=== PATIENT | male | born 1985 | race Caucasian/White ===

== ENCOUNTER → 2018-02-24 14:12 | Outpatient (CLI) | payer MEDICAID, SELFPAY ==
[2018-02-24 15:21] LABS: Absolute Neutrophil Count 3.1 X10^3/uL (2.0-7.7); Basophil# 0.02 X10^3/uL; Basophil% 0.4 % (0-1); Eosinophil# 0.24 X10^3/uL; Eosinophils% 4.7 % (0-5); Hematocrit 42.1 % (40-54); Hemoglobin 15.1 g/dl (13.0-16.5); Lymphocyte % 29.2 % (19-41); Mean Corp Hgb Conc 35.9 g/gl (32-36); Mean Corpuscular Hgb 29.7 pg (27.0-32.0); Mean Corpuscular Volume 82.9 fL (80-94); Monocyte# 0.33 X10^3/uL; Monocyte% 6.4 % (0-10); Neutrophil # 3.05 X10^3/uL (2.7-7.7); Neutrophil % 59.3 % (47-70); Platelet Count 305 K/mm3 (150-450); RBC Distribution Width CV 12.9 % (11.6-14.6); RBC Distribution Width SD 38.4 fl (35.1-43.9); Red Blood Count 5.08 M/mm3 (4.6-6.2); White Blood Count 5.1 K/mm3 (4.4-11.0)
[2018-02-24 15:23] LABS: POSITIVE COUNT NO; POSITIVE DIFFERENTIAL NO; POSITIVE MORPHOLOGY NO
[2018-02-24 15:43] LABS: ALB/GLOB Ratio 1.1 RATIO (0.9-2.4); AST(SGOT) 56 U/L (15-37); Alanine Aminotransfer ALT/SGPT 75 U/L (16-61); Albumin, Serum 3.9 g/dL (3.2-5.0); Alkaline Phosphatase 98 U/L (45-117); Anion Gap 12 (5-15); BUN 5 mg/dL (7-18); BUN/Creat Ratio 4.8 RATIO (10-20); Calcium,Total 8.6 mg/dL (8.5-10.1); Chloride 99 mmol/L (98-107); Creatinine, Serum 1.04 mg/dL (0.70-1.30); EST Glomerular Filtration Rate 87 mL/min (>60); Est Glom Filt Rate - Afr Amer 106 mL/min (>60); Globulin 3.6 g/dL (2.2-4.2); Glucose 269 mg/dL (74-106); Potassium 3.3 mmol/L (3.5-5.1); Protein, Total 7.5 g/dL (6.4-8.2); Sodium Level 134 mmol/L (136-145); Thyroid Stim Hormone (TSH) 1.41 uIU/mL (0.358-3.74)
[2018-02-25 10:30] LABS: Hemoglobin A1c 6.7 % (4.2-6.3)
== END ==
PROVIDERS: Family Provider Family Medicine Geriatric Medicine; PCP Family Medicine Geriatric Medicine; Visit Provider Family Medicine Geriatric Medicine
DX: R53.83 Other fatigue (principal); R79.9 Abnormal finding of blood chemistry, unspecified
CPT/HCPCS: 36415; 80053; 83036; 84443; 85025

== ENCOUNTER 2018-04-23 19:09 | Emergency (ER) | payer MEDICAID, SELFPAY ==
[2018-04-23 19:11] VITALS: BP 164/82; PULSE 87; RESP 16; TEMP 36.6; O2SAT 98; BMI 36.2
--- NOTE | 2018-04-23 19:49 | CT_ITS ---
STUDY: CT ABDOMEN AND PELVIS WITHOUT CONTRAST REASON FOR EXAM: Male, 32 years old. Right groin pain RADIATION DOSAGE (If Supplied By Facility): CTDIvol = ( 20.17 ) mGy, DLP = ( 1194.29 ) mGycm TECHNIQUE: Transaxial images were obtained from the dome of the diaphragm to the symphysis pubis without oral contrast, and without intravenous contrast. Sagittal and coronal images were reconstructed. Individualized dose optimization techniques were used for this CT. COMPARISON: None. FINDINGS: Evaluation of the abdominal viscera is limited in the absence of intravenous contrast. The visualized lung bases are clear. The visualized portions of the heart and pericardium are within normal limits. There are no calcified gallstones present. The liver is low in density, consistent with fatty infiltration. The spleen is enlarged, measuring 13.9 cm in maximal dimension. The pancreas demonstrates an unremarkable unenhanced appearance. The adrenal glands are within normal limits. There are no renal or ureteral stones. There is no hydronephrosis. Normal visualized stomach. There is no bowel obstruction or inflammation. The appendix is visualized and appears normal. The aorta is normal in caliber. There is no abdominal or pelvic free air, free fluid, fluid collection or lymphadenopathy. There are no destructive osseous lesions. CT/Abdomen/Pelvis without Cont IMPRESSION: Fatty liver. Splenomegaly. No bowel obstruction or inflammation. Normal appendix. No urinary calculi. No hydronephrosis. Electronically Signed: Conrado Parish, at 20:38 EDT Tel , Service support ,
--- NOTE | 2018-04-23 21:24 | ED.VISSUMM ---
- ER Visit Summary Date of Service: 04/23/18 Chief Complaint: Right groin pain History of Present Illness: The patient is a 32 M who presents with right groin pain. It began after moving a refrigerator 3 weeks ago. He states that it has been worsening. He is concerned for possible hernia. He denies abdominal pain nausea vomiting chest pain shortness breath fevers rash review of systems otherwise negative. Pain is sharp. It is worse with certain movements or palpation. Physical Examination: Afebrile vitals are unremarkable Moist mucous membranes Heart regular rate and rhythm Lungs clear Abdomen soft nontender nondistended he does have some right groin tenderness no palpable hernia normal genitourinary exam Test Results: CT of the abdomen and pelvis shows splenic megaly but no acute findings no note is made of hernia. Emergency Department Course and Treatment: Patient is resting comfortably on reevaluation. He was advised this is most likely a muscular strain. He was advised on supportive care. He was instructed on specific signs and symptoms to monitor for and conditions under which to return to the emergency department. He was advised to follow-up with her primary care physician was discharged home. Treatment Plan: [] Disposition: Discharge Impression: Right groin strain This note was generated with [employer] dictation software. It may contain incorrect words, spelling, and punctuation that were not noted in review of the chart prior to signing ED Disposition - Plan for ED Patient: Chief Complaint: Other, Pain/Inj Referrals: Andrea Lazaro Chi, MD [Primary Care Provider] -
--- NOTE | 2018-04-23 21:26 | ED.DEP ---
ED Disposition - Plan for ED Patient: Chief Complaint: Other, Pain/Inj Instructions: ED Strain Groin Referrals: Andrea Lazaro Chi, MD [Primary Care Provider] -
[2018-04-23 21:35] VITALS: BP 140/80; PULSE 70; RESP 18; O2SAT 100
== END 2018-04-23 21:36 | disposition home or self-care (01) ==
LOC: ED 19:56
PROVIDERS: Emergency Provider Emergency Medicine; Family Provider Family Medicine Geriatric Medicine; PCP Family Medicine Geriatric Medicine
DX: S39.011A Strain of muscle, fascia and tendon of abdomen, initial encounter (principal); F31.9 Bipolar disorder, unspecified; Z79.899 Other long term (current) drug therapy; X50.0XXA Overexertion from strenuous movement or load, initial encounter; Y93.89 Activity, other specified; Y92.000 Kitchen of unspecified non-institutional (private) residence as the place of occurrence of the external cause; Y99.8 Other external cause status
CPT/HCPCS: 74176; 99282

== ENCOUNTER → 2019-04-25 12:13 | Outpatient (CLI) | payer MEDICAID, SELFPAY ==
[2019-04-25 12:43] LABS: Absolute Lymphocyte Count 1.32 X10^3/ul (0.83-4.51); Absolute Neutrophil Count 2.8 X10^3/uL (2.0-7.7); Basophil# 0.03 X10^3/uL; Basophil% 0.6 % (0-1); Eosinophil# 0.38 X10^3/uL; Eosinophils% 7.8 % (0-5); Hematocrit 42.5 % (40-54); Hemoglobin 15.2 g/dl (13.0-16.5); Lymphocyte # 1.32 X10^3/ul (4.0); Lymphocyte % 27.2 % (19-41); Mean Corp Hgb Conc 35.8 g/gl (32-36); Mean Corpuscular Hgb 28.6 pg (27.0-32.0); Mean Platelet Vol. 9.7 fl (6.2-12.0); Monocyte# 0.34 X10^3/uL; Neutrophil # 2.78 X10^3/uL (2.7-7.7); Neutrophil % 57.2 % (47-70); Platelet Count 238 K/mm3 (150-450); RBC Distribution Width CV 13.6 % (11.6-14.6); RBC Distribution Width SD 37.9 fl (35.1-43.9); Red Blood Count 5.31 M/mm3 (4.6-6.2); White Blood Count 4.9 K/mm3 (4.4-11.0)
[2019-04-25 12:45] LABS: POSITIVE COUNT NO; POSITIVE DIFFERENTIAL NO; POSITIVE MORPHOLOGY NO
[2019-04-25 13:14] LABS: AST(SGOT) 33 U/L (15-37); Alanine Aminotransfer ALT/SGPT 68 U/L (16-61); Albumin, Serum 3.6 g/dL (3.2-5.0); Alkaline Phosphatase 84 U/L (45-117); Anion Gap 11 (5-15); BUN 10 mg/dL (7-18); BUN/Creat Ratio 11.1 RATIO (10-20); Calcium,Total 8.6 mg/dL (8.5-10.1); Chloride 100 mmol/L (98-107); EST Glomerular Filtration Rate 103 mL/min (>60); Est Glom Filt Rate - Afr Amer 124 mL/min (>60); Globulin 3.5 g/dL (2.2-4.2); Glucose 338 mg/dL (74-106); Potassium 3.8 mmol/L (3.5-5.1); Protein, Total 7.1 g/dL (6.4-8.2); Sodium Level 135 mmol/L (136-145); Thyroid Stim Hormone (TSH) 2.07 uIU/mL (0.358-3.74)
[2019-04-25 17:43] LABS: Hemoglobin A1c 8.2 % (4.2-6.3)
== END ==
PROVIDERS: Family Provider Family Medicine Geriatric Medicine; PCP Family Medicine Geriatric Medicine; Visit Provider Family Medicine Geriatric Medicine
DX: R53.83 Other fatigue (principal)
CPT/HCPCS: 36415; 80053; 83036; 84443; 85025

== ENCOUNTER → 2019-06-26 08:56 | Outpatient (CLI) | payer MEDICAID, SELFPAY ==
[2019-06-26 09:40] LABS: Absolute Lymphocyte Count 1.33 X10^3/uL (0.83-4.51); Basophil# 0.03 X10^3/uL; Basophil% 0.6 % (0-1); Eosinophil# 0.38 X10^3/uL; Eosinophils% 7.4 % (0-5); Hematocrit 40.2 % (40-54); Hemoglobin 14.3 g/dL (13.0-16.5); Lymphocyte # 1.33 X10^3/ul (4.0); Lymphocyte % 25.9 % (19-41); Mean Corp Hgb Conc 35.6 g/dL (32-36); Mean Corpuscular Hgb 29.2 pg (27.0-32.0); Mean Corpuscular Volume 82.2 fL (80-94); Mean Platelet Vol. 9.4 fl (6.2-12.0); Monocyte# 0.41 X10^3/uL; NRBC Flagged by Analyzer 0 % (0-5); Neutrophil # 2.97 X10^3/uL (2.7-7.7); Neutrophil % 57.9 % (47-70); Platelet Count 238 K/mm3 (150-450); RBC Distribution Width CV 12.5 % (11.6-14.6); RBC Distribution Width SD 37.1 fl (35.1-43.9); Red Blood Count 4.89 M/mm3 (4.6-6.2); White Blood Count 5.1 K/mm3 (4.4-11.0)
[2019-06-26 10:09] LABS: ALB/GLOB Ratio 0.9 RATIO (0.9-2.4); AST(SGOT) 21 U/L (15-37); Alanine Aminotransfer ALT/SGPT 51 U/L (16-61); Albumin, Serum 3.6 g/dL (3.2-5.0); Alkaline Phosphatase 85 U/L (45-117); Anion Gap 9 (5-15); BUN 7 mg/dL (7-18); BUN/Creat Ratio 7.3 RATIO (10-20); Calcium,Total 9.1 mg/dL (8.5-10.1); Chloride 102 mmol/L (98-107); Creatinine, Serum 0.96 mg/dL (0.70-1.30); EST Glomerular Filtration Rate 95 mL/min (>60); Est Glom Filt Rate - Afr Amer 114 mL/min (>60); Globulin 3.8 g/dL (2.2-4.2); Glucose 334 mg/dL (74-106); Potassium 3.8 mmol/L (3.5-5.1); Protein, Total 7.4 g/dL (6.4-8.2); Sodium Level 137 mmol/L (136-145)
[2019-06-28 20:18] LABS: HEPATITIS B SURFACE AG Negative (Negative); Hepatitis A AB, Total Negative (Negative); Hepatitis A IgM Antibody Negative (Negative); Hepatitis B Core AB IgM Negative (Negative); Hepatitis B Core Ab Total Negative (Negative); Hepatitis C Ab <0.1 s/co ratio (0.0-0.9); QNTFERON TB Mitogen Value > 10.00 IU/mL (.); QNTFERON TB Nil Value 0.02 IU/mL (.); QNTFERON TB1+ Ag Value 0.03 IU/mL (.); QNTFERON TB2+ Ag Value 0.03 IU/mL (.)
[2019-06-29 09:38] LABS: Hep B Surface Antibodies Non Reactive (.); QNTIFERON TB Positive Criteria Negative (Negative)
== END ==
PROVIDERS: Family Provider Family Medicine Geriatric Medicine; PCP Family Medicine Geriatric Medicine; Referring Provider Dermatology Pediatric Dermatology; Visit Provider Dermatology Pediatric Dermatology
DX: L40.0 Psoriasis vulgaris (principal); Z79.899 Other long term (current) drug therapy
CPT/HCPCS: 36415; 80053; 85025; 86480; 86704; 86705; 86706; 86708; 86709; 86803; 87340

== ENCOUNTER 2022-02-26 14:46 | Outpatient (CLI) | payer OTHER, SELFPAY ==
[2022-02-26 15:16] LABS: Absolute Lymphocyte Count 1.02 X10^3/uL (0.83-4.51); Absolute Neutrophil Count 3.3 X10^3/uL (2.0-7.7); Basophil# 0.03 X10^3/uL; Basophil% 0.6 % (0-1); Eosinophil# 0.23 X10^3/uL; Eosinophils% 4.5 % (0-5); Hematocrit 44.2 % (40-54); Hemoglobin 15.8 g/dL (13.0-16.5); Lymphocyte # 1.02 X10^3/ul (0.83-4.51); Lymphocyte % 20.1 % (19-41); Mean Corp Hgb Conc 35.7 g/dL (32-36); Mean Corpuscular Hgb 29.6 pg (27.0-32.0); Mean Corpuscular Volume 82.8 fL (80-94); Mean Platelet Vol. 8.9 fl (6.2-12.0); Monocyte# 0.52 X10^3/uL; Monocyte% 10.2 % (0-10); NRBC Flagged by Analyzer 0 % (0-5); Neutrophil # 3.27 X10^3/uL (2.7-7.7); Neutrophil % 64.4 % (47-70); Platelet Count 222 K/mm3 (150-450); RBC Distribution Width SD 38.6 fl (35.1-43.9); Red Blood Count 5.34 M/mm3 (4.6-6.2); White Blood Count 5.1 K/mm3 (4.4-11.0)
[2022-02-26 15:34] LABS: Erythrocyte Sedimentation Rate 14 mm/hr (0-20)
[2022-02-26 15:49] LABS: ALB/GLOB Ratio 1.1 RATIO (0.9-2.4); AST(SGOT) 30 U/L (15-37); Alanine Aminotransfer ALT/SGPT 66 U/L (16-61); Albumin, Serum 3.9 g/dL (3.2-5.0); Alkaline Phosphatase 90 U/L (45-117); Anion Gap 6 (5-15); BUN 5 mg/dL (7-18); BUN/Creat Ratio 5.7 RATIO (10-20); Calcium,Total 8.9 mg/dL (8.5-10.1); Chloride 102 mmol/L (98-107); Creatinine, Serum 0.88 mg/dL (0.70-1.30); EST Glomerular Filtration Rate 104 mL/min (>60); Est Glom Filt Rate - Afr Amer 126 mL/min (>60); Globulin 3.7 g/dL (2.2-4.2); Glucose 274 mg/dL (74-106); LDH 199 U/L (87-241); Potassium 3.8 mmol/L (3.5-5.1); Protein, Total 7.6 g/dL (6.4-8.2); Sodium Level 134 mmol/L (136-145)
[2022-03-03 12:00] LABS: Anti-Centromere B Ab <0.2 AI (0.0-0.9); Anti-Chromatin <0.2 AI (0.0-0.9); Anti-Jo <0.2 AI (0.0-0.9); Anti-Scleroderma-70 AB <0.2 AI (0.0-0.9); RNP Ab <0.2 AI (0.0-0.9); SJOGREN'S Anti-SS-A test < 0.2 AI (0.0-0.9); SJOGREN'S Anti-SS-B test < 0.2 AI (0.0-0.9); Smith Ab <0.2 AI (0.0-0.9)
[2022-03-03 12:01] LABS: Endomysial Antibody IgA Negative (Negative); Immunoglobulin A 133 mg/dL (90-386); Immunoglobulin E 203 IU/mL (6-495); Immunoglobulin G 965 mg/dL (603-1613)
[2022-03-03 12:14] LABS: Immunoglobulin M 50 mg/dL (20-172); t-Transglutaminase IgA <2 U/mL (0-3)
[2022-03-03 16:58] LABS: Anti-dsDNA Ab <1 IU/mL (0-9)
== END 2022-02-26 23:59 | disposition home or self-care (01) ==
LOC: LAB 14:47
PROVIDERS: PCP Family Medicine Geriatric Medicine; Visit Provider Internal Medicine Gastroenterology
DX: K50.90 Crohn's disease, unspecified, without complications (principal)
CPT/HCPCS: 36415; 80053; 82784; 82785; 83516; 83615; 85025; 85652; 86140; 86225; 86235; 86255

== ENCOUNTER 2023-01-11 08:23 | Day surgery (SDC) | payer MEDICAID, SELFPAY ==
[2023-01-11 09:01] VITALS: BP 137/86; PULSE 80; RESP 16; TEMP 36.2; O2SAT 98; BMI 36.2
--- NOTE | 2023-01-11 09:30 | RAD_ITS ---
STUDY: X-RAY - CERVICAL SPINE REASON FOR EXAM: Male, 37 years old. EPIDURAL INJECTION C7-T1 TECHNIQUE: 4 intraoperative C-arm films view(s) of the cervical spine were obtained. COMPARISON: None FINDINGS: 4 limited intraoperative C-arm films of the cervical spine were performed as the patient has undergone epidural injections. No intraoperative complications noted. RAD/Spine 1 View Any Level IMPRESSION: No intraoperative complications during epidural injection of the cervical spine. Electronically Signed: Chalino Dominguez MD at 15:06 EST ,
[2023-01-11 09:36] LABS: Bedside Glucose 151 mg/dL (74-106)
[2023-01-11] MEDS: MethylPREDNISolone Acetate 80 MG/ML Vial (10:51)
--- NOTE | 2023-01-11 10:56 | OP.PCM_ITS ---
Report of Operation Date of Procedure: 01/11/23 Description of Surgical Findings:: PREOPERATIVE DIAGNOSES: Cervical radiculopathy, cervical spinal stenosis, cervical degenerative disc disease POSTOPERATIVE DIAGNOSES: Cervical radiculopathy, cervical spinal stenosis, cervical degenerative disc disease PROCEDURE PERFORMED: Cervical epidural steroid injection, interlaminar at C7-T1 under fluoroscopic guidance. ANESTHESIA: Local. BLOOD LOSS: Minimal. COMPLICATIONS: None. DESCRIPTION OF PROCEDURE: History and physical of today was reviewed. Risks and benefits of the procedure were explained. The patient understood and agreed to proceed. Informed consent was obtained. IV inserted per routine protocol. The patient was taken to the operating room and placed in the prone position with a pillow positioned underneath the chest. The neck area was prepped and draped in a sterile fashion using iodine x3. Under fluoroscopy guidance on an AP view, the C7-T1 interlaminar space was identified. The skin and subcutaneous tissue was anesthetized with approximately 3 mL of 1% lidocaine using a 25-gauge regular needle. Under direct visualization on fluoroscopy, on AP view, using a 20-gauge 2-1/2-inch Tuohy needle, the needle was advanced via the skin. The tip of the needle was maneuvered and directed towards the interlaminar space at C7- T1. Loss of resistance technique was carried to air. Loss of resistance technique was encountered. Once encountered, after negative aspiration for blood and CSF, a total of 1 mL of contrast was injected to confirm correct placement of the needle as well as cephalocaudal spread of the contrast. Confirmation was obtained on AP as well as lateral view. After repeated negative aspiration and confirmation, a total of 3 mL of preservative-free normal saline and 80 mg of Depo-Medrol was injected easily. The needle was then removed intact. The patient experienced no sign or symptoms of intrathecal or intravascular injection. The patient experienced no paresthesia. The procedure was completed without any apparent difficulty or any complications. The patient appeared to tolerate it well. ASSESSMENT AND PLAN: This is a 37-year-old male with cervical radiculopathy, cervical spinal stenosis, cervical degenerative disc disease status post cervical epidural steroid injection interlaminar at C7-T1 under fluoroscopic guidance, patient will continue his current medications, patient will follow approximately 2 weeks for reevaluation.
== END 2023-01-11 13:20 | disposition home or self-care (01) ==
LOC: SDC 08:31 → AC 08:51
PROVIDERS: PCP Registered Nurse; Referring Provider Anesthesiology Pain Medicine; Visit Provider Anesthesiology Pain Medicine
PROC: 3E0S3BZ Introduction of Anesthetic Agent into Epidural Space, Percutaneous Approach (ICD-10-PCS; CPT 62320; principal; 2023-01-11 10:25)
DX: M48.02 Spinal stenosis, cervical region (principal); M46.1 Sacroiliitis, not elsewhere classified; E11.9 Type 2 diabetes mellitus without complications; M50.10 Cervical disc disorder with radiculopathy, unspecified cervical region; M50.30 Other cervical disc degeneration, unspecified cervical region; M47.812 Spondylosis without myelopathy or radiculopathy, cervical region; Z79.899 Other long term (current) drug therapy
CPT/HCPCS: 62321; 64490; 72020; 82962; A4216

== ENCOUNTER 2023-05-10 06:59 | Day surgery (SDC) | payer MEDICAID, SELFPAY ==
[2023-05-10] VITALS (7 sets, daily range): BP systolic 109–121; BP diastolic 69–84; PULSE 67–74; RESP 16–18; TEMP 35.9–36.5; O2SAT 95–100; BMI 35.9
[2023-05-10] MEDS: Lactated Ringers 1,000 ML 15 ML IV (07:32)
[2023-05-10 07:59] LABS: Bedside Glucose 165 mg/dL (74-106)
--- NOTE | 2023-05-10 09:10 | RAD_ITS ---
STUDY: INTRAOPERATIVE FLUOROSCOPY TECHNIQUE: The examination was performed with referring physician in attendance. Under fluoroscopic observation, fluoroscopic images were obtained. Radiologist was not present for the study. Radiologist did not perform the procedure. This dictation is for documentation of the radiation dosage only. There is no interpretation of the images. TOTAL NUMBER OF IMAGES: 6 COMPARISON: None RADIATION DOSE: 2.41 mGy FLUOROSCOPY TIME: 16.6 seconds REASON FOR EXAM: LEFT CERVICAL RADIO FREQ ABLATION Male, 37 years old. FINDINGS: Images of the cervical spine. [place] pointing at the cervical levels. RAD/Cerv Spine 4 or 5 Views IMPRESSION: Fluoroscopic assistance images were obtained. Dictation for documentation purposes only. Electronically Signed: Eyad Erwin MD at 15:40 EDT ,
[2023-05-10] MEDS: Lidocaine 1% (30 ml sdv) 30 ML Vial (09:20)
[2023-05-10] MEDS: MethylPREDNISolone Acetate 40 MG/ML Vial IM (09:20)
--- NOTE | 2023-05-10 11:14 | PCM.OPRPT ---
Report of Operation Date of Procedure: 05/10/23 Description of Surgical Findings:: PREOPERATIVE DIAGNOSIS: Cervical spondylosis, cervical degenerative disc disease, cervical facet arthropathy POSTOPERATIVE DIAGNOSIS: Cervical spondylosis, cervical degenerative disc disease, cervical facet arthropathy PROCEDURE PERFORMED: Left-sided radiofrequency ablation of the medial branch at C4, C5, C6, and C7. ANESTHESIA: MAC. BLOOD LOSS: Minimal. COMPLICATIONS: None. DESCRIPTION OF PROCEDURE: History and physical of today was reviewed. Risks and benefits of the procedure were explained. The patient understood and agreed to proceed. Informed consent was obtained. IV inserted per routine protocol. The patient was taken to the operating room and placed in the prone position with a pillow positioned underneath the chest. The neck area was prepped and draped in a sterile fashion using iodine x3. Under fluoroscopy guidance on an AP view, the C4 through C7 vertebral bodies were visualized. The skin and subcutaneous tissue was anesthetized with approximately 10 mL of 1% lidocaine using a 25-gauge regular needle. Under direct visualization on fluoroscopy on a lateral view, using a 21-gauge 10-cm with a 10-mm curved active-tip radiofrequency ablation needle, the needle was passed through the skin. The tip of the needle was maneuvered and directed towards the epiphyseal junction of each corresponding vertebra, starting on the left C4, ending on the left C7, passing through the C5 and C6. Once the tip of the needle was at the vicinity of the medial branch and at the middle of the trapezoid on the lateral view, the stylette of each needle was then removed. After negative aspiration of blood or CSF and confirmation on AP, oblique as well as lateral view, radiofrequency ablation probe was then inserted at each level. Impedance was then recorded at C4 to be 254 ohm, at C5 to be 260 ohm, at C6 to be 241 ohm, and at C7 to be 272 ohm. Motor-evoked potential was then initiated to 1.5 volt without any motor response to each corresponding level or the left arm. The probe was then removed intact and a total of 4 mL of preservative-free 1% lidocaine was injected in divided doses between those four levels after negative aspiration of blood or CSF. After repeated confirmation, the radiofrequency ablation probe was then inserted and after repeated confirmation on AP, oblique as well as lateral view, radiofrequency ablation was then initiated to approximately 80 degree Celsius for 60 second at each level. Once concluded, the probe was then removed intact. A total of 4 mL of preservative-free 0.25% Marcaine with 40 mg of Depo-Medrol was injected in divided doses between those four levels. The needles were then removed intact. The patient experienced no sign or symptoms of intrathecal or intravascular injection. The patient experienced no paresthesia. The procedure was completed without any apparent difficulty or any complications. The patient appeared to tolerate it well. Sensory as well as motor exam was unchanged from prior to the procedure. ASSESSMENT AND PLAN: This is a 37-year-old male with cervical spondylosis, cervical degenerative disc disease, cervical facet arthropathy status post left-sided cervical radiofrequency ablation of the medial branch C4-C7, patient will continue his current medications, patient will follow approximately 2 weeks for reevaluation.
== END 2023-05-10 10:27 | disposition home or self-care (01) ==
LOC: SDC 07:01 → AC 07:01
PROVIDERS: PCP Registered Nurse; Referring Provider Anesthesiology Pain Medicine; Visit Provider Anesthesiology Pain Medicine
PROC: (CPT 64633; principal; 2023-05-10 08:40)
DX: M47.812 Spondylosis without myelopathy or radiculopathy, cervical region (principal); K50.90 Crohn's disease, unspecified, without complications; E11.9 Type 2 diabetes mellitus without complications; M50.30 Other cervical disc degeneration, unspecified cervical region; E78.2 Mixed hyperlipidemia
CPT/HCPCS: 64633; 64634 ×3; 72050; 76000; 82962; J7120

== ENCOUNTER 2024-02-07 06:04 | Day surgery (SDC) | payer MEDICAID, SELFPAY ==
[2024-02-07 06:38] VITALS: BP 123/81; PULSE 79; RESP 18; TEMP 36; O2SAT 98; BMI 34.2
[2024-02-07] MEDS: Lactated Ringers 1,000 ML 15 ML IV (06:47)
[2024-02-07 07:06] LABS: Bedside Glucose 112 mg/dL (74-106)
--- NOTE | 2024-02-07 08:07 | RAD_ITS ---
PROCEDURE: Lumbar transforaminal right L4-L5 and L5-S1 injections. DATE OF EXAMINATION: February 07, 2024. INDICATION: Male, 38 years old. Low back pain. FLUOROSCOPY TIME (if supplied): (5 seconds) minutes/seconds. 3.24 mGy. 4 spot images were submitted. RAD/Lumbar Spine 2 or 3 Views IMPRESSION: Intraoperative imaging provided for right L4-S1 lumbar transforaminal epidural steroid injection. Electronically Signed: Edgar Barnes MD at 9:55 EDT ,
[2024-02-07] MEDS: Lidocaine 1% (5 ml sdv) 5 ML Vial (08:14)
[2024-02-07] MEDS: MethylPREDNISolone Acetate 80 MG/ML Vial (08:14)
--- NOTE | 2024-02-07 08:20 | OP.PCM_ITS ---
Report of Operation Date of Procedure: 02/07/24 Description of Surgical Findings:: PREOPERATIVE DIAGNOSIS: Lumbosacral radiculopathy, lumbosacral spinal stenosis, lumbosacral degenerative disc disease POSTOPERATIVE DIAGNOSIS: Lumbosacral radiculopathy, lumbosacral spinal stenosis, lumbosacral degenerative disc disease PROCEDURE PERFORMED: Right sided lumbar transforaminal epidural steroid injectio n, L4-5 and L5-S1. ANESTHESIA: MAC BLOOD LOSS: Less than 5 cc COMPLICATIONS: None DESCRIPTION OF PROCEDURE: History and physical of today was reviewed. Risks and benefits of the procedure were explained. The patient understood and agreed to proceed. Informed consent was obtained. IV inserted per routine protocol. The patient was taken to the operating room and placed in the prone position with a pillow positioned underneath the abdomen. The right side of the lower back was prepped and draped in a sterile fashion using iodine x3. Under fluoroscopy guidance on oblique view, the L4 through S1 vertebral bodies were visualized. The skin and subcutaneous tissue was anesthetized with approximately 5 mL of 1% lidocaine using a 25-gauge regular needle. Under direct visualization with fluoroscopy at approximately 35-degree angle, starting on the right L4, ending on the right L5, using a 22-gauge 5-inch spinal needle, the needle was advanced via the skin. The tip of the needle was maneuvered and directed towards the inferior and medial gutter of the transverse process at the superiormost aspect of the neural foramen. Once the tip of the needle was at the vicinity of the foramen, after negative aspiration for blood or CSF, a total of 1 mL of contrast was injected in divided doses between both levels to confirm correct placement of the needle as well as medial spread. The confirmation was obtained on AP as well as lateral view. After repeated negative aspiration and confirmation on AP as well as lateral view, a total of 6 mL of preservative-free 0.25% Marcaine with 80 mg of Depo-Medrol was injected in divided doses between both levels. The needles were then removed intact. The patient experienced no sign or symptoms of intrathecal or intravascular injection. The patient experienced no paresthesia. The procedure was completed without any apparent difficulty or any complications. The patient appeared to tolerate it well. Assessment and plan: This is a 38-year-old male with lumbosacral radiculopathy and a lumbosacral spinal stenosis lumbosacral degenerative disc disease, status post right-sided lumbar transforaminal epidural steroid injection L4-5, L5-S1, patient will continue his current medications, patient will follow in approximately 2 weeks for reevaluation.
[2024-02-07 08:21] VITALS: BP 121/81; BP 123/81; PULSE 73; RESP 16; TEMP 36.5; O2SAT 96
[2024-02-07 08:25] VITALS: BP 113/79; BP 123/81; PULSE 77; RESP 16; O2SAT 97
[2024-02-07 08:30] VITALS: BP 114/86; BP 123/81; PULSE 75; RESP 16; O2SAT 93
[2024-02-07 08:36] VITALS: BP 123/81; PULSE 75; RESP 16; TEMP 36.8; O2SAT 95
[2024-02-07 08:45] VITALS: BP 123/81
== END 2024-02-07 08:52 | disposition home or self-care (01) ==
LOC: SDC 06:07 → AC 06:07
PROVIDERS: PCP Registered Nurse; Referring Provider Registered Nurse; Visit Provider Anesthesiology Pain Medicine
PROC: 3E0S3BZ Introduction of Anesthetic Agent into Epidural Space, Percutaneous Approach (ICD-10-PCS; CPT 64484; principal; 2024-02-07 08:05)
DX: M48.07 Spinal stenosis, lumbosacral region (principal); E11.9 Type 2 diabetes mellitus without complications; M46.1 Sacroiliitis, not elsewhere classified; M47.812 Spondylosis without myelopathy or radiculopathy, cervical region; M54.12 Radiculopathy, cervical region; M48.02 Spinal stenosis, cervical region; Z79.899 Other long term (current) drug therapy; E78.2 Mixed hyperlipidemia; Z87.19 Personal history of other diseases of the digestive system; E66.9 Obesity, unspecified; Z68.34 Body mass index [BMI] 34.0-34.9, adult
CPT/HCPCS: 64484; 01992; 64483; 72100; 82962; J7120

== ENCOUNTER 2024-05-08 08:04 | Day surgery (SDC) | payer MEDICAID, SELFPAY ==
[2024-05-08] VITALS (7 sets, daily range): BP systolic 106–122; BP diastolic 70–84; PULSE 67–76; RESP 16–18; TEMP 36.4–37; O2SAT 95–99; BMI 47.0
--- NOTE | 2024-05-08 08:55 | PCM.PRE.AN2 ---
ASA Classification* ASA Classification ASA Classification: 3 Assessment & Plan Anesthesia* Anesthesia Assessment Anesthesia Assessment: Discussed sedation and/or anesthesia options, risks, benefits, and alternatives with patient/parents/legal guardian/POA. Questions invited. The patient/parents/legal guardian/POA seems to understand and agrees to proceed with anesthesia plan. Reviewed the physical assessment, medical history, allergy history and patient home medications list prior to surgery/procedure/anesthetic and documented any changes. Performed airway and anesthesia risk assessments. 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 When Was Last Pacemaker Check QUESTION #4 FULL TEXT: You/Your Family Experience fever (hyperthermia) with Anesthesia Last Oral Intake Last Oral intake: Last Oral Intake NPO since Meds taken in AM with sips of water? Meds patient instructed to take am of surgery PONV PONV - security attendant: PONV - security attendant Female No 05/02/24 13:57 HX of Motion Sickness No 05/02/24 13:57 HX of N/V After Surgery No 05/02/24 13:57 Non-Smoker Yes 05/02/24 13:57 Duration of Surgery greater No 05/02/24 13:57 than 60 minutes Number of Risk Factors 1 05/02/24 13:57 PONV Score Low Risk 05/02/24 13:57 Height & Weight Height & Weight: Anesthesia: Height & Weight Height 5 ft 11 in 02/07/24 06:38 Respiratory Assessment Respiratory Assessment - security attendant: Respiratory Tract Infection Hx - security attendant Hx Respiratory Tract Infection No 05/02/24 13:57 STOP Sleep Apnea STOP Sleep Apnea - security attendant: STOP Sleep Apnea - security attendant Hx Hypertension No 05/02/24 13:57 Hx Sleep Apnea No 05/02/24 13:57 CPAP BIPAP Do you snore loudly (louder Yes 05/02/24 13:57 than talking or can be heard Do you often feel tired/ No 05/02/24 13:57 fatigued/ sleepy during daytime? Has anyone observed you stop No 05/02/24 13:57 breathing during sleep? STOP Results Negative 05/02/24 13:57 QUESTION #5 FULL TEXT : Do you snore loudly (louder than talking or can be heard through closed doors)? 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 Specify any problems Hx of Preganancy in last 3 N/A 05/02/24 13:57 Months Nurse Filling Out Transfusion [id number] 05/02/24 13:57 & Questions: Date: 05/02/24 05/02/24 13:57 Time: 14:00 05/02/24 13:57 Patient unable to answer at this time (ie. confused, unrespo /Reproduction History /Reproductive History - security attendant: /Reproductive Hx- security attendant Hx Now Gestational Age (in weeks): EDC: Hx Hx Para Hx Section SAB Active Medications Active Medications: Current Medications Generic Name Dose Route Start Last Admin Trade Name Freq PRN Reason Stop Dose Admin Lactated Ringer's 1,000 mls @ 15 mls/hr 05/08/24 08:45 IV .Q48H [facility] Anesthesia Focused Assessment* Airway Assessment Mouth opens: >3 cm Mallampati Score: II Focused Labs Anesthesia Preop lab: CBC WBC 5.1 K/mm3 (4.4-11.0) 02/26/22 14:52 RBC 5.34 M/mm3 (4.6-6.2) 02/26/22 14:52 Hgb 15.8 g/dL (13.0-16.5) 02/26/22 14:52 Hct 44.2 % (40-54) 02/26/22 14:52 Plt Count 222 K/mm3 (150-450) 02/26/22 14:52 CHEMISTRY Potassium 3.8 mmol/L (3.5-5.1) 02/26/22 14:52 Sodium 134 mmol/L (136-145) L 02/26/22 14:52 BUN 5 mg/dL (7-18) L 02/26/22 14:52 Creatinine 0.88 mg/dL (0.70-1.30) 02/26/22 14:52 Glucose 274 mg/dL (74-106) H 02/26/22 14:52 TSH 2.07 uIU/mL (0.358-3.74) 04/25/19 12:14 COAG Review of Systems (Anesthesia) ROS Narrative System reviewed and no additional complaints, except as documented. [facility] Medical History Schizophrenia Bipolar disorder Depression Anxiety Gastric reflux Non-smoker Leg muscle spasm Family history of fatty liver History of Crohn's disease 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 due to type 2 diabetes mellitus Diabetes mellitus type 2 in obese Chronic back pain greater than 3 months duration Body mass index [BMI] 34.0-34.9, adult Home Medications ?Medication ?Instructions ?Recorded ?Last Taken ?Type hydroxyzine pamoate 25 mg capsule 25 mg PO BID 04/13/16 02/06/24 History benztropine 1 mg tablet 1 mg PO DAILY 02/10/22 02/06/24 History escitalopram oxalate 10 mg tablet 10 mg PO DAILY 02/10/22 02/06/24 History (Lexapro) fenofibrate nanocrystallized 145 145 mg PO DAILY 02/10/22 Unknown History mg tablet fluticasone propionate 50 1 spray intranasal DAILY 02/10/22 02/06/24 History mcg/actuation nasal spray,suspension gabapentin 100 mg capsule 100 mg PO BID 02/10/22 02/06/24 History glimepiride 2 mg tablet 2 mg PO DAILY 02/10/22 02/06/24 History metformin 1,000 mg tablet 2,000 mg PO BID 02/10/22 02/06/24 History dapagliflozin propanediol 5 mg 5 mg PO DAILY 02/07/24 02/06/24 History tablet (Farxiga) haloperidol 10 mg tablet 10 mg PO DAILY 02/07/24 02/06/24 History Allergy/AdvReac Type Severity Reaction Status Date / Time naproxen Allergy Intermediate Other Verified 05/02/24 13:54 Penicillins Allergy Hives Verified 05/02/24 13:54 prednisone Allergy Hives Verified 05/02/24 13:54 quetiapine fumarate (From Allergy Other Verified 05/02/24 13:54 Seroquel) Surgical History History of cholecystectomy Social History Smoking Status: Never smoker
[2024-05-08] MEDS: Lactated Ringers 1,000 ML 15 ML IV (08:56)
[2024-05-08 09:15] LABS: Bedside Glucose 113 mg/dL (74-106)
--- NOTE | 2024-05-08 10:44 | RAD_ITS ---
EXAM: FL FLUOROSCOPY < 1 HOUR CLINICAL INDICATION: RT HIP STEROID INJ TECHNIQUE: Fluoroscopy utilized for placement of needle into the left hip joint space. COMPARISON: No relevant prior studies available. FINDINGS: Single view of the right hip demonstrates contrast injected into the soft tissues adjacent to the lateral neck of the femur contrast extending into the joint bursa. Total of 4.5 seconds of fluoroscopy. Total dose of 1.29mGy. RAD/Fluoro Guided Needle Placement IMPRESSION: As above. Electronically Signed: John Sanchez MD at 14:03 EDT ,
[2024-05-08] MEDS: MethylPREDNISolone Acetate 80 MG/ML Vial (10:47)
[2024-05-08] MEDS: Lidocaine 1% (5 ml sdv) 5 ML Vial (10:47)
--- NOTE | 2024-05-08 10:52 | PCM.POST.ANE ---
Anesthesia: Postop Eval I Current Vital Signs Temperature: 97.5 F Pulse Rate: 76 Blood Pressure: 119/70 Respiratory Rate: 16 Pulse Ox: 95 Oxygen Delivery Method: Room Air Assessment Airway patent: Yes Spontaneous unlabored respirations: Yes Mental status: Awake and Calm nausea: No Vomiting: No Anesthesia Complication: No Fluid Hydration Crystalloid volume administer (ml): 200 Total IV fluid infused: 200 Progress Note Anesthesia document: Postop Eval 1 completed: Yes
--- NOTE | 2024-05-08 10:57 | PCM.OPRPT ---
Report of Operation Date of Procedure: 05/08/24 Description of Surgical Findings:: PREOPERATIVE DIAGNOSIS: Osteoarthritis of the right hip POSTOPERATIVE DIAGNOSIS: Osteoarthritis of the right hip PROCEDURE PERFORMED: Right hip intraarticular steroid injection under fluoroscopy guidance. ANESTHESIA: MAC. BLOOD LOSS: Minimal. COMPLICATIONS: None. DESCRIPTION OF PROCEDURE: History and physical of today was reviewed. Risks and benefits of the procedure were explained. The patient understood and agreed to proceed. Informed consent was obtained. IV inserted per routine protocol. The patient was taken to the operating room and placed in the supine position. The right hip area was prepped and draped in a sterile fashion using iodine x3. Under fluoroscopy guidance on AP view, the right hip joint was visualized. The skin and subcutaneous tissue was anesthetized with approximately 3 mL of 1% lidocaine using a 25-gauge regular needle approximately 3 cm cephalad to the right greater trochanter. Under direct visualization with fluoroscopy on an AP view, using a 22-gauge 5-inch spinal needle, the needle was advanced via the skin using the lateral approach. The tip of the needle was maneuvered and directed towards the superiormost aspect of the hip joint. Once the tip of the needle was at the vicinity of the joint, after negative aspiration for blood and positive aspiration of synovial fluid, a total of 1 mL of contrast was injected to confirm correct placement of the needle as well as halo spread around the hip joint. After repeated negative aspiration for blood and confirmation on AP as well as oblique view, a total of 10 mL of preservative-free 0.25% Marcaine with 80 mg of Depo-Medrol was injected easily. The needle was then removed intact. The patient experienced no sign or symptoms of intrathecal or intravascular injection. The patient experienced no paresthesia. The procedure was completed without any apparent difficulty or any complications. The patient appeared to tolerate it well. ASSESSMENT AND PLAN: This is a 38-year-old male with osteoarthritis of the right hip status post right hip intra-articular steroid injection under fluoroscopic guidance, patient will continue his current medications, patient will follow in approximately 2 weeks for reevaluation.
--- NOTE | 2024-05-08 12:39 | POSTOPAN2_ITS ---
Anesthesia Postop Eval I Sum Postop Eval Completion status Anesthesia document: Postop Eval 1 completed: Yes Anesthesia Postop Eval I Summary Anesthesia Postop Eval I Summary: Anesthesia Postop Eval I: Assessment Summary Airway patent Yes 05/08/24 11:07 [email or web address] Spontaneous unlabored Yes 05/08/24 11:07 [email or web address] respirations Mental status Awake,Calm 05/08/24 11:07 [email or web address] nausea No 05/08/24 11:07 [email or web address] Vomiting No 05/08/24 11:07 LADLERJESSICA Anesthesia Postop Eval I: Fluid Summary Crystalloid volume administer 200 05/08/24 11:07 [email or web address] (ml) Colloids volume administered ( ml) Blood Product volume administered (ml) Total IV fluid infused 200 05/08/24 11:07 LADLERJESSICA Anesthesia Postop Eval I: Summary Notes Anesthesia Complication No 05/08/24 11:07 LADLERJESSICA Anesthesia Complication Comment: Post-operative progress note Anesthesia: Postop Eval II Evaluation Mental status: Awake Pain Level: 0 nausea: No Vomiting: No Complications Anesthesia Complication: No
--- NOTE | 2024-05-08 12:39 | PCM.POSTANE2 ---
Anesthesia Postop Eval I Sum Postop Eval Completion status Anesthesia document: Postop Eval 1 completed: Yes Anesthesia Postop Eval I Summary Anesthesia Postop Eval I Summary: Anesthesia Postop Eval I: Assessment Summary Airway patent Yes 05/08/24 11:07 PHYSICAL THERAPY AIDES [email or web address] Spontaneous unlabored Yes 05/08/24 11:07 PHYSICAL THERAPY AIDES TEACHERJESSICA respirations Mental status Awake,Calm 05/08/24 11:07 PHYSICAL THERAPY AIDES TEACHER.[email or web address] nausea No 05/08/24 11:07 PHYSICAL THERAPY AIDES TEACHER.[email or web address] Vomiting No 05/08/24 11:07 PHYSICAL THERAPY AIDES TEACHERJESSICA Anesthesia Postop Eval I: Fluid Summary Crystalloid volume administer 200 05/08/24 11:07 PHYSICAL THERAPY AIDES TEACHER.[email or web address] (ml) Colloids volume administered ( ml) Blood Product volume administered (ml) Total IV fluid infused 200 05/08/24 11:07 PHYSICAL THERAPY AIDES TEACHERJESSICA Anesthesia Postop Eval I: Summary Notes Anesthesia Complication No 05/08/24 11:07 PHYSICAL THERAPY AIDES TEACHERJESSICA Anesthesia Complication Comment: Post-operative progress note Anesthesia: Postop Eval II Evaluation Mental status: Awake Pain Level: 0 nausea: No Vomiting: No Complications Anesthesia Complication: No
== END 2024-05-08 11:41 | disposition home or self-care (01) ==
LOC: SDC 08:05 → AC 08:31
PROVIDERS: PCP Registered Nurse; Referring Provider Anesthesiology Pain Medicine; Visit Provider Anesthesiology Pain Medicine
PROC: 3E0U3GC Introduction of Other Therapeutic Substance into Joints, Percutaneous Approach (ICD-10-PCS; CPT 20610; principal; 2024-05-08 09:45)
DX: M16.11 Unilateral primary osteoarthritis, right hip (principal); F31.9 Bipolar disorder, unspecified; E11.9 Type 2 diabetes mellitus without complications; F41.9 Anxiety disorder, unspecified; Z79.899 Other long term (current) drug therapy; Z79.84 Long term (current) use of oral hypoglycemic drugs
CPT/HCPCS: 20610; 01991; 76000; 77002; 82962; J7120

== ENCOUNTER 2024-09-11 08:34 | Day surgery (SDC) | payer MEDICAID, SELFPAY ==
[2024-09-11 09:08] VITALS: BP 120/76; PULSE 69; RESP 18; TEMP 36.4; O2SAT 99; BMI 48.7
[2024-09-11 10:14] LABS: Bedside Glucose 119 mg/dL (74-106)
--- NOTE | 2024-09-11 10:20 | RAD_ITS ---
STUDY: CERVICAL STEROID INJECTION REASON FOR EXAM: Male, 38 years old. CERVICAL EPIDURAL FLUOROSCOPY TIME (if supplied): ( 7 seconds ) minutes/seconds. 3 images were submitted. FINDINGS: Intraoperative fluoroscopic services provided for cervical epidural. RAD/OR-Steroid Inj/Cer Thor/1st L IMPRESSION: Intraoperative fluoroscopic services provided for cervical epidural. Electronically Signed: Edgar Barnes MD at 8:59 EDT ,
[2024-09-11 10:23] VITALS: BP 123/83; BP 127/86; O2SAT 99
[2024-09-11] MEDS: MethylPREDNISolone Acetate 80 MG/ML Vial (10:24)
--- NOTE | 2024-09-11 11:35 | OP.PCM_ITS ---
Report of Operation Date of Procedure: 09/11/24 Description of Surgical Findings:: PREOPERATIVE DIAGNOSES: Cervical radiculopathy, cervical degenerative disc disease, cervical spinal stenosis POSTOPERATIVE DIAGNOSES:Cervical radiculopathy, cervical degenerative disc disease, cervical spinal stenosis PROCEDURE PERFORMED: Cervical epidural steroid injection, interlaminar at C7-T1 under fluoroscopy guidance. ANESTHESIA: Local. BLOOD LOSS: Minimal. COMPLICATIONS: None. DESCRIPTION OF PROCEDURE: History and physical of today was reviewed. Risks and benefits of the procedure were explained. The patient understood and agreed to proceed. Informed consent was obtained. IV inserted per routine protocol. The patient was taken to the operating room and placed in the prone position with a pillow positioned underneath the chest. The neck area was prepped and draped in a sterile fashion using iodine x3. Under fluoroscopy guidance on an AP view, the C7-T1 interlaminar space was identified. The skin and subcutaneous tissue was anesthetized with approximately 3 mL of 1% lidocaine using a 25-gauge regular needle. Under direct visualization on fluoroscopy, on AP view, using a 20-gauge 2-1/2-inch Tuohy needle, the needle was advanced via the skin. The tip of the needle was maneuvered and directed towards the interlaminar space at C7- T1. Loss of resistance technique was carried to air. Loss of resistance technique was encountered. Once encountered, after negative aspiration for blood and CSF, a total of 1 mL of contrast was injected to confirm correct placement of the needle as well as cephalocaudal spread of the contrast. Confirmation was obtained on AP as well as lateral view. After repeated negative aspiration and confirmation, a total of 3 mL of preservative-free normal saline and 80 mg of Depo-Medrol was injected easily. The needle was then removed intact. The patient experienced no sign or symptoms of intrathecal or intravascular injection. The patient experienced no paresthesia. The procedure was completed without any apparent difficulty or any complications. The patient appeared to tolerate it well. ASSESSMENT AND PLAN: This is a 38-year-old male with cervical radiculopathy, cervical degenerative disc disease, cervical spinal stenosis status post cervical epidural steroid injection interlaminar at C7-T1 under fluoroscopic guidance, patient will continue his current medications, patient will follow in approximately 2 weeks for reevaluation.
== END 2024-09-11 10:46 | disposition home or self-care (01) ==
LOC: SDC 08:36 → AC 08:37
PROVIDERS: PCP Registered Nurse; Referring Provider Anesthesiology Pain Medicine; Visit Provider Anesthesiology Pain Medicine
PROC: 3E0S3BZ Introduction of Anesthetic Agent into Epidural Space, Percutaneous Approach (ICD-10-PCS; CPT 62320; principal; 2024-09-11 10:35)
DX: M48.02 Spinal stenosis, cervical region (principal); M50.10 Cervical disc disorder with radiculopathy, unspecified cervical region
CPT/HCPCS: 62320; 64490; 77003; 82962; A4216

== ENCOUNTER 2025-02-05 05:34 | Day surgery (SDC) | payer MEDICAID, SELFPAY ==
[2025-02-05] VITALS (8 sets, daily range): BP systolic 114–135; BP diastolic 72–92; PULSE 57–72; RESP 14–18; TEMP 35.8–36.9; O2SAT 92–99; BMI 48.7
--- NOTE | 2025-02-05 06:25 | PCM.PRE.AN2 ---
ASA Classification* ASA Classification ASA Classification: 3 Assessment & Plan Anesthesia* Anesthesia Assessment Anesthesia Assessment: Discussed sedation and/or anesthesia options, risks, benefits, and alternatives with patient/parents/legal guardian/POA. Questions invited. The patient/parents/legal guardian/POA seems to understand and agrees to proceed with anesthesia plan. Reviewed the physical assessment, medical history, allergy history and patient home medications list prior to surgery/procedure/anesthetic and documented any changes. Performed airway and anesthesia risk assessments. Anesthesia Type Anesthesia Type: MAC History Source History Obtained from:: Patient and Chart Anesthesia Focused Assessment* Temperature: 96.5 F Pulse Rate: 57 Blood Pressure: 114/77 Respiratory Rate: 18 Pulse Ox: 99 Oxygen Delivery Method: Room Air Airway Assessment Mouth opens: 2 cm Mallampati Score: IV Teeth Condition: Missing (Left lower molars are missing. Rest are tight.) and Partial (Upper partials out.) Neck Range of motion (ROM): Limited ROM (Decreased extension secondary to pain.) Focused Labs Anesthesia Preop lab: CBC WBC 5.1 K/mm3 (4.4-11.0) 02/26/22 14:52 02/26/22 RBC 5.34 M/mm3 (4.6-6.2) 02/26/22 14:52 02/26/22 Hgb 15.8 g/dL (13.0-16.5) 02/26/22 14:52 02/26/22 Hct 44.2 % (40-54) 02/26/22 14:52 02/26/22 Plt Count 222 K/mm3 (150-450) 02/26/22 14:52 02/26/22 CHEMISTRY Potassium 3.8 mmol/L (3.5-5.1) 02/26/22 14:52 02/26/22 Sodium 134 mmol/L (136-145) L 02/26/22 14:52 02/26/22 BUN 5 mg/dL (7-18) L 02/26/22 14:52 02/26/22 Creatinine 0.88 mg/dL (0.70-1.30) 02/26/22 14:52 02/26/22 Glucose 274 mg/dL (74-106) H 02/26/22 14:52 02/26/22 POC Glucose 119 mg/dL (74-106) H 09/11/24 09:12 09/11/24 TSH 2.07 uIU/mL (0.358-3.74) 04/25/19 12:14 04/25/19 COAG Pre-Assessment Diagnosis/Proposed Procedure Planned Operative Procedure(s): Left-sided cervical radiofrequency ablation C4-C5-C6 and C7 Anesthesia History Anesthesia History - barometers calibrator: Anesthesia History - barometers calibrator Hx Hospitalization No 05/02/24 13:57 Any Problems With Anesthesia No 05/02/24 13:57 Cholinesterase deficiency No 05/02/24 13:57 You/Your Family Experience No 05/02/24 13:57 fever (hyperthermia) with Relationship Recent Exposure to Contagious No 02/05/25 05:59 Disease Does patient have nerve No 05/02/24 13:57 stimulator Patient instructed to have device shut off --Does patient have Pacemaker No 02/05/25 05:59 or ICD? When Was Last Pacemaker Check QUESTION #4 FULL TEXT: You/Your Family Experience fever (hyperthermia) with Anesthesia Last Oral Intake Last Oral intake: Last Oral Intake NPO since 23:00 02/05/25 05:59 Meds taken in AM with sips of water? Meds patient instructed to take am of surgery PONV PONV - barometers calibrator: PONV - barometers calibrator Female HX of Motion Sickness HX of N/V After Surgery Non-Smoker Duration of Surgery greater than 60 minutes Number of Risk Factors PONV Score Height & Weight Height & Weight: Anesthesia: Height & Weight Height 5 ft 1 in 02/05/25 05:59 Weight: 117 kg 02/05/25 05:59 Body Mass Index (BMI) 48.7 02/05/25 05:59 Respiratory Assessment Respiratory Assessment - barometers calibrator: Respiratory Tract Infection Hx - barometers calibrator Hx Respiratory Tract Infection No 05/02/24 13:57 STOP Sleep Apnea STOP Sleep Apnea - barometers calibrator: STOP Sleep Apnea - barometers calibrator Hx Hypertension No 05/02/24 13:57 Hx Sleep Apnea No 05/02/24 13:57 CPAP BIPAP Do you snore loudly (louder than talking or can be heard Do you often feel tired/ fatigued/ sleepy during daytime? Has anyone observed you stop breathing during sleep? STOP Results QUESTION #5 FULL TEXT : Do you snore loudly (louder than talking or can be heard through closed doors)? 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 Specify any problems Hx of Preganancy in last 3 Months Nurse Filling Out Transfusion & Questions: Date: Time: Patient unable to answer at this time (ie. confused, unrespo /Reproduction History /Reproductive History - barometers calibrator: /Reproductive Hx- barometers calibrator Hx Now Gestational Age (in weeks): EDC: Hx Hx Para Hx Section SAB PFSH Medical History Schizophrenia Bipolar disorder Depression Anxiety Gastric reflux Non-smoker Leg muscle spasm Family history of fatty liver History of Crohn's disease 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 due to type 2 diabetes mellitus Diabetes mellitus type 2 in obese Chronic back pain greater than 3 months duration Body mass index [BMI] 34.0-34.9, adult Home Medications ?Medication ?Instructions ?Recorded ?Last Taken ?Type hydroxyzine pamoate 25 mg capsule 25 mg PO BID 04/13/16 02/04/25 History benztropine 1 mg tablet 1 mg PO DAILY 02/10/22 02/04/25 History escitalopram oxalate 10 mg tablet 10 mg PO DAILY 02/10/22 02/04/25 History (Lexapro) fenofibrate nanocrystallized 145 145 mg PO DAILY 02/10/22 02/04/25 History mg tablet fluticasone propionate 50 1 spray intranasal DAILY 02/10/22 02/04/25 History mcg/actuation nasal spray,suspension glimepiride 2 mg tablet 2 mg PO DAILY 02/10/22 02/04/25 History metformin 1,000 mg tablet 2,000 mg PO BID 02/10/22 02/04/25 History dapagliflozin propanediol 5 mg 5 mg PO DAILY 02/07/24 02/04/25 History tablet (Farxiga) haloperidol 10 mg tablet 10 mg PO DAILY 02/07/24 02/04/25 History gabapentin 400 mg capsule 400 mg PO BID 09/11/24 02/04/25 History Allergy/AdvReac Type Severity Reaction Status Date / Time naproxen Allergy Intermediate Other Verified 02/05/25 05:54 Penicillins Allergy Hives Verified 02/05/25 05:54 prednisone Allergy Hives Verified 02/05/25 05:54 quetiapine fumarate (From Allergy Other Verified 02/05/25 05:54 Seroquel) Surgical History (Updated 02/05/25 @ 06:[address] Jimmie Wen MD) History of radiofrequency ablation (RFA) of nerve of cervical spine History of cholecystectomy Social History Smoking Status: Never smoker Review of Systems (Anesthesia) ROS Narrative System reviewed and no additional complaints, except as documented.
--- NOTE | 2025-02-05 07:36 | RAD_ITS ---
EXAM: CERV SPINE 4 OR 5 VIEWS; O.R. FLUORO FOR C-ARM CLINICAL HISTORY: LT SIDE CERVICAL RADIOFREQUENCY ABLATION C4 C5 C6 C7 TECHNIQUE: Fluoroscopy images performed for cervical radiofrequency ablation from C4 through C7. 8 fluoroscopy images submitted. 6.93 mGy of dose administered. 35.3 seconds of fluoroscopy time FINDINGS: As above RAD/O.R. Fluoro for C-Arm IMPRESSION: As above Reading Location: [id number]
--- NOTE | 2025-02-05 07:36 | RAD_ITS ---
EXAM: CERV SPINE 4 OR 5 VIEWS; O.R. FLUORO FOR C-ARM CLINICAL HISTORY: LT SIDE CERVICAL RADIOFREQUENCY ABLATION C4 C5 C6 C7 TECHNIQUE: Fluoroscopy images performed for cervical radiofrequency ablation from C4 through C7. 8 fluoroscopy images submitted. 6.93 mGy of dose administered. 35.3 seconds of fluoroscopy time FINDINGS: As above RAD/Cerv Spine 4 or 5 Views IMPRESSION: As above Reading Location: [id number]
[2025-02-05] MEDS: Bupivacaine 0.25% 30 ML Vial (07:51)
[2025-02-05] MEDS: MethylPREDNISolone Acetate 40 MG/ML Vial (07:52)
[2025-02-05] MEDS: Lidocaine 1% (30 ml sdv) 30 ML Vial (07:52)
--- NOTE | 2025-02-05 07:57 | OP.PCM_ITS ---
Operative Report (Standard) Operative Information Date of Procedure: 02/05/25 Pre-Operative Diagnosis: 1 Post-Operative Diagnosis: 1 Surgery/Procedure Performed: 1 thermostatic controls supervisor: No Type of Anesthesia: Local MAC RN Documented Start/Stop Times: Operation Date: 02/05/25 07:30 Case Time Into Pre-Op 02/05/25 05:45 Out of Pre-Op 02/05/25 07:29 Anesthesia Start 02/05/25 07:30 Into Room 02/05/25 07:30 Procedure Start 02/05/25 07:45 Procedure End 02/05/25 07:54 Procedure Start Time: 07:58 Procedure Stop Time: 07:58 Select all DRAINS/GRAFTS/IMPLANTS that apply: None Estimated Blood Loss: 1 Specimen collected: No Description of surgery: PREOPERATIVE DIAGNOSIS: Cervical spondylosis, cervical degenerative disc disease, cervical facet arthropathy POSTOPERATIVE DIAGNOSIS: Cervical spondylosis, cervical degenerative disc disease, cervical facet arthropathy PROCEDURE PERFORMED: Left-sided radiofrequency ablation of the medial branch at C4, C5, C6, and C7. ANESTHESIA: MAC. BLOOD LOSS: Minimal. COMPLICATIONS: None. DESCRIPTION OF PROCEDURE: History and physical of today was reviewed. Risks and benefits of the procedure were explained. The patient understood and agreed to proceed. Informed consent was obtained. IV inserted per routine protocol. The patient was taken to the operating room and placed in the prone position with a pillow positioned underneath the chest. The neck area was prepped and draped in a sterile fashion using iodine x3. Under fluoroscopy guidance on an AP view, the C4 through C7 vertebral bodies were visualized. The skin and subcutaneous tissue was anesthetized with approximately 10 mL of 1% lidocaine using a 25-gauge regular needle. Under direct visualization on fluoroscopy on a lateral view, using a 21-gauge 10-cm with a 10-mm curved active-tip radiofrequency ablation needle, the needle was passed through the skin. The tip of the needle was maneuvered and directed towards the epiphyseal junction of each corresponding vertebra, starting on the left C4, ending on the left C7, passing through the C5 and C6. Once the tip of the needle was at the vicinity of the medial branch and at the middle of the trapezoid on the lateral view, the stylette of each needle was then removed. After negative aspiration of blood or CSF and confirmation on AP, oblique as well as lateral view, radiofrequency ablation probe was then inserted at each level. Impedance was then recorded at C4 to be 339 ohm, at C5 to be 257 ohm, at C6 to be 260 ohm, and at C7 to be 272 ohm. Motor-evoked potential was then initiated to 1.5 volt without any motor response to each corresponding level or the left arm. The probe was then removed intact and a total of 4 mL of preservative-free 1% lidocaine was injected in divided doses between those four levels after negative aspiration of blood or CSF. After repeated confirmation, the radiofrequency ablation probe was then inserted and after repeated confirmation on AP, oblique as well as lateral view, radiofrequency ablation was then initiated to approximately 80 degree Celsius for 60 second at each level. Once concluded, the probe was then removed intact. A total of 4 mL of preservative-free 0.25% Marcaine with 40 mg of Depo-Medrol was injected in divided doses between those four levels. The needles were then removed intact. The patient experienced no sign or symptoms of intrathecal or intravascular injection. The patient experienced no paresthesia. The procedure was completed without any apparent difficulty or any complications. The patient appeared to tolerate it well. Sensory as well as motor exam was unchanged from prior to the procedure. ASSESSMENT AND PLAN: This is a 39-year-old male with cervical spondylosis, cervical degenerative disc disease, cervical facet arthropathy status post left-sided cervical radiofrequency ablation of the medial branch C4-C7, patient will continue his current medications, patient will follow up in approximately 2 weeks for reevaluation. Surgical Findings: 0 Complications Complications: No Admit VTE Documentation VTE Present on Admission: No VTE Pharm Prophylaxis ordered?: No
--- NOTE | 2025-02-05 08:04 | PCM.POST.ANE ---
Anesthesia: Postop Eval I Current Vital Signs Temperature: 97 F Pulse Rate: 72 Blood Pressure: 122/72 Respiratory Rate: 14 Pulse Ox: 93 Oxygen Delivery Method: Room Air Assessment Airway patent: Yes Spontaneous unlabored respirations: Yes Mental status: Awake nausea: No Vomiting: No Anesthesia Complication: No Fluid Hydration Crystalloid volume administer (ml): 250 Total IV fluid infused: 250 Progress Note Anesthesia document: Postop Eval 1 completed: Yes
[2025-02-05 09:23] LABS: Bedside Glucose 129 mg/dL (74-106)
--- NOTE | 2025-02-05 10:02 | POSTOPAN2_ITS ---
Anesthesia Postop Eval I Sum Postop Eval Completion status Anesthesia document: Postop Eval 1 completed: Yes Anesthesia Postop Eval I Summary Anesthesia Postop Eval I Summary: Anesthesia Postop Eval I: Assessment Summary Airway patent Yes 02/05/25 08:04 [email or web address] Spontaneous unlabored Yes 02/05/25 08:04 [email or web address] respirations Mental status Awake 02/05/25 08:04 [email or web address] nausea No 02/05/25 08:04 [email or web address] Vomiting No 02/05/25 08:04 [email or web address] Anesthesia Postop Eval I: Fluid Summary Crystalloid volume administer 250 02/05/25 08:04 [email or web address] (ml) Colloids volume administered ( ml) Blood Product volume administered (ml) Total IV fluid infused 250 02/05/25 08:04 [email or web address] Anesthesia Postop Eval I: Summary Notes Anesthesia Complication No 02/05/25 08:04 [email or web address] Anesthesia Complication Comment: Post-operative progress note Anesthesia: Postop Eval II Evaluation Mental status: Awake Pain Level: 3 nausea: No Vomiting: No
--- NOTE | 2025-02-05 10:02 | PCM.POSTANE2 ---
Anesthesia Postop Eval I Sum Postop Eval Completion status Anesthesia document: Postop Eval 1 completed: Yes Anesthesia Postop Eval I Summary Anesthesia Postop Eval I Summary: Anesthesia Postop Eval I: Assessment Summary Airway patent Yes 02/05/25 08:04 BUCKLE STRAP [email or web address] Spontaneous unlabored Yes 02/05/25 08:04 BUCKLE STRAP [email or web address] respirations Mental status Awake 02/05/25 08:04 BUCKLE STRAP [email or web address] nausea No 02/05/25 08:04 BUCKLE STRAP [email or web address] Vomiting No 02/05/25 08:04 BUCKLE STRAP [email or web address] Anesthesia Postop Eval I: Fluid Summary Crystalloid volume administer 250 02/05/25 08:04 BUCKLE STRAP [email or web address] (ml) Colloids volume administered ( ml) Blood Product volume administered (ml) Total IV fluid infused 250 02/05/25 08:04 BUCKLE STRAP [email or web address] Anesthesia Postop Eval I: Summary Notes Anesthesia Complication No 02/05/25 08:04 BUCKLE STRAP [email or web address] Anesthesia Complication Comment: Post-operative progress note Anesthesia: Postop Eval II Evaluation Mental status: Awake Pain Level: 3 nausea: No Vomiting: No
== END 2025-02-05 08:42 | disposition home or self-care (01) ==
LOC: SDC 05:35 → AC 05:36
PROVIDERS: PCP Registered Nurse; Referring Provider Anesthesiology Pain Medicine; Visit Provider Anesthesiology Pain Medicine
PROC: (CPT 64633; principal; 2025-02-05 07:25)
DX: M47.812 Spondylosis without myelopathy or radiculopathy, cervical region (principal); M50.30 Other cervical disc degeneration, unspecified cervical region
CPT/HCPCS: 64633; 64634 ×3; 72050; 76000; 82962; A4216

== ENCOUNTER → 2025-05-23 | Outpatient (CLI) | payer MEDICAID, SELFPAY ==
--- NOTE | 2025-05-23 12:17 | CT_ITS ---
PROCEDURE: LIMITED CHEST CT CARDIAC ONLY 05/23/2025 REASON FOR EXAM: CP TECHNIQUE: LIMITED CHEST CT CARDIAC ONLY CONTRAST: Isovue 370 VOLUME: 77 mL intravenous One or more dose reduction techniques were used (e.g., Automated exposure control, adjustment of the mA and/or kV according to patient size, use of iterative reconstruction technique). RADIATION DOSE SUMMARY: DLP: 2016.94 mGycm COMPARISON: None. CT/Limited Chest CT Cardiac Only IMPRESSION: Diffuse fatty infiltration of the liver is noted. Limited imaging of the lungs demonstrates no acute process. No pleural effusion or pneumothorax is seen in visualized areas. No adenopathy is noted. The visualized upper abdomen demonstrates no other significant abnormality. Reading Location: [place] [id number]
--- NOTE | 2025-05-23 12:17 | CT_ITS ---
PROCEDURE: LIMITED CHEST CT CARDIAC ONLY 05/23/2025 REASON FOR EXAM: CP TECHNIQUE: LIMITED CHEST CT CARDIAC ONLY CONTRAST: Isovue 370 VOLUME: 77 mL intravenous One or more dose reduction techniques were used (e.g., Automated exposure control, adjustment of the mA and/or kV according to patient size, use of iterative reconstruction technique). RADIATION DOSE SUMMARY: DLP: 2016.94 mGycm COMPARISON: None. CT/Limited Chest CT Cardiac Only IMPRESSION: Diffuse fatty infiltration of the liver is noted. Limited imaging of the lungs demonstrates no acute process. No pleural effusion or pneumothorax is seen in visualized areas. No adenopathy is noted. The visualized upper abdomen demonstrates no other significant abnormality. Reading Location: [place] [id number]
[2025-05-23 12:39] VITALS: BP 120/79; PULSE 66; RESP 14; TEMP 35.9; O2SAT 97; BMI 35.1
[2025-05-23 12:55] VITALS: BP 120/79; PULSE 64
[2025-05-23] MEDS: Nitroglycerin SL (ED/IMG/CATH) 0.4 MG TABLET SL (12:55)
[2025-05-23 13:02] VITALS: BP 123/74; PULSE 74; RESP 16; O2SAT 94
[2025-05-23 13:07] LABS: CREATININE FINGERSTICK < 1.0 mg/dL (0.70-1.30); EGFR FINGERSTICK > 60.0000 mL/min (>60)
--- NOTE | 2025-05-23 17:25 | CCTA.WCONT ---
CCTA w/Cont Coronary Arteries Date of Study:: 05/23/25 Chest pain Coronary Calcium Scoring: High-resolution Computed Tomographic imaging of the chest was performed on [06-15], with particular attention paid to the coronary arteries. Intravenous contrast agent was administered per protocol and images reconstructed and displayed. LEFT MAIN CORONARY ARTERY: Arises from the left coronary cusp with no significant atherosclerotic plaquing noted [] LEFT ANTERIOR DESCENDING CORONARY ARTERY: Arises from the left main coronary artery with scattered proximal and mid atherosclerotic plaquing but with no obvious stenosis noted in the coronary artery distribution which continues to the apex of the ventricle 1 diagonal branch is noted. [] LEFT CIRCUMFLEX CORONARY ARTERY: Scattered nonobstructive calcification noted with good blood flow noted throughout. The vessel continues in the AV groove branch with no high-grade stenosis. [] RIGHT CORONARY ARTERY: Dominant right coronary artery with no significant atherosclerotic plaquing. Scattered calcium noted. Vessel continues and courses and bifurcates a posterior descending artery and a posterolateral vessel. Imitations look nice thanks. THORACIC AORTA: [] PULMONARY ARTERY: [] LEFT ATRIUM/APPENDAGE: [] MITRAL VALVE: [] AORTIC VALVE: [] LEFT VENTRICLE: [] CORONARY CALCIUM SCORE: [] Calcium Scoring Interpretation: Different methods to categorize the overall amount of coronary plaque. Overall amount CAC SIS Visual of coronary plaque P1 Mild -100 <2 1-2 vessels with mild amount of plaque P2 Moderate 101-300 3-4 1-2 vessels with moderate amount, 3 vessels with mild amount of plaque P3 Severe 301-999 5-7 3 vessels with moderate amount, 1 vessel with severe amount of plaque P4 Extensive >1000 >8 2-3 vessels with severe amount of plaque Conclusion: No significant obstructive coronary disease noted. Scattered plaques noted
== END | disposition home or self-care (01) ==
LOC: CT 12:14
PROVIDERS: PCP Registered Nurse; Referring Provider Nurse Practitioner Family; Visit Provider Nurse Practitioner Family
DX: R07.9 Chest pain, unspecified (principal)
CPT/HCPCS: 75574; 76380; Q9967

== ENCOUNTER 2025-08-06 07:45 | Day surgery (SDC) | payer MEDICAID, SELFPAY ==
--- OUTSIDE RECORDS SUMMARY | 2025-08-06 08:10 | XMS RPT_ITS | CCD ---
Author Organization [facility] Care Team Providers Care Dairy Frozen Manager Name Role Phone Andrea Lazaro Chi Primary Care Unavailable Ivanauskas, Saulius Admitting Unavailable Ivanauskas Saulius Attending Unavailable Long Gonzalez Primary Care Provider [phone] Long Gonzalez DO Primary Care Provider [phone] Long Gonzalez DO Primary Care Provider [phone] MADHAV STEWART-RENETTA, ADRIÁN Primary Care Physician Long Gonzalez DO Primary Care Provider ZEFERINO PICK AND SHOVEL WORKER-BUTTON TACKER, SYEDA Primary Care Physician [phone] ADOLFO PICK AND SHOVEL WORKER-BUTTON TACKER, WANDA A Primary Care Physi sophy Adolfo PICK AND SHOVEL WORKER - BUTTON TACKER, Wanda Primary Care Provi markel ADOLFO PICK AND SHOVEL WORKER-BUTTON TACKER, WANDA A Attending Un available ADOLFO PICK AND SHOVEL WORKER-BUTTON TACKER, WANDA A Primary Care Un available ADOLFO PICK AND SHOVEL WORKER-BUTTON TACKER, WANDA A Attending Un available ADOLFO PICK AND SHOVEL WORKER-BUTTON TACKER, WANDA A Primary Care Un available ADOLFO PICK AND SHOVEL WORKER-BUTTON TACKER, WANDA A Attending Un available ADOLFO PICK AND SHOVEL WORKER-BUTTON TACKER, WANDA A Primary Care Un available ADOLFO PICK AND SHOVEL WORKER-BUTTON TACKER, WANDA A Attending Un available ADOLFO PICK AND SHOVEL WORKER-BUTTON TACKER, WANDA A Primary Care Un available ADOLFO PICK AND SHOVEL WORKER-BUTTON TACKER, WANDA A Attending Un available ADOLFO PICK AND SHOVEL WORKER-BUTTON TACKER, WANDA A Primary Care Un available REGIS REAGAN MD Attending Unavailable ADOLFO PICK AND SHOVEL WORKER-BUTTON TACKER, WANDA A Primary Care Un available JIGNA BARBOSA CNP Attending Unavailable ADOLFO PICK AND SHOVEL WORKER-BUTTON TACKER, WANDA A Primary Care Un available FISH PICK AND SHOVEL WORKER-BUTTON TACKER, FABIAN Attending Unavailab le ADOLFO PICK AND SHOVEL WORKER-BUTTON TACKER, WANDA A Primary Care Un available GILMA HYLTON DO Attending Unavailable ADOLFO PICK AND SHOVEL WORKER-BUTTON TACKER, WANDA A Primary Care Un available KAREY TOSCANO, DR LUIS Mejia Attending Unavailable ADOLFO PICK AND SHOVEL WORKER-BUTTON TACKER, WANDA A Primary Care Un available DEMETRIO MCLAUGHLIN MD Attending Unavailable ADOLFO PICK AND SHOVEL WORKER-BUTTON TACKER, WANDA A Primary Care Un available ADOLFO PICK AND SHOVEL WORKER-BUTTON TACKER, WANDA A Primary Care Un available CARMEN DO, PRASHANT Attending Unavailable FISH PICK AND SHOVEL WORKER-BUTTON TACKER, FABIAN Attending Unavailab le ADOLFO PICK AND SHOVEL WORKER-BUTTON TACKER, WANDA A Primary Care Un available ADOLFO, WANDA Primary Care Unavailable KY HURTADO Attending Unavailable ADOLFO, WANDA Primary Care Unavailable KY HURTADO Referring Unavailable TRISTON HERRERA Referring Unavailable ADOLFO, WANDA Primary Care Unavailable TRISTON HERRERA Referring Unavailable ADOLFO, WANDA Primary Care Unavailable TRISTON HERRERA Attending Unavailable ADOLFO, WANDA Primary Care Unavailable Adolfo MATH TEACHER-C, Wanda Primary Care Provider Dr. Marc Aquino MD Attending Provider [phone] Dr. Marc Aquino MD Referring Provider [phone] Fish MATH TEACHER-C, Fabian Attending Provider [phone] Fish MATH TEACHER-C, Fabian Referring Provider Fish MATH TEACHER-C, Fabian Other Provider [phone] Farnaz Olivares MD, Dr. Aragon Attending Provider [phone] Marc Aquino Attending Unavailable Marc Aquino Referring Unavailable Adolfo MATH TEACHER, Wanda Primary Care Unavailabl e Fish MATH TEACHER, Fabian Consulting Unavailable Fish MATH TEACHER, Fabian Referring Unavailable Adolfo MATH TEACHER, Wanda Primary Care Unavailabl e Mahesh Olivares Attending Unavailable Fish MATH TEACHER Fabian Attending Unavailable Fish MATH TEACHER, Fabian Referring Unavailable Adolfo MATH TEACHER, Wanda Primary Care Unavailabl e Marc Aquino Referring Unavailable Marc Aquino Attending Unavailable Adolfo MATH TEACHER, Wanda Primary Care Unavailabl gina Aquino, Marc Referring Unavailable Adolfo MATH TEACHER, Wanda Primary Care Unavailabl e Miles, Marc Attending Unavailable Miles, Marc Attending Unavailable Miles, Marc Referring Unavailable Adolfo MATH TEACHER, Wanda Primary Care Unavailmichael IVERSON MD, SHIREEN Mejia Attending Unavailable ADOLFO PICK AND SHOVEL WORKER-BUTTON TACKER, WANDA A Primary Care Un available ADOLFO PICK AND SHOVEL WORKER-BUTTON TACKER, WANDA A Attending Un available ADOLFO PICK AND SHOVEL WORKER-BUTTON TACKER, WANDA A Primary Care Un available ADOLFO PICK AND SHOVEL WORKER-BUTTON TACKER, WANDA A Attending Un available ADOLFO PICK AND SHOVEL WORKER-BUTTON TACKER, WANDA A Primary Care Un available JUSTO HAUSER Attending Unavailable ADOLFO PICK AND SHOVEL WORKER-BUTTON TACKER, WANDA A Primary Care Un available ADOLFO PICK AND SHOVEL WORKER-BUTTON TACKER, WANDA A Attending Un available ADOLFO PICK AND SHOVEL WORKER-BUTTON TACKER, WANDA A Primary Care Un available ADOLFO PICK AND SHOVEL WORKER-BUTTON TACKER, WANDA A Primary Care Un available ADOLFO PICK AND SHOVEL WORKER-BUTTON TACKER, WANDA A Attending Un available ADOLFO PICK AND SHOVEL WORKER-BUTTON TACKER, WANDA A Attending Un available ADOLFO PICK AND SHOVEL WORKER-BUTTON TACKER, WANDA A Primary Care Un available ADOLFO PICK AND SHOVEL WORKER-BUTTON TACKER, WANDA A Primary Care Un available SHIREEN LAGUERRE DO Attending Unavailable ARNOLDO SPARKS, DEMETRIO Jj Attending Unavailable ADOLFO PICK AND SHOVEL WORKER-BUTTON TACKER, WANDA A Primary Care Un available KATINA BANERJEE MD Attending Unavail able ADOLFO PICK AND SHOVEL WORKER-BUTTON TACKER, WANDA A Primary Care Un available ADOLFO PICK AND SHOVEL WORKER-BUTTON TACKER, WANDA A Attending Un available ADOLFO PICK AND SHOVEL WORKER-BUTTON TACKER, WANDA A Primary Care Un available Allergies Allergy Classification Reported Allergen(s) Allergy Type Date of Onset Reaction(s) Facility Corticosteroids (1 source) predniSONE Drug Allergy 7 Hives [facility] Penicillins (antibiotic) (1 source) Penicillins Drug Allergy 0 [facility] QUEtiapine (1 source) QUEtiapine Drug Allergy 7 Other (See Comments) [facility] risperiDONE (1 source) risperiDONE Drug Allergy 2 Other (See Comments) [facility] (20 sources) predniSONE; Translations: [predniSONE] Drug Allergy 7 Hives, Unknown [facility] (20 sources) QUEtiapine; Translations: [SEROquel] Drug Allergy [facility] (8 sources) Penicillins Propensity to adverse reactions to drug 0 [facility] (18 sources) QUEtiapine Drug Allergy 7 Other (See Comments), Other [facility] Work Phone: (8 sources) risperiDONE Drug Allergy 2 Other (See Comments) [facility] Work [facility]: (4 sources) Adhesive Tape Propensity to adverse reactions to drug 1 [facility] (20 sources) Naproxen; Translations: [naproxen] Drug Allergy 1 Other [facility] (5 sources) Penicillins Allergy to substance 3 Hives [facility] (6 sources) QUEtiapine; Translations: [quetiapine fumarate] Drug Allergy 3 Other [facility] (19 sources) Penicillin; Translations: [penicillin] Drug Allergy I got sick [facility] (14 sources) Penicillins Drug Allergy 0 Unknown [facility] (1 source) Naproxen Drug Allergy 5 [facility] (1 source) Penicillins Drug allergy (disorder) 5 [facility] Medications Current Medications Medication Drug Class(es) Dates Sig (Normalized) Sig (Original) acetaminophen 325 mg / HYDROcodone bitartrate 5 mg oral tablet (4 sources) Opioid Agonist Start: 09-02-2021 End: 09-07-2021 take 1-2 tablets by mouth every four hours as needed for pain HYDROcodone-acetami nophen (NORCO) 5-325 MG per tablet Indications: Calculus of gallbladder without cholecystitis without obstruction Take 1-2 tablets by mouth every 4 hours as needed for Pain for up to 5 days. 20 tablet 0 09/02/2021 09/07/2021 Active Start: 01-12-2015 End: 04-21-2019 take 1 tablet by mouth every six hours as needed for pain [place] 325- 5 mg oral tablet Dose = 1 tab(s), Oral, q6h, PRN as needed for pain, # 12 tab(s), 0 Refill(s), Arthralgia of shoulder Start Date: 04/18/19 Stop Date: 04/21/19 Status: Ordered acetaminophen 325 mg / oxyCODONE hydrochloride 5 mg oral tablet (1 source) Opioid Agonist Start: 09-11-2021 End: 09-16-2021 take 1 tablet by mouth every six hours as needed for pain oxyCODONE-acetaminophen (PERCOCET) 5-325 MG per tablet Indications: Biliary colic Take 1 tablet by mouth every 6 hours as needed for Pain for up to 5 days. 10 tablet 0 09/11/2021 09/16/2021 Active ALPRAZolam 0.25 mg disintegrating oral tablet (1 source) Benzodiazepine Start: 09-11-2021 ALPRAZolam (NIRAVAM) dissolvable tablet 0.25 mg ARIPiprazole 20 mg oral tablet (2 sources) Atypical Antipsychotic Start: 03-10-2013 ARIPiprazole (ABILIFY) 20 MG tablet Take 20 mg by mouth 0 03/10/2013 Active Start: 06-20-2010 take 10 mg by mouth once daily Abilify 10 mg, PO, Daily, 0 Refill(s), current med (Hx) Start Date: 06/20/10 Status: Ordered atorvastatin 20 mg oral tablet (20 sources) HMG-CoA Reductase Inhibitor Start: 06-18-2025 atorvastatin 20 mg oral tablet Dose : 20 mg = 1 tab(s), Oral, qDay, # 90 tab(s), 3 Refill(s), Pharmacy: [facility] [place], 180, cm, 06/18/25 13:14:00 EDT, Height, kg, 06/18/25 13:14:00 EDT, Dosing Weight Start Date: 06/18/25 Status: Ordered Medication Dispense Status: Completed Quantity: 90.0 Unit: tab(s) Total Allowed Fills: 4 Fills Dispensed: 0 Start: 07-14-2023 atorvastatin 2 0 mg oral tablet Dose : 20 mg = 1 tab(s), Oral, qDay, # 90 tab(s), 3 Refill(s), Pharmacy: [facility], 179.6, cm, 04/13/24 10:38:00 EDT, Height, kg, 04/13/24 10:38:00 EDT, Dosing Weight Start Date: 06/29/24 Status: Ordered Quantity: 90.0 Unit: tab(s) Repeat number: 4 Start: 02-24-2023 End: 08-23-2023 atorvastatin 10 mg oral tabl et Dose : 10 mg = 1 tab(s), Oral, qDay, # 90 tab(s), 1 Refill(s), Pharmacy: [facility] [place], Mixed hyperlipidemia, 180.3, cm, 02/12/23 8:53:00 EDT, Height Start Date: 02/24/23 Stop Date: 08/23/23 Status: Ordered benzonatate 100 mg oral capsule (4 sources) Non-narcotic Antitussive Start: 10-27-2023 take 1 capsule by mouth three times daily as needed for cough benzonatate (Tessalon) 100 MG capsule Take 100 mg by mouth 3 times daily as needed for cough. 10/27/2023 Active benztropine mesylate 1 mg oral tablet (20 sources) Anticholinergic, Antihistamine Start: 03-31-2024 benztropine (Cogentin) 2 MG tablet 03/31/2024 Active Start: 09-17-2021 benztropine (C OGENTIN) 2 MG tablet Start: 01-12-2015 benztropine 1 mg oral tablet Dose : 1 mg = 1 tab(s), Oral, qDay, # 30 tab(s), 0 Refill(s), Pharmacy: [facility], 179.6, cm, 04/13/24 10:38:00 EDT, Height, kg, 04/13/24 10:38:00 EDT, Dosing Weight Start Date: 06/29/24 Status: Ordered Medication Dispense Status: Completed Quantity: 30.0 Unit: tab(s) Total Allowed Fills: 1 Fills Dispensed: 0 blood glucose monitor kit and supplies (4 sources) Start: 07-16-2021 blood glucose monitor kit and supplies 1 kit by Other route daily Please supply whichever Home blood glucose monitor is covered by patients insurance. 1 kit 1 07/16/2021 Active Blood Glucose Monitoring Suppl (ONE TOUCH ULTRA 2) w/Device KIT (2 sources) Start: 08-11-2021 Blood Glucose Monitoring Suppl (ONE TOUCH ULTRA 2) w/Device KIT use as directed 0 08/11/2021 Active calcium chloride 0.0014 meq/ml / potassium chloride 0.004 meq/ml / sodium chloride 0.103 meq/ml / sodium lactate 0.028 meq/ml injectable solution (1 source) Start: 09-11-2021 lactated ringers infusion cholecalciferol 0.125 mg oral capsule (4 sources) Vitamin D Start: 12-27-2023 take 1 capsule by mouth once daily cholecalciferol (Vitamin D-3) 125 MCG (5000 UT) capsule Take 125 mcg by mouth daily. 12/27/2023 Active clindamycin 300 mg oral capsule (6 sources) Lincosamide Antibacterial Start: 03-20-2025 End: 03-27-2025 clindamycin 300 mg oral capsule Dose : 300 mg = 1 cap(s), Oral, q8hr, X 7 day(s), # 21 cap(s), 0 Refill(s), 03/27/25 4:26:00 PM EDT Start Date: 03/20/25 Stop Date: 03/27/25 Status: Ordered Quantity: 21.0 Unit: cap(s) Repeat number: 1 Start: 02-27-2024 End: 03-08-2024 take 1 capsule by mouth three times daily clindamycin (Cleocin) 300 MG capsule take 1 capsule by mouth three times a day for 10 days (TAKE WITH A PROBIOTIC) 02/27/2024 Active Continuous Blood Gluc Ged Instructor (FREESTYLE GOGO 2 READER) WANG (8 sources) Start: 01-30-2021 Continuous Blo od Gluc Ged Instructor (FREESTYLE GOGO 2 READER) WANG Test daily 1 each 1 01/30/2021 Active Continuous Blood Gluc Sensor (FREESTYLE GOGO 2 SENSOR) MISC (8 sources) Start: 01-30-2021 Continuous Blo od Gluc Sensor (FREESTYLE GOGO 2 SENSOR) MISC Test daily 1 each 5 01/30/2021 Active Continuous Glucose Sensor (FreeStyle Gogo 2 Sensor) misc (4 sources) Start: 03-22-2024 Continuous Glu cose Sensor (FreeStyle Gogo 2 Sensor) [facility] apply 1 SENSOR TO BACK OF ARM ONCE EVERY 14 DAYS TO MONITOR GLUCOSE 03/22/2024 Active cyclobenzaprine hydrochloride 10 mg oral tablet (1 source) Muscle Relaxant Start: 01-12-2015 Flexeril 10 mg oral tablet Dose : 10 mg = 1 tab(s), Oral, TID, # 20 tab(s), 0 Refill(s) Start Date: 01/12/15 Status: Ordered dapagliflozin 10 mg oral tablet (20 sources) Sodium-Glucose Cotransporter 2 Inhibitor Start: 12-27-2023 End: 10-29-2025 Farxiga 10 mg oral tablet Dose : 10 mg = 1 tab(s), Oral, qDay, # 90 tab(s), 3 Refill(s), Pharmacy: [facility] [place], 178, cm, 11/01/24 14:02:00 EST, Height, kg, 11/01/24 14:02:00 EST, Dosing Weight Start Date: 11/03/24 Stop Date: 10/29/25 Status: Ordered Medication Dispense Status: Completed Quantity: 90.0 Unit: tab(s) Total Allowed Fills: 4 Fills Dispensed: 0 Start: 08-18-2023 Farxiga 10 mg oral tablet Dose : 10 mg = 1 tab(s), Oral, qDay, # 30 tab(s), 5 Refill(s), Pharmacy: [facility] [place], 180.3, cm, 08/13/23 9:00:00 EDT, Height, kg, 08/13/23 9:00:00 EDT, Dosing Weight Start Date: 08/18/23 Status: Ordered Start: 08-13-2022 End: 08-08-2023 Farxiga 10 mg oral tablet Do se : 10 mg = 1 tab(s), Oral, qDay, # 30 tab(s), 2 Refill(s), Pharmacy: [facility] [place], 180.3, cm, 02/12/23 8:53:00 EDT, Height, kg, 02/12/23 8:53:00 EDT, Dosing Weight Start Date: 06/23/23 Status: Ordered Start: 05-14-2022 End: 12-21-2024 take 1 tablet by mouth once daily Dapagliflozin Propanediol (Dapagliflozin Propanediol 5 Mg Tablet) 5 mg tablet Active 5 mg PO DAILY February 07, 2024 12:00am dicyclomine hydrochloride 10 mg oral capsule (3 sources) Anticholinergic Start: 03-06-2014 dicyclomine (B ENTYL) 10 MG capsule Take 10 mg by mouth 0 03/06/2014 Active 1 ml diphenhydrAMINE hydrochloride 50 mg/ml cartridge (1 source) Histamine-1 Receptor Antagonist Start: 09-11-2021 End: 09-11-2021 diphenhydrAMINE (BENADRYL) injection 12.5 mg DME MISCellaneous (20 sources) Start: 03-19-2025 DME MISCellane ous See Instructions, Libre3+ Sensors #2 sensors. Apply sensor to arm once every 14 days to monitor glucose, # 2 EA, 11 Refill(s), Pharmacy: [facility] [place], 178, cm, 03/02/25 11:36:00 EDT, Height, 117.3, kg, 03/02/25 11:36:00 EDT, Dosing Weight Start Date: 03/19/25 Status: Ordered Medication Dispense Status: Completed Quantity: 2.0 Unit: EA Total Allowed Fills: 12 Fills Dispensed: 0 Start: 03-19-2025 DME MISCellane ous See Instructions, Libre3+ Sensors #2 sensors. Apply sensor to arm once every 14 days to monitor glucose, # 2 EA, 11 Refill(s), Pharmacy: [facility] [place], 178, cm, 03/02/25 11:36:00 EDT, Height, 117.3, kg, 03/02/25 11:36:00 EDT, Dosing Weight Start Date: 03/19/25 Status: Ordered Quantity: 2.0 Unit: EA Repeat number: 12 Start: 04-12-2024 DME MISCellane ous See Instructions, Libre3 [place] Use reader to scan sensor to monitor sugars, # 1 EA, 0 Refill(s), Pharmacy: [facility] #[id number], 177.8, cm, 04/05/24 14:15:00 EDT, Height, 114.1, kg, 04/05/24 14:16:00 EDT, Dosing Weight Start Date: 04/12/24 Status: Ordered Medication Dispense Status: Completed Quantity: 1.0 Unit: EA Total Allowed Fills: 1 Fills Dispensed: 0 Start: 04-12-2024 DME MISCellane ous See Instructions, Libre3 [place] Use reader to scan sensor to monitor sugars, # 1 EA, 0 Refill(s), Pharmacy: [facility] #[id number], 177.8, cm, 04/05/24 14:15:00 EDT, Height, 114.1, kg, 04/05/24 14:16:00 EDT, Dosing Weight Start Date: 04/12/24 Status: Ordered Quantity: 1.0 Unit: EA Repeat number: 1 Start: 04-12-2024 DME MISCellane ous See Instructions, Libre3 [place] Use reader to scan sensor to monitor sugars, # 1 EA, 0 Refill(s), Pharmacy: [facility] #[id number], 177.8, cm, 04/05/24 14:15:00 EDT, Height, 114.1, kg, 04/05/24 14:16:00 EDT, Dosing Weight Start Date: 04/12/24 Status: Ordered Start: 04-12-2024 DME MISCellane ous See Instructions, Libre3 Sensors #2 sensors. Apply sensor to arm once every 14 days to monitor glucose, # 2 EA, 11 Refill(s), Pharmacy: [facility] #[id number], 177.8, cm, 04/05/24 14:15:00 EDT, Height, 114.1, kg, 04/05/24 14:16:00 EDT, Dosing Weight Start Date: 04/12/24 Status: Ordered Start: 01-07-2024 DME MISCellane ous See Instructions, Libre2 Sensors. Apply sensor to back of arm once every 14 days to monitor glucose., # 2 EA, 11 Refill(s), Pharmacy: [facility] #[id number], 177.8, cm, 12/27/23 11:06:00 EST, Height, 115.4, kg, 12/27/23 11:06:00 EST, Dosing Weight Start Date: 01/07/24 Status: Ordered Start: 02-12-2023 DME MISCellane ous See Instructions, Libre2 [place]. Use reader to scan sensor once every 8 hours., # 1 EA, 0 Refill(s), Pharmacy: [facility], 180.3, cm, 02/12/23 8:53:00 EDT, Height, 118.7 Start Date: 02/12/23 Status: Ordered Start: 02-12-2023 DME MISCellane ous See Instructions, Libre2 Sensors. Apply sensor to back of arm once every 14 days to monitor glucose., # 2 EA, 11 Refill(s), Pharmacy: [facility] [place], 180.3, cm, 02/12/23 8:53:00 EDT, Height, 118.7 Start Date: 02/12/23 Status: Ordered 0.5 ml dulaglutide 3 mg/ml auto-injector (4 sources) GLP-1 Receptor Agonist Start: 07-11-2025 inject 1 dose by subcutaneous injection every week Trulicity Pen 1.5 mg/0.5 mL subcutaneous solution Dose : 1.5 mg =, Subcutaneous, qWeek, rotate injection sites, # 2 mL, 3 Refill(s), Pharmacy: [facility] [place], 180, cm, 06/18/25 13:14:00 EDT, Height, kg, 07/11/25 10:05:00 EDT, Dosing Weight Start Date: 07/11/25 Status: Ordered Medication Dispense Status: Completed Quantity: 2.0 Unit: mL Total Allowed Fills: 4 Fills Dispensed: 0 Start: 06-13-2025 inject 1 dose by sub cutaneous injection every week Trulicity Pen 0.75 mg/0.5 mL subcutaneous solution Dose : 0.75 mg =, Subcutaneous, qWeek, rotate injection sites, # 2 mL, 1 Refill(s), Pharmacy: [facility] [place], 180, cm, 05/10/25 11:54:00 EDT, Height, kg, 05/10/25 11:54:00 EDT, Dosing Weight Start Date: 06/13/25 Status: Ordered Quantity: 2.0 Unit: mL Repeat number: 2 escitalopram 10 mg oral tablet (20 sources) Serotonin Reuptake Inhibitor Start: 09-17-2021 End: 02-16-2026 Lexapro 10 mg oral tablet Dose : 10 mg = 1 tab(s), Oral, qDay, # 90 tab(s), 3 Refill(s), Pharmacy: [facility] [place], 178, cm, 02/21/25 15:12:00 EDT, Height, kg, 02/21/25 15:12:00 EDT, Dosing Weight Start Date: 02/21/25 Stop Date: 02/16/26 Status: Ordered Medication Dispense Status: Completed Quantity: 90.0 Unit: tab(s) Total Allowed Fills: 4 Fills Dispensed: 0 Start: 06-20-2010 take 40 mg by mouth once daily Lexapro 40 mg, PO, Daily, 0 Refill(s), current med (Hx) Start Date: 06/20/10 Status: Ordered Start: 04-09-2008 End: 05-02-2024 take 1 tablet by mouth once daily Escitalopram Oxalate 20 MG tablet Discontinued 20 mg PO DAILY April 13, 2016 12:00am May 02, 2024 1:55pm 1 ml etanercept 50 mg/ml prefilled syringe (5 sources) Tumor Necrosis Factor Sisi Start: 08-13-2023 etanercept (Enbrel) 50 MG/ML injection Inject 50 mg under the skin. 08/13/2023 Active Start: 08-13-2023 inject 1 mL by subcu taneous injection every week Enbrel Prefilled Syringe 50 mg/mL subcutaneous solution Dose : 50 mg = 1 mL, Subcutaneous, 2x/Wk, # 8 EA, 0 Refill(s) Start Date: 08/13/23 Status: Ordered fenofibrate 145 mg oral tablet (20 sources) Peroxisome Proliferator Receptor alpha Agonist Start: 02-10-2022 End: 10-29-2025 fenofibrate 145 mg oral tablet Dose : 145 mg = 1 tab(s), Oral, qDay, # 90 tab(s), 3 Refill(s), Pharmacy: [facility] [place], 178, cm, 11/01/24 14:02:00 EST, Height, kg, 11/01/24 14:02:00 EST, Dosing Weight Start Date: 11/03/24 Stop Date: 10/29/25 Status: Ordered Medication Dispense Status: Completed Quantity: 90.0 Unit: tab(s) Total Allowed Fills: 4 Fills Dispensed: 0 Flonase 50 mcg/inh nasal spray (4 sources) Start: 01-05-2022 End: 12-31-2022 take 1 dose nasal route once daily Flonase 50 mcg/inh nasal spray Dose = 1 spray(s), Nostril, each, qDay, # 16 gram(s), 11 Refill(s), Pharmacy: [facility], Acute sinusitis, 179.5, cm, 01/05/22 9:21:00 EST, Height, kg, 01/05/22 9:21:00 EST, Dosing Weight Start Date: 01/05/22 Stop Date: 12/31/22 Status: Ordered fluticasone propionate 0.05 mg/actuat metered dose nasal spray (20 sources) Corticosteroid Start: 04-05-2024 End: 03-14-2026 take 1 dose nasal route once daily Flonase 50 mcg/inh nasal spray Dose = 1 spray(s), Nostril, each, qDay, # 16 gram(s), 11 Refill(s), Pharmacy: [facility], Acute sinusitis, 178, cm, 03/02/25 11:36:00 EDT, Height, kg, 03/02/25 11:36:00 EDT, Dosing Weight Start Date: 03/19/25 Stop Date: 03/14/26 Status: Ordered Medication Dispense Status: Completed Quantity: 16.0 Unit: g Total Allowed Fills: 12 Fills Dispensed: 0 Indications: Acute sinusitis, unspecified; Start: 02-12-2023 End: 02-07-2024 take 1 dose nasal route once daily Flonase 50 mcg/inh nasal spray Dose = 1 spray(s), Nostril, each, qDay, # 16 gram(s), 11 Refill(s), Pharmacy: [facility], Acute sinusitis, 180.3, cm, 02/12/23 8:53:00 EDT, Height, kg, 02/12/23 8:53:00 EDT, Dosing Weight Start Date: 02/12/23 Stop Date: 02/07/24 Status: Ordered Start: 02-10-2022 Fluticasone Pr opionate 50 mcg/actuation spray,suspension Active 1 NMA INTRANASAL DAILY February 10, 2022 12:00am administer into each nostril Start: 02-10-2022 take 1 spray(s) nasa l route once daily Fluticasone Propionate Active 1 SPRAY INTRANASAL DAILY February 10, 2022 12:00am administer into each nostril Start: 01-05-2022 End: 03-31-2025 take 1 dose nasal route once daily fluticasone (Flonase Allergy Relief) 50 MCG/ACT nasal spray Dose = 1 spray(s), Nostril, each, qDay, # 16 gram(s), 11 Refill(s), Pharmacy: [facility] #[id number], Acute sinusitis, 177.8, cm, 04/05/24 14:15:00 EDT, Height, kg, 04/05/24 14:16:00 EDT, Dosing Weight 01/05/2022 03/31/2025 Active Start: 01-05-2022 End: 12-31-2022 take 1 dose nasal route once daily Flonase 50 mcg/inh nasal spray Dose = 1 spray(s), Nostril, each, qDay, # 16 gram(s), 11 Refill(s), Pharmacy: [facility] [facility], Acute sinusitis, 179.5, cm, 01/05/22 9:21:00 EST, Height, kg, 01/05/22 9:21:00 EST, Dosing Weight Start Date: 01/05/22 Stop Date: 12/31/22 Status: Ordered glimepiride 2 mg oral tablet (20 sources) Sulfonylurea Start: 07-20-2021 End: 10-24-2023 take 2 tablets by mouth at breakfast, then take 1 tablet by mouth at dinner glimepiride 2 mg oral tablet See Instructions, Take 2 tablets (4mg) by mouth with breakfast and 1 tablet (2mg) with dinner, # 90 tab(s), 3 Refill(s), Pharmacy: [facility], 178, cm, 02/21/25 15:12:00 EDT, Height, kg, 02/21/25 15:12:00 EDT, Dosing Weight Start Date: 02/22/25 Status: Ordered Quantity: 90.0 Unit: tab(s) Repeat number: 4 Start: 01-02-2021 take 1 tablet by geovani th once daily in the morning glimepiride (AMARYL) 1 MG tablet Take 1 tablet by mouth every morning 30 tablet 1 01/02/2021 Active glucagon (rdna) 1 mg injection (1 source) Antihypoglycemic Agent Start: 09-11-2021 glucago n (rDNA) injection 1 mg 150 ml glucose 50 mg/ml injection (3 sources) Start: 09-11-2021 glucose (GLUTO SE) 40 % oral gel 15 g Start: 09-11-2021 dextrose 50 % IV solution Start: 09-11-2021 dextrose 5 % s olution glucose monitoring kit (FREESTYLE) monitoring kit (6 sources) Start: 02-05-2020 glucose monito ring kit (FREESTYLE) monitoring kit 1 kit by Does not apply route daily 1 kit 0 02/05/2020 Active haloperidol 10 mg oral tablet (20 sources) Typical Antipsychotic Start: 08-13-2023 haloperi dol 10 mg oral tablet Dose : 10 mg = 1 tab(s), Oral, qHS, # 180 tab(s), 0 Refill(s) Start Date: 08/13/23 Status: Ordered Medication Dispense Status: Completed Quantity: 180.0 Unit: tab(s) Total Allowed Fills: 1 Fills Dispensed: 0 Start: 07-08-2022 HALOPERIDOL 5 MG TABS HALOPERIDOL 5 MG TABS, 1 tab(s), Oral, BID, 0 Refill(s), 116 Start Date: 07/08/22 Status: Ordered Start: 08-25-2021 haloperidol de canoate (HALDOL DECANOATE) 100 MG/ML injection Start: 04-13-2016 End: 02-07-2024 Haloperidol Decanoate (Haldo l Decanoate 100) 100 MG/ML solution Discontinued 150 mg IM EVERY MONTH April 13, 2016 12:00am February 07, 2024 6:35am Start: 06-20-2010 Haldol See Ins tructions, injections once monthly, 0 Refill(s), current med (Hx) Start Date: 06/20/10 Status: Ordered haloperidol deca noate (Haldol Decanoate) 100 MG/ML injection Inject 125 mg into the shoulder, thigh, or buttocks every 30 (thirty) days. Active Haloperidol Lact ate (HALDOL IJ) Inject 125 mg into the muscle every 30 days 0 Active Haloperidol Lact ate (HALDOL IJ) Inject 125 mg into the muscle 0 Active 1 ml hydrALAZINE hydrochloride 20 mg/ml injection (1 source) Arteriolar Vasodilator Start: 09-11-2021 hydrALAZINE (APRESOLINE) injection 5 mg 1 ml HYDROmorphone hydrochloride 1 mg/ml cartridge (4 sources) Opioid Agonist Start: 09-11-2021 HYDROmorphone (DILAUDID) injection 1 mg Start: 09-11-2021 HYDROmorphone (DILAUDID) injection 0.25 mg Start: 09-11-2021 HYDROmorphone (DILAUDID) injection 0.5 mg hydrOXYzine pamoate 50 mg oral capsule (20 sources) Antihistamine Start: 03-08-2024 take 1 capsule by mouth twice daily hydrOXYzine pamoate (Vistaril) 50 MG capsule take 1 capsule by mouth twice a day if needed 03/08/2024 Active Start: 09-17-2021 hydrOXYzine (V ISTARIL) 50 MG capsule Start: 01-12-2015 End: 05-02-2024 Vistaril 25 mg oral capsule Dose : 25 mg = 1 cap(s), Oral, Once, 0 Refill(s) Start Date: 01/12/15 Status: Ordered Medication Dispense Status: Completed Total Allowed Fills: 1 Fills Dispensed: 0 hydrOXYzine Pamo ate (VISTARIL PO) Take by mouth 2 times daily 0 Active hydrOXYzine Pamo ate (VISTARIL PO) Take by mouth 0 Active insulin lispro 100 unt/ml injectable solution (2 sources) Insulin Analog Start: 09-11-2021 insulin lispro (HUMALOG) injection vial 0-12 Units labetalol hydrochloride 5 mg/ml injectable solution (1 source) beta-Adrenergi c Sisi Start: 09-11-2021 labetalol (NORMODYNE;TRANDATE) injection 5 mg lactobacillus acidophilus [id number] unt oral capsule (6 sources) Start: 02-10-2022 take 1 capsule by mouth once daily Lactobacillus Acidophilus (Probiotic Gold Acidophilus) 1 billion cell capsule Active 1000 MMU CELLS PO DAILY February 10, 2022 12:00am Start: 01-05-2022 End: 02-04-2022 take 1 capsule by mouth once daily Acidophilus Probiotic Blend oral capsule Dose = 1 cap(s), Oral, qDay, # 30 cap(s), 0 Refill(s), Pharmacy: [id number] [facility], 179.5, cm, 01/05/22 9:21:00 EST, Height, kg, 01/05/22 9:21:00 EST, Dosing Weight Start Date: 01/05/22 Stop Date: 02/04/22 Status: Ordered 10 ml lidocaine hydrochloride 10 mg/ml injection (1 source) Antiarrhythmic, Amide Local Anesthetic Start: 09-11-2021 End: 09-11-2021 lidocaine PF 1 % injection 1 mL meloxicam 15 mg oral tablet (20 sources) Nonsteroidal Anti-inflammatory Drug Start: 10-06-2024 Mobic 15 mg oral tablet Dose : 15 mg = 1 tab(s), Oral, qDay, # 30 tab(s), 5 Refill(s), Pharmacy: [facility] [place], 180.3, cm, 10/05/24 9:50:00 EST, Height, kg, 10/05/24 9:50:00 EST, Dosing Weight Start Date: 10/06/24 Status: Ordered Medication Dispense Status: Completed Quantity: 30.0 Unit: tab(s) Total Allowed Fills: 6 Fills Dispensed: 0 Start: 02-12-2023 Mobic 15 mg or al tablet Dose : 15 mg = 1 tab(s), Oral, qDay, # 30 tab(s), 5 Refill(s), [facility]acy: [id number], 177.8, cm, 04/05/24 14:15:00 EDT, Height, kg, 04/05/24 14:16:00 EDT, Dosing Weight Start Date: 04/05/24 Status: Ordered Start: 08-13-2022 Mobic 15 mg or al tablet Dose : 15 mg = 1 tab(s), Oral, qDay, # 30 tab(s), 5 Refill(s), [facility], [facility], cm, 08/13/22 9:10:00 EDT, Height Start Date: 08/13/22 Status: Ordered Start: 05-14-2022 End: 09-11-2022 Mobic 7.5 mg oral tablet Dos e : 7.5 mg = 1 tab(s), Oral, qDay, # 30 tab(s), 3 Refill(s), Pharmacy: [facility] 180, cm, 05/14/22 9:29:00 EDT, Height Start Date: 05/14/22 Stop Date: 09/11/22 Status: Ordered Start: 07-16-2021 take 0.5 tablet by m outh once daily meloxicam (MOBIC) 15 MG tablet Take 0.5 tablets by mouth daily 30 tablet 2 07/16/2021 Active Start: 06-11-2021 take 1 tablet by geovani th once daily meloxicam (MOBIC) 7.5 MG tablet Indications: Pain and swelling of left shoulder Take 1 tablet by mouth daily 30 tablet 0 06/11/2021 Active Start: 04-18-2019 End: 04-28-2019 Mobic 15 mg oral tablet Dose : 15 mg = 1 tab(s), Oral, qDay, # 10 tab(s), 0 Refill(s) Start Date: 04/18/19 Stop Date: 04/28/19 Status: Ordered 1 ml meperidine hydrochloride 25 mg/ml cartridge (1 source) Opioid Agonist Start: 09-11-2021 meperidine (DEMEROL) injection 12.5 mg metFORMIN hydrochloride 500 mg oral tablet (20 sources) Biguanide Start: 02-10-2022 take 2 tablets by mouth twice daily Metformin 1,000 mg tablet Active 2000 mg PO TWICE A DAY February 10, 2022 12:00am Start: 02-10-2022 take 2000 mg by mout h twice daily Metformin Active 2000 MG PO TWICE A DAY February 10, 2022 12:00am Start: 10-22-2021 End: 10-01-2025 MetFORMIN (Eqv-Glucophage XR ) 500 mg oral tablet, EXTENDED RELEASE Dose : 1,000 mg = 2 tab(s), Oral, BID, # 360 tab(s), 3 Refill(s), Pharmacy: [facility], Diabetes mellitus type 2 in obese 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 due to type 2 diabetes mellitus, 180.3, cm, 10/05/24 9:50:00 EST, Height, kg, 10/05/24 9:50:00 EST, Dosing Weight Start Date: 10/06/24 Stop Date: 10/01/25 Status: Ordered Quantity: 360.0 Unit: tab(s) Repeat number: 4 Indications: Type 2 diabetes mellitus without complications; Type 2 diabetes mellitus with other specified complication; Start: 08-04-2021 metFORMIN (GLU COPHAGE) 500 MG tablet Indications: Type 2 diabetes mellitus without complication, without long-term current use of insulin (HCC) Increase to 2 each morning with breakfast and 2 with supper 360 tablet 1 08/04/2021 Active Start: 01-02-2021 metFORMIN (GLU COPHAGE) 500 MG tablet Indications: Type 2 diabetes mellitus without complication, without long-term current use of insulin (HCC) Increase to 2 each morning with breakfast and one with supper for 2 weeks, then increase to 2 breakfast and 2 with supper. 120 tablet 1 01/02/2021 Active 24 hr metoprolol succinate 25 mg extended release oral tablet (13 sources) beta-Adrenergic Sisi Start: 10-05-2024 metopr olol succinate 25 mg oral TABLET extended release Dose : 25 mg = 1 tab(s), Oral, qDay, Do not crush or chew (controlled release), # 90 tab(s), 3 Refill(s), Pharmacy: [facility] [place], 180.3, cm, 10/05/24 9:50:00 EST, Height, kg, 10/05/24 9:50:00 EST, Dosing Weight Start Date: 10/05/24 Status: Ordered Medication Dispense Status: Completed Quantity: 90.0 Unit: tab(s) Total Allowed Fills: 4 Fills Dispensed: 0 Start: 06-26-2024 take 1 tablet by geovani th every twenty-four hours metoprolol succinate XL (Toprol-XL) 25 MG 24 hr tablet Take 25 mg by mouth. 06/26/2024 Active naproxen 500 mg oral tablet (7 sources) Nonsteroidal Anti-inflammatory Drug Start: 09-23-2024 End: 10-08-2024 take 1 tablet by mouth in the morning naproxen (Naprosyn) 500 MG tablet Take 1 tablet (500 mg) by mouth in the morning and 1 tablet (500 mg) in the evening. Take with meals. Do all this for 15 days. 30 tablet 09/23/2024 10/08/2024 Active Start: 12-27-2020 take 1 tablet by geovani th twice daily naproxen (NAPROSYN) 500 MG tablet Take 1 tablet by mouth 2 times daily 20 tablet 0 03/08/2021 Active Start: 12-27-2019 take 1 tablet by geovani th twice daily as needed for pain naproxen (NAPROSYN) 500 MG tablet Take 1 tablet by mouth 2 times daily as needed for Pain 28 tablet 0 12/27/2019 Active omeprazole 40 mg delayed release oral capsule (20 sources) Proton Pump Inhibitor Start: 05-14-2022 End: 10-29-2025 omeprazole 40 mg oral delayed release capsule Dose : 40 mg = 1 cap(s), Oral, qDay, Take omeprazole BID x7 days, already takes this medication daily, plan to add an extra dose in the evenings., # 7 cap(s), 0 Refill(s), Pharmacy: [facility]/pharmacy #[id number], Epigastric pain, 180, cm, 08/01/25 17:08:00 EDT, Height, kg, 08/01/25 17:08:00 EDT, Dosing Weight Start Date: 08/01/25 Stop Date: 08/08/25 Status: Ordered Medication Dispense Status: Completed Quantity: 7.0 Unit: cap(s) Total Allowed Fills: 1 Fills Dispensed: 0 Indications: Epigastric pain; Start: 08-04-2021 take 1 capsule by mo uth once daily before breakfast omeprazole (PRILOSEC) 20 MG delayed release capsule Indications: Gastroesophageal reflux disease without esophagitis Take 1 capsule by mouth every morning (before breakfast) 90 capsule 1 08/04/2021 Active Start: 12-27-2020 take 1 capsule by mo uth once daily before breakfast omeprazole (PRILOSEC) 20 MG delayed release capsule Indications: Gastroesophageal reflux disease without esophagitis Take 1 capsule by mouth every morning (before breakfast) 30 capsule 5 12/27/2020 Active Start: 01-28-2015 omeprazole (IN ILOSEC) 20 MG delayed release capsule Take 20 mg by mouth 0 01/28/2015 Active ondansetron 4 mg oral tablet (11 sources) Serotonin-3 Receptor Antagonist Start: 08-01-2025 End: 08-08-2025 Zofran 4 mg oral tablet Dose : 4 mg = 1 tab(s), Oral, q8h, # 21 tab(s), 0 Refill(s), Pharmacy: [facility]/pharmacy #[id number], Epigastric pain, 180, cm, 08/01/25 17:08:00 EDT, Height, kg, 08/01/25 17:08:00 EDT, Dosing Weight Start Date: 08/01/25 Stop Date: 08/08/25 Status: Ordered Medication Dispense Status: Completed Quantity: 21.0 Unit: tab(s) Total Allowed Fills: 1 Fills Dispensed: 0 Indications: Epigastric pain; Start: 05-07-2022 End: 05-07-2022 ondansetron (ZOFRAN) injecti on 4 mg Start: 05-07-2022 take 1 tablet by geovani th three times daily as needed for nausea ondansetron (ZOFRAN-ODT) 4 MG disintegrating tablet Take 1 tablet by mouth 3 times daily as needed for Nausea or Vomiting 21 tablet 0 05/07/2022 Active Start: 09-11-2021 End: 09-11-2021 ondansetron (ZOFRAN) injecti on 4 mg Start: 09-02-2021 take 1 tablet by geovani th every eight hours as needed for nausea ondansetron (ZOFRAN) 4 MG tablet Take 1 tablet by mouth every 8 hours as needed for Nausea 20 tablet 0 09/02/2021 Active Start: 09-02-2021 End: 09-02-2021 ondansetron (ZOFRAN) injecti on 4 mg Start: 08-29-2021 take 1 tablet by geovani th every eight hours as needed for nausea ondansetron (ZOFRAN ODT) 4 MG disintegrating tablet Take 1 tablet by mouth every 8 hours as needed for Nausea 12 tablet 0 08/29/2021 Active 1 ml promethazine hydrochloride 25 mg/ml injection (1 source) Phenothiazine Start: 09-11-2021 End: 09-11-2021 promethazine (PHENERGAN) injection 6.25 mg Skyrizi (16 sources) Start: 08-25-2023 Skyrizi q4wk, 0 Refill(s) Start Date: 08/25/23 Status: Ordered Medication Dispense Status: Completed Total Allowed Fills: 1 Fills Dispensed: 0 Start: 08-25-2023 Skyrizi q4wk, 0 Refill(s) Start Date: 08/25/23 Status: Ordered Repeat number: 1 Start: 08-25-2023 Skyrizi q4wk, 0 Refill(s) Start Date: 08/25/23 Status: Ordered Skyrizi Pen 150 MG/ML solution auto-injector (4 sources) Start: 02-11-2024 Skyrizi Pen 150 MG/ML solution auto-injector 02/11/2024 Active sodium chloride flush 0.9 % injection 3 mL (1 source) Start: 09-02-2021 sodium chloride flush 0.9 % injection 3 mL sulfamethoxazole 800 mg / trimethoprim 160 mg oral tablet (1 source) Dihydrofolate Reductase Inhibitor Antibacterial, Sulfonamide Antimicrobial Start: 12-27-2019 End: 01-03-2020 take 1 tablet by mouth twice daily sulfamethoxazole-t rimethoprim (BACTRIM DS) 800-160 MG per tablet Take 1 tablet by mouth 2 times daily for 7 days 14 tablet 0 12/27/2019 01/03/2020 Active tamsulosin hydrochloride 0.4 mg oral capsule (9 sources) alpha-Adrenergic Sisi Start: 06-18-2025 End: 09-16-2025 Flomax 0.4 mg oral capsule Dose : 0.4 mg = 1 cap(s), Oral, qDay, # 30 cap(s), 2 Refill(s), Pharmacy: [facility], Dysuria, 180, cm, 06/18/25 13:14:00 EDT, Height, kg, 06/18/25 13:14:00 EDT, Dosing Weight Start Date: 06/18/25 Stop Date: 09/16/25 Status: Ordered Medication Dispense Status: Completed Quantity: 30.0 Unit: cap(s) Total Allowed Fills: 3 Fills Dispensed: 0 Indications: Dysuria; Start: 02-21-2025 End: 03-07-2025 Flomax 0.4 mg oral capsule D ose : 0.4 mg = 1 cap(s), Oral, qDay, # 14 cap(s), 0 Refill(s), Pharmacy: [facility] [place], Kidney stone, 178, cm, 02/21/25 15:12:00 EDT, Height, kg, 02/21/25 15:12:00 EDT, Dosing Weight Start Date: 02/21/25 Stop Date: 03/07/25 Status: Ordered Medication Dispense Status: Completed Quantity: 14.0 Unit: cap(s) Total Allowed Fills: 1 Fills Dispensed: 0 Indications: Calculus of kidney; tiZANidine 4 mg oral tablet (20 sources) Central alpha-2 Adrenergic Agonist Start: 07-13-2025 tiZANidine 4 mg oral tablet Dose : 4 mg = 1 tab(s), Oral, q8h, # 90 tab(s), 1 Refill(s), Pharmacy: [facility] [place], 180, cm, 06/18/25 13:14:00 EDT, Height, kg, 07/11/25 10:05:00 EDT, Dosing Weight Start Date: 07/13/25 Status: Ordered Medication Dispense Status: Completed Quantity: 90.0 Unit: tab(s) Total Allowed Fills: 2 Fills Dispensed: 0 Start: 05-15-2025 tiZANidine 4 m g oral tablet Dose : 4 mg = 1 tab(s), Oral, q8h, # 90 tab(s), 1 Refill(s), Pharmacy: [facility] [place], 180, cm, 05/10/25 11:54:00 EDT, Height, kg, 05/10/25 11:54:00 EDT, Dosing Weight Start Date: 05/15/25 Status: Ordered Quantity: 90.0 Unit: tab(s) Repeat number: 2 Start: 02-22-2025 tiZANidine 4 m g oral tablet Dose : 4 mg = 1 tab(s), Oral, q8h, # 90 tab(s), 1 Refill(s), Pharmacy: [facility] [place], 178, cm, 02/21/25 15:12:00 EDT, Height, kg, 02/21/25 15:12:00 EDT, Dosing Weight Start Date: 02/22/25 Status: Ordered Quantity: 90.0 Unit: tab(s) Repeat number: 2 Start: 06-23-2023 tiZANidine 4 m g oral tablet Dose : 4 mg = 1 tab(s), Oral, q8h, # 90 tab(s), 1 Refill(s), Pharmacy: [facility] [place], 179.6, cm, 04/13/24 10:38:00 EDT, Height, kg, 04/13/24 10:38:00 EDT, Dosing Weight Start Date: 06/29/24 Status: Ordered Start: 04-27-2023 tiZANidine 4 m g oral tablet Dose : 4 mg = 1 tab(s), Oral, q8h, # 90 tab(s), 1 Refill(s), Pharmacy: [facility], 180.3, cm, 02/12/23 8:53:00 EDT, Height, kg, 02/12/23 8:53:00 EDT, Dosing Weight Start Date: 04/27/23 Status: Ordered Start: 01-13-2023 tiZANidine 4 m g oral tablet Dose : 4 mg = 1 tab(s), Oral, q8h, one time refill in lieu of pcp transistion, # 90 tab(s), 0 Refill(s), Pharmacy: [facility] [place], 179, cm, 10/22/22 9:42:00 EST, Height, kg, 10/22/22 9:42:00 EST, Dosing Weight Start Date: 01/13/23 Status: Ordered traMADol hydrochloride 50 mg oral tablet (1 source) Opioid Agonist Start: 03-19-2025 End: 04-02-2025 traMADol 50 mg oral tablet Dose : 50 mg = 1 tab(s), Oral, q6h, PRN for pain, X 14 day(s), # 28 tab(s), 0 Refill(s), 04/02/25 7:18:00 PM EDT, Pharmacy: [facility], Dental abscess, 178, cm, 03/02/25 11:36:00 EDT, Height, 117.3, kg, 03/02/25 11:36:00 EDT, Dosing Weight Start Date: 03/19/25 Stop Date: 04/02/25 Status: Ordered Quantity: 28.0 Unit: tab(s) Repeat number: 1 Indications: Periapical abscess without sinus; Vitamin D3 125 mcg (5000 intl units) oral capsule (18 sources) Start: 07-09-2025 End: 07-04-2026 take 1 capsule by mouth once, then take 1 capsule by mouth once daily Vitamin D3 125 mcg (5000 intl units) oral capsule Dose : 125 mcg = 1 cap(s), Oral, qDay, # 90 cap(s), 3 Refill(s), Pharmacy: [facility] [place], Vitamin D deficiency, 180, cm, 06/18/25 13:14:00 EDT, Height, kg, 06/18/25 13:14:00 EDT, Dosing Weight Start Date: 07/09/25 Stop Date: 07/04/26 Status: Ordered Medication Dispense Status: Completed Quantity: 90.0 Unit: cap(s) Total Allowed Fills: 4 Fills Dispensed: 0 Indications: Vitamin D deficiency, unspecified; Start: 06-29-2024 End: 06-24-2025 take 1 capsule by mouth once, then take 1 capsule by mouth once daily Vitamin D3 125 mcg (5000 intl units) oral capsule Dose : 125 mcg = 1 cap(s), Oral, qDay, # 90 cap(s), 3 Refill(s), Pharmacy: [facility], Vitamin D deficiency, 179.6, cm, 04/13/24 10:38:00 EDT, Height, kg, 04/13/24 10:38:00 EDT, Dosing Weight Start Date: 06/29/24 Stop Date: 06/24/25 Status: Ordered Quantity: 90.0 Unit: cap(s) Repeat number: 4 Indications: Vitamin D deficiency, unspecified; Start: 06-29-2024 End: 06-24-2025 Vitamin D3 125 mcg (5000 int l units) oral capsule Dose : 125 mcg = 1 cap(s), Oral, qDay, # 90 cap(s), 3 Refill(s), Pharmacy: [facility], Vitamin D deficiency, 179.6, cm, 04/13/24 10:38:00 EDT, Height, kg, 04/13/24 10:38:00 EDT, Dosing Weight Start Date: 06/29/24 Stop Date: 06/24/25 Status: Ordered Start: 12-27-2023 End: 12-21-2024 Vitamin D3 125 mcg (5000 int l units) oral capsule Dose : 125 mcg = 1 cap(s), Oral, qDay, # 90 cap(s), 3 Refill(s), Pharmacy: [facility] #[id number], Vitamin D deficiency, 177.8, cm, 12/27/23 11:06:00 EST, Height, kg, 12/27/23 11:06:00 EST, Dosing Weight Start Date: 12/27/23 Stop Date: 12/21/24 Status: Ordered Start: 02-24-2023 End: 02-19-2024 Vitamin D3 125 mcg (5000 int l units) oral capsule Dose : 125 mcg = 1 cap(s), Oral, qDay, # 90 cap(s), 3 Refill(s), Pharmacy: [facility], Vitamin D deficiency, 180.3, cm, 02/12/23 8:53:00 EDT, Height Start Date: 02/24/23 Stop Date: 02/19/24 Status: Ordered Completed/Discontinued Medications Medication Drug Class(es) Dates Sig (Normalized) Sig (Original) acetaminophen 500 mg oral tablet (1 source) Start: 09-11-2021 End: 09-11-2021 acetaminophen (TYLENOL) tablet 1,000 mg Acidophilus Probiotic Blend oral capsule (3 sources) Start: 01-05-2022 End: 02-04-2022 take 1 capsule by mouth once daily Acidophilus Probiotic Blend oral capsule Dose = 1 cap(s), Oral, qDay, # 30 cap(s), 0 Refill(s), Pharmacy: [id number] 179.5, cm, 01/05/22 9:21:00 EST, Height, kg, 01/05/22 9:21:00 EST, Dosing Weight Start Date: 01/05/22 Stop Date: 02/04/22 Status: Ordered aspirin 81 mg chewable tablet (5 sources) Platelet Aggregation Inhibitor, Nonsteroidal Anti-inflammatory Drug Start: 04-01-2024 End: 04-01-2024 aspirin chewable tablet 324 mg Start: 04-01-2024 End: 04-01-2024 aspirin chewable tablet 324 mg Start: 01-20-2022 aspirin chewab le tablet 324 mg Start: 01-20-2022 End: 02-19-2022 take 1 tablet by mouth once daily aspirin EC 81 MG EC tablet Take 1 tablet by mouth daily 30 tablet 0 01/20/2022 Active azithromycin 250 mg oral tablet (1 source) Macrolide Antimicrobial Start: 12-27-2020 End: 03-08-2021 azithromycin (ZITHROMAX) 250 MG tablet Indications: Left otitis media, unspecified otitis media type Take 2 tabs (500 mg) on Day 1, and take 1 tab (250 mg) on days 2 through 5. 1 packet 0 12/27/2020 03/08/2021 Discontinued ceFAZolin (ANCEF) 2000 mg in dextrose 5 % 100 mL IVPB (1 source) Start: 09-11-2021 End: 09-11-2021 ceFAZolin (ANCEF) 2000 mg in dextrose 5 % 100 mL IVPB cephalexin 500 mg oral capsule (1 source) Cephalosporin Antibacterial Start: 01-12-2015 End: 01-19-2015 cephalexin 500 mg oral capsule Dose : 500 mg = 1 cap(s), Oral, QID, # 28 cap(s), 0 Refill(s) Start Date: 01/12/15 Stop Date: 01/19/15 Status: Ordered diclofenac sodium 0.01 mg/mg topical gel (3 sources) Nonsteroidal Anti-inflammatory Drug Start: 09-07-2023 End: 11-06-2023 diclofenac 1% topical gel 2 = gram(s), Topical, QID, PRN as needed for pain, # 100 gram(s), 1 Refill(s), [facility]acy: [facility] #[id number], Gel, 180.3, cm, 09/07/23 14:04:00 EDT, Height, 117.8, kg, 09/07/23 13:39:00 EDT, Dosing Weight Start Date: 09/07/23 Stop Date: 11/06/23 Status: Ordered dimenhyDRINATE 50 mg oral tablet (1 source) Start: 09-11-2021 End: 09-11-2021 dimenhyDRINATE (DRAMAMINE) tablet 100 mg famotidine 20 mg oral tablet (1 source) Histamine-2 Receptor Antagonist Start: 09-11-2021 End: 09-11-2021 famotidine (PEPCID) tablet 20 mg gabapentin 400 mg oral capsule (20 sources) Anti-epileptic Agent Start: 06-29-2024 End: 09-27-2024 gabapentin 400 mg oral capsule Dose : 400 mg = 1 cap(s), Oral, BID, # 180 cap(s), 0 Refill(s), Pharmacy: [facility] [place], Neuropathy, 179.6, cm, 04/13/24 10:38:00 EDT, Height, 113.6, kg, 04/13/24 10:38:00 EDT, Dosing Weight Start Date: 06/29/24 Stop Date: 09/27/24 Status: Ordered Medication Dispense Status: Completed Quantity: 180.0 Unit: cap(s) Total Allowed Fills: 1 Fills Dispensed: 0 Indications: Polyneuropathy, unspecified; Start: 07-08-2022 gabapentin 400 mg oral capsule Dose : 400 mg = 1 cap(s), Oral, BID, 0 Refill(s), 116 Start Date: 07/08/22 Status: Ordered Start: 06-03-2021 End: 09-11-2024 take 1 capsule by mouth twice daily Gabapentin 100 mg capsule Discontinued 100 mg PO TWICE A DAY February 10, 2022 12:00am September 11, 2024 9:05am 12 hr guaiFENesin 600 mg extended release oral tablet (6 sources) Start: 10-27-2023 End: 11-03-2023 take 1 tablet by mouth every twelve hours in the morning Mucinex 600 MG 12 hr tablet Take 600 mg by mouth in the morning and 600 mg in the evening. 10/27/2023 11/03/2023 Start: 01-05-2022 End: 01-12-2022 guaiFENesin 600 mg oral tabl et, extended release Dose : 600 mg = 1 tab(s), Oral, q12h, X 7 day(s), # 14 tab(s), 0 Refill(s), 01/12/22 10:40:00 EST, Pharmacy: [address], 179.5, cm, 01/05/22 9:21:00 EST, Height, kg, 01/05/22 9:21:00 EST, Dosing Weight Start Date: 01/05/22 Stop Date: 01/12/22 Status: Ordered indocyanine green (IC-GREEN) syringe 2.5 mg (1 source) Start: 09-11-2021 End: 09-11-2021 indocyanine green (IC-GREEN) syringe 2.5 mg 1 ml LORazepam 2 mg/ml injection (2 sources) Benzodiazepine Start: 04-01-2024 End: 04-01-2024 LORazepam (Ativan) injection 1 mg Start: 04-01-2024 End: 04-01-2024 LORazepam (Ativan) injection 1 mg 1 ml morphine sulfate 4 mg/ml cartridge (1 source) Opioid Agonist Start: 09-02-2021 End: 09-02-2021 morphine injection 6 mg Probiotic 10 Ultra Strength oral capsule (6 sources) Start: 03-02-2025 End: 03-16-2025 Probiotic 10 Ultra Strength oral capsule Dose = 1 cap(s), Oral, qDay, may substitute for generic insurance preferred probiotic. I would like him to be on this d/t being on clindamycin., # 14 cap(s), 0 Refill(s), Pharmacy: [facility], Abscess of right jaw, 178, cm, 03/02/25 11:36:00 EDT, Height, kg, 03/02/25 11:36:00 EDT, Dosing Weight Start Date: 03/02/25 Stop Date: 03/16/25 Status: Ordered Medication Dispense Status: Completed Quantity: 14.0 Unit: cap(s) Total Allowed Fills: 1 Fills Dispensed: 0 Indications: Inflammatory conditions of jaws; Start: 03-02-2025 End: 03-16-2025 Probiotic 10 Ultra Strength oral capsule Dose = 1 cap(s), Oral, qDay, may substitute for generic insurance preferred probiotic. I would like him to be on this d/t being on clindamycin., # 14 cap(s), 0 Refill(s), Pharmacy: [facility], Abscess of right jaw, 178, cm, 03/02/25 11:36:00 EDT, Height, kg, 03/02/25 11:36:00 EDT, Dosing Weight Start Date: 03/02/25 Stop Date: 03/16/25 Status: Ordered Quantity: 14.0 Unit: cap(s) Repeat number: 1 Indications: Inflammatory conditions of jaws; 50 ml sodium chloride 9 mg/m l injection (6 sources) Start: 05-07-2022 End: 05-07-2022 0.9 % sodium chloride bolus Start: 09-11-2021 End: 09-11-2021 0.9 % sodium chloride bolus Start: 09-11-2021 0.9 % sodium c hloride infusion Start: 09-11-2021 sodium chlorid e flush 0.9 % injection 5-40 mL Start: 09-02-2021 End: 09-02-2021 0.9 % sodium chloride bolus sucralfate 1000 mg oral tablet (1 source) Aluminum Complex Start: 08-01-2025 End: 08-08-2025 sucralfate 1 g oral tablet Dose : 1 gram(s) = 1 tab(s), Oral, achs, # 28 tab(s), 0 Refill(s), Pharmacy: [facility]/pharmacy #[id number], Epigastric pain, 180, cm, 08/01/25 17:08:00 EDT, Height, kg, 08/01/25 17:08:00 EDT, Dosing Weight Start Date: 08/01/25 Stop Date: 08/08/25 Status: Ordered Medication Dispense Status: Completed Quantity: 28.0 Unit: tab(s) Total Allowed Fills: 1 Fills Dispensed: 0 Indications: Epigastric pain; Problems Active Problems Problem Classification Problem Date Documented Da te Episodic/Chronic Abdominal pain (8 sources) Abdominal pain; Translations: [Unspecified abdominal pain] Onset: 1 Episodic Diabetes mellitus with complications (20 sources) Type 2 diabetes mellitus in obese; Translations: [Dyslipidemia with high density lipoprotein below reference range and triglyceride above reference range due to type 2 diabetes mellitus] Onset: 5 11-03-2021 Chronic Diabetes mellitus without complication (20 sources) Type 2 diabetes mellitus; Translations: [Type 2 diabetes mellitus without complications] Onset: 0 02-15-2020 Chronic Diabetes mellitus without complication (1 source) Hyperglycemia; Translations: [Hyperglycemia, unspecified] Episodic Disorders of lipid metabolism (17 sources) Hyperlipidemia 08-13-2023 Chronic Esophageal disorders (20 sources) Gastroesophageal reflux disease; Translations: [Gastro-esophageal reflux disease without esophagitis] Onset: 4 02-15-2020 Chronic Headache; including migraine (8 sources) Pain in face 08-01-2024 Episodic Heart valve disorders (1 source) Heart murmur 07-14-2023 Episodic Mood disorders (20 sources) Bipolar I disorder; Translations: [Bipolar disorder, unspecified] Onset: 8 02-15-2020 Chronic Nausea and vomiting (1 source) Nausea; Translations: [Nausea] Episodic Nonspecific chest pain (8 sources) Chest pain; Translations: [Chest pain, unspecified] Onset: 4 Episodic Other aftercare (1 source) Long-term current use of drug therapy; Translations: [Other longterm (current) drug therapy] Episodic Other aftercare (1 source) Drug monitoring done; Translations: [Encounter for therapeutic drug level monitoring] Episodic Other circulatory disease (1 source) Increased diastolic arterial pressure Episodic Other connective tissue disease (1 source) Pain in upper limb; Translations: [Pain in left arm] Episodic Other connective tissue disease (2 sources) Pain of left hand; Translations: [Pain in left hand] 08-27-2023 Episodic Other connective tissue disease (2 sources) Pain in finger of left hand; Translations: [Pain in left finger(s)] 09-23-2024 Episodic Other connective tissue disease (2 sources) Pain in left finger(s); Translations: [Pain in left finger(s)] Onset: 4 Episodic Other ear and sense organ disorders (1 source) Otalgia, right ear; Translations: [Otalgia of right ear] Onset: 4 Episodic Other gastrointestinal disorders (20 sources) History of Crohns disease 01-05-2022 Episodic Other gastrointestinal disorders (1 source) Diarrhea; Translations: [Diarrhea, unspecified] Episodic Other hereditary and degenerative nervous system conditions (17 sources) 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 Other inflammatory condition of skin (20 sources) Psoriasis; Translations: [Psoriasis, unspecified] Onset: 0 02-15-2020 Chronic Other inflammatory condition of skin (1 source) Psoriasis vulgaris; Translations: [Psoriasis vulgaris] Chronic Other nervous system disorders (20 sources) Chronic back pain greater than three months duration 11-03-2021 Chronic Other non-traumatic joint disorders (3 sources) Shoulder pain; Translations: [Pain in left shoulder] Episodic Other non-traumatic joint disorders (1 source) Pain in left knee; Translations: [Pain in joint, lower leg] Episodic Other nutritional; endocrine; and metabolic disorders (20 sources) Body mass index 30+ - obesity 11-03-2021 Chronic Other skin disorders (1 source) Axillary hidradenitis suppurativa Episodic Regional enteritis and ulcerative colitis (5 sources) Crohn's disease; Translations: [Crohn's disease, unspecified, without complications] 02-26-2022 Chronic Residual codes; unclassified (18 sources) FH: Thyroid disorder 02-12-2023 Episodic Residual codes; unclassified (6 sources) Swelling of finger of left hand 08-14-2024 Episodic Schizophrenia and other psychotic disorders (20 sources) Schizophrenia; Translations: [Schizophrenia, unspecified] Onset: 8 02-15-2020 Chronic Spondylosis; intervertebral disc disorders; other back problems (1 source) Spondylosis without myelopathy or radiculopathy, cervical region; Translations: [Spondylosis without myelopathy or radiculopathy, cervical region] Onset: Chronic Past or Other Problems Problem Classification Problem Date Documented Date Episodic/Chronic Biliary tract disease (20 sources) Cholelithiasis without obstruction; Translations: [Calculus of gallbladder without cholecystitis without obstruction] Onset: 09-01-2021 Episodic Disorders of teeth and jaw (4 sources) Periapical abscess; Translations: [Periapical abscess without sinus] Onset: 03-02-2025 Episodic Gastritis and duodenitis (20 sources) Gastritis; Translations: [Gastritis, unspecified, without bleeding] Onset: 11-22-2013 01-19-2020 Episodic Other screening for suspected conditions (not mental disorders or infectious disease) (2 sources) Other specified abnormal findings of blood chemistry; Translations: [Other abnormal blood chemistry] Onset: 03-02-2025 Episodic Residual codes; unclassified (2 sources) Postoperative state; Translations: [Other specified postprocedural states] Onset: 09-29-2021 Resolved: 10-29-2021 10-29-2021 Episodic Spondylosis; intervertebral disc disorders; other back problems (20 sources) Cervical nerve root pain; Translations: [Radiculopathy, cervical region] Onset: 01-19-2020 Resolved: 12-27-2020 12-27-2020 Episodic Results Test Name Value Interpretation Reference Range Facility .Auto Diffon 08-02-2025 Basophil, Absolute 0.0 10 3/mcL Normal 0.0-0.3 [facility] Comment on above: Performed By: #### L IPID, ADIFF, CBC, GFR, A1C, ANEU, VIDH, TSH, CMP, FT4 #### [id number] [place], [place] [address] Basophils/100 WBC (Bld) 0.8 % Normal 0.0-2.5 [facility] Comment on above: Performed By: #### L IPID, ADIFF, CBC, GFR, A1C, ANEU, VIDH, TSH, CMP, FT4 #### [address] [place], [place] [address] Eosinophil, Absolute 0.7 10 3/mcL Normal 0.0-0.7 [facility] Comment on above: Performed By: #### L IPID, ADIFF, CBC, GFR, A1C, ANEU, VIDH, TSH, CMP, FT4 #### [address] [address] Eosinophils/100 WBC (Bld) 13.1 % High 0.0-6.0 [facility] Comment on above: Performed By: #### L IPID, ADIFF, CBC, GFR, A1C, ANEU, VIDH, TSH, CMP, FT4 #### [address] [address] Lymphocyte, Absolute 1.3 10 3/mcL Normal 0.9-4.3 [facility] Comment on above: Performed By: #### L IPID, ADIFF, CBC, GFR, A1C, ANEU, VIDH, TSH, CMP, FT4 #### [address] [address] Lymphocytes/100 WBC (Bld) 23.2 % Normal 20.0-40.0 [facility] Comment on above: Performed By: #### L IPID, ADIFF, CBC, GFR, A1C, ANEU, VIDH, TSH, CMP, FT4 #### [address] [address] Monocyte, Absolute 0.4 10 3/mcL Normal 0.1-1.4 [facility] Comment on above: Performed By: #### L IPID, ADIFF, CBC, GFR, A1C, ANEU, VIDH, TSH, CMP, FT4 #### [address] [address] Monocytes/100 WBC (Bld) 7.6 % Normal 2.0-13.0 [facility] Comment on above: Performed By: #### L IPID, ADIFF, CBC, GFR, A1C, ANEU, VIDH, TSH, CMP, FT4 #### [address] [address] Neutrophils/100 WBC (Bld) 55.3 % Normal 50.0-75.0 [facility] Comment on above: Performed By: #### L IPID, ADIFF, CBC, GFR, A1C, ANEU, VIDH, TSH, CMP, FT4 #### [address] [address] .GFRon 08-02-2025 Estimated Glomerular Filtration Rate 106 ml/min/1.73sqm Normal [facility] Comment on above: Result Comment: Stages of Chronic Kidney Disease (CKD) Stage Description eGFR(ml/min/1.73 sq.m.) CKD 1 Normal kidney function or >=90 normal kindney function with possible kidney damage (ex. Proteinuria) CKD 2 Kidney damage with mild loss 60-89 of kidney function CKD 3a Mild to moderate loss of kidney 45-59 function CKD 3b Moderate to severe loss of 30-44 of kindey function CKD 4 Severe loss of kidney function 15-29 CKD 5 Kidney failure <15 Note: (go live 2024) the eGFR calculation was updated to the 2020 CKD-EPI creatinine equation without a race factor to calculate the eGFR results. Performed By: #### L IPID, ADIFF, CBC, GFR, A1C, ANEU, VIDH, TSH, CMP, FT4 #### [address] [address] .NEUABSon 08-02-2025 Neutrophil, Absolute 3.2 10 3/mcL Normal 2.3-8.1 [facility] Comment on above: Performed By: #### L IPID, ADIFF, CBC, GFR, A1C, ANEU, VIDH, TSH, CMP, FT4 #### [address] [address] AMYon 08-02-2025 Amylase [Catalytic activity/Vol] 39 U/L Normal 25-115 [facility] Comment on above: Performed By: #### L IPID, ADIFF, CBC, GFR, A1C, ANEU, VIDH, TSH, CMP, FT4 #### [address] [address] CBCon 08-02-2025 Erythrocyte distribution width (RBC) [Ratio] 13.6 % Normal 11.5-15.5 [facility] Comment on above: Performed By: #### L IPID, ADIFF, CBC, GFR, A1C, ANEU, VIDH, TSH, CMP, FT4 #### [address] [address] Hematocrit (Bld) [Volume fraction] 42.8 % Normal 40.0-52.0 [facility] Comment on above: Performed By: #### L IPID, ADIFF, CBC, GFR, A1C, ANEU, VIDH, TSH, CMP, FT4 #### [address] [address] Hgb 15.1 G/dL Normal 13.0-17.5 [facility] Comment on above: Performed By: #### L IPID, ADIFF, CBC, GFR, A1C, ANEU, VIDH, TSH, CMP, FT4 #### [address] [address] MCH (RBC) [Entitic mass] 29.9 pg Normal 27.0-33.0 [facility] Comment on above: Performed By: #### L IPID, ADIFF, CBC, GFR, A1C, ANEU, VIDH, TSH, CMP, FT4 #### [address] [address] MCHC 35.3 G/dL Normal 32.0-36.0 [facility] Comment on above: Performed By: #### L IPID, ADIFF, CBC, GFR, A1C, ANEU, VIDH, TSH, CMP, FT4 #### [address] [address] MCV (RBC) [Entitic vol] 84.8 fL Normal 81.0-100.0 [facility] Comment on above: Performed By: #### L IPID, ADIFF, CBC, GFR, A1C, ANEU, VIDH, TSH, CMP, FT4 #### [address] [address] Platelet 239 10 3/mcL Normal 150-450 [facility] Comment on above: Performed By: #### L IPID, ADIFF, CBC, GFR, A1C, ANEU, VIDH, TSH, CMP, FT4 #### [address] [address] Platelet mean volume (Bld) [Entitic vol] 7.7 fL Normal 6.4-10.5 [facility] Comment on above: Performed By: #### L IPID, ADIFF, CBC, GFR, A1C, ANEU, VIDH, TSH, CMP, FT4 #### [address] [address] RBC 5.04 10 6/mcL Normal 4.50-6.00 [facility] Comment on above: Performed By: #### L IPID, ADIFF, CBC, GFR, A1C, ANEU, VIDH, TSH, CMP, FT4 #### [address] [address] WBC 5.7 10 3/mcL Normal 4.5-10.8 [facility] Comment on above: Performed By: #### L IPID, ADIFF, CBC, GFR, A1C, ANEU, VIDH, TSH, CMP, FT4 #### [address] [address] CMPon 08-02-2025 Albumin Level 3.8 G/dL Normal 3.5-5.0 [facility] Comment on above: Performed By: #### L IPID, ADIFF, CBC, GFR, A1C, ANEU, VIDH, TSH, CMP, FT4 #### [address] [address] Albumin/Globulin [Mass ratio] 1.1 {ratio} Normal 1.1-2.5 [facility] Comment on above: Performed By: #### L IPID, ADIFF, CBC, GFR, A1C, ANEU, VIDH, TSH, CMP, FT4 #### [address] [address] ALP [Catalytic activity/Vol] 61 U/L Normal 40-135 [facility] Comment on above: Performed By: #### L IPID, ADIFF, CBC, GFR, A1C, ANEU, VIDH, TSH, CMP, FT4 #### [address] [address] ALT [Catalytic activity/Vol] 39 U/L Normal 16-63 [facility] Comment on above: Performed By: #### L IPID, ADIFF, CBC, GFR, A1C, ANEU, VIDH, TSH, CMP, FT4 #### [address] [address] AST [Catalytic activity/Vol] 21 U/L Normal 10-40 [facility] Comment on above: Performed By: #### L IPID, ADIFF, CBC, GFR, A1C, ANEU, VIDH, TSH, CMP, FT4 #### [id number] Bili Total 0.4 mg/dL Normal 0.2-1.0 [facility] Comment on above: Result Comment: Use of this assay is not recommended for patients undergoing treatment with eltrombopag due to the potential for falsely elevated results. Performed By: #### L IPID, ADIFF, CBC, GFR, A1C, ANEU, VIDH, TSH, CMP, FT4 #### [address] [address] BUN/Creatinine Ratio 14 ratio Normal 7-27 [facility] Comment on above: Performed By: #### L IPID, ADIFF, CBC, GFR, A1C, ANEU, VIDH, TSH, CMP, FT4 #### [address] [address] Calcium [Mass/Vol] 9.1 mg/dL Normal 8.4-10.2 [facility] Comment on above: Performed By: #### L IPID, ADIFF, CBC, GFR, A1C, ANEU, VIDH, TSH, CMP, FT4 #### [address] [address] Chloride [Moles/Vol] 105 mmol/L Normal 98-107 [facility] Comment on above: Performed By: #### L IPID, ADIFF, CBC, GFR, A1C, ANEU, VIDH, TSH, CMP, FT4 #### [address] [address] CO2 [Moles/Vol] 29 mmol/L Normal 22-29 [facility] Comment on above: Performed By: #### L IPID, ADIFF, CBC, GFR, A1C, ANEU, VIDH, TSH, CMP, FT4 #### [address] [address] Creatinine [Mass/Vol] 0.93 mg/dL Normal 0.67-1.17 [facility] Comment on above: Performed By: #### L IPID, ADIFF, CBC, GFR, A1C, ANEU, VIDH, TSH, CMP, FT4 #### [place] [address] Electrolyte Balance 8.0 mEq/L Normal 4.0-15.0 [facility] Comment on above: Performed By: #### L IPID, ADIFF, CBC, GFR, A1C, ANEU, VIDH, TSH, CMP, FT4 #### [address] [address] Globulin 3.4 G/dL Normal 2.7-4.4 [facility] Comment on above: Performed By: #### L IPID, ADIFF, CBC, GFR, A1C, ANEU, VIDH, TSH, CMP, FT4 #### [address] [address] Glucose [Mass/Vol] 175 mg/dL High 70-105 [facility] Comment on above: Performed By: #### L IPID, ADIFF, CBC, GFR, A1C, ANEU, VIDH, TSH, CMP, FT4 #### [address] [address] Potassium [Moles/Vol] 4.0 mmol/L Normal 3.5-5.1 [facility] Comment on above: Performed By: #### L IPID, ADIFF, CBC, GFR, A1C, ANEU, VIDH, TSH, CMP, FT4 #### [address] [address] Sodium [Moles/Vol] 142 mmol/L Normal 136-145 [facility] Comment on above: Performed By: #### L IPID, ADIFF, CBC, GFR, A1C, ANEU, VIDH, TSH, CMP, FT4 #### [address] [place], [place] [address] Total Protein 7.2 G/dL Normal 6.4-8.2 [facility] Comment on above: Performed By: #### L IPID, ADIFF, CBC, GFR, A1C, ANEU, VIDH, TSH, CMP, FT4 #### [address] [place], [place] [address] Urea nitrogen [Mass/Vol] 13 mg/dL Normal 7-18 [facility] Comment on above: Performed By: #### L IPID, ADIFF, CBC, GFR, A1C, ANEU, VIDH, TSH, CMP, FT4 #### [address] [address] LABORATORYOrdered By: SYSTEM SYSTEM on 08-02-2025 Albumin BCP dye [Mass/Vol] 3.8 G/dL Normal 3.5 - 5.0 G/dL AO ADM SS Albumin/Globulin [Mass ratio] 1.1 {ratio} Normal 1.1 - 2.5 ratio AO ADM SS ALP [Catalytic activity/Vol] 61 U/L Normal 40 - 135 U/L AO ADM SS ALT With P-5'-P [Catalytic activity/Vol] 39 U/L Normal 16 - 63 U/L AO ADM SS Amylase [Catalytic activity/Vol] 39 U/L Normal 25 - 115 U/L AO ADM SS AST With P-5'-P [Catalytic activity/Vol] 21 U/L Normal 10 - 40 U/L AO ADM SS Basophils (Bld) [#/Vol] 0.0 103/mcL Normal 0.0 - 0.3 10^3/mcL AO Workflow SS Basophils/100 WBC (Bld) 0.8 % Normal 0.0 - 2.5 % AO Workflow SS Bilirubin [Mass/Vol] 0.4 mg/dL Normal 0.2 - 1 .0 mg/dL AO ADM SS Comment on above: Interpretive Data: U se of this assay is not recommended for patients undergoing treatment with eltrombopag due to the potential for falsely elevated results. Calcium [Mass/Vol] 9.1 mg/dL Normal 8.4 - 10. 2 mg/dL AO ADM SS Chloride [Moles/Vol] 105 mmol/L Normal 98 - 10 7 mmol/L AO ADM SS CO2 [Moles/Vol] 29 mmol/L Normal 22 - 29 mmol/L AO ADM SS Creatinine [Mass/Vol] 0.93 mg/dL Normal 0.67 - 1.17 mg/dL AO ADM SS Electrolyte Balance 8.0 mEq/L Normal 4.0 - 15 .0 mEq/L AO ADM SS Eosinophil, Absolute 0.7 103/mcL Normal 0.0 - 0 .7 10^3/mcL AO Workflow SS Eosinophils/100 WBC (Bld) 13.1 % High 0.0 - 6.0 % AO Workflow SS Erythrocyte distribution width (RBC) [Ratio] 13.6 % Normal 11.5 - 15.5 % AO Workflow SS Estimated Glomerular Filtration Rate 106 ml/min/1.73sqm Invalid Interpretation Code AO Chemistry S Comment on above: Interpretive Data: Stages of Chronic Kidney Disease (CKD) Stage Description eGFR(ml/min/1.73 sq.m.) CKD 1 Normal kidney function or >=90 normal kindney function with possible kidney damage (ex. Proteinuria) CKD 2 Kidney damage with mild loss 60-89 of kidney function CKD 3a Mild to moderate loss of kidney 45-59 function CKD 3b Moderate to severe loss of 30-44 of kindey function CKD 4 Severe loss of kidney function 15-29 CKD 5 Kidney failure <15 Note: (go live 2024) the eGFR calculation was updated to the 2020 CKD-EPI creatinine equation without a race factor to calculate the eGFR results. Globulin 3.4 G/dL Normal 2.7 - 4.4 G/dL AO ADM SS Glucose [Mass/Vol] 175 mg/dL High 70 - 105 mg/dL AO ADM SS Hematocrit (Bld) [Volume fraction] 42.8 % Normal 40.0 - 52.0 % AO Workflow SS Hemoglobin (Bld) [Mass/Vol] 15.1 G/dL Normal 13.0 - 17.5 G/dL AO Workflow SS Lipase [Catalytic activity/Vol] 49 U/L Normal 16 - 77 U/L AO ADM SS Lymphocytes (Bld) [#/Vol] 1.3 103/mcL Normal 0.9 - 4.3 10^3/mcL AO Workflow SS Lymphocytes/100 WBC (Bld) 23.2 % Normal 20.0 - 40.0 % AO Workflow SS MCH (RBC) [Entitic mass] 29.9 pg Normal 27.0 - 33.0 pg AO Workflow SS MCHC 35.3 G/dL Normal 32.0 - 36.0 G/dL AO Workflow SS MCV (RBC) [Entitic vol] 84.8 fL Normal 81.0 - 100.0 fL AO Workflow SS Monocytes (Bld) [#/Vol] 0.4 103/mcL Normal 0.1 - 1.4 10^3/mcL AO Workflow SS Monocytes/100 WBC (Bld) 7.6 % Normal 2.0 - 13.0 % AO Workflow SS Neutrophils (Bld) [#/Vol] 3.2 103/mcL Normal 2.3 - 8.1 10^3/mcL AO Workflow SS Neutrophils/100 WBC (Bld) 55.3 % Normal 50.0 - 75.0 % AO Workflow SS Platelet mean volume (Bld) [Entitic vol] 7.7 fL Normal 6.4 - 10.5 fL AO Workflow SS Platelets (Bld) [#/Vol] 239 103/mcL Normal 150 - 450 10^3/mcL AO Workflow SS Potassium [Moles/Vol] 4.0 mmol/L Normal 3.5 - 5.1 mmol/L AO ADM SS Protein [Mass/Vol] 7.2 G/dL Normal 6.4 - 8.2 G/dL AO ADM SS RBC (Bld) [#/Vol] 5.04 106/mcL Normal 4.50 - 6.0 0 10^6/mcL AO Workflow SS Sodium [Moles/Vol] 142 mmol/L Normal 136 - 145 mmol/L AO ADM SS Urea nitrogen [Mass/Vol] 13 mg/dL Normal 7 - 18 mg/dL AO ADM SS Urea nitrogen/Creatinine [Mass ratio] 14 ratio Normal 7 - 27 ratio AO ADM SS WBC (Bld) [#/Vol] 5.7 103/mcL Normal 4.5 - 10.8 10^3/mcL AO Workflow SS LIPon 08-02-2025 Lipase Level 49 U/L Normal 16-77 [facility] Comment on above: Performed By: #### L IPID, ADIFF, CBC, GFR, A1C, ANEU, VIDH, TSH, CMP, FT4 #### [place] [address] QUANTTBon 07-24-2025 QFT Criteria Comment Normal [facility] Comment on above: Result Comment: QuantiFERON-TB Gold Plus is a qualitative indirect test for M tuberculosis infection (including disease) and is intended for use in conjunction with risk assessment, radiography, and other medical and diagnostic evaluations. The QuantiFERON-TB Gold Plus result is determined by subtracting the Nil value from either TB antigen (Ag) value. The Mitogen tube serves as a control for the test. Performed By: #### U A #### [place] [address] QFT Mitogen Value >10.00 Normal [facility] Comment on above: Performed By: #### U A #### [place] [address] QFT Nil Value 0.03 IU/mL Normal [facility] Comment on above: Performed By: #### U A #### [place] [address] QFT TB1 Ag Value 0.03 IU/mL [facility] Comment on above: Performed By: #### U A #### [place] [address] QFT TB2 Ag Value 0.04 IU/mL [facility] Comment on above: Performed By: #### U A #### [place] [address] QFT-TB Gold Plus [employer] Negative Normal Negative [facility] Comment on above: Result Comment: No r esponse to M tuberculosis antigens detected. Infection with M tuberculosis is unlikely, but high risk individuals should be considered for additional testing (ATS/IDSA/CDC Clinical Practice Guidelines, 2017). The reference range is an Antigen minus Nil result of <0.35 IU/mL. The specimen received for QuantiFERON testing was incubated by the ordering institution. Specific procedures outlined in our Directory of Services and in the package insert for the QuantiFERON Gold (In Tube) test must be followed to enable for proper stimulation of cells for the production of interferon gamma. Chemiluminescence immunoassay methodology Performed At: [address] [id number] Kenia Nicholson PhD Ph:[phone] Performed By: #### U A #### [address] [place], [place] [address] MR/PAT.Ismael 07-06-2025 MR/PAT.[facility] Medical Records Department [address] [place] [address] PAT - Anesthesia 07/06/25 1042 MR#: [id number] Acct: [id number] Name: LEONEL LAKE Rep #: [id number] : 1985 39 From: Martinez Cisneros MD PCP: PATRICIA Briscoe Status:PRE SDC Y Race: C [place] 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 When Was Last Pacemaker Check QUESTION #4 FULL TEXT: You/Your Family Experience fever (hyperthermia) with Anesthesia Last Oral Intake Last Oral intake: Last Oral Intake NPO since Meds taken in AM with sips of water? Meds patient instructed to take am of surgery PONV PONV - electric meter tester: PONV - electric meter tester Female No 07/05/25 16:01 HX of Motion Sickness No 07/05/25 16:01 HX of N/V After Surgery No 07/05/25 16:01 Non-Smoker Yes 07/05/25 16:01 Duration of Surgery greater No 07/05/25 16:01 than 60 minutes Number of Risk Factors 1 07/05/25 16:01 PONV Score Low Risk 07/05/25 16:01 Height Weight Height Weight: Anesthesia: Height Weight Height 5 ft 11 in 05/23/25 12:39 Respiratory Assessment Respiratory Assessment - electric meter tester: Respiratory Tract Infection Hx - electric meter tester Hx Respiratory Tract Infection No 07/05/25 16:01 STOP Sleep Apnea STOP Sleep Apnea - electric meter tester: STOP Sleep Apnea - electric meter tester Hx Hypertension No 07/05/25 16:01 Hx Sleep Apnea No 07/05/25 16:01 CPAP BIPAP Do you snore loudly (louder No 07/05/25 16:01 than talking or can be heard Do you often feel tired/ No 07/05/25 16:01 fatigued/ sleepy during daytime? Has anyone observed you stop No 07/05/25 16:01 breathing during sleep? STOP Results Negative 07/05/25 16:01 QUESTION #5 FULL TEXT : Do you snore loudly (louder than talking or can be heard through closed doors)? 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 Specify any problems Hx of Preganancy in last 3 N/A 07/05/25 16:01 Months Nurse Filling Out Transfusion [id number] 07/05/25 16:01 Questions: Date: 07/05/25 07/05/25 16:01 Time: 16:03 07/05/25 16:01 Patient unable to answer at this time (ie. 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 Normal [facility] LABORATORYOrdered By: Antoni Mckeon on 06-18-2025 Albumin DL <= 20 mg/L (U) [Mass/Vol] 5.1 mg/L Invalid Interpretation Code AO ADM SS Albumin/Creatinine DL <= 20 mg/L (U) [Mass ratio] 13 mg/G Normal 0 - 30 mg/G AO Chemistry S Creatinine (U) [Mass/Vol] 39.8 mg/dL Invalid Interpretation Code AO ADM SS LABORATORYOrdered By: [employer] on 06-18-2025 Prostate specific Ag [Mass/Vol] 0.59 ng/mL Normal 0.00 - 4.00 ng/mL AO ADM [facility] U Creatinine 39.8 mg/dL Normal [facility] Comment on above: Performed By: #### U A #### [address] [place], [place] [address] U Microalb 5.1 mg/L Normal [facility] Comment on above: Performed By: #### U A #### [address] [place], [place] [address] U Ratio Alb/Cre 13 mg/G Normal 0-30 [facility] Comment on above: Performed By: #### U A #### [facility] [address] [place], [place] [address] PSAon 06-18-2025 Prostate Specific Antigen 0.59 ng/mL Normal 0.00-4.00 [facility] Comment on above: Performed By: #### P SA #### [facility] [address] [place], [place] [address] CREATININE FINGERSTICKon CREATININE WB < 1.0 Normal 0.70-1.30 [facility] Comment on above: Performed By: #### L 9100.0200 #### [facility] [address] [facility] [place], [address] EGFR WB > 60.0000 Normal >60 [facility] Comment on above: Performed By: #### L 9100.0200 #### [facility] [address] [place], [address] Coronary Angiography CTon Coronary Angiography CT [facility] Services [address] [place] [address] 05/23/25 1725 MR#: [id number] Acct: [id number] Name: LEONEL LAKE Rep #: [id number] : 1985 39 From: Mahesh Olivares MD PCP: PATRICIA Briscoe Status:REG CLI Y Location: CT CCTA w/Cont Coronary Arteries Date of Study:: 05/23/25 Chest pain Coronary Calcium Scoring: High-resolution Computed Tomographic imaging of the chest was performed on [06-15], with particular attention paid to the coronary arteries. Intravenous contrast agent was administered per protocol and images reconstructed and displayed. LEFT MAIN CORONARY ARTERY: Arises from the left coronary cusp with no significant atherosclerotic plaquing noted [] LEFT ANTERIOR DESCENDING CORONARY ARTERY: Arises from the left main coronary artery with scattered proximal and mid atherosclerotic plaquing but with no obvious stenosis noted in the coronary artery distribution which continues to the apex of the ventricle 1 diagonal branch is noted. [] LEFT CIRCUMFLEX CORONARY ARTERY: Scattered nonobstructive calcification noted with good blood flow noted throughout. The vessel continues in the AV groove branch with no high-grade stenosis. [] RIGHT CORONARY ARTERY: Dominant right coronary artery with no significant atherosclerotic plaquing. Scattered calcium noted. Vessel continues and courses and bifurcates a posterior descending artery and a posterolateral vessel. Imitations look nice thanks. THORACIC AORTA: [] PULMONARY ARTERY: [] LEFT ATRIUM/APPENDAGE: [] MITRAL VALVE: [] AORTIC VALVE: [] LEFT VENTRICLE: [] CORONARY CALCIUM SCORE: [] Calcium Scoring Interpretation: Different methods to categorize the overall amount of coronary plaque. Overall amount CAC SIS Visual of coronary plaque P1 Mild -100 <2 1-2 vessels with mild amount of plaque P2 Moderate 101-300 3-4 1-2 vessels with moderate amount, 3 vessels with mild amount of plaque P3 Severe 301-999 5-7 3 vessels with moderate amount, 1 vessel with severe amount of plaque P4 Extensive >1000 >8 2-3 vessels with severe amount of plaque Conclusion: No significant obstructive coronary disease noted. Scattered plaques noted 05/23/25 1728 Date Mahesh Sol Signature (if applicable): Date CC: KIANNA-Emil Mata; PATRICIA Conde; Dr. Mahesh Olivares MD Signed Normal [facility] EGFROrdered By: Fabian Conde on 05-23-2025 GFR/1.73 sq M.predicted among non-blacks MDRD (S/P/Bld) [Vol rate/Area] mL/min/{1.73_m2} >60 [facility] Limited Chest CT Cardiac Onl yon 05-23-[address] Cardiac Only [facility] Imaging Services [address] [place], [place] [id number] Limited Chest CT Cardiac Only MR#: [id number] Acct: [id number] Name: LAKELEONEL Curry Rep #: [id number] : 1985 M 39 From: Darien Florian PCP: PATRICIA Briscoe Status: REG CLI Study: Limited Chest CT Cardiac Only Date of Exam: Exam# [id number] Ordering Dr: Fabian Conde NP PROCEDURE: LIMITED CHEST CT CARDIAC ONLY 05/23/2025 REASON FOR EXAM: CP TECHNIQUE: LIMITED CHEST CT CARDIAC ONLY CONTRAST: Isovue 370 VOLUME: 77 mL intravenous One or more dose reduction techniques were used (e.g., Automated exposure control, adjustment of the mA and/or kV according to patient size, use of iterative reconstruction technique). RADIATION DOSE SUMMARY: DLP: 2016.94 mGycm COMPARISON: None. CT/Limited Chest CT Cardiac Only IMPRESSION: Diffuse fatty infiltration of the liver is noted. Limited imaging of the lungs demonstrates no acute process. No pleural effusion or pneumothorax is seen in visualized areas. No adenopathy is noted. The visualized upper abdomen demonstrates no other significant abnormality. Reading Location: [place] [address] CC: PATRICIA Mata; PATRICIA Conde [employer]: Signed Normal [facility] .Auto Diffon 05-11-2025 Basophil, Absolute 0.1 10 3/mcL Normal 0.0-0.3 [facility] Comment on above: Performed By: #### U A #### [address] [address] Basophils/100 WBC (Bld) 0.9 % Normal 0.0-2.5 [facility] Comment on above: Performed By: #### U A #### [address] [place], [place] [address] Eosinophil, Absolute 0.6 10 3/mcL Normal 0.0-0.7 [facility] Comment on above: Performed By: #### U A #### [address] [place], [place] [address] Eosinophils/100 WBC (Bld) 8.7 % High 0.0-6.0 [facility] Comment on above: Performed By: #### U A #### [address] [place], [place] [address] Lymphocyte, Absolute 1.4 10 3/mcL Normal 0.9-4.3 [facility] Comment on above: Performed By: #### U A #### [address] [place], [place] [address] Lymphocytes/100 WBC (Bld) 20.1 % Normal 20.0-40.0 [facility] Comment on above: Performed By: #### U A #### [address] [address] Monocyte, Absolute 0.6 10 3/mcL Normal 0.1-1.4 [facility] Comment on above: Performed By: #### U A #### [address] [address] Monocytes/100 WBC (Bld) 8.2 % Normal 2.0-13.0 [facility] Comment on above: Performed By: #### U A #### [address] [address] Neutrophils/100 WBC (Bld) 62.1 % Normal 50.0-75.0 [facility] Comment on above: Performed By: #### U A #### [address] [address] .GFRon 05-11-2025 Estimated Glomerular Filtration Rate 100 ml/min/1.73sqm Normal [facility] Comment on above: Result Comment: Stages of Chronic Kidney Disease (CKD) Stage Description eGFR(ml/min/1.73 sq.m.) CKD 1 Normal kidney function or >=90 normal kindney function with possible kidney damage (ex. Proteinuria) CKD 2 Kidney damage with mild loss 60-89 of kidney function CKD 3a Mild to moderate loss of kidney 45-59 function CKD 3b Moderate to severe loss of 30-44 of kindey function CKD 4 Severe loss of kidney function 15-29 CKD 5 Kidney failure <15 Note: (go live 2024) the eGFR calculation was updated to the 2020 CKD-EPI creatinine equation without a race factor to calculate the eGFR results. Performed By: #### U A #### [address] [address] .NEUABSon 05-11-2025 Neutrophil, Absolute 4.3 10 3/mcL Normal 2.3-8.1 [facility] Comment on above: Performed By: #### U A #### [address] [address] CBCon 05-11-2025 Erythrocyte distribution width (RBC) [Ratio] 13.7 % Normal 11.5-15.5 [facility] Comment on above: Order Comment: Pleas e do stat Performed By: #### U A #### [place] [address] Hematocrit (Bld) [Volume fraction] 43.7 % Normal 40.0-52.0 [facility] Comment on above: Order Comment: Pleas e do stat Performed By: #### U A #### [place] [address] Hgb 15.0 G/dL Normal 13.0-17.5 [facility] Comment on above: Order Comment: Pleas e do stat Performed By: #### U A #### [place] [address] MCH (RBC) [Entitic mass] 29.3 pg Normal 27.0-33.0 [facility] Comment on above: Order Comment: Pleas e do stat Performed By: #### U A #### [place] [address] MCHC 34.2 G/dL Normal 32.0-36.0 [facility] Comment on above: Order Comment: Pleas e do stat Performed By: #### U A #### [place] [address] MCV (RBC) [Entitic vol] 85.7 fL Normal 81.0-100.0 [facility] Comment on above: Order Comment: Pleas e do stat Performed By: #### U A #### [id number] Platelet 244 10 3/mcL Normal 150-450 [facility] Comment on above: Order Comment: Pleas e do stat Performed By: #### U A #### [address] [address] Platelet mean volume (Bld) [Entitic vol] 7.3 fL Normal 6.4-10.5 [facility] Comment on above: Order Comment: Pleas e do stat Performed By: #### U A #### [address] [address] RBC 5.10 10 6/mcL Normal 4.50-6.00 [facility] Comment on above: Order Comment: Pleas e do stat Performed By: #### U A #### [address] [address] WBC 6.9 10 3/mcL Normal 4.5-10.8 [facility] Comment on above: Order Comment: Pleas e do stat Performed By: #### U A #### [address] [address] CMPon 05-11-2025 Albumin/Globulin [Mass ratio] 1.0 {ratio} Low 1.1-2.5 [facility] Comment on above: Order Comment: Pleas e do stat Performed By: #### U A #### [address] [address] ALP [Catalytic activity/Vol] 65 U/L Normal 40-135 [facility] Comment on above: Order Comment: Pleas e do stat Performed By: #### U A #### [address] [address] Bili Total 0.4 mg/dL Normal 0.2-1.0 [facility] Comment on above: Order Comment: Pleas e do stat Result Comment: Use of this assay is not recommended for patients undergoing treatment with eltrombopag due to the potential for falsely elevated results. Performed By: #### U A #### [address] [address] BUN/Creatinine Ratio 13 ratio Normal 7-27 [facility] Comment on above: Order Comment: Pleas e do stat Performed By: #### U A #### [address] [address] Creatinine [Mass/Vol] 0.98 mg/dL Normal 0.67-1.17 [facility] Comment on above: Order Comment: Pleas e do stat Performed By: #### U A #### [address] [address] Globulin 3.9 G/dL Normal 2.7-4.4 [facility] Comment on above: Order Comment: Pleas e do stat Performed By: #### U A #### [address] [address] Total Protein 7.9 G/dL Normal 6.4-8.2 [facility] Comment on above: Order Comment: Pleas e do stat Performed By: #### U A #### [address] [address] Albumin Level 4.0 G/dL Normal 3.5-5.0 [facility] Comment on above: Order Comment: Pleas e do stat Performed By: #### U A #### [address] [address] ALT [Catalytic activity/Vol] 41 U/L Normal 16-63 [facility] Comment on above: Order Comment: Pleas e do stat Performed By: #### U A #### [address] [address] AST [Catalytic activity/Vol] 19 U/L Normal 10-40 [facility] Comment on above: Order Comment: Pleas e do stat Performed By: #### U A #### [address] [address] Calcium [Mass/Vol] 9.2 mg/dL Normal 8.4-10.2 [facility] Comment on above: Order Comment: Pleas e do stat Performed By: #### U A #### [address] [address] Chloride [Moles/Vol] 104 mmol/L Normal 98-107 [facility] Comment on above: Order Comment: Pleas e do stat Performed By: #### U A #### [address] [address] CO2 [Moles/Vol] 26 mmol/L Normal 22-29 [facility] Comment on above: Order Comment: Pleas e do stat Performed By: #### U A #### [address] [address] Electrolyte Balance 9.0 mEq/L Normal 4.0-15.0 [facility] Comment on above: Order Comment: Pleas e do stat Performed By: #### U A #### [address] [address] Glucose [Mass/Vol] 149 mg/dL High 70-105 [facility] Comment on above: Order Comment: Pleas e do stat Performed By: #### U A #### [address] [address] Potassium [Moles/Vol] 3.7 mmol/L Normal 3.5-5.1 [facility] Comment on above: Order Comment: Pleas e do stat Performed By: #### U A #### [address] [address] Sodium [Moles/Vol] 139 mmol/L Normal 136-145 [facility] Comment on above: Order Comment: Pleas e do stat Performed By: #### U A #### [address] [address] Urea nitrogen [Mass/Vol] 13 mg/dL Normal 7-18 [facility] Comment on above: Order Comment: Pleas e do stat Performed By: #### U A #### [address] [address] ESRon 05-11-2025 Erythrocyte Sed Rate 5 mm/hr Normal 0-15 [facility] Comment on above: Performed By: #### U A #### [address] [place], [place] [address] LABORATORYOrdered By: Mahesh Lainez on 05-11-2025 Appearance (U) Clear (05/11/25 11:58 AM) Normal Clear AO Auto Urine SS Bilirubin Ql (U) Negative (05/11/25 11:58 AM) Normal Negative AO Auto Urine SS Color (U) Yellow (05/11/25 11:58 AM) Normal AO Auto Urine SS Glucose Test strip (U) [Mass/Vol] >=1000 mg/dL Invalid Interpretation Code Negative AO Auto Urine SS Hemoglobin Auto test strip (U) [Mass/Vol] Negative (05/11/25 11:58 AM) Normal Negative AO Auto Urine SS Ketones Ql (U) Negative Normal Negative AO Auto Urine SS UA Leuk Est Negative (05/11/25 11:58 AM) Normal Negative AO Auto Urine SS UA Nitrite Negative (05/11/25 11:58 AM) Normal Negative AO Auto Urine SS UA pH 6.0 (05/11/25 11:58 AM) Normal 5.0 - 8.0 AO Auto Urine SS UA Protein Negative Normal Negative AO Auto Urine SS UA Spec Grav <=1.005 *ABN* (05/11/25 11:58 AM) Invalid Interpretation Code 1.015-1.025 AO Auto Urine SS UA Specimen Type Clean Catch (05/11/25 11:58 AM) Normal AO Auto Urine SS UA Urobilinogen 0.2 E.U./dL Normal 0.2-1.0 AO Auto Urine SS LABORATORYOrdered By: SYSTEM SYSTEM on 05-11-2025 Albumin BCP dye [Mass/Vol] 4.0 G/dL Normal 3.5 - 5.0 G/dL AO ADM SS Albumin/Globulin [Mass ratio] 1.0 {ratio} Low 1.1 - 2.5 ratio AO ADM SS ALP [Catalytic activity/Vol] 65 U/L Normal 40 - 135 U/L AO ADM SS ALT With P-5'-P [Catalytic activity/Vol] 41 U/L Normal 16 - 63 U/L AO ADM SS AST With P-5'-P [Catalytic activity/Vol] 19 U/L Normal 10 - 40 U/L AO ADM SS Basophils (Bld) [#/Vol] 0.1 103/mcL Normal 0.0 - 0.3 10^3/mcL AO Workflow SS Basophils/100 WBC (Bld) 0.9 % Normal 0.0 - 2.5 % AO Workflow SS Bilirubin [Mass/Vol] 0.4 mg/dL Normal 0.2 - 1 .0 mg/dL AO ADM SS Comment on above: Interpretive Data: U se of this assay is not recommended for patients undergoing treatment with eltrombopag due to the potential for falsely elevated results. Calcium [Mass/Vol] 9.2 mg/dL Normal 8.4 - 10. 2 mg/dL AO ADM SS Chloride [Moles/Vol] 104 mmol/L Normal 98 - 10 7 mmol/L AO ADM SS CO2 [Moles/Vol] 26 mmol/L Normal 22 - 29 mmol/L AO ADM SS Creatinine [Mass/Vol] 0.98 mg/dL Normal 0.67 - 1.17 mg/dL AO ADM SS Electrolyte Balance 9.0 mEq/L Normal 4.0 - 15 .0 mEq/L AO ADM SS Eosinophil, Absolute 0.6 103/mcL Normal 0.0 - 0 .7 10^3/mcL AO Workflow SS Eosinophils/100 WBC (Bld) 8.7 % High 0.0 - 6.0 % AO Workflow SS Erythrocyte distribution width (RBC) [Ratio] 13.7 % Normal 11.5 - 15.5 % AO Workflow SS Estimated Glomerular Filtration Rate 100 ml/min/1.73sqm Invalid Interpretation Code AO Chemistry S Comment on above: Interpretive Data: Stages of Chronic Kidney Disease (CKD) Stage Description eGFR(ml/min/1.73 sq.m.) CKD 1 Normal kidney function or >=90 normal kindney function with possible kidney damage (ex. Proteinuria) CKD 2 Kidney damage with mild loss 60-89 of kidney function CKD 3a Mild to moderate loss of kidney 45-59 function CKD 3b Moderate to severe loss of 30-44 of kindey function CKD 4 Severe loss of kidney function 15-29 CKD 5 Kidney failure <15 Note: (go live 2024) the eGFR calculation was updated to the 2020 CKD-EPI creatinine equation without a race factor to calculate the eGFR results. Globulin 3.9 G/dL Normal 2.7 - 4.4 G/dL AO ADM SS Glucose [Mass/Vol] 149 mg/dL High 70 - 105 mg/dL AO ADM SS Hematocrit (Bld) [Volume fraction] 43.7 % Normal 40.0 - 52.0 % AO Workflow SS Hemoglobin (Bld) [Mass/Vol] 15.0 G/dL Normal 13.0 - 17.5 G/dL AO Workflow SS Lymphocytes (Bld) [#/Vol] 1.4 103/mcL Normal 0.9 - 4.3 10^3/mcL AO Workflow SS Lymphocytes/100 WBC (Bld) 20.1 % Normal 20.0 - 40.0 % AO Workflow SS MCH (RBC) [Entitic mass] 29.3 pg Normal 27.0 - 33.0 pg AO Workflow SS MCHC 34.2 G/dL Normal 32.0 - 36.0 G/dL AO Workflow SS MCV (RBC) [Entitic vol] 85.7 fL Normal 81.0 - 100.0 fL AO Workflow SS Monocytes (Bld) [#/Vol] 0.6 103/mcL Normal 0.1 - 1.4 10^3/mcL AO Workflow SS Monocytes/100 WBC (Bld) 8.2 % Normal 2.0 - 13.0 % AO Workflow SS Neutrophils (Bld) [#/Vol] 4.3 103/mcL Normal 2.3 - 8.1 10^3/mcL AO Workflow SS Neutrophils/100 WBC (Bld) 62.1 % Normal 50.0 - 75.0 % AO Workflow SS Platelet mean volume (Bld) [Entitic vol] 7.3 fL Normal 6.4 - 10.5 fL AO Workflow SS Platelets (Bld) [#/Vol] 244 103/mcL Normal 150 - 450 10^3/mcL AO Workflow SS Potassium [Moles/Vol] 3.7 mmol/L Normal 3.5 - 5.1 mmol/L AO ADM SS Protein [Mass/Vol] 7.9 G/dL Normal 6.4 - 8.2 G/dL AO ADM SS RBC (Bld) [#/Vol] 5.10 106/mcL Normal 4.50 - 6.0 0 10^6/mcL AO Workflow SS Sodium [Moles/Vol] 139 mmol/L Normal 136 - 145 mmol/L AO ADM SS Urea nitrogen [Mass/Vol] 13 mg/dL Normal 7 - 18 mg/dL AO ADM SS Urea nitrogen/Creatinine [Mass ratio] 13 ratio Normal 7 - 27 ratio AO ADM SS WBC (Bld) [#/Vol] 6.9 103/mcL Normal 4.5 - 10.8 10^3/mcL AO Workflow SS LABORATORYOrdered By: Niraj Velásquez on 05-11-2025 ESR Photometric method (Bld) [Velocity] 5 mm/hr Normal 0 - 15 mm/hr AO Man Heme SS UAon 05-11-2025 Color (U) Yellow Normal [facility] Comment on above: Order Comment: Pleas e do stat Performed By: #### U A #### [place] [address] Glucose (U) [Mass/Vol] mg/dL Abnormal Negative [facility] Comment on above: Order Comment: Pleas e do stat Performed By: #### U A #### [place] [address] Ketones Ql (U) Negative Normal Negative [facility] Comment on above: Order Comment: Pleas e do stat Performed By: #### U A #### [place] [address] UA Appear Clear Normal Clear [facility] Comment on above: Order Comment: Pleas e do stat Performed By: #### U A #### [address] [address] UA Blood Negative Normal Negative [facility] Comment on above: Order Comment: Pleas e do stat Performed By: #### U A #### [address] [address] UA Leuk Est Negative Normal Negative [facility] Comment on above: Order Comment: Pleas e do stat Performed By: #### U A #### [address] [address] UA Nitrite Negative Normal Negative [facility] Comment on above: Order Comment: Pleas e do stat Performed By: #### U A #### [place] [address] UA pH 6.0 Normal 5.0 - 8.0 [facility] Comment on above: Order Comment: Pleas e do stat Performed By: #### U A #### [place] [address] UA Protein Negative Normal Negative [facility] Comment on above: Order Comment: Pleas e do stat Performed By: #### U A #### [place] [address] UA Spec Grav <=1.005 Abnormal 1.015-1.025 [facility] Comment on above: Order Comment: Pleas e do stat Performed By: #### U A #### [place] [address] UA Specimen Type Clean Catch Normal [facility] Comment on above: Order Comment: Pleas e do stat Performed By: #### U A #### [place] [address] UA Urobilinogen 0.2 E.U./dL Normal 0.2-1.0 [facility] Comment on above: Order Comment: Pleas e do stat Performed By: #### U A #### [place] [address] Urobilinogen (U) [Mass/Vol] Negative Normal Negative [facility] Comment on above: Order Comment: Pleas e do stat Performed By: #### U A #### [place] [address] CT SOFT TISSUE NECK W/ CONTR Sanjuana 03-02-2025 CT SOFT TISSUE NECK W/ CONTRAST ORIGINAL EXAMINATION: CT neck with intravenous contrast TECHNIQUE: CT of the neck was performed following the uneventful administration of Omnipaque 300 intravenous contrast. Axial images were obtained through the neck with multiplanar reformats. Low dose CT acquisition technique included one of the following options: 1. Automated exposure control, 2. Adjustment of the MA and/or KV according to patient size, or 3. Use of iterative reconstruction. DICOM images are available. COMPARISON: None. HISTORY: ORDERING SYSTEM PROVIDED HISTORY: Reason for Exam: right jaw abscess/nodule FINDINGS: Soft tissues: Subcutaneous induration along the right mandible associated with a periapical lucency of the right 1st molar tooth. Associated thickening of the platysma and induration extending along the anterior central mandible is noted without an abscess or drainable fluid collection. Aerodigestive tract: No primary lesion identified within the nasopharynx, oropharynx, hypopharynx, larynx, and proximal trachea. Salivary glands: Unremarkable. Thyroid: Unremarkable. Lymph nodes : There are multiple subcentimeter lymph nodes in the neck bilaterally likely reactive in etiology. No pathologically enlarged or morphologically suspicious adenopathy. Vessels: Unremarkable. Bones: No acute osseous pathology. Straightening of the normal cervical lordosis. Visualized lung apices: Clear. Visualized brain parenchyma: No acute pathology. Paranasal sinuses: Clear. Leftward nasal septal deviation. Additional comment: Periapical lucencies involve the right mandibular lateral incisor, canine, pre molar and 1st molar teeth. The last right mandibular molar tooth is impacted. IMPRESSION: 1. Subcutaneous induration along the right mandible associated with a periapical lucency of the right 1st molar tooth without an abscess or drainable fluid collection. 2. Multiple subcentimeter lymph nodes in the neck bilaterally likely reactive in etiology. 3. Periapical lucencies involve the right mandibular lateral incisor, canine, pre molar and 1st molar teeth. Diagnostic considerations include pulpal disease and periodontal abscess. The last right mandibular molar tooth is impacted. Dental consultation is advised. Interpreted by: Malachi De Jesus MD Preliminary Report By: Malachi De Jesus MD Electronically signed By Malachi De Jesus MD Dictated Date: 03/02/2025 1:50:47 PM Prelim Date: 03/02/2025 1:59:18 PM Sign Date: 03/02/2025 1:59:18 PM Ordering Provider: WANDA Mo [facility] .Auto Diffon 02-23-2025 Basophil, Absolute 0.0 10 3/mcL Normal 0.0-0.3 [facility] Comment on above: Performed By: #### L IPID, ADIFF, CBC, GFR, A1C, ANEU, VIDH, TSH, CMP, FT4 #### [place] [address] [place], [place] [address] Basophils/100 WBC (Bld) 0.6 % Normal 0.0-2.5 [facility] Comment on above: Performed By: #### L IPID, ADIFF, CBC, GFR, A1C, ANEU, VIDH, TSH, CMP, FT4 #### Sejal Norman [address] [place] [address] Eosinophil, Absolute 0.3 10 3/mcL Normal 0.0-0.7 [facility] Comment on above: Performed By: #### L IPID, ADIFF, CBC, GFR, A1C, ANEU, VIDH, TSH, CMP, FT4 #### [address] [address] Eosinophils/100 WBC (Bld) 4.4 % Normal 0.0-6.0 [facility] Comment on above: Performed By: #### L IPID, ADIFF, CBC, GFR, A1C, ANEU, VIDH, TSH, CMP, FT4 #### [address] [address] Lymphocyte, Absolute 1.8 10 3/mcL Normal 0.9-4.3 [facility] Comment on above: Performed By: #### L IPID, ADIFF, CBC, GFR, A1C, ANEU, VIDH, TSH, CMP, FT4 #### [address] [address] Lymphocytes/100 WBC (Bld) 25.6 % Normal 20.0-40.0 [facility] Comment on above: Performed By: #### L IPID, ADIFF, CBC, GFR, A1C, ANEU, VIDH, TSH, CMP, FT4 #### [address] [address] Monocyte, Absolute 0.7 10 3/mcL Normal 0.1-1.4 [facility] Comment on above: Performed By: #### L IPID, ADIFF, CBC, GFR, A1C, ANEU, VIDH, TSH, CMP, FT4 #### [address] [address] Monocytes/100 WBC (Bld) 9.6 % Normal 2.0-13.0 [facility] Comment on above: Performed By: #### L IPID, ADIFF, CBC, GFR, A1C, ANEU, VIDH, TSH, CMP, FT4 #### [address] [address] Neutrophils/100 WBC (Bld) 59.8 % Normal 50.0-75.0 [facility] Comment on above: Performed By: #### L IPID, ADIFF, CBC, GFR, A1C, ANEU, VIDH, TSH, CMP, FT4 #### [address] [place] [place], [place] [address] .GFRon 02-23-2025 Estimated Glomerular Filtration Rate 92 ml/min/1.73sqm Normal [facility] Comment on above: Result Comment: Stages of Chronic Kidney Disease (CKD) Stage Description eGFR(ml/min/1.73 sq.m.) CKD 1 Normal kidney function or >=90 normal kindney function with possible kidney damage (ex. Proteinuria) CKD 2 Kidney damage with mild loss 60-89 of kidney function CKD 3a Mild to moderate loss of kidney 45-59 function CKD 3b Moderate to severe loss of 30-44 of kindey function CKD 4 Severe loss of kidney function 15-29 CKD 5 Kidney failure <15 Note: (go live 2024) the eGFR calculation was updated to the 2020 CKD-EPI creatinine equation without a race factor to calculate the eGFR results. Performed By: #### L IPID, ADIFF, CBC, GFR, A1C, ANEU, VIDH, TSH, CMP, FT4 #### [address] [address] .NEUABSon 02-23-2025 Neutrophil, Absolute 4.2 10 3/mcL Normal 2.3-8.1 [facility] Comment on above: Performed By: #### L IPID, ADIFF, CBC, GFR, A1C, ANEU, VIDH, TSH, CMP, FT4 #### [address] [address] A1Con 02-23-2025 Glucose [Mass/Vol] 126 mg/dL Normal [facility] Comment on above: Result Comment: Rama mated Average Glucose calculated by equation ((28.7xA1C)-46.7) Estimated average glucose (eAG) is a calculated value from Hemoglobin A1C and is sales representative uniforms of the average blood glucose level in the last 2-3 month period. Normal range: less than 114 mg/dL Performed By: #### L IPID, ADIFF, CBC, GFR, A1C, ANEU, VIDH, TSH, CMP, FT4 #### [place] [address] HbA1c (Bld) [Mass fraction] 6.0 % Normal 4.3-6.4 [facility] Comment on above: Performed By: #### L IPID, ADIFF, CBC, GFR, A1C, ANEU, VIDH, TSH, CMP, FT4 #### [place] [address] CBCon 02-23-2025 Erythrocyte distribution width (RBC) [Ratio] 13.7 % Normal 11.5-15.5 [facility] Comment on above: Performed By: #### L IPID, ADIFF, CBC, GFR, A1C, ANEU, VIDH, TSH, CMP, FT4 #### [place] [address] Hematocrit (Bld) [Volume fraction] 45.1 % Normal 40.0-52.0 [facility] Comment on above: Performed By: #### L IPID, ADIFF, CBC, GFR, A1C, ANEU, VIDH, TSH, CMP, FT4 #### [place] [address] Hgb 15.6 G/dL Normal 13.0-17.5 [facility] Comment on above: Performed By: #### L IPID, ADIFF, CBC, GFR, A1C, ANEU, VIDH, TSH, CMP, FT4 #### [place] [address] MCH (RBC) [Entitic mass] 29.4 pg Normal 27.0-33.0 [facility] Comment on above: Performed By: #### L IPID, ADIFF, CBC, GFR, A1C, ANEU, VIDH, TSH, CMP, FT4 #### [place] [address] MCHC 34.6 G/dL Normal 32.0-36.0 [facility] Comment on above: Performed By: #### L IPID, ADIFF, CBC, GFR, A1C, ANEU, VIDH, TSH, CMP, FT4 #### [address] [address] MCV (RBC) [Entitic vol] 84.9 fL Normal 81.0-100.0 [facility] Comment on above: Performed By: #### L IPID, ADIFF, CBC, GFR, A1C, ANEU, VIDH, TSH, CMP, FT4 #### [address] [address] Platelet 270 10 3/mcL Normal 150-450 [facility] Comment on above: Performed By: #### L IPID, ADIFF, CBC, GFR, A1C, ANEU, VIDH, TSH, CMP, FT4 #### [address] [address] Platelet mean volume (Bld) [Entitic vol] 7.4 fL Normal 6.4-10.5 [facility] Comment on above: Performed By: #### L IPID, ADIFF, CBC, GFR, A1C, ANEU, VIDH, TSH, CMP, FT4 #### [address] [address] RBC 5.31 10 6/mcL Normal 4.50-6.00 [facility] Comment on above: Performed By: #### L IPID, ADIFF, CBC, GFR, A1C, ANEU, VIDH, TSH, CMP, FT4 #### [address] [address] WBC 7.0 10 3/mcL Normal 4.5-10.8 [facility] Comment on above: Performed By: #### L IPID, ADIFF, CBC, GFR, A1C, ANEU, VIDH, TSH, CMP, FT4 #### [address] [address] CMPon 02-23-2025 Albumin Level 4.3 G/dL Normal 3.5-5.0 [facility] Comment on above: Performed By: #### L IPID, ADIFF, CBC, GFR, A1C, ANEU, VIDH, TSH, CMP, FT4 #### [address] [address] Albumin/Globulin [Mass ratio] 1.2 {ratio} Normal 1.1-2.5 [facility] Comment on above: Performed By: #### L IPID, ADIFF, CBC, GFR, A1C, ANEU, VIDH, TSH, CMP, FT4 #### [address] [address] ALP [Catalytic activity/Vol] 75 U/L Normal 40-135 [facility] Comment on above: Performed By: #### L IPID, ADIFF, CBC, GFR, A1C, ANEU, VIDH, TSH, CMP, FT4 #### [place] [address] ALT [Catalytic activity/Vol] 34 U/L Normal 16-63 [facility] Comment on above: Performed By: #### L IPID, ADIFF, CBC, GFR, A1C, ANEU, VIDH, TSH, CMP, FT4 #### [place] [address] AST [Catalytic activity/Vol] 22 U/L Normal 10-40 [facility] Comment on above: Performed By: #### L IPID, ADIFF, CBC, GFR, A1C, ANEU, VIDH, TSH, CMP, FT4 #### [address] [address] Bili Total 0.4 mg/dL Normal 0.2-1.0 [facility] Comment on above: Result Comment: Use of this assay is not recommended for patients undergoing treatment with eltrombopag due to the potential for falsely elevated results. Performed By: #### L IPID, ADIFF, CBC, GFR, A1C, ANEU, VIDH, TSH, CMP, FT4 #### [place] [address] BUN/Creatinine Ratio 13 ratio Normal 7-27 [facility] Comment on above: Performed By: #### L IPID, ADIFF, CBC, GFR, A1C, ANEU, VIDH, TSH, CMP, FT4 #### [place] [address] Calcium [Mass/Vol] 9.4 mg/dL Normal 8.4-10.2 [facility] Comment on above: Performed By: #### L IPID, ADIFF, CBC, GFR, A1C, ANEU, VIDH, TSH, CMP, FT4 #### [place] [address] Chloride [Moles/Vol] 104 mmol/L Normal 98-107 [facility] Comment on above: Performed By: #### L IPID, ADIFF, CBC, GFR, A1C, ANEU, VIDH, TSH, CMP, FT4 #### [place] [address] CO2 [Moles/Vol] 30 mmol/L High 22-29 [facility] Comment on above: Performed By: #### L IPID, ADIFF, CBC, GFR, A1C, ANEU, VIDH, TSH, CMP, FT4 #### [place] [address] Creatinine [Mass/Vol] 1.05 mg/dL Normal 0.70-1.30 [facility] Comment on above: Result Comment: Test ing performed on Siemens Dimension EXL analyzer using a modified kinetic Chuy technique. Performed By: #### L IPID, ADIFF, CBC, GFR, A1C, ANEU, VIDH, TSH, CMP, FT4 #### [place] [address] Electrolyte Balance 6.0 mEq/L Normal 4.0-15.0 [facility] Comment on above: Performed By: #### L IPID, ADIFF, CBC, GFR, A1C, ANEU, VIDH, TSH, CMP, FT4 #### [place] [address] Globulin 3.6 G/dL Normal 1.5-3.8 [facility] Comment on above: Performed By: #### L IPID, ADIFF, CBC, GFR, A1C, ANEU, VIDH, TSH, CMP, FT4 #### [address] [address] Glucose [Mass/Vol] 129 mg/dL High 70-105 [facility] Comment on above: Performed By: #### L IPID, ADIFF, CBC, GFR, A1C, ANEU, VIDH, TSH, CMP, FT4 #### [address] [address] Potassium [Moles/Vol] 3.8 mmol/L Normal 3.5-5.1 [facility] Comment on above: Performed By: #### L IPID, ADIFF, CBC, GFR, A1C, ANEU, VIDH, TSH, CMP, FT4 #### [place] [address] Sodium [Moles/Vol] 140 mmol/L Normal 136-145 [facility] Comment on above: Performed By: #### L IPID, ADIFF, CBC, GFR, A1C, ANEU, VIDH, TSH, CMP, FT4 #### [address] [address] Total Protein 7.9 G/dL Normal 6.4-8.2 [facility] Comment on above: Performed By: #### L IPID, ADIFF, CBC, GFR, A1C, ANEU, VIDH, TSH, CMP, FT4 #### [address] [address] Urea nitrogen [Mass/Vol] 14 mg/dL Normal 7-18 [facility] Comment on above: Performed By: #### L IPID, ADIFF, CBC, GFR, A1C, ANEU, VIDH, TSH, CMP, FT4 #### [address] [address] FT4on 02-23-2025 Free T4 [Mass/Vol] 0.90 ng/dL Normal 0.76-1.46 [facility] Comment on above: Performed By: #### L IPID, ADIFF, CBC, GFR, A1C, ANEU, VIDH, TSH, CMP, FT4 #### [address] [address] LIPIDon 02-23-2025 Cholesterol [Mass/Vol] 138 mg/dL Normal 0-200 [facility] Comment on above: Result Comment: Chol esterol Reference Interval: Less than 200 Desirable 200-239 Borderline high risk 240 and above High risk Performed By: #### U A #### [address] [address] Cholesterol in HDL [Mass/Vol] 39 mg/dL Low 40-60 [facility] Comment on above: Performed By: #### U A #### [address] [address] Cholesterol in LDL [Mass/Vol] 74 mg/dL Normal 0-130 [facility] Comment on above: Performed By: #### U A #### [address] [address] Triglyceride [Mass/Vol] 124 mg/dL Normal 0-150 [facility] Comment on above: Result Comment: Trig lyceride Reference Interval: Less than 150 Normal 150-199 Borderline high risk 200-499 High risk 500 or higher Very high risk Performed By: #### U A #### [address] [address] TSHon 02-23-2025 TSH Qn 3.30 m[IU]/L Normal 0.36-3.74 [facility] Comment on above: Performed By: #### L IPID, ADIFF, CBC, GFR, A1C, ANEU, VIDH, TSH, CMP, FT4 #### [address] [address] VIDHon 02-23-2025 Vit. D 25-Hydroxy 58.9 ng/mL Normal [facility] Comment on above: Result Comment: Inte rpretive Values Based on Total 25(OH) Vitamin D: Deficient <20 ng/mL Insufficient 20 - <30 ng/mL Sufficient 30-100 ng/mL Performed By: #### U A #### [address] [address] Bedside Glucoseon 02-05-2025 FINGERSTICK GLU 129 mg/dL High 74-106 [facility] Comment on above: Result Comment: TANA DUENAS OF PATIENT CARE PER NURSING PROTOCOL Performed By: #### L 501.080 #### [facility] [address] [place], [place], [address] Cerv Spine 4 or 5 Viewson Cerv Spine 4 or 5 Views [facility] Imaging Services [address] [place] [address] Cerv Spine 4 or 5 Views MR#: [id number] Acct: [id number] Name: SELENALEONEL Curry Rep #: [id number] : 1985 M 39 From: Perez Florian PCP: PATRICIA Briscoe Status: [facility] Study: Cerv Spine 4 or 5 Views Date of Exam: 02/05/25 Exam# [id number] Ordering Dr: Marc Aquino MD EXAM: CERV SPINE 4 OR 5 VIEWS; O.R. FLUORO FOR C-ARM CLINICAL HISTORY: LT SIDE CERVICAL RADIOFREQUENCY ABLATION C4 C5 C6 C7 TECHNIQUE: Fluoroscopy images performed for cervical radiofrequency ablation from C4 through C7. 8 fluoroscopy images submitted. 6.93 mGy of dose administered. 35.3 seconds of fluoroscopy time FINDINGS: As above RAD/Cerv Spine 4 or 5 Views IMPRESSION: As above Reading Location: [id number] CC: MATH TEACHER-C Wanda Mata; Dr. Marc Aquino MD Oil Field Tester: Signed Normal [facility] Glucose measurement at [facility] deOrdered By: Marc Aquino on 02-05-2025 Glucose [Mass/Vol] 129 mg/dL High 74-106 [facility] Comment on above: MANAGEMENT OF PATIEN T CARE PER NURSING PROTOCOL MR/POSTOP.ANEon 02-05-2025 MR/POSTOP.ANE [facility] Medical Records Department [address] [place] [address] Anesthesia Postop Eval I 02/05/25 0804 MR#: [id number] Acct: [id number] Name: LEONEL LAKE Rep #: [id number] : 1985 39 From: Sherice Ortiz CRNA PCP: PATRICIA Briscoe Status:[place] [facility] [place] Race: C Location: [place] [address] Anesthesia: Postop Eval I Current Vital Signs Temperature: 97 F Pulse Rate: 72 Blood Pressure: 122/72 Respiratory Rate: 14 Pulse Ox: 93 Oxygen Delivery Method: Room Air Assessment Airway patent: Yes Spontaneous unlabored respirations: Yes Mental status: Awake nausea: No Vomiting: No Anesthesia Complication: No Fluid Hydration Crystalloid volume administer (ml): 250 Total IV fluid infused: 250 Progress Note Anesthesia document: Postop Eval 1 completed: Yes 02/05/2504 Date Sherice Ortiz ZIPPER SETTER Cosigner Signature: Date CC: Signed [facility] MR/[id number] 02-05-2025 [facility] Medical Records Department [address] [place] [address] Anesthesia Postop Eval II 02/05/25 1002 MR#: [id number] Acct: [id number] Name: LEONEL LAKE Rep #: [id number] : 1985 39 From: Hina Macedo PCP: PATRICIA Briscoe Status:DEP [facility] [place] Race: C Location: [facility] [place]esthesia Postop Eval I Sum Postop Eval Completion status Anesthesia document: Postop Eval 1 completed: Yes Anesthesia Postop Eval I Summary Anesthesia Postop Eval I Summary: Anesthesia Postop Eval I: Assessment Summary Airway patent Yes 02/05/25 08:04 [email or web address] [email or web address] Spontaneous unlabored Yes 02/05/25 08:04 ZIPPER SETTER.LMIL respirations Mental status Awake 02/05/25 08:04 ZIPPER SETTER.LMIL nausea No 02/05/25 08:04 ZIPPER SETTER.LMIL Vomiting No 02/05/25 08:04 ZIPPER SETTER.LMIL Anesthesia Postop Eval I: Fluid Summary Crystalloid volume administer 250 03/17/25 08:04 ZIPPER SETTER.LMIL (ml) Colloids volume administered ( ml) Blood Product volume administered (ml) Total IV fluid infused 250 02/05/25 08:04 ZIPPER SETTER.LMIL Anesthesia Postop Eval I: Summary Notes Anesthesia Complication No 02/05/25 08:04 ZIPPER SETTER.LMIL Anesthesia Complication Comment: Post-operative progress note Anesthesia: Postop Eval II Evaluation Mental status: Awake Pain Level: 3 nausea: No Vomiting: No 02/05/25 1002 Date Hina Sol Signature: Date CC: Signed [facility] O.R. Fluoro for C-Markell 01-20 O.R. Fluoro for C-Arm [facility] Imaging Services [address] [place] [id number] O.R. Fluoro for C-Arm MR#: [id number] Acct: [id number] Name: LEONEL LAKE Rep #: [id number] : 1985 M 39 From: Perez Florian PCP: PAUL BriscoeC Status: [facility] Study: O.R. Fluoro for C-Arm Date of Exam: 02/05/25 Exam# [id number] Ordering Dr: Marc Aquino MD EXAM: CERV SPINE 4 OR 5 VIEWS; O.R. FLUORO FOR C-ARM CLINICAL HISTORY: LT SIDE CERVICAL RADIOFREQUENCY ABLATION C4 C5 C6 C7 TECHNIQUE: Fluoroscopy images performed for cervical radiofrequency ablation from C4 through C7. 8 fluoroscopy images submitted. 6.93 mGy of dose administered. 35.3 seconds of fluoroscopy time FINDINGS: As above RAD/O.R. Fluoro for C-Arm IMPRESSION: As above Reading Location: [place] CC: MATH TEACHER-C Wanda Mata; Dr. Marc Aquino MD Oil Field Tester: Signed [facility] Operative Reporton 5 Operative Report [facility] Medical Records Department [address] [place] [address] Operative Report 02/05/25 0757 MR#: [id number] Acct: [id number] Name: LEONEL LAKE Rep #: [id number] : 1985 39 From: Marc Aquino MD PCP: Wanda Mata NP-C Status:[facility] [place]: [place] [address] Operative Report (Standard) Operative Information Date of Procedure: 02/05/25 Pre-Operative Diagnosis: 1 Post-Operative Diagnosis: 1 Surgery/Procedure Performed: 1 operations recruiter: No Type of Anesthesia: Local MAC RN Documented Start/Stop Times: Operation Date: 02/05/25 07:30 Case Time Into Pre-Op 02/05/25 05:45 Out of Pre-Op 02/05/25 07:29 Anesthesia Start 02/05/25 07:30 Into Room 02/05/25 07:30 Procedure Start 02/05/25 07:45 Procedure End 02/05/25 07:54 Procedure Start Time: 07:58 Procedure Stop Time: 07:58 Select all DRAINS/GRAFTS/IMPLANTS that apply: None Estimated Blood Loss: 1 Specimen collected: No Description of surgery: PREOPERATIVE DIAGNOSIS: Cervical spondylosis, cervical degenerative disc disease, cervical facet arthropathy POSTOPERATIVE DIAGNOSIS: Cervical spondylosis, cervical degenerative disc disease, cervical facet arthropathy PROCEDURE PERFORMED: Left-sided radiofrequency ablation of the medial branch at C4, C5, C6, and C7. ANESTHESIA: MAC. BLOOD LOSS: Minimal. COMPLICATIONS: None. DESCRIPTION OF PROCEDURE: History and physical of today was reviewed. Risks and benefits of the procedure were explained. The patient understood and agreed to proceed. Informed consent was obtained. IV inserted per routine protocol. The patient was taken to the operating room and placed in the prone position with a pillow positioned underneath the chest. The neck area was prepped and draped in a sterile fashion using iodine x3. Under fluoroscopy guidance on an AP view, the C4 through C7 vertebral bodies were visualized. The skin and subcutaneous tissue was anesthetized with approximately 10 mL of 1% lidocaine using a 25-gauge regular needle. Under direct visualization on fluoroscopy on a lateral view, using a 21-gauge 10-cm with a 10-mm curved active-tip radiofrequency ablation needle, the needle was passed through the skin. The tip of the needle was maneuvered and directed towards the epiphyseal junction of each corresponding vertebra, starting on the left C4, ending on the left C7, passing through the C5 and C6. Once the tip of the needle was at the vicinity of the medial branch and at the middle of the trapezoid on the lateral view, the stylette of each needle was then removed. After negative aspiration of blood or CSF and confirmation on AP, oblique as well as lateral view, radiofrequency ablation probe was then inserted at each level. Impedance was then recorded at C4 to be 339 ohm, at C5 to be 257 ohm, at C6 to be 260 ohm, and at C7 to be 272 ohm. Motor-evoked potential was then initiated to 1.5 volt without any motor response to each corresponding level or the left arm. The probe was then removed intact and a total of 4 mL of preservative-free 1% lidocaine was injected in divided doses between those four levels after negative aspiration of blood or CSF. After repeated confirmation, the radiofrequency ablation probe was then inserted and after repeated confirmation on AP, oblique as well as lateral view, radiofrequency ablation was then initiated to approximately 80 degree Celsius for 60 second at each level. Once concluded, the probe was then removed intact. A total of 4 mL of preservative-free 0.25% Marcaine with 40 mg of Depo-Medrol was injected in divided doses between those four levels. The needles were then removed intact. The patient experienced no sign or symptoms of intrathecal or intravascular injection. The patient experienced no paresthesia. The procedure was completed without any apparent difficulty or any complications. The patient appeared to tolerate it well. Sensory as well as motor exam was unchanged from prior to the procedure. ASSESSMENT AND PLAN: This is a 39-year-old male with cervical spondylosis, cervical degenerative disc disease, cervical facet arthropathy status post left-sided cervical radiofrequency ablation of the medial branch C4- C7, patient will continue his current medications, patient will follow up in approximately 2 weeks for reevaluation. Surgical Findings: 0 Complications Complications: No Admit VTE Documentation VTE Present on Admission: No VTE Pharm Prophylaxis ordered?: No 02/05/25 0759 Cosigner Signature (if applicable): CC: PATRICIA Mata; Dr. Marc Aquino MD Signed [facility] ED Provider Noteon ED Provider Note EMERGENCY DEPARTMENT ENCOUNTER Pt Name: Leonel Lake Birthdate 1985 Date of evaluation: 09/23/2024 ED Provider: Ky Hurtado MD CHIEF COMPLAINT Chief Complaint Patient presents with Hand Pain Denies injury HISTORY OF PRESENT ILLNESS I wore appropriate PPE for the entirety of this encounter. HPI Leonel Lake is a 38 y.o. male who presents to the emergency department complaining of pain to his left long finger. He states that about a month ago he awoke with pain to his left long finger PIP joint. He does not recall any injury. There is no strain. He does not know why he is having pain in it. He complains of swelling to the joint. He has a history of oyz-xeejtyd-keughoqsb diabetes. He has schizophrenia. There is no history of gout or other inflammatory arthritis. He is right-hand dominant. Nursing Notes were reviewed. Limitations to history: None Outside historians: None REVIEW OF SYSTEMS Review of Systems Constitutional: Negative for chills, fatigue and fever. Musculoskeletal: Positive for arthralgias and joint swelling. Negative for myalgias. Skin: Negative for rash and wound. Neurological: Negative for weakness and numbness. Hematological: Does not bruise/bleed easily. 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 Dunbar Psoriasis 1999 Dr. Rabago Schizophrenia ([facility]) 2007 Type 2 diabetes mellitus ([facility]) 12/2019 SURGICAL HISTORY Past Surgical History: Procedure Laterality Date CHOLECYSTECTOMY 09/11/2021 Dr. Doran COLONOSCOPY 2013 [place] TONSILLECTOMY (HISTORICAL) UPPER GASTROINTESTINAL ENDOSCOPY 2013 Dr Dunbar CURRENT MEDICATIONS Previous Medications ATORVASTATIN (LIPITOR) 20 MG TABLET 20 mg. BENZONATATE (TESSALON) 100 MG CAPSULE Take 100 mg by mouth 3 times daily as needed for cough. BENZTROPINE (COGENTIN) 2 MG TABLET CHOLECALCIFEROL (VITAMIN D-3) 125 MCG (5000 UT) CAPSULE Take 125 mcg by mouth daily. CLINDAMYCIN (CLEOCIN) 300 MG CAPSULE take 1 capsule by mouth three times a day for 10 days (TAKE WITH A PROBIOTIC) CONTINUOUS GLUCOSE SENSOR (FREESTYLE GOGO 2 SENSOR) [facility] apply 1 SENSOR TO BACK OF ARM ONCE EVERY 14 DAYS TO MONITOR GLUCOSE DAPAGLIFLOZIN (FARXIGA) 5 MG TABLET Take by mouth. ESCITALOPRAM (LEXAPRO) 10 MG TABLET 10 mg. ETANERCEPT (ENBREL) 50 MG/ML INJECTION Inject 50 mg under the skin. FARXIGA 10 MG TABLET Take 10 mg by mouth daily. FENOFIBRATE (TRICOR) 145 MG TABLET Take 145 mg by mouth daily. FLUTICASONE (FLONASE ALLERGY RELIEF) 50 MCG/ACT NASAL SPRAY Dose = 1 spray(s), Nostril, each, qDay, # 16 gram(s), 11 Refill(s), Pharmacy: [id number], Acute sinusitis, 177.8, cm, 04/05/24 14:15:00 EDT, Height, kg, 04/05/24 14:16:00 EDT, Dosing Weight GABAPENTIN (NEURONTIN) 400 MG CAPSULE 400 mg. GLIMEPIRIDE (AMARYL) 2 MG TABLET See Instructions, Take 2 tablets (4mg) by mouth with breakfast and 1 tablet (2mg) with dinner, # 90 tab(s), 3 Refill(s), [facility], 179.6, cm, 04/13/24 10:38:00 EDT, Height, kg, 04/13/24 10:38:00 EDT, Dosing Weight HALOPERIDOL DECANOATE (HALDOL DECANOATE) 100 MG/ML INJECTION Inject 125 mg into the shoulder, thigh, or buttocks every 30 (thirty) days. HYDROXYZINE PAMOATE (VISTARIL) 50 MG CAPSULE take 1 capsule by mouth twice a day if needed METFORMIN (GLUCOPHAGE) 500 MG TABLET Take by mouth. METOPROLOL SUCCINATE XL (TOPROL-XL) 25 MG 24 HR TABLET Take 25 mg by mouth. MOBIC 15 MG TABLET 15 mg. OMEPRAZOLE (PRILOSEC) [address] CAPSULE Take 40 mg by mouth daily. SKYRIZI PEN 150 MG/ML SOLUTION AUTO-INJECTOR TIZANIDINE (ZANAFLEX) 4 MG TABLET 4 mg. ALLERGIES Penicillins, Prednisone, and Seroquel [quetiapine] FAMILY HISTORY Family History Problem Relation Name Age of Onset Asthma Mother Stewart No Known Problems Father not close Arthritis Mother Stewart No Known Problems Brother Corey No Known Problems Paternal Grandmother Hypotension Maternal Grandfather Stroke Maternal Grandfather Cancer Maternal Grandmother No Known Problems Paternal Grandfather SOCIAL HISTORY Social History Socioeconomic History Marital status: Single Tobacco Use Smoking status: Never Smokeless tobacco: Never Substance and Sexual Activity Alcohol use: Not Currently Drug use: Never Social History Narrative Single, lives with Mother, Stewart. No children. NS or ETOH use. Disabled since 2007 due to mental health ds Social Drivers of Health Financial Resource Strain: Medium Risk (06/11/2021) Received from [facility] Overall Financial Resource Strain (CARDIA) Difficulty of Paying Living Expenses: Somewhat hard Food Insecurity: No Food Insecurity (06/11/2021) Received from [facility] Hunger Vi (more content not included)... Normal [facility] XR Hand - left 3 Viewson No acute osseous abnormality left hand. Report Dictated on Electronically Signed By: Davin Cunningham MD Electronically Signed Date/Time: 09/23/2024 10:58 AM EDT [facility] Patient Name: LEONEL LAKE : 1985 Exam Date/Time: 09/23/2024 10:58 Procedure: XR HAND 3+ VIEWS LEFT Ordering Provider: HURTADO MICHAEL Reason For Exam: pain to left long finger PIP joint LEFT HAND: CLINICAL INDICATION: Pain. TECHNIQUE: PA, Lat, and oblique COMPARISON: 08/27/2023. FINDINGS: There is no fracture or dislocation. No arthritic change is identified. No bone lesion is identified. There is no soft tissue abnormality. [facility] Davin Cunningham MD - 09/23/2024 Patient Name: LEONEL LAKE : 1985 Exam Date/Time: 09/23/2024 10:58 Procedure: XR HAND 3+ VIEWS LEFT Ordering Provider: HURTADO MICHAEL Reason For Exam: pain to left long finger PIP joint LEFT HAND: CLINICAL INDICATION: Pain. TECHNIQUE: PA, Lat, and oblique COMPARISON: 08/27/2023. FINDINGS: There is no fracture or dislocation. No arthritic change is identified. No bone lesion is identified. There is no soft tissue abnormality. IMPRESSION: No acute osseous abnormality left hand. Report Dictated on Electronically Signed By: Davin Cunningham MD Electronically Signed Date/Time: 09/23/2024 10:58 AM EDT [employer] Radiology Study observation (narrative) [employer] XR Hand - left 3 ViewsOrdere d By: Davin Cunningham on 09-23-2024 [employer] Work Phone: Bedside Glucoseon 09-11-2024 FINGERSTICK GLU 119 mg/dL High 74-106 [facility] Comment on above: Result Comment: TANA DUENAS OF PATIENT CARE PER NURSING PROTOCOL Performed By: #### L 501.080 #### [facility] [address] [facility] [place], [place], [address] OR-Steroid Inj/Cer Thor/1st Marcelo 09-11-2024 OR-Steroid Inj/Cer Thor/1st L [facility] Services [address] [place], [place] [address] OR-Steroid Inj/Cer Thor/1st L MR#: [id number] Acct: [id number] Name: LEONEL LAKE Rep #: [id number] : 1985 M 38 From: Edgar stokes MD PCP: Wanda Mata, MATH TEACHER-C Status: [facility] Study: OR-Steroid Inj/Cer Thor/1st L Date of Exam: Exam# [id number] [place]: [place] [id number] STUDY: CERVICAL STEROID INJECTION REASON FOR EXAM: Male, 38 years old. CERVICAL EPIDURAL FLUOROSCOPY TIME (if supplied): ( 7 seconds ) minutes/seconds. 3 images were submitted. FINDINGS: Intraoperative fluoroscopic services provided for cervical epidural. RAD/OR-Steroid Inj/Cer Thor/1st L IMPRESSION: Intraoperative fluoroscopic services provided for cervical epidural. Electronically Signed: Edgar Barnes MD at 8:59 EDT , CC: PATRICIA Mata; Dr. Marc Aquino MD Oil Field Tester: Signed Normal [facility] Operative Reporton 4 Operative Report [facility] Medical Records Department [address] [place] [address] Operative Report 09/11/24 1135 MR#: [id number] Acct: [id number] Name: LEONEL LAKE Rep #: [id number] : 1985 38 From: Marc Aquino MD PCP: PATRICIA Briscoe Status:[facility] [place] [facility] [place] Operation Date of Procedure: 09/11/24 Description of Surgical Findings:: PREOPERATIVE DIAGNOSES: Cervical radiculopathy, cervical degenerative disc disease, cervical spinal stenosis POSTOPERATIVE DIAGNOSES:Cervical radiculopathy, cervical degenerative disc disease, cervical spinal stenosis PROCEDURE PERFORMED: Cervical epidural steroid injection, interlaminar at C7-T1 under fluoroscopy guidance. ANESTHESIA: Local. BLOOD LOSS: Minimal. COMPLICATIONS: None. DESCRIPTION OF PROCEDURE: History and physical of today was reviewed. Risks and benefits of the procedure were explained. The patient understood and agreed to proceed. Informed consent was obtained. IV inserted per routine protocol. The patient was taken to the operating room and placed in the prone position with a pillow positioned underneath the chest. The neck area was prepped and draped in a sterile fashion using iodine x3. Under fluoroscopy guidance on an AP view, the C7-T1 interlaminar space was identified. The skin and subcutaneous tissue was anesthetized with approximately 3 mL of 1% lidocaine using a 25-gauge regular needle. Under direct visualization on fluoroscopy, on AP view, using a 20-gauge 2-1/2-inch Tuohy needle, the needle was advanced via the skin. The tip of the needle was maneuvered and directed towards the interlaminar space at C7-T1. Loss of resistance technique was carried to air. Loss of resistance technique was encountered. Once encountered, after negative aspiration for blood and CSF, a total of 1 mL of contrast was injected to confirm correct placement of the needle as well as cephalocaudal spread of the contrast. Confirmation was obtained on AP as well as lateral view. After repeated negative aspiration and confirmation, a total of 3 mL of preservative-free normal saline and 80 mg of Depo-Medrol was injected easily. The needle was then removed intact. The patient experienced no sign or symptoms of intrathecal or intravascular injection. The patient experienced no paresthesia. The procedure was completed without any apparent difficulty or any complications. The patient appeared to tolerate it well. ASSESSMENT AND PLAN: This is a 38-year-old male with cervical radiculopathy, cervical degenerative disc disease, cervical spinal stenosis status post cervical epidural steroid injection interlaminar at C7-T1 under fluoroscopic guidance, patient will continue his current medications, patient will follow in approximately 2 weeks for reevaluation. 09/11/24 1136 Cosigner Signature (if applicable): CC: PATRICIA Mata; Dr. Marc Aquino MD Signed Normal [facility] .Auto Diffon 06-29-2024 Basophil, Absolute 0.1 10 3/mcL Normal 0.0-0.2 [facility] ([place]) Comment on above: Performed By: #### C MP, LIP, ANEU, GFR, ADIFF, CBC, YAO RICHARD ####[address] [place], [place] [address] Basophils/100 WBC (Bld) 1.2 % Normal 0.0-2.5 [facility] ([place]) Comment on above: Performed By: #### C MP, LIP, ANEU, GFR, ADIFF, CBC, YAO RICHARD ####[address] [place], [place] [address] Eosinophil, Absolute 0.8 10 3/mcL High 0.0-0.4 [facility] ([place]) Comment on above: Performed By: #### C MP, LIP, ANEU, GFR, ADIFF, CBC, TROPHSYAO ####[address] [place], [place] [address] Eosinophils/100 WBC (Bld) 11.1 % High 0.0-7.0 [facility] ([place]) Comment on above: Performed By: #### C MP, LIP, ANEU, GFR, ADIFF, CBC, TROPHYAO Jj ####[address] [place], [place] [address] Lymphocyte, Absolute 1.7 10 3/mcL Normal 0.8-3.9 [facility] ([place]) Comment on above: Performed By: #### C MP, LIP, ANEU, GFR, ADIFF, CBC, TROPHSYAO ####[address] [place], [place] [address] Lymphocytes/100 WBC (Bld) 22.5 % Normal 10.0-50.0 [facility] ([place]) Comment on above: Performed By: #### C MP, LIP, ANEU, GFR, ADIFF, CBC, TROPHSYAO ####[address] [place], [place] [address] Monocyte, Absolute 0.7 10 3/mcL Normal 0.2-1.0 [facility] ([place]) Comment on above: Performed By: #### C MP, LIP, ANEU, GFR, ADIFF, CBC, TROPHYAO Jj ####[address] [place], [place] [address] Monocytes/100 WBC (Bld) 8.9 % Normal 1.7-13.0 [facility] ([place]) Comment on above: Performed By: #### C MP, LIP, ANEU, GFR, ADIFF, CBC, TROPHS, YAO ####[address] [place], [place] [address] Neutrophils/100 WBC (Bld) 56.3 % Normal 37.0-80.0 [facility] ([place]) Comment on above: Performed By: #### C MP, LIP, ANEU, GFR, ADIFF, CBCHILARY MDW ####[address] [place], [place] [address] .GFRon 06-29-2024 GFR 99 ml/min/1.73sqm Normal [facility] ([place]) Comment on above: Result Comment: GFR Population mean for , Non- Americans Ages 20-29 = 116 mL/min/1.73 sq.m. Ages 30-39 = 107 mL/min/1.73 sq.m. Ages 40-49 = 99 mL/min/1.73 sq.m. Ages 50-59 = 93 mL/min/1.73 sq.m. Ages 60-69 = 85 mL/min/1.73 sq.m. Ages 70+ = 75 mL/min/1.73 sq.m. Chronic Kidney Disease: Less than 60 mL/min/1.73 square meters End Stage Renal Disease: Less than 15 mL/min/1.73 square meters Performed By: #### C MP, LIP, ANEU, GFR, ADIFF, HILARY HAQ MDW ####[address] [place], [place] [address] GFR Non- 81 ml/min/1.73sqm Normal [facility] ([place]) Comment on above: Result Comment: GFR Population mean for , Non- Americans Ages 20-29 = 116 mL/min/1.73 sq.m. Ages 30-39 = 107 mL/min/1.73 sq.m. Ages 40-49 = 99 mL/min/1.73 sq.m. Ages 50-59 = 93 mL/min/1.73 sq.m. Ages 60-69 = 85 mL/min/1.73 sq.m. Ages 70+ = 75 mL/min/1.73 sq.m. Chronic Kidney Disease: Less than 60 mL/min/1.73 square meters End Stage Renal Disease: Less than 15 mL/min/1.73 square meters Performed By: #### C MP, LIP, ANEU, GFR, ADIFF, CBC, YAO RICHARD ####[address] [address] .MDWon 06-29-2024 Monocyte Distribution Width 20.31 High 0.00-20.00 [facility] ([place]) Comment on above: Result Comment: For adults in ED, MDW>20.0 may be associated with a higher risk of sepsis during the first 12hrs of hospital admission Performed By: #### C MP, LIP, ANEU, GFR, ADIFF, HILARY HAQ MDW ####[address] [address] .NEUABSon 06-29-2024 Neutrophil, Absolute 4.2 10 3/mcL Normal 2.9-6.2 [facility] ([place]) Comment on above: Performed By: #### C MP, LIP, ANEU, GFR, ADIFF, HILARY HAQ MDW ####[address] [address] CBCon 06-29-2024 Erythrocyte distribution width (RBC) [Ratio] 13.9 % Normal 11.5-14.5 [facility] ([place]) Comment on above: Performed By: #### C MP, LIP, ANEU, GFR, ADIFF, HILARY HAQ MDW #### [address] [address] Hematocrit (Bld) [Volume fraction] 43.3 % Normal 42.0-52.0 [facility] ([place]) Comment on above: Performed By: #### C MP, LIP, ANEU, GFR, ADIFF, HILARY HAQ MDW #### [address] [address] Hgb 15.2 G/dL Normal 14.0-18.0 [facility] ([place]) Comment on above: Performed By: #### C MP, LIP, ANEU, GFR, ADIFF, HILARY HAQ MDW #### [address] [address] MCH (RBC) [Entitic mass] 29.3 pg Normal 27.0-31.2 [facility] ([place] Comment on above: Performed By: #### C MP, LIP, ANEU, GFR, ADIFF, CBC, YAO RICHARD #### [address] [address] MCHC 35.2 G/dL Normal 31.8-35.4 [facility] ([place] Comment on above: Performed By: #### C MP, LIP, ANEU, GFR, ADIFF, CBC, YAO RICHARD #### [address] [address] MCV (RBC) [Entitic vol] 83.3 fL Normal 80.0-94.0 [facility] ([place] Comment on above: Performed By: #### C MP, LIP, ANEU, GFR, ADIFF, CBC, YAO RICHARD #### [address] [address] Platelet 224 10 3/mcL Normal 130-400 [facility] ([place] Comment on above: Performed By: #### C MP, LIP, ANEU, GFR, ADIFF, CBC, YAO RICHARD #### [address] [address] Platelet mean volume (Bld) [Entitic vol] 7.2 fL Low 7.4-10.4 [facility] ([place] Comment on above: Performed By: #### C MP, LIP, ANEU, GFR, ADIFF, CBC, YAO RICHARD #### [address] [address] RBC 5.19 10 6/mcL Normal 4.04-6.13 [facility] ([place] Comment on above: Performed By: #### C MP, LIP, ANEU, GFR, ADIFF, CBC, YAO RICHARD #### [address] [address] WBC 7.4 10 3/mcL Normal 4.6-10.8 [facility] ([place] Comment on above: Performed By: #### C MP, LIP, ANEU, GFR, ADIFF, CBC, YAO RICHARD #### [place] [address] CMPon 06-29-2024 Albumin Level 3.8 G/dL Normal 3.5-5.0 [facility] ([place] Comment on above: Performed By: #### C MP, LIP, ANEU, GFR, ADIFF, CBC, YAO RICHARD ####[address] [place], [place] [address] Albumin/Globulin [Mass ratio] 1.2 {ratio} Normal 1.1-2.5 [facility] ([place] Comment on above: Performed By: #### C MP, LIP, ANEU, GFR, ADIFF, CBC, YAO RICHARD ####[address] [place], [place] [address] ALP [Catalytic activity/Vol] 96 U/L Normal 40-135 [facility] ([place] Comment on above: Performed By: #### C MP, LIP, ANEU, GFR, ADIFF, CBC, YAO RICHARD ####[address] [place], [place] [address] ALT [Catalytic activity/Vol] 32 U/L Normal 16-63 [facility] ([place] Comment on above: Performed By: #### C MP, LIP, ANEU, GFR, ADIFF, HILARY HAQ MDW ####[address] [place], [place] [address] AST [Catalytic activity/Vol] 15 U/L Normal 10-40 [facility] ([place] Comment on above: Performed By: #### C MP, LIP, ANEU, GFR, ADIFF, HILARY HAQ MDW ####[address] [place], [place] [address] Bili Total 0.4 mg/dL Normal 0.2-1.0 [facility] ([place] Comment on above: Result Comment: Use of this assay is not recommended for patients undergoing treatment with eltrombopag due to the potential for falsely elevated results. Performed By: #### C MP, LIP, ANEU, GFR, ADIFF, CBC, YAO RICHARD ####[address] [place], [place] [address] BUN/Creatinine Ratio 15 ratio Normal 7-27 [facility] ([place] Comment on above: Performed By: #### C MP, LIP, ANEU, GFR, ADIFF, CBC, YAO RICHARD ####[address] [place], [place] [address] Calcium [Mass/Vol] 8.6 mg/dL Normal 8.4-10.2 [facility] ([place]) Comment on above: Performed By: #### C MP, LIP, ANEU, GFR, ADIFF, CBC, YAO RICHARD ####[address] [place], [place] [address] Chloride [Moles/Vol] 103 mmol/L Normal 98-107 [facility] ([place] Comment on above: Performed By: #### C MP, LIP, ANEU, GFR, ADIFF, CBC, YAO RICHARD ####[address] [place], [place] [address] CO2 [Moles/Vol] 26 mmol/L Normal 22-29 [facility] ([place] Comment on above: Performed By: #### C MP, LIP, ANEU, GFR, ADIFF, HILARY HAQ MDW ####[address] [place], [place] [address] Creatinine [Mass/Vol] 1.02 mg/dL Normal 0.70-1.30 [facility] ([place]) Comment on above: Performed By: #### C MP, LIP, ANEU, GFR, ADIFF, HILARY HAQ MDW ####[address] [place], [place] [address] Electrolyte Balance 10.0 mEq/L Normal 4.0-15.0 [facility] ([place]) Comment on above: Performed By: #### C MP, LIP, ANEU, GFR, ADIFF, CBCHILARY MDW ####[address] [place], [place] [address] Globulin 3.2 G/dL Normal [facility] ([place] Comment on above: Performed By: #### C MP, LIP, ANEU, GFR, ADIFF, CBC, YAO RICHARD ####[address] [place], [place] [address] Glucose [Mass/Vol] 143 mg/dL High 70-105 [facility] ([place] Comment on above: Performed By: #### C MP, LIP, ANEU, GFR, ADIFF, CBC, YAO RICHARD ####[address] [place], [place] [address] Potassium [Moles/Vol] 3.6 mmol/L Normal 3.5-5.1 [facility] ([place] Comment on above: Performed By: #### C MP, LIP, ANEU, GFR, ADIFF, CBC, YAO RICHARD ####[address] [place], [place] [address] Sodium [Moles/Vol] 139 mmol/L Normal 136-145 [facility] ([place] Comment on above: Performed By: #### C MP, LIP, ANEU, GFR, ADIFF, CBC, YAO RICHARD ####[address] [place], [place] [address] Total Protein 7.0 G/dL Normal 6.4-8.2 [facility] ([place] Comment on above: Performed By: #### C MP, LIP, ANEU, GFR, ADIFF, HILARY HAQ MDW ####[address] [place], [place] [address] Urea nitrogen [Mass/Vol] 15 mg/dL Normal 7-18 [facility] ([place] Comment on above: Performed By: #### C MP, LIP, ANEU, GFR, ADIFF, CBCHILARY MDW ####[address] [place], [place] [address] CT ABD/PELVIS W/ IV CONTRAST ONLYon 06-29-2024 CT ABD/PELVIS W/ IV CONTRAST ONLY ORIGINAL EXAMINATION: CT OF THE ABDOMEN AND PELVIS WITH CONTRAST06/29/2024 5:[address] ABDOMEN/PELVIS WITH CONTRAST TECHNIQUE: CT of the abdomen and pelvis was performed with the administration of intravenous contrast. Multiplanar reformatted images are provided for review. Automated exposure control, iterative reconstruction, and/or weight based adjustment of the mA/kV was utilized to reduce the radiation dose to as low as reasonably achievable. COMPARISON: CT abdomen pelvis December 17, 2023 HISTORY: ORDERING SYSTEM PROVIDED HISTORY: Reason for Exam: abd pain luq x2 days. nausea. FINDINGS: The size, density, and morphology of the liver, spleen, adrenals, kidneys, pancreas and unopacified loops of bowel are unremarkable. The opacified aorta demonstrates normal size and morphology without aneurysmal dilation or dissection. There are no enlarged lymph nodes by pathologic size criteria. Appendix is normal. There is no free fluid within the pelvis. The bladder and pelvic organs have an unremarkable CT appearance. The osseous structures are without gross lytic or sclerotic lesion. The lung bases are clear. IMPRESSION: No acute intra-abdominal intrapelvic pathology. Interpreted by: Darien Gaviria MD Preliminary Report By: Darien Gaviria MD Electronically signed By Darien Gaviria MD Dictated Date: 06/29/2024 6:02:20 PM Prelim Date: 06/29/2024 6:13:22 PM Sign Date: 06/29/2024 6:13:22 PM Ordering Provider: GILMA Mo [facility] ([place]) LABORATORYOrdered By: SYSTEM SYSTEM on 06-29-2024 Albumin BCP dye [Mass/Vol] 3.8 G/dL Normal 3.5 - 5.0 G/dL AO ADM SS Albumin/Globulin [Mass ratio] 1.2 {ratio} Normal 1.1 - 2.5 ratio AO ADM SS ALP [Catalytic activity/Vol] 96 U/L Normal 40 - 135 U/L AO ADM SS ALT With P-5'-P [Catalytic activity/Vol] 32 U/L Normal 16 - 63 U/L AO ADM SS AST With P-5'-P [Catalytic activity/Vol] 15 U/L Normal 10 - 40 U/L AO ADM SS Basophil, Absolute 0.1 103/mcL Normal 0.0 - 0.2 10^3/mcL AO Workflow SS Basophils/100 WBC (Bld) 1.2 % Normal 0.0 - 2.5 % AO Workflow SS Bilirubin [Mass/Vol] 0.4 mg/dL Normal 0.2 - 1 .0 mg/dL AO ADM SS Comment on above: Interpretive Data: U se of this assay is not recommended for patients undergoing treatment with eltrombopag due to the potential for falsely elevated results. Calcium [Mass/Vol] 8.6 mg/dL Normal 8.4 - 10. 2 mg/dL AO ADM SS Chloride [Moles/Vol] 103 mmol/L Normal 98 - 10 7 mmol/L AO ADM SS CO2 [Moles/Vol] 26 mmol/L Normal 22 - 29 mmol/L AO ADM SS Creatinine [Mass/Vol] 1.02 mg/dL Normal 0.70 - 1.30 mg/dL AO ADM SS Electrolyte Balance 10.0 mEq/L Normal 4.0 - 15 .0 mEq/L AO ADM SS Eosinophil, Absolute 0.8 103/mcL High 0.0 - 0 .4 10^3/mcL AO Workflow SS Eosinophils/100 WBC (Bld) 11.1 % High 0.0 - 7.0 % AO Workflow SS Erythrocyte distribution width (RBC) [Ratio] 13.9 % Normal 11.5 - 14.5 % AO Workflow SS GFR/1.73 sq M.predicted among blacks MDRD (S/P/Bld) [Vol rate/Area] 99 ml/min/1.73sqm Invalid Interpretation Code AO Chemistry S Comment on above: Interpretive Data: GFR Population mean for , Non- Americans Ages 20-29 = 116 mL/min/1.73 sq.m. Ages 30-39 = 107 mL/min/1.73 sq.m. Ages 40-49 = 99 mL/min/1.73 sq.m. Ages 50-59 = 93 mL/min/1.73 sq.m. Ages 60-69 = 85 mL/min/1.73 sq.m. Ages 70+ = 75 mL/min/1.73 sq.m. Chronic Kidney Disease: Less than 60 mL/min/1.73 square meters End Stage Renal Disease: Less than 15 mL/min/1.73 square meters GFR/1.73 sq M.predicted among non-blacks MDRD (S/P/Bld) [Vol rate/Area] 81 ml/min/1.73sqm Invalid Interpretation Code AO Chemistry S Comment on above: Interpretive Data: GFR Population mean for , Non- Americans Ages 20-29 = 116 mL/min/1.73 sq.m. Ages 30-39 = 107 mL/min/1.73 sq.m. Ages 40-49 = 99 mL/min/1.73 sq.m. Ages 50-59 = 93 mL/min/1.73 sq.m. Ages 60-69 = 85 mL/min/1.73 sq.m. Ages 70+ = 75 mL/min/1.73 sq.m. Chronic Kidney Disease: Less than 60 mL/min/1.73 square meters End Stage Renal Disease: Less than 15 mL/min/1.73 square meters Globulin 3.2 G/dL Invalid Interpretation Code AO ADM SS Glucose [Mass/Vol] 143 mg/dL High 70 - 105 mg/dL AO ADM SS Hematocrit (Bld) [Volume fraction] 43.3 % Normal 42.0 - 52.0 % AO Workflow SS Hemoglobin (Bld) [Mass/Vol] 15.2 G/dL Normal 14.0 - 18.0 G/dL AO Workflow SS Lipase [Catalytic activity/Vol] 45 U/L Normal 16 - 77 U/L AO ADM SS Lymphocyte, Absolute 1.7 103/mcL Normal 0.8 - 3 .9 10^3/mcL AO Workflow SS Lymphocytes/100 WBC (Bld) 22.5 % Normal 10.0 - 50.0 % AO Workflow SS MCH (RBC) [Entitic mass] 29.3 pg Normal 27.0 - 31.2 pg AO Workflow SS MCHC 35.2 G/dL Normal 31.8 - 35.4 G/dL AO Workflow SS MCV (RBC) [Entitic vol] 83.3 fL Normal 80.0 - 94.0 fL AO Workflow SS Monocyte distribution width Auto (Bld) [Entitic vol] 20.31 1 High 0.00 - 20.00 AO Workflow SS Comment on above: Result Comment: For adults in ED, MDW>20.0 may be associated with a higher risk of sepsis during the first 12hrs of hospital admission Monocyte, Absolute 0.7 103/mcL Normal 0.2 - 1.0 10^3/mcL AO Workflow SS Monocytes/100 WBC (Bld) 8.9 % Normal 1.7 - 13.0 % AO Workflow SS Neutrophil, Absolute 4.2 103/mcL Normal 2.9 - 6 .2 10^3/mcL AO Workflow SS Neutrophils/100 WBC (Bld) 56.3 % Normal 37.0 - 80.0 % AO Workflow SS Platelet mean volume (Bld) [Entitic vol] 7.2 fL Low 7.4 - 10.4 fL AO Workflow SS Platelets (Bld) [#/Vol] 224 103/mcL Normal 130 - 400 10^3/mcL AO Workflow SS Potassium [Moles/Vol] 3.6 mmol/L Normal 3.5 - 5.1 mmol/L AO ADM SS Protein [Mass/Vol] 7.0 G/dL Normal 6.4 - 8.2 G/dL AO ADM SS RBC (Bld) [#/Vol] 5.19 106/mcL Normal 4.04 - 6.1 3 10^6/mcL AO Workflow SS Sodium [Moles/Vol] 139 mmol/L Normal 136 - 145 mmol/L AO ADM SS Troponin I.cardiac DL <= 0.01 ng/mL [Mass/Vol] ng/L Normal 0 - 76 ng/L AO ADM SS Comment on above: Interpretive Data: H igh Sensitive Troponin I Reference Ranges: Female: 0-51 ng/L Male: 0-76 ng/L Testing performed on [employer] using a homogeneous sandwich chemiluminescent immunoassay based on [employer] technology. Urea nitrogen [Mass/Vol] 15 mg/dL Normal 7 - 18 mg/dL AO ADM SS Urea nitrogen/Creatinine [Mass ratio] 15 ratio Normal 7 - 27 ratio AO ADM SS WBC (Bld) [#/Vol] 7.4 103/mcL Normal 4.6 - 10.8 10^3/mcL AO Workflow SS LABORATORYOrdered By: Antoni Mckeon on 06-29-2024 Appearance (U) Clear (06/29/24 4:45 PM) Normal Clear AO Auto Urine SS Bilirubin Ql (U) Negative (06/29/24 4:45 PM) Normal Negative AO Auto Urine SS Color (U) Yellow (06/29/24 4:45 PM) Normal AO Auto Urine SS Glucose Test strip (U) [Mass/Vol] >=1000 mg/dL Invalid Interpretation Code Negative AO Auto Urine SS Hemoglobin Auto test strip (U) [Mass/Vol] Negative (06/29/24 4:45 PM) Normal Negative AO Auto Urine SS Ketones Ql (U) Negative Normal Negative AO Auto Urine SS UA Leuk Est Negative (06/29/24 4:45 PM) Normal Negative AO Auto Urine SS UA Nitrite Negative (06/29/24 4:45 PM) Normal Negative AO Auto Urine SS UA pH 6.0 (06/29/24 4:45 PM) Normal 5.0 - 8.0 AO Auto Urine SS UA Protein Negative Normal Negative AO Auto Urine SS UA Spec Grav 1.015 (06/29/24 4:45 PM) Normal 1.015-1.025 AO Auto Urine SS UA Specimen Type Not Given (06/29/24 4:45 PM) Normal AO Auto Urine SS UA Urobilinogen 0.2 E.U./dL Normal 0.2-1.0 AO Auto Urine SS LIPon 06-29-2024 Lipase Level 45 U/L Normal 16-77 [facility] ([place] Comment on above: Performed By: #### C MP, LIP, ANEU, GFR, ADIFF, CBC, YAO RICHARD ####[facility] [place], [place] [address] TROPHSon 06-29-2024 High Sensitivity Troponin I <4 Normal 0-76 [facility] ([place] Comment on above: Result Comment: High Sensitive Troponin I Reference Ranges: Female: 0-51 ng/L Male: 0-76 ng/L Testing performed on [employer] using a homogeneous sandwich chemiluminescent immunoassay based on [employer] technology. Performed By: #### C MP, LIP, ANEU, GFR, ADIFF, CBC, YAO RICHARD ####[address] [place], [place] [address] UAon 06-29-2024 Color (U) Yellow Normal [facility] ([place] Comment on above: Performed By: #### A DIFF, GFR, ANEU, MDW, BMP, CBC #### [place] [address] [place], [place] [address] Glucose (U) [Mass/Vol] mg/dL Abnormal Negative [facility] ([place] Comment on above: Performed By: #### A DIFF, GFR, ANEU, MDW, BMP, CBC #### [address] [address] Ketones Ql (U) Negative Normal Negative [facility] ([place] Comment on above: Performed By: #### A DIFF, GFR, ANEU, MDW, BMP, CBC #### [address] [place] [address] [place], [place] [address] UA Appear Clear Normal Clear [facility] ([place] Comment on above: Performed By: #### A DIFF, GFR, ANEU, MDW, BMP, CBC #### [address] [address] UA Blood Negative Normal Negative [facility] ([place] Comment on above: Performed By: #### A DIFF, GFR, ANEU, MDW, BMP, CBC #### [address] [address] UA Leuk Est Negative Normal Negative [facility] ([place] Comment on above: Performed By: #### A DIFF, GFR, ANEU, MDW, BMP, CBC #### [address] [address] UA Nitrite Negative Normal Negative [facility] ([place] Comment on above: Performed By: #### A DIFF, GFR, ANEU, MDW, BMP, CBC #### [address] [address] UA pH 6.0 Normal 5.0 - 8.0 [facility] ([place] Comment on above: Performed By: #### A DIFF, GFR, ANEU, MDW, BMP, CBC #### [address] [address] UA Protein Negative Normal Negative [facility] ([place] Comment on above: Performed By: #### A DIFF, GFR, ANEU, MDW, BMP, CBC #### [address] [address] UA Spec Grav 1.015 Normal 1.015-1.025 [facility] ([place] Comment on above: Performed By: #### A DIFF, GFR, ANEU, MDW, BMP, CBC #### [address] [address] UA Specimen Type Not Given Normal [facility] ([place] Comment on above: Performed By: #### A DIFF, GFR, ANEU, MDW, BMP, CBC #### [address] [address] UA Urobilinogen 0.2 E.U./dL Normal 0.2-1.0 [facility] ([place] Comment on above: Performed By: #### A DIFF, GFR, ANEU, MDW, BMP, CBC #### [place] [place], [place] [address] Urobilinogen (U) [Mass/Vol] Negative Normal Negative [facility] ([place] Comment on above: Performed By: #### A DIFF, GFR, ANEU, MDW, BMP, CBC #### [place] [place], [place] [address] XR CHEST 1 VIEWon 06-29-2024 XR CHEST 1 VIEW ORIGINAL EXAMINATION: ONE XRAY VIEW OF THE CHEST 06/29/2024 5:12 pm COMPARISON: 09/14/2023. HISTORY: ORDERING SYSTEM PROVIDED HISTORY: Reason for Exam: Shortness of breath FINDINGS: Low lung volumes. Stable cardiomediastinal silhouette. No focal consolidation. No large pleural effusion or pneumothorax. No acute osseous findings. IMPRESSION: Hypoventilatory changes. No focal consolidation. Preliminary Report was Dictated by a Resident I have personally reviewed all of the images of this examination and agree with the resident findings and interpretation. Interpreted by: Darien Gaviria MD Preliminary Report By: Cortes Smith Electronically signed By Darien Gaviria MD Dictated Date: 06/29/2024 5:24:52 PM Prelim Date: 06/29/2024 5:25:58 PM Sign Date: 06/29/2024 9:32:08 PM Ordering Provider: GILMA Mo [facility] ([place]) BASIC METABOLIC PANELon 05-1 Anion gap [Moles/Vol] 11 mmol/L Normal 3-13 [facility] Comment on above: Performed By: #### L AB15, [id number] #### Collections Analyst: DEJA HAAS ([id number]) [facility] R[facility] (SWRLAB) [address] [place] [address] Calcium [Mass/Vol] 9.8 mg/dL Normal 8.4-10.4 [facility] Comment on above: Performed By: #### L AB15, [id number] #### Collections Analyst: DEJA HAAS ([id number]) [facility] (SWRLAB) [address] [place] [address] [place] Chloride [Moles/Vol] 105 mmol/L Normal 98-107 [facility] Comment on above: Performed By: #### Jak HANLEY, [id number] #### Collections Analyst: DEJA HAAS ([id number]) [facility] RITTM[facility] (SWRLAB) [address] [place] [address] [place] CO2 [Moles/Vol] 22 mmol/L Normal 22-30 [facility] Comment on above: Performed By: #### Jak HANLEY, [id number] #### Collections Analyst: DEJA HAAS ([id number]) [facility] (SWRLAB) [address] [place] [address] Creatinine [Mass/Vol] 0.72 mg/dL Normal 0.66-1.25 [facility] Comment on above: Performed By: #### Jak HANLEY, [id number] #### Collections Analyst: DEJA HAAS ([id number]) [facility] (SWRLAB) [address] [place] [address] GLOMERULAR FILTRATION RATE ML/MIN/1.73 SQ M.PREDICTED >90.0 Normal >60.0 [facility] Comment on above: Result Comment: Calc ulation based on the Chronic Kidney Disease Epidemiology Collaboration (CKD-EPI) equation refit without adjustment for race Performed By: #### Jak HANLEY, [id number] #### Collections Analyst: DEJA HAAS ([id number]) [facility] (SWRLAB) [address] [place] [address] [place] Glucose [Mass/Vol] 178 mg/dL High 70-100 [facility] Comment on above: Performed By: #### Jak HANLEY, [id number] #### Collections Analyst: DEJA HAAS ([id number]) [facility] (SWRLAB) [address] [place] [address] [place] Potassium [Moles/Vol] 3.9 mmol/L Normal 3.5-5.1 [facility] Comment on above: Performed By: #### L AB15, [id number] #### Collections Analyst: DEJA HAAS ([id number]) [facility] TE[facility] RITTMAN (SWRLAB) [address] [place] [address] Sodium [Moles/Vol] 138 mmol/L Normal 135-145 [facility] Comment on above: Performed By: #### Jak AB15, [id number] #### Collections Analyst: DEJA HAAS ([id number]) [facility] TE[facility] RITTMAN (SWRLAB) [address] Urea nitrogen [Mass/Vol] 12 mg/dL Normal 9-20 [facility] Comment on above: Performed By: #### Jak AB15, [id number] #### Collections Analyst: DEJA HAAS ([id number]) [facility] (SWRLAB) [address] [place] [address] Basic metabolic 1998 panelon 04-01-2024 Anion gap [Moles/Vol] 11 mmol/L 3 - 13 mmol/L [facility] Calcium [Mass/Vol] 9.8 mg/dL 8.4 - 10. 4 mg/dL [facility] Chloride [Moles/Vol] 105 mmol/L 98 - 10 7 mmol/L [facility] CO2 [Moles/Vol] 22 mmol/L 22 - 30 mmol/L [facility] Creatinine [Mass/Vol] 0.72 mg/dL 0.66 - 1.25 mg/dL [facility] GFR/1.73 sq M.predicted MDRD (S/P/Bld) [Vol rate/Area] - PINF [facility] Comment on above: Calculation based on the Chronic Kidney Disease Epidemiology Collaboration (CKD-EPI) equation refit without adjustment for race Glucose [Mass/Vol] 178 mg/dL High 70 - 100 mg/dL [facility] Interpretation and review of laboratory results Abnormal [facility] Potassium [Moles/Vol] 3.9 mmol/L 3.5 - 5.1 mmol/L [facility] Sodium [Moles/Vol] 138 mmol/L 135 - 145 mmol/L [facility] Urea nitrogen [Mass/Vol] 12 mg/dL 9 - 20 mg/dL [facility] CBC W Auto Differential pane l (Bld)Ordered By: Ashley Pappas on 04-01-2024 Basophils (Bld) [#/Vol] 0.1 10*3/uL 0.0 - 0.2 10*3/uL [facility] Basophils/100 WBC (Bld) 0.8 % 0.0 - 2.0 % [facility] Eosinophils (Bld) [#/Vol] 0.6 10*3/uL High 0.0 - 0.5 10*3/uL [facility] Eosinophils/100 WBC (Bld) 9.6 % High 0.0 - 6.0 % [facility] Erythrocyte distribution width (RBC) [Ratio] 12.9 % 11.5 - 15.0 % [facility] Hematocrit (Bld) [Volume fraction] 42.6 % 40.0 - 52.0 % [facility] Hemoglobin (Bld) [Mass/Vol] 15.1 g/dL 13.0 - 18.0 g/dL [facility] Immature granulocytes (Bld) [#/Vol] 0.0 10*3/uL NINF - 0.1 10*3/uL [facility] Immature granulocytes/100 WBC (Bld) 0.2 % 0.0 - 2.0 % [facility] Interpretation and review of laboratory results Abnormal [facility] Lymphocytes (Bld) [#/Vol] 1.6 10*3/uL 1.0 - 4.3 10*3/uL [facility] Lymphocytes/100 WBC (Bld) 23.9 % 15.0 - 45.0 % [facility] MCH (RBC) [Entitic mass] 29.2 pg 26.0 - 34.0 pg [facility] MCHC (RBC) [Mass/Vol] 35.4 % 30.5 - 36.0 % [facility] MCV (RBC) [Entitic vol] 82.4 fL 77.0 - 99.0 fL [facility] Monocytes (Bld) [#/Vol] 0.5 10*3/uL 0.0 - 0.9 10*3/uL [facility] Monocytes/100 WBC (Bld) 7.9 % 5.0 - 13.0 % [facility] Neutrophils (Bld) [#/Vol] 3.8 10*3/uL 1.8 - 7.5 10*3/uL [facility] Neutrophils/100 WBC (Bld) 57.6 % 38.0 - 82.0 % [facility] Nucleated RBC/100 WBC (Bld) [Ratio] 0.0 % [facility] Platelet mean volume (Bld) [Entitic vol] 9.2 fL 9.0 - 12.7 fL [facility] Comment on above: MPV is a calculated measurement using platelet volume ratio Platelets (Bld) [#/Vol] 251 10*3/uL 140 - 440 10*3/uL [facility] RBC (Bld) [#/Vol] 5.17 10*6/uL 4.40 - 5.9 0 10*6/uL [facility] WBC (Bld) [#/Vol] 6.6 10*3/uL 3.6 - 10.7 10*3/uL [facility] CBC WITH AUTO DIFFERENTIALon 04-01-2024 Basophils (Bld) [#/Vol] 0.1 10*3/uL Normal 0.0-0.2 [facility] Comment on above: Performed By: #### L [id number] #### Collections Analyst: DEJA HAAS ([id number]) [facility] TE[facility] R[facility]AN (SWRLAB) [address] [place] [address] [place] Basophils/100 WBC (Bld) 0.8 % Normal 0.0-2.0 [facility] Comment on above: Performed By: #### L [id number] #### Collections Analyst: DEJA HAAS ([id number]) [facility] TE[facility] (SWRLAB) [address] [place] [address] [place] Eosinophils (Bld) [#/Vol] 0.6 10*3/uL High 0.0-0.5 [facility] Comment on above: Performed By: #### L [id number] #### Collections Analyst: DEJA HAAS ([id number]) [facility] (SW[facility]) [address] [place] [address] [place] Eosinophils/100 WBC (Bld) 9.6 % High 0.0-6.0 [facility] Comment on above: Performed By: #### L [id number] #### Collections Analyst: DEJA HAAS ([id number]) [facility] (SWRLAB) [address] [place] [address] Erythrocyte distribution width (RBC) [Ratio] 12.9 % Normal 11.5-15.0 [facility] Comment on above: Performed By: #### L [id number] #### Collections Analyst: DEJA HAAS ([id number]) [facility] (SWRLAB) [address] [place] [address] Hematocrit (Bld) [Volume fraction] 42.6 % Normal 40.0-52.0 [facility] Comment on above: Performed By: #### L [id number] #### Collections Analyst: DEJA HAAS ([id number]) [facility] (SWRLAB) [address] [place] [address] Hemoglobin (Bld) [Mass/Vol] 15.1 g/dL Normal 13.0-18.0 [facility] Comment on above: Performed By: #### L [id number] #### Collections Analyst: DJEA HAAS ([id number]) [facility] (SWRLAB) [address] [place] [address] IMMATURE GRANS % 0.2 % Normal 0.0-2.0 [facility] Comment on above: Performed By: #### L [id number] #### Collections Analyst: DEJA HAAS ([id number]) [facility] (SWRL[facility]) [address] [place] [address] IMMATURE GRANS ABSOLUTE 0.0 10*3/uL Normal <0.1 [facility] Comment on above: Performed By: #### L [id number] #### Collections Analyst: DEJA HAAS ([id number]) [facility] (SWRL[facility]) [address] [place] [address] Lymphocytes (Bld) [#/Vol] 1.6 10*3/uL Normal 1.0-4.3 [facility] Comment on above: Performed By: #### L [id number] #### Collections Analyst: DEJA HAAS ([id number]) [facility] (SWRLAB) [address] [place] [address] Lymphocytes/100 WBC (Bld) 23.9 % Normal 15.0-45.0 [facility] Comment on above: Performed By: #### L [id number] #### Collections Analyst: DEJA HAAS ([id number]) [facility] (SWRLAB) [address] [place] [address] MCH (RBC) [Entitic mass] 29.2 pg Normal 26.0-34.0 [facility] Comment on above: Performed By: #### L [id number] #### Collections Analyst: DEJA HAAS ([id number]) [facility] (SWRL[place]) [address] [place] [address] MCHC 35.4 % Normal 30.5-36.0 [facility] Comment on above: Performed By: #### L [id number] #### Collections Analyst: DEJA HAAS ([id number]) [facility] (SWRLAB) [address] [place] [address] MCV (RBC) [Entitic vol] 82.4 fL Normal 77.0-99.0 [facility] Comment on above: Performed By: #### L [id number] #### Collections Analyst: DEJA HAAS ([id number]) [facility] (SWRLAB) [address] [place] [address] Monocytes (Bld) [#/Vol] 0.5 10*3/uL Normal 0.0-0.9 [facility] Comment on above: Performed By: #### L [id number] #### Collections Analyst: DEJA HAAS ([id number]) [facility] (SWRLAB) [address] [place] [address] Monocytes/100 WBC (Bld) 7.9 % Normal 5.0-13.0 [facility] Comment on above: Performed By: #### L [id number] #### Collections Analyst: DEJA HAAS ([id number]) [facility] (SWRL[facility]) [address] [place] [address] NEUTROPHILS ABSOLUTE 3.8 10*3/uL Normal 1.8-7.5 [facility] Comment on above: Performed By: #### L [id number] #### Collections Analyst: DEJA HAAS ([id number]) [facility] (SWRLAB) [address] [place] [address] Neutrophils/100 WBC (Bld) 57.6 % Normal 38.0-82.0 [facility] Comment on above: Performed By: #### L [id number] #### Collections Analyst: DEJA HAAS ([id number]) [facility] (SWRLAB) [address] [place] [address] NRBC 0.0 /100 WBCs Normal 0.0-2.0 [facility] Comment on above: Performed By: #### L [id number] #### Collections Analyst: DEJA HAAS ([id number]) [facility] (SWRLAB) [address] [place] [address] Platelet mean volume (Bld) [Entitic vol] 9.2 fL Normal 9.0-12.7 [facility] Comment on above: Result Comment: MPV is a calculated measurement using platelet volume ratio Performed By: #### L [id number] #### Collections Analyst: DEJA HAAS ([id number]) [facility] (SWRLAB) [address] [place] [address] [place] Platelets (Bld) [#/Vol] 251 10*3/uL Normal 140-440 [facility] Comment on above: Performed By: #### L [id number] #### Collections Analyst: DEJA HAAS ([id number]) [facility] (SWRL[facility]) [address] [place] [address] [place] RBC (Bld) [#/Vol] 5.17 10*6/uL Normal 4.40-5.90 [facility] Comment on above: Performed By: #### L [id number] #### Collections Analyst: DEJA HAAS ([id number]) [facility] (SWRLAB) [address] WBC (Bld) [#/Vol] 6.6 10*3/uL Normal 3.6-10.7 [facility] Comment on above: Performed By: #### L [id number] #### Collections Analyst: DEJA HAAS ([id number]) [facility] ([facility]) [address] [place] [address] ECG 12-LEADon 04-01-2024 ECG 12-LEAD IMPRESSION: Sinus rhythm Left anterior fascicular block Compared to 05/07/2022- no significant changes Electronically Signed On 04-01-2024 02:04:21 EDT by Triston Herrera [facility] ED Nursing Noteon 04-01-[address] Herrera at BS, EK G complete. Pt states hx of CP with anxiety Shereen Interiano RN 04/01/24 0117 [facility] ED Provider Noteon ED Provider Note EMERGENCY DEPARTMENT ENCOUNTER Pt Name: Leonel Lake Birthdate 1985 Date of evaluation: 04/01/2024 ED Provider: Triston Herrera MD CHIEF COMPLAINT Chief Complaint Patient presents with ? Chest Pain L sided CP that radiates to L shoulder blade. +nausea, denies SOB with this CP. CP started late afternoon yesterday. Denies hx of stroke or heart attack HISTORY OF PRESENT ILLNESS (Location/Symptom, Timing/Onset, Context/Setting, Quality, Duration, Modifying Factors, Severity) Note limiting factors. I wore appropriate PPE for the entirety of this encounter. HPI Leonel Lake is a 38 y.o. who presents to the emergency department complaint of left-sided chest pain that radiates to his shoulders. Denies nausea or shortness of breath. States that it began about 10 hours prior to sensation. States has been constant. Denies any known coronary disease. States that he had a unremarkable stress test about 6 months ago. Patient has diabetes and high cholesterol but denies any other risk factors of smoking or high blood pressure. States that he has had previous presentations with diagnosis of anxiety. Nursing Notes were reviewed. Outside historians: Parent REVIEW OF SYSTEMS Review of Systems Constitutional: Negative for fever. HENT: Negative for sore throat. Respiratory: Negative for shortness of breath. Cardiovascular: Positive for chest pain. Gastrointestinal: Negative for abdominal pain and nausea. Neurological: Negative for headaches. Pertinent positives and negatives as per HPI PAST MEDICAL HISTORY Past Medical History: Diagnosis Date ? Bipolar 1 disorder ([facility]) 2007 Ms[place]arlon, [employer], [place]- disabled ? Depression ? Gastritis [address] Dunbar ? Psoriasis [address] Dr. Rabago ? Schizophrenia ([facility]) 2007 ? Type 2 diabetes mellitus ([facility]) 12/2019 SURGICAL HISTORY Past Surgical History: Procedure Laterality Date ? CHOLECYSTECTOMY 09/11/2021 Dr. Doran ? COLONOSCOPY 2013 [place] ? TONSILLECTOMY (HISTORICAL) ? UPPER GASTROINTESTINAL ENDOSCOPY 2013 Dr Dunbar CURRENT MEDICATIONS Previous Medications No medications on file ALLERGIES Penicillins, Prednisone, and Seroquel [quetiapine] FAMILY HISTORY Family History Problem Relation Name Age of Onset ? Asthma Mother Stewart ? No Known Problems Father not close ? Arthritis Mother Stewart ? No Known Problems Brother Corey ? No Known Problems Paternal Grandmother ? Hypotension Maternal Grandfather ? Stroke Maternal Grandfather ? Cancer Maternal Grandmother ? No Known Problems Paternal Grandfather SOCIAL HISTORY Social History Socioeconomic History ? Marital status: Single Tobacco Use ? Smoking status: Never ? Smokeless tobacco: Never Substance and Sexual Activity ? Alcohol use: Not Currently ? Drug use: Never Social History Narrative Single, lives with MotherStewart. No children. NS or ETOH use. Disabled since 2007 due to mental health ds PHYSICAL EXAM ED Triage Vitals Temp Pulse Resp BP -- -- -- -- SpO2 Temp src Heart Rate Source Patient Position -- -- -- -- BP Location FiO2 (%) -- -- Physical Exam Vitals and nursing note reviewed. Constitutional: General: He is not in acute distress. Appearance: He is obese. He is not ill-appearing or toxic-appearing. Comments: 38-year-old male HENT: Head: Normocephalic and atraumatic. Mouth/Throat: Mouth: Mucous membranes are moist. Pharynx: Oropharynx is clear. Eyes: Extraocular Movements: Extraocular movements intact. Pupils: Pupils are equal, round, and reactive to light. Cardiovascular: Rate and Rhythm: Normal rate and regular rhythm. Pulmonary: Effort: Pulmonary effort is normal. Breath sounds: Normal breath sounds. Abdominal: Palpations: Abdomen is soft. Tenderness: There is no abdominal tenderness. Musculoskeletal: Cervical back: Normal range of motion. Comments: Symmetric lower extremities no calf tenderness Skin: Findings: Rash present. Neurological: Mental Status: He is alert. DIAGNOSTIC RESULTS RADIOLOGY (Per Emergency Physician): Interpretation per the Radiologist below, if available at the time of this note: XR chest 1 view (Results Pending) LABS: Labs Reviewed BASIC METABOLIC PANEL - Abnormal Result Value SODIUM 138 POTASSIUM 3.9 CHLORIDE 105 CARBON DIOXIDE 22 UREA NITROGEN 12 CREATININE 0.72 GLUCOSE 178 (*) CALCIUM 9.8 ANION GAP 11 eGFR >90.0 CBC WITH AUTO DIFFERENTIAL - Abnormal Auto WBC 6.6 RBC 5.17 Hemoglobin 15.1 Hematocrit 42.6 MCV 82.4 MCH 29.2 MCHC 35.4 RDW 12.9 Platelets 251 MPV 9.2 nRBC 0.0 Neutrophils Relative 57.6 Lymphocytes Relative 23.9 Monocytes Relative 7.9 Eosinophils Relative 9.6 (*) Basophils Relative 0.8 Immature Grans % 0.2 Neutrophils Absolute 3.8 Lymphocytes Absolute 1.6 Monocytes Absolute 0.5 Eosinophils Absolute 0.6 (*) Basophils Absolute 0.1 Immature (more content not included)... Normal [facility] Laboratory - Chemistry and C hemistry - challengeon 04-01-2024 Troponin I.cardiac [Mass/Vol] ng/mL NINF - 0.034 ng/mL [facility] No Panel Informationon 04-01 P [place] 20 degrees [facility] IN Interval 161 ms [facility] QRS [place] -44 degrees [facility] QRSD Interval 92 ms [facility] QT Interval 391 ms [facility] QTC Interval 440 ms [facility] T Wave [place] 24 degrees [facility] Sinus rhythm Left anterior fascicular block Compared to 05/07/2022- no significant changes Electronically Signed On 04-01-2024 02:04:21 EDT by Triston A. Triston Pratt MD - 04/01/2024 IMPRESSION: Sinus rhythm Left anterior fascicular block Compared to 05/07/2022- no significant changes Electronically Signed On 04-01-2024 02:04:21 EDT by Triston Herrera [facility] TROPONIN Ion 04-01-2024 Troponin I.cardiac [Mass/Vol] ng/mL Normal <0.034 [facility] Comment on above: Result Comment: ZENA Allison COMMENTS: Patients with high levels of Biotin oral intake (ie >5 mg/day) may have falsely decreased Troponin levels. Performed By: #### L AB15, [id number] #### Collections Analyst: DEJA HAAS ([id number]) [facility] (SWRLAB) [address] [place] [address] Troponin I.cardiac [Mass/Vol ]on 04-01-2024 Interpretation and review of laboratory results Normal [facility] Patients with high levels of Biotin oral intake (ie >5 mg/day) may have falsely decreased Troponin levels. [facility] Vital signson 04-01-2024 Heart rate 76 /min bpm [facility] XR Chest Single viewon 04-01 No acute cardiopulmonary abnormality identified. Report Dictated on Electronically Signed By: Faisal Zafar MD Electronically Signed Date/Time: 04/01/2024 2:22 AM EDT [facility] EMERGENCY DEPARTMENT RADIOLOGY SYSTEM [facility] 1985 [id number] Exam Date/Time: 04/01/2024 01:33 Procedure: XR CHEST 1 VIEW Ordering Provider: HERRERA SCOTT Reason For Exam: Chest pain EXAMINATION: XR chest AP. EXAM DATE & TIME: 04/01/2024 1:33 AM EDT INDICATION: Chest pain ADDITIONAL INFORMATION: 38-year-old male with chest pain presents for evaluation COMPARISON: Chest x-ray dated 05/07/2022 TECHNIQUE: Frontal view of the chest was obtained. FINDINGS: Lines/support devices: Cardiac leads project over the chest, somewhat limiting evaluation. Cardiomediastinal silhouette: Within normal limits. Lungs/pleura: No focal consolidation, pleural effusion or pneumothorax. Osseous structures: No acute osseous abnormality is demonstrated. Other findings: None. [facility] EMERGENCY DEPARTMENT RADIOLOGY SYSTEM Faisal Zafar MD - 04/01/2024 Patient Name: LEONEL LAKE [facility] 1985 [id number] Exam Date/Time: 04/01/2024 01:33 Procedure: XR CHEST 1 VIEW Ordering Provider: HERRERA SCOTT Reason For Exam: Chest pain EXAMINATION: XR chest AP. EXAM DATE & TIME: 04/01/2024 1:33 AM EDT INDICATION: Chest pain ADDITIONAL INFORMATION: 38-year-old male with chest pain presents for evaluation COMPARISON: Chest x-ray dated 05/07/2022 TECHNIQUE: Frontal view of the chest was obtained. FINDINGS: Lines/support devices: Cardiac leads project over the chest, somewhat limiting evaluation. Cardiomediastinal silhouette: Within normal limits. Lungs/pleura: No focal consolidation, pleural effusion or pneumothorax. Osseous structures: No acute osseous abnormality is demonstrated. Other findings: None. IMPRESSION: No acute cardiopulmonary abnormality identified. Report Dictated on Electronically Signed By: Faisal Zafar MD Electronically Signed Date/Time: 04/01/2024 2:22 AM EDT [facility] Radiology Study observation (narrative) [facility] XR Chest Single viewOrdered By: Faisal Zafar on 04-01-2024 [facility] [employer] Work Phone: Thin prep Papanicolaou smear with manual screeningOrdered By: Marc Aquino on 02-07-2024 Thin prep Papanicolaou smear with manual screening 112 mg/dL 74-106 [facility] Comment on above: MANAGEMENT OF PATIEN T CARE PER NURSING PROTOCOL LABORATORYOrdered By: Alisa Morrell on 12-27-2023 Albumin DL <= 20 mg/L (U) [Mass/Vol] 426 mcg/dL Invalid Interpretation Code AO ADM SS Albumin/Creatinine DL <= 20 mg/L (U) [Mass ratio] 23 mcg/mg Normal 0 - 30 mcg/mg AO ADM SS Creatinine (U) [Mass/Vol] 18.4 mg/dL Low 39.0 - 259.0 mg/dL AO ADM SS MALBRon 12-27-2023 U Creatinine 18.4 mg/dL Low 39.0-259.0 [facility] [place] Comment on above: Performed By: #### M ALBR #### [address] [address] U Microalb 426 mcg/dL Normal [facility] [place] Comment on above: Performed By: #### M ALBR #### [address] [address] U Ratio Alb/Cre 23 mcg/mg Normal 0-30 [facility] [place] Comment on above: Performed By: #### M ALBR #### [address] [address] QUANTTBon 12-18-2023 QFT Criteria Comment Normal [facility] ([place] Comment on above: Result Comment: QuantiFERON-TB Gold Plus is a qualitative indirect test for M tuberculosis infection (including disease) and is intended for use in conjunction with risk assessment, radiography, and other medical and diagnostic evaluations. The QuantiFERON-TB Gold Plus result is determined by subtracting the Nil value from either TB antigen (Ag) value. The Mitogen tube serves as a control for the test. Performed By: #### A DIFF, GFR, ANEU, MDW, BMP, CBC #### [address] [address] QFT Mitogen Value >10.00 Normal [facility] ([place] Comment on above: Performed By: #### A DIFF, GFR, ANEU, MDW, BMP, CBC #### [address] [address] QFT Nil Value 0.00 IU/mL Normal [facility] [place] Comment on above: Performed By: #### A DIFF, GFR, ANEU, MDW, BMP, CBC #### [address] [address] QFT TB1 Ag Value 0.00 IU/mL Normal [facility] ([place] Comment on above: Performed By: #### A DIFF, GFR, ANEU, MDW, BMP, CBC #### [place] [address] QFT TB2 Ag Value 0.01 IU/mL Normal [facility] ([place] Comment on above: Performed By: #### A DIFF, GFR, ANEU, MDW, BMP, CBC #### [place] [address] QFT-TB Gold Plus [employer] Negative Normal Negative [facility] ([place]) Comment on above: Result Comment: No r esponse to M tuberculosis antigens detected. Infection with M tuberculosis is unlikely, but high risk individuals should be considered for additional testing (ATS/IDSA/CDC Clinical Practice Guidelines, 2017). The reference range is an Antigen minus Nil result of <0.35 IU/mL. The specimen received for QuantiFERON testing was incubated by the ordering institution. Specific procedures outlined in our Directory of Services and in the package insert for the QuantiFERON Gold (In Tube) test must be followed to enable for proper stimulation of cells for the production of interferon gamma. Chemiluminescence immunoassay methodology Performed At: [address] [id number] Kenia Nicholson PhD Ph:[phone] Performed By: #### A DIFF, GFR, ANEU, MDW, BMP, CBC #### [place] [address] .Auto Diffon 12-17-2023 Basophil, Absolute 0.1 10 3/mcL Normal 0.0-0.2 [facility] ([place]) Comment on above: Performed By: #### A DIFF, GFR, ANEU, MDW, BMP, CBC #### [place] [address] Basophils/100 WBC (Bld) 0.9 % Normal 0.0-2.5 [facility] ([place] Comment on above: Performed By: #### A DIFF, GFR, ANEU, MDW, BMP, CBC #### [place] [address] Eosinophil, Absolute 0.7 10 3/mcL High 0.0-0.4 [facility] ([place]) Comment on above: Performed By: #### A DIFF, GFR, ANEU, MDW, BMP, CBC #### [address] [address] Eosinophils/100 WBC (Bld) 7.9 % High 0.0-7.0 [facility] ([place]) Comment on above: Performed By: #### A DIFF, GFR, ANEU, MDW, BMP, CBC #### [address] [address] Lymphocyte, Absolute 2.0 10 3/mcL Normal 0.8-3.9 [facility] ([place]) Comment on above: Performed By: #### A DIFF, GFR, ANEU, MDW, BMP, CBC #### [address] [address] Lymphocytes/100 WBC (Bld) 24.3 % Normal 10.0-50.0 [facility] ([place] Comment on above: Performed By: #### A DIFF, GFR, ANEU, MDW, BMP, CBC #### [address] [address] Monocyte, Absolute 0.6 10 3/mcL Normal 0.2-1.0 [facility] ([place]) Comment on above: Performed By: #### A DIFF, GFR, ANEU, MDW, BMP, CBC #### [address] [address] Monocytes/100 WBC (Bld) 7.5 % Normal 1.7-13.0 [facility] ([place] Comment on above: Performed By: #### A DIFF, GFR, ANEU, MDW, BMP, CBC #### [address] [address] Neutrophils/100 WBC (Bld) 59.4 % Normal 37.0-80.0 [facility] ([place] Comment on above: Performed By: #### A DIFF, GFR, ANEU, MDW, BMP, CBC #### [address] [address] .GFRon 12-17-2023 GFR Non- 102 ml/min/1.73sqm Normal [facility] ([place]) Comment on above: Result Comment: GFR Population mean for , Non- Americans Ages 20-29 = 116 mL/min/1.73 sq.m. Ages 30-39 = 107 mL/min/1.73 sq.m. Ages 40-49 = 99 mL/min/1.73 sq.m. Ages 50-59 = 93 mL/min/1.73 sq.m. Ages 60-69 = 85 mL/min/1.73 sq.m. Ages 70+ = 75 mL/min/1.73 sq.m. Chronic Kidney Disease: Less than 60 mL/min/1.73 square meters End Stage Renal Disease: Less than 15 mL/min/1.73 square meters Performed By: #### A DIFF, GFR, ANEU, MDW, BMP, CBC #### [address] [address] GFR 123 ml/min/1.73sqm Normal [facility] ([place]) Comment on above: Result Comment: GFR Population mean for , Non- Americans Ages 20-29 = 116 mL/min/1.73 sq.m. Ages 30-39 = 107 mL/min/1.73 sq.m. Ages 40-49 = 99 mL/min/1.73 sq.m. Ages 50-59 = 93 mL/min/1.73 sq.m. Ages 60-69 = 85 mL/min/1.73 sq.m. Ages 70+ = 75 mL/min/1.73 sq.m. Chronic Kidney Disease: Less than 60 mL/min/1.73 square meters End Stage Renal Disease: Less than 15 mL/min/1.73 square meters Performed By: #### A DIFF, GFR, ANEU, MDW, BMP, CBC #### [address] [address] .MDWon 12-17-2023 Monocyte Distribution Width 18.10 Normal 0.00-20.00 [facility] ([place]) Comment on above: Result Comment: For ED adult patients suspected of sepsis, MDW<=20.0 does not rule out sepsis or risk of sepsis Performed By: #### A DIFF, GFR, ANEU, MDW, BMP, CBC #### [address] [address] .NEUABSon 12-17-2023 Neutrophil, Absolute 5.0 10 3/mcL Normal 2.9-6.2 [facility] ([place]) Comment on above: Performed By: #### A DIFF, GFR, ANEU, MDW, BMP, CBC #### [address] [address] BMPon 12-17-2023 BUN/Creatinine Ratio 18 ratio Normal 7-27 [facility] ([place]) Comment on above: Performed By: #### A DIFF, GFR, ANEU, MDW, BMP, CBC #### [address] [address] Calcium [Mass/Vol] 9.7 mg/dL Normal 8.4-10.2 [facility] ([place]) Comment on above: Performed By: #### A DIFF, GFR, ANEU, MDW, BMP, CBC #### [address] [address] Chloride [Moles/Vol] 100 mmol/L Normal 98-107 [facility] ([place]) Comment on above: Performed By: #### A DIFF, GFR, ANEU, MDW, BMP, CBC #### [address] [address] CO2 [Moles/Vol] 28 mmol/L Normal 22-29 [facility] ([place] Comment on above: Performed By: #### A DIFF, GFR, ANEU, MDW, BMP, CBC #### [address] [address] Creatinine [Mass/Vol] 0.84 mg/dL Normal 0.70-1.30 [facility] ([place]) Comment on above: Performed By: #### A DIFF, GFR, ANEU, MDW, BMP, CBC #### [address] [address] Electrolyte Balance 12.0 mEq/L Normal 4.0-15.0 [facility] ([place]) Comment on above: Performed By: #### A DIFF, GFR, ANEU, MDW, BMP, CBC #### [address] [address] Glucose [Mass/Vol] 167 mg/dL High 70-105 [facility] ([place]) Comment on above: Performed By: #### A DIFF, GFR, ANEU, MDW, BMP, CBC #### [address] [address] Potassium [Moles/Vol] 4.5 mmol/L Normal 3.5-5.1 [facility] ([place]) Comment on above: Performed By: #### A DIFF, GFR, ANEU, MDW, BMP, CBC #### [place] [id number] Sodium [Moles/Vol] 140 mmol/L Normal 136-145 [facility] ([place] Comment on above: Performed By: #### A DIFF, GFR, ANEU, MDW, BMP, CBC #### [place] [address] Urea nitrogen [Mass/Vol] 15 mg/dL Normal 7-18 [facility] ([place] Comment on above: Performed By: #### A DIFF, GFR, ANEU, MDW, BMP, CBC #### [address] [address] CBCon 12-17-2023 Erythrocyte distribution width (RBC) [Ratio] 14.2 % Normal 11.5-14.5 [facility] ([place] Comment on above: Performed By: #### A DIFF, GFR, ANEU, MDW, BMP, CBC #### [address] [address] Hematocrit (Bld) [Volume fraction] 45.4 % Normal 42.0-52.0 [facility] ([place] Comment on above: Performed By: #### A DIFF, GFR, ANEU, MDW, BMP, CBC #### [address] [address] Hgb 16.0 G/dL Normal 14.0-18.0 [facility] ([place] Comment on above: Performed By: #### A DIFF, GFR, ANEU, MDW, BMP, CBC #### [address] [address] MCH (RBC) [Entitic mass] 29.4 pg Normal 27.0-31.2 [facility] ([place] Comment on above: Performed By: #### A DIFF, GFR, ANEU, MDW, BMP, CBC #### [address] [address] MCHC 35.2 G/dL Normal 31.8-35.4 [facility] ([place] Comment on above: Performed By: #### A DIFF, GFR, ANEU, MDW, BMP, CBC #### [address] [address] MCV (RBC) [Entitic vol] 83.4 fL Normal 80.0-94.0 [facility] ([place] Comment on above: Performed By: #### A DIFF, GFR, ANEU, MDW, BMP, CBC #### [address] [address] Platelet 328 10 3/mcL Normal 130-400 [facility] ([place] Comment on above: Performed By: #### A DIFF, GFR, ANEU, MDW, BMP, CBC #### [address] [address] Platelet mean volume (Bld) [Entitic vol] 7.5 fL Normal 7.4-10.4 [facility] ([place] Comment on above: Performed By: #### A DIFF, GFR, ANEU, MDW, BMP, CBC #### [address] [address] RBC 5.44 10 6/mcL Normal 4.04-6.13 [facility] ([place] Comment on above: Performed By: #### A DIFF, GFR, ANEU, MDW, BMP, CBC #### [address] [address] WBC 8.4 10 3/mcL Normal 4.6-10.8 [facility] ([place] Comment on above: Performed By: #### A DIFF, GFR, ANEU, MDW, BMP, CBC #### [place] [address] [place], [place] [address] CT ABDOMEN/PELVIS W/O CONTRA STon 12-17-2023 CT ABDOMEN/PELVIS W/O CONTRAST ORIGINAL EXAMINATION: CT OF THE ABDOMEN AND PELVIS WITHOUT CONTRAST12/17/2023 3:[address] ABDOMEN/PELVIS WITHOUT CONTRAST TECHNIQUE: CT of the abdomen and pelvis was performed without the administration of intravenous contrast. Multiplanar reformatted images are provided for review. Automated exposure control, iterative reconstruction, and/or weight based adjustment of the mA/kV was utilized to reduce the radiation dose to as low as reasonably achievable. COMPARISON: 01/07/2022 HISTORY: ORDERING SYSTEM PROVIDED HISTORY: Reason for Exam: r flank pain FINDINGS: The liver is unremarkable in size and contour. The pancreas, spleen, adrenal glands are unremarkable. The nonenhanced kidneys are without evidence of hydronephrosis. The ureters are normal course and caliber. There is no evidence of urolithiasis. The visualized esophagus, stomach, and duodenum are unremarkable. The visualized aorta is nonaneurysmal. The GI tract exhibits no acute abnormalities. Unremarkable appendix. No pathologically enlarged retroperitoneal, mesenteric, or pelvic lymph nodes are identified. There is no free intraperitoneal air or fluid. The urinary bladder is grossly normal. The prostate contains dystrophic calcifications. No acute or suspicious soft tissue or bony abnormality. Provided images of the lower thorax are unremarkable. IMPRESSION: No acute process within the abdomen or pelvis. I have personally reviewed the images of this examination and agree with the resident's findings and interpretation. Interpreted by: Ramírez Wolf MD Preliminary Report By: Eber Bentley Electronically signed By Ramírez Wolf MD Dictated Date: 12/17/2023 3:34:44 AM Prelim Date: 12/17/2023 3:38:35 AM Sign Date: 12/17/2023 6:03:21 AM Ordering Provider: DEMETRIO MCLAUGHLIN [facility] ([place]) livan 12-17-2023 Color (U) Yellow Normal [facility] ([place] Comment on above: Performed By: #### A DIFF, GFR, ANEU, MDW, BMP, CBC #### [address] [place] [address] [place], [place] [address] Glucose (U) [Mass/Vol] mg/dL Abnormal Negative [facility] ([place] Comment on above: Performed By: #### A DIFF, GFR, ANEU, MDW, BMP, CBC #### [address] [address] Ketones Ql (U) Negative Normal Negative [facility] ([place] Comment on above: Performed By: #### A DIFF, GFR, ANEU, MDW, BMP, CBC #### [address] [address] UA Appear Clear Normal Clear [facility] ([place] Comment on above: Performed By: #### A DIFF, GFR, ANEU, MDW, BMP, CBC #### [address] [address] UA Blood Negative Normal Negative [facility] ([place] Comment on above: Performed By: #### A DIFF, GFR, ANEU, MDW, BMP, CBC #### [address] [address] UA Leuk Est Negative Normal Negative [facility] ([place] Comment on above: Performed By: #### A DIFF, GFR, ANEU, MDW, BMP, CBC #### [address] [address] UA Nitrite Negative Normal Negative [facility] ([place] Comment on above: Performed By: #### A DIFF, GFR, ANEU, MDW, BMP, CBC #### [address] [address] UA pH 7.0 Normal 5.0 - 8.0 [facility] ([place] Comment on above: Performed By: #### A DIFF, GFR, ANEU, MDW, BMP, CBC #### [address] [address] UA Protein Negative Normal Negative [facility] ([place] Comment on above: Performed By: #### A DIFF, GFR, ANEU, MDW, BMP, CBC #### [address] [address] UA Spec Grav 1.015 Normal 1.015-1.025 [facility] ([place] Comment on above: Performed By: #### A DIFF, GFR, ANEU, MDW, BMP, CBC #### [address] [address] UA Specimen Type Clean Catch Normal [facility] ([place] Comment on above: Performed By: #### A DIFF, GFR, ANEU, MDW, BMP, CBC #### [address] [address] UA Urobilinogen 0.2 E.U./dL Normal 0.2-1.0 [facility] ([place] Comment on above: Performed By: #### A DIFF, GFR, ANEU, MDW, BMP, CBC #### [address] [address] Urobilinogen (U) [Mass/Vol] Negative Normal Negative [facility] ([place] Comment on above: Performed By: #### A DIFF, GFR, ANEU, MDW, BMP, CBC #### [address] [address] XR SPINE LUMBAR AP/LATon XR SPINE LUMBAR AP/LAT ORIGINAL EXAMINATION: 3 XRAY VIEWS OF THE LUMBAR SPINE11/26/2023 11:24 am LUMBAR SPINE 2 or 3 VIEWS COMPARISON: None HISTORY: ORDERING SYSTEM PROVIDED HISTORY: Reason for Exam: lumbar degenerative disc disease FINDINGS: The lumbar vertebral body heights are normal. Disc heights are preserved. Mild facet arthropathy seen in the lower lumbar region. IMPRESSION: No compression deformity or significant listhesis. Mild facet arthropathy in the lower lumbar spine Interpreted by: Frank Davalos MD Preliminary Report By: Frank Davalos MD Electronically signed By Frank Davalos MD Dictated Date: 12/01/2023 9:22:07 AM Prelim Date: 12/01/2023 9:23:10 AM Sign Date: 12/01/2023 9:23:10 AM Ordering Provider: JIGNA Mo [facility] ([place] XR HIP 3-4 VIEWS BILATERALon 11-27-2023 XR HIP 3-4 VIEWS BILATERAL ORIGINAL EXAMINATION: 4 XRAY VIEWS OF THE BILATERAL HIPS11/26/2023 11:22 am HIPS BILATERAL XR both hips two views each side COMPARISON: None HISTORY: ORDERING SYSTEM PROVIDED HISTORY: Reason for Exam: hip osteoarthritis, bilateral hip pain greater on the right FINDINGS: No acute fracture, dislocation, lytic process or periosteal reaction is seen in the visualized bones and joints. No erosive type of arthritis. No periarticular soft tissue calcification. No significant osteoarthritis in either hip. No joint space narrowing. Some bony prominence at the femoral head neck junction on both sides. IMPRESSION: No acute skeletal abnormality is seen. . No significant osteoarthritis in the hips. Question predisposition to femoroacetabular impingement. Interpreted by: Jagdish Morgan MD Preliminary Report By: Jagdish Morgan MD Electronically signed By Jagdish Morgan MD Dictated Date: 11/27/2023 12:26:52 PM Prelim Date: 11/27/2023 12:28:42 PM Sign Date: 11/27/2023 12:28:42 PM Ordering Provider: JIGNA BARBOSA [facility] ([place]) .GFRon 11-26-2023 GFR 122 ml/min/1.73sqm Normal [facility] ([place] Comment on above: Result Comment: GFR Population mean for , Non- Americans Ages 20-29 = 116 mL/min/1.73 sq.m. Ages 30-39 = 107 mL/min/1.73 sq.m. Ages 40-49 = 99 mL/min/1.73 sq.m. Ages 50-59 = 93 mL/min/1.73 sq.m. Ages 60-69 = 85 mL/min/1.73 sq.m. Ages 70+ = 75 mL/min/1.73 sq.m. Chronic Kidney Disease: Less than 60 mL/min/1.73 square meters End Stage Renal Disease: Less than 15 mL/min/1.73 square meters Performed By: #### A DIFF, GFR, NANO, W, BMP, CBC #### [place] [id number] GFR Non- 100 ml/min/1.73sqm Normal [facility] ([place] Comment on above: Result Comment: GFR Population mean for , Non- Americans Ages 20-29 = 116 mL/min/1.73 sq.m. Ages 30-39 = 107 mL/min/1.73 sq.m. Ages 40-49 = 99 mL/min/1.73 sq.m. Ages 50-59 = 93 mL/min/1.73 sq.m. Ages 60-69 = 85 mL/min/1.73 sq.m. Ages 70+ = 75 mL/min/1.73 sq.m. Chronic Kidney Disease: Less than 60 mL/min/1.73 square meters End Stage Renal Disease: Less than 15 mL/min/1.73 square meters Performed By: #### A DIFF, GFR, ANEU, MDW, BMP, CBC #### [address] [address] BMPon 11-26-2023 BUN/Creatinine Ratio 11 ratio Normal 7-27 [facility] ([place]) Comment on above: Performed By: #### A DIFF, GFR, ANEU, MDW, BMP, CBC #### [address] [address] Calcium [Mass/Vol] 9.9 mg/dL Normal 8.4-10.2 [facility] ([place] Comment on above: Performed By: #### A DIFF, GFR, ANEU, MDW, BMP, CBC #### [address] [address] Chloride [Moles/Vol] 101 mmol/L Normal 98-107 [facility] ([place]) Comment on above: Performed By: #### A DIFF, GFR, ANEU, MDW, BMP, CBC #### [address] [address] CO2 [Moles/Vol] 28 mmol/L Normal 22-29 [facility] ([place] Comment on above: Performed By: #### A DIFF, GFR, ANEU, MDW, BMP, CBC #### [address] [address] Creatinine [Mass/Vol] 0.85 mg/dL Normal 0.70-1.30 [facility] ([place] Comment on above: Performed By: #### A DIFF, GFR, ANEU, MDW, BMP, CBC #### [address] [address] Electrolyte Balance 12.0 mEq/L Normal 4.0-15.0 [facility] ([place]) Comment on above: Performed By: #### A DIFF, GFR, ANEU, MDW, BMP, CBC #### [address] [address] Glucose [Mass/Vol] 224 mg/dL High 70-105 [facility] ([place] Comment on above: Performed By: #### A DIFF, GFR, ANEU, MDW, BMP, CBC #### [address] [address] Potassium [Moles/Vol] 3.9 mmol/L Normal 3.5-5.1 [facility] ([place] Comment on above: Performed By: #### A DIFF, GFR, ANEU, MDW, BMP, CBC #### [address] [address] Sodium [Moles/Vol] 141 mmol/L Normal 136-145 [facility] ([place] Comment on above: Performed By: #### A DIFF, GFR, ANEU, MDW, BMP, CBC #### [address] [address] Urea nitrogen [Mass/Vol] 9 mg/dL Normal 7-18 [facility] ([place] Comment on above: Performed By: #### A DIFF, GFR, ANEU, MDW, BMP, CBC #### [address] [address] LABORATORYOrdered By: SYSTEM SYSTEM on 11-26-2023 Calcium [Mass/Vol] 9.9 mg/dL Normal 8.4 - 10. 2 mg/dL AO ADM SS Chloride [Moles/Vol] 101 mmol/L Normal 98 - 10 7 mmol/L AO ADM SS CO2 [Moles/Vol] 28 mmol/L Normal 22 - 29 mmol/L AO ADM SS Creatinine [Mass/Vol] 0.85 mg/dL Normal 0.70 - 1.30 mg/dL AO ADM SS Electrolyte Balance 12.0 mEq/L Normal 4.0 - 15 .0 mEq/L AO ADM SS GFR/1.73 sq M.predicted among blacks MDRD (S/P/Bld) [Vol rate/Area] 122 ml/min/1.73sqm Invalid Interpretation Code AO Chemistry S Comment on above: Interpretive Data: GFR Population mean for , Non- Americans Ages 20-29 = 116 mL/min/1.73 sq.m. Ages 30-39 = 107 mL/min/1.73 sq.m. Ages 40-49 = 99 mL/min/1.73 sq.m. Ages 50-59 = 93 mL/min/1.73 sq.m. Ages 60-69 = 85 mL/min/1.73 sq.m. Ages 70+ = 75 mL/min/1.73 sq.m. Chronic Kidney Disease: Less than 60 mL/min/1.73 square meters End Stage Renal Disease: Less than 15 mL/min/1.73 square meters GFR/1.73 sq M.predicted among non-blacks MDRD (S/P/Bld) [Vol rate/Area] 100 ml/min/1.73sqm Invalid Interpretation Code AO Chemistry S Comment on above: Interpretive Data: GFR Population mean for , Non- Americans Ages 20-29 = 116 mL/min/1.73 sq.m. Ages 30-39 = 107 mL/min/1.73 sq.m. Ages 40-49 = 99 mL/min/1.73 sq.m. Ages 50-59 = 93 mL/min/1.73 sq.m. Ages 60-69 = 85 mL/min/1.73 sq.m. Ages 70+ = 75 mL/min/1.73 sq.m. Chronic Kidney Disease: Less than 60 mL/min/1.73 square meters End Stage Renal Disease: Less than 15 mL/min/1.73 square meters Glucose [Mass/Vol] 224 mg/dL High 70 - 105 mg/dL AO ADM SS Potassium [Moles/Vol] 3.9 mmol/L Normal 3.5 - 5.1 mmol/L AO ADM SS Sodium [Moles/Vol] 141 mmol/L Normal 136 - 145 mmol/L AO ADM SS Urea nitrogen [Mass/Vol] 9 mg/dL Normal 7 - 18 mg/dL AO ADM SS Urea nitrogen/Creatinine [Mass ratio] 11 ratio Normal 7 - 27 ratio AO ADM SS NM MYOCARDIAL SPECT STRESS/R ESTon 10-07-2023 NM MYOCARDIAL SPECT STRESS/REST ORIGINAL NM MYOCARDIAL SPECT STRESS/REST CLINICAL STATEMENT: coronary artery calcification TECHNIQUE: Lexiscan dose:0.4 mg Radiopharmaceutical (stress): Tc-99m Sestamibi Dose:30.2 mCi Radiopharmaceutical (rest): Tc-99m Sestamibi Dose:10.4 mCi SPECT acquisition and processing Reconstruction and reorientation of SPECT images into short axis, vertical and horizontal long axis planes Quantitative LVEF assessment COMPARISON:None REPORT:The left ventricle is upper normal in size. On gated imaging the ejection fraction is normal by this method at 51% with normal wall motion. On the stress images there is a decrease in the uptake of activity in the inferior and inferolateral wall extending to the apex. No significant improvement in the uptake of activity in these areas on rest images. There otherwise is relatively homogenous uptake of activity in other areas of the myocardium. IMPRESSION: 1. No evidence of significant inducible ischemia or prior myocardial infarction. 2. Normal ejection fraction by this method at 51% with normal wall motion. 3. Diaphragmatic attenuation artifact. Interpreted By: Dario Mai MD Preliminary Report By: Dario Mai MD Electronically Signed By: Dario Mai MD Dictated Date: 10/07/2023 12:34:27 PM Prelim Date: 10/07/2023 12:34:27 PM Sign Date: 10/07/2023 12:40:39 PM Ordering Provider:Fabian Conde [facility] [place] .GFRon 09-14-2023 GFR Non- 77 ml/min/1.73sqm [facility] ([place] Comment on above: Result Comment: GFR Population mean for , Non- Americans Ages 20-29 = 116 mL/min/1.73 sq.m. Ages 30-39 = 107 mL/min/1.73 sq.m. Ages 40-49 = 99 mL/min/1.73 sq.m. Ages 50-59 = 93 mL/min/1.73 sq.m. Ages 60-69 = 85 mL/min/1.73 sq.m. Ages 70+ = 75 mL/min/1.73 sq.m. Chronic Kidney Disease: Less than 60 mL/min/1.73 square meters End Stage Renal Disease: Less than 15 mL/min/1.73 square meters Performed By: #### A DIFF, GFR, ANEU, MDW, BMP, CBC #### [place] [id number] GFR 94 ml/min/1.73sqm Normal [facility] ([place] Comment on above: Result Comment: GFR Population mean for , Non- Americans Ages 20-29 = 116 mL/min/1.73 sq.m. Ages 30-39 = 107 mL/min/1.73 sq.m. Ages 40-49 = 99 mL/min/1.73 sq.m. Ages 50-59 = 93 mL/min/1.73 sq.m. Ages 60-69 = 85 mL/min/1.73 sq.m. Ages 70+ = 75 mL/min/1.73 sq.m. Chronic Kidney Disease: Less than 60 mL/min/1.73 square meters End Stage Renal Disease: Less than 15 mL/min/1.73 square meters Performed By: #### A DIFF, GFR, ANEU, MDW, BMP, CBC #### [place] [address] .MDWon 09-14-2023 Monocyte Distribution Width 19.61 Normal 0.00-20.00 [facility] ([place] Comment on above: Result Comment: For ED adult patients suspected of sepsis, MDW<=20.0 does not rule out sepsis or risk of sepsis Performed By: #### A DIFF, GFR, ANEU, MDW, BMP, CBC #### [place] [address] .Manual Diffon 09-14-2023 Basophil %, Manual 0.0 % Normal 0.0-2.5 [facility] ([place] Comment on above: Performed By: #### A DIFF, GFR, ANEU, MDW, BMP, CBC #### [place] [address] Basophil, Abs Manual 0.0 10 3/mcL Normal 0.0-0.2 [facility] ([place]) Comment on above: Performed By: #### A DIFF, GFR, ANEU, MDW, BMP, CBC #### [address] [address] Eosinophil %, Manual 20.0 % High 0.0-7.0 [facility] ([place]) Comment on above: Performed By: #### A DIFF, GFR, ANEU, MDW, BMP, CBC #### [address] [address] Eosinophil, Abs Manual 1.8 10 3/mcL High 0.0-0.4 [facility] ([place] Comment on above: Performed By: #### A DIFF, GFR, ANEU, MDW, BMP, CBC #### [address] [address] Lymphocyte %, Manual 18.0 % Normal 10.0-50.0 [facility] ([place]) Comment on above: Performed By: #### A DIFF, GFR, ANEU, MDW, BMP, CBC #### [address] [address] Lymphocyte, Abs Manual 1.7 10 3/mcL Normal 0.8-3.9 [facility] ([place] Comment on above: Performed By: #### A DIFF, GFR, ANEU, MDW, BMP, CBC #### [address] [address] Monocyte %, Manual 5.0 % Normal 1.7-13.0 [facility] ([place] Comment on above: Performed By: #### A DIFF, GFR, ANEU, MDW, BMP, CBC #### [address] [address] Monocyte, Abs Manual 0.5 10 3/mcL Normal 0.2-1.0 [facility] ([place]) Comment on above: Performed By: #### A DIFF, GFR, ANEU, MDW, BMP, CBC #### [address] [address] Neutrophil %, Manual 57.0 % Normal 37.0-80.0 [facility] ([place] Comment on above: Performed By: #### A DIFF, GFR, ANEU, MDW, BMP, CBC #### [address] [address] Neutrophil, Abs Manual 5.3 10 3/mcL Normal 2.9-6.2 [facility] ([place] Comment on above: Performed By: #### A DIFF, GFR, ANEU, MDW, BMP, CBC #### [address] [address] Nucleated RBC 0.0 /100 WBC Normal [facility] ([place] Comment on above: Performed By: #### A DIFF, GFR, ANEU, MDW, BMP, CBC #### [address] [address] .Morphon 09-14-2023 Large Platelets Few [facility]) Comment on above: Performed By: #### A DIFF, GFR, ANEU, MDW, BMP, CBC #### [address] [address] Platelet Estimate Normal Normal [facility]) Comment on above: Performed By: #### A DIFF, GFR, ANEU, MDW, BMP, CBC #### [address] [address] BMPon 09-14-2023 BUN/Creatinine Ratio 14 ratio Normal 7-27 [facility]) Comment on above: Performed By: #### A DIFF, GFR, ANEU, MDW, BMP, CBC #### [address] [address] Calcium [Mass/Vol] 9.2 mg/dL Normal 8.4-10.2 [facility] [place] Comment on above: Performed By: #### A DIFF, GFR, ANEU, MDW, BMP, CBC #### [address] [address] Chloride [Moles/Vol] 103 mmol/L Normal 98-107 [facility] ([place] Comment on above: Performed By: #### A DIFF, GFR, ANEU, MDW, BMP, CBC #### [address] [address] CO2 [Moles/Vol] 27 mmol/L Normal 22-29 [facility] ([place] Comment on above: Performed By: #### A DIFF, GFR, ANEU, MDW, BMP, CBC #### [address] [address] Creatinine [Mass/Vol] 1.07 mg/dL Normal 0.70-1.30 [facility] [facility] ([place]) Comment on above: Performed By: #### A DIFF, GFR, ANEU, MDW, BMP, CBC #### [address] [address] Electrolyte Balance 10.0 mEq/L Normal 4.0-15.0 [facility] ([place]) Comment on above: Performed By: #### A DIFF, GFR, ANEU, MDW, BMP, CBC #### [address] [address] Glucose [Mass/Vol] 86 mg/dL Normal 70-105 [facility] ([place]) Comment on above: Performed By: #### A DIFF, GFR, ANEU, MDW, BMP, CBC #### [address] [address] Potassium [Moles/Vol] 3.9 mmol/L Normal 3.5-5.1 [facility] ([place]) Comment on above: Performed By: #### A DIFF, GFR, ANEU, MDW, BMP, CBC #### [address] [address] Sodium [Moles/Vol] 140 mmol/L Normal 136-145 [facility] ([place]) Comment on above: Performed By: #### A DIFF, GFR, ANEU, MDW, BMP, CBC #### [address] [address] Urea nitrogen [Mass/Vol] 15 mg/dL Normal 7-18 [facility] ([place]) Comment on above: Performed By: #### A DIFF, GFR, ANEU, MDW, BMP, CBC #### [address] [address] CBCon 09-14-2023 Erythrocyte distribution width (RBC) [Ratio] 13.7 % Normal 11.5-14.5 [facility] ([place]) Comment on above: Performed By: #### A DIFF, GFR, ANEU, MDW, BMP, CBC #### [address] [address] Hematocrit (Bld) [Volume fraction] 42.5 % Normal 42.0-52.0 [facility] ([place]) Comment on above: Performed By: #### A DIFF, GFR, ANEU, MDW, BMP, CBC #### [address] [address] Hgb 14.6 G/dL Normal 14.0-18.0 [facility] ([place] Comment on above: Performed By: #### A DIFF, GFR, ANEU, MDW, BMP, CBC #### [address] [address] MCH (RBC) [Entitic mass] 28.4 pg Normal 27.0-31.2 [facility] ([place] Comment on above: Performed By: #### A DIFF, GFR, ANEU, MDW, BMP, CBC #### [address] [address] MCHC 34.4 G/dL Normal 31.8-35.4 [facility] ([place]) Comment on above: Performed By: #### A DIFF, GFR, ANEU, MDW, BMP, CBC #### [address] [address] MCV (RBC) [Entitic vol] 82.6 fL Normal 80.0-94.0 [facility] ([place] Comment on above: Performed By: #### A DIFF, GFR, ANEU, MDW, BMP, CBC #### [address] [address] Platelet 277 10 3/mcL Normal 130-400 [facility] ([place] Comment on above: Performed By: #### A DIFF, GFR, ANEU, MDW, BMP, CBC #### [address] [address] Platelet mean volume (Bld) [Entitic vol] 6.5 fL Low 7.4-10.4 [facility] ([place]) Comment on above: Performed By: #### A DIFF, GFR, ANEU, MDW, BMP, CBC #### [address] [place], [place] [address] RBC 5.15 10 6/mcL Normal 4.04-6.13 [facility] ([place]) Comment on above: Performed By: #### A DIFF, GFR, ANEU, MDW, BMP, CBC #### [address] [place], [place] [address] WBC 9.3 10 3/mcL Normal 4.6-10.8 [facility] ([place]) Comment on above: Performed By: #### A DIFF, GFR, ANEU, MDW, BMP, CBC #### [address] [place], [place] [address] CT ANGIOGRAPHY CHEST W/CONTR Sanjuana 09-14-2023 CT ANGIOGRAPHY CHEST W/CONTRAST ORIGINAL EXAMINATION: CTA OF THE CHEST 09/14/2023 4:48 pm TECHNIQUE: CTA of the chest was performed after the administration of intravenous contrast. Multiplanar reformatted images are provided for review. MIP images are provided for review. Automated exposure control, iterative reconstruction, and/or weight based adjustment of the mA/kV was utilized to reduce the radiation dose to as low as reasonably achievable. COMPARISON: 09/02/2023. HISTORY: ORDERING SYSTEM PROVIDED HISTORY: Reason for Exam: difficulty breathing; suspect PE FINDINGS: Pulmonary Arteries: Pulmonary arteries are adequately opacified for evaluation. No evidence of intraluminal filling defect to suggest pulmonary embolism. Main pulmonary artery is normal in caliber. Mediastinum: No evidence of mediastinal lymphadenopathy. The heart appears enlarged. Focal coronary artery calcifications noted. The heart and pericardium demonstrate no acute abnormality. There is no acute abnormality of the thoracic aorta. Lungs/pleura: Respiratory motion limits evaluation of the lung parenchyma especially in the bases. No pleural effusion or pneumothorax. No focal consolidation. Right basilar atelectasis. Upper Abdomen: Limited images of the upper abdomen are unremarkable. Soft Tissues/Bones: Bilateral gynecomastia. IMPRESSION: No evidence of pulmonary embolism or acute pulmonary abnormality. Coronary artery atherosclerosis. I have personally reviewed the images of this examination and agree with the resident's findings and interpretation. Interpreted by: Jamie Black Preliminary Report By: Faisal Enriquez Electronically signed By Jamie Black Dictated Date: 09/14/2023 5:05:27 PM Prelim Date: 09/14/2023 5:10:01 PM Sign Date: 09/14/2023 5:20:28 PM Ordering Provider: PRASHANT Mo [facility] ([place]) DIMERon 09-14-2023 D-Dimer 403 ng/mL D-DU High 0-230 [facility] ([place]) Comment on above: Result Comment: Resu lts reported in D-DU ng/mL. Positive for D-dimer. A positive D-Dimer may occur in the following: DVT, PE, DIC, Trauma, Cancer, Sepsis, , Rheumatoid arthritis, Myocardial infarction and Cirrhosis. The presence of Rheumatoid Factor and HAMA (human mouse antibody) produces an overestimation of test results. The result of the D-Dimer test should be evaluated in the context of all the clinical and laboratory data available. In those instances where the laboratory result does not agree with the clinical evaluation, additional tests should be performed accordingly. If the D-Dimer result is used to exclude DVT or PE, the recommended cutoff value is less than 230 ng/mL. The D-Dimer result should not be used alone to rule in DVT/PE, but should be used in conjunction with a clinical pretest probability (PTP)assessment model to exclude venous thromboembolism (VTE) in outpatients suspected of deep venous thrombosis (DVT) and pulmonary embolism (PE). Performed By: #### A DIFF, GFR, ANEU, MDW, BMP, CBC #### [address] [address] PBNPon 09-14-2023 Natriuretic peptide B (Bld) [Mass/Vol] 13 pg/mL Normal 0-125 [facility] ([place] Comment on above: Result Comment: NT-p roBNP results of less than 300 pg/mL effectively rules out acute congestive heart failure with 99% negative predictive value. Performed By: #### A DIFF, GFR, ANEU, MDW, BMP, CBC #### [address] [address] TROPHSon 09-14-2023 Troponin I High Sensitivity <4.0 Normal 0.0-76.2 [facility]) Comment on above: Performed By: #### T [facility] ####[address] [place], [place] [address] Troponin I High Sensitivity <4.0 Normal 0.0-76.2 [facility]) Comment on above: Performed By: #### A DIFF, GFR, ANEU, W, BMP, CBC #### [address] [place], [place] [address] XR CHEST 1 VIEWon 09-14-2023 XR CHEST 1 VIEW ORIGINAL EXAMINATION: ONE XRAY VIEW OF THE CHEST 09/14/2023 3:56 pm COMPARISON: Advertising Coordinator view from CT chest July 03, 2023 HISTORY: ORDERING SYSTEM PROVIDED HISTORY: Reason for Exam: chest pain FINDINGS: Cardiomediastinal silhouette is unchanged in size. Costophrenic angles are sharp. No radiographic pneumothorax. No focal consolidation. Osseous structures grossly unchanged. IMPRESSION: No acute radiographic findings. Interpreted by: Everton Velázquez Preliminary Report By: Everton Velázquez Electronically signed By Everton Velázquez Dictated Date: 09/14/2023 4:05:58 PM Prelim Date: 09/14/2023 4:06:45 PM Sign Date: 09/14/2023 4:06:45 PM Ordering Provider: HANNAH Mo [facility]) APOBon 09-08-2023 Apolipoprotein B [Mass/Vol] 82 mg/dL Normal <90 [facility]) Comment on above: Result Comment: Mode rate Risk: 90-119 mg/dL High Risk: >119 mg/dL Performed By: [place] [address] Drapery Counselor: Anupam Bains III, M.D. CLIA#: [id number] Performed By: #### A DIFF, GFR, NANO, YAO, BMP, CBC #### [address] [address] LIPOAon 09-03-2023 Lipoprotein a [Mass/Vol] mg/dL Normal <30 [facility]) Comment on above: Result Comment: Perf ormed By: [place] [address] Drapery Counselor: Anupam Bains III, M.D. [facility]#: [id number] Performed By: #### A DIFF, GFR, ANEU, MDW, BMP, CBC #### [address] [address] .Auto Diffon 09-02-2023 Basophil, Absolute 0.1 10 3/mcL Normal 0.0-0.2 [facility] ([place]) Comment on above: Performed By: #### A DIFF, GFR, ANEU, MDW, BMP, CBC #### [address] [address] Basophils/100 WBC (Bld) 1.2 % Normal 0.0-2.5 [facility] ([place]) Comment on above: Performed By: #### A DIFF, GFR, ANEU, MDW, BMP, CBC #### [address] [address] Eosinophil, Absolute 1.6 10 3/mcL High 0.0-0.4 [facility] ([place]) Comment on above: Performed By: #### A DIFF, GFR, ANEU, MDW, BMP, CBC #### [address] [address] Eosinophils/100 WBC (Bld) 18.0 % High 0.0-7.0 [facility] ([place]) Comment on above: Performed By: #### A DIFF, GFR, ANEU, MDW, BMP, CBC #### [address] [address] Lymphocyte, Absolute 1.5 10 3/mcL Normal 0.8-3.9 [facility] ([place]) Comment on above: Performed By: #### A DIFF, GFR, ANEU, MDW, BMP, CBC #### [address] [address] Lymphocytes/100 WBC (Bld) 17.6 % Normal 10.0-50.0 [facility] ([place]) Comment on above: Performed By: #### A DIFF, GFR, ANEU, MDW, BMP, CBC #### [address] [address] Monocyte, Absolute 0.7 10 3/mcL Normal 0.2-1.0 [facility] ([place]) Comment on above: Performed By: #### A DIFF, GFR, ANEU, MDW, BMP, CBC #### [address] [address] Monocytes/100 WBC (Bld) 8.3 % Normal 1.7-13.0 [facility] ([place] Comment on above: Performed By: #### A DIFF, GFR, ANEU, MDW, BMP, CBC #### [address] [address] Neutrophils/100 WBC (Bld) 54.9 % Normal 37.0-80.0 [facility] ([place] Comment on above: Performed By: #### A DIFF, GFR, ANEU, MDW, BMP, CBC #### [address] [address] .NEUABSon 09-02-2023 Neutrophil, Absolute 4.8 10 3/mcL Normal 2.9-6.2 [facility] ([place]) Comment on above: Performed By: #### A DIFF, GFR, ANEU, MDW, BMP, CBC #### [id number] CBCon 09-02-2023 Erythrocyte distribution width (RBC) [Ratio] 13.4 % Normal 11.5-14.5 [facility] ([place] Comment on above: Performed By: #### A DIFF, GFR, ANEU, MDW, BMP, CBC #### [address] [address] Hematocrit (Bld) [Volume fraction] 42.5 % Normal 42.0-52.0 [facility] ([place] Comment on above: Performed By: #### A DIFF, GFR, ANEU, MDW, BMP, CBC #### [address] [address] Hgb 14.4 G/dL Normal 14.0-18.0 [facility] ([place] Comment on above: Performed By: #### A DIFF, GFR, ANEU, MDW, BMP, CBC #### [address] [address] MCH (RBC) [Entitic mass] 28.4 pg Normal 27.0-31.2 [facility] ([place] Comment on above: Performed By: #### A DIFF, GFR, ANEU, MDW, BMP, CBC #### [address] [address] MCHC 34.0 G/dL Normal 31.8-35.4 [facility] ([place] Comment on above: Performed By: #### A DIFF, GFR, ANEU, MDW, BMP, CBC #### [address] [address] MCV (RBC) [Entitic vol] 83.3 fL Normal 80.0-94.0 [facility] ([place] Comment on above: Performed By: #### A DIFF, GFR, ANEU, MDW, BMP, CBC #### [id number] Platelet 241 10 3/mcL Normal 130-400 [facility] ([place]) Comment on above: Performed By: #### A DIFF, GFR, ANEU, MDW, BMP, CBC #### [address] [address] Platelet mean volume (Bld) [Entitic vol] 6.9 fL Low 7.4-10.4 [facility] ([place] Comment on above: Performed By: #### A DIFF, GFR, ANEU, MDW, BMP, CBC #### [address] [address] RBC 5.09 10 6/mcL Normal 4.04-6.13 [facility] ([place] Comment on above: Performed By: #### A DIFF, GFR, ANEU, MDW, BMP, CBC #### [id number] WBC 8.7 10 3/mcL Normal 4.6-10.8 [facility] ([place]) Comment on above: Performed By: #### A DIFF, GFR, ANEU, MDW, BMP, CBC #### [facility] [address] [place], [place] [address] CT ANGIOGRAPHY CHEST W/CONTR Sanjuana 09-02-2023 CT ANGIOGRAPHY CHEST W/CONTRAST ORIGINAL EXAMINATION: CTA OF THE CHEST09/02/2023 9:54 am CTA CHEST WITH CONTRAST TECHNIQUE: CTA of the chest was performed after the administration of intravenous contrast. Multiplanar reformatted images are provided for review. MIP images are provided for review. Automated exposure control, iterative reconstruction, and/or weight based adjustment of the mA/kV was utilized to reduce the radiation dose to as low as reasonably achievable. CTA of the thorax was acquired in the axial plane. Coronal and sagittal reformatted images were reviewed. Three dimensional reconstructions were created on a separate workstation. COMPARISON: Two-view chest 01/12/2015. HISTORY: ORDERING SYSTEM PROVIDED HISTORY: Reason for Exam: calcified aorta FINDINGS: Thoracic aortic caliber is normal. There is no evidence of calcific atherosclerotic changes within the thoracic aorta. There are aortic valvular calcifications. There are coronary artery calcifications. There is good contrast opacification of the pulmonary arteries with no evidence of pulmonary embolic disease. There are no pleural or pericardial effusions. There are no enlarged mediastinal or hilar lymph nodes. There is hepatomegaly with diffuse hepatic steatosis. The adrenal glands are normal. Lung window images: The tracheobronchial tree is clear. The lungs are clear with no nodules or infiltrates or interstitial lung disease or bronchiectasis. There is no pleural abnormality or pneumothorax. IMPRESSION: 1. No acute intrathoracic process. 2. Hepatomegaly with diffuse hepatic steatosis. Interpreted by: Bharat Pardo Preliminary Report By: Bharat Pardo Electronically signed By Bharat Pardo Dictated Date: 09/02/2023 9:55:27 AM Prelim Date: 09/02/2023 9:59:01 AM Sign Date: 09/02/2023 9:59:01 AM Ordering Provider: FABIAN Mo [facility] ([place]) LABORATORYOrdered By: SYSTEM SYSTEM on 09-02-2023 Basophil, Absolute 0.1 103/mcL Invalid Interpretation Code 0.0 - 0.2 10^3/mcL AO Workflow SS Basophils/100 WBC (Bld) 1.2 % Invalid Interpretation Code 0.0 - 2.5 % AO Workflow SS Eosinophil, Absolute 1.6 103/mcL Invalid Interpretation Code 0.0 - 0.4 10^3/mcL AO Workflow SS Eosinophils/100 WBC (Bld) 18.0 % Invalid Interpretation Code 0.0 - 7.0 % AO Workflow SS Erythrocyte distribution width (RBC) [Ratio] 13.4 % Invalid Interpretation Code 11.5 - 14.5 % AO Workflow SS Hematocrit (Bld) [Volume fraction] 42.5 % Invalid Interpretation Code 42.0 - 52.0 % AO Workflow SS Hemoglobin (Bld) [Mass/Vol] 14.4 G/dL Invalid Interpretation Code 14.0 - 18.0 G/dL AO Workflow SS Lymphocyte, Absolute 1.5 103/mcL Invalid Interpretation Code 0.8 - 3.9 10^3/mcL AO Workflow SS Lymphocytes/100 WBC (Bld) 17.6 % Invalid Interpretation Code 10.0 - 50.0 % AO Workflow SS MCH (RBC) [Entitic mass] 28.4 pg Invalid Interpretation Code 27.0 - 31.2 pg AO Workflow SS MCHC 34.0 G/dL Invalid Interpretation Code 31.8 - 35.4 G/dL AO Workflow SS MCV (RBC) [Entitic vol] 83.3 fL Invalid Interpretation Code 80.0 - 94.0 fL AO Workflow SS Monocyte, Absolute 0.7 103/mcL Invalid Interpretation Code 0.2 - 1.0 10^3/mcL AO Workflow SS Monocytes/100 WBC (Bld) 8.3 % Invalid Interpretation Code 1.7 - 13.0 % AO Workflow SS Neutrophil, Absolute 4.8 103/mcL Invalid Interpretation Code 2.9 - 6.2 10^3/mcL AO Workflow SS Neutrophils/100 WBC (Bld) 54.9 % Invalid Interpretation Code 37.0 - 80.0 % AO Workflow SS Platelet mean volume (Bld) [Entitic vol] 6.9 fL Invalid Interpretation Code 7.4 - 10.4 fL AO Workflow SS Platelets (Bld) [#/Vol] 241 103/mcL Invalid Interpretation Code 130 - 400 10^3/mcL AO Workflow SS RBC (Bld) [#/Vol] 5.09 106/mcL Invalid Interpretation Code 4.04 - 6.13 10^6/mcL AO Workflow SS WBC (Bld) [#/Vol] 8.7 103/mcL Invalid Interpretation Code 4.6 - 10.8 10^3/mcL AO Workflow SS XR Hand - left 3 Viewson 10- 06-2023 1. Mild left middle finger edema. 2. No acute osseous findings. Report Dictated on Electronically Signed By: Marc Mcdaniel MD Electronically Signed Date/Time: 08/27/2023 8:37 PM EDT [facility] Patient Name: LEONEL LAKE : 1985 Exam Date/Time: 08/27/2023 20:23 Procedure: XR HAND 3+ VIEWS LEFT Ordering Provider: PETERSON JOSEPH Reason For Exam: HAND PAIN CLINICAL INFORMATION: Left hand pain and swelling. AP, oblique, and lateral views of the left hand are provided without comparison. FINDINGS: The left middle finger is mildly edematous. The underlying osseous structures are normal. There is no fracture or dislocation. The joint spaces are maintained. The mineralization of the bones is normal. There is no radiopaque foreign body. [facility] Marc Mcdaniel MD - 08/27/2023 Patient Name: LEONEL LAKE : 1985 Exam Date/Time: 08/27/2023 20:23 Procedure: XR HAND 3+ VIEWS LEFT Ordering Provider: PETERSON JOSEPH Reason For Exam: HAND PAIN CLINICAL INFORMATION: Left hand pain and swelling. AP, oblique, and lateral views of the left hand are provided without comparison. FINDINGS: The left middle finger is mildly edematous. The underlying osseous structures are normal. There is no fracture or dislocation. The joint spaces are maintained. The mineralization of the bones is normal. There is no radiopaque foreign body. IMPRESSION: 1. Mild left middle finger edema. 2. No acute osseous findings. Report Dictated on Electronically Signed By: Marc Mcdaniel MD Electronically Signed Date/Time: 08/27/2023 8:37 PM EDT [employer] Rad[facility] Study observation (narrative) [employer] XR Hand - left 3 ViewsOrdere d By: Marc Mcdaniel on 08-27-2023 [employer] Work Phone: .Auto Diffon 08-13-2023 Basophil, Absolute 0.1 10 3/mcL Normal 0.0-0.2 [facility] ([place]) Comment on above: Performed By: #### A DIFF, GFR, ANEU, MDW, BMP, CBC #### [address] [address] Basophils/100 WBC (Bld) 0.7 % Normal 0.0-2.5 [facility] ([place] Comment on above: Performed By: #### A DIFF, GFR, ANEU, MDW, BMP, CBC #### [address] [address] Eosinophil, Absolute 0.4 10 3/mcL Normal 0.0-0.4 [facility] ([place]) Comment on above: Performed By: #### A DIFF, GFR, ANEU, MDW, BMP, CBC #### [address] [address] Eosinophils/100 WBC (Bld) 4.7 % Normal 0.0-7.0 [facility] ([place] Comment on above: Performed By: #### A DIFF, GFR, ANEU, MDW, BMP, CBC #### [address] [address] Lymphocyte, Absolute 1.4 10 3/mcL Normal 0.8-3.9 [facility] ([place]) Comment on above: Performed By: #### A DIFF, GFR, ANEU, MDW, BMP, CBC #### [address] [address] Lymphocytes/100 WBC (Bld) 17.3 % Normal 10.0-50.0 [facility] ([place] Comment on above: Performed By: #### A DIFF, GFR, ANEU, MDW, BMP, CBC #### [address] [address] Monocyte, Absolute 0.7 10 3/mcL Normal 0.2-1.0 [facility] ([place]) Comment on above: Performed By: #### A DIFF, GFR, ANEU, MDW, BMP, CBC #### [address] [address] Monocytes/100 WBC (Bld) 9.1 % Normal 1.7-13.0 [facility] ([place] Comment on above: Performed By: #### A DIFF, GFR, YAO MCGILL, BMP, CBC #### [address] [address] Neutrophils/100 WBC (Bld) 68.2 % Normal 37.0-80.0 [facility] ([place] Comment on above: Performed By: #### A DIFF, GFR, YAO MCGILL, BMP, CBC #### [address] [address] .GFRon 08-13-2023 GFR 87 ml/min/1.73sqm Normal [facility] ([place]) Comment on above: Result Comment: GFR Population mean for , Non- Americans Ages 20-29 = 116 mL/min/1.73 sq.m. Ages 30-39 = 107 mL/min/1.73 sq.m. Ages 40-49 = 99 mL/min/1.73 sq.m. Ages 50-59 = 93 mL/min/1.73 sq.m. Ages 60-69 = 85 mL/min/1.73 sq.m. Ages 70+ = 75 mL/min/1.73 sq.m. Chronic Kidney Disease: Less than 60 mL/min/1.73 square meters End Stage Renal Disease: Less than 15 mL/min/1.73 square meters Performed By: #### A DIFF, GFR, YAO MCGILL, BMP, CBC #### [address] [address] GFR Non- 72 ml/min/1.73sqm Normal [facility] ([place] Comment on above: Result Comment: GFR Population mean for , Non- Americans Ages 20-29 = 116 mL/min/1.73 sq.m. Ages 30-39 = 107 mL/min/1.73 sq.m. Ages 40-49 = 99 mL/min/1.73 sq.m. Ages 50-59 = 93 mL/min/1.73 sq.m. Ages 60-69 = 85 mL/min/1.73 sq.m. Ages 70+ = 75 mL/min/1.73 sq.m. Chronic Kidney Disease: Less than 60 mL/min/1.73 square meters End Stage Renal Disease: Less than 15 mL/min/1.73 square meters Performed By: #### A DIFF, GFR, ANEU, MDW, BMP, CBC #### [address] [address] .NEUABSon 08-13-2023 Neutrophil, Absolute 5.4 10 3/mcL Normal 2.9-6.2 [facility] ([place]) Comment on above: Performed By: #### A DIFF, GFR, ANEU, MDW, BMP, CBC #### [place] [address] CBCon 08-13-2023 Erythrocyte distribution width (RBC) [Ratio] 13.5 % Normal 11.5-14.5 [facility] ([place] Comment on above: Performed By: #### A DIFF, GFR, ANEU, MDW, BMP, CBC #### [place] [address] Hematocrit (Bld) [Volume fraction] 43.5 % Normal 42.0-52.0 [facility] ([place] Comment on above: Performed By: #### A DIFF, GFR, ANEU, MDW, BMP, CBC #### [place] [id number] Hgb 14.9 G/dL Normal 14.0-18.0 [facility] ([place] Comment on above: Performed By: #### A DIFF, GFR, ANEU, MDW, BMP, CBC #### [place] [address] MCH (RBC) [Entitic mass] 28.6 pg Normal 27.0-31.2 [facility] ([place] Comment on above: Performed By: #### A DIFF, GFR, ANEU, MDW, BMP, CBC #### [place] [address] MCHC 34.3 G/dL Normal 31.8-35.4 [facility] ([place] Comment on above: Performed By: #### A DIFF, GFR, ANEU, MDW, BMP, CBC #### [address] [address] MCV (RBC) [Entitic vol] 83.3 fL Normal 80.0-94.0 [facility] ([place] Comment on above: Performed By: #### A DIFF, GFR, ANEU, MDW, BMP, CBC #### [address] [address] Platelet 260 10 3/mcL Normal 130-400 [facility] ([place] Comment on above: Performed By: #### A DIFF, GFR, ANEU, MDW, BMP, CBC #### [address] [address] Platelet mean volume (Bld) [Entitic vol] 7.0 fL Low 7.4-10.4 [facility] ([place] Comment on above: Performed By: #### A DIFF, GFR, ANEU, MDW, BMP, CBC #### [address] [address] RBC 5.22 10 6/mcL Normal 4.04-6.13 [facility] ([place] Comment on above: Performed By: #### A DIFF, GFR, ANEU, MDW, BMP, CBC #### [address] [address] WBC 8.0 10 3/mcL Normal 4.6-10.8 [facility] ([place] Comment on above: Performed By: #### A DIFF, GFR, ANEU, MDW, BMP, CBC #### [address] [address] CMPon 08-13-2023 Albumin Level 4.4 G/dL Normal 3.5-5.0 [facility] ([place] Comment on above: Performed By: #### A DIFF, GFR, ANEU, MDW, BMP, CBC #### [address] [address] Albumin/Globulin [Mass ratio] 1.3 {ratio} Normal 1.1-2.5 [facility] ([place] Comment on above: Performed By: #### A DIFF, GFR, ANEU, MDW, BMP, CBC #### [address] [address] ALP [Catalytic activity/Vol] 69 U/L Normal 40-135 [facility] ([place] Comment on above: Performed By: #### A DIFF, GFR, ANEU, MDW, BMP, CBC #### [address] [address] ALT [Catalytic activity/Vol] 54 U/L Normal 16-63 [facility] ([place] Comment on above: Performed By: #### A DIFF, GFR, ANEU, MDW, BMP, CBC #### [address] [address] AST [Catalytic activity/Vol] 33 U/L Normal 10-40 [facility] ([place] Comment on above: Performed By: #### A DIFF, GFR, ANEU, MDW, BMP, CBC #### [address] [address] Bili Total 0.6 mg/dL Normal 0.2-1.0 [facility] ([place] Comment on above: Result Comment: Use of this assay is not recommended for patients undergoing treatment with eltrombopag due to the potential for falsely elevated results. Performed By: #### A DIFF, GFR, ANEU, MDW, BMP, CBC #### [address] [address] BUN/Creatinine Ratio 11 ratio Normal 7-27 [facility] ([place] Comment on above: Performed By: #### A DIFF, GFR, ANEU, MDW, BMP, CBC #### [address] [address] Calcium [Mass/Vol] 9.3 mg/dL Normal 8.4-10.2 [facility] ([place] Comment on above: Performed By: #### A DIFF, GFR, ANEU, MDW, BMP, CBC #### [address] [address] Chloride [Moles/Vol] 102 mmol/L Normal 98-107 [facility] ([place]) Comment on above: Performed By: #### A DIFF, GFR, ANEU, MDW, BMP, CBC #### [address] [address] CO2 [Moles/Vol] 28 mmol/L Normal 22-29 [facility] ([place] Comment on above: Performed By: #### A DIFF, GFR, ANEU, MDW, BMP, CBC #### [address] [address] Creatinine [Mass/Vol] 1.14 mg/dL Normal 0.70-1.30 [facility] ([place] Comment on above: Performed By: #### A DIFF, GFR, ANEU, MDW, BMP, CBC #### [address] [address] [address] Electrolyte Balance 12.0 mEq/L Normal 4.0-15.0 [facility] ([place]) Comment on above: Performed By: #### A DIFF, GFR, ANEU, MDW, BMP, CBC #### [address] [address] Globulin 3.3 G/dL Normal [facility] ([place]) Comment on above: Performed By: #### A DIFF, GFR, ANEU, MDW, BMP, CBC #### [address] [address] Glucose [Mass/Vol] 136 mg/dL High 70-105 [facility] ([place]) Comment on above: Performed By: #### A DIFF, GFR, ANEU, MDW, BMP, CBC #### [address] [address] Potassium [Moles/Vol] 4.6 mmol/L Normal 3.5-5.1 [facility] ([place]) Comment on above: Performed By: #### A DIFF, GFR, ANEU, MDW, BMP, CBC #### [address] [address] Sodium [Moles/Vol] 142 mmol/L Normal 136-145 [facility] ([place]) Comment on above: Performed By: #### A DIFF, GFR, ANEU, MDW, BMP, CBC #### [address] [place], [place] [address] Total Protein 7.7 G/dL Normal 6.4-8.2 [facility] ([place]) Comment on above: Performed By: #### A DIFF, GFR, ANEU, MDW, BMP, CBC #### [address] [place], [place] [address] Urea nitrogen [Mass/Vol] 13 mg/dL Normal 7-18 [facility] ([place]) Comment on above: Performed By: #### A DIFF, GFR, ANEU, MDW, BMP, CBC #### [address] [place], [place] [address] LABORATORYOrdered By: SYSTEM SYSTEM on 08-13-2023 Albumin BCP dye [Mass/Vol] 4.4 G/dL Invalid Interpretation Code 3.5 - 5.0 G/dL AO ADM SS Albumin/Globulin [Mass ratio] 1.3 {ratio} Invalid Interpretation Code 1.1 - 2.5 ratio AO ADM SS ALP [Catalytic activity/Vol] 69 U/L Invalid Interpretation Code 40 - 135 U/L AO ADM SS ALT With P-5'-P [Catalytic activity/Vol] 54 U/L Invalid Interpretation Code 16 - 63 U/L AO ADM SS AST With P-5'-P [Catalytic activity/Vol] 33 U/L Invalid Interpretation Code 10 - 40 U/L AO ADM SS Basophil, Absolute 0.1 103/mcL Invalid Interpretation Code 0.0 - 0.2 10^3/mcL AO Workflow SS Basophils/100 WBC (Bld) 0.7 % Invalid Interpretation Code 0.0 - 2.5 % AO Workflow SS Bilirubin [Mass/Vol] 0.6 mg/dL Invalid Interpretation Code 0.2 - 1.0 mg/dL AO ADM SS Comment on above: Interpretive Data: U se of this assay is not recommended for patients undergoing treatment with eltrombopag due to the potential for falsely elevated results. Calcium [Mass/Vol] 9.3 mg/dL Invalid Interpretation Code 8.4 - 10.2 mg/dL AO ADM SS Chloride [Moles/Vol] 102 mmol/L Invalid Interpretation Code 98 - 107 mmol/L AO ADM SS CO2 [Moles/Vol] 28 mmol/L Invalid Interpretation Code 22 - 29 mmol/L AO ADM SS Creatinine [Mass/Vol] 1.14 mg/dL Invalid Interpretation Code 0.70 - 1.30 mg/dL AO ADM SS Electrolyte Balance 12.0 mEq/L Invalid Interpretation Code 4.0 - 15.0 mEq/L AO ADM SS Eosinophil, Absolute 0.4 103/mcL Invalid Interpretation Code 0.0 - 0.4 10^3/mcL AO Workflow SS Eosinophils/100 WBC (Bld) 4.7 % Invalid Interpretation Code 0.0 - 7.0 % AO Workflow SS Erythrocyte distribution width (RBC) [Ratio] 13.5 % Invalid Interpretation Code 11.5 - 14.5 % AO Workflow SS GFR/1.73 sq M.predicted among blacks MDRD (S/P/Bld) [Vol rate/Area] 87 ml/min/1.73sqm Invalid Interpretation Code AO Chemistry S Comment on above: Interpretive Data: GFR Population mean for , Non- Americans Ages 20-29 = 116 mL/min/1.73 sq.m. Ages 30-39 = 107 mL/min/1.73 sq.m. Ages 40-49 = 99 mL/min/1.73 sq.m. Ages 50-59 = 93 mL/min/1.73 sq.m. Ages 60-69 = 85 mL/min/1.73 sq.m. Ages 70+ = 75 mL/min/1.73 sq.m. Chronic Kidney Disease: Less than 60 mL/min/1.73 square meters End Stage Renal Disease: Less than 15 mL/min/1.73 square meters GFR/1.73 sq M.predicted among non-blacks MDRD (S/P/Bld) [Vol rate/Area] 72 ml/min/1.73sqm Invalid Interpretation Code AO Chemistry S Comment on above: Interpretive Data: GFR Population mean for , Non- Americans Ages 20-29 = 116 mL/min/1.73 sq.m. Ages 30-39 = 107 mL/min/1.73 sq.m. Ages 40-49 = 99 mL/min/1.73 sq.m. Ages 50-59 = 93 mL/min/1.73 sq.m. Ages 60-69 = 85 mL/min/1.73 sq.m. Ages 70+ = 75 mL/min/1.73 sq.m. Chronic Kidney Disease: Less than 60 mL/min/1.73 square meters End Stage Renal Disease: Less than 15 mL/min/1.73 square meters Globulin 3.3 G/dL Invalid Interpretation Code AO ADM SS Glucose [Mass/Vol] 136 mg/dL Invalid Interpretation Code 70 - 105 mg/dL AO ADM SS Hematocrit (Bld) [Volume fraction] 43.5 % Invalid Interpretation Code 42.0 - 52.0 % AO Workflow SS Hemoglobin (Bld) [Mass/Vol] 14.9 G/dL Invalid Interpretation Code 14.0 - 18.0 G/dL AO Workflow SS Lymphocyte, Absolute 1.4 103/mcL Invalid Interpretation Code 0.8 - 3.9 10^3/mcL AO Workflow SS Lymphocytes/100 WBC (Bld) 17.3 % Invalid Interpretation Code 10.0 - 50.0 % AO Workflow SS MCH (RBC) [Entitic mass] 28.6 pg Invalid Interpretation Code 27.0 - 31.2 pg AO Workflow SS MCHC 34.3 G/dL Invalid Interpretation Code 31.8 - 35.4 G/dL AO Workflow SS MCV (RBC) [Entitic vol] 83.3 fL Invalid Interpretation Code 80.0 - 94.0 fL AO Workflow SS Monocyte, Absolute 0.7 103/mcL Invalid Interpretation Code 0.2 - 1.0 10^3/mcL AO Workflow SS Monocytes/100 WBC (Bld) 9.1 % Invalid Interpretation Code 1.7 - 13.0 % AO Workflow SS Neutrophil, Absolute 5.4 103/mcL Invalid Interpretation Code 2.9 - 6.2 10^3/mcL AO Workflow SS Neutrophils/100 WBC (Bld) 68.2 % Invalid Interpretation Code 37.0 - 80.0 % AO Workflow SS Platelet mean volume (Bld) [Entitic vol] 7.0 fL Invalid Interpretation Code 7.4 - 10.4 fL AO Workflow SS Platelets (Bld) [#/Vol] 260 103/mcL Invalid Interpretation Code 130 - 400 10^3/mcL AO Workflow SS Potassium [Moles/Vol] 4.6 mmol/L Invalid Interpretation Code 3.5 - 5.1 mmol/L AO ADM SS Protein [Mass/Vol] 7.7 G/dL Invalid Interpretation Code 6.4 - 8.2 G/dL AO ADM SS RBC (Bld) [#/Vol] 5.22 106/mcL Invalid Interpretation Code 4.04 - 6.13 10^6/mcL AO Workflow SS Sodium [Moles/Vol] 142 mmol/L Invalid Interpretation Code 136 - 145 mmol/L AO ADM SS Urea nitrogen [Mass/Vol] 13 mg/dL Invalid Interpretation Code 7 - 18 mg/dL AO ADM SS Urea nitrogen/Creatinine [Mass ratio] 11 ratio Invalid Interpretation Code 7 - 27 ratio AO ADM SS WBC (Bld) [#/Vol] 8.0 103/mcL Invalid Interpretation Code 4.6 - 10.8 10^3/mcL AO Workflow SS LABORATORYOrdered By: Neeta Bob on 08-13-2023 Cholesterol [Mass/Vol] 143 mg/dL Invalid Interpretation Code 0 - 200 mg/dL AO ADM SS Comment on above: Interpretive Data: C holesterol Reference Interval: Less than 200 Desirable 200-239 Borderline high risk 240 and above High risk Cholesterol in HDL [Mass/Vol] 33 mg/dL Invalid Interpretation Code 40 - 60 mg/dL AO ADM SS Cholesterol in LDL [Mass/Vol] 83 mg/dL Invalid Interpretation Code 0 - 130 mg/dL AO ADM SS Triglyceride [Mass/Vol] 134 mg/dL Invalid Interpretation Code 0 - 150 mg/dL AO ADM SS Comment on above: Interpretive Data: T riglyceride Reference Interval: Less than 150 Normal 150-199 Borderline high risk 200-499 High risk 500 or higher Very high risk LIPIDon 08-13-2023 Cholesterol [Mass/Vol] 143 mg/dL Normal 0-200 [facility] ([place]) Comment on above: Result Comment: Chol esterol Reference Interval: Less than 200 Desirable 200-239 Borderline high risk 240 and above High risk Performed By: #### A DIFF, GFR, NANO, MDW, BMP, CBC #### [address] [place], [place] [address] Cholesterol in HDL [Mass/Vol] 33 mg/dL Low 40-60 [facility] ([place]) Comment on above: Performed By: #### A DIFF, GFR, NANO, MDW, BMP, CBC #### [address] [place], [place] [address] Cholesterol in LDL [Mass/Vol] 83 mg/dL Normal 0-130 [facility] ([place]) Comment on above: Performed By: #### A DIFF, GFR, YAO MCGILL, BMP, CBC #### [address] [address] Triglyceride [Mass/Vol] 134 mg/dL Normal 0-150 [facility] ([place]) Comment on above: Result Comment: Trig lyceride Reference Interval: Less than 150 Normal 150-199 Borderline high risk 200-499 High risk 500 or higher Very high risk Performed By: #### A DIFF, GFR, YAO MCGILL, BMP, CBC #### [address] [place], [place] [address] MALBRon 08-13-2023 U Creatinine 113.5 mg/dL Normal 39.0-259.0 [facility] ([place]) Comment on above: Performed By: #### A DIFF, GFR, NANO, YAO, BMP, CBC #### [address] [address] U Microalb 1426 mcg/dL Normal [facility] ([place]) Comment on above: Performed By: #### A DIFF, GFR, NANO, YAO, BMP, CBC #### [address] [address] U Ratio Alb/Cre 13 mcg/mg Normal 0-30 [facility] ([place]) Comment on above: Performed By: #### A DIFF, GFR, YAO MCGILL, BMP, CBC #### [address] [address] LABORATORYOrdered By: SYSTEM SYSTEM on 05-27-2023 Calcium [Mass/Vol] 9.5 mg/dL Invalid Interpretation Code 8.4 - 10.2 mg/dL AO ADM SS Chloride [Moles/Vol] 103 mmol/L Invalid Interpretation Code 98 - 107 mmol/L AO ADM SS CO2 [Moles/Vol] 28 mmol/L Invalid Interpretation Code 22 - 29 mmol/L AO ADM SS Creatinine [Mass/Vol] 0.90 mg/dL Invalid Interpretation Code 0.70 - 1.30 mg/dL AO ADM SS Electrolyte Balance 9.0 mEq/L Invalid Interpretation Code 4.0 - 15.0 mEq/L AO ADM SS GFR/1.73 sq M.predicted among blacks MDRD (S/P/Bld) [Vol rate/Area] 114 ml/min/1.73sqm Invalid Interpretation Code AO Chemistry S GFR/1.73 sq M.predicted among non-blacks MDRD (S/P/Bld) [Vol rate/Area] 94 ml/min/1.73sqm Invalid Interpretation Code AO Chemistry S Glucose [Mass/Vol] 163 mg/dL Invalid Interpretation Code 70 - 105 mg/dL AO ADM SS Potassium [Moles/Vol] 4.1 mmol/L Invalid Interpretation Code 3.5 - 5.1 mmol/L AO ADM SS Sodium [Moles/Vol] 140 mmol/L Invalid Interpretation Code 136 - 145 mmol/L AO ADM SS Urea nitrogen [Mass/Vol] 13 mg/dL Invalid Interpretation Code 7 - 18 mg/dL AO ADM SS Urea nitrogen/Creatinine [Mass ratio] 14 ratio Invalid Interpretation Code 7 - 27 ratio AO ADM SS Glucose Glucometer (BldC) [M ass/Vol]Ordered By: Dr. Aquino on 05-10-2023 Glucose [Mass/Vol] 165 mg/dL 74-106 [facility] Comment on above: MANAGEMENT OF PATIEN T CARE PER NURSING PROTOCOL Glucose Glucometer (BldC) [M ass/Vol]Ordered By: Dr. Aquino on 01-11-2023 Glucose [Mass/Vol] 151 mg/dL 74-106 [facility] Comment on above: MANAGEMENT OF PATIEN T CARE PER NURSING PROTOCOL LABORATORYOrdered By: Antoni Mckeon on 05-14-2022 Albumin BCP dye [Mass/Vol] 4.5 G/dL Invalid Interpretation Code 3.5 - 5.0 G/dL AO ADM SS Albumin/Globulin [Mass ratio] 1.6 {ratio} Invalid Interpretation Code 1.1 - 2.5 ratio AO ADM SS ALP [Catalytic activity/Vol] 67 U/L Invalid Interpretation Code 40 - 135 U/L AO ADM SS ALT With P-5'-P [Catalytic activity/Vol] 54 U/L Invalid Interpretation Code 16 - 63 U/L AO ADM SS AST With P-5'-P [Catalytic activity/Vol] 21 U/L Invalid Interpretation Code 10 - 40 U/L AO ADM SS Bilirubin [Mass/Vol] 0.4 mg/dL Invalid Interpretation Code 0.2 - 1.0 mg/dL AO ADM SS Calcium [Mass/Vol] 9.3 mg/dL Invalid Interpretation Code 8.4 - 10.2 mg/dL AO ADM SS Chloride [Moles/Vol] 103 mmol/L Invalid Interpretation Code 98 - 107 mmol/L AO ADM SS Cholesterol [Mass/Vol] 197 mg/dL Invalid Interpretation Code 0 - 200 mg/dL AO ADM SS Cholesterol in HDL [Mass/Vol] 39 mg/dL Invalid Interpretation Code 40 - 60 mg/dL AO ADM SS Cholesterol in LDL [Mass/Vol] 113 mg/dL Invalid Interpretation Code 0 - 130 mg/dL AO ADM SS CO2 [Moles/Vol] 27 mmol/L Invalid Interpretation Code 22 - 29 mmol/L AO ADM SS Creatinine [Mass/Vol] 1.01 mg/dL Invalid Interpretation Code 0.70 - 1.30 mg/dL AO ADM SS Electrolyte Balance 13.0 mEq/L Invalid Interpretation Code 4.0 - 15.0 mEq/L AO ADM SS Globulin 2.8 G/dL Invalid Interpretation Code AO ADM SS Glucose [Mass/Vol] 88 mg/dL Invalid Interpretation Code 70 - 105 mg/dL AO ADM SS Potassium [Moles/Vol] 3.8 mmol/L Invalid Interpretation Code 3.5 - 5.1 mmol/L AO ADM SS Protein [Mass/Vol] 7.3 G/dL Invalid Interpretation Code 6.4 - 8.2 G/dL AO ADM SS Sodium [Moles/Vol] 143 mmol/L Invalid Interpretation Code 136 - 145 mmol/L AO ADM SS Triglyceride [Mass/Vol] 226 mg/dL Invalid Interpretation Code 0 - 150 mg/dL AO ADM SS Urea nitrogen [Mass/Vol] 12 mg/dL Invalid Interpretation Code 7 - 18 mg/dL AO ADM SS Urea nitrogen/Creatinine [Mass ratio] 12 ratio Invalid Interpretation Code 7 - 27 ratio AO ADM SS LABORATORYOrdered By: Toshia Singleton on 05-14-2022 Basophil, Absolute 0.0 103/mcL Invalid Interpretation Code 0.0 - 0.2 10^3/mcL AO Workflow SS Basophils/100 WBC (Bld) 0.8 % Invalid Interpretation Code 0.0 - 2.5 % AO Workflow SS Eosinophil, Absolute 0.2 103/mcL Invalid Interpretation Code 0.0 - 0.4 10^3/mcL AO Workflow SS Eosinophils/100 WBC (Bld) 4.1 % Invalid Interpretation Code 0.0 - 7.0 % AO Workflow SS Erythrocyte distribution width (RBC) [Ratio] 13.2 % Invalid Interpretation Code 11.5 - 14.5 % AO Workflow SS Hematocrit (Bld) [Volume fraction] 44.4 % Invalid Interpretation Code 42.0 - 52.0 % AO Workflow SS Hemoglobin (Bld) [Mass/Vol] 15.7 G/dL Invalid Interpretation Code 14.0 - 18.0 G/dL AO Workflow SS Lymphocyte, Absolute 2.0 103/mcL Invalid Interpretation Code 0.8 - 3.9 10^3/mcL AO Workflow SS Lymphocytes/100 WBC (Bld) 33.8 % Invalid Interpretation Code 10.0 - 50.0 % AO Workflow SS MCH (RBC) [Entitic mass] 29.4 pg Invalid Interpretation Code 27.0 - 31.2 pg AO Workflow SS MCHC 35.4 G/dL Invalid Interpretation Code 31.8 - 35.4 G/dL AO Workflow SS MCV (RBC) [Entitic vol] 83.2 fL Invalid Interpretation Code 80.0 - 94.0 fL AO Workflow SS Monocyte, Absolute 0.7 103/mcL Invalid Interpretation Code 0.2 - 1.0 10^3/mcL AO Workflow SS Monocytes/100 WBC (Bld) 11.3 % Invalid Interpretation Code 1.7 - 13.0 % AO Workflow SS Neutrophil, Absolute 3.0 103/mcL Invalid Interpretation Code 2.9 - 6.2 10^3/mcL AO Workflow SS Neutrophils/100 WBC (Bld) 50.0 % Invalid Interpretation Code 37.0 - 80.0 % AO Workflow SS Platelet mean volume (Bld) [Entitic vol] 7.1 fL Invalid Interpretation Code 7.4 - 10.4 fL AO Workflow SS Platelets (Bld) [#/Vol] 285 103/mcL Invalid Interpretation Code 130 - 400 10^3/mcL AO Workflow SS RBC (Bld) [#/Vol] 5.33 106/mcL Invalid Interpretation Code 4.04 - 6.13 10^6/mcL AO Workflow SS WBC 6.1 103/mcL Invalid Interpretation Code 4.6 - 10.8 10^3/mcL AO Workflow SS LABORATORYOrdered By: SYSTEM SYSTEM on 05-14-2022 GFR 101 ml/min/1.73sqm Invalid Interpretation Code AO Chemistry S GFR Non- 83 ml/min/1.73sqm Invalid Interpretation Code AO Chemistry S Monocyte distribution width Auto (Bld) [Entitic vol] Not Performed 1 *NA* (05/14/22 10:19 AM) Invalid Interpretation Code 0.00 - 20.00 AO Hematology S Comment on above: Result Comment: MDW testing performed only on adult ER patients between the ages of 18-89 years. LABORATORYOrdered By: Malcolm Atkins on 05-14-2022 HbA1c (Bld) [Mass fraction] 6.9 % Invalid Interpretation Code 4.3 - 6.4 % AO ADM SS CBC with Auto Differentialon 05-07-2022 Absolute Baso # 0.0 10*3/uL 0.0 - 0.2 10*3/uL [facility] Work Phone: 1 22 Absolute Neut # 3.1 10*3/uL 1.8 - 7.0 10*3/uL [facility] Work Phone: 1 22 Basophils/100 WBC (Bld) 0.4 % 0.0 - 2.0 % [facility] Work Phone: 22 Eosinophils (Bld) [#/Vol] 0.2 10*3/uL 0.0 - 0.5 10*3/uL [facility] Work Phone: 1) 22 Eosinophils/100 WBC (Bld) 3.3 % 1.0 - 6.0 % [facility] Work Phone: ) 22 Granulocytes/100 WBC (Bld) 67.9 % 40.0 - 80.0 % [facility] Work Phone: 1 22 Hematocrit (Bld) [Volume fraction] 46.4 % 40.0 - 52.0 % [facility] Work Phone: 22 Hemoglobin (Bld) [Mass/Vol] 17.1 g/dL 13.0 - 18.0 g/dL [facility] Work Phone: 1 22 Interpretation and review of laboratory results Abnormal [facility] Work Phone: 1 22 Lymphocytes (Bld) [#/Vol] 1.0 10*3/uL 1.0 - 4.3 10*3/uL [facility] Work Phone: 1 22 Lymphocytes/100 WBC (Bld) 22.4 % 20.0 - 40.0 % [facility] Work Phone: 1 22 MCH (RBC) [Entitic mass] 30.0 pg 26.0 - 34.0 pg [facility] Work Phone: MCHC (RBC) [Mass/Vol] 36.9 % High 32.0 - 36.0 % [facility] Work Phone: MCV (RBC) [Entitic vol] 81.4 fL 80.0 - 98.0 fL [facility] Work Phone: Monocytes (Bld) [#/Vol] 0.3 10*3/uL 0.0 - 0.8 10*3/uL [facility] Work Phone: 1 Monocytes/100 WBC (Bld) 5.8 % 2.0 - 10.0 % [facility] Work Phone: Platelet distribution width (Bld) [Ratio] 12.7 % 11.5 - 14.5 % [facility] Work Phone: Platelet mean volume (Bld) [Entitic vol] 8.8 fL 7.4 - 12.4 fL [facility] Work Phone: Comment on above: MPV is a calculated measurement using platelet volume ratio. Platelets (Bld) [#/Vol] 231 10*3/uL 140 - 440 10*3/uL [facility] Work Phone: RBC (Bld) [#/Vol] 5.70 10*6/uL 4.40 - 5.9 0 10*6/uL [facility] Work Phone: WBC (Bld) [#/Vol] 4.5 10*3/uL 3.6 - 10.7 10*3/uL [facility] Work Phone: Test Performed by [facility], [address] [place], [place] [address] , [address] LAB [facility] Work Phone: CR Chest Portableon 05-07-20 22 CR Chest Portable Patient Name: LEONEL LAKE Diagnostic Radiology ACCESSION EXAM DATE/TIME PROCEDURE ORDERING PROVIDER [id number] 05/07/2022 20:35 EDT CR Chest Portable MD ALYSSA, GARTH CPT code 45057 Reason For Exam (CR Chest Portable) vomiting Report PORTABLE CHEST (Frontal View) History: Dyspnea, vomiting Comparison: 01/20/2022 Findings: Frontal portable chest view shows coarsening of the interstitial markings without acute infiltrate or congestion. The heart is normal in size. There is no mediastinal widening or pleural effusion. IMPRESSION: No acute pulmonary process. Report Dictated on Final Dictating Physician: MD PINTO AHMAD Signed Date and Time: 05/07/2022 8:42 pm Signed by: MD PINTO AHMAD Transcribed Date and Time: 05/07/2022 8:43 Normal [facility] Comp Metabolic Panelon 05-07 Calcium [Mass/Vol] 10.0 mg/dL Normal 8.4-10.4 [facility] Comment on above: Performed By: #### H EMDF, CMP3, LIPA4, TROPN #### [facility] [address] [place] [address] ALP [Catalytic activity/Vol] 72 U/L Normal 38-126 [facility] Comment on above: Performed By: #### H EMDF, CMP3, LIPA4, TROPN #### [facility] [address] [place] [address] ALT [Catalytic activity/Vol] 65 U/L High 0-49 [facility] Comment on above: Result Comment: The ALT test is performed by an updated assay method. Please note that the reference intervals have been changed and are now sex specific. Performed By: #### H EMDF, CMP3, LIPA4, TROPN #### [facility] [address] [place] [address] Anion gap [Moles/Vol] 12 mmol/L Normal 3-13 [facility] Comment on above: Performed By: #### H EMDF, CMP3, LIPA4, TROPN #### [facility] [address] [place] [address] AST [Catalytic activity/Vol] 50 U/L High 15-46 [facility] Comment on above: Performed By: #### H EMDF, CMP3, LIPA4, TROPN #### [facility] [address] [place] [address] Bilirubin [Mass/Vol] 0.8 mg/dL Normal 0.2-1.3 [facility] Comment on above: Performed By: #### H EMDF, CMP3, LIPA4, TROPN #### [facility] [address] [place] [address] CO2 [Moles/Vol] 20 mmol/L Low 22-30 [facility] Comment on above: Performed By: #### H EMDF, CMP3, LIPA4, TROPN #### [facility] [address] [place] [address] Creatinine [Mass/Vol] 0.77 mg/dL Normal 0.52-1.25 [facility] Comment on above: Performed By: #### H EMDF, CMP3, LIPA4, TROPN #### [facility] [address] [place] [address] eGFR OTHER > 90.0 Normal >60 [facility] Comment on above: Result Comment: KDIG O guidelines provide the following GFR categories: Stage GFR(ml/min/1.73 m2) Terms G1 >=90 Normal or high G2 60-89 Mildly decreased* G3a 45-59 Mildly to moderately decreased G3b 30-44 Moderately to severely decreased G4 15-29 Severely decreased G5 <15 Kidney failure *Relative to young adult level. In the absence of evidence of kidney damage, neither GFR category G1 nor G2 fulfill the criteria for CKD. The CKD-EPI equation is validated in individuals 18 years of age and older. Currently the best equation for estimating glomerular filtration rate (GFR) from serum creatinine in children is the Bedside Voss equation. It is less accurate in patients with extremes of muscle mass, restriction of dietary protein, ingestion of creatine, extra-renal metabolism of creatinine, or treatment with medications that affect renal tubular creatinine secretion. Performed By: #### H EMDF, CMP3, LIPA4, TROPN #### [facility] [address] [place] [address] GFR/1.73 sq M.predicted among blacks MDRD (S/P/Bld) [Vol rate/Area] mL/min/{1.73_m2} Normal >60 [facility] Comment on above: Performed By: #### H EMDF, CMP3, LIPA4, TROPN #### [facility] [address] [place] [address] Glucose [Mass/Vol] 221 mg/dL High 70-100 [facility] Comment on above: Performed By: #### H EMDF, CMP3, LIPA4, TROPN #### [facility] [address] [place] [address] Protein [Mass/Vol] 7.9 g/dL Normal 6.3-8.2 [facility] Comment on above: Performed By: #### H EMDF, CMP3, LIPA4, TROPN #### [facility] [address] [place] [address] Urea nitrogen [Mass/Vol] 15 mg/dL Normal 7-17 [facility] Comment on above: Performed By: #### H EMDF, CMP3, LIPA4, TROPN #### [facility] [address] [place] [address] Albumin [Mass/Vol] 4.7 g/dL Normal 3.5-5.0 [facility] Comment on above: Performed By: #### H EMDF, CMP3, LIPA4, TROPN #### [facility] [address] [place] [address] Chloride [Moles/Vol] 106 mmol/L Normal 98-107 [facility] Comment on above: Performed By: #### H EMDF, CMP3, LIPA4, TROPN #### [facility] [address] [place] [address] Sodium [Moles/Vol] 139 mmol/L Normal 135-145 [facility] Comment on above: Performed By: #### H EMDF, CMP3, LIPA4, TROPN #### [facility] [address] [place] [address] Potassium [Moles/Vol] 3.7 mmol/L Normal 3.5-5.1 [facility] Work Phone: Comment on above: Performed By: #### H EMDF, CMP3, LIPA4, TROPN #### [facility] [address] [place] [address] Complete Urinalysison 2021 Appearance (U) Clear Normal Clear [facility] Comment on above: Result Comment: . Performed By: #### C UA2 #### [facility] [address] [place] [address] Bilirubin,Urine Negative Normal Negative [facility] Comment on above: Result Comment: . Performed By: #### C UA2 #### [facility] [address] [place] [address] Color (U) LIGHT YELLOW Normal Lt. Yellow [facility] Comment on above: Result Comment: . Performed By: #### C UA2 #### [facility] [address] [place] [address] Glucose Ql (U) > 1,000 Abnormal Normal (<70) [facility] Comment on above: Result Comment: . Performed By: #### C UA2 #### [facility] [address] [place] [address] Ketone,Urine Negative Normal Negative [facility] Comment on above: Result Comment: . Performed By: #### C UA2 #### [facility] [address] [place] [address] Leukocytes,Urine Negative Normal Negative [facility] Comment on above: Result Comment: . Performed By: #### C UA2 #### [facility] [address] [place] [address] Nitrites,Urine Negative Normal Negative [facility] Comment on above: Result Comment: . Performed By: #### C UA2 #### [facility] [address] [place] [address] Occult Blood,Urine Negative Normal Negative [facility] Comment on above: Result Comment: . Performed By: #### C UA2 #### [facility] [address] [place] [address] pH,Urine 7.5 Normal 5.0-8.0 [facility] Comment on above: Result Comment: . Performed By: #### C UA2 #### [facility] [address] [place] [address] Specific [place],Urine > 1.030 Abnormal 1.005 - 1.030 [facility] Comment on above: Result Comment: . Performed By: #### C UA2 #### [facility] [address] [place] [address] Total Protein,Urine Negative Normal Negative [facility] Comment on above: Result Comment: . Performed By: #### C UA2 #### [facility] [address] [place] [address] Urobilinogen,Urine Normal Normal Normal (0-1) [facility] Comment on above: Result Comment: . Performed By: #### C UA2 #### [facility] [address] [place] [address] Comprehensive Metabolic Pane [facility] 05-07-2022 Albumin [Mass/Vol] 4.7 g/dL 3.5 - 5.0 g/dL [facility] Work Phone: [phone] ALP (Bld) [Catalytic activity/Vol] 72 U/L 38 - 126 U/L [facility] Work Phone: [phone] ALT [Catalytic activity/Vol] 65 U/L High 0 - 49 U/L [facility] Work Phone: [phone] Comment on above: The ALT test is perf ormed by an updated assay method. Please note that the reference intervals have been changed and are now sex specific. Anion gap [Moles/Vol] 12 mmol/L 3 - 13 mmol/L [facility] Work Phone: AST [Catalytic activity/Vol] 50 U/L High 15 - 46 U/L [facility] Work Phone: [phone] Bilirubin [Mass/Vol] 0.8 mg/dL 0.2 - 1 .3 mg/dL [facility] Work Phone: [phone] Calcium [Mass/Vol] 10.0 mg/dL 8.4 - 10. 4 mg/dL [facility] Work Phone: [phone] Chloride [Moles/Vol] 106 mmol/L 98 - 10 7 mmol/L [facility] Work Phone: [phone] CO2 [Moles/Vol] 20 mmol/L Low 22 - 30 mmol/L [facility] Work Phone: [phone] Creatinine [Mass/Vol] 0.77 mg/dL 0.52 - 1.25 mg/dL [facility] Work Phone: [phone] EGFR IF NonAfrican [place] >90.0 >60 mL/min [facility] Work Phone: [phone] Comment on above: KDIGO guidelines pro vide the following GFR categories: Stage GFR(ml/min/1.73 m2) Terms G1 >=90 Normal or high G2 60-89 Mildly decreased* G3a 45-59 Mildly to moderately decreased G3b 30-44 Moderately to severely decreased G4 15-29 Severely decreased G5 <15 Kidney failure *Relative to young adult level. In the absence of evidence of kidney damage, neither GFR category G1 nor G2 fulfill the criteria for CKD. The CKD-EPI equation is validated in individuals 18 years of age and older. Currently the best equation for estimating glomerular filtration rate (GFR) from serum creatinine in children is the Bedside Voss equation. It is less accurate in patients with extremes of muscle mass, restriction of dietary protein, ingestion of creatine, extra-renal metabolism of creatinine, or treatment with medications that affect renal tubular creatinine secretion. Free PSA/Total PSA [Mass fraction] 7.9 g/dL 6.3 - 8.2 g/dL [facility] Work Phone: [phone] GFR/1.73 sq M.predicted among blacks MDRD (S/P/Bld) [Vol rate/Area] mL/min/{1.73_m2} >60 mL/min [facility] Work Phone: [phone] Glucose [Mass/Vol] 221 mg/dL High 70 - 100 mg/dL [facility] Work Phone: [phone] Interpretation and review of laboratory results Abnormal [facility] Work Phone: [phone] Sodium [Moles/Vol] 139 mmol/L 135 - 145 mmol/L [facility] Work Phone: [phone] Urea nitrogen (BldV) [Mass/Vol] 15 mg/dL 7 - 17 mg/dL [facility] Work Phone: [phone] Hemogram w/ Autodiffon 05-07 Abs Baso Cnt 0.0 10*3/uL Normal 0.0-0.2 [facility] Comment on above: Performed By: #### H EMDF, CMP3, LIPA4, TROPN #### [facility] [address] [place] [address] Abs Neutrophile Cnt 3.1 10*3/uL Normal 1.8-7.0 [facility] Comment on above: Performed By: #### H EMDF, CMP3, LIPA4, TROPN #### [facility] [address] [place] [address] Basophils/100 WBC (Bld) 0.4 % Normal 0.0-2.0 [facility] Comment on above: Performed By: #### H EMDF, CMP3, LIPA4, TROPN #### [facility] [address] [place] [address] Eosinophils (Bld) [#/Vol] 0.2 10*3/uL Normal 0.0-0.5 [facility] Comment on above: Performed By: #### H EMDF, CMP3, LIPA4, TROPN #### [facility] [address] [place] [address] Eosinophils/100 WBC (Bld) 3.3 % Normal 1.0-6.0 [facility] Comment on above: Performed By: #### H EMDF, CMP3, LIPA4, TROPN #### [facility] [address] [place] [address] Erythrocyte distribution width (RBC) [Ratio] 12.7 % Normal 11.5-14.5 [facility] Comment on above: Performed By: #### H EMDF, CMP3, LIPA4, TROPN #### [facility] [address] [place] [address] Granulocytes/100 WBC (Bld) 67.9 % Normal 40.0-80.0 [facility] Comment on above: Performed By: #### H EMDF, CMP3, LIPA4, TROPN #### [facility] [address] [place] [address] Hematocrit (Bld) [Volume fraction] 46.4 % Normal 40.0-52.0 [facility] Comment on above: Performed By: #### H EMDF, CMP3, LIPA4, TROPN #### [facility] [address] [place] [address] Hemoglobin (Bld) [Mass/Vol] 17.1 g/dL Normal 13.0-18.0 [facility] Comment on above: Performed By: #### H EMDF, CMP3, LIPA4, TROPN #### [facility] [address] [place] [address] Lymphocytes (Bld) [#/Vol] 1.0 10*3/uL Normal 1.0-4.3 [facility] Comment on above: Performed By: #### H EMDF, CMP3, LIPA4, TROPN #### [facility] [address] [place] [address] Lymphocytes/100 WBC (Bld) 22.4 % Normal 20.0-40.0 [facility] Comment on above: Performed By: #### H EMDF, CMP3, LIPA4, TROPN #### [facility] [address] [place] [address] MCH (RBC) [Entitic mass] 30.0 pg Normal 26.0-34.0 [facility] Comment on above: Performed By: #### H EMDF, CMP3, LIPA4, TROPN #### [facility] [address] [place] [address] MCHC 36.9 % High 32.0-36.0 [facility] Comment on above: Performed By: #### H EMDF, CMP3, LIPA4, TROPN #### [facility] [address] [place] [address] MCV (RBC) [Entitic vol] 81.4 fL Normal 80.0-98.0 [facility] Comment on above: Performed By: #### H EMDF, CMP3, LIPA4, TROPN #### [facility] [address] [place] [address] Monocytes (Bld) [#/Vol] 0.3 10*3/uL Normal 0.0-0.8 [facility] Comment on above: Performed By: #### H EMDF, CMP3, LIPA4, TROPN #### [facility] [address] [place] [address] Monocytes/100 WBC (Bld) 5.8 % Normal 2.0-10.0 [facility] Comment on above: Performed By: #### H EMDF, CMP3, LIPA4, TROPN #### [facility] [address] [place] [address] Platelet mean volume (Bld) [Entitic vol] 8.8 fL Normal 7.4-12.4 [facility] Comment on above: Result Comment: MPV is a calculated measurement using platelet volume ratio. Performed By: #### H EMDF, CMP3, LIPA4, TROPN #### [facility] [address] [place] [address] Platelets (Bld) [#/Vol] 231 10*3/uL Normal 140-440 [facility] Comment on above: Performed By: #### H EMDF, CMP3, LIPA4, TROPN #### [facility] [address] [place] [address] RBC (Bld) [#/Vol] 5.70 10*6/uL Normal 4.40-5.90 [facility] Comment on above: Performed By: #### H EMDF, CMP3, LIPA4, TROPN #### [facility] [address] [place] [address] WBC (Bld) [#/Vol] 4.5 10*3/uL Normal 3.6-10.7 [facility] Comment on above: Performed By: #### H EMDF, CMP3, LIPA4, TROPN #### [facility] [address] [place] [address] Lipaseon 05-07-2022 Lipase [Catalytic activity/Vol] 137 U/L Normal 23-300 [facility] Comment on above: Performed By: #### H EMDF, CMP3, LIPA4, TROPN #### [facility] [address] [place] [address] Lipase [Catalytic activity/Vol] 137 U/L 23 - 300 U/L [facility] Work Phone: [phone] No Panel Informationon 05-07 Test Performed by [facility] [employer] [facility], [address] , [address] LAB [facility] Work Phone: [phone] Troponin Ion 05-07-2022 Troponin I.cardiac [Mass/Vol] ng/mL Normal 0.000-0.034 [facility] [employer] Comment on above: Result Comment: . Performed By: #### H EMDF, CMP3, LIPA4, TROPN #### [facility] [employer] [address] [place] [address] Troponin x1on 05-07-2022 Troponin I.cardiac [Mass/Vol] ng/mL 0.000 - 0.034 ng/mL [facility] Work Phone: [phone] Comment on above: . Test Performed by [facility] [employer], [address] , [address] LAB [facility] Work Phone: [phone] Urinalysison 05-07-2022 Appearance (U) Clear Clear NA [facility] Work Phone: [phone] Comment on above: . Bilirubin Urine Negative Negative mg/dL [facility] Work Phone: [phone] Comment on above: . Color (U) LIGHT YELLOW Lt. Yellow NA [facility] Work Phone: [phone] Comment on above: . Glucose, Ur >1,000 Abnormal Normal (<70) mg/dL [facility] Work Phone: [phone] Comment on above: . Interpretation and review of laboratory results Abnormal [facility] Work Phone: [phone] Ql (U) Negative Negative mg/dL [facility] Work Phone: [phone] Comment on above: . LEUKOCYTES, UA Negative Negative Amish/uL [facility] Work Phone: [phone] Comment on above: . Nitrite, Urine Negative Negative NA [facility] Work Phone: [phone] Comment on above: . Occult Blood,Urine Negative Negative mg/dL [facility] Work Phone: [phone] Comment on above: . pH (U) 7.5 [pH] [facility] Work Phone: [phone] Comment on above: . Specific [place], Urine >1.030 Abnormal [facility] Work Phone: [phone] Comment on above: . Total Protein, Urine Negative Negativ e mg/dL [facility] Work Phone: [phone] Comment on above: . Urobilinogen, Urine Normal Normal ( 0-1) mg/dL [facility] Work Phone: [phone] Comment on above: . Test Performed by [facility], [address] , [place], [place] [id number] [place] [address] LAB [facility] Work Phone: [phone] XR CHEST PORTABLEon 05-07-20 Patient Name: LEONEL LAKE Diagnostic Radiology ACCESSION EXAM DATE/TIME PROCEDURE ORDERING PROVIDER [id number] 05/07/2022 20:35 EDT CR Chest Portable MD SHAH VIJAY CPT code 64805 Reason For Exam (CR Chest Portable) vomiting Report PORTABLE CHEST (Frontal View) History: Dyspnea, vomiting Comparison: 01/20/2022 Findings: Frontal portable chest view shows coarsening of the interstitial markings without acute infiltrate or congestion. The heart is normal in size. There is no mediastinal widening or pleural effusion. IMPRESSION: No acute pulmonary process. Report Dictated on --- Final --- Dictating Physician: MD PINTO AHMAD Signed Date and Time: 05/07/2022 8:42 pm Signed by: MD PINTO AHMAD Transcribed Date and Time: 05/07/2022 8:43 [facility] Anika Pinto MD - 05/07/2022 Patient Name: LEONEL [facility] Diagnostic Radiology ACCESSION EXAM DATE/TIME PROCEDURE ORDERING PROVIDER [id number] 05/07/2022 20:35 EDT CR Chest Portable MD SHAH VIJAY CPT code 33526 Reason For Exam (CR Chest Portable) vomiting Report PORTABLE CHEST (Frontal View) History: Dyspnea, vomiting Comparison: 01/20/2022 Findings: Frontal portable chest view shows coarsening of the interstitial markings without acute infiltrate or congestion. The heart is normal in size. There is no mediastinal widening or pleural effusion. IMPRESSION: No acute pulmonary process. Report Dictated on --- Final --- Dictating Physician: MD PINTO AHMAD Signed Date and Time: 05/07/2022 8:42 pm Signed by: MD PINTO AHMAD Transcribed Date and Time: 05/07/2022 8:43 [facility] Work Phone: Radiology Study observation (narrative) [facility] Work Phone: XR CHEST PORTABLEOrdered By: Anika Pinto on 05-07-2022 [facility] Work Phone: CR Chest PA/LATon 01-20-2022 CR Chest PA/LAT Patient Name: [facility] Diagnostic Radiology ACCESSION EXAM DATE/TIME PROCEDURE ORDERING PROVIDER [id number] 01/20/2022 18:33 EST CR Chest PA and LAT MD SHASHI, JASON CPT code 99745 Reason For Exam (CR Chest PA and LAT) chest pain Report CHEST X-RAY PA/LATERAL CLINICAL INDICATION: chest pain Frontal and lateral plain films of the chest were obtained. COMPARISON: 03/08/2021 FINDINGS: Cardiomediastinal silhouette: Normal Lungs: Clear. Bones: Unremarkable IMPRESSION: No acute cardiopulmonary disease. 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1985 Requested By: JASON JARRETT Order Number: [id number] Reading MD: Jason Jarrett Measurements Intervals [place] Rate: 82 P: 22 IN: 152 QRS: -31 QRSD: 88 T: 23 QT: 368 QTc: 430 Interpretive Statements SINUS RHYTHM LEFT AXIS DEVIATION EARLY PRECORDIAL R/S TRANSITION Compared to ECG 03/08/2021 15:55:07 EARLY PRECORDIAL R/S TRANSITION Electronically Signed On 01-20-2022 18:19:32 EST by Jason PHILLIPS CARDIOLOGY Jason Jarrett MD - 01/20/2022 [place] Test Date: 2022-01-20 Pat Name: LEONEL LAKE Department: 2BED Room: 06 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1985 Requested By: JASON JARRETT Order Number: [id number] Reading MD: Jason Jarrett Measurements Intervals [place] Rate: 82 P: 22 IN: 152 QRS: -31 QRSD: 88 T: 23 QT: 368 QTc: 430 Interpretive Statements SINUS RHYTHM LEFT AXIS DEVIATION EARLY PRECORDIAL R/S TRANSITION Compared to ECG 03/08/2021 15:55:07 EARLY PRECORDIAL R/S TRANSITION Electronically Signed On 01-20-2022 18:19:32 EST by Jason PHILLIPS Work Phone: [facility] Work Phone: XR CHEST (2 VW)on 01-20-2022 Patient Name: [facility] Diagnostic Radiology ACCESSION EXAM DATE/TIME PROCEDURE ORDERING PROVIDER [id number] 01/20/2022 18:33 EST CR Chest PA & LAT MD JARRETT NISHIT CPT code 28041 Reason For Exam (CR Chest PA & LAT) chest pain Report CHEST X-RAY PA/LATERAL CLINICAL INDICATION: chest pain Frontal and lateral plain films of the chest were obtained. COMPARISON: 03/08/2021 FINDINGS: Cardiomediastinal silhouette: Normal Lungs: Clear. Bones: Unremarkable IMPRESSION: No acute cardiopulmonary disease. Report Dictated on --- Final --- Dictating Physician: MD FRENCH THOMAS Signed Date and Time: 01/20/2022 6:43 pm Signed by: MD FRENCH THOMAS Transcribed Date and Time: 01/20/2022 6:44 [facility] RAD Donta French M D - 01/20/2022 Patient Name: LEONEL LAKE [facility]#: [id number] Diagnostic Radiology ACCESSION EXAM DATE/TIME PROCEDURE ORDERING PROVIDER [id number] 01/20/2022 18:33 EST CR Chest PA & LAT MD SHASHI, [facility] CPT code 42195 Reason For Exam (CR Chest PA & LAT) chest pain Report CHEST X-RAY PA/LATERAL CLINICAL INDICATION: chest pain Frontal and lateral plain films of the chest were obtained. COMPARISON: 03/08/2021 FINDINGS: Cardiomediastinal silhouette: Normal Lungs: Clear. Bones: Unremarkable IMPRESSION: No acute cardiopulmonary disease. Report Dictated on --- Final --- Dictating Physician: MD FRENCH THOMAS Signed Date and Time: 01/20/2022 6:43 pm Signed by: MD FRENCH THOMAS Transcribed Date and Time: 01/20/2022 6:44 [facility] Work Phone: Radiology Study observation (narrative) [facility] Work Phone: XR CHEST (2 VW)Ordered By: Geovany French on 01-20-2022 [facility] Work Phone: LABORATORYOrdered By: Rosamaria Charles on 01-07-2022 Albumin BCP dye [Mass/Vol] 4.0 G/dL Invalid Interpretation Code 3.5 - 5.0 G/dL AO ADM SS Albumin/Globulin [Mass ratio] 1.3 {ratio} Invalid Interpretation Code 1.1 - 2.5 ratio AO ADM SS ALP [Catalytic activity/Vol] 86 U/L Invalid Interpretation Code 40 - 135 U/L AO ADM SS ALT With P-5'-P [Catalytic activity/Vol] 71 U/L Invalid Interpretation Code 16 - 63 U/L AO ADM SS Amylase [Catalytic activity/Vol] 27 U/L Invalid Interpretation Code 25 - 115 U/L AO ADM SS AST With P-5'-P [Catalytic activity/Vol] 25 U/L Invalid Interpretation Code 10 - 40 U/L AO ADM SS Bilirubin [Mass/Vol] 0.7 mg/dL Invalid Interpretation Code 0.2 - 1.0 mg/dL AO ADM SS Calcium [Mass/Vol] 8.9 mg/dL Invalid Interpretation Code 8.4 - 10.2 mg/dL AO ADM SS Chloride [Moles/Vol] 99 mmol/L Invalid Interpretation Code 98 - 107 mmol/L AO ADM SS Cholesterol [Mass/Vol] 224 mg/dL Invalid Interpretation Code 0 - 200 mg/dL AO ADM SS Cholesterol in HDL [Mass/Vol] 34 mg/dL Invalid Interpretation Code 40 - 60 mg/dL AO ADM SS CO2 [Moles/Vol] 25 mmol/L Invalid Interpretation Code 22 - 29 mmol/L AO ADM SS Creatinine [Mass/Vol] 0.90 mg/dL Invalid Interpretation Code 0.70 - 1.30 mg/dL AO ADM SS Electrolyte Balance 12.0 mEq/L Invalid Interpretation Code 4.0 - 15.0 mEq/L AO ADM SS Free T4 [Mass/Vol] 0.91 ng/dL Invalid Interpretation Code 0.76 - 1.46 ng/dL AO ADM SS Globulin 3.1 G/dL Invalid Interpretation Code AO ADM SS Glucose [Mass/Vol] 301 mg/dL Invalid Interpretation Code 70 - 105 mg/dL AO ADM SS LDL Cholesterol Not Valid Invalid Interpretation Code 0 - 130 AO ADM SS Comment on above: Result Comment: Trig lyceride >400 invalidates the calculated LDL. Lipase [Catalytic activity/Vol] 143 U/L Invalid Interpretation Code 73 - 393 U/L AO ADM SS Potassium [Moles/Vol] 3.7 mmol/L Invalid Interpretation Code 3.5 - 5.1 mmol/L AO ADM SS Protein [Mass/Vol] 7.1 G/dL Invalid Interpretation Code 6.4 - 8.2 G/dL AO ADM SS Sodium [Moles/Vol] 136 mmol/L Invalid Interpretation Code 136 - 145 mmol/L AO ADM SS Triglyceride [Mass/Vol] 588 mg/dL Invalid Interpretation Code 0 - 150 mg/dL AO ADM SS TSH Qn 2.74 m[IU]/L Invalid Interpretation Code 0.36 - 3.74 mcIU/mL AO ADM SS Urea nitrogen [Mass/Vol] 11 mg/dL Invalid Interpretation Code 7 - 18 mg/dL AO ADM SS Urea nitrogen/Creatinine [Mass ratio] 12 ratio Invalid Interpretation Code 7 - 27 ratio AO ADM SS LABORATORYOrdered By: Neeta Bob on 01-07-2022 Basophil, Absolute 0.00 103/mcL Invalid Interpretation Code 0.00 - 0.19 10^3/mcL AO Auto Heme SS Basophils/100 WBC (Bld) 0.4 % Invalid Interpretation Code 0.0 - 2.5 % AO Auto Heme SS Eosinophil, Absolute 0.30 103/mcL Invalid Interpretation Code 0.00 - 0.40 10^3/mcL AO Auto Heme SS Eosinophils/100 WBC (Bld) 5.8 % Invalid Interpretation Code 0.0 - 7.0 % AO Auto Heme SS Erythrocyte distribution width (RBC) [Ratio] 13.3 % Invalid Interpretation Code 11.5 - 14.5 % AO Auto Heme SS Hematocrit (Bld) [Volume fraction] 43.9 % Invalid Interpretation Code 42.0 - 52.0 % AO Auto Heme SS Hemoglobin (Bld) [Mass/Vol] 15.4 G/dL Invalid Interpretation Code 14.0 - 18.0 G/dL AO Auto Heme SS Lymphocyte, Absolute 1.60 103/mcL Invalid Interpretation Code 0.77 - 3.85 10^3/mcL AO Auto Heme SS Lymphocytes/100 WBC (Bld) 33.0 % Invalid Interpretation Code 10.0 - 50.0 % AO Auto Heme SS MCH (RBC) [Entitic mass] 28.9 pg Invalid Interpretation Code 27.0 - 31.2 pg AO Auto Heme SS MCHC (RBC) [Mass/Vol] 35.1 G/dL Invalid Interpretation Code 31.8 - 35.4 G/dL AO Auto Heme SS MCV (RBC) [Entitic vol] 82.3 fL Invalid Interpretation Code 80.0 - 94.0 fL AO Auto Heme SS Monocyte, Absolute 0.40 103/mcL Invalid Interpretation Code 0.15 - 1.00 10^3/mcL AO Auto Heme SS Monocytes/100 WBC (Bld) 7.8 % Invalid Interpretation Code 1.7 - 13.0 % AO Auto Heme SS Neutrophil, Absolute 2.50 103/mcL Invalid Interpretation Code 2.85 - 6.16 10^3/mcL AO Auto Heme SS Neutrophils/100 WBC (Bld) 53.0 % Invalid Interpretation Code 37.0 - 80.0 % AO Auto Heme SS Platelet mean volume (Bld) [Entitic vol] 7.9 fL Invalid Interpretation Code 7.4 - 10.4 fL AO Auto Heme SS Platelets (Bld) [#/Vol] 248 103/mcL Invalid Interpretation Code 130 - 400 10^3/mcL AO Auto Heme SS RBC (Bld) [#/Vol] 5.33 106/mcL Invalid Interpretation Code 4.04 - 6.13 10^6/mcL AO Auto Heme SS WBC (Bld) [#/Vol] 4.80 103/mcL Invalid Interpretation Code 4.60 - 10.80 10^3/mcL AO Auto Heme SS LABORATORYOrdered By: SYSTEM SYSTEM on 01-07-2022 GFR 115 ml/min/1.73sqm Invalid Interpretation Code AO Chemistry S GFR Non- 95 ml/min/1.73sqm Invalid Interpretation Code AO Chemistry S LABORATORYOrdered By: Antoni Mckeon on 10-13-2021 Albumin BCP dye [Mass/Vol] 3.9 G/dL Invalid Interpretation Code 3.5 - 5.0 G/dL AO ADM SS Albumin/Globulin [Mass ratio] 1.3 {ratio} Invalid Interpretation Code 1.1 - 2.5 ratio AO ADM SS ALP [Catalytic activity/Vol] 88 U/L Invalid Interpretation Code 40 - 135 U/L AO ADM SS ALT With P-5'-P [Catalytic activity/Vol] 68 U/L Invalid Interpretation Code 16 - 63 U/L AO ADM SS Appearance (U) Clear (10/13/21 12:07 PM) Invalid Interpretation Code Clear AO Auto Urine SS AST With P-5'-P [Catalytic activity/Vol] 29 U/L Invalid Interpretation Code 10 - 40 U/L AO ADM SS Bilirubin [Mass/Vol] 0.4 mg/dL Invalid Interpretation Code 0.2 - 1.0 mg/dL AO ADM SS Bilirubin Ql (U) Negative (10/13/21 12:07 PM) Invalid Interpretation Code Negative AO Auto Urine SS Calcium [Mass/Vol] 9.1 mg/dL Invalid Interpretation Code 8.4 - 10.2 mg/dL AO ADM SS Chloride [Moles/Vol] 97 mmol/L Invalid Interpretation Code 98 - 107 mmol/L AO ADM SS CO2 [Moles/Vol] 25 mmol/L Invalid Interpretation Code 22 - 29 mmol/L AO ADM SS Color (U) Yellow (10/13/21 12:07 PM) Invalid Interpretation Code AO Auto Urine SS Creatinine [Mass/Vol] 0.88 mg/dL Invalid Interpretation Code 0.70 - 1.30 mg/dL AO ADM SS Electrolyte Balance 12.0 mEq/L Invalid Interpretation Code AO ADM SS Globulin 3.1 G/dL Invalid Interpretation Code AO ADM SS Glucose [Mass/Vol] 341 mg/dL Invalid Interpretation Code 70 - 105 mg/dL AO ADM SS Glucose Test strip (U) [Mass/Vol] >=1000 mg/dL Invalid Interpretation Code Negativemg/d L AO Auto Urine SS Hemoglobin Auto test strip (U) [Mass/Vol] Negative (10/13/21 12:07 PM) Invalid Interpretation Code Negative AO Auto Urine SS Ketones Ql (U) Negative Invalid Interpretation Code Negativemg/d L AO Auto Urine SS Lipase [Catalytic activity/Vol] 155 U/L Invalid Interpretation Code 73 - 393 U/L AO ADM SS Potassium [Moles/Vol] 4.0 mmol/L Invalid Interpretation Code 3.5 - 5.1 mmol/L AO ADM SS Protein [Mass/Vol] 7.0 G/dL Invalid Interpretation Code 6.4 - 8.2 G/dL AO ADM SS Sodium [Moles/Vol] 134 mmol/L Invalid Interpretation Code 136 - 145 mmol/L AO ADM SS UA Leuk Est Negative (10/13/21 12:07 PM) Invalid Interpretation Code Negative AO Auto Urine SS UA Nitrite Negative (10/13/21 12:07 PM) Invalid Interpretation Code Negative AO Auto Urine SS UA pH 6.5 (10/13/21 12:07 PM) Invalid Interpretation Code 5.0 - 8.0 AO Auto Urine SS UA Protein Negative Invalid Interpretation Code Negativemg/d L AO Auto Urine SS UA Spec Grav 1.015 (10/13/21 12:07 PM) Invalid Interpretation Code 1.015-1.025 AO Auto Urine SS UA Specimen Type Clean Catch (10/13/21 12:07 PM) Invalid Interpretation Code AO Auto Urine SS UA Urobilinogen 0.2 E.U./dL Invalid Interpretation Code 0.2-1.0E.U./ dL AO Auto Urine SS Urea nitrogen [Mass/Vol] 8 mg/dL Invalid Interpretation Code 7 - 18 mg/dL AO ADM SS Urea nitrogen/Creatinine [Mass ratio] 9 ratio Invalid Interpretation Code 7 - 27 ratio AO ADM SS LABORATORYOrdered By: Toshia Singleton on 10-13-2021 Basophil, Absolute 0.00 103/mcL Invalid Interpretation Code 0.00 - 0.19 10^3/mcL AO Auto Heme SS Basophils/100 WBC (Bld) 1.0 % Invalid Interpretation Code 0.0 - 2.5 % AO Auto Heme SS Eosinophil, Absolute 0.30 103/mcL Invalid Interpretation Code 0.00 - 0.40 10^3/mcL AO Auto Heme SS Eosinophils/100 WBC (Bld) 6.2 % Invalid Interpretation Code 0.0 - 7.0 % AO Auto Heme SS Erythrocyte distribution width (RBC) [Ratio] 13.3 % Invalid Interpretation Code 11.5 - 14.5 % AO Auto Heme SS Hematocrit (Bld) [Volume fraction] 43.6 % Invalid Interpretation Code 42.0 - 52.0 % AO Auto Heme SS Hemoglobin (Bld) [Mass/Vol] 15.4 G/dL Invalid Interpretation Code 14.0 - 18.0 G/dL AO Auto Heme SS Lymphocyte, Absolute 1.20 103/mcL Invalid Interpretation Code 0.77 - 3.85 10^3/mcL AO Auto Heme SS Lymphocytes/100 WBC (Bld) 25.3 % Invalid Interpretation Code 10.0 - 50.0 % AO Auto Heme SS MCH (RBC) [Entitic mass] 29.3 pg Invalid Interpretation Code 27.0 - 31.2 pg AO Auto Heme SS MCHC (RBC) [Mass/Vol] 35.3 G/dL Invalid Interpretation Code 31.8 - 35.4 G/dL AO Auto Heme SS MCV (RBC) [Entitic vol] 83.1 fL Invalid Interpretation Code 80.0 - 94.0 fL AO Auto Heme SS Monocyte, Absolute 0.40 103/mcL Invalid Interpretation Code 0.15 - 1.00 10^3/mcL AO Auto Heme SS Monocytes/100 WBC (Bld) 9.2 % Invalid Interpretation Code 1.7 - 13.0 % AO Auto Heme SS Neutrophil, Absolute 2.80 103/mcL Invalid Interpretation Code 2.85 - 6.16 10^3/mcL AO Auto Heme SS Neutrophils/100 WBC (Bld) 58.3 % Invalid Interpretation Code 37.0 - 80.0 % AO Auto Heme SS Platelet mean volume (Bld) [Entitic vol] 7.6 fL Invalid Interpretation Code 7.4 - 10.4 fL AO Auto Heme SS Platelets (Bld) [#/Vol] 234 103/mcL Invalid Interpretation Code 130 - 400 10^3/mcL AO Auto Heme SS RBC (Bld) [#/Vol] 5.24 106/mcL Invalid Interpretation Code 4.04 - 6.13 10^6/mcL AO Auto Heme SS WBC (Bld) [#/Vol] 4.90 103/mcL Invalid Interpretation Code 4.60 - 10.80 10^3/mcL AO Auto Heme SS LABORATORYOrdered By: SYSTEM SYSTEM on 10-13-2021 GFR 119 ml/min/1.73sqm Invalid Interpretation Code AO Chemistry S GFR Non- 98 ml/min/1.73sqm Invalid Interpretation Code AO Chemistry S Glucose,Bedsideon 09-11-2021 Glucose [Mass/Vol] 304 mg/dL High 70-100 [facility] Comment on above: Result Comment: Test performed by glucose meter. Results may be 10%-15% lower than serum/plasma values. (CLIA ID [id number]) Performed By: #### H EMDF, CMP3, LIPA4, TROPN #### [facility] [employer] [facility] [address] [place] [address] Glucose [Mass/Vol] 325 mg/dL High 70-100 [facility] Comment on above: Result Comment: Test performed by glucose meter. Results may be 10%-15% lower than serum/plasma values. (CLIA ID [id number]) Performed By: #### B GLU #### [employer] [address] [place] [address] Glucose [Mass/Vol] 167 mg/dL High 70-100 [facility] Comment on above: Result Comment: Test performed by glucose meter. Results may be 10%-15% lower than serum/plasma values. (CLIA ID [id number]) Performed By: #### B GLU #### [facility] [employer] [address] [place] [address] POCT GlucoseOrdered By: Edwardo in [place] on 09-11-2021 Glucose [Mass/Vol] 304 mg/dL High 70 - 100 mg/dL [facility] Work Phone: 1 Comment on above: Test performed by gl ucose meter. Results may be 10%-15% lower than serum/plasma values. (CLIA ID [id number]) Interpretation and review of laboratory results Abnormal [facility] Work Phone: 1 22 Test Performed by [facility], [address] [address] [facility] Work Phone: 1 [facility] Work Phone: 1() Glucose [Mass/Vol] 325 mg/dL High 70 - 100 mg/dL [facility] Work Phone: 1) Comment on above: Test performed by gl ucose meter. Results may be 10%-15% lower than serum/plasma values. (CLIA ID [id number]) Interpretation and review of laboratory results Abnormal [facility] Work Phone: 1 Test Performed by [facility], [address] [place] [address] [facility] Work Phone: 1 [facility] Work Phone: 1() Glucose [Mass/Vol] 167 mg/dL High 70 - 100 mg/dL [facility] Work Phone: 1 Comment on above: Test performed by gl ucose meter. Results may be 10%-15% lower than serum/plasma values. (CLIA ID [id number]) Interpretation and review of laboratory results Abnormal [facility] Work Phone: 1 Test Performed by [facility] [employer] [facility], [address] [place] [address] [facility] Work Phone: 1 [facility] Work Phone: 1 22 Surgical Pathologyon 09-11- 021 Surgical Pathology [id number] [facility] PATH[facility]ORATORY MEDICINE [address] [place] [address] Fax - FINAL SURGICAL PATHOLOGY REPORT ___ NAME: LEONEL LAKE : 1985 35 [address] Sohail LEON NO.: [id number] LOCATION: [facility] 05 PROCEDURE 09/11/2021 DATE: SURGEON: PHILIP DORAN M.D. RECEIVED 09/11/2021 DATE: ATTENDING: PHILIP DORAN MD REPORT DATE: 09/12/2021 COPIES TO: ___ DIAGNOSIS: GALLBLADDER, CHOLECYSTECTOMY: - CHRONIC CHOLECYSTITIS WITH CHOLELITHIASIS AND CHOLESTEROLOSIS. / Signature> JAMIE DONIS ___ CLINICAL INFORMATION: Biliary colic SPECIMEN: GALLBLADDER ___ GROSS DESCRIPTION: Received in formalin labeled gallbladder is a previously opened gallbladder measuring 9 cm in length and up to 3.5 cm in diameter. The serosal surface is pink-poe to yellow, smooth to rough, with extensive adherent adipose tissue. The neck area is torn and cauterized. No cystic duct can be positively identified. The mucosal surface is dark red and hemorrhagic with adherent blood clot and possible small yellow polypoid structure measuring 0.2 cm in greatest dimension. The wall varies in thickness from 0.2 to 0.6 cm. Box Loader sections from the neck, body and fundus are submitted in one cassette. [id number]/[id number] Disclaimer: The following statement applies to all immunohistochemistry, in situ hybridization, molecular studies, and immunofluorescence testing. The use of one or more reagents in the above tests is regulated as an analyte specific reagent (ASR). These tests were developed and their performance characteristics determined by the clinical laboratories of [facility]. They have not been cleared by the US Food and Drug Administration (FDA). The FDA has determined that such clearance or approval is not necessary. All the above immunostains were performed on paraffin embedded tissue. Appropriate positive and negative controls (where applicable) were run in parallel with the patient's specimen; these controls showed expected staining pattern, with acceptable intensity of staining. Immunohistochemical assays have not been validated on decalcified tissues. Results should be interpreted with caution given the raised possibility of false negativity on decalcified specimens. Case reviewed at [address] [id number]. DEPARTMENT OF PATHOLOGY AND LABORATORY MEDICINE [place], [place] [address] [email or web address] Normal [facility] Basic Metabolic Panelon 10-1 Calcium [Mass/Vol] 9.3 mg/dL Normal 8.4-10.4 [facility] Comment on above: Performed By: #### H EMDF, CMP3, LIPA4, TROPN #### [facility] [address] [place] [address] Glucose [Mass/Vol] 267 mg/dL High 70-100 [facility] Comment on above: Performed By: #### H EMDF, CMP3, LIPA4, TROPN #### [facility] [address] [place] [address] Urea nitrogen [Mass/Vol] 10 mg/dL Normal 7-17 [facility] Comment on above: Performed By: #### H EMDF, CMP3, LIPA4, TROPN #### [facility] [address] [place] [address] Anion gap [Moles/Vol] 7 mmol/L Normal 3-13 [facility] Comment on above: Performed By: #### H EMDF, CMP3, LIPA4, TROPN #### [facility] [address] [place] [address] CO2 [Moles/Vol] 24 mmol/L Normal 22-30 [facility] Comment on above: Performed By: #### H EMDF, CMP3, LIPA4, TROPN #### [facility] [address] [place] [address] Creatinine [Mass/Vol] 0.59 mg/dL Normal 0.52-1.25 [facility] Comment on above: Performed By: #### H EMDF, CMP3, LIPA4, TROPN #### [facility] [address] [place] [address] eGFR OTHER > 90.0 Normal >60 [facility] Comment on above: Result Comment: KDIG O guidelines provide the following GFR categories: Stage GFR(ml/min/1.73 m2) Terms G1 >=90 Normal or high G2 60-89 Mildly decreased* G3a 45-59 Mildly to moderately decreased G3b 30-44 Moderately to severely decreased G4 15-29 Severely decreased G5 <15 Kidney failure *Relative to young adult level. In the absence of evidence of kidney damage, neither GFR category G1 nor G2 fulfill the criteria for CKD. The CKD-EPI equation is validated in individuals 18 years of age and older. Currently the best equation for estimating glomerular filtration rate (GFR) from serum creatinine in children is the Bedside Voss equation. It is less accurate in patients with extremes of muscle mass, restriction of dietary protein, ingestion of creatine, extra-renal metabolism of creatinine, or treatment with medications that affect renal tubular creatinine secretion. Performed By: #### H EMDF, CMP3, LIPA4, TROPN #### [facility] [address] [place] [address] GFR/1.73 sq M.predicted among blacks MDRD (S/P/Bld) [Vol rate/Area] mL/min/{1.73_m2} Normal >60 [facility] Comment on above: Performed By: #### H EMDF, CMP3, LIPA4, TROPN #### [facility] [address] [place] [address] Potassium [Moles/Vol] 3.8 mmol/L Normal 3.5-5.1 [facility] Comment on above: Performed By: #### H EMDF, CMP3, LIPA4, TROPN #### [facility] [address] [place] [address] Sodium [Moles/Vol] 134 mmol/L Low 135-145 [facility] Comment on above: Performed By: #### H EMDF, CMP3, LIPA4, TROPN #### [facility] [address] [place] [address] Chloride [Moles/Vol] 103 mmol/L Normal 98-107 [facility] Comment on above: Performed By: #### H EMDF, CMP3, LIPA4, TROPN #### [facility] [address] [place] [address] Basic Metabolic PanelOrdered By: Rafael Ring on 09-02-2021 Anion gap [Moles/Vol] 7 mmol/L 3 - 13 mmol/L [facility] Work Phone: Calcium [Mass/Vol] 9.3 mg/dL 8.4 - 10. 4 mg/dL [facility] Work Phone: Chloride [Moles/Vol] 103 mmol/L 98 - 10 7 mmol/L [facility] Work Phone: CO2 [Moles/Vol] 24 mmol/L 22 - 30 mmol/L [facility] Work Phone: Creatinine [Mass/Vol] 0.59 mg/dL 0.52 - 1.25 mg/dL [facility] Work Phone: EGFR IF NonAfrican [place] >90.0 >60 mL/min [facility] Work Phone: Comment on above: KDIGO guidelines pro vide the following GFR categories: Stage GFR(ml/min/1.73 m2) Terms G1 >=90 Normal or high G2 60-89 Mildly decreased* G3a 45-59 Mildly to moderately decreased G3b 30-44 Moderately to severely decreased G4 15-29 Severely decreased G5 <15 Kidney failure *Relative to young adult level. In the absence of evidence of kidney damage, neither GFR category G1 nor G2 fulfill the criteria for CKD. The CKD-EPI equation is validated in individuals 18 years of age and older. Currently the best equation for estimating glomerular filtration rate (GFR) from serum creatinine in children is the Bedside Voss equation. It is less accurate in patients with extremes of muscle mass, restriction of dietary protein, ingestion of creatine, extra-renal metabolism of creatinine, or treatment with medications that affect renal tubular creatinine secretion. GFR/1.73 sq M.predicted among blacks MDRD (S/P/Bld) [Vol rate/Area] mL/min/{1.73_m2} >60 mL/min [facility] Work Phone: 1 Glucose [Mass/Vol] 267 mg/dL High 70 - 100 mg/dL [facility] Work Phone: Potassium [Moles/Vol] 3.8 mmol/L 3.5 - 5.1 mmol/L [facility] Work Phone: Sodium [Moles/Vol] 134 mmol/L Low 135 - 145 mmol/L [facility] Work Phone: Urea nitrogen (BldV) [Mass/Vol] 10 mg/dL 7 - 17 mg/dL [facility] Work Phone: Glucose,Bedsideon 09-02-2021 Glucose [Mass/Vol] 276 mg/dL High 70-100 [facility] Comment on above: Result Comment: Test performed by glucose meter. Results may be 10%-15% lower than serum/plasma values. (CLIA ID [id number]) Performed By: #### H EMDF, CMP3, LIPA4, TROPN #### [facility] [address] [place] [address] Hemogram (CBC) w/Auto DiffOr dered By: Rafael Ring on 09-02-2021 Absolute Baso # 0.0 10*3/uL 0.0 - 0.2 10*3/uL [facility] Work Phone: Absolute Neut # 3.4 10*3/uL 1.8 - 7.0 10*3/uL [facility] Work Phone: Basophils/100 WBC (Bld) 0.9 % 0.0 - 2.0 % [facility] Work Phone: 1 Eosinophils (Bld) [#/Vol] 0.3 10*3/uL 0.0 - 0.5 10*3/uL [facility] Work Phone: 1 22 Eosinophils/100 WBC (Bld) 5.3 % 1.0 - 6.0 % [facility] Work Phone: 1 Granulocytes/100 WBC (Bld) 62.0 % 40.0 - 80.0 % [facility] Work Phone: 1 Hematocrit (Bld) [Volume fraction] 41.6 % 40.0 - 52.0 % [facility] Work Phone: Hemoglobin.gastrointe stinal spec 1 Ql (Stl) 14.6 g/dL 13.0 - 18.0 g/dL [facility] Work Phone: 1 Interpretation and review of laboratory results Abnormal [facility] Work Phone: Lymphocytes (Bld) [#/Vol] 1.4 10*3/uL 1.0 - 4.3 10*3/uL [facility] Work Phone: 1 22 Lymphocytes/100 WBC (Bld) 24.7 % 20.0 - 40.0 % [facility] Work Phone: MCH (RBC) [Entitic mass] 30.0 pg 26.0 - 34.0 pg [facility] Work Phone: MCHC (RBC) [Mass/Vol] 35.2 % 32.0 - 36.0 % [facility] Work Phone: MCV (RBC) [Entitic vol] 85.2 fL 80.0 - 98.0 fL [facility] Work Phone: 1 Monocytes (Bld) [#/Vol] 0.4 10*3/uL 0.0 - 0.8 10*3/uL [facility] Work Phone: 1 22 Monocytes/100 WBC (Bld) 7.1 % 2.0 - 10.0 % [facility] Work Phone: 1 Platelet distribution width (Bld) [Ratio] 13.1 % 11.5 - 14.5 % [facility] Work Phone: [phone] Platelet mean volume (Bld) [Entitic vol] 7.1 fL Low 7.4 - 10.4 fL [facility] Work Phone: [phone] Platelets (Bld) [#/Vol] 238 10*3/uL 140 - 440 10*3/uL [facility] Work Phone: [phone] RBC (Bld) [#/Vol] 4.88 10*6/uL 4.40 - 5.9 0 10*6/uL [facility] Work Phone: 1 WBC (Bld) [#/Vol] 5.5 10*3/uL 3.6 - 10.7 10*3/uL [facility] Work Phone: [phone] Test Performed by [facility], [address] Work Phone: [phone] [facility] Work Phone: [phone] Hemogram w/ Autodiffon 09-02 Abs Baso Cnt 0.0 10*3/uL Normal 0.0-0.2 [facility] Comment on above: Performed By: #### H EMDF, CMP3, LIPA4, TROPN #### [facility] [address] [place] [address] Abs Neutrophile Cnt 3.4 10*3/uL Normal 1.8-7.0 [facility] Comment on above: Performed By: #### H EMDF, CMP3, LIPA4, TROPN #### [facility] [address] [place] [address] Basophils/100 WBC (Bld) 0.9 % Normal 0.0-2.0 [facility] Comment on above: Performed By: #### H EMDF, CMP3, LIPA4, TROPN #### [facility] [address] [place] [address] Eosinophils (Bld) [#/Vol] 0.3 10*3/uL Normal 0.0-0.5 [facility] Comment on above: Performed By: #### H EMDF, CMP3, LIPA4, TROPN #### [facility] [address] [place] [address] Eosinophils/100 WBC (Bld) 5.3 % Normal 1.0-6.0 [facility] Comment on above: Performed By: #### H EMDF, CMP3, LIPA4, TROPN #### [facility] [address] [place] [address] Erythrocyte distribution width (RBC) [Ratio] 13.1 % Normal 11.5-14.5 [facility] Comment on above: Performed By: #### H EMDF, CMP3, LIPA4, TROPN #### [facility] [address] [place] [address] Granulocytes/100 WBC (Bld) 62.0 % Normal 40.0-80.0 [facility] Comment on above: Performed By: #### H EMDF, CMP3, LIPA4, TROPN #### [address] [place] [address] Hematocrit (Bld) [Volume fraction] 41.6 % Normal 40.0-52.0 [facility] Comment on above: Performed By: #### H EMDF, CMP3, LIPA4, TROPN #### [facility] [address] [place] [address] Hemoglobin (Bld) [Mass/Vol] 14.6 g/dL Normal 13.0-18.0 [facility] Comment on above: Performed By: #### H EMDF, CMP3, LIPA4, TROPN #### [facility] [address] [place] [address] Lymphocytes (Bld) [#/Vol] 1.4 10*3/uL Normal 1.0-4.3 [facility] Comment on above: Performed By: #### H EMDF, CMP3, LIPA4, TROPN #### [facility] [address] [place] [address] Lymphocytes/100 WBC (Bld) 24.7 % Normal 20.0-40.0 [facility] Comment on above: Performed By: #### H EMDF, CMP3, LIPA4, TROPN #### [facility] [address] [place] [address] MCH (RBC) [Entitic mass] 30.0 pg Normal 26.0-34.0 [facility] Comment on above: Performed By: #### H EMDF, CMP3, LIPA4, TROPN #### [facility] [address] [place] [address] MCHC 35.2 % Normal 32.0-36.0 [facility] Comment on above: Performed By: #### H EMDF, CMP3, LIPA4, TROPN #### [facility] [address] [place] [address] MCV (RBC) [Entitic vol] 85.2 fL Normal 80.0-98.0 [facility] Comment on above: Performed By: #### H EMDF, CMP3, LIPA4, TROPN #### [facility] [address] [place] [address] Monocytes (Bld) [#/Vol] 0.4 10*3/uL Normal 0.0-0.8 [facility] Comment on above: Performed By: #### H EMDF, CMP3, LIPA4, TROPN #### [facility] [address] [place] [address] Monocytes/100 WBC (Bld) 7.1 % Normal 2.0-10.0 [facility] Comment on above: Performed By: #### H EMDF, CMP3, LIPA4, TROPN #### [facility] [address] [place] [address] Platelet mean volume (Bld) [Entitic vol] 7.1 fL Low 7.4-10.4 [facility] Comment on above: Performed By: #### H EMDF, CMP3, LIPA4, TROPN #### [facility] [address] [place] [address] Platelets (Bld) [#/Vol] 238 10*3/uL Normal 140-440 [facility] Comment on above: Performed By: #### H EMDF, CMP3, LIPA4, TROPN #### [facility] [address] [place] [address] RBC (Bld) [#/Vol] 4.88 10*6/uL Normal 4.40-5.90 [facility] Comment on above: Performed By: #### H EMDF, CMP3, LIPA4, TROPN #### [facility] [address] [place] [address] WBC (Bld) [#/Vol] 5.5 10*3/uL Normal 3.6-10.7 [facility] Comment on above: Performed By: #### H EMDF, CMP3, LIPA4, TROPN #### [facility] [address] [place] [address] Hepatic Functionon 1 ALP [Catalytic activity/Vol] 75 U/L Normal 38-126 [facility] Comment on above: Performed By: #### H EMDF, CMP3, LIPA4, TROPN #### [facility] [address] [place] [address] ALT [Catalytic activity/Vol] 66 U/L High 0-49 [facility] Comment on above: Result Comment: The ALT test is performed by an updated assay method. Please note that the reference intervals have been changed and are now sex specific. Performed By: #### H EMDF, CMP3, LIPA4, TROPN #### [facility] [address] [place] [address] AST [Catalytic activity/Vol] 48 U/L High 15-46 [facility] Comment on above: Performed By: #### H EMDF, CMP3, LIPA4, TROPN #### [facility] [address] [place] [address] Bilirubin [Mass/Vol] 0.5 mg/dL Normal 0.2-1.3 [facility] Comment on above: Performed By: #### H EMDF, CMP3, LIPA4, TROPN #### [facility] [address] [place] [address] Protein [Mass/Vol] 7.1 g/dL Normal 6.3-8.2 [facility] Comment on above: Performed By: #### H EMDF, CMP3, LIPA4, TROPN #### [facility] [address] [place] [address] Bilirubin.indirect [Mass/Vol] 0.0 mg/dL Normal 0.0-0.3 [facility] Comment on above: Performed By: #### H EMDF, CMP3, LIPA4, TROPN #### [facility] [address] [place] [address] Albumin [Mass/Vol] 4.2 g/dL Normal 3.5-5.0 [facility] Comment on above: Performed By: #### H EMDF, CMP3, LIPA4, TROPN #### [facility] [address] [place] [address] Hepatic Function PanelOrdere d By: Rafael Ring on 09-02-2021 Albumin [Mass/Vol] 4.2 g/dL 3.5 - 5.0 g/dL [facility] Work Phone: [phone] ALP (Bld) [Catalytic activity/Vol] 75 U/L 38 - 126 U/L [facility] Work Phone: [phone] ALT [Catalytic activity/Vol] 66 U/L High 0 - 49 U/L [facility] Work Phone: [phone] Comment on above: The ALT test is perf ormed by an updated assay method. Please note that the reference intervals have been changed and are now sex specific. AST [Catalytic activity/Vol] 48 U/L High 15 - 46 U/L [facility] Work Phone: [phone] Bilirubin [Mass/Vol] 0.5 mg/dL 0.2 - 1 .3 mg/dL [facility] Work Phone: Bilirubin.indirect [Mass/Vol] 0.0 mg/dL 0.0 - 0.3 mg/dL [facility] Work Phone: Free PSA/Total PSA [Mass fraction] 7.1 g/dL 6.3 - 8.2 g/dL [facility] Work Phone: Lipaseon 09-02-2021 Lipase [Catalytic activity/Vol] 88 U/L Normal 23-300 [facility] Comment on above: Performed By: #### H EMDF, CMP3, LIPA4, TROPN #### [facility] [employer] [facility] [address] [place] [address] LipaseOrdered By: Rafael roberts on 09-02-2021 Lipase [Catalytic activity/Vol] 88 U/L 23 - 300 U/L [facility] Work Phone: 1 No Panel InformationOrdered By: Rafael Ring on 09-02-2021 Interpretation and review of laboratory results Abnormal [facility] Work Phone: 1 Test Performed by [facility], [address] , [place] [address] [facility] Work Phone: 1 [facility] Work Phone: 1 POCT GLUCOSEOrdered By: Michelle Ring on 09-02-2021 Glucose [Mass/Vol] 276 mg/dL [facility] Work Phone: 1 Interpretation and review of laboratory results Normal [facility] Work Phone: 1 QC OK? yes [facility] Work Phone: 1 [facility] Work Phone: 1 POCT GlucoseOrdered By: Michelle Ring on 09-02-2021 Glucose [Mass/Vol] 276 mg/dL High 70 - 100 mg/dL [facility] Work Phone: 1 Comment on above: Test performed by gl ucose meter. Results may be 10%-15% lower than serum/plasma values. (CLIA ID [id number]) Interpretation and review of laboratory results Abnormal [facility] Work Phone: 1 Test Performed by [facility], [address] , [place] [address] [facility] Work Phone: 1 [facility] Work Phone: 1 POCT VenousOrdered By: Steven Ring on 09-02-2021 Base Excess, Earl -0.4 mmol/L -3.0 - 3.0 mmol/L [facility] Work Phone: 1 FIO2 Venous No data [facility] Work Phone: 1 HCO3 (Bld) [Moles/Vol] 25.4 mmol/L 23.0 - 27.0 mmol/L [facility] Work Phone: [phone] Interpretation and review of laboratory results Abnormal [facility] Work Phone: [phone] Oxygen saturation in Blood 87.2 % High 60.0 - 80.0 % [facility] Work Phone: [phone] pCO2, Earl 44.8 mm[Hg] 40.0 - 55.0 mm[Hg] [facility] Work Phone: [phone] pH, Earl 7.362 [facility] Work Phone: [phone] pO2, Earl 55.7 mm[Hg] High 30.0 - 50.0 mm[Hg] [facility] Work Phone: [phone] TC02 (Calc), Earl 26.8 mmol/L 24.0 - 28.0 mmol/L [facility] Work Phone: Comment on above: Performed by CLIA ID : [id number] [place], [place] Test Performed by [facility], [address] [place], [place] [address] Work Phone: [phone] [facility] Work Phone: Venous Blood Gas Respiratory on 09-02-2021 FIO2 No data Normal [facility] Comment on above: Performed By: #### H EMDF, CMP3, LIPA4, TROPN #### [facility] [address] [place] [address] Base Excess -0.4 mmol/L Normal -3.0-3.0 [facility] Comment on above: Performed By: #### H EMDF, CMP3, LIPA4, TROPN #### [facility] [address] [place] [address] CO2 [Moles/Vol] 26.8 mmol/L Normal 24.0-28.0 [facility] Comment on above: Result Comment: Perf ormed by CLIA ID: [id number] [place], [place] Performed By: #### H EMDF, CMP3, LIPA4, TROPN #### [facility] [address] [place] [address] HCO3 (Bld) [Moles/Vol] 25.4 mmol/L Normal 23.0-27.0 [facility] Comment on above: Performed By: #### H EMDF, CMP3, LIPA4, TROPN #### [facility] [address] [place] [address] Oxygen (Bld) [Partial pressure] 55.7 mm[Hg] High 30.0-50.0 [facility] Comment on above: Performed By: #### H EMDF, CMP3, LIPA4, TROPN #### [facility] [address] [place] [address] Oxygen saturation in Blood 87.2 % High 60.0-80.0 [facility] Comment on above: Performed By: #### H EMDF, CMP3, LIPA4, TROPN #### [facility] [address] [place] [address] pCO2 44.8 mm[Hg] Normal 40.0-55.0 [facility] Comment on above: Performed By: #### H EMDF, CMP3, LIPA4, TROPN #### [facility] [address] [place] [address] pH 7.362 Normal 7.330-7.430 [facility] Comment on above: Performed By: #### H EMDF, CMP3, LIPA4, TROPN #### [facility] [address] [place] [address] Comp Metabolic Panelon 08-29 ALP [Catalytic activity/Vol] 82 U/L Normal 38-126 [facility] Comment on above: Performed By: #### H EMDF, LIPA4, CMP3 #### [facility] [address] [place] [address] ALT [Catalytic activity/Vol] 69 U/L High 0-49 [facility] Comment on above: Result Comment: The ALT test is performed by an updated assay method. Please note that the reference intervals have been changed and are now sex specific. Performed By: #### H EMDF, LIPA4, CMP3 #### [facility] [address] [place] [address] Anion gap [Moles/Vol] 10 mmol/L Normal 3-13 [facility] Comment on above: Performed By: #### H EMDF, LIPA4, CMP3 #### [facility] [address] [place] [address] AST [Catalytic activity/Vol] 63 U/L High 15-46 [facility] Comment on above: Performed By: #### H EMDF, LIPA4, CMP3 #### [facility] [address] [place] [address] Bilirubin [Mass/Vol] 0.5 mg/dL Normal 0.2-1.3 [facility] Comment on above: Performed By: #### H EMDF, LIPA4, CMP3 #### [facility] [address] [place] [address] Calcium [Mass/Vol] 9.5 mg/dL Normal 8.4-10.4 [facility] Comment on above: Performed By: #### H EMDF, LIPA4, CMP3 #### [facility] [address] [place] [address] CO2 [Moles/Vol] 21 mmol/L Low 22-30 [facility] Comment on above: Performed By: #### H EMDF, LIPA4, CMP3 #### [facility] [address] [place] [address] Glucose [Mass/Vol] 340 mg/dL High 70-100 [facility] Comment on above: Performed By: #### H EMDF, LIPA4, CMP3 #### [facility] [address] [place] [address] Protein [Mass/Vol] 7.5 g/dL Normal 6.3-8.2 [facility] Comment on above: Performed By: #### H EMDF, LIPA4, CMP3 #### [facility] [address] [place] [address] Urea nitrogen [Mass/Vol] 12 mg/dL Normal 7-17 [facility] Comment on above: Performed By: #### H EMDF, LIPA4, CMP3 #### [facility] [address] [place] [address] Creatinine [Mass/Vol] 0.70 mg/dL Normal 0.52-1.25 [facility] Comment on above: Performed By: #### H TARUN LOWE, CMP3 #### [facility] [address] [place] [address] eGFR OTHER > 90.0 Normal >60 [facility] Comment on above: Result Comment: KDIG O guidelines provide the following GFR categories: Stage GFR(ml/min/1.73 m2) Terms G1 >=90 Normal or high G2 60-89 Mildly decreased* G3a 45-59 Mildly to moderately decreased G3b 30-44 Moderately to severely decreased G4 15-29 Severely decreased G5 <15 Kidney failure *Relative to young adult level. In the absence of evidence of kidney damage, neither GFR category G1 nor G2 fulfill the criteria for CKD. The CKD-EPI equation is validated in individuals 18 years of age and older. Currently the best equation for estimating glomerular filtration rate (GFR) from serum creatinine in children is the Bedside Voss equation. It is less accurate in patients with extremes of muscle mass, restriction of dietary protein, ingestion of creatine, extra-renal metabolism of creatinine, or treatment with medications that affect renal tubular creatinine secretion. Performed By: #### H TARUN LOWE, CMP3 #### [facility] [address] [place] [address] GFR/1.73 sq M.predicted among blacks MDRD (S/P/Bld) [Vol rate/Area] mL/min/{1.73_m2} Normal >60 [facility] Comment on above: Performed By: #### H TARUN LOWE, CMP3 #### [facility] [address] [place] [address] Albumin [Mass/Vol] 4.4 g/dL Normal 3.5-5.0 [facility] Comment on above: Performed By: #### H TARUN LOWE, CMP3 #### [facility] [address] [place] [address] Potassium [Moles/Vol] 3.9 mmol/L Normal 3.5-5.1 [facility] Comment on above: Performed By: #### H DEVAN LOWEA4, CMP3 #### [facility] [address] [place] [address] Sodium [Moles/Vol] 133 mmol/L Low 135-145 [facility] Comment on above: Performed By: #### H EMDF, LIPA4, CMP3 #### [facility] [address] [place] [address] Chloride [Moles/Vol] 101 mmol/L Normal 98-107 [facility] Comment on above: Performed By: #### H EMDF, LIPA4, CMP3 #### [facility] [address] [place] [address] Hemogram w/ Autodiffon 08-29 Abs Baso Cnt 0.1 10*3/uL Normal 0.0-0.2 [facility] Comment on above: Performed By: #### H EMDF, LIPA4, CMP3 #### [facility] [address] [place] [address] Abs Neutrophile Cnt 3.3 10*3/uL Normal 1.8-7.0 [facility] Comment on above: Performed By: #### H EMDF, LIPA4, CMP3 #### [facility] [address] [place] [address] Basophils/100 WBC (Bld) 0.9 % Normal 0.0-2.0 [facility] Comment on above: Performed By: #### H EMDF, LIPA4, CMP3 #### [facility] [address] [place] [address] Eosinophils (Bld) [#/Vol] 0.2 10*3/uL Normal 0.0-0.5 [facility] Comment on above: Performed By: #### H EMDF, LIPA4, CMP3 #### [facility] [address] [place] [address] Eosinophils/100 WBC (Bld) 4.0 % Normal 1.0-6.0 [facility] Comment on above: Performed By: #### H EMDF, LIPA4, CMP3 #### [facility] [address] [place] [address] Erythrocyte distribution width (RBC) [Ratio] 12.9 % Normal 11.5-14.5 [facility] Comment on above: Performed By: #### H EMDF, LIPA4, CMP3 #### [facility] [address] [place] [address] Granulocytes/100 WBC (Bld) 59.9 % Normal 40.0-80.0 [facility] Comment on above: Performed By: #### H EMDF, LIPA4, CMP3 #### [facility] [address] [place] [address] Hematocrit (Bld) [Volume fraction] 41.6 % Normal 40.0-52.0 [facility] Comment on above: Performed By: #### H EMDF, LIPA4, CMP3 #### [facility] [address] [place] [address] Hemoglobin (Bld) [Mass/Vol] 15.2 g/dL Normal 13.0-18.0 [facility] Comment on above: Performed By: #### H EMDF, LIPA4, CMP3 #### [address] [place] [address] Lymphocytes (Bld) [#/Vol] 1.5 10*3/uL Normal 1.0-4.3 [facility] Comment on above: Performed By: #### H EMDF, LIPA4, CMP3 #### [address] [place] [address] Lymphocytes/100 WBC (Bld) 27.3 % Normal 20.0-40.0 [facility] Comment on above: Performed By: #### H EMDF, LIPA4, CMP3 #### [facility] [address] [place] [address] MCH (RBC) [Entitic mass] 30.6 pg Normal 26.0-34.0 [facility] Comment on above: Performed By: #### H EMDF, LIPA4, CMP3 #### [facility] [address] [place] [address] MCHC 36.5 % High 32.0-36.0 [facility] Comment on above: Performed By: #### H EMDF, LIPA4, CMP3 #### [facility] [address] [place] [address] MCV (RBC) [Entitic vol] 83.7 fL Normal 80.0-98.0 [facility] Comment on above: Performed By: #### H EMDF, LIPA4, CMP3 #### [facility] [address] [place] [address] Monocytes (Bld) [#/Vol] 0.4 10*3/uL Normal 0.0-0.8 [facility] Comment on above: Performed By: #### H EMDF, LIPA4, CMP3 #### [facility] [address] [place] [address] Monocytes/100 WBC (Bld) 7.9 % Normal 2.0-10.0 [facility] Comment on above: Performed By: #### H EMDF, LIPA4, CMP3 #### [facility] [address] [place] [address] Platelet mean volume (Bld) [Entitic vol] 7.5 fL Normal 7.4-10.4 [facility] Comment on above: Performed By: #### H EMDF, LIPA4, CMP3 #### [facility] [address] [place] [address] Platelets (Bld) [#/Vol] 259 10*3/uL Normal 140-440 [facility] Comment on above: Performed By: #### H EMDF, LIPA4, CMP3 #### [facility] [address] [place] [address] RBC (Bld) [#/Vol] 4.97 10*6/uL Normal 4.40-5.90 [facility] Comment on above: Performed By: #### H EMDF, LIPA4, CMP3 #### [facility] [address] [place] [address] WBC (Bld) [#/Vol] 5.6 10*3/uL Normal 3.6-10.7 [facility] Comment on above: Performed By: #### H EMDF, LIPA4, CMP3 #### [facility] [address] [place] [address] Lipaseon 08-29-2021 Lipase [Catalytic activity/Vol] 111 U/L Normal 23-300 [facility] Comment on above: Performed By: #### H EMDF, CMP3, LIPA4, TROPN #### [facility] [address] [place] [address] MRI CERVICAL SPINE WO CONTRA STOrdered By: Long Gonzalez on 08-26-2021 Patient Name: [facility] ACCESSION EXAM DATE/TIME PROCEDURE ORDERING PROVIDER [id number] 08/26/2021 09:12 EDT MRI Spine Cervical w/o DO GONZALEZ EUGENE F. Contrast CPT code 62592 Reason For Exam (MRI Spine Cervical w/o Contrast) Neck pain; Neck pain, no complicating feature; Chronic neck pain duration >= 3 months; Worsening or not improving; Adequate conservative therapy; No known/ automatically detected potential contraindications to MRI Report Examination: MRI Spine Cervical w/o Contrast Clinical: Neck pain; Neck pain, no complicating feature; Chronic neck pain duration >= 3 months; Worsening or not improving; Adequate conservative therapy; No known/automatically detected potential contraindications to MRI Comparison: None Findings: Sagittal T1 and T2 along with axial T2 images obtained through the cervical spine. Examination is incomplete, terminated by the patient secondary to claustrophobia. There is also significant motion artifact along the sagittal T2 images. Examination is felt to be diagnostic. Minimal cervical kyphosis. No evidence of spondylolisthesis. No abnormal signal intensity within the spinal cord. Small broad-based posterior annular disc bulge C4-C5 through C6-C7. This contacts and mildly flattening the ventral cord C5-C6 and C6-C7 on the left. There is slightly more focal 3 mm left lateral recess disc protrusion C6-C7. Mild neuroforaminal narrowing. There is moderate left neuroforaminal narrowing C6-C7. Impression: 1. Mildly limited, incomplete examination. 2. Lower cervical broad-based disc bulges. Slightly more focal small left lateral recess 0.3 cm disc herniation C6-C7. Mild ventral cord compression C5-C6 centrally and C6-C7 on the left. Moderate left neuroforaminal narrowing C6-C7. Other mild foraminal stenosis. [facility] Report Report Dictated on --- Final --- Dictating Physician: MD BALLARD ANTHONY J Signed Date and Time: 08/26/2021 1:00 pm Signed by: MD BALLARD ANTHONY J Transcribed Date and Time: 08/26/2021 1:01 [facility] Work Phone: [facility] Incoming Radiology Results From [facility] - 08/26/2021 1:01 PM EDT Patient Name: [facility] ACCESSION EXAM DATE/TIME PROCEDURE ORDERING PROVIDER [id number] 08/26/2021 09:12 EDT MRI Spine Cervical w/o DO GONZALEZ EUGENE F. Contrast CPT code 55406 Reason For Exam (MRI Spine Cervical w/o Contrast) Neck pain; Neck pain, no complicating feature; Chronic neck pain duration >= 3 months; Worsening or not improving; Adequate conservative therapy; No known/ automatically detected potential contraindications to MRI Report Examination: MRI Spine Cervical w/o Contrast Clinical: Neck pain; Neck pain, no complicating feature; Chronic neck pain duration >= 3 months; Worsening or not improving; Adequate conservative therapy; No known/automatically detected potential contraindications to MRI Comparison: None Findings: Sagittal T1 and T2 along with axial T2 images obtained through the cervical spine. Examination is incomplete, terminated by the patient secondary to claustrophobia. There is also significant motion artifact along the sagittal T2 images. Examination is felt to be diagnostic. Minimal cervical kyphosis. No evidence of spondylolisthesis. No abnormal signal intensity within the spinal cord. Small broad-based posterior annular disc bulge C4-C5 through C6-C7. This contacts and mildly flattening the ventral cord C5-C6 and C6-C7 on the left. There is slightly more focal 3 mm left lateral recess disc protrusion C6-C7. Mild neuroforaminal narrowing. There is moderate left neuroforaminal narrowing C6-C7. Impression: 1. Mildly limited, incomplete examination. 2. Lower cervical broad-based disc bulges. Slightly more focal small left lateral recess 0.3 cm disc herniation C6-C7. Mild ventral cord compression C5-C6 centrally and C6-C7 on the left. Moderate left neuroforaminal narrowing C6-C7. Other mild foraminal stenosis. [facility] Report Report Dictated on --- Final --- Dictating Physician: MD BALLARD ANTHONY J Signed Date and Time: 08/26/2021 1:00 pm Signed by: MD BALLARD ANTHONY J Transcribed Date and Time: 08/26/2021 1:01 [facility] Work Phone: [facility] Work Phone: MRI Spine Cervical w/o Contr sanjuana 08-26-2021 MRI Spine Cervical w/o Contrast Patient Name: [facility] ACCESSION EXAM DATE/TIME PROCEDURE ORDERING PROVIDER [id number] 08/26/2021 09:12 EDT MRI Spine Cervical w/o DO GONZALEZ EUGENE F. Contrast CPT code 32772 Reason For Exam (MRI Spine Cervical w/o Contrast) Neck pain; Neck pain, no complicating feature; Chronic neck pain duration >= 3 months; Worsening or not improving; Adequate conservative therapy; No known/ automatically detected potential contraindications to MRI Report Examination: MRI Spine Cervical w/o Contrast Clinical: Neck pain; Neck pain, no complicating feature; Chronic neck pain duration >= 3 months; Worsening or not improving; Adequate conservative therapy; No known/automatically detected potential contraindications to MRI Comparison: None Findings: Sagittal T1 and T2 along with axial T2 images obtained through the cervical spine. Examination is incomplete, terminated by the patient secondary to claustrophobia. There is also significant motion artifact along the sagittal T2 images. Examination is felt to be diagnostic. Minimal cervical kyphosis. No evidence of spondylolisthesis. No abnormal signal intensity within the spinal cord. Small broad-based posterior annular disc bulge C4-C5 through C6-C7. This contacts and mildly flattening the ventral cord C5-C6 and C6-C7 on the left. There is slightly more focal 3 mm left lateral recess disc protrusion C6-C7. Mild neuroforaminal narrowing. There is moderate left neuroforaminal narrowing C6-C7. Impression: 1. Mildly limited, incomplete examination. 2. Lower cervical broad-based disc bulges. Slightly more focal small left lateral recess 0.3 cm disc herniation C6-C7. Mild ventral cord compression C5-C6 centrally and C6-C7 on the left. Moderate left neuroforaminal narrowing C6-C7. Other mild foraminal stenosis. [facility] Report Report Dictated on Final Dictating Physician: MD BALLARD ANTHONY J Signed Date and Time: 08/26/2021 1:00 pm Signed by: MD BALLARD ANTHONY J Transcribed Date and Time: 08/26/2021 1:01 Normal [facility] US ABDOMEN LIMITED Specify o rgan? LIVEROrdered By: Long Gonzalez on 08-26-2021 Patient Name: [facility] Ultrasound ACCESSION EXAM DATE/TIME PROCEDURE ORDERING PROVIDER [id number] 08/26/2021 09:05 EDT US Abdomen Limited DO GONZALEZ EUGENE F. CPT code 31433 Reason For Exam (US Abdomen Limited) elev LFTs Report CLINICAL INFORMATION: Right upper quadrant pain. Elevated liver enzymes. Ultrasound of the right upper quadrant is provided. There are no comparison studies. FINDINGS: The liver is somewhat difficult to penetrate due to fatty infiltration. The liver is enlarged spanning 24 cm. No focal hepatic lesions are seen. There is no evidence of intra or extrahepatic biliary dilatation. The common bile duct is normal at 4 mm. Shadowing stones are present in the gallbladder lumen. The gallbladder wall is normal. There is no pericholecystic fluid. The patient is nontender during evaluation of the gallbladder (negative Velásquez's sign). The right kidney measures 14.5 x 7.0 x 5.4 cm. There is no evidence of hydronephrosis or hydroureter. No free fluid is seen within the abdomen. A limited evaluation of the pancreas is grossly unremarkable. IMPRESSION: 1. Fatty and enlarged liver. 2. No biliary dilatation. 3. Cholelithiasis. The gallbladder wall remains normal. 4. The patient is nontender during evaluation of the gallbladder (negative Velásquez's sign). Report Dictated on --- Final --- Dictating Physician: MD MCDANIEL JEFFREY Signed Date and Time: 08/26/2021 10:33 am Signed by: MD MCDANIEL JEFFREY Transcribed Date and Time: 08/26/2021 10:34 [facility] Work Phone: [facility] Incoming Radiology Results From [facility] - 08/26/2021 10:34 AM EDT [facility]: [id number] ACCESSION EXAM DATE/TIME PROCEDURE ORDERING PROVIDER [id number] 08/26/2021 09:05 EDT US Abdomen Limited DO GONZALEZ EUGENE F. CPT code 38945 Reason For Exam (US Abdomen Limited) elev LFTs Report CLINICAL INFORMATION: Right upper quadrant pain. Elevated liver enzymes. Ultrasound of the right upper quadrant is provided. There are no comparison studies. FINDINGS: The liver is somewhat difficult to penetrate due to fatty infiltration. The liver is enlarged spanning 24 cm. No focal hepatic lesions are seen. There is no evidence of intra or extrahepatic biliary dilatation. The common bile duct is normal at 4 mm. Shadowing stones are present in the gallbladder lumen. The gallbladder wall is normal. There is no pericholecystic fluid. The patient is nontender during evaluation of the gallbladder (negative Velásquez's sign). The right kidney measures 14.5 x 7.0 x 5.4 cm. There is no evidence of hydronephrosis or hydroureter. No free fluid is seen within the abdomen. A limited evaluation of the pancreas is grossly unremarkable. IMPRESSION: 1. Fatty and enlarged liver. 2. No biliary dilatation. 3. Cholelithiasis. The gallbladder wall remains normal. 4. The patient is nontender during evaluation of the gallbladder (negative Velásquez's sign). Report Dictated on --- Final --- Dictating Physician: MD MCDANIEL JEFFREY Signed Date and Time: 08/26/2021 10:33 am Signed by: MD MCDANIEL JEFFREY Transcribed Date and Time: 08/26/2021 10:34 [facility] Work Phone: [facility] Work Phone: US Abdomen Limitedon US Abdomen Limited Patient Name: [facility] Ultrasound ACCESSION EXAM DATE/TIME PROCEDURE ORDERING PROVIDER [id number] 08/26/2021 09:05 EDT US Abdomen Limited DO GONZALEZ EUGENE F. CPT code 15100 Reason For Exam (US Abdomen Limited) elev LFTs Report CLINICAL INFORMATION: Right upper quadrant pain. Elevated liver enzymes. Ultrasound of the right upper quadrant is provided. There are no comparison studies. FINDINGS: The liver is somewhat difficult to penetrate due to fatty infiltration. The liver is enlarged spanning 24 cm. No focal hepatic lesions are seen. There is no evidence of intra or extrahepatic biliary dilatation. The common bile duct is normal at 4 mm. Shadowing stones are present in the gallbladder lumen. The gallbladder wall is normal. There is no pericholecystic fluid. The patient is nontender during evaluation of the gallbladder (negative Velásquez's sign). The right kidney measures 14.5 x 7.0 x 5.4 cm. There is no evidence of hydronephrosis or hydroureter. No free fluid is seen within the abdomen. A limited evaluation of the pancreas is grossly unremarkable. IMPRESSION: 1. Fatty and enlarged liver. 2. No biliary dilatation. 3. Cholelithiasis. The gallbladder wall remains normal. 4. The patient is nontender during evaluation of the gallbladder (negative Velásquez's sign). Report Dictated on Final Dictating Physician: MD MCDANIEL JEFFREY Signed Date and Time: 08/26/2021 10:33 am Signed by: MD MCDANIEL JEFFREY Transcribed Date and Time: 08/26/2021 10:34 Normal [facility] CR Knee Complete 4+ Views [place] 07-11-2021 CR Knee Complete 4+ Views Left Patient Name: [facility] Diagnostic Radiology ACCESSION EXAM DATE/TIME PROCEDURE ORDERING PROVIDER [id number] 07/11/2021 11:21 EDT CR Knee Complete 4+ [id number] -MAGUEREMIGIO STEWART Views Left CPT code 55570 Reason For Exam (CR Knee Complete 4+ Views Left) pain Report CLINICAL INDICATION: Left knee pain. AP, lateral, tunnel, and patellar plain film views of the left knee were obtained. COMPARISON: None FINDINGS: No acute fracture or dislocation. No bony destruction. Joint spaces are maintained. No chondrocalcinosis. IMPRESSION: No acute bony abnormality. Report Dictated on Final Dictating Physician: MD QUEZADA LAURA Signed Date and Time: 07/11/2021 12:10 pm Signed by: MD QUEZADA LAURA Transcribed Date and Time: 07/11/2021 12:11 Normal [facility] MRI UPPER EXTREMITY LEFT W J T WO CONTRASTOrdered By: Stewart Nur on 07-11-2021 Patient Name: [facility] ACCESSION EXAM DATE/TIME PROCEDURE ORDERING PROVIDER [id number] 07/11/2021 11:53 EDT MRI Up Ext Joint w/o [id number] -STEWART NUR Contrast Left CPT code 74763 Reason For Exam (MRI Up Ext Joint w/o Contrast Left) pain Report Examination: MRI left shoulder Clinical Indication: pain Comparison: 03/08/2021 Findings: Multiplanar multisequence high field strength MRI images were obtained through the left shoulder without intravenous gadolinium. No fracture or subluxation. Minimal amount of osseous edema along the distal clavicle could be degenerative or could represent subacute contusion. Acromioclavicular joint within normal limits. AC ligament grossly intact. Slight lateral downsloping of the acromion. No significant inflammation in the subacromial subdeltoid bursa. Long head biceps tendon is normal in morphology, signal and location without tear. Subscapularis is normal in appearance with no tendinopathy or tear. Supraspinatus and infraspinatus are grossly intact without tear or tendinopathy. No significant atrophy. No shoulder joint effusion. Glenohumeral articular cartilage demonstrates no significant cartilage thinning. The glenoid labrum is normal in appearance. No productive or erosive arthropathy. Capsule demonstrates no inflammation or tear. Impression: 1. Trace amount of osseous edema distal clavicle possibly degenerative or representing a mild contusion. No AC ligament tear or joint space widening. 2. Otherwise normal MRI of the shoulder. No evidence of rotator cuff tear, arthropathy or other acute finding. [facility] Report Report Dictated on --- Final --- Dictating Physician: MD BALLARD ANTHONY J Signed Date and Time: 07/11/2021 2:57 pm Signed by: MD BALLARD ANTHONY J Transcribed Date and Time: 07/11/2021 2:58 [facility] Work Phone: [facility] Incoming Radiology Results From [facility] - 07/11/2021 2:58 PM EDT Patient Name: [facility] ACCESSION EXAM DATE/TIME PROCEDURE ORDERING PROVIDER [id number] 07/11/2021 11:53 EDT MRI Up Ext Joint w/o [id number] -NICOLASA NURA Contrast Left CPT code 36524 Reason For Exam (MRI Up Ext Joint w/o Contrast Left) pain Report Examination: MRI left shoulder Clinical Indication: pain Comparison: 03/08/2021 Findings: Multiplanar multisequence high field strength MRI images were obtained through the left shoulder without intravenous gadolinium. No fracture or subluxation. Minimal amount of osseous edema along the distal clavicle could be degenerative or could represent subacute contusion. Acromioclavicular joint within normal limits. AC ligament grossly intact. Slight lateral downsloping of the acromion. No significant inflammation in the subacromial subdeltoid bursa. Long head biceps tendon is normal in morphology, signal and location without tear. Subscapularis is normal in appearance with no tendinopathy or tear. Supraspinatus and infraspinatus are grossly intact without tear or tendinopathy. No significant atrophy. No shoulder joint effusion. Glenohumeral articular cartilage demonstrates no significant cartilage thinning. The glenoid labrum is normal in appearance. No productive or erosive arthropathy. Capsule demonstrates no inflammation or tear. Impression: 1. Trace amount of osseous edema distal clavicle possibly degenerative or representing a mild contusion. No AC ligament tear or joint space widening. 2. Otherwise normal MRI of the shoulder. No evidence of rotator cuff tear, arthropathy or other acute finding. [facility] Report Report Dictated on --- Final --- Dictating Physician: MD BALLARD ANTHONY J Signed Date and Time: 07/11/2021 2:57 pm Signed by: MD BALLARD ANTHONY J Transcribed Date and Time: 07/11/2021 2:58 [facility] Work Phone: [facility] Work Phone: MRI Up Ext Joint w/o Contras t Lefton 07-11-2021 MRI Up Ext Joint w/o Contrast Left Patient Name: [facility] ACCESSION EXAM DATE/TIME PROCEDURE ORDERING PROVIDER [id number] 07/11/2021 11:53 EDT MRI Up Ext Joint w/o [id number] -STEWART NUR Contrast Left CPT code 54740 Reason For Exam (MRI Up Ext Joint w/o Contrast Left) pain Report Examination: MRI left shoulder Clinical Indication: pain Comparison: 03/08/2021 Findings: Multiplanar multisequence high field strength MRI images were obtained through the left shoulder without intravenous gadolinium. No fracture or subluxation. Minimal amount of osseous edema along the distal clavicle could be degenerative or could represent subacute contusion. Acromioclavicular joint within normal limits. AC ligament grossly intact. Slight lateral downsloping of the acromion. No significant inflammation in the subacromial subdeltoid bursa. Long head biceps tendon is normal in morphology, signal and location without tear. Subscapularis is normal in appearance with no tendinopathy or tear. Supraspinatus and infraspinatus are grossly intact without tear or tendinopathy. No significant atrophy. No shoulder joint effusion. Glenohumeral articular cartilage demonstrates no significant cartilage thinning. The glenoid labrum is normal in appearance. No productive or erosive arthropathy. Capsule demonstrates no inflammation or tear. Impression: 1. Trace amount of osseous edema distal clavicle possibly degenerative or representing a mild contusion. No AC ligament tear or joint space widening. 2. Otherwise normal MRI of the shoulder. No evidence of rotator cuff tear, arthropathy or other acute finding. [facility] Res[facility] Report Report Dictated on Final Dictating Physician: MD BALLARD ANTHONY J Signed Date and Time: 07/11/2021 2:57 pm Signed by: MD BALLARD ANTHONY J Transcribed Date and Time: 07/11/2021 2:58 Normal [facility] XR KNEE LEFT (MIN 4 VIEWS)Or dered By: Stewart Nur on 07-11-2021 [id number] ACCESSION EXAM DATE/TIME PROCEDURE ORDERING PROVIDER [id number] 07/11/2021 11:21 EDT CR Knee Complete 4+ [id number] -STEWART NUR Views Left CPT code 01982 Reason For Exam (CR Knee Complete 4+ Views Left) pain Report CLINICAL INDICATION: Left knee pain. AP, lateral, tunnel, and patellar plain film views of the left knee were obtained. COMPARISON: None FINDINGS: No acute fracture or dislocation. No bony destruction. Joint spaces are maintained. No chondrocalcinosis. IMPRESSION: No acute bony abnormality. Report Dictated on --- Final --- Dictating Physician: MD QUEZADA LAURA Signed Date and Time: 07/11/2021 12:10 pm Signed by: MD QUEZADA LAURA Transcribed Date and Time: 07/11/2021 12:11 [facility] Work Phone: [facility] Incoming Radiology Results From [facility] - 07/11/2021 12:11 PM EDT Patient Name: [facility] Diagnostic Radiology ACCESSION EXAM DATE/TIME PROCEDURE ORDERING PROVIDER [id number] 07/11/2021 11:21 EDT CR Knee Complete 4+ [id number] -STEWART NUR Views Left CPT code 24096 Reason For Exam (CR Knee Complete 4+ Views Left) pain Report CLINICAL INDICATION: Left knee pain. AP, lateral, tunnel, and patellar plain film views of the left knee were obtained. COMPARISON: None FINDINGS: No acute fracture or dislocation. No bony destruction. Joint spaces are maintained. No chondrocalcinosis. IMPRESSION: No acute bony abnormality. Report Dictated on --- Final --- Dictating Physician: MD QUEZADA LAURA Signed Date and Time: 07/11/2021 12:10 pm Signed by: MD QUEZADA LAURA Transcribed Date and Time: 07/11/2021 12:11 [facility] Work Phone: [facility] Work Phone: XR CHEST (2 VW)Ordered By: Roberto Luu on 03-08-2021 Patient Name: [facility] Diagnostic Radiology ACCESSION EXAM DATE/TIME PROCEDURE ORDERING PROVIDER [id number] 03/08/2021 16:34 EDT CR Chest PA & LAT MD LUU JESSE CPT code 82451 Reason For Exam (CR Chest PA & LAT) Chest pain Report Examination: PA/Lateral chest Indication: Chest pain Findings: There is no focal consolidation, sizable pleural effusion or pneumothorax. The cardiac silhouette and mediastinum are within normal limits. Small osteophytes of the spine are present at multiple levels. Impression: No radiographic evidence of acute cardiopulmonary process. Report Dictated on --- Final --- Dictating Physician: MD ARNOLD KRIKOR Signed Date and Time: 03/08/2021 4:49 pm Signed by: MD ARNOLD KRIKOR Transcribed Date and Time: 03/08/2021 4:51 [facility] Work Phone: [facility] Incoming Radiology Results From [facility] - 03/08/2021 4:51 PM EDT Patient Name: [facility] Diagnostic Radiology ACCESSION EXAM DATE/TIME PROCEDURE ORDERING PROVIDER [id number] 03/08/2021 16:34 EDT CR Chest PA & LAT MD LUU JESSE CPT code 88368 Reason For Exam (CR Chest PA & LAT) Chest pain Report Examination: PA/Lateral chest Indication: Chest pain Findings: There is no focal consolidation, sizable pleural effusion or pneumothorax. The cardiac silhouette and mediastinum are within normal limits. Small osteophytes of the spine are present at multiple levels. Impression: No radiographic evidence of acute cardiopulmonary process. Report Dictated on --- Final --- Dictating Physician: MD ARNOLD KRIKOR Signed Date and Time: 03/08/2021 4:49 pm Signed by: MD ARNOLD KRIKOR Transcribed Date and Time: 03/08/2021 4:51 [facility] Work Phone: XR Shoulder Left 2 VWOrdered By: Demetrio Luu on 03-08-2021 Patient Name: [facility] Diagnostic Radiology ACCESSION EXAM DATE/TIME PROCEDURE ORDERING PROVIDER [id number] 03/08/2021 16:34 EDT CR Shoulder 2+ Views MD LUU JESSE Left CPT code 48615 Reason For Exam (CR Shoulder 2+ Views Left) Pain left shoulder Report Examination: Left shoulder three views Indication: Pain left shoulder Findings: The glenohumeral joint and AC joint are grossly unremarkable. No acute fracture or dislocation is noted. The soft tissues of the shoulder are unremarkable. Impression: No acute osseous abnormality. Report Dictated on --- Final --- Dictating Physician: MD ARNOLD KRIKOR Signed Date and Time: 03/08/2021 4:50 pm Signed by: MD ARNOLD KRIKOR Transcribed Date and Time: 03/08/2021 4:51 [facility] Work Phone: [facility] Incoming Radiology Results From [facility] - 03/08/2021 4:51 PM EDT Patient Name: [place] Diagnostic Radiology ACCESSION EXAM DATE/TIME PROCEDURE ORDERING PROVIDER [id number] 03/08/2021 16:34 EDT CR Shoulder 2+ Views MD LUU JESSE Left CPT code 53847 Reason For Exam (CR Shoulder 2+ Views Left) Pain left shoulder Report Examination: Left shoulder three views Indication: Pain left shoulder Findings: The glenohumeral joint and AC joint are grossly unremarkable. No acute fracture or dislocation is noted. The soft tissues of the shoulder are unremarkable. Impression: No acute osseous abnormality. Report Dictated on --- Final --- Dictating Physician: MD ARNOLD KRIKOR Signed Date and Time: 03/08/2021 4:50 pm Signed by: MD ARNOLD KRIKOR Transcribed Date and Time: 03/08/2021 4:51 [facility] Work Phone: Auto Diffon 02-26-2019 Basophils #/vol (Bld) 0.1 E3/mcL Normal 0.0-0.2 [facility] Comment on above: Order Comment: Order Added by Discern Expert. Performed By: #### 2 [id number] #### MARY JO RemHemo [address] [place] [address] Basophils/100 WBC (Bld) 1.7 % Normal 0.0-2.0 [facility] Comment on above: Order Comment: Order Added by Byron Expert. Performed By: #### 2 [id number] #### MARY JO RemHemo [facility] [place] [address] Eos Absolute 0.3 E3/mcL Normal 0.0-0.7 [facility] Comment on above: Order Comment: Order Added by Discern Expert. Performed By: #### 2 [id number] #### MARY JO Rem[facility] [address] [place] [address] Eosinophils/100 WBC (Bld) 5.4 % Normal 0.0-11.0 [facility] Comment on above: Order Comment: Order Added by Discern Expert. Performed By: #### 2 [id number] #### MARY JO Rem[facility] [address] [place] [address] Lymphocytes #/vol (Bld) 1.2 E3/mcL Normal 1.2-3.4 [facility] Comment on above: Order Comment: Order Added by Discern Expert. Performed By: #### 2 [id number] #### MARY JO [facility] [address] [place] [address] Lymphocytes/100 WBC (Bld) 23.9 % Normal 20.0-55.0 [facility] Comment on above: Order Comment: Order Added by Discern Expert. Performed By: #### 2 [id number] #### MARY JO Rem[facility] [address] [place] [address] [place] Absolute 0.3 E3/mcL Normal 0.0-0.7 [facility] Comment on above: Order Comment: Order Added by Discern Expert. Performed By: #### 2 [id number] #### MARY JO Rem[facility]emo [address] [place] [address] Monocytes/100 WBC (Bld) 6.5 % Normal 0.0-10.0 [facility] Comment on above: Order Comment: Order Added by Discern Expert. Performed By: #### 2 [id number] #### MARY JO Rem[facility] [address] [place] [address] Neutro Absolute 3.2 E3/mcL Normal 1.4-6.5 [facility] Comment on above: Order Comment: Order Added by Discern Expert. Performed By: #### 2 [id number] #### MARY JO Rem[facility] [address] [place] [address] Neutro Auto 62.5 % Normal 37.0-75.0 [facility] Comment on above: Order Comment: Order Added by Discern Expert. Performed By: #### 2 [id number] #### MARY JO Rem[facility] [address] [place] [address] BMPon 02-26-2019 Anion gap molar conc 14 mmol/L Normal 10-20 [facility] Comment on above: Performed By: #### 2 [id number] #### MARY JO [facility] [address] [place] [address] Calcium mass conc 9.1 mg/dL Normal 8.6-10.3 [facility] Comment on above: Performed By: #### 2 [id number] #### MARY JO [facility] [address] [place] [address] Chloride molar conc 99 mmol/L Normal 98-107 [facility] Comment on above: Performed By: #### 2 [id number] #### MARY JO [facility] [address] [place] [address] CO2 molar conc 23.0 mmol/L Normal 21.0-32.0 [facility] Comment on above: Performed By: #### 2 [id number] #### MARY JO [facility] [address] [place] [address] Creatinine mass conc 0.8 mg/dL Normal 0.5-1.3 [facility] Comment on above: Performed By: #### 2 559301 #### MARY JO [facility] [address] [place] [address] Glucose mass conc 331 mg/dL High 70-99 [facility] Comment on above: Performed By: #### 2 943131 #### MARY JO [facility] [address] [place] [address] Potassium molar conc 3.6 mmol/L Normal 3.5-5.3 [facility] Comment on above: Performed By: #### 2 055636 #### MARY JO [facility] [address] [place] [address] Sodium molar conc 132 mmol/L Low 136-145 [facility] Comment on above: Performed By: #### 2 507365 #### MARY JO [facility] [address] [place] [address] Urea nitrogen mass conc 7 mg/dL Normal 6-23 [facility] Comment on above: Performed By: #### 2 922888 #### MARY JO [facility] [address] [place] [address] Urea nitrogen/Creatinine mass ratio 8.8 ratio Normal 5.4-30.0 [facility] Comment on above: Performed By: #### 2 [id number] #### MARY JO [facility] [address] [place] [address] CBC w/ Auto Diffon 9 Erythrocyte distribution width Ratio (RBC) 13.2 % Normal 11.5-14.5 [facility] Comment on above: Performed By: #### 2 706007 #### MARY JO LozanoHemo [address] [place] [address] Hematocrit Volume Fraction (Bld) 45.3 % Normal 42.0-52.0 [facility] Comment on above: Performed By: #### 2 990659 #### MARY JO Rem[facility] [address] [place] [address] Hemoglobin mass conc (Bld) 15.7 g/dL Normal 13.5-18.0 [facility] Comment on above: Performed By: #### 2 [id number] #### MARY JO Rem[facility] [address] [place] [address] MCH Entitic mass (RBC) 29.5 pg Normal 27.0-31.0 [facility] Comment on above: Performed By: #### 2 [id number] #### MARY JO RemHemo [address] [place] [id number] MCHC mass conc (RBC) 34.7 g/dL Normal 33.0-37.0 [facility] Comment on above: Performed By: #### 2 [id number] #### MARY JO Rem[facility]emo [address] [place] [id number] MCV Entitic volume (RBC) 84.9 fL Normal 78.0-100.0 [facility] Comment on above: Performed By: #### 2 955881 #### MARY JO Rem[facility]emo [address] [place] [address] Platelet mean volume Entitic volume (Bld) 7.8 fL Normal 7.4-11.0 [facility] Comment on above: Performed By: #### 2 291716 #### MARY JO Rem[facility] [address] [place] [address] Platelets #/vol (Bld) 234 E3/mcL Normal 130-400 [facility] Comment on above: Performed By: #### 2 [id number] #### MARY JO Rem[facility]emo [address] [place] [address] RBC #/vol (Bld) 5.33 E6/mcL Normal 3.90-6.[address] [facility] Comment on above: Performed By: #### 2 259595 #### MARY JO RemHemo [address] [place] [address] WBC #/vol (Bld) 5.2 E3/mcL Normal 3.6-11.0 [facility] Comment on above: Performed By: #### 2 [id number] #### MARY JO RemHemo [address] [place] [id number] [address] Abdomen/Pelvis w/o Contra argenis 02-26-2019 CT Abdomen/Pelvis w/o Contrast Exam Date/Time: 02/26/2019 18:11 EDT Reason for Exam: left flank and LLQ pain;Pain Report STUDY: CT Abdomen/Pelvis w/o Contrast; 02/26/2019 6:11 pm INDICATION: Pain. Pain COMPARISON: No comparison available ACCESSION NUMBER(S): [id number] ORDERING CLINICIAN: Fransisco Mireles TECHNIQUE: CT of the abdomen and pelvis was performed. Contiguous axial images were obtained at 3 mm slice thickness through the abdomen and pelvis. Coronal and sagittal reconstructions at 3 mm slice thickness were performed. No contrast was administered FINDINGS: LOWER CHEST: The heart is normal in size without pericardial effusion. The lung bases are clear. ABDOMEN: LIVER: The liver is normal in size. No mass lesions. The liver is fatty infiltrated. BILE DUCTS: No intra or extrahepatic biliary dilatation. GALLBLADDER: There is cholelithiasis.. PANCREAS: Normal in size without evidence for mass lesions. No surrounding inflammatory change SPLEEN: Normal in size. No mass lesions ADRENAL GLANDS: Normal in size. No mass lesions KIDNEYS AND URETERS: The kidneys are normal in size. No stones, masses, or hydronephrosis. Exam Date/Time: 02/26/2019 18:11 EDT Report PELVIS: BLADDER: Distended without wall thickening or calculi REPRODUCTIVE ORGANS: The prostate is not enlarged. BOWEL: The bowel is without obstruction or inflammatory change. There is no free fluid or free air. The appendix is normal. VESSELS: There is no evidence for abdominal aortic aneurysm PERITONEUM/RETROPERITON EUM/LYMPH NODES: No retroperitoneal mass lesions or lymphadenopathy. ABDOMINAL WALL: The abdominal wall soft tissues appear normal. BONES: No suspicious osseous lesions are identified. No fracture. IMPRESSION: 1. Cholelithiasis 2. Fatty infiltration of the liver. FINAL REPORT Dictated: 02/26/2019 6:17 pm Deonte Patrick MD Signed (Electronic Signature): 02/26/2019 6:17 pm Signed by: Deonte Patrick MD Technologist: [facility] Normal [facility] Hep Func Panelon 02-26-2019 Albumin mass conc 4.2 g/dL Normal 3.4-5.0 [facility] Comment on above: Performed By: #### 2 [id number] #### [place] [address] [place] [address] Albumin/Globulin mass ratio 1.8 {ratio} Normal 1.1-1.9 [facility] Comment on above: Performed By: #### 2 [id number] #### [facility] [address] [place] [address] Alk Phos 88 Int._Unit/L Normal 33-120 [facility] Comment on above: Performed By: #### 2 [id number] #### [place] [address] [place] [address] ALT enzyme act/vol 68 Int._Unit/L High 10-52 [facility] Comment on above: Performed By: #### 2 [id number] #### [place] [address] [place] [address] AST enzyme act/vol 56 Int._Unit/L High 9-39 [facility] Comment on above: Performed By: #### 2 [id number] #### MARY JO Lozano[address] [address] Bili Direct 0.07 mg/dL Normal 0.00-0.30 [facility] Comment on above: Performed By: #### 2 595186 #### MARY JO Lozano[address] [address] Bili Indirect 0.51 mg/dL Normal [facility] Comment on above: Result Comment: No e stablished ranges available for the indirect bilirubin Performed By: #### 2 [id number] #### MARY JO Lozano[address] [address] Bili Total 0.58 mg/dL Normal 0.00-1.20 [facility] Comment on above: Performed By: #### 2 681065 #### [place] [address] [place] [address] Globulin mass conc (S) 2.0 g/dL Normal 2.0-4.0 [facility] Comment on above: Performed By: #### 2 500117 #### MARY JOCurry [address] [place] [address] Protein mass conc 6.6 g/dL Normal 6.4-8.2 [facility] Comment on above: Performed By: #### 2 [id number] #### MARY JO [facility] [address] [place] [address] Lipase Levelon 02-26-2019 Lipase Lvl 32 Int._Unit/L Normal 9-82 [facility] Comment on above: Performed By: #### 2 569681 #### MARY JO [facility] [address] [place] [address] UA Completeon 02-26-2019 Color Nom (U) Straw Normal Yellow [facility] Comment on above: Performed By: #### 8 [id number] #### MARY JO Urinalysis Automated Subsection [facility] [place] [address] Glucose mass conc (U) 3+ Abnormal Negative [facility] Comment on above: Performed By: #### 8 [id number] #### MARY JO Urinalysis Automated Subsection [facility] [place] [address] Ketones Ql (U) Negative Normal Negative [facility] Comment on above: Performed By: #### 8 [id number] #### MARY JO Urinalysis Automated Subsection [address] [place] [address] UA Blood Negative Normal Negative [facility] Comment on above: Performed By: #### 8 [id number] #### MARY JO Urinalysis Automated Subsection [facility] [place] [address] UA Clarity Clear Normal Clear [facility] Comment on above: Performed By: #### 8 [id number] #### MARY JO Urinalysis Automated Subsection [facility] [place] [address] UA Leuk Est Negative Normal Negative [facility] Comment on above: Performed By: #### 8 [id number] #### MARY JO Urinalysis Automated Subsection [facility] [place] [address] UA Nitrite Negative Normal Negative [facility] Comment on above: Performed By: #### 8 [id number] #### MARY JO Urinalysis Automated Subsection [facility] [place] [address] UA pH 6.0 Normal 4.6-8.0 [facility] Comment on above: Performed By: #### 8 [id number] #### MARY JO Urinalysis Automated Subsection [address] [place] [address] UA Protein Negative Normal Negative [facility] Comment on above: Performed By: #### 8 [id number] #### MARY JO Urinalysis Automated Subsection [address] [place] [address] UA Spec Grav 1.028 Normal 1.003-1.030 [facility] Comment on above: Performed By: #### 8 [id number] #### MARY JO Urinalysis Automated Subsection [address] [place] [address] UA Urobilinogen Negative Normal [facility] Comment on above: Result Comment: Due to a manufacturing issue, low positive urobilinogen results may be fasely positive. Correlate with urine bilirubin and additional clinical/laboratory findings to assess the risk of hemolytic anemia or liver disease. If clinically indicated, repeat testing with an alternate method is available by contacting the laboratory within 24 hours. Performed By: #### 8 [id number] #### MARY JO Urinalysis Automated Subsection [address] [place] [address] UA WBC 0-5 Normal 0-5 [facility] Comment on above: Performed By: #### 8 [id number] #### MARY JO Urinalysis Automated Subsection [address] [place] [address] Urobilinogen Qn (U) Negative Normal Negative [facility] Comment on above: Performed By: #### 8 [id number] #### MARY JO Urinalysis Automated Subsection [address] [place] [address] eGFRon 02-26-2019 GFR/1.73 sq M predicted among non-blacks MDRD vol rate/area (S/P/Bld) mL/min/{1.73_m2} Normal [facility] Comment on above: Order Comment: Order added by Discern Expert. Performed By: #### 1 [id number] #### MARY JO [facility] [address] [place], [place] [id number] Vital Signs Date Time Vital Sign Value Performing Clinician Facility 05-23-2025 13:02-0400 Diastolic blood pressure 74 mm[Hg] Wanda GOMEZ Work Phone: [facility] 05-23-2025 13:02-0400 Heart rate 74 /min Wanda MILLERC Work Phone: [facility] 05-23-2025 13:02-0400 Respiratory rate 16 /min Wanda Mata MATH TEACHER-C Work Phone: [facility] 05-23-2025 13:02-0400 SaO2% (BldA) [Mass fraction] 94 % Wanda Mata MATH TEACHER-C Work Phone: [facility] 05-23-2025 13:02-0400 Systolic blood pressure 123 mm[Hg] Wanda Mata MATH TEACHER-C Work Phone: [facility] 05-23-2025 12:39-0400 Body height 180.34 cm Wanda Mata MATH TEACHER-C Work Phone: [facility] 05-23-2025 12:39-0400 Body mass index (BMI) [Ratio] 35.1 kg/m2 Wanda Mata MATH TEACHER-C Work Phone: [facility] 05-23-2025 12:39-0400 Body temperature 96.7 [degF] Wanda Mata MATH TEACHER-C Work Phone: [facility] 05-23-2025 12:39-0400 Body weight 114.3 kg Wanda Mata MATH TEACHER-C Work Phone: [facility] 03-20-2025 15:55-0400 Body temperature 98.06 [degF] KATINA BANERJEE MD [facility] 03-20-2025 15:55-0400 Body weight 113.8 kg KATINA BANERJEE MD [facility] 03-20-2025 15:55-0400 Diastolic Blood Pressure Non-Invasive 72 mm[Hg] KATINA BANERJEE MD [facility] 03-20-2025 15:55-0400 Heart rate 82 /min KATINA BANERJEE MD [facility] 03-20-2025 15:55-0400 Respiratory rate 18 /min KATINA ABNERJEE MD [facility] 03-20-2025 15:55-0400 Systolic Blood Pressure Non-Invasive 117 mm[Hg] KATINA BANERJEE MD [facility] 02-05-2025 08:14-0400 Body temperature 97.9 [degF] Wanda Mata MATH TEACHER-C Work Phone: [facility] 02-05-2025 08:14-0400 Diastolic blood pressure 87 mm[Hg] Wanda Mata MATH TEACHER-C Work Phone: [facility] 02-05-2025 08:14-0400 Heart rate 65 /min Wanda Mata MATH TEACHER-C Work Phone: [facility] 02-05-2025 08:14-0400 Respiratory rate 18 /min Wanda Mata MATH TEACHER-C Work Phone: [facility] 02-05-2025 08:14-0400 SaO2% (BldA) [Mass fraction] 97 % Wanda Mata MATH TEACHER-C Work Phone: [facility] 02-05-2025 08:14-0400 Systolic blood pressure 135 mm[Hg] Wanda Mata MATH TEACHER-C Work Phone: [facility] 02-05-2025 05:59-0400 Body height 154.94 cm Wanda Mata MATH TEACHER-C Work Phone: [facility] 02-05-2025 05:59-0400 Body mass index (BMI) [Ratio] 48.7 kg/m2 Wanda Mata MATH TEACHER-C Work Phone: [facility] 02-05-2025 05:59-0400 Body weight 117 kg Wanda MILLERC Work Phone: [facility] 09-23-2024 11:20-0400 Diastolic blood pressure 78 mm[Hg] Ky Hurtado MD Work Phone: [facility] 09-23-2024 11:20-0400 Heart rate 81 /min Ky Hurtado MD Work Phone: [facility] 09-23-2024 11:20-0400 Respiratory rate 16 /min Ky Hurtado MD Work Phone: [facility] 09-23-2024 11:20-0400 SaO2% (BldA) [Mass fraction] 99 % Ky Hurtado MD Work Phone: [facility] 09-23-2024 11:20-0400 Systolic blood pressure 118 mm[Hg] Ky Hurtado MD Work Phone: [facility] 09-23-2024 10:35-0400 Body height 177.8 cm Ky Hurtado MD Work Phone: [facility] 09-23-2024 10:35-0400 Body mass index (BMI) [Ratio] 35.87 kg/m2 Ky Hurtado MD Work Phone: [facility] 09-23-2024 10:35-0400 Body temperature 98.49 [degF] yK Hurtado MD Work Phone: [facility] 09-23-2024 10:35-0400 Body weight 113.4 kg yK Hurtado MD Work Phone: [facility] 08-10-2024 17:21-0400 Blood Pressure Cuff Size SHIREEN HILL DO [facility] 08-10-2024 17:21-0400 Blood Pressure Location SHIREEN HILL DO [facility] 08-10-2024 17:21-0400 Blood Pressure Method SHIREEN HILL DO [facility] 08-10-2024 17:21-0400 Body height 177.8 cm SHIREEN LAGUERRE DO [facility] 08-10-2024 17:21-0400 Body temperature 98.06 [degF] SHIREEN LAGUERRE DO [facility] 08-10-2024 17:21-0400 Body weight 114.9 kg SHIREEN LAGUERRE DO [facility] 08-10-2024 17:21-0400 Diastolic Blood Pressure Non-Invasive 75 mm[Hg] SHIREEN LAGUERRE DO [facility] 08-10-2024 17:21-0400 Heart rate 76 /min SHIREEN LAGUERRE DO [facility] 08-10-2024 17:21-0400 Reason For Taking VItal Signs SHIREEN LAGUERRE DO [facility] 08-10-2024 17:21-0400 Respiratory rate 16 /min SHIREEN LAGUERRE DO [facility] 08-10-2024 17:21-0400 Systolic Blood Pressure Non-Invasive 118 mm[Hg] SHIREEN LAGUERRE DO [facility] 06-29-2024 16:29-0400 Body temperature 97.52 [degF] GILMA HYLTON DO [facility] 06-29-2024 16:29-0400 Body weight 115.6 kg GILMA HYLTON DO [facility] 06-29-2024 16:29-0400 Diastolic Blood Pressure Non-Invasive 79 mm[Hg] GILMA HYLTON DO [facility] 06-29-2024 16:29-0400 Heart rate 88 /min GILMA HYLTON DO [facility] 06-29-2024 16:29-0400 Respiratory rate 18 /min GILMA HYLTON DO [facility] 06-29-2024 16:29-0400 Systolic Blood Pressure Non-Invasive 119 mm[Hg] GILMA HYLTON DO [facility] 04-01-2024 02:43-0400 Diastolic blood pressure 80 mm[Hg] Triston Herrera MD Work Phone: [facility] 04-01-2024 02:43-0400 Heart rate 80 /min Triston Herrera MD Work Phone: [facility] 04-01-2024 02:43-0400 Respiratory rate 16 /min Triston Herrera MD Work Phone: [facility] 04-01-2024 02:43-0400 SaO2% (BldA) [Mass fraction] 100 % Triston Herrera MD Work Phone: [facility] 04-01-2024 02:43-0400 Systolic blood pressure 124 mm[Hg] Triston Herrera MD Work Phone: [facility] 04-01-2024 01:12-0400 Body height 180.3 cm Triston Herrera MD Work Phone: [facility] 04-01-2024 01:12-0400 Body mass index (BMI) [Ratio] 34.87 kg/m2 Triston Herrera MD Work Phone: [facility] 04-01-2024 01:12-0400 Body temperature 97.7 [degF] Triston Herrera MD Work Phone: [facility] 04-01-2024 01:12-0400 Body weight 113.4 kg Triston Herrera MD Work Phone: [facility] 02-27-2024 09:18-0400 Body temperature 99.14 [degF] DR LUIS EDEN DO [facility] 02-27-2024 09:18-0400 Diastolic Blood Pressure Non-Invasive 81 mm[Hg] DR LUIS EDEN DO [facility] 02-27-2024 09:18-0400 Heart rate 91 /min DR LUIS EDEN DO [facility] 02-27-2024 09:18-0400 Respiratory rate 16 /min DR LUIS EDEN DO [facility] 02-27-2024 09:18-0400 Systolic Blood Pressure Non-Invasive 130 mm[Hg] DR LUIS EDEN DO [facility] 02-07-2024 08:36-0400 Body temperature 98.2 [degF] [facility] 02-07-2024 08:36-0400 Diastolic blood pressure 81 mm[Hg] [facility] 02-07-2024 08:36-0400 Heart rate 75 /min [facility] 02-07-2024 08:36-0400 Respiratory rate 16 /min [facility] 02-07-2024 08:36-0400 SaO2% (BldA) [Mass fraction] 95 % [facility] 02-07-2024 08:36-0400 Systolic blood pressure 123 mm[Hg] [facility] 02-07-2024 06:38-0400 Body height 180.34 cm [facility] 02-07-2024 06:38-0400 Body mass index (BMI) [Ratio] 34.2 kg/m2 [facility] 02-07-2024 06:38-0400 Body weight 111.4 kg [facility] 08-27-2023 20:09-0400 Body temperature 98.01 [degF] Devon Peterson DO Work Phone: [facility] 08-27-2023 20:09-0400 Diastolic blood pressure 76 mm[Hg] Devon Marcusmargo DO Work Phone: [facility] 08-27-2023 20:09-0400 Heart rate 74 /min Devon Marcusmargo DO Work Phone: [facility] 08-27-2023 20:09-0400 Respiratory rate 18 /min Devon Marcusmargo DO Work Phone: [facility] 08-27-2023 20:09-0400 SaO2% (BldA) [Mass fraction] 99 % Devon Peterson DO Work Phone: [facility] 08-27-2023 20:09-0400 Systolic blood pressure 118 mm[Hg] Devon Peterson DO Work Phone: [facility] 05-10-2023 09:55-0400 Body temperature 97.5 [degF] [facility] 05-10-2023 09:55-0400 Diastolic blood pressure 69 mm[Hg] [facility] 05-10-2023 09:55-0400 Heart rate 70 /min [facility] 05-10-2023 09:55-0400 Respiratory rate 16 /min [facility] 05-10-2023 09:55-0400 SaO2% (BldA) [Mass fraction] 96 % [facility] 05-10-2023 09:55-0400 Systolic blood pressure 109 mm[Hg] [facility] 05-10-2023 07:33-0400 Body height 180.34 cm [facility] 05-10-2023 07:33-0400 Body mass index (BMI) [Ratio] 35.9 kg/m2 [facility] 05-10-2023 07:33-0400 Body weight 117.02 kg [facility] 01-11-2023 09:01-0500 Body height 180.34 cm [facility] 01-11-2023 09:01-0500 Body mass index (BMI) [Ratio] 36.2 kg/m2 [facility] 01-11-2023 09:01-0500 Body temperature 97.2 [degF] [facility] 01-11-2023 09:01-0500 Body weight 117.93 kg [facility] 01-11-2023 09:01-0500 Diastolic blood pressure 86 mm[Hg] [facility] 01-11-2023 09:01-0500 Heart rate 80 /min [facility] 01-11-2023 09:01-0500 Respiratory rate 16 /min [facility] 01-11-2023 09:01-0500 SaO2% (BldA) [Mass fraction] 98 % [facility] 01-11-2023 09:01-0500 Systolic blood pressure 137 mm[Hg] [facility] 05-07-2022 21:30-0400 Diastolic blood pressure 82 mm[Hg] Garth Shah MD Work Phone: [facility] 05-07-2022 21:30-0400 Heart rate 80 /min Garth Shah MD Work Phone: [facility] 05-07-2022 21:30-0400 Respiratory rate 18 /min Garth Shah MD Work Phone: [facility] 05-07-2022 21:30-0400 SaO2% (BldA) [Mass fraction] 100 % Garth Shha MD Work Phone: [facility] 05-07-2022 21:30-0400 Systolic blood pressure 115 mm[Hg] Garth Shah MD Work Phone: [facility] 05-07-2022 19:27-0400 Body mass index (BMI) [Ratio] 35.87 kg/m2 Garth Shah MD Work Phone: [facility] 05-07-2022 19:27-0400 Body temperature 98.29 [degF] Garth Shah MD Work Phone: [facility] 05-07-2022 19:27-0400 Body weight 113.4 kg Garth Shah MD Work Phone: [facility] 01-20-2022 18:56-0500 Diastolic blood pressure 81 mm[Hg] Jason Jarrett MD Work Phone: [facility] 01-20-2022 18:56-0500 Heart rate 84 /min Jason Jarrett MD Work Phone: [facility] 01-20-2022 18:56-0500 Respiratory rate 14 /min Jason Jarrett MD Work Phone: [facility] 01-20-2022 18:56-0500 SaO2% (BldA) [Mass fraction] 99 % Jason Jarrett MD Work Phone: [facility] 01-20-2022 18:56-0500 Systolic blood pressure 119 mm[Hg] Jason Jarrett MD Work Phone: [facility] 01-20-2022 18:18-0500 Body height 177.8 cm Jason Jarrett MD Work Phone: [facility] 01-20-2022 18:18-0500 Body mass index (BMI) [Ratio] 36.73 kg/m2 Jason Jarrett MD Work Phone: [facility] 01-20-2022 18:18-0500 Body temperature 98.91 [degF] Jason Jarrett MD Work Phone: [facility] 01-20-2022 18:18-0500 Body weight 116.12 kg Jason Jarrett MD Work Phone: [facility] 10-13-2021 11:27-0500 Body temperature 97.88 [degF] FRANK SMITH DO [facility] 10-13-2021 11:27-0500 Diastolic blood pressure 85 mm[Hg] FRANK SMITH DO [facility] 10-13-2021 11:27-0500 Heart rate 93 /min FRANK SMITH DO [facility] 10-13-2021 11:27-0500 Respiratory rate 16 /min FRANK SMITH DO [facility] 10-13-2021 11:27-0500 Systolic blood pressure 129 mm[Hg] FRANK SMITH DO [facility] 09-11-2021 11:08-0400 Diastolic blood pressure 70 mm[Hg] Philip Doran MD Work Phone: [facility] Work Phone: 09-11-2021 11:08-0400 Heart rate 80 /min Philip Doran MD Work Phone: [facility] Work Phone: 09-11-2021 11:08-0400 Respiratory rate 16 /min Philip Doran MD Work Phone: [facility] Work Phone: 09-11-2021 11:08-0400 SaO2% (BldA) [Mass fraction] 95 % hPilip Doran MD Work Phone: [facility] Work Phone: 09-11-2021 11:08-0400 Systolic blood pressure 108 mm[Hg] Philip Doran MD Work Phone: [facility] Work Phone: 09-11-2021 10:11-0400 Body temperature 97.5 [degF] Philip Doran MD Work Phone: [facility] Work Phone: 09-11-2021 07:49-0400 Body height 180.3 cm Philip Doran MD Work Phone: [facility] Work Phone: 09-11-2021 07:49-0400 Body mass index (BMI) [Ratio] 34.59 kg/m2 Philip Doran MD Work Phone: [facility] Work Phone: 09-11-2021 07:49-0400 Body weight 112.49 kg Philip Doran MD Work Phone: [facility] Work Phone: 09-04-2021 12:05-0400 Body height 180.3 cm Philip Doran MD Work Phone: [facility] Work Phone: 09-04-2021 12:05-0400 Body mass index (BMI) [Ratio] 34.62 kg/m2 Philip Doran MD Work Phone: [facility] Work Phone: 09-04-2021 12:05-0400 Body weight 112.61 kg Philip Doran MD [facility] Phone: [facility] Work Phone: 09-04-2021 12:03-0400 Body temperature 97.39 [degF] Philip Doran MD Work Phone: [facility] Work Phone: 09-04-2021 12:03-0400 Diastolic blood pressure 85 mm[Hg] Philip Doran MD Work Phone: [facility] Work Phone: 09-04-2021 12:03-0400 Heart rate 88 /min Philip Doran MD Work Phone: [facility] Work Phone: 09-04-2021 12:03-0400 Respiratory rate 16 /min Philip Doran MD Work Phone: [facility] Work Phone: 09-04-2021 12:03-0400 SaO2% (BldA) [Mass fraction] 98 % Philip Doran MD Work Phone: [facility] Work Phone: 09-04-2021 12:03-0400 Systolic blood pressure 124 mm[Hg] Philip Doran MD Work Phone: [facility] Work Phone: 09-02-2021 11:11-0400 Body mass index (BMI) [Ratio] 28.59 kg/m2 Rafael Ring MD Work Phone: [facility] Work Phone: 09-02-2021 11:11-0400 Body temperature 97.81 [degF] Rafael Ring MD Work Phone: [facility] Work Phone: 09-02-2021 11:11-0400 Body weight 92.99 kg Rafael Ring MD Work Phone: [facility] Work Phone: 09-02-2021 11:11-0400 Diastolic blood pressure 75 mm[Hg] Rafael Ring MD Work Phone: [facility] Work Phone: 09-02-2021 11:11-0400 Heart rate 77 /min Rafael Ring MD Work Phone: [facility] Work Phone: 09-02-2021 11:11-0400 Respiratory rate 16 /min Rafael Ring MD Work Phone: [facility] Work Phone: 09-02-2021 11:11-0400 SaO2% (BldA) [Mass fraction] 98 % Rafael Ring MD Work Phone: [facility] Work Phone: 09-02-2021 11:11-0400 Systolic blood pressure 113 mm[Hg] Rafael Ring MD Work Phone: [facility] Work Phone: 03-08-2021 17:25-0400 Diastolic blood pressure 69 mm[Hg] Demetrio Luu MD Work Phone: [facility] Work Phone: 03-08-2021 17:25-0400 Heart rate 93 /min Demetrio Luu MD Work Phone: [facility] Work Phone: 03-08-2021 17:25-0400 Respiratory rate 20 /min Demetrio Luu MD Work Phone: [facility] Work Phone: 03-08-2021 17:25-0400 SaO2% (BldA) [Mass fraction] 97 % Demetrio Luu MD Work Phone: [facility] Work Phone: 03-08-2021 17:25-0400 Systolic blood pressure 112 mm[Hg] Demetrio Luu MD Work Phone: [facility] Work Phone: 03-08-2021 16:00-0400 Body temperature 97.9 [degF] Demetrio Luu MD Work Phone: [facility] Work Phone: 12-27-2019 19:04-0500 BMI (Body Mass Index) 36.96 kg/m2 Jason Mcgowana [facility] Work Phone: 12-27-2019 19:04-0500 Body Temperature 98.1 [degF] Jason Mcgowana [facility] Work Phone: 12-27-2019 19:04-0500 Body weight 120.2 kg Jason Mcgowana [facility] Work Phone: 12-27-2019 19:04-0500 BP Diastolic 94 mm[Hg] Jason Mcgowana [facility] Work Phone: 12-27-2019 19:04-0500 BP Systolic 141 mm[Hg] Jason Jarrett [facility] Work Phone: 12-27-2019 19:04-0500 Height 180.3 cm Jason Mcgowana [facility] Work Phone: 12-27-2019 19:04-0500 Pulse (Heart Rate) 100 /min Jason Mcgowana [facility] Work Phone: 12-27-2019 19:04-0500 Pulse Oximetry 96 % Jasonlei Mcgowana [facility] Work Phone: 12-27-2019 19:04-0500 Respiratory Rate 16 /min Jasonlei Mcgowana [facility] Work Phone: Encounters Encounter Date Encounter Type Care Provider Facility Start: 08-06-2025 ambulatory Marc Allan y:[facility] Start: 08-02-2025 End: 08-02-2025 ambulatory WANDA MATA [employer] WORKER-[employer]TON T[employer]ER Facility:[facility] Start: 08-02-2025 End: 08-02-2025 Patient encounter procedure WANDA A ADOLFO [employer] WORKER-BUTTON TACKER [facility] Start: 07-20-2025 End: 07-20-2025 ambulatory PA-C GENE HAUSER Facility:[facility] Start: 07-20-2025 End: 07-20-2025 Patient encounter procedure GENE CEBALLOSPELON [facility] Start: 07-11-2025 ambulatory WANDA ROGERS [employer] WORKER-BUTTON TACKER Facility:[facility] Start: 07-02-2025 ambulatory Marc Allan y:[facility] Start: 06-18-2025 End: 06-22-2025 ambulatory WANDA MATA [employer] WORKER-BUTTON TACKER Facility:[facility] Start: 06-18-2025 End: 06-22-2025 Outreach Lab WANDA Curry ADOLFO [employer] WORKER-BUTTON TACKER [facility] Start: 06-18-2025 End: 06-18-2025 ambulatory WANDA MATA [employer] WORKER-BUTTON TACKER Facility:[facility] Start: 06-18-2025 End: 06-18-2025 Patient encounter procedure WANDA MATA [employer] WORKER-[employer]TON T[employer]ER [facility] Start: 05-23-2025 ambulatory Fabian Conde MATH TEACHER Facilit y:[facility] Start: 05-23-2025 Non-patient / Non-visit Dr. Aragon Of yoanna [facility] Start: 05-23-2025 End: 05-23-2025 ambulatory Wanda Mata MATH TEACHER-C Work Phone: -[facility] Start: 05-23-2025 End: 05-23-2025 Patient encounter procedure Fabian Conde MATH TEACHER-C -[facility] Work Phone: Start: 05-23-2025 End: 05-23-2025 ambulatory Fabian Conde NP Facility:[facility] Start: 05-11-2025 End: 05-11-2025 ambulatory SHIREEN IVERSON MD Facility:[facility] Start: 05-11-2025 End: 05-11-2025 Patient encounter procedure SHIREEN IVERSON MD [facility] Start: 03-20-2025 End: 03-20-2025 Emergency department patient visit KATINA BANERJEE MD [facility] Start: 03-02-2025 End: 03-02-2025 ambulatory WANDA MATA [employer] WORKER-[employer]TON T[employer]ER Facility:[facility] Start: 02-23-2025 End: 02-23-2025 ambulatory WANDA MATA [employer] WORKER-[employer]TON T[employer]ER Facility:[facility] Start: 02-05-2025 End: 02-05-2025 Admission to same day surgery center Dr. Marc Aquino MD [facility] Start: 02-05-2025 End: 02-05-2025 ambulatory Wanda Mata MATH TEACHER-C Work Phone: [facility] Work Phone: Start: 01-30-2025 End: 01-30-2025 Emergency department patient visit DEMETRIO MCLAUGHLIN MD Facility:[facility] Start: 09-23-2024 End: 09-23-2024 Subsequent hospital visit by physician [facility] Radiology Comment on above: Arrived Start: 09-23-2024 End: 09-23-2024 Emergency department patient visit Ky Hurtado MD Work Phone: [facility] ED Comment on above: Finger pain, left (P rimary Dx) Start: 09-11-2024 End: 09-11-2024 ambulatory Marc Aquino Facility:[facility] Start: 08-10-2024 End: 08-10-2024 Emergency department patient visit SHIREEN LAGUERRE DO [facility] Start: 08-04-2024 End: 08-04-2024 Patient encounter procedure SURENDRA ROY PA-C [facility] Start: 07-19-2024 ambulatory WANDA ROGERS [employer] WORKER-[employer]TON T[employer]ER Facility:[facility] Start: 06-29-2024 End: 06-29-2024 Emergency department patient visit GILMA HYLTON DO [facility] Start: 04-01-2024 End: 04-01-2024 Subsequent hospital visit by physician [facility] Radiology Comment on above: Arrived Start: 04-01-2024 End: 04-01-2024 Emergency department patient visit Triston Herrera MD Work Phone: [facility] ED Comment on above: Chest pain, unspecif ied type (Primary Dx) Start: 02-27-2024 End: 02-27-2024 Emergency department patient visit DR LUIS EDEN DO [facility] Start: 02-07-2024 End: 02-07-2024 Admission to same day surgery center [facility] Start: 02-07-2024 End: 02-07-2024 ambulatory [facility] Work Phone: Start: 12-27-2023 End: 12-31-2023 ambulatory WANDA MATA [employer] WORKER-[employer]TON T[employer]ER Facility:[facility] Start: 12-27-2023 End: 12-31-2023 Outreach Lab WANDA MATA [employer] WORKER-[employer]TON TACKER [facility] Start: 12-17-2023 End: 12-17-2023 Emergency department patient visit DEMETRIO MCLAUGHLIN MD Facility:[facility] Start: 12-15-2023 End: 12-15-2023 ambulatory REGIS REAGAN MD Facility:[facility] Start: 12-15-2023 End: 12-15-2023 Patient encounter procedure REGIS REAGAN MD [facility] Start: 11-26-2023 End: 11-26-2023 ambulatory JIGNA BARBOSA BUTTON TACKER Facility:[facility] Start: 11-26-2023 End: 11-26-2023 Patient encounter procedure JIGNA BARBOSA BUTTON TACKER [facility] Start: 10-07-2023 End: 10-07-2023 ambulatory FABIAN CONDE [employer] WORKER-[employer]TON TACKER Facility:[facility] Start: 10-07-2023 End: 10-07-2023 Patient encounter procedure FABIAN CONDE [employer] WORKER-[employer]TON TACKER [facility] Start: 09-14-2023 End: 09-14-2023 Emergency department patient visit WANDA MATA [employer] WORKER-[employer]TON TACKER Facility:[facility] Start: 09-02-2023 End: 09-02-2023 ambulatory WANDA MATA [employer] WORKER-[employer]TON T[employer]ER Facility:[facility] Start: 09-02-2023 End: 09-02-2023 Patient encounter procedure FABIAN CONDE [employer] WORKER-[employer]TON T[employer]ER [facility] Start: 08-27-2023 End: 08-27-2023 Subsequent hospital visit by physician [facility] Radiology Comment on above: Arrived Start: 08-27-2023 End: 08-27-2023 Emergency department patient visit Devon Peterson DO Work Phone: [facility] ED Comment on above: Pain of left hand (P rimary Dx) Start: 08-13-2023 End: 08-17-2023 ambulatory WANDA MATA [employer] WORKER-BUTTON TACKER Facility:[facility] Start: 08-13-2023 End: 08-13-2023 ambulatory WANDA MATA [employer] WORKER-BUTTON TACKER Facility:[facility] Start: 08-13-2023 End: 08-13-2023 Patient encounter procedure WANDA MATA [employer] WORKER-[employer]TON TACKER [facility] Start: 05-27-2023 End: 05-27-2023 Patient encounter procedure JORDAN AQUINO [facility] Start: 05-10-2023 End: 05-10-2023 [facility] Start: 05-10-2023 End: 05-10-2023 ambulatory [facility] Work Phone: Start: 01-14-2023 End: 01-14-2023 Patient encounter procedure JITENDRA VICKERS [facility] Start: 01-11-2023 End: 01-11-2023 [facility] Start: 01-11-2023 End: 01-11-2023 ambulatory [facility] Work Phone: Start: 05-14-2022 End: 05-14-2022 Patient encounter procedure SYEDA MCGARRY [employer] WORKER-BUTTON TACKER [facility] Start: 05-07-2022 End: 05-07-2022 Emergency department patient visit Garth Shah MD Work Phone: [facility] Comment on above: Nausea (Primary Dx); Diarrhea, unspecified type Start: 01-20-2022 End: 01-20-2022 Emergency department patient visit Jason Jarrett MD Work Phone: [facility] Comment on above: Chest pain, unspecif ied type (Primary Dx) Start: 01-07-2022 End: 01-07-2022 Patient encounter procedure ADRIÁN COREY [employer] WORKER-BUTTON TACKER [facility] Start: 10-13-2021 End: 10-13-2021 Emergency department patient visit FRANK SMITH DO [facility] Start: 09-11-2021 End: 09-11-2021 Subsequent hospital visit by physician Philip Doran MD Work Phone: [facility] General Surgery Comment on above: Biliary colic (Prima ry Dx) Start: 09-04-2021 End: 09-04-2021 Subsequent hospital visit by physician Philip Doran MD Work Phone: [facility] Pre-Admit Testing Comment on above: Arrived Start: 09-02-2021 End: 09-02-2021 Emergency department patient visit Rafael Ring MD Work Phone: [facility] Comment on above: Calculus of gallblad markel without cholecystitis without obstruction (Primary Dx); Hyperglycemia Start: 08-26-2021 End: 08-26-2021 Subsequent hospital visit by physician Long Gonzalez DO Work Phone: [facility] MRI Comment on above: Pain in central left upper extremity; Elevated LFTs Start: 07-11-2021 End: 07-11-2021 Subsequent hospital visit by physician Stewart eCsar NP Work Phone: [facility] Comment on above: Acute pain of left k nee; Pain and swelling of left shoulder Start: 03-08-2021 End: 03-08-2021 Emergency department patient visit Demetrio Luu MD Work Phone: [facility] Comment on above: Left shoulder pain, unspecified chronicity (Primary Dx); Chest pain, unspecified type Start: 12-27-2019 End: 12-27-2019 Emergency department patient visit Jason Jarrett Work Phone: [facility] Comment on above: Acute pain of left s houlder (Primary Dx); Hidradenitis axillaris; Diastolic blood pressure 90 mm Hg or higher Start: 02-26-2019 End: 02-26-2019 Emergency department patient visit [facility] Facility:[facility] Start: 02-26-2019 Patient encounter procedure Facility:[id number] Procedures Date Procedure Procedure Detail Performing Clinician Start: 05-23-2025 Creatinine blood Mahesh vasquez Adolfo MATH TEACHER-C Work Phone: Start: 05-23-2025 CT angiography of co ronary arteries Wanda Mata MATH TEACHER-C Work Phone: Start: 02-05-2025 Fluoroscopic guidance E pallavi Adolfo MATH TEACHER-C Work Phone: Start: 02-05-2025 X-ray of cervical spine Wanda Mata MATH TEACHER-C Work Phone: Start: 02-05-2025 Destructive procedur e of nerve Wanda Mata MATH TEACHER-C Work Phone: Start: 09-23-2024 Radex hand minimum 3 views Ky Hurtado MD Work Phone: Start: 04-01-2024 Radiologic exam ches t single view Triston Herrera MD Work Phone: Start: 04-01-2024 Basic metabolic pane l calcium total Triston Herrera MD Work Phone: Start: 04-01-2024 Ecg routine ecg w/le ast 12 lds trcg only w/o i&r Triston Herrera MD Work Phone: Start: 02-07-2024 Epidural anesthesia Start: 08-27-2023 Radex hand minimum 3 views Devon Peterson Work Phone: Start: 05-10-2023 Radio Frequency Abla tion (Left) Start: 01-11-2023 Local anesthetic cer vical epidural block Start: 01-11-2023 Fluoroscopy guided i njection of cervical spinal nerve root Start: 01-11-2023 Radiography of spine Start: 05-07-2022 Urnls dip stick/tabl et rgnt auto w/o microscopy Garth Shah MD Work Phone: Start: 05-07-2022 Radiologic exam ches t single view Garth Shah MD Work Phone: Start: 05-07-2022 Comprehensive metabo lic panel Garth Shah MD Work Phone: Start: 01-20-2022 Radiologic exam ches t 2 views Jason Jarrett MD Work Phone: Start: 01-20-2022 Ecg routine ecg w/le ast 12 lds w/i&r Jason Jarrett MD Work Phone: Start: 09-11-2021 End: 09-11-2021 Gluc bld gluc mntr dev cleared fda spec home use Philip Doran MD Work Phone: Start: 09-11-2021 Gluc bld gluc mntr d ev cleared fda spec home use Philip Doran MD Work Phone: Start: 09-02-2021 POCT VENOUS Rafael Ring MD Work Phone: Start: 09-02-2021 End: 09-02-2021 Basic metabolic panel calcium total Rafael Ring MD Work Phone: Start: 09-02-2021 Hepatic function panel Rafael Ring MD Work Phone: Start: 08-26-2021 Mri spinal canal cer vical w/o contrast matrl Long Hines Carlos DO Work Phone: Start: 08-26-2021 Us abdominal real ti me w/image limited Long Sylvesterjosephcurry DO Work Phone: Start: 07-11-2021 Mri any jt upper ext remity w/o contrast matrl Stewart Nur [employer] WORKER - MATH TEACHER Work Phone: Start: 07-11-2021 Radiologic exam knee complete 4/more views Stewart Nur [employer] WORKER - MATH TEACHER Work Phone: Start: 03-08-2021 Radex shoulder compl ete minimum 2 views Demetrio Luu MD Work Phone: Start: 03-08-2021 Radiologic exam ches t 2 views Demetrio Luu MD Work Phone: Start: 02-01-2020 Lipid 1996 panel - S tristan or Plasma Devon Peterson DO Work Phone: Start: 11-22-1995 Tonsillectomy ADRIÁN ONEIL [employer] WORKER-BUTTON TACKER Cholecystectomy ADRÁIN GONZALEZ [employer] WORKER-BUTTON TACKER Plan of Treatment Date Care Activity Detail Author Start: 2059 RSV Immunization for Adults (1 - 1-dose 75+ series) RSV Immunization for Adults (1 - 1-dose 75+ series) [facility] Start: 2044 RSV Immunization age d 60 or older (1 - 1-dose 60+ series) RSV Immunization aged 60 or older (1 - 1-dose 60+ series) [facility] Start: 2034 Shingles Vaccine (1 of 2) Shingles V accine (1 of 2) [facility] Work Phone: Start: 2034 Zoster Vaccines (1 of 2) Zoster Vacc kristy (1 of 2) [facility] Start: 05-23-2025 Following clinical pathway protocol [facility] Start: 04-01-2025 Diabetes: Estimated Glomerular Filtration Rate for Kidney [facility] Diabetes: Estimated Glomerular Filtration Rate for [facility]ney [facility] Start: 02-05-2025 Dstr nrolytc agnt parverteb fct addl crvcl/th[facility] Start: 02-05-2025 Dstr nrolytc agnt parverteb fct sngl crvcl/thora DESTROY CERV/THOR FACET T [facility] Start: 02-05-2025 Fluoroscopic guidance O.R. Fluoro fo r C-Arm [facility] Start: 02-05-2025 X-ray of cervical spine Cerv Spine 4 or 5 Views [facility] Start: 02-05-2025 Patient discharge [facility] Start: 07-23-2024 COVID-19 Vaccine ( season) COVID-19 Vaccine ( season) [facility] Start: 07-23-2024 Influenza vaccination Influenza Vacc ine (#1) [facility] Start: 02-07-2024 Fluoroscopic guidance O.R. Fluoro fo r C-Arm [facility] Start: 02-07-2024 X-ray of lumbar spin e, two or three views Lumbar Spine 2 or 3 Views [facility] Start: 02-07-2024 Patient discharge [facility] Start: 07-23-2023 COVID-19 Vaccine ( season) COVID-19 Vaccine ( season) [facility] Start: 07-23-2023 Influenza vaccination Influenza Vacc ine (#1) [facility] Start: 05-10-2023 Fluoroscopic guidance O.R. Fluoro fo r C-Arm [facility] Start: 05-10-2023 X-ray of cervical spine Cerv Spine 4 or 5 Views [facility] Start: 05-10-2023 Patient discharge [facility] Start: 01-11-2023 Njx dx/ther sbst int rlmnr crv/thrc w/img gdn NJX INTERLAMINAR CRV/THRC [facility] [facility] Start: 01-11-2023 Radiography of spine [facility] Start: 01-11-2023 Patient discharge [facility] Start: 07-16-2022 Hemoglobin A1c measurement Diabetes: Hemoglobin A1C [facility] Start: 10-16-2021 Hemoglobin A1c measurement A1C test (Diabetic or Prediabetic) [facility] Start: 09-22-2021 COVID-19 Vaccine (3 - Booster for Moderna series) COVID-19 Vaccine (3 - Booster for Moderna series) [facility] Start: 09-11-2021 End: 09-11-2021 Patient encounter procedure 09/11/2021 Appointment General Surgery Philip Doran MD [address] [place] [address], [address] [place] [address] [phone] [facility] General Surgery Start: 09-10-2021 End: 09-10-2021 Patient encounter procedure 09/10/2021 Office Visit Family Medicine Long Gonzalez DO [address] [place] [address] [phone] [facility] Start: 09-01-2021 End: 09-01-2021 Patient encounter procedure 09/01/2021 Office Visit Family Long Thompson, DO [address] [place] [address] [phone] [facility] Start: 08-06-2021 End: 08-06-2021 Patient encounter procedure 08/06/2021 Office Visit [facility] Long Gonzalez, DO [address] [place] [address] [phone] [facility] Start: 07-23-2021 Influenza vaccination [facility] Work Phone: Start: 06-17-2021 COVID-19 Vaccine (3 - Moderna series) COVID-19 Vaccine (3 - Moderna series) [facility] Start: 03-26-2021 Hemoglobin A1c measurement A1C test (Diabetic or Prediabetic) [facility] Work Phone: Start: 01-31-2021 Lipid panel [facility] Start: 01-19-2020 End: 01-19-2020 Office Visit 01/19/2020 Office Visit [facility] Long Gonzalez, DO [address] [place] [address] [phone] [facility] Start: 07-23-2019 Influenza vaccination Flu vaccine (# 1) [facility] Work Phone: Start: 08-20-2007 DTaP/Tdap/Td Vaccine s (1 - Tdap) DTaP/Tdap/Td Vaccines (1 - Tdap) [facility] Start: 2003 DTaP/Tdap/Td vaccine (1 - Tdap) DTaP/Tdap/Td vaccine (1 - Tdap) [facility] Start: 2003 Hepatitis B vaccine (1 of 3 - Risk 3-dose series) Hepatitis B vaccine (1 of 3 - Risk 3-dose series) [facility] Start: 2003 Hepatitis B Vaccines (1 of 3 - 19+ 3-dose series) Hepatitis B Vaccines (1 of 3 - 19+ 3-dose series) [facility] Start: 2002 Diabetes: Urine Albumin-Creatinine Ratio for Kidney Health Diabetes: Urine Albumin-Creatinine Ratio for Kidney Health [facility] Start: 2002 Diabetic microalbumi venkatesh test Diabetic microalbuminuria test [facility] Work Phone: Start: 2002 Diabetic retinal exam Diabetic retin al exam [facility] Start: 2002 Hepatitis C screening [facility] Start: 2002 Urine screening for protein Diabetic microalbuminuria test [facility] Start: 2000 COVID-19 Vaccine (1) COVID-19 Vaccin e (1) [facility] Work Phone: Start: 1999 HIV screen HIV screen [facility] Work Phone: Start: 1999 HIV screening HIV screen [facility] Start: 1997 Varicella vaccination Varicell a Vaccines (1 of 2 - 13+ 2-dose series) [facility] Start: 1996 Depression Monitoring Depression Mon itoring [facility] Start: 1996 Depresssion Monitoring Depresssion M onitoring [facility] Start: 1995 DTaP/Tdap/Td vaccine (1 - Tdap) DTaP/Tdap/Td vaccine (1 - Tdap) [facility] Work Phone: Start: 1994 Diabetic foot examination [facility] Start: 1994 Diabetic retinal exam Diabetic retin al exam [facility] Work Phone: Start: 1994 Glaucoma screening Diabetes: R etinopathy Screening [facility] Start: 1994 Preventive dental service Diabetes: Dental Exam [facility] Start: 1990 Pneumococcal 0-64 ye ars Vaccine (1 - PCV) Pneumococcal 0-64 years Vaccine (1 - PCV) [facility] Start: 1990 Pneumococcal 0-64 ye ars Vaccine (1 of 1 - PPSV23) Pneumococcal 0-64 years Vaccine (1 of 1 - PPSV23) [facility] Work Phone: Start: 1990 Pneumococcal 0-64 ye ars Vaccine (1 of 2 - PPSV23) Pneumococcal 0-64 years Vaccine (1 of 2 - PPSV23) [facility] Start: 1990 Pneumococcal Vaccine : Pediatrics (0 to 5 Years) and At-Risk Patients (6 to 64 Years) (1 - PCV) Pneumococcal Vaccine: Pediatrics (0 to 5 Years) and At-Risk Patients (6 to 64 Years) (1 - PCV) [facility] Start: 1990 Pneumococcal Vaccine : Pediatrics (0 to 5 Years) and At-Risk Patients (6 to 64 Years) (1 of 2 - PCV) Pneumococcal Vaccine: Pediatrics (0 to 5 Years) and At-Risk Patients (6 to 64 Years) (1 of 2 - PCV) [facility] Start: 1985 MMR Vaccines (1 of 1 - Standard series) MMR Vaccines (1 of 1 - Standard series) [facility] Start: 1985 Varicella vaccination Varicell a Vaccines (1 of 2 - 2-dose childhood series) [facility] Start: 1985 Varicella vaccine (1 of 2 - 2-dose childhood series) Varicella vaccine (1 of 2 - 2-dose childhood series) [facility] Start: 1984 Hepatitis B Vaccines (1 of 3 - 3-dose series) Hepatitis B Vaccines (1 of 3 - 3-dose series) [facility] Start: 1984 Hepatitis C screening Hepatitis C sc reen [facility] Start: 1984 HIV screening HIV Screening [facility] alth Blood glucose - POCT [facility] Work Phone: Comment on above: As Needed until disc ontinued starting 09/11/2021 4X Daily (AC & HS) u ntil discontinued starting 09/11/2021 End: 09-11-2021 Intermittent pulse oximetry Pulse Oximetry Spot Check Respiratory Care Routine One Time for 1 Occurrences starting 09/11/2021 until 09/11/2021 [facility] Work Phone: Comment on above: One Time for 1 Occur rences starting 09/11/2021 until 09/11/2021 Nasal Cannula Oxygen Nasal Cannu la Oxygen Respiratory Care Routine As Needed until discontinued starting 09/11/2021 [facility] Work Phone: Comment on above: As Needed until disc ontinued starting 09/11/2021 Nonrebreather mask oxygen Nonreb reather mask oxygen Respiratory Care Routine As Needed until discontinued starting 09/11/2021 [facility] Work Phone: Comment on above: As Needed until disc ontinued starting 09/11/2021 Oxygen therapy [[facility] Data Set] [facility] Work Phone: Comment on above: As Needed until disc ontinued starting 09/11/2021 Daily until disconti nued starting 09/11/2021 Patient referral [facility] Work Phone: Spirometry panel Incentive amalia metry Respiratory Care Routine Q1H PRN until discontinued starting 09/11/2021 [facility] Work Phone: Comment on above: Q1H PRN until discon tinued starting 09/11/2021 End: 09-11-2021 Surgical Pathology Surgical Pathology Lab Routine Once for 1 Occurrences starting 09/11/2021 until 09/11/2021 [facility] Work Phone: Comment on above: Once for 1 Occurrenc es starting 09/11/2021 until 09/11/2021 Surgical Pathology Surgical Path ology Lab Routine 09/11/2021 9:52 AM EDT [facility] Work Phone: Immunizations Immunization Date Immunization Notes Care Provider [facility] 09-18-2023 influenza virus vaccine, unspecified formulation DR LUIS EDEN DO [facility] 09-14-2022 influenza virus vaccine, unspecified formulation Devon Peterson DO Work Phone: [facility] 08-01-2021 influenza virus vaccine, unspecified formulation FRANK SMITH DO [facility] 04-22-2021 COVID-19, Moderna, P F, 100mcg/0.5mL Stewart Tokie [employer] WORKER - MATH TEACHER Work Phone: [facility] Work Phone: 03-25-2021 COVID-19, Moderna, P F, 100mcg/0.5mL Stewart Tokie [employer]OV[employer] WORKER - MATH TEACHER Work Phone: [facility] Work Phone: 09-20-2020 influenza virus vaccine, unspecified formulation FRANK SMITH DO [facility] 08-10-2017 influenza virus vaccine, unspecified formulation FRANK SMITH DO [facility] Payers Date Payer Category Payer Self-pay [id number] 2022 Medicaid HMO [facility] MEDICAID ODM [id number] 2022 Unknown [id number] 2019 Private Health Insurance [facility] COMMUNITY IRA [facility] COMMUNITY PLAN xxxxxxxxx 2019-Present [phone] [place] [address] xxxxxxxxx [id number]. [id number] 2019 Private Health Insurance [id number] [id number]. [id number] 2019 Unknown 2016 Unknown [id number] 2011 Medicaid [id number] [id number]. [id number] 2011 Private Health Insurance [id number] 1984 Unknown [id number] 2.16.840.1.443386.3.579.2. 717 1984 Unknown [id number] 2.16.840.1.532577.3.579.2. 356 1984 Unknown [id number] 2.16.840.1.938381.3.579.2. 627 1984 Unknown [id number] 2.16.840.1.786002.3.579.2. 627 1984 Unknown [id number] 2.16.840.1.327533.3.579.2. 627 1984 Unknown [id number] 2.16.840.1.652784.3.579.2. 627 1984 Unknown [id number] 2.16.840.1.047203.3.579.2. 627 1984 Unknown [id number] 2.16.840.1.402666.3.579.2. 627 1984 Unknown [id number] 2.16.840.1.359242.3.579.2. 627 1984 Unknown [id number] 2.16.840.1.458462.3.579.2. 627 1984 Unknown [id number] 2.16.840.1.765140.3.579.2. 627 1984 Unknown [id number] 2.16.840.1.165899.3.579.2. 627 1984 Unknown [id number] 2.16.840.1.314074.3.579.2. 627 1984 Unknown [id number] 2.16.840.1.143597.3.579.2. 627 1984 Unknown [id number] 2.16.840.1.049567.3.579.2. 627 1984 Unknown [id number] 2.16.840.1.343307.3.579.2. 627 1984 Unknown [id number] 2.16.840.1.614497.3.579.2. 1984 Unknown [id number] 2.16.840.1.171043.3.579.2. 7 1984 Unknown [id number] 2.840.1.231399.3.579.2. 1984 Unknown [id number] .840.1.500298.3.579.2. 7 1984 Unknown [id number] .840.1.318468.3.579.2. 1984 Unknown [id number] .840.1.970706.3.579.2. 1984 Unknown [id number] .840.1.999663.3.579.2. 1984 Unknown [id number] .840.1.302015.3.579.2. 1984 Unknown [id number] .840.1.911343.3.579.2. 1984 Unknown [id number] .840.1.157524.3.579.2. 627 Unknown [id number] 840.1.822118.3.579.2. 462 Unknown [id number] 840.1.262404.3.579.2. 462 Unknown [id number] 840.1.636817.3.579.2. 462 Unknown [id number] .840.1.039219.3.579.2. 462 Unknown [id number] 2.840.1.240546.3.579.2. 462 Unknown [id number] .840.1.029184.3.579.2. 462 Social History Date Type Detail Facility Start: 12-27-2019 End: 06-26-2024 Tobacco smoking status NHIS Never smoker [facility] Work Phone: Start: 12-27-2019 End: 09-23-2024 Alcohol intake Ex-drinker (finding) [facility] Work Phone: Start: 1985 Sex Assigned At Not on file S [facility] Work Phone: Start: 12-27-2019 End: 03-08-2021 Tobacco use and exposure [facility] Start: 01-19-2020 End: 06-11-2021 History SDOH Alcohol Frequency 1 [facility] Work Phone: Start: 01-19-2020 History SDOH Social Connections Get Together 5 [facility] Work Phone: Start: 01-19-2020 History SDOH Social Connections Membership 2 [facility] Work Phone: Start: 01-19-2020 End: 06-11-2021 History SDOH Physical Activity MPS 3 [facility] Work Phone: Start: 04-27-2022 End: 05-07-2022 Exposure to SARS-CoV-2 (event) Not sure [facility] Sex Assigned At [facility] Start: 02-26-2022 End: 02-26-2022 Tobacco smoking status NHIS Unknown if ever smoked [facility] Start: 1985 Sex Assigned At Male [facility] Start: 11-10-2022 End: 09-23-2024 History of Social function [facility] Start: 11-10-2022 End: 09-23-2024 Tobacco use panel [facility] How often to you hav e a drink containing alcohol? Never [facility] How many standard dr inks containing alcohol do you have on a typical day? Patient does not drink [facility] Start: 06-20-2010 End: 06-22-2022 Sex Male (finding) [facility] Medical Equipment Procedure Code Equipment Code Equipment Original Text Equipment Identifier Dates 1 each by In Vit ro route daily As needed. E11.9 [id number] Start: 08-13-2021 1 each by Does n ot apply route 3 times daily [id number] Start: 07-18-2021 See Instructions , Dx: E11.9 Test AC and HS, # 1 EA, 11 Refill(s), Pharmacy: [address], Diabetes mellitus type 2 in obese 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 due to type 2 diabetes... Start: 05-14-2022 See Instructions , Dx: E11.9 Test AC and HS, # 1 EA, 11 Refill(s), Pharmacy: [address], Diabetes mellitus type 2 in obese 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 due to type 2 diabetes... Start: 05-14-2022 See Instructions , Dx: E11.9 Test AC and HS, # 1 EA, 11 Refill(s), Pharmacy: [address], Diabetes mellitus type 2 in obese 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 due to type 2 diabetes... Start: 05-14-2022 See Instructions , Dx: E11.9 Test AC and HS, # 1 EA, 11 Refill(s), Pharmacy: [address], Diabetes mellitus type 2 in obese 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 due to type 2 diabetes mellitus, 180, cm, 05/14/22 9:29:00 EDT, Height, 116 Start: 05-14-2022 See Instructions , Dx: E11.9 Test AC and HS, # 1 EA, 11 Refill(s), Pharmacy: [address], Diabetes mellitus type 2 in obese 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 due to type 2 diabetes mellitus, 180, cm, 05/14/22 9:29:00 EDT, Height, 116 Start: 05-14-2022 See Instructions , Dx: E11.9 Test AC and HS, # 1 EA, 11 Refill(s), Pharmacy: [address], Diabetes mellitus type 2 in obese 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 due to type 2 diabetes mellitus, 180, cm, 05/14/22 9:29:00 EDT, Height, 116 Start: 05-14-2022 See Instructions , Dx: E11.9 Test AC and HS, # 1 EA, 11 Refill(s), Pharmacy: [address], Diabetes mellitus type 2 in obese 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 due to type 2 diabetes mellitus, 180, cm, 05/14/22 9:29:00 EDT, Height, 116 Start: 05-14-2022 See Instructions , Dx: E11.9 Test AC and HS, # 1 EA, 11 Refill(s), Pharmacy: [address], Diabetes mellitus type 2 in obese 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 due to type 2 diabetes mellitus, 180, cm, 05/14/22 9:29:00 EDT, Height, 116 Start: 05-14-2022 See Instructions , Dx: E11.9 Test AC and HS, # 1 EA, 11 Refill(s), Pharmacy: [address], Diabetes mellitus type 2 in obese 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 due to type 2 diabetes mellitus, 180, cm, 05/14/22 9:29:00 EDT, Height, 116 Start: 05-14-2022 See Instructions , Dx: E11.9 Test AC and HS, # 1 EA, 11 Refill(s), Pharmacy: [address], Diabetes mellitus type 2 in obese 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 due to type 2 diabetes mellitus, 180, cm, 05/14/22 9:29:00 EDT, Height, 116 Start: 05-14-2022 See Instructions , Dx: E11.9 Test AC and HS, # 1 EA, 11 Refill(s), Pharmacy: [address], Diabetes mellitus type 2 in obese 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 due to type 2 diabetes mellitus, 180, cm, 05/14/22 9:29:00 EDT, Height, 116 Start: 05-14-2022 See Instructions , Dx: E11.9 Test AC and HS, # 1 EA, 11 Refill(s), Pharmacy: [address], Diabetes mellitus type 2 in obese 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 due to type 2 diabetes mellitus, 180, cm, 05/14/22 9:29:00 EDT, Height, 116 Start: 05-14-2022 See Instructions , Dx: E11.9 Test AC and HS, # 1 EA, 11 Refill(s), Pharmacy: [address], Diabetes mellitus type 2 in obese 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 due to type 2 diabetes mellitus, 180, cm, 05/14/22 9:29:00 EDT, Height, 116 Start: 05-14-2022 See Instructions , Dx: E11.9 Test AC and HS, # 1 EA, 11 Refill(s), Pharmacy: [address], Diabetes mellitus type 2 in obese 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 due to type 2 diabetes mellitus, 180, cm, 05/14/22 9:29:00 EDT, Height, 116 Start: 05-14-2022 See Instructions , Dx: E11.9 Test AC and HS, # 1 EA, 11 Refill(s), Pharmacy: [address], Diabetes mellitus type 2 in obese 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 due to type 2 diabetes mellitus, 180, cm, 05/14/22 9:29:00 EDT, Height, 116 Start: 05-14-2022 See Instructions , Dx: E11.9 Test AC and HS, # 1 EA, 11 Refill(s), Pharmacy: [address], Diabetes mellitus type 2 in obese 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 due to type 2 diabetes mellitus, 180, cm, 05/14/22 9:29:00 EDT, Height, 116 Start: 05-14-2022 See Instructions , Dx: E11.9 Test AC and HS, # 1 EA, 11 Refill(s), Pharmacy: [address], Diabetes mellitus type 2 in obese 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 due to type 2 diabetes mellitus, 180, cm, 05/14/22 9:29:00 EDT, Height, 116 Start: 05-14-2022 See Instructions , Dx: E11.9 Test AC and HS, # 1 EA, 11 Refill(s), Pharmacy: [facility] Diabetes mellitus type 2 in obese 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 due to type 2 diabetes mellitus, 180, cm, 05/14/22 9:29:00 EDT, Height, 116 Start: 05-14-2022 See Instructions , Dx: E11.9 Test AC and HS, # 1 EA, 11 Refill(s), Pharmacy: [facility] Diabetes mellitus type 2 in obese 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 due to type 2 diabetes mellitus, 180, cm, 05/14/22 9:29:00 EDT, Height, 116 Start: 05-14-2022 See Instructions , Dx: E11.9 Test AC and HS, # 1 EA, 11 Refill(s), Pharmacy: [facility] [facility], Diabetes mellitus type 2 in obese 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 due to type 2 diabetes mellitus, 180, cm, 05/14/22 9:29:00 EDT, Height, 116 Start: 05-14-2022 Goals Date Patient Goal Desired Activity /State Functional Status Date Assessment Result Facility 05-23-2025 Functional status Patient Activity Ambula sylvie [facility] Work Phone: 03-20-2025 Functional Status Standard Safet y ID band on, Allergy Band on, Call device within reach, Bed in low position, Wheels locked, Upper/Half-Length side-rails up, Bedside Cart Locked, Visitor at bedside, Safety level maintained [facility] 08-10-2024 Functional Status Awake, Resting [facility] 06-29-2024 Functional Status Assistive Device None [facility] 02-27-2024 Functional Status ID band on [facility] 05-10-2023 Functional status Ambulates [facility] Work Phone: Mental Status Date Assessment Result Facility 05-23-2025 Cognitive function Voice/Name [facility] Work Phone: 03-20-2025 Mental Status Oriented x 4 [facility] 02-05-2025 Cognitive function Voice/Name [facility] Work Phone: 08-10-2024 Mental Status Oriented x 4 [facility] 06-29-2024 Mental Status Orientation Oriented x 4 [facility] 02-27-2024 Mental Status Orientation Oriented x 4 [facility] 02-07-2024 Cognitive function Voice/Name [facility] Work Phone: 05-10-2023 Cognitive function Voice/Name [facility] Work Phone: 01-11-2023 Cognitive function Voice/Name [facility] Work Phone: Clinical Notes 03-08-2021 to 05-23-2025 Note Date & Type Note Facility 05-23-2025 Radiology Diagnostic study note [facility] Imaging Services [address] [place] [address] 05/23/25 1725 MR#: [id number] Acct: [id number] Name: LEONEL LAKE Rep #:[id number] : 1985 39 From: Mahseh Olivares MD PCP: PATRICIA Briscoe Status:RE G CLI Y Location: CT CCTA w/Cont Coronary Arteries Date of Study:: 05/23/25 Chest pain Coronary Calcium Scoring: High-resolution Computed Tomographic imaging of the chest was performed on [06-15], with particular attention paid to the coronary arteries. Intravenous contrast agent was administered per protocol and images reconstructed and displayed. LEFT MAIN CORONARY ARTERY: Arises from the left coronary cusp with no significant atherosclerotic plaquing noted [] LEFT ANTERIOR DESCENDING CORONARY ARTERY: Arises from the left main coronary artery with scattered proximal and mid atherosclerotic plaquing but with no obvious stenosis noted in the coronary artery distribution which continues to the apex of the ventricle 1 diagonal branch is noted. [] LEFT CIRCUMFLEX CORONARY ARTERY: Scattered nonobstructive calcification noted with good blood flow noted throughout. The vessel continues in the AV groove branch with no high-grade stenosis. [] RIGHT CORONARY ARTERY: Dominant right coronary artery with no significant atherosclerotic plaquing. Scattered calcium noted. Vessel continues and courses and bifurcates a posterior descending artery and a posterolateral vessel. Imitations look nice thanks. THORACIC AORTA: [] PULMONARY ARTERY: [] LEFT ATRIUM/APPENDAGE: [] MITRAL VALVE: [] AORTIC VALVE: [] LEFT VENTRICLE: [] CORONARY CALCIUM SCORE: [] Calcium Scoring Interpretation: Different methods to categorize the overall amount of coronary plaque. Overall amount CAC SIS Visual of coronary plaque P1 Mild -100 <2 1-2 vessels with mild amount of plaque P2 Moderate 101-300 3-4 1-2 vessels with moderate amount, 3 vessels with mild amount of plaque P3 Severe 301-999 5-7 3 vessels with moderate amount, 1 vessel with severe amount of plaque P4 Extensive >1000 >8 2-3 vessels with severe amount of plaque Conclusion: No significant obstructive coronary disease noted. Scattered plaques noted 05/23/25 1728 Date _ Mahesh Olivares MD Cosigner Signature (if applicable): Date CC: MATH TEACHER-Emil Mata; PAULC Fabian Conde; Dr. Mahesh Olivares MD ~ Signed [facility] Work Phone: 05-23-2025 Radiology Diagnostic study note [facility] Imaging Services [address] [place], [place] [address] Limited Chest CT Cardiac Only MR#: [id number] Acct: [id number] Name: LEONEL LAKE Rep #: [id number] : 1985 M 39 From: Yazan Dailey MD PCP: PATRICIA Briscoe Status: RE G CLI Study:Limited Chest CT Cardiac Only Date of E xam: 05/23/25 Exam# [id number] Ordering Dr: Shamika Conde NP MATH TEACHER-C PROCEDURE: LIMITED CHEST CT CARDIAC ONLY 05/23/2025 REASON FOR EXAM: CP TECHNIQUE: LIMITED CHEST CT CARDIAC ONLY CONTRAST: Isovue 370 VOLUME: 77 mL intravenous One or more dose reduction techniques were used (e.g., Automated exposure control, adjustment of the mA and/or kV according to patient size, use of iterative reconstruction technique). RADIATION DOSE SUMMARY: DLP: 2016.94 mGycm COMPARISON: None. CT/Limited Chest CT Cardiac Only IMPRESSION: Diffuse fatty infiltration of the liver is noted. Limited imaging of the lungs demonstrates no acute process. No pleural effusion or pneumothorax is seen in visualized areas. No adenopathy is noted. The visualized upper abdomen demonstrates no other significant abnormality. Reading Location: [place] [address] CC: PATRICIA Mata; PATRICIA Conde ~ Oil Field Tester: Signed [facility] 03-20-2025 Hospital Discharge instructions Patient Education 03/20/2025 16:33:24 Abscess, Antibiotic Treatment Only Abscess (Antibiotic Treatment Only) An abscess (sometimes called a boil ) happens when bacteria get trapped under the skin and start to grow. Pus forms inside the abscess as the body responds to the bacteria. An abscess can happen with an insect bite, ingrown hair, blocked oil gland, pimple, cyst, or puncture wound. In the early stages, your wound may be red and tender. For this stage, you may get antibiotics. If the abscess does not get better with antibiotics, it will need to be drained with a small cut. Home care These tips will help you care for your abscess at home: Soak the wound in hot water or apply hot packs (small towel soaked in hot water) to the area for 20 minutes at a time. Do this 3 to 4 times a day. Do not cut, squeeze, or pop the boil yourself. Apply antibiotic cream or ointment to the skin 3 to 4 times a day, unless something else was prescribed. Some ointments include an antibiotic plus a pain reliever. If your doctor prescribed antibiotics, do not stop taking them until you have finished the medicine or the doctor tells you to stop. You may use an rnty-mxy-birilue pain medicine to control pain, unless another pain medicine was prescribed. If you have chronic liver or kidney disease or ever had a stomach ulcer or gastrointestinal bleeding, talk with your doctor before using these any of these. Follow-up care Follow up with your healthcare provider, or as advised. Check your wound each day for the signs of worsening infection listed below. When to seek medical advice Get prompt medical attention if any of these occur: An increase in redness or swelling Red streaks in the skin leading away from the abscess An increase in local pain or swelling Fever of 100.4 F (38 C) or higher, or as directed by your healthcare provider Pus or fluid coming from the abscess Boil returns after getting better [phone] [employer]. [address] [place] [address], [place] [address]. All rights reserved. This information is not intended as a substitute for professional medical care. Always follow your healthcare professional's instructions. Follow Up Care 03/20/2025 15:51:59 With:Dentistry Address: When:2-4 days [facility] 03-20-2025 Emergency department Discharge summary Discharge Instructions Thank you for allowing [place] to assist you with your healthcare needs. The following is important discharge information regarding your hospital visit. Diagnosis from Today's Visit Dental abscess What to Do Next Instructions from Your Care Team No qualifying data available. Post Acute Orders No qualifying data available. You Need to Schedule the Following Appointments Follow Up with Dentistry When:Within 2-4 days Allergies Seroquel naproxen penicillin I got sick predniSONE Medications Please ask your primary doctor or pharmacist before taking any other medication not listed, including over the counter drugs, herbal medications, vitamins and or supplements as they may interact with your home medications. What How Much When Why Instructions Last Dose New clindamycin (clindamycin 300 mg oral capsule) 1 cap by mouth Every 8 hours Duration: 7 Days Printed Prescription Unchanged atorvastatin (atorvastatin 20 mg oral tablet) 1 tab(s) by mouth Once a day Unchanged benztropine (benztropine 1 mg oral tablet) 1 tab(s) by mouth Once a day Unchanged bifidobacterium-lactobacillus (Probiotic 10 Ultra Strength oral capsule) 1 cap by mouth Once a day Abscess of right jaw Duration: 14 Days may substitute for generic insurance preferred probiotic. I would like him to be on this d/ t being on clindamycin. Unchanged cholecalciferol (Vitamin D3 125 mcg (5000 intl units) oral capsule) 1 cap by mouth Once a day Vitamin D deficiency Duration: 90 Days Unchanged dapagliflozin (Farxiga 10 mg oral tablet) 1 tab(s) by mouth Once a day Duration: 90 Days Unchanged DME (DME MISCellaneous) See instructions Libre3+ Sensors #2 sensors. 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 Dx: E11.9 Test AC and HS Unchanged escitalopram (Lexapro 10 mg oral tablet) 1 tab(s) by mouth Once a day Duration: 90 Days Unchanged fenofibrate (fenofibrate 145 mg oral tablet) 1 tab(s) by mouth Once a day Duration: 90 Days Unchanged fluticasone nasal (Flonase 50 mcg/ inh nasal spray) 1 spray(s) each nostril Once a day Acute sinusitis Duration: 30 Days Unchanged gabapentin (gabapentin 400 mg oral capsule) 1 cap by mouth Two (2) times a day Neuropathy Duration: 90 Days Unchanged glimepiride (glimepiride 2 mg oral tablet) See instructions Take 2 tablets (4mg) by mouth with breakfast and 1 tablet (2mg) with dinner Unchanged haloperidol (haloperidol 10 mg oral tablet) 1 tab(s) by mouth Daily at bedtime Unchanged hydrOXYzine (Vistaril 25 mg oral capsule) 1 cap by mouth Once Unchanged meloxicam (Mobic 15 mg oral tablet) 1 tab(s) by mouth Once a day Unchanged metFORMIN (MetFORMIN (Eqv-Glucophage XR) 500 mg oral tablet, EXTENDED RELEASE) 2 tab(s) by mouth Two (2) times a day Diabetes mellitus type 2 in obese 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 due to type 2 diabetes mellitus Duration: 90 Days Unchanged metoprolol (metoprolol succinate 25 mg oral TABLET extended release) 1 tab(s) by mouth Once a day Do not crush or chew (controlled release) Unchanged omeprazole (omeprazole 40 mg oral delayed release capsule) 1 cap by mouth Once a day Duration: 90 Days Unchanged risankizumab (Skyrizi) Every 4 weeks Unchanged tamsulosin (Flomax 0.4 mg oral capsule) 1 cap by mouth Once a day Kidney stone Duration: 14 Days Unchanged tiZANidine (tiZANidine 4 mg oral tablet) 1 tab(s) by mouth Every 8 hours Unchanged traMADol (traMADol 50 mg oral tablet) 1 tab(s) by mouth Every 6 hours as needed for for pain Dental abscess Duration: 14 Days Please take this list to your next doctor s visit. Bring all medications you take, including over the counter medications, herbals and other supplements with you to your doctor s visit. Patients and families are reminded to discard old lists and to update any records with all medication providers or retail pharmacies. Education Materials Abscess (Antibiotic Treatment Only) An abscess (sometimes called a boil ) happens when bacteria get trapped under the skin and start to grow. Pus forms inside the abscess as the body responds to the bacteria. An abscess can happen with an insect bite, ingrown hair, blocked oil gland, pimple, cyst, or puncture wound. In the early stages, your wound may be red and tender. For this stage, you may get antibiotics. If the abscess does not get better with antibiotics, it will need to be drained with a small cut. Home care These tips will help you care for your abscess at home: Soak the wound in hot water or apply hot packs (small towel soaked in hot water) to the area for 20 minutes at a time. Do this 3 to 4 times a day. Do not cut, squeeze, or pop the boil yourself. Apply antibiotic cream or ointment to the skin 3 to 4 times a day, unless something else was prescribed. Some ointments include an antibiotic plus a pain reliever. If your doctor prescribed antibiotics, do not stop taking them until you have finished the medicine or the doctor tells you to stop. You may use an sxui-nrt-bhikulk pain medicine to control pain, unless another pain medicine was prescribed. If you have chronic liver or kidney disease or ever had a stomach ulcer or gastrointestinal bleeding, talk with your doctor before using these any of these. Follow-up care Follow up with your healthcare provider, or as advised. Check your wound each day for the signs of worsening infection listed below. When to seek medical advice Get prompt medical attention if any of these occur: An increase in redness or swelling Red streaks in the skin leading away from the abscess An increase in local pain or swelling Fever of 100.4 F (38 C) or higher, or as directed by your healthcare provider Pus or fluid coming from the abscess Boil returns after getting better [phone] [employer]. [address] [place] [address]. All rights reserved. This information is not intended as a substitute for professional medical care. Always follow your healthcare professional's instructions. Additional Information VACCINATE! IT SAVES LIVES! Members of the community who have not yet received the COVID-19 vaccine and would like to receive it can visit one of [facility] vaccine clinics. There are many vaccine clinic locations within the [facility]. For locations and available times, please visit www.gettheshot.coronavirus.[place].gov /. It is important to note that some COVID mobile vaccine clinics are held outdoors and may be canceled in rainy or stormy conditions. To learn more about pediatric vaccinations (ages 5-11), we invite you to visit the [facility] webpage. [email or web address] -[email or web address]-Questions.[email or web address] To learn more about the COVID-19 vaccine, we invite you to visit the CDC website for a list of frequently asked questions. https://www.cdc.gov/coronavirus/201 9-ncov/vaccines/faq.html [facility] [place] [facility] Patient Portal Access Instructions: Stay connected with your healthcare team and access your personal medical information anytime with the [email or web address] Patient Portal. If you would like a full copy of your medical records please contact the [facility] Medical Records Department Wednesday through Wednesday between 8a.m. and 4:30p.m. Please follow the directions below to access the portal: 1.Access the email account you provided upon registration to the [facility].2.Look for an invitation email from [facility].3.Open the email and access the invitation link: Accept Invitation to [email or web address].Fill in the required truong to create your account. Sign into [email or web address] with your username and password that you created in the above steps to stay up to date. You can then view a summary of results, a summary of your visits, and the ability to download your summaries to your computer or send the information securely to a physician. Remember that your healthcare information is confidential, so carefully consider who you will allow to register on the [facility] Patient Portal for access to your information. You can also access the [facility] Patient Portal on the [email or web address]. Simply click on Health Records under Health Data and then click on the MeetMe logo. HOW TO SAFELY DISPOSE OF PRESCRIPTION MEDICATIONS Please use one of the following methods to safely dispose of your unused medications. 1.Use a drug disposal kit: the drug disposal pouch allows you to safely discard your old and unused drugs. Ask your nurse to give you one when you are discharged.2.Visit a local take-back location: Many local pharmacies and police departments have programs that collect old and unwanted prescription drugs. Call your local pharmacy or go to http://Pristine.io.ColonaryConcepts/2R2Ii5l to find one close to you.3.Make use of household items: Use cat litter or old coffee grounds to dispose medications if other options are not available. Mix your drugs with these household products, seal them in an airtight container and throw it into the garbage. Call [facility]: [phone] to be sure your drugs can be disposed of in this way. Some medicines may require a different approach.4.Never flush your medications down the toilet. IF YOU HAVE BEEN PRESCRIBED AN OPIOIDS FOR PAIN If you have been prescribed an opioid (such as hydrocodone, oxycodone or morphine), it is critical to understand the possible side effects and risks of opioid pain medications. Even when taken as directed, opioids can have several side effects including: Tolerance, meaning you might need to take more of a medication for the same pain relief. Nausea, vomiting and/or constipation. Sleepiness, dizziness, dry mouth, confusion, depression or itching. Physical dependence, meaning you have withdrawal symptoms when a medication is stopped ? this can develop within a few days. KNOW YOUR RESPONSIBILITIES It is important to know exactly how much and how often to take the opioid pain medications you are prescribed. Never take opioids in higher amounts or more often than prescribed. Do not combine opioids with alcohol or other drugs that cause drowsiness, such as benzodiazepines, also known as benzos, including diazepam and alprazolam, muscle relaxants or sleep aids. Never sell or share prescription opioids. This is illegal. Store opioids in a secure place and out of reach of others (including children, family, friends and visitors). The last page(s) of this document has been signed and retained as a CHART COPY Signatures Patient Education Materials Abscess, Antibiotic Treatment Only Medication Leaflets My discharge plan and instructions have been reviewed and explained to me and I,LEONEL LAKE understand my current condition and have read and understand these discharge instructions. I have received a written copy of the plan/instructions. If I have questions, I am aware that I should contact my doctor. 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 Signature: ____ Date/Time: Relationship to Patient: __ Witness Name/Signature: Date/Time: [facility] 02-05-2025 Consult note [facility] 02-05-2025 Consult note Note Date/Time February 05, 2025 6:34am [facility] Medical Records Department [address] [place] [address] Pre-Anesthesia Evaluation 02/05/25 0625 MR#: [id number] Acct: [id number] Name: LEONEL LAKE Rep #:[id number] : 1985 39 From: Jimmie Wen MD PCP: Wanda Mata, MATH TEACHER-C Status:RE G SDC Y Race: C Location: [place] [address] ASA Classification* ASA Classification ASA Classification: 3 Assessment & Plan Anesthesia* Anesthesia Assessment Anesthesia Assessment: Discussed sedation and/or anesthesia options, risks, benefits, and alternatives with patient/parents/legal guardian/POA. Questions invited. The patient/parents/legal guardian/POA seems to understand and agrees to proceedwith anesthesia plan. Reviewed the physical assessment, medical history, allergy history and patient home medications list prior to surgery/procedure/anesthetic and documented any changes. Performed airway and anesthesia risk assessments. Anesthesia Type Anesthesia Type: MAC History Source History Obtained from:: Patient and Chart Anesthesia Focused Assessment* Temperature: 96.5 F Pulse Rate: 57 Blood Pressure: 114/77 Respiratory Rate: 18 Pulse Ox: 99 Oxygen Delivery Method: Room Air Airway Assessment Mouth opens: 2 cm Mallampati Score: IV Teeth Condition: Missing (Left lower molars are missing. Rest are tight.) and Partial (Upper partials out.) Neck Range of motion (ROM): Limited ROM (Decreased extension secondary to pain.) Focused Labs Anesthesia Preop lab: CBC WBC 5.1 K/mm3 (4.4-11.0) 02/26/22 14:52 02/26/22 RBC 5.34 M/mm3 (4.6-6.2) 02/26/22 14:52 02/26/22 Hgb 15.8 g/dL (13.0-16.5) 02/26/22 14:52 02/26/22 Hct 44.2 % (40-54) 02/26/22 14:52 02/26/22 Plt Count 222 K/mm3 (150-450) 02/26/22 14:52 02/26/22 CHEMISTRY Potassium 3.8 mmol/L (3.5-5.1) 02/26/22 14:52 02/26/22 Sodium 134 mmol/L (136-145) L 02/26/22 14:52 02/26/22 BUN 5 mg/dL (7-18) L 02/26/22 14:52 02/26/22 Creatinine 0.88 mg/dL (0.70-1.30) 02/26/22 14:52 02/26/22 Glucose 274 mg/dL (74-106) H 02/26/22 14:52 02/26/22 POC Glucose 119 mg/dL (74-106) H 09/11/24 09:12 09/11/24 TSH 2.07 uIU/mL (0.358-3.74) 04/25/19 12:14 COAG Pre-Assessment Diagnosis/Proposed Procedure Planned Operative Procedure(s): Left-sided cervical radiofrequency ablation C4-C5-C6 and C7 Anesthesia History Anesthesia History - electric meter tester: Anesthesia History - electric meter tester Hx Hospitalization No 05/02/24 13:57 Any Problems With Anesthesia No 05/02/24 13:57 Cholinesterase deficiency No 05/02/24 13:57 You/Your Family Experience No 05/02/24 13:57 fever (hyperthermia) with Relationship Recent Exposure to Contagious No 02/05/25 05:59 Disease Does patient have nerve No 05/02/24 13:57 stimulator Patient instructed to have device shut off --Does patient have Pacemaker No 02/05/25 05:59 or ICD? When Was Last Pacemaker Check QUESTION #4 FULL TEXT: You/Your Family Experience fever (hyperthermia) with Anesthesia Last Oral Intake Last Oral intake: Last Oral Intake NPO since 23:00 02/05/25 05:59 Meds taken in AM with sips of water? Meds patient instructed to take am of surgery PONV PONV - electric meter tester: PONV - electric meter tester Female HX of Motion Sickness HX of N/V After Surgery Non-Smoker Duration of Surgery greater than 60 minutes Number of Risk Factors PONV Score Height & Weight Height & Weight: Anesthesia: Height & Weight Height 5 ft 1 in 02/05/25 05:59 Weight: 117 kg 02/05/25 05:59 Body Mass Index (BMI) 48.7 02/05/25 05:59 Respiratory Assessment Respiratory Assessment - electric meter tester: Respiratory Tract Infection Hx - electric meter tester Hx Respiratory Tract Infection No 05/02/24 13:57 STOP Sleep Apnea STOP Sleep Apnea - electric meter tester: STOP Sleep Apnea - electric meter tester Hx Hypertension No 05/02/24 13:57 Hx Sleep Apnea No 05/02/24 13:57 CPAP BIPAP Do you snore loudly (louder than talking or can be heard Do you often feel tired/ fatigued/ sleepy during daytime? Has anyone observed you stop breathing during sleep? STOP Results QUESTION #5 FULL TEXT : Do you snore loudly (louder than talking or can be heard through closed doors)? Tobacco Use History Tobacco Use History - electric meter tester: Tobacco Use History - electric meter tester Tobacco Use Smoking Status Never smoker 05/02/24 13:57 Hx Tobacco Use No 05/02/24 13:57 Years Smoking Packs Smoked per Day Smoking Cessation Date was within the last 15 years Hx Smoking Cessation Date Hx Smoking Cessation Counseling Hematologic Medial History Hematologic Hx - electric meter tester: Hematologic Medical Hx - data analytics developer Hx of Blood Transfusion Hx of Transfusion in last 3 Months Date of Last Transfusion (if within last 3 months) Ever experience any problems with transfusion(s)? Specify any problems Hx of Preganancy in last 3 Months Nurse Filling Out Transfusion & Questions: Date: Time: Patient unable to answer at this time (ie. 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 due to type 2 diabetes mellitus Diabetes mellitus type 2 in obese Chronic back pain greater than 3 months duration Body mass index [BMI] 34.0-34.9, adult Home Medications ?Medication ?Instructions ?Recorded ?Last Taken ?Type hydroxyzine pamoate 25 mg capsule 25 mg PO BID 02/04/25 History benztropine 1 mg tablet 1 mg PO DAILY 02/10/2202/04 History escitalopram oxalate 10 mg tablet 10 mg PO DAILY 02/1002/04/25 History (Lexapro) fenofibrate nanocrystallized 145 145 mg PO DAILY 02/1002/04/25 History mg tablet fluticasone propionate 50 1 spray intranasal DAILY 02/04/25 History mcg/actuation nasal spray,suspension glimepiride 2 mg tablet 2 mg PO DAILY 02/10/2202/04 History metformin 1,000 mg tablet 2,000 mg PO BID 02/10/22 History dapagliflozin propanediol 5 mg 5 mg PO DAILY 02/07/24 02/04/25 History tablet (Farxiga) haloperidol 10 mg tablet 10 mg PO DAILY 02/07/2401/20 History gabapentin 400 mg capsule 400 mg PO BID 09/11/2402/04 History Allergy/AdvReac Type Severity Reaction Status Date / Time naproxen Allergy Intermediate Other Verified 02/05/25 05:54 Penicillins Allergy Hives Verified 02/05/25 05:54 prednisone Allergy Hives Verified 02/05/25 05:54 quetiapine fumarate (From Allergy Other Verified 02/05/25 05:54 Seroquel) Surgical History (Updated 02/05/25 @ 06:[address] Jimmie Wen MD) History of radiofrequency ablation (RFA) of nerve of cervical spine History of cholecystectomy Social History Smoking Status: Never smoker Review of Systems (Anesthesia) ROS Narrative System reviewed and no additional complaints, except as documented. 02/05/25633 <Electronically signed by Jimmie salguero MD> Date _ Jimmie Wen MD Cosigner Signature: Date CC: ~ Signed [facility] Work Phone: [phone] 717-872003-17-2025 Procedure note [facility] Medical Records Department [address] [place] [id number] Operative Report 02/05/25 0757 MR#: [id number] Acct: [id number] Name: LEONEL LAKE Rep #:[id number] : 1985 39 From: Marc Aquino MD PCP: Wanda Mata, MATH TEACHER-C Status:[facility] Location: [place] [address] Operative Report (Standard) Operative Information Date of Procedure: 02/05/25 Pre-Operative Diagnosis: 1 Post-Operative Diagnosis: 1 Surgery/Procedure Performed: 1 operations recruiter: No Type of Anesthesia: Local MAC RN Documented Start/Stop Times: Operation Date: 02/05/25 07:30 Case Time Into Pre-Op 02/05/25 05:45 Out of Pre-Op 02/05/25 07:29 Anesthesia Start 02/05/25 07:30 Into Room 02/05/25 07:30 Procedure Start 02/05/25 07:45 Procedure End 02/05/25 07:54 Procedure Start Time: :58 Procedure Stop Time: :58 Select all DRAINS/GRAFTS/IMPLANTS that apply: None Estimated Blood Loss: 1 Specimen collected: No Description of surgery: PREOPERATIVE DIAGNOSIS: Cervical spondylosis, cervical degenerative disc disease, cervical facet arthropathy POSTOPERATIVE DIAGNOSIS: Cervical spondylosis, cervical degenerative disc disease, cervical facet arthropathy PROCEDURE PERFORMED: Left-sided radiofrequency ablation of the medial branch at C4, C5, C6, and C7. ANESTHESIA: MAC. BLOOD LOSS: Minimal. COMPLICATIONS: None. DESCRIPTION OF PROCEDURE: History and physical of today was reviewed. Risks and benefits of the procedure were explained. The patient understood and agreedto proceed. Informed consent was obtained. IV inserted per routine protocol. The patient was taken to the operating room and placed in the proneposition with a pillow positioned underneath the chest. The neck area was prepped and draped in a sterile fashion using iodine x3. Under fluoroscopy guidance on an AP view, the C4 through C7 vertebral bodies were visualized. The skin and subcutaneous tissue was anesthetized with approximately 10 mLof 1% lidocaine using a 25-gauge regular needle. Under direct visualization on fluoroscopy on alateral view, using a 21-gauge 10-cm with a 10-mm curved active-tip radiofrequency ablation needle, the needle was passed through the skin. The tipof the needle was maneuvered and directed towards the epiphyseal junction of each corresponding vertebra, starting on the left C4, ending on the left C7, passing through the C5 and C6. Once the tip of the needle was at the vicinity of the medial branch and at the middle of the trapezoid on the lateral view, thestylette of each needle was then removed. After negative aspiration of blood orCSF and confirmation on AP, oblique as well as lateral view, radiofrequency ablation probe was then inserted at each level. Impedance was then recorded at C4 to be 339 ohm, at C5 to be 257 ohm, at C6 to be 260 ohm, and at C7 to be 272 ohm. Motor-evoked potential wasthen initiated to 1.5 volt without any motor response to each corresponding level or the left arm. The probe was then removed intact and a total of 4 mL of preservative-free 1% lidocaine was injected in divided doses between those four levels after negativeaspiration of blood or CSF. After repeated confirmation, the radiofrequency ablation probe was then inserted and after repeated confirmation on AP, oblique as well as lateral view, radiofrequency ablation was then initiated to approximately 80 degree Celsius for 60 second at each level. Once concluded, the probe was then removed intact. A total of 4 mL of preservative- free 0.25% Marcaine with 40 mg of Depo-Medrol was injected in divided doses between those four levels. The needles were then removed intact. The patient experienced no sign or symptoms of intrathecal or intravascular injection. The patient experienced no paresthesia. The procedure was completed without any apparent difficulty or any complications. The patient appearedto tolerate it well. Sensory as well as motor exam was unchanged from prior to the procedure. ASSESSMENT AND PLAN: This is a 39-year-old male with cervical spondylosis, cervical degenerative discdisease, cervical facet arthropathy status post left-sided cervical radiofrequency ablation of the medial branch C4-C7,patient will continue his current medications, patient will follow up in approximately 2 weeks for r eevaluation. Surgical Findings: 0 Complications Complications: No Admit VTE Documentation VTE Present on Admission: No VTE Pharm Prophylaxis ordered?: No 02/05/25 0759 Cosigner Signature (if applicable): CC: PATRICIA Mata; Dr. Marc Aquino MD~ Signed [facility]03-17-2025 Consult note [facility] Medical Records Department [address] [place] [address] Pre-Anesthesia Evaluation 02/05/25 0625 MR#: [id number] Acct: [id number] Name: LEONEL LAKE Rep #:[id number] 16 : 1985 39 From: Jimmie Wen MD PCP: Wanda Mata, MATH TEACHER-C Status:RE G SDC Y Race: C Location: [place] [address]- ASA Classification* ASA Classification ASA Classification: 3 Assessment & Plan Anesthesia* Anesthesia Assessment Anesthesia Assessment: Discussed sedation and/or anesthesia options, risks, benefits, and alternatives with patient/parents/legal guardian/POA. Questions invited. The patient/parents/legal guardian/POA seems to understand and agrees to proceedwith anesthesia plan. Reviewed the physical assessment, medical history, allergy history and patient home medications list prior to surgery/procedure/anesthetic and documented any changes. Performed airway and anesthesia risk assessments. Anesthesia Type Anesthesia Type: MAC History Source History Obtained from:: Patient and Chart Anesthesia Focused Assessment* Temperature: 96.5 F Pulse Rate: 57 Blood Pressure: 114/77 Respiratory Rate: 18 Pulse Ox: 99 Oxygen Delivery Method: Room Air Airway Assessment Mouth opens: 2 cm Mallampati Score: IV Teeth Condition: Missing (Left lower molars are missing. Rest are tight.) and Partial (Upper partials out.) Neck Range of motion (ROM): Limited ROM (Decreased extension secondary to pain.) Focused Labs Anesthesia Preop lab: CBC WBC 5.1 K/mm3 (4.4-11.0) 02/26/22 14:52 02/26/22 RBC 5.34 M/mm3 (4.6-6.2) 02/26/22 14:52 02/26/22 Hgb 15.8 g/dL (13.0-16.5) 02/26/22 14:52 02/26/22 Hct 44.2 % (40-54) 02/26/22 14:52 02/26/22 Plt Count 222 K/mm3 (150-450) 02/26/22 14:52 02/26/22 CHEMISTRY Potassium 3.8 mmol/L (3.5-5.1) 02/26/22 14:52 02/26/22 Sodium 134 mmol/L (136-145) L 02/26/22 14:52 02/26/22 BUN 5 mg/dL (7-18) L 02/26/22 14:52 02/26/22 Creatinine 0.88 mg/dL (0.70-1.30) 02/26/22 14:52 02/26/22 Glucose 274 mg/dL (74-106) H 02/26/22 14:52 02/26/22 POC Glucose 119 mg/dL (74-106) H 09/11/24 09:12 09/11/24 TSH 2.07 uIU/mL (0.358-3.74) 04/25/19 12:14 COAG Pre-Assessment Diagnosis/Proposed Procedure Planned Operative Procedure(s): Left-sided cervical radiofrequency ablation C4-C5-C6 and C7 Anesthesia History Anesthesia History - electric meter tester: Anesthesia History - electric meter tester Hx Hospitalization No 05/02/24 13:57 Any Problems With Anesthesia No 05/02/24 13:57 Cholinesterase deficiency No 05/02/24 13:57 You/Your Family Experience No 05/02/24 13:57 fever (hyperthermia) with Relationship Recent Exposure to Contagious No 02/05/25 05:59 Disease Does patient have nerve No 05/02/24 13:57 stimulator Patient instructed to have device shut off --Does patient have Pacemaker No 02/05/25 05:59 or ICD? When Was Last Pacemaker Check QUESTION #4 FULL TEXT: You/Your Family Experience fever (hyperthermia) with Anesthesia Last Oral Intake Last Oral intake: Last Oral Intake NPO since 23:00 02/05/25 05:59 Meds taken in AM with sips of water? Meds patient instructed to take am of surgery PONV PONV - electric meter tester: PONV - electric meter tester Female HX of Motion Sickness HX of N/V After Surgery Non-Smoker Duration of Surgery greater than 60 minutes Number of Risk Factors PONV Score Height & Weight Height & Weight: Anesthesia: Height & Weight Height 5 ft 1 in 02/05/25 05:59 Weight: 117 kg 02/05/25 05:59 Body Mass Index (BMI) 48.7 02/05/25 05:59 Respiratory Assessment Respiratory Assessment - electric meter tester: Respiratory Tract Infection Hx - electric meter tester Hx Respiratory Tract Infection No 05/02/24 13:57 STOP Sleep Apnea STOP Sleep Apnea - electric meter tester: STOP Sleep Apnea - electric meter tester Hx Hypertension No 05/02/24 13:57 Hx Sleep Apnea No 05/02/24 13:57 CPAP BIPAP Do you snore loudly (louder than talking or can be heard Do you often feel tired/ fatigued/ sleepy during daytime? Has anyone observed you stop breathing during sleep? STOP Results QUESTION #5 FULL TEXT : Do you snore loudly (louder than talking or can be heard through closeddoors)? Tobacco Use History Tobacco Use History - electric meter tester: Tobacco Use History - electric meter tester Tobacco Use Smoking Status Never smoker 05/02/24 13:57 Hx Tobacco Use No 05/02/24 13:57 Years Smoking Packs Smoked per Day Smoking Cessation Date was within the last 15 years Hx Smoking Cessation Date Hx Smoking Cessation Counseling Hematologic Medial History Hematologic Hx - electric meter tester: Hematologic Medical Hx - data analytics developer Hx of Blood Transfusion Hx of Transfusion in last 3 Months Date of Last Transfusion (if within last 3 months) Ever experience any problems with transfusion(s)? Specify any problems Hx of Preganancy in last 3 Months Nurse Filling Out Transfusion & Questions: Date: Time: Patient unable to answer at this time (ie. confused, unrespo /Reproduction History /Reproductive History - electric meter tester: /Reproductive Hx- electric meter tester Hx Now Gestational Age (in weeks): EDC: Hx Hx Para Hx Section [facility] Medical History Schizophrenia Bipolar disorder Depression Anxiety Gastric reflux Non-smoker Leg muscle spasm Family history of fatty liver History of Crohn's disease 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 due to type 2 diabetes mellitus Diabetes mellitus type 2 in obese Chronic back pain greater than 3 months duration Body mass index [BMI] 34.0-34.9, adult Home Medications ?Medication ?Instructions ?Recorded ?Last Taken ?Type hydroxyzine pamoate 25 mg capsule 25 mg PO BID 6 02/04/25 History benztropine 1 mg tablet 1 mg PO DAILY 02/10/2202/04 History escitalopram oxalate 10 mg tablet 10 mg PO DAILY 02/1002/04/25 History (Lexapro) fenofibrate nanocrystallized 145 145 mg PO DAILY 02/1002/04/25 History mg tablet fluticasone propionate 50 1 spray intranasal DAILY 02/04/25 History mcg/actuation nasal spray,suspension glimepiride 2 mg tablet 2 mg PO DAILY 02/10/2202/04 History metformin 1,000 mg tablet 2,000 mg PO BID 02/10/22 History dapagliflozin propanediol 5 mg 5 mg PO DAILY 02/07/24 02/04/25 History tablet (Farxiga) haloperidol 10 mg tablet 10 mg PO DAILY 02/07/2401/20 History gabapentin 400 mg capsule 400 mg PO BID 09/11/2402/04 History Allergy/AdvReac Type Severity Reaction Status Date / Time naproxen Allergy Intermediate Other Verified 02/05/25 05:54 Penicillins Allergy Hives Verified 02/05/25 05:54 prednisone Allergy Hives Verified 02/05/25 05:54 quetiapine fumarate (From Allergy Other Verified 02/05/25 05:54 Seroquel) Surgical History (Updated 02/05/25 @ 06:[address] Jimmie Wen MD) History of radiofrequency ablation (RFA) of nerve of cervical spine History of cholecystectomy Social History Smoking Status: Never smoker Review of Systems (Anesthesia) ROS Narrative System reviewed and no additional complaints, except as documented. 02/05/25633 noemy SPARKS> Date _ Jimmie Wen MD Cosigner Signature: Date CC: ~ Signed [facility]11-02-2024 Hospital Discharge instructions* Discharge Instructions* Ky Hurtado MD - 09/23/2024 11:09 AM EDT Use the splint for the next 5 days. Schedule an appointment with your physician to reassess. Returnto the emergency department if symptoms worsen. * Attachments The following attachments cannot be sent through Care Everywhere. * Muscle and Bone Pain Discharge Instructions (K[place]i) documented in this [facility]11-02-2024 Emergency department Note* Ky Hurtado MD - 09/23/2024 10:30 AM EDT EMERGENCY DEPARTMENT ENCOUNTER Pt Name: Leonel Lake Birthdate 1985 Date of evaluation: 09/23/2024 ED Provider: Ky Hurtado MD CHIEF COMPLAINT Chief Complaint Patient presents with Hand Pain Denies injury HISTORY OF PRESENT ILLNESS I wore appropriate PPE for the entirety of this encounter. HPI Leonel Lake is a 38 y.o. male who presents to the emergency department complaining of pain to his left long finger. He states that about a month ago he awoke with pain to his left long finger PIP joint. He does not recall any injury. There is no strain. He does not know why he is having painin it. He complains of swelling to the joint. He has a history of mco-pajfszu-kikksnhxu diabetes. He has schizophrenia. There is no history of gout or other inflammatory arthritis. He is right-hand dominant. Nursing Notes were reviewed. Limitations to history: None Outside historians: None REVIEW OF SYSTEMS Review of Systems Constitutional: Negative for chills, fatigue and fever. Musculoskeletal: Positive for arthralgias and joint swelling. Negative for myalgias. Skin: Negative for rash and wound. Neurological: Negative for weakness and numbness. Hematological: Does not bruise/bleed easily. PAST MEDICAL HISTORY Past Medical History: Diagnosis Date Bipolar 1 disorder ([facility]) 2007 MsMarlon, BUTTON TACKER, [place]- disabled Depression Gastritis [address] Dunbar Psoriasis 1999 Dr. Rabago Schizophrenia ([facility]) 2007 Type 2 diabetes mellitus ([facility]) 12/2019 SURGICAL HISTORY Past Surgical History: Procedure Laterality Date CHOLECYSTECTOMY 09/11/2021 Dr. Doran COLONOSCOPY 2013 [place] TONSILLECTOMY (HISTORICAL) UPPER GASTROINTESTINAL ENDOSCOPY 2013 Dr Dunbar CURRENT MEDICATIONS Previous Medications ATORVASTATIN (LIPITOR) 20 MG TABLET 20 mg. BENZONATATE (TESSALON) 100 MG CAPSULE Take 100 mg by mouth 3 times daily as needed for cough. BENZTROPINE (COGENTIN) 2 MG TABLET CHOLECALCIFEROL (VITAMIN D-3) 125 MCG (5000 UT) CAPSULE Take 125 mcg by mouth daily. CLINDAMYCIN (CLEOCIN) 300 MG CAPSULE take 1 capsule by mouth three times a day for 10 days (TAKE WITH A PROBIOTIC) CONTINUOUS GLUCOSE SENSOR (FREESTYLE GOGO 2 SENSOR) [facility] apply 1 SENSOR TO BACK OF ARM ONCE EVERY 14 DAYS TO MONITOR GLUCOSE DAPAGLIFLOZIN (FARXIGA) 5 MG TABLET Take by mouth. ESCITALOPRAM (LEXAPRO) 10 MG TABLET 10 mg. ETANERCEPT (ENBREL) 50 MG/ML INJECTION Inject 50 mg under the skin. FARXIGA 10 MG TABLET Take 10 mg by mouth daily. FENOFIBRATE (TRICOR) 145 MG TABLET Take 145 mg by mouth daily. FLUTICASONE (FLONASE ALLERGY RELIEF) 50 MCG/ACT NASAL SPRAY Dose = 1 spray(s), Nostril, each, qDay,# 16 gram(s), 11 Refill(s), Pharmacy: [facility] #[id number], Acute sinusitis, 177.8, cm, 04/05/24 14:15:00 EDT, Height, kg, 04/05/24 14:16:00 EDT, Dosing Weight GABAPENTIN (NEURONTIN) 400 MG CAPSULE 400 mg. GLIMEPIRIDE (AMARYL) 2 MG TABLET See Instructions, Take 2 tablets (4mg) by mouth with breakfast and1 tablet (2mg) with dinner, # 90 tab(s), 3 Refill(s), Pharmacy: [facility] [place], 179.6, cm, 04/13/24 10:38:00 EDT, Height, kg, 04/13/24 10:38:00 EDT, Dosing Weight HALOPERIDOL DECANOATE (HALDOL DECANOATE) 100 MG/ML INJECTION Inject 125 mg into the shoulder, thigh, or buttocks every 30 (thirty) days. HYDROXYZINE PAMOATE (VISTARIL) 50 MG CAPSULE take 1 capsule by mouth twice a day if needed METFORMIN (GLUCOPHAGE) 500 MG TABLET Take by mouth. METOPROLOL SUCCINATE XL (TOPROL-XL) 25 MG 24 HR TABLET Take 25 mg by mouth. MOBIC 15 MG TABLET 15 mg. OMEPRAZOLE (PRILOSEC) [address] CAPSULE Take 40 mg by mouth daily. SKYRIZI PEN 150 MG/ML SOLUTION AUTO-INJECTOR TIZANIDINE (ZANAFLEX) 4 MG TABLET 4 mg. ALLERGIES Penicillins, Prednisone, and Seroquel [quetiapine] FAMILY HISTORY Family History Problem Relation Name Age of Onset Asthma Mother Stewart No Known Problems Father not close Arthritis Mother Stewart No Known Problems Brother Corey No Known Problems Paternal Grandmother Hypotension Maternal Grandfather Stroke Maternal Grandfather Cancer Maternal Grandmother No Known Problems Paternal Grandfather SOCIAL HISTORY Social History Socioeconomic History Marital status: Single Tobacco Use Smoking status: Never Smokeless tobacco: Never Substance and Sexual Activity Alcohol use: Not Currently Drug use: Never Social History Narrative Single, lives with Mother, Stewart. No children. NS or ETOH use. Disabled since 2007 due to mental health ds Social Drivers of Health Financial Resource Strain: Medium Risk (06/11/2021) Received from [facility] Overall Financial Resource Strain (CARDIA) Difficulty of Paying Living Expenses: Somewhat hard Food Insecurity: No Food Insecurity (06/11/2021) Received from [facility] Hunger Vital Sign Worried About Running Out of Food in the Last Year: Never true Ran Out of Food in the Last Year: Never true Transportation Needs: No Transportation Needs (01/19/2020) Received from [facility] PRAPARE - Transportation Lack of Transportation (Medical): No Lack of Transportation (Non-Medical): No Physical Activity: Insufficiently Active (01/19/2020) Received from [facility] Exercise Vital Sign Days of Exercise per Week: 1 day Minutes of Exercise per Session: 30 min Stress: Stress Concern Present (01/19/2020) Received from [facility] [place] [facility] [employer] [facility] - Occupational Stress Questionnaire Feeling of Stress : Very much Social Connections: Unknown (01/19/2020) Received from [facility] Social Connection and Isolation Panel [NHANES] Frequency of Social Gatherings with Friends and Family: More than three times a week Attends Anglican Services: Never Active Member of Clubs or Organizations: No Attends Club or Organization Meetings: Never SCREENINGS Clear Coma Scale Best Eye Response: Spontaneous Best Verbal Response: Oriented Best Motor Response: Follows commands Clear Coma Scale Score: 15 PHYSICAL EXAM ED Triage Vitals [09/23/24 1035] Temp Heart Rate Resp BP 36.9 C (98.5 F) 78 16 -- SpO2 Temp Source Heart Rate Source Patient Position (!) 1 % Oral Monitor Sitting BP Location FiO2 (%) Right arm -- Physical Exam Vitals and nursing note reviewed. Constitutional: Appearance: Normal appearance. Comments: The patient is a middle-age male found lying on a cart. He is alert and oriented. He is afebrile. He is in no acute distress. HENT: Head: Normocephalic. Musculoskeletal: General: Swelling and tenderness present. No deformity or signs of injury. Comments: The patient has edema to the left long finger PIP joint dorsally. There is no abrasion, laceration, ecchymosis noted. The patient has full flexion as well as extension at the left long finger MCP, PIP, DIP joint. He describes normal sensation. Capillary refill is less than 2 seconds. Skin: General: Skin is warm. Capillary Refill: Capillary refill takes less than 2 seconds. Coloration: Skin is not pale. Findings: No erythema or rash. Neurological: Mental Status: He is alert and oriented to person, place, and time. Sensory: No sensory deficit. Psychiatric: Behavior: Behavior normal. DIAGNOSTIC RESULTS RADIOLOGY (Per Emergency Physician): Interpretation per the Radiologist below, if available at the time of this note: XR hand 3+ views left Final Result No acute osseous abnormality left hand. Report Dictated on Electronically Signed By: Davin Cunningham MD Electronically Signed Date/Time: 09/23/2024 10:58 AM EDT LABS: Labs Reviewed - No data to display All other labs were within normal range or not returned as of this dictation. EMERGENCY DEPARTMENT COURSE and DIFFERENTIAL DIAGNOSIS/MDM: Vitals: Vitals: 09/23/24 1035 Pulse: 78 Resp: 16 Temp: 36.9 C (98.5 F) TempSrc: Oral SpO2: (!) 1% Weight: 113 kg (250 lb) Height: 1.778 m (5' 10) Medications Administered in the ED: Medications - No data to display Colt Hurtado MD am the fare register repairer of record. PROCEDURES: Unless otherwise noted below, none Procedures Differential Diagnosis Considerations: Differential diagnosis includes occult fracture, inflammatory arthritis. The patient has had the symptoms for a 1 month period of time. I do not believe that it represents an infectious arthritis. The joint itself is not warm to touch. There is no discoloration. ED testing and evaluation will be obtained to help differentiate these diagnostic possibilities anddetermine the most likely cause. Sources of History: I evaluated other historical sources including previous outpatient records and admission records. ED Course: In the emergency department I initially evaluated the patient with a history and physical examination in order to determine diagnostic testing and therapeutic care. On the basis of this history and physical examination left hand x-ray will be obtained. Reassessment: Left hand x-ray demonstrates no abnormality seen, especially in the area of the left long finger PIP joint. The patient is treated with a finger splint. Splint: I personally supervised and inspected the finger splint. The extremity is appropriately immobilizedfor stabilization. Patient neurovascularly intact before and after the splint application. Consideration of Admission/Observation: I considered admission for this patient, however, at this time the patient appears to be stable. I do not believe that the patient would benefit from admission at this time. I believe the patient canfollow-up with the primary care physician. The patient is advised to return to the emergency department if symptoms change or worsen where admission may need to be considered at a another time. Independent Interpretation of Tests: I independently evaluated the results of the patient's diagnostic testing in the context of the patient's presentation. Diagnostic Tests Considered but not Performed: I considered ordering a complete blood count. However, I do not believe that the results of a complete blood count would contribute to the patient's final disposition. Prescription Medications Considered but not Prescribed: Naprosyn will be prescribed for discomfort. Chronic Conditions Affecting Care: The patient has a history of bipolar disease and schizophrenia. FINAL IMPRESSION 1. Finger pain, left DISPOSITION Discharge 09/23/2024 11:08:08 AM PATIENT REFERRED TO: Wanda Mata APRN - [facility] [address] [facility] [address] In 3 days DISCHARGE MEDICATIONS: New Prescriptions NAPROXEN (NAPROSYN) 500 MG TABLET Take 1 tablet (500 mg) by mouth in the morning and 1 tablet (500 mg) in the evening. Take with meals. Do all this for 15 days. (Comment: Please note this report has been produced using speech recognition software and may contain errors related to that system including errors in grammar, punctuation, and spelling, as well as words and phrases that may be inappropriate. If there are any questions or concerns please feel freeto contact the dictating provider for clarification.) Ky Hurtado MD (electronically signed) Emergency Medicine Provider Ky Hurtado MD 09/23/24 1110 documented in this [facility]11-02-2024 Physician Emergency department Note* Ky Hurtado MD - 09/23/2024 10:30 AM EDT EMERGENCY DEPARTMENT ENCOUNTER Pt Name: Leonel Lake Birthdate 1985 Date of evaluation: 09/23/2024 ED Provider: Ky Hurtado MD CHIEF COMPLAINT Chief Complaint Patient presents with Hand Pain Denies injury HISTORY OF PRESENT ILLNESS I wore appropriate PPE for the entirety of this encounter. HPI Leonel Lake is a 38 y.o. male who presents to the emergency department complaining of pain to his left long finger. He states that about a month ago he awoke with pain to his left long finger PIP joint. He does not recall any injury. There is no strain. He does not know why he is having painin it. He complains of swelling to the joint. He has a history of cgy-aquacat-xdwetddae diabetes. He has schizophrenia. There is no history of gout or other inflammatory arthritis. He is right-hand dominant. Nursing Notes were reviewed. Limitations to history: None Outside historians: None REVIEW OF SYSTEMS Review of Systems Constitutional: Negative for chills, fatigue and fever. Musculoskeletal: Positive for arthralgias and joint swelling. Negative for myalgias. Skin: Negative for rash and wound. Neurological: Negative for weakness and numbness. Hematological: Does not bruise/bleed easily. 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 Dunbar Psoriasis 1999 Dr. Rabago Schizophrenia ([facility]) 2007 Type 2 diabetes mellitus ([facility]) 12/2019 SURGICAL HISTORY Past Surgical History: Procedure Laterality Date CHOLECYSTECTOMY 09/11/2021 Dr. Doran COLONOSCOPY 2013 [place] TONSILLECTOMY (HISTORICAL) UPPER GASTROINTESTINAL ENDOSCOPY 2013 Dr Dunbar CURRENT MEDICATIONS Previous Medications ATORVASTATIN (LIPITOR) 20 MG TABLET 20 mg. BENZONATATE (TESSALON) 100 MG CAPSULE Take 100 mg by mouth 3 times daily as needed for cough. BENZTROPINE (COGENTIN) 2 MG TABLET CHOLECALCIFEROL (VITAMIN D-3) 125 MCG (5000 UT) CAPSULE Take 125 mcg by mouth daily. CLINDAMYCIN (CLEOCIN) 300 MG CAPSULE take 1 capsule by mouth three times a day for 10 days (TAKE WITH A PROBIOTIC) CONTINUOUS GLUCOSE SENSOR (FREESTYLE GOGO 2 SENSOR) [facility] apply 1 SENSOR TO BACK OF ARM ONCE EVERY 14 DAYS TO MONITOR GLUCOSE DAPAGLIFLOZIN (FARXIGA) 5 MG TABLET Take by mouth. ESCITALOPRAM (LEXAPRO) 10 MG TABLET 10 mg. ETANERCEPT (ENBREL) 50 MG/ML INJECTION Inject 50 mg under the skin. FARXIGA 10 MG TABLET Take 10 mg by mouth daily. FENOFIBRATE (TRICOR) 145 MG TABLET Take 145 mg by mouth daily. FLUTICASONE (FLONASE ALLERGY RELIEF) 50 MCG/ACT NASAL SPRAY Dose = 1 spray(s), Nostril, each, qDay,# 16 gram(s), 11 Refill(s), [facility]acy: [facility] #[id number], Acute sinusitis, 177.8, cm, 04/05/24 14:15:00 EDT, Height, kg, 04/05/24 14:16:00 EDT, Dosing Weight GABAPENTIN (NEURONTIN) 400 MG CAPSULE 400 mg. GLIMEPIRIDE (AMARYL) 2 MG TABLET See Instructions, Take 2 tablets (4mg) by mouth with breakfast and1 tablet (2mg) with dinner, # 90 tab(s), 3 Refill(s), Pharmacy: [facility] [place], 179.6, cm, 04/13/24 10:38:00 EDT, Height, kg, 04/13/24 10:38:00 EDT, Dosing Weight HALOPERIDOL DECANOATE (HALDOL DECANOATE) 100 MG/ML INJECTION Inject 125 mg into the shoulder, thigh, or buttocks every 30 (thirty) days. HYDROXYZINE PAMOATE (VISTARIL) 50 MG CAPSULE take 1 capsule by mouth twice a day if needed METFORMIN (GLUCOPHAGE) 500 MG TABLET Take by mouth. METOPROLOL SUCCINATE XL (TOPROL-XL) 25 MG 24 HR TABLET Take 25 mg by mouth. MOBIC 15 MG TABLET 15 mg. OMEPRAZOLE (PRILOSEC) [address] CAPSULE Take 40 mg by mouth daily. SKYRIZI PEN 150 MG/ML SOLUTION AUTO-INJECTOR TIZANIDINE (ZANAFLEX) 4 MG TABLET 4 mg. ALLERGIES Penicillins, Prednisone, and Seroquel [quetiapine] FAMILY HISTORY Family History Problem Relation Name Age of Onset Asthma Mother Stewart No Known Problems Father not close Arthritis Mother Stewart No Known Problems Brother Corey No Known Problems Paternal Grandmother Hypotension Maternal Grandfather Stroke Maternal Grandfather Cancer Maternal Grandmother No Known Problems Paternal Grandfather SOCIAL HISTORY Social History Socioeconomic History Marital status: Single Tobacco Use Smoking status: Never Smokeless tobacco: Never Substance and Sexual Activity Alcohol use: Not Currently Drug use: Never Social History Narrative Single, lives with Mother, Stewart. No children. NS or ETOH use. Disabled since 2007 due to mental health ds Social Drivers of Health Financial Resource Strain: Medium Risk (06/11/2021) Received from [facility] [employer] [facility] Overall Financial Resource Strain (CARDIA) Difficulty of Paying Living Expenses: Somewhat hard Food Insecurity: No Food Insecurity (06/11/2021) Received from [facility] [employer] [facility] [facility] Hunger Vital Sign Worried About Running Out of Food in the Last Year: Never true Ran Out of Food in the Last Year: Never true Transportation Needs: No Transportation Needs (01/19/2020) Received from [facility] [employer] [facility] [employer] [facility] PRAPARE - Transportation Lack of Transportation (Medical): No Lack of Transportation (Non-Medical): No Physical Activity: Insufficiently Active (01/19/2020) Received from [facility] [employer] [facility] Exercise Vital Sign Days of Exercise per Week: 1 day Minutes of Exercise per Session: 30 min Stress: Stress Concern Present (01/19/2020) Received from [facility] [employer] [facility] [employer] [place] [employer] - Occupational Stress Questionnaire Feeling of Stress : Very much Social Connections: Unknown (01/19/2020) Received from [facility] Social Connection and Isolation Panel [NHANES] Frequency of Social Gatherings with Friends and Family: More than three times a week Attends Anglican Services: Never Active Member of Clubs or Organizations: No Attends Club or Organization Meetings: Never SCREENINGS Clear Coma Scale Best Eye Response: Spontaneous Best Verbal Response: Oriented Best Motor Response: Follows commands Clear Coma Scale Score: 15 PHYSICAL EXAM ED Triage Vitals [09/23/24 1035] Temp Heart Rate Resp BP 36.9 C (98.5 F) 78 16 -- SpO2 Temp Source Heart Rate Source Patient Position (!) 1 % Oral Monitor Sitting BP Location FiO2 (%) Right arm -- Physical Exam Vitals and nursing note reviewed. Constitutional: Appearance: Normal appearance. Comments: The patient is a middle-age male found lying on a cart. He is alert and oriented. He is afebrile. He is in no acute distress. HENT: Head: Normocephalic. Musculoskeletal: General: Swelling and tenderness present. No deformity or signs of injury. Comments: The patient has edema to the left long finger PIP joint dorsally. There is no abrasion, laceration, ecchymosis noted. The patient has full flexion as well as extension at the left long finger MCP, PIP, DIP joint. He describes normal sensation. Capillary refill is less than 2 seconds. Skin: General: Skin is warm. Capillary Refill: Capillary refill takes less than 2 seconds. Coloration: Skin is not pale. Findings: No erythema or rash. Neurological: Mental Status: He is alert and oriented to person, place, and time. Sensory: No sensory deficit. Psychiatric: Behavior: Behavior normal. DIAGNOSTIC RESULTS RADIOLOGY (Per Emergency Physician): Interpretation per the Radiologist below, if available at the time of this note: XR hand 3+ views left Final Result No acute osseous abnormality left hand. Report Dictated on Electronically Signed By: Davin Cunningham MD Electronically Signed Date/Time: 09/23/2024 10:58 AM EDT LABS: Labs Reviewed - No data to display All other labs were within normal range or not returned as of this dictation. EMERGENCY DEPARTMENT COURSE and DIFFERENTIAL DIAGNOSIS/MDM: Vitals: Vitals: 09/23/24 1035 Pulse: 78 Resp: 16 Temp: 36.9 C (98.5 F) TempSrc: Oral SpO2: (!) 1% Weight: 113 kg (250 lb) Height: 1.778 m (5' 10) Medications Administered in the ED: Medications - No data to display I Ky Hurtado MD am the fare register repairer of record. PROCEDURES: Unless otherwise noted below, none Procedures Differential Diagnosis Considerations: Differential diagnosis includes occult fracture, inflammatory arthritis. The patient has had the symptoms for a 1 month period of time. I do not believe that it represents an infectious arthritis. The joint itself is not warm to touch. There is no discoloration. ED testing and evaluation will be obtained to help differentiate these diagnostic possibilities anddetermine the most likely cause. Sources of History: I evaluated other historical sources including previous outpatient records and admission records. ED Course: In the emergency department I initially evaluated the patient with a history and physical examination in order to determine diagnostic testing and therapeutic care. On the basis of this history and physical examination left hand x-ray will be obtained. Reassessment: Left hand x-ray demonstrates no abnormality seen, especially in the area of the left long finger PIP joint. The patient is treated with a finger splint. Splint: I personally supervised and inspected the finger splint. The extremity is appropriately immobilizedfor stabilization. Patient neurovascularly intact before and after the splint application. Consideration of Admission/Observation: I considered admission for this patient, however, at this time the patient appears to be stable. I do not believe that the patient would benefit from admission at this time. I believe the patient canfollow-up with the primary care physician. The patient is advised to return to the emergency department if symptoms change or worsen where admission may need to be considered at a another time. Independent Interpretation of Tests: I independently evaluated the results of the patient's diagnostic testing in the context of the patient's presentation. Diagnostic Tests Considered but not Performed: I considered ordering a complete blood count. However, I do not believe that the results of a complete blood count would contribute to the patient's final disposition. Prescription Medications Considered but not Prescribed: Naprosyn will be prescribed for discomfort. Chronic Conditions Affecting Care: The patient has a history of bipolar disease and schizophrenia. FINAL IMPRESSION 1. Finger pain, left DISPOSITION Discharge 09/23/2024 11:08:08 AM PATIENT REFERRED TO: Wanda Mata, PICK AND SHOVEL WORKER - BUTTON TACKER [address] [facility] [address] In 3 days DISCHARGE MEDICATIONS: New Prescriptions NAPROXEN (NAPROSYN) 500 MG TABLET Take 1 tablet (500 mg) by mouth in the morning and 1 tablet (500 mg) in the evening. Take with meals. Do all this for 15 days. (Comment: Please note this report has been produced using speech recognition software and may contain errors related to that system including errors in grammar, punctuation, and spelling, as well as words and phrases that may be inappropriate. If there are any questions or concerns please feel freeto contact the dictating provider for clarification.) Ky Hurtado MD (electronically signed) Emergency Medicine Provider Ky Hurtado MD 09/23/24 [address] [id number] Discharge instructions Patient Education 08/10/2024 17:39:53 Earache Without Infection (Adult) Earache, No Infection (Adult) Earaches can happen without an infection. This occurs when air and fluid build up behind the eardrum causing a feeling of fullness and discomfort and reduced hearing. This is called otitis media witheffusion (OME) or serous otitis media. It means there is fluid in the middle ear. It is not the same as acute otitis media, which is typically from infection. OME can happen when you have a cold if congestion blocks the passage that drains the middle ear. This passage is called the eustachian tube. OME may also occur with nasal allergies or after a bacterial middle ear infection. The pain or discomfort may come and go. You may hear clicking or popping sounds when you chew or swallow. You may feel that your balance is off. Or you may hear ringing in the ear. It often takes from several weeks up to 3 months for the fluid to clear on its own. Oral pain relievers and ear drops help if there is pain. Decongestants and antihistamines sometimes help. Antibiotics don't help since there is no infection. Your doctor may prescribe a nasal spray to help reduce swelling in the nose and eustachian tube. This can allow the ear to drain. If your OME doesn't improve after 3 months, surgery may be used to drain the fluid and insert a small tube in the eardrum to allow continued drainage. Because the middle ear fluid can become infected, it is important to watch for signs of an ear infection which may develop later. These signs include increased ear pain, fever, or drainage from the ear. Home care The following guidelines will help you care for yourself at home: You may use ohtm-lzw-dhuuccx medicine as directed to control pain, unless another medicine was prescribed. If you have chronic liver or kidney disease or ever had a stomach ulcer or GI bleeding, talkwith your doctor before using these medicines. Aspirin should never be used in anyone under 18 years of age who is ill with a fever. It may cause severe liver damage. You may use khej-xkw-jybcbbm decongestants such as phenylephrine or pseudoephedrine. But they are not always helpful. Don't use nasal spray decongestants more than 3 days. Longer use can make congestion worse. Prescription nasal sprays from your doctor don't typically have those restrictions. Antihistamines may help if you are also having allergy symptoms. You may use medicines such as guaifenesin to thin mucus and promote drainage. Follow-up care Follow up with your healthcare provider or as advised if you are not feeling better after 3 days. When to seek medical advice Call your healthcare provider right away if any of the following occur: Your ear pain gets worse or does not start to improve Fever of 100.4 F (38 C) or higher, or as directed by your healthcare provider Fluid or blood draining from the ear Headache or sinus pain Stiff neck Unusual drowsiness or confusion 7315-9267 [employer]. [address] [place] [address]. All rights reserved. This information is not intended as a substitute for professional medical care. Always follow yourhealthcare professional's instructions. Follow Up Care 08/10/2024 17:19:48 With:WANDA MATA APRN-BUTTON TACKER Address: [address] [place] [address] [place] [address] [phone] When:2-4 days [facility] 09-19-2024 Note Discharge Instructions Thank you for allowing [place] to assist you with your healthcare needs. The following is importantdischarge information regarding your hospital visit. Diagnosis from Today's Visit Right ear pain What to Do Next Instructions from Your Care Team Alternate Tylenol (1 g) and ibuprofen (600 mg) every 3 hours for pain. Please follow-up with your PCP in 1 week if symptoms persist. No qualifying data available. Post Acute Orders No qualifying data available. You Need to Schedule the Following Appointments Follow Up with WANDA MATA When:Within 2-4 days Where:[address] [facility] [place] [address] [phone] Allergies Seroquel naproxen penicillin I got sick predniSONE Medications Please ask your primary doctor or pharmacist before taking any other medication not listed, including over the counter drugs, herbal medications, vitamins and or supplements as they may interact withyour home medications. What How Much When Why Instructions Last Dose Unchanged atorvastatin (atorvastatin 20 mg oral tablet) 1 tab(s) by mouth Once a day Unchanged benztropine (benztropine 1 mg oral tablet) 1 tab(s) by mouth Once a day Unchanged cholecalciferol (Vitamin D3 125 mcg (5000 intl units) oral capsule) 1 cap by mouth Once a day Vitamin D deficiency Duration: 90 Days Unchanged dapagliflozin (Farxiga 10 mg oral tablet) 1 tab(s) by mouth Once a day Duration: 90 Days Unchanged DME (DME MISCellaneous) See instructions Libre2 [place]. Use reader to scan sensor once every 8 hours. Unchanged DME (DME MISCellaneous) See instructions [employer] Sensors. Apply sensor to back of arm once every 14 days to monitor glucose. Unchanged DME (DME MISCellaneous) See instructions [employer] [place] Use reader to scan sensor to monitor sugars Unchanged DME (DME MISCellaneous) See instructions [employer] Sensors #2 sensors. 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 Dx: E11.9 Test AC and HS Unchanged escitalopram (Lexapro 10 mg oral tablet) 1 tab(s) by mouth Once a day Duration: 90 Days Unchanged fenofibrate (fenofibrate 145 mg oral tablet) 1 tab(s) by mouth Once a day Duration: 90 Days Unchanged fluticasone nasal (Flonase 50 mcg/ inh nasal spray) 1 spray(s) each nostril Once a day Acute sinusitis Duration: 30 Days Unchanged gabapentin (gabapentin 400 mg oral capsule) 1 cap by mouth Two (2) times a day Neuropathy Duration: 90 Days Unchanged glimepiride (glimepiride 2 mg oral tablet) See instructions Take 2 tablets (4mg) by mouth with breakfast and 1 tablet (2mg) with dinner Unchanged haloperidol (haloperidol 10 mg oral tablet) 1 tab(s) by mouth Daily at bedtime Unchanged hydrOXYzine (Vistaril 25 mg oral capsule) 1 cap by mouth Once Unchanged meloxicam (Mobic 15 mg oral tablet) 1 tab(s) by mouth Once a day Unchanged metFORMIN (MetFORMIN (Eqv-Glucophage XR) 500 mg oral tablet, EXTENDED RELEASE) 2 tab(s) by mouth Two (2) times a day Diabetes mellitus type 2 in obese 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 Bring all medications you take, including over the counter medications, herbals and other supplements with you to your doctor s visit. Patients and families are reminded to discard old lists and to update any records with all medication providers or retail pharmacies. Education Materials Earache, No Infection (Adult) Earaches can happen without an infection. This occurs when air and fluid build up behind the eardrum causing a feeling of fullness and discomfort and reduced hearing. This is called otitis media witheffusion (OME) or serous otitis media. It means there is fluid in the middle ear. It is not the same as acute otitis media, which is typically from infection. OME can happen when you have a cold if congestion blocks the passage that drains the middle ear. This passage is called the eustachian tube. OME may also occur with nasal allergies or after a bacterial middle ear infection. The pain or discomfort may come and go. You may hear clicking or popping sounds when you chew or swallow. You may feel that your balance is off. Or you may hear ringing in the ear. It often takes from several weeks up to 3 months for the fluid to clear on its own. Oral pain relievers and ear drops help if there is pain. Decongestants and antihistamines sometimes help. Antibiotics don't help since there is no infection. Your doctor may prescribe a nasal spray to help reduce swelling in the nose and eustachian tube. This can allow the ear to drain. If your OME doesn't improve after 3 months, surgery may be used to drain the fluid and insert a small tube in the eardrum to allow continued drainage. Because the middle ear fluid can become infected, it is important to watch for signs of an ear infection which may develop later. These signs include increased ear pain, fever, or drainage from the ear. Home care The following guidelines will help you care for yourself at home: You may use qnza-zha-stvhemd medicine as directed to control pain, unless another medicine was prescribed. If you have chronic liver or kidney disease or ever had a stomach ulcer or GI bleeding, talkwith your doctor before using these medicines. Aspirin should never be used in anyone under 18 years of age who is ill with a fever. It may cause severe liver damage. You may use grdc-ewk-quhkrer decongestants such as phenylephrine or pseudoephedrine. But they are not always helpful. Don't use nasal spray decongestants more than 3 days. Longer use can make congestion worse. Prescription nasal sprays from your doctor don't typically have those restrictions. Antihistamines may help if you are also having allergy symptoms. You may use medicines such as guaifenesin to thin mucus and promote drainage. Follow-up care Follow up with your healthcare provider or as advised if you are not feeling better after 3 days. When to seek medical advice Call your healthcare provider right away if any of the following occur: Your ear pain gets worse or does not start to improve Fever of 100.4 F (38 C) or higher, or as directed by your healthcare provider Fluid or blood draining from the ear Headache or sinus pain Stiff neck Unusual drowsiness or confusion [id number] [employer]. [address] [place] [address], [place] [address]. All rights reserved. This information is not intended as a substitute for professional medical care. Always follow yourhealthcare professional's instructions. Additional Information VACCINATE! IT SAVES LIVES! Members of the community who have not yet received the COVID-19 vaccine and would like to receive it can visit one of [facility] vaccine clinics. There are many vaccine clinic locations within the [facility]. For locations and available times, please visit www.gettheshot.coronavirus.[place].gov/. It is important to note that some COVID mobile vaccine clinics are held outdoors and may be canceled in rainy or stormy conditions. To learn more about pediatric vaccinations (ages 5-11), we invite you to visit the [employer] [facility] webpage. https://www.akBrazzleboxs.org/pages/[email or web address]-Wognk-[email or web address]-Ttaldygsxs-Vzqio-Lim stions.htmlTo learn more about the COVID-19 vaccine, we invite you to visit the CDC website for a list of frequently asked questions. https://www.cdc.gov/coronavirus/2019-ncov/vaccines/faq.html [email or web address] Patient Portal Access Instructions: Stay connected with your healthcare team and access your personal medical information anytime with the [email or web address] Patient Portal. If you would like a full copy of your medical records please contact the [facility] Medical Records Department Wednesday through Wednesday between 8a.m. and 4:30p.m. Please follow the directions below to access the portal: 1.Access the email account you provided upon registration to the hospital.2.Look for an invitation email from [facility].3.Open the email and access the invitation link: Accept Invitation to [email or web address].Fill in the required truong to create your account. Sign into [email or web address] with your username and password that you created in the above steps to stay up to date. You can then view a summary of results, a summary of your visits, and the ability to download your summaries to your computer or send the information securely to a physician. Remember that your healthcare information is confidential, so carefully consider who you will allow to register on the [email or web address] Patient Portal for access to your information. You can also access the [facility] Patient Portal on the [email or web address]. Simply click on Health Records under Music[employer] and then click on the MeetMe logo. HOW TO SAFELY DISPOSE OF PRESCRIPTION MEDICATIONS Please use one of the following methods to safely dispose of your unused medications. 1.Use a drug disposal kit: the drug disposal pouch allows you to safely discard your old and unuseddrugs. Ask your nurse to give you one when you are discharged.2.Visit a local take-back location: Many local pharmacies and police departments have programs that collect old and unwanted prescriptiondrugs. Call your local pharmacy or go to http://Pristine.io.ColonaryConcepts/4C9We3j to find one close to you.3.Make use of household items: Use cat litter or old coffee grounds to dispose medications if other options arenot available. Mix your drugs with these household products, seal them in an airtight container andthrow it into the garbage. Call [facility]: [phone] to be sure your drugs can be disposed of in this way. Some medicines may require a different approach.4.Never flush your medications down the toilet. IF YOU HAVE BEEN PRESCRIBED AN OPIOIDS FOR PAIN If you have been prescribed an opioid (such as hydrocodone, oxycodone or morphine), it is critical to understand the possible side effects and risks of opioid pain medications. Even when taken as directed, opioids can have several side effects including: Tolerance, meaning you might need to take more of a medication for the same pain relief. Nausea, vomiting and/or constipation. Sleepiness, dizziness, dry mouth, confusion, depression or itching. Physical dependence, meaning you have withdrawal symptoms when a medication is stopped ? this can develop within a few days. KNOW YOUR RESPONSIBILITIES It is important to know exactly how much and how often to take the opioid pain medications you are prescribed. Never take opioids in higher amounts or more often than prescribed. Do not combine opioids with alcohol or other drugs that cause drowsiness, such as benzodiazepines, also known as benzos,including diazepam and alprazolam, muscle relaxants or sleep aids. Never sell or share prescriptionopioids. This is illegal. Store opioids in a secure place and out of reach of others (including children, family, friends and visitors). The last page(s) of this document has been signed and retained as a CHART COPY Signatures Patient Education Materials Earache Without Infection (Adult) Medication Leaflets My discharge plan and instructions have been reviewed and explained to me and I,LEONEL LAKEtand my current condition and have read and understand these discharge instructions. I have received a written copy of the plan/instructions. If I have questions, I am aware that I should contact my doctor. 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 Signature: Date/Time: Relationship to Patient: Witness Name/Signature: Date/Time: [facility]08-08-2024 Hospital Discharge instructions Patient Education 06/29/2024 18:35:45 Gastritis (Adult) Gastritis (Adult) Gastritis is inflammation and irritation of the stomach lining. You can have it for a short time (acute) or be long lasting (chronic). Infection with bacteria called H pylori most often causes gastritis. More than a third of people in the have these bacteria in their bodies. In many cases, H pylori causes no problems or symptoms. In some people, though, the infection irritates the stomach lining and causes gastritis. H. pylori may be diagnosed through blood, stool, or breath tests, we well as through biopsy during an endoscopy. Other causes of stomach irritation include drinking alcohol, smoking or chewing tobacco, or taking pain-relieving medicines called NSAIDs (such as aspirin or ibuprofen). Certain drugs (such as cocaine) and immune conditions can also cause gastritis. Symptoms of gastritis can include: Belly pain or bloating Feeling full quickly Loss of appetite Nausea or vomiting Vomiting blood or having black stools Feeling more tired than usual An inflamed and irritated stomach lining is more likely to develop a sore called an ulcer. To help prevent this, gastritis should be treated. Home care If needed, our healthcare provider may prescribe medicines. If you have H pylori infection, treating it will likely relieve your symptoms. Other changes can help reduce stomach irritation and help itheal. If you have been prescribed medicines for H pylori infection, take them as directed. Take all of the medicine until it is finished or your healthcare provider tells you to stop, even if you feel better. Your healthcare provider may advise you not to take NSAIDs. If you take daily aspirin for your heart or other medical reasons, do not stop without talking to your healthcare provider first. Don't drink alcohol. Stop smoking. Smoking can irritate the stomach and delay healing. As much as possible, stay away from second hand smoke. Follow-up care Follow up with your healthcare provider, or as advised by our staff. You may need testing to check for inflammation or an ulcer. When to seek medical advice Call your healthcare provider for any of the following: Stomach pain that gets worse or moves to the lower right belly (appendix area) Chest pain that appears or gets worse, or spreads to the back, neck, shoulder, or arm Frequent vomiting (can t keep down liquids) Blood in the stool or vomit (red or black in color) Feeling weak or dizzy Shortness of breath Unexplained weight loss Fever of 100.4 F (38 C) or higher, or as directed by your healthcare provider [id number] [employer]. [address] [place] [address], [place] [address]. All rights reserved. This information is not intended as a substitute for professional medical care. Always follow yourhealthcare professional's instructions. Follow Up Care 06/29/2024 16:24:02 With:Go to emergency room if symptoms worsen Address:Unknown When:2-4 days With:WANDA MATA APRN-BUTTON TACKER Address: [address] [place] [address] [place] [phone] When:2-4 days [facility] 08-08-2024 Note Discharge Instructions Thank you for allowing [place] to assist you with your healthcare needs. The following is importantdischarge information regarding your hospital visit. Diagnosis from Today's Visit Gastritis Upper abdominal pain What to Do Next Instructions from Your Care Team Please follow-up with your primary care provider within the next 2 to 5 days. Please return to the emergency department for any acute worsening pain, development of fever or chills or intractable nausea and vomiting or chest pain or shortness of breath or other concerns. No qualifying data available. Post Acute Orders No qualifying data available. You Need to Schedule the Following Appointments Follow Up with Go to emergency room if symptoms worsen When:Within 2-4 days Follow Up with WANDA MATA When:Within 2-4 days Where:[address] [facility] [place] [phone] Allergies Seroquel naproxen penicillin I got sick predniSONE Medications Please ask your primary doctor or pharmacist before taking any other medication not listed, including over the counter drugs, herbal medications, vitamins and or supplements as they may interact withyour home medications. What How Much When Why Instructions Last Dose Unchanged atorvastatin (atorvastatin 20 mg oral tablet) 1 tab(s) by mouth Once a day Unchanged benztropine (benztropine 1 mg oral tablet) 1 tab(s) by mouth Once a day Unchanged cholecalciferol (Vitamin D3 125 mcg (5000 intl units) oral capsule) 1 cap by mouth Once a day Vitamin D deficiency Duration: 90 Days Unchanged dapagliflozin (Farxiga 10 mg oral tablet) 1 tab(s) by mouth Once a day Duration: 90 Days Unchanged DME (DME MISCellaneous) See instructions Libre2 [place]. Use reader to scan sensor once every 8 hours. Unchanged DME (DME MISCellaneous) See instructions Libre2 Sensors. Apply sensor to back of arm once every 14 days to monitor glucose. Unchanged DME (DME MISCellaneous) See instructions Libre3 [place] Use reader to scan sensor to monitor sugars Unchanged DME (DME MISCellaneous) See instructions Libre3 Sensors #2 sensors. 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 Dx: E11.9 Test AC and HS Unchanged escitalopram (Lexapro 10 mg oral tablet) 1 tab(s) by mouth Once a day Duration: 90 Days Unchanged fenofibrate (fenofibrate 145 mg oral tablet) 1 tab(s) by mouth Once a day Duration: 90 Days Unchanged fluticasone nasal (Flonase 50 mcg/ inh nasal spray) 1 spray(s) each nostril Once a day Acute sinusitis Duration: 30 Days Unchanged gabapentin (gabapentin 400 mg oral capsule) 1 cap by mouth Two (2) times a day Neuropathy Duration: 90 Days Unchanged glimepiride (glimepiride 2 mg oral tablet) See instructions Take 2 tablets (4mg) by mouth with breakfast and 1 tablet (2mg) with dinner Unchanged haloperidol (haloperidol 10 mg oral tablet) 1 tab(s) by mouth Daily at bedtime Unchanged hydrOXYzine (Vistaril 25 mg oral capsule) 1 cap by mouth Once Unchanged meloxicam (Mobic 15 mg oral tablet) 1 tab(s) by mouth Once a day Unchanged metFORMIN (MetFORMIN (Eqv-Glucophage XR) 500 mg oral tablet, EXTENDED RELEASE) 2 tab(s) by mouth Two (2) times a day Diabetes mellitus type 2 in obese 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 Bring all medications you take, including over the counter medications, herbals and other supplements with you to your doctor s visit. Patients and families are reminded to discard old lists and to update any records with all medication providers or retail pharmacies. Education Materials Gastritis (Adult) Gastritis is inflammation and irritation of the stomach lining. You can have it for a short time (acute) or be long lasting (chronic). Infection with bacteria called H pylori most often causes gastritis. More than a third of people in the [place] have these bacteria in their bodies. In many cases, H pylori causes no problems or symptoms. In some people, though, the infection irritates the stomach lining and causes gastritis. H. pylori may be diagnosed through blood, stool, or breath tests, we well as through biopsy during an endoscopy. Other causes of stomach irritation include drinking alcohol, smoking or chewing tobacco, or taking pain-relieving medicines called NSAIDs (such as aspirin or ibuprofen). Certain drugs (such as cocaine) and immune conditions can also cause gastritis. Symptoms of gastritis can include: Belly pain or bloating Feeling full quickly Loss of appetite Nausea or vomiting Vomiting blood or having black stools Feeling more tired than usual An inflamed and irritated stomach lining is more likely to develop a sore called an ulcer. To help prevent this, gastritis should be treated. Home care If needed, our healthcare provider may prescribe medicines. If you have H pylori infection, treating it will likely relieve your symptoms. Other changes can help reduce stomach irritation and help itheal. If you have been prescribed medicines for H pylori infection, take them as directed. Take all of the medicine until it is finished or your healthcare provider tells you to stop, even if you feel better. Your healthcare provider may advise you not to take NSAIDs. If you take daily aspirin for your heart or other medical reasons, do not stop without talking to your healthcare provider first. Don't drink alcohol. Stop smoking. Smoking can irritate the stomach and delay healing. As much as possible, stay away from second hand smoke. Follow-up care Follow up with your healthcare provider, or as advised by our staff. You may need testing to check for inflammation or an ulcer. When to seek medical advice Call your healthcare provider for any of the following: Stomach pain that gets worse or moves to the lower right belly (appendix area) Chest pain that appears or gets worse, or spreads to the back, neck, shoulder, or arm Frequent vomiting (can t keep down liquids) Blood in the stool or vomit (red or black in color) Feeling weak or dizzy Shortness of breath Unexplained weight loss Fever of 100.4 F (38 C) or higher, or as directed by your healthcare provider [id number] [employer]. [address] [place] [address], [place] [address]. All rights reserved. This information is not intended as a substitute for professional medical care. Always follow yourhealthcare professional's instructions. Additional Information VACCINATE! IT SAVES LIVES! Members of the community who have not yet received the COVID-19 vaccine and would like to receive it can visit one of [facility] vaccine clinics. There are many vaccine clinic locations within the [facility]. For locations and available times, please visit www.gettheshot.coronavirus.[place].gov/. It is important to note that some COVID mobile vaccine clinics are held outdoors and may be canceled in rainy or stormy conditions. To learn more about pediatric vaccinations (ages 5-11), we invite you to visit the [facility] webpage. https://www.[facility].org/pages/4551-Xhzne-Kmmineyuskk-Gpiizcceol-Ekwbz-Uyo stions.htmlTo learn more about the COVID-19 vaccine, we invite you to visit the CDC website for a list of frequently asked questions. https://www.cdc.gov/coronavirus/2019-ncov/vaccines/faq.html [facility] Patient Portal Access Instructions: Stay connected with your healthcare team and access your personal medical information anytime with the [email or web address] Patient Portal. If you would like a full copy of your medical records please contact the [facility] Medical Records Department Wednesday through Wednesday between 8a.m. and 4:30p.m. Please follow the directions below to access the portal: 1.Access the email account you provided upon registration to the [facility].2.Look for an invitation email from [facility].3.Open the email and access the invitation link: Accept Invitation to [email or web address].Fill in the required truong to create your account. Sign into www.[employer] with your username and password that you created in the above steps to stay up to date. You can then view a summary of results, a summary of your visits, and the ability to download your summaries to your computer or send the information securely to a physician. Remember that your healthcare information is confidential, so carefully consider who you will allow to register on the [email or web address] Patient Portal for access to your information. You can also access the [facility] Patient Portal on the [employer] jossy. Simply click on Health Records under [employer] and then click on the [employer] logo. HOW TO SAFELY DISPOSE OF PRESCRIPTION MEDICATIONS Please use one of the following methods to safely dispose of your unused medications. 1.Use a drug disposal kit: the drug disposal pouch allows you to safely discard your old and unuseddrugs. Ask your nurse to give you one when you are discharged.2.Visit a local take-back location: Many local pharmacies and police departments have programs that collect old and unwanted prescriptiondrugs. Call your local pharmacy or go to http://Pristine.io.ColonaryConcepts/9Q2En3w to find one close to you.3.Make use of household items: Use cat litter or old coffee grounds to dispose medications if other options arenot available. Mix your drugs with these household products, seal them in an airtight container andthrow it into the garbage. Call [facility]: [phone] to be sure your drugs can be disposed of in this way. Some medicines may require a different approach.4.Never flush your medications down the toilet. IF YOU HAVE BEEN PRESCRIBED AN OPIOIDS FOR PAIN If you have been prescribed an opioid (such as hydrocodone, oxycodone or morphine), it is critical to understand the possible side effects and risks of opioid pain medications. Even when taken as directed, opioids can have several side effects including: Tolerance, meaning you might need to take more of a medication for the same pain relief. Nausea, vomiting and/or constipation. Sleepiness, dizziness, dry mouth, confusion, depression or itching. Physical dependence, meaning you have withdrawal symptoms when a medication is stopped ? this can develop within a few days. KNOW YOUR RESPONSIBILITIES It is important to know exactly how much and how often to take the opioid pain medications you are prescribed. Never take opioids in higher amounts or more often than prescribed. Do not combine opioids with alcohol or other drugs that cause drowsiness, such as benzodiazepines, also known as benzos,including diazepam and alprazolam, muscle relaxants or sleep aids. Never sell or share prescriptionopioids. This is illegal. Store opioids in a secure place and out of reach of others (including children, family, friends and visitors). The last page(s) of this document has been signed and retained as a CHART COPY Signatures Patient Education Materials Gastritis (Adult) Medication Leaflets My discharge plan and instructions have been reviewed and explained to me and ISELENA STEVEN Aunderstand my current condition and have read and understand these discharge instructions. I have received a written copy of the plan/instructions. If I have questions, I am aware that I should contact my doctor. 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 Signature: Date/Time: Relationship to Patient: Witness Name/Signature: Date/Time: [facility]08-08-2024 Note ORIGINAL EXAMINATION: CT OF THE ABDOMEN AND PELVIS WITH CONTRAST06/29/2024 5:[address] ABDOMEN/PELVIS WITH CONTRAST TECHNIQUE: CT of the abdomen and pelvis was performed with the administration of intravenous contrast. Multiplanar reformatted images are provided for review. Automated exposure control, iterative reconstruction, and/or weight based adjustment of the mA/kV was utilized to reduce the radiation dose to as low as reasonably achievable. COMPARISON: CT abdomen pelvis December 17, 2023 HISTORY: ORDERING SYSTEM PROVIDED HISTORY: Reason for Exam: abd pain luq x2 days. nausea. FINDINGS: The size, density, and morphology of the liver, spleen, adrenals, kidneys, pancreas and unopacified loops of bowel are unremarkable. The opacified aorta demonstrates normal size and morphology without aneurysmal dilation or dissection. There are no enlarged lymph nodes by pathologic size criteria. Appendix is normal. There is no free fluid within the pelvis. The bladder and pelvic organs have an unremarkable CT appearance. The osseous structures are without gross lytic or sclerotic lesion. The lung bases are clear. IMPRESSION: No acute intra-abdominal intrapelvic pathology. Interpreted by: Darien Gaviria MD Preliminary Report By: Darien Gaviria MD Electronically signed By Darien Gaviria MD Dictated Date: 06/29/2024 6:02:20 PM Prelim Date: 06/29/2024 6:13:22 PM Sign Date: 06/29/2024 6:13:22 PM [facility]ing [facility] ORIGINAL EXAMINATION: ONE XRAY VIEW OF THE CHEST 06/29/2024 5:12 pm COMPARISON: 09/14/2023. HISTORY: ORDERING SYSTEM PROVIDED HISTORY: Reason for Exam: Shortness of breath FINDINGS: Low lung volumes. Stable cardiomediastinal silhouette. No focal consolidation. No large pleural effusion or pneumothorax. No acute osseous findings. IMPRESSION: Hypoventilatory changes. No focal consolidation. Preliminary Report was Dictated by a Resident I have personally reviewed all of the images of this examination and agree with the resident findings and interpretation. Interpreted by: Darien Gaviria MD Preliminary Report By: Cortes Smith Electronically signed By Darien Gaviria MD Dictated Date: 06/29/2024 5:24:52 PM Prelim Date: 06/29/2024 5:25:58 PM Sign Date: 06/29/2024 9:32:08 PM [facility]ing [facility] Note Sinus rhythm Left anterior fascicular block Compared to previous EKG of (09/14/2023), no significant changes Electronic Signature: GILMA HYLTON DO 06/29/2024 17:40:16[facility] 05-11-20[facility] Emergency department Note* Shereen Interiano RN - 04/01/2024 1:[address] Herrera at , EKG complete. Pt states hx of CP with anxiety Shereen Interiano RN 04/01/24 [id number]* Shereen Interiano RN - 04/01/2024 1:[address] Herrera at , EKG complete. Pt states hx of CP with anxiety Shereen Interiano RN 04/01/24 0117 * Triston Herrera MD - 04/01/2024 1:10 AM EDT EMERGENCY DEPARTMENT ENCOUNTER Pt Name: Leonel Lake Birthdate 1985 Date of evaluation: 04/01/2024 ED Provider: Triston Herrera MD CHIEF COMPLAINT Chief Complaint Patient presents with Chest Pain L sided CP that radiates to L shoulder blade. +nausea, denies SOB with this CP. CP started late afternoon yesterday. Denies hx of stroke or heart attack HISTORY OF PRESENT ILLNESS (Location/Symptom, Timing/Onset, Context/Setting, Quality, Duration, Modifying Factors, Severity) Note limiting factors. I wore appropriate PPE for the entirety of this encounter. HPI Leonel aLke is a 38 y.o. who presents to the emergency department complaint of left-sided chest pain that radiates to his shoulders. Denies nausea or shortness of breath. States that it began about 10 hours prior to sensation. States has been constant. Denies any known coronary disease. States that he had a unremarkable stress test about 6 months ago. Patient has diabetes and high cholesterol but denies any other risk factors of smoking or high blood pressure. States that he has had previous presentations with diagnosis of anxiety. Nursing Notes were reviewed. Outside historians: Parent REVIEW OF SYSTEMS Review of Systems Constitutional: Negative for fever. HENT: Negative for sore throat. Respiratory: Negative for shortness of breath. Cardiovascular: Positive for chest pain. Gastrointestinal: Negative for abdominal pain and nausea. Neurological: Negative for headaches. Pertinent positives and negatives as per HPI PAST MEDICAL HISTORY Past Medical History: Diagnosis Date Bipolar 1 disorder ([facility]) 2007 MsMarlon, BUTTON TACKER, Argelia- disabled Depression Gastritis [address] Dunbar Psoriasis 1999 Dr. Rabago Schizophrenia ([facility]) 2007 Type 2 diabetes mellitus ([facility]) 12/2019 SURGICAL HISTORY Past Surgical History: Procedure Laterality Date CHOLECYSTECTOMY 09/11/2021 Dr. Doran COLONOSCOPY Dc Dunbar TONSILLECTOMY (HISTORICAL) UPPER GASTROINTESTINAL ENDOSCOPY 2013 Dr Dunbar CURRENT MEDICATIONS Previous Medications No medications on file ALLERGIES Penicillins, Prednisone, and Seroquel [quetiapine] FAMILY HISTORY Family History Problem Relation Name Age of Onset Asthma Mother Stewart No Known Problems Father not close Arthritis Mother Stewart No Known Problems Brother Corey No Known Problems Paternal Grandmother Hypotension Maternal Grandfather Stroke Maternal Grandfather Cancer Maternal Grandmother No Known Problems Paternal Grandfather SOCIAL HISTORY Social History Socioeconomic History Marital status: Single Tobacco Use Smoking status: Never Smokeless tobacco: Never Substance and Sexual Activity Alcohol use: Not Currently Drug use: Never Social History Narrative Single, lives with Mother, Stewart. No children. NS or ETOH use. Disabled since 2007 due to mental health ds PHYSICAL EXAM ED Triage Vitals Temp Pulse Resp BP -- -- -- -- SpO2 Temp src Heart Rate Source Patient Position -- -- -- -- BP Location FiO2 (%) -- -- Physical Exam Vitals and nursing note reviewed. Constitutional: General: He is not in acute distress. Appearance: He is obese. He is not ill-appearing or toxic-appearing. Comments: 38-year-old male HENT: Head: Normocephalic and atraumatic. Mouth/Throat: Mouth: Mucous membranes are moist. Pharynx: Oropharynx is clear. Eyes: Extraocular Movements: Extraocular movements intact. Pupils: Pupils are equal, round, and reactive to light. Cardiovascular: Rate and Rhythm: Normal rate and regular rhythm. Pulmonary: Effort: Pulmonary effort is normal. Breath sounds: Normal breath sounds. Abdominal: Palpations: Abdomen is soft. Tenderness: There is no abdominal tenderness. Musculoskeletal: Cervical back: Normal range of motion. Comments: Symmetric lower extremities no calf tenderness Skin: Findings: Rash present. Neurological: Mental Status: He is alert. DIAGNOSTIC RESULTS RADIOLOGY (Per Emergency Physician): Interpretation per the Radiologist below, if available at the time of this note: XR chest 1 view (Results Pending) LABS: Labs Reviewed BASIC METABOLIC PANEL - Abnormal Result Value SODIUM 138 POTASSIUM 3.9 CHLORIDE 105 CARBON DIOXIDE 22 UREA NITROGEN 12 CREATININE 0.72 GLUCOSE 178 (*) CALCIUM 9.8 ANION GAP 11 eGFR >90.0 CBC WITH AUTO DIFFERENTIAL - Abnormal Auto WBC 6.6 RBC 5.17 Hemoglobin 15.1 Hematocrit 42.6 MCV 82.4 MCH 29.2 MCHC 35.4 RDW 12.9 Platelets 251 MPV 9.2 nRBC 0.0 Neutrophils Relative 57.6 Lymphocytes Relative 23.9 Monocytes Relative 7.9 Eosinophils Relative 9.6 (*) Basophils Relative 0.8 Immature Grans % 0.2 Neutrophils Absolute 3.8 Lymphocytes Absolute 1.6 Monocytes Absolute 0.5 Eosinophils Absolute 0.6 (*) Basophils Absolute 0.1 Immature Grans Absolute 0.0 TROPONIN I - Normal TROPONIN I <0.012 Narrative: Patients with high levels of Biotin oral intake (ie >5 mg/day) may have falsely decreased Troponin levels. All other labs were within normal range or not returned as of this dictation. EMERGENCY DEPARTMENT COURSE and DIFFERENTIAL DIAGNOSIS/MDM: Vitals: Vitals: 05/10/15 11204/01/24115 BP: (!) 141/84 BP Location: Right arm Patient Position: Lying Pulse: 77 Resp: 16 Temp: 36.5 C (97.7 F) TempSrc: Oral SpO2: 100% 99% Weight: 113 kg (250 lb) Height: 1.803 m (5' 11) Medications aspirin chewable tablet 324 mg (has no administration in time range) LORazepam (Ativan) injection 1 mg (has no administration in time range) Evaluated for chest pain. Treated with aspirin and intravenous Ativan. Patient is PERC negative. Heart score of 3 due to risk factors and story. Low clinical concern. Troponin was normal the setting of chest pain for several hours. EKG unchanged. Chest x-ray unchanged. Discharged in improved condition with recommended follow-up with primary care provider. ED Course as of 04/01/24256 Sat April 01, 2024202 Auto WBC: 6.6 [SP] 0203 HEMOGLOBIN: 15.1 [SP] 0203 eGFR: >90.0 [SP] 0203 TROPONIN I: <0.012 [SP] 0204 ECG 12 lead IMPRESSION: Sinus rhythm Left anterior fascicular block Compared to 05/07/2022- no significant changes Electronically Signed On 04-01-2024 02:04:21 EDT by Triston Herrera [SP] 0204 XR chest 1 view No acute cardiopulmonary process upon my review of chest x-ray.. Similar to May 07, 2022 [SP] 0256 XR chest 1 view IMPRESSION: No acute cardiopulmonary abnormality identified. [SP] ED Course User Index [SP] Triston Herrera MD Diagnoses as of 04/01/24256 Chest pain, unspecified type SCREENINGS HEART Score History: Moderately suspicious ECG: Normal Age: <45 Risk Factors: >2 risk factors or hx of atherosclerotic disease Troponin: Less than or equal to normal limit HEART Score: 3 MDM elements: The patient presented with chief complaint of chest pain. The differential diagnosis associated with this patient's presentation includes ACS, angina, bronchospasm, anxiety, pneumonia, PE. Our workup consisted of ordering/reviewing: EKG, blood work, chest x-ray. To aid in management, I performed an independent interpretation of Xray(s) chest EKG; see my interpretation elsewhere in the chart. The patient will be Discharged. Patient is in agreement with this plan. PROCEDURES: Unless otherwise noted below, none Procedures FINAL IMPRESSION 1. Chest pain, unspecified type DISPOSITION Discharge 04/01/2024 02:05:39 AM PATIENT REFERRED TO: Wanda Mata APRN - BUTTON TACKER [address] [facility] [address] Schedule an appointment as soon as possible for a visit [facility] ED [address] [facility] [phone] Go to As needed, If symptoms worsen DISCHARGE MEDICATIONS: New Prescriptions No medications on file (Comment: Please note this report has been produced using speech recognition software and may contain errors related to that system including errors in grammar, punctuation, and spelling, as well as words and phrases that may be inappropriate. If there are any questions or concerns please feel freeto contact the dictating provider for clarification.) Triston Herrera MD (electronically signed) Emergency Medicine Provider Triston Herrera MD 04/01/24 0211 documented in this [facility]05-11-2024 Physician Emergency department Note* Triston Herrera MD - 04/01/2024 1:10 AM EDT EMERGENCY DEPARTMENT ENCOUNTER Pt Name: Leonel Lake Birthdate 1985 Date of evaluation: 04/01/2024 ED Provider: Triston Herrera MD CHIEF COMPLAINT Chief Complaint Patient presents with Chest Pain L sided CP that radiates to L shoulder blade. +nausea, denies SOB with this CP. CP started late afternoon yesterday. Denies hx of stroke or heart attack HISTORY OF PRESENT ILLNESS (Location/Symptom, Timing/Onset, Context/Setting, Quality, Duration, Modifying Factors, Severity) Note limiting factors. I wore appropriate PPE for the entirety of this encounter. HPI Leonel Lake is a 38 y.o. who presents to the emergency department complaint of left-sided chest pain that radiates to his shoulders. Denies nausea or shortness of breath. States that it began about 10 hours prior to sensation. States has been constant. Denies any known coronary disease. States that he had a unremarkable stress test about 6 months ago. Patient has diabetes and high cholesterol but denies any other risk factors of smoking or high blood pressure. States that he has had previous presentations with diagnosis of anxiety. Nursing Notes were reviewed. Outside historians: Parent REVIEW OF SYSTEMS Review of Systems Constitutional: Negative for fever. HENT: Negative for sore throat. Respiratory: Negative for shortness of breath. Cardiovascular: Positive for chest pain. Gastrointestinal: Negative for abdominal pain and nausea. Neurological: Negative for headaches. 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 Dunbar Psoriasis 2000 Dr. Rabago Schizophrenia ([facility]) 2007 Type 2 diabetes mellitus ([facility]) 12/2019 SURGICAL HISTORY Past Surgical History: Procedure Laterality Date CHOLECYSTECTOMY 09/11/2021 Dr. Doran COLONOSCOPY 2013 [place] TONSILLECTOMY (HISTORICAL) UPPER GASTROINTESTINAL ENDOSCOPY 2013 Dr Dunbar CURRENT MEDICATIONS Previous Medications No medications on file ALLERGIES Penicillins, Prednisone, and Seroquel [quetiapine] FAMILY HISTORY Family History Problem Relation Name Age of Onset Asthma Mother Stewart No Known Problems Father not close Arthritis Mother Stewart No Known Problems Brother Corey No Known Problems Paternal Grandmother Hypotension Maternal Grandfather Stroke Maternal Grandfather Cancer Maternal Grandmother No Known Problems Paternal Grandfather SOCIAL HISTORY Social History Socioeconomic History Marital status: Single Tobacco Use Smoking status: Never Smokeless tobacco: Never Substance and Sexual Activity Alcohol use: Not Currently Drug use: Never Social History Narrative Single, lives with MotherStewart. No children. NS or ETOH use. Disabled since 2007 due to mental health ds PHYSICAL EXAM ED Triage Vitals Temp Pulse Resp BP -- -- -- -- SpO2 Temp src Heart Rate Source Patient Position -- -- -- -- BP Location FiO2 (%) -- -- Physical Exam Vitals and nursing note reviewed. Constitutional: General: He is not in acute distress. Appearance: He is obese. He is not ill-appearing or toxic-appearing. Comments: 38-year-old male HENT: Head: Normocephalic and atraumatic. Mouth/Throat: Mouth: Mucous membranes are moist. Pharynx: Oropharynx is clear. Eyes: Extraocular Movements: Extraocular movements intact. Pupils: Pupils are equal, round, and reactive to light. Cardiovascular: Rate and Rhythm: Normal rate and regular rhythm. Pulmonary: Effort: Pulmonary effort is normal. Breath sounds: Normal breath sounds. Abdominal: Palpations: Abdomen is soft. Tenderness: There is no abdominal tenderness. Musculoskeletal: Cervical back: Normal range of motion. Comments: Symmetric lower extremities no calf tenderness Skin: Findings: Rash present. Neurological: Mental Status: He is alert. DIAGNOSTIC RESULTS RADIOLOGY (Per Emergency Physician): Interpretation per the Radiologist below, if available at the time of this note: XR chest 1 view (Results Pending) LABS: Labs Reviewed BASIC METABOLIC PANEL - Abnormal Result Value SODIUM 138 POTASSIUM 3.9 CHLORIDE 105 CARBON DIOXIDE 22 UREA NITROGEN 12 CREATININE 0.72 GLUCOSE 178 (*) CALCIUM 9.8 ANION GAP 11 eGFR >90.0 CBC WITH AUTO DIFFERENTIAL - Abnormal Auto WBC 6.6 RBC 5.17 Hemoglobin 15.1 Hematocrit 42.6 MCV 82.4 MCH 29.2 MCHC 35.4 RDW 12.9 Platelets 251 MPV 9.2 nRBC 0.0 Neutrophils Relative 57.6 Lymphocytes Relative 23.9 Monocytes Relative 7.9 Eosinophils Relative 9.6 (*) Basophils Relative 0.8 Immature Grans % 0.2 Neutrophils Absolute 3.8 Lymphocytes Absolute 1.6 Monocytes Absolute 0.5 Eosinophils Absolute 0.6 (*) Basophils Absolute 0.1 Immature Grans Absolute 0.0 TROPONIN I - Normal TROPONIN I <0.012 Narrative: Patients with high levels of Biotin oral intake (ie >5 mg/day) may have falsely decreased Troponin levels. All other labs were within normal range or not returned as of this dictation. EMERGENCY DEPARTMENT COURSE and DIFFERENTIAL DIAGNOSIS/MDM: Vitals: Vitals: 04/01/24 0112 04/01/24 0116 BP: (!) 141/84 BP Location: Right arm Patient Position: Lying Pulse: 77 Resp: 16 Temp: 36.5 C (97.7 F) TempSrc: Oral SpO2: 100% 99% Weight: 113 kg (250 lb) Height: 1.803 m (5' 11) Medications aspirin chewable tablet 324 mg (has no administration in time range) LORazepam (Ativan) injection 1 mg (has no administration in time range) Evaluated for chest pain. Treated with aspirin and intravenous Ativan. Patient is PERC negative. Heart score of 3 due to risk factors and story. Low clinical concern. Troponin was normal the setting of chest pain for several hours. EKG unchanged. Chest x-ray unchanged. Discharged in improved condition with recommended follow-up with primary care provider. ED Course as of 04/01/24256 Sat April 01, 2024202 Auto WBC: 6.6 [SP] 0203 HEMOGLOBIN: 15.1 [SP] 0203 eGFR: >90.0 [SP] 0203 TROPONIN I: <0.012 [SP] 0204 ECG 12 lead IMPRESSION: Sinus rhythm Left anterior fascicular block Compared to 05/07/2022- no significant changes Electronically Signed On 04-01-2024 02:04:21 EDT by Triston Herrera [SP] 0204 XR chest 1 view No acute cardiopulmonary process upon my review of chest x-ray.. Similar to May 07, 2022 [SP] 025 XR chest 1 view IMPRESSION: No acute cardiopulmonary abnormality identified. [SP] ED Course User Index [SP] Triston Herrera MD Diagnoses as of 04/01/24256 Chest pain, unspecified type SCREENINGS HEART Score History: Moderately suspicious ECG: Normal Age: <45 Risk Factors: >2 risk factors or hx of atherosclerotic disease Troponin: Less than or equal to normal limit HEART Score: 3 MDM elements: The patient presented with chief complaint of chest pain. The differential diagnosis associated with this patient's presentation includes ACS, angina, bronchospasm, anxiety, pneumonia, PE. Our workup consisted of ordering/reviewing: EKG, blood work, chest x-ray. To aid in management, I performed an independent interpretation of Xray(s) chest EKG; see my interpretation elsewhere in the chart. The patient will be Discharged. Patient is in agreement with this plan. PROCEDURES: Unless otherwise noted below, none Procedures FINAL IMPRESSION 1. Chest pain, unspecified type DISPOSITION Discharge 04/01/2024 02:05:39 AM PATIENT REFERRED TO: Wanda Mata, TERRY - BUTTON TACKER [address] [facility] [address] Schedule an appointment as soon as possible for a visit [facility] ED [address] [place] [phone] Go to As needed, If symptoms worsen DISCHARGE MEDICATIONS: New Prescriptions No medications on file (Comment: Please note this report has been produced using speech recognition software and may contain errors related to that system including errors in grammar, punctuation, and spelling, as well as words and phrases that may be inappropriate. If there are any questions or concerns please feel freeto contact the dictating provider for clarification.) Triston Herrera MD (electronically signed) Emergency Medicine Provider Triston Herrera MD 04/01/24 0211 [id number] Discharge instructions Patient Education 02/27/2024 09:24:01 Dental Abscess Dental Abscess An abscess is a pocket of pus at the tip of a tooth root in your jaw bone. It is caused by an infection at the root of the tooth. It can cause pain and swelling of the gum, cheek, or jaw. Pain may spread from the tooth to your ear or the area of your jaw on the same side. If the abscess isn t treated, it appears as a bubble or swelling on the gum near the tooth. The pressure that builds in this swelling is the source of the pain. More serious infections cause your face to swell. An abscess can be caused by a crack in the tooth, a cavity, a gum infection, or a combination of these. Once the pulp of the tooth is exposed, bacteria can spread down the roots to the tip. If the bacteria are not stopped, they can damage the bone and soft tissue, and an abscess can form. Home care Follow these guidelines when caring for yourself at home: Don't have hot and cold foods and drinks. Your tooth may be sensitive to changes in temperature. Don t chew on the side of the infected tooth. If your tooth is chipped or cracked, or if there is a large open cavity, put oil of cloves directlyon the tooth to relieve pain. You can buy oil of cloves at drugstores. Some pharmacies carry an jsiq-ryr-zremiyb toothache kit. This contains a paste that you can put on the exposed tooth to make it less sensitive. Put a cold pack on your jaw over the sore area to help reduce pain. You may use bmso-kxm-mxnwvkr medicine to ease pain, unless another medicine was prescribed. If you have chronic liver or kidney disease, talk with your healthcare provider before using acetaminophen or ibuprofen. Also talk with your provider if you ve had a stomach ulcer or GI bleeding. An antibiotic will be prescribed. Take it until finished, even if you are feeling better after a few days. Follow-up care Follow up with your dentist or an oral surgeon, or as advised. Once an infection occurs in a tooth,it will continue to be a problem until the infection is drained. This is done through surgery or a root canal. Or you may need to have your tooth pulled. Call 911 Call 911 if any of these occur: Unusual drowsiness Headache or stiff neck Weakness or fainting Difficulty swallowing, breathing, or opening your mouth Swollen eyelids When to seek medical advice Call your healthcare provider right away if any of these occur: Your face becomes more swollen or red Pain gets worse or spreads to your neck Fever of 100.4 F (38.0 C) or higher, or as directed by your healthcare provider Pus drains from the tooth [id number] [employer]. [address] [place] [address]. All rights reserved. This information is not intended as a substitute for professional medical care. Always follow yourhealthcare professional's instructions. Follow Up Care 02/27/2024 09:13:12 With:WANDA MATA Address: [address] [place] [phone] When:2-4 days [facility] 04-07-2024 Nurse Progress note Patient came in with swelling along right jawline. right milton has aprox 3+ edema. no respiratory issue or tongue swelling noted. Digitally Signed by Jennifer De Oliveira RN on 02/27/2024 09:27 AM [facility]04-07-2024 Emergency department Discharge summary Discharge Instructions Thank you for allowing [place] to assist you with your healthcare needs. The following is importantdischarge information regarding your hospital visit. Diagnosis from Today's Visit Facial swelling Pain in tooth What to Do Next Instructions from Your Care Team No qualifying data available. Post Acute Orders No qualifying data available. You Need to Schedule the Following Appointments Follow Up with WANDA MATA When Within 2-4 days Where: [address] [place] [phone] Allergies Seroquel naproxen penicillin (I got sick) predniSONE Medications Please ask your primary doctor or pharmacist before taking any other medication not listed, including over the counter drugs, herbal medications, vitamins and or supplements as they may interact withyour home medications. What How Much When Why Instructions Last Dose New clindamycin (clindamycin 300 mg oral capsule) 1 cap by mouth Three (3) times a day Duration: 10 Days Take with a probiotic Printed Prescription Unchanged atorvastatin (atorvastatin 20 mg oral tablet) 1 tab(s) by mouth Once a day Unchanged benztropine (Cogentin 1 mg oral tablet) 1 tab(s) by mouth Once a day Unchanged cholecalciferol (Vitamin D3 125 mcg (5000 intl units) oral capsule) 1 cap by mouth Once a day Vitamin D deficiency Duration: 90 Days Unchanged dapagliflozin (Farxiga 10 mg oral tablet) 1 tab(s) by mouth Once a day Duration: 90 Days Unchanged DME (DME MISCellaneous) See instructions Libre2 [place]. Use reader to scan sensor once every 8 hours. Unchanged DME (DME MISCellaneous) See instructions Libre2 Sensors. Apply sensor to back of arm once every 14 days to monitor glucose. Unchanged DME (Lancets) See instructions Diabetes mellitus type 2 in obese 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 due to type 2 diabetes mellitus Dx: E11.9 Test AC and HS Unchanged escitalopram (Lexapro 10 mg oral tablet) 1 tab(s) by mouth Once a day Duration: 90 Days Unchanged fenofibrate (fenofibrate 145 mg oral tablet) 1 tab(s) by mouth Once a day Duration: 90 Days Unchanged fluticasone nasal (Flonase 50 mcg/ inh nasal spray) 1 spray(s) each nostril Once a day Acute sinusitis Duration: 30 Days Unchanged gabapentin (gabapentin 400 mg oral capsule) 1 cap by mouth Two (2) times a day Unchanged glimepiride (glimepiride 2 mg oral tablet) See instructions Take 2 tablets (4mg) by mouth with breakfast and 1 tablet (2mg) with dinner, short term supply in lieu of provider absence Unchanged haloperidol (haloperidol 10 mg oral tablet) 1 tab(s) by mouth Daily at bedtime Unchanged hydrOXYzine (Vistaril 25 mg oral capsule) 1 cap by mouth Once Unchanged meloxicam (Mobic 15 mg oral tablet) 1 tab(s) by mouth Once a day Unchanged metFORMIN (MetFORMIN (Eqv-Glucophage XR) 500 mg oral tablet, EXTENDED RELEASE) 2 tab(s) by mouth Two (2) times a day Diabetes mellitus type 2 in obese 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 due to type 2 diabetes mellitus Duration: 90 Days Unchanged omeprazole (omeprazole 40 mg oral delayed release capsule) 1 cap by mouth Once a day Duration: 90 Days Unchanged risankizumab (Skyrizi) Every 4 weeks Unchanged tiZANidine (tiZANidine 4 mg oral tablet) 1 tab(s) by mouth Every 8 hours Please take this list to your next doctor s visit. Bring all medications you take, including over the counter medications, herbals and other supplements with you to your doctor s visit. Patients and families are reminded to discard old lists and to update any records with all medication providers or retail pharmacies. Medication Leaflets clindamycin (oral/injection) (adrian Mortensen sin) Cleocin HCl, Cleocin Pediatric, Cleocin Phosphate What is the most important information I should know about clindamycin? Clindamycin can cause diarrhea, which may be severe or lead to serious, life- threatening intestinalproblems. If you have diarrhea that is watery or bloody, stop using clindamycin and call your doctor. What is clindamycin? Clindamycin is an antibiotic that is used to treat serious infections caused by bacteria. Clindamycin may also be used for purposes not listed in this medication guide. What should I discuss with my healthcare provider before using clindamycin? You should not use this medicine if you are allergic to clindamycin or lincomycin. Tell your doctor if you have ever had: colitis, Crohn's disease, or other intestinal disorder; eczema, or allergic skin reaction; asthma or a severe allergic reaction to aspirin; liver or kidney disease; or an allergy to yellow food dye. It is not known whether this medicine will harm an unborn baby. Tell your doctor if you are or plan to become . Clindamycin can pass into breast milk and may cause side effects in the nursing baby. If you are while taking this medicine, call your doctor if your baby has diaper rash, redness or white patches in the mouth or throat, stomach discomfort, or diarrhea that is watery or bloody. Clindamycin injection may contain an ingredient that can cause serious side effects or in very young or premature babies. Do not give this medicine to a child without medical advice. How should I use clindamycin? Follow all directions on your prescription label and read all medication guides or instruction sheets. Use the medicine exactly as directed. Clindamycin oral is taken by mouth. Clindamycin injection is injected into a muscle, or as an infusion into a vein. A healthcare provider will give your first dose and may teach you how to properly use the medication by yourself. Take the capsule with a full glass of water to keep it from irritating your throat. Measure liquid medicine carefully. Use the dosing syringe provided, or use a medicine dose-measuring device (not a kitchen spoon). You may need frequent medical tests during treatment. If you need surgery, tell your surgeon you currently use clindamycin. Use this medicine for the full prescribed length of time, even if your symptoms quickly improve. Skipping doses can increase your risk of infection that is resistant to medication. Clindamycin will not treat a viral infection such as the flu or a common cold. Store at room temperature away from moisture and heat. Protect the injectable medicine from high heat. Do not store the oral liquid in the refrigerator. Throw away any unused oral liquid after 2 weeks. Use a needle and syringe only once and then place them in a puncture-proof 'sharps' container. Follow state or local laws about how to dispose of this container. Keep it out of the reach of children and pets. What happens if I miss a dose? Use the medicine as soon as you can, but skip the missed dose if it is almost time for your next dose. Do not use two doses at one time. What happens if I overdose? Seek emergency medical attention or call the Poison Help line at . What should I avoid while using clindamycin? Antibiotic medicines can cause diarrhea, which may be a sign of a new infection. If you have diarrhea that is watery or bloody, call your doctor. Do not use anti-diarrhea medicine unless your doctor tells you to. What are the possible side effects of clindamycin? Get emergency medical help if you have signs of an allergic reaction (hives, difficult breathing, swelling in your face or throat) or a severe skin reaction (fever, sore throat, burning in your eyes,skin pain, red or purple skin rash that spreads and causes blistering and peeling). Seek medical treatment if you have a serious drug reaction that can affect many parts of your body.Symptoms may include: skin rash, fever, swollen glands, flu- like symptoms, muscle aches, severe weakness, unusual bruising, or yellowing of your skin or eyes. Call your doctor at once if you have: kidney problems--swelling, urinating less, feeling tired or short of breath; liver problems--loss of appetite, stomach pain (upper right side), tiredness, itching, dark urine, george-colored stools, jaundice (yellowing of the skin or eyes); any change in bowel habits; severe stomach pain, diarrhea that is watery or bloody; little or no urination; or a metallic taste in your mouth (after clindamycin injection). Common side effects may include: nausea, vomiting, stomach pain; mild skin rash; or vaginal itching or discharge; This is not a complete list of side effects and others may occur. Call your doctor for medical advice about side effects. You may report side effects to FDA at 7-962-DNY-6366. What other drugs will affect clindamycin? Sometimes it is not safe to use certain medications at the same time. Some drugs can affect your blood levels of other drugs you take, which may increase side effects or make the medications less effective. Other drugs may affect clindamycin, including prescription and qaby-baz-sbvpwzg medicines, vitamins, and herbal products. Tell your doctor about all your current medicines and any medicine you start or stop using. Where can I get more information? Your pharmacist can provide more information about clindamycin. Remember, keep this and all other medicines out of the reach of children, never share your medicines with others, and use this medication only for the indication prescribed. Every effort has been made to ensure that the information provided by [employer]. ('[employer]') is accurate, up-to-date, and complete, but no guarantee is made to that effect. Drug information contained herein may be time sensitive. [employer] information has been compiled for use by healthcare practitioners and consumers in the [place] and therefore [employer] does not warrant that uses outside of the [place] are appropriate, unless specifically indicated otherwise. [employer]'s drug information does not endorse drugs, diagnose patients or recommend therapy. [facility] HospitalSom[facility] Communicationss drug information isan informational resource designed to assist licensed healthcare practitioners in caring for their p atients and/or to serve consumers viewing this service as a supplement to, and not a substitute for, the expertise, skill, knowledge and judgment of healthcare practitioners. The absence of a warningfor a given drug or drug combination in no way should be construed to indicate that the drug or drug combination is safe, effective or appropriate for any given patient. [facility] does not assume any responsibility for any aspect of healthcare administered with the aid of information [facility] provides. The information contained herein is not intended to cover all possible uses, directions, precautions, warnings, drug interactions, allergic reactions, or adverse effects. If you have questions about the drugs you are taking, check with your doctor, nurse or pharmacist. Copyright 9790-3802 [employer] Version: 14.01. Revision Date: 08/18/2022. Education Materials Dental Abscess An abscess is a pocket of pus at the tip of a tooth root in your jaw bone. It is caused by an infection at the root of the tooth. It can cause pain and swelling of the gum, cheek, or jaw. Pain may spread from the tooth to your ear or the area of your jaw on the same side. If the abscess isn t treated, it appears as a bubble or swelling on the gum near the tooth. The pressure that builds in this swelling is the source of the pain. More serious infections cause your face to swell. An abscess can be caused by a crack in the tooth, a cavity, a gum infection, or a combination of these. Once the pulp of the tooth is exposed, bacteria can spread down the roots to the tip. If the bacteria are not stopped, they can damage the bone and soft tissue, and an abscess can form. Home care Follow these guidelines when caring for yourself at home: Don't have hot and cold foods and drinks. Your tooth may be sensitive to changes in temperature. Don t chew on the side of the infected tooth. If your tooth is chipped or cracked, or if there is a large open cavity, put oil of cloves directlyon the tooth to relieve pain. You can buy oil of cloves at drugstores. Some pharmacies carry an fudg-xbc-npeixng toothache kit. This contains a paste that you can put on the exposed tooth to make it less sensitive. Put a cold pack on your jaw over the sore area to help reduce pain. You may use nsca-oab-qoheais medicine to ease pain, unless another medicine was prescribed. If you have chronic liver or kidney disease, talk with your healthcare provider before using acetaminophen or ibuprofen. Also talk with your provider if you ve had a stomach ulcer or GI bleeding. An antibiotic will be prescribed. Take it until finished, even if you are feeling better after a few days. Follow-up care Follow up with your dentist or an oral surgeon, or as advised. Once an infection occurs in a tooth,it will continue to be a problem until the infection is drained. This is done through surgery or a root canal. Or you may need to have your tooth pulled. Call 911 Call 911 if any of these occur: Unusual drowsiness Headache or stiff neck Weakness or fainting Difficulty swallowing, breathing, or opening your mouth Swollen eyelids When to seek medical advice Call your healthcare provider right away if any of these occur: Your face becomes more swollen or red Pain gets worse or spreads to your neck Fever of 100.4 F (38.0 C) or higher, or as directed by your healthcare provider Pus drains from the tooth [id number] [employer]. [address] [place] [address], [place] [address]. All rights reserved. This information is not intended as a substitute for professional medical care. Always follow yourhealthcare professional's instructions. Additional Information VACCINATE! IT SAVES LIVES! Members of the community who have not yet received the COVID-19 vaccine and would like to receive it can visit one of [facility] vaccine clinics. There are many vaccine clinic locations within the [facility]. For locations and available times, please visit www.gettheshot.coronavirus.[place].gov/. It is important to note that some COVID mobile vaccine clinics are held outdoors and may be canceled in rainy or stormy conditions. To learn more about pediatric vaccinations (ages 5-11), we invite you to visit the [facility] webpage. https://www.[email or web address].org/pages/[email or web address]-Igrcn-Ewurjdwccjy-Pequvdmfax-Mfuvi-Rbq stions.htmlTo learn more about the COVID-19 vaccine, we invite you to visit the CDC website for a list of frequently asked questions. https://www.cdc.gov/coronavirus/2019-ncov/vaccines/faq.html [place] [facility] Access Instructions: Stay connected with your healthcare team and access your personal medical information anytime with the [email or web address] Patient Portal. If you would like a full copy of your medical records please contact the [facility] Medical Records Department Wednesday through Wednesday between 8a.m. and 4:30p.m. Please follow the directions below to access the portal: 1.Access the email account you provided upon registration to the [facility].2.Look for an invitation email from [facility].3.Open the email and access the invitation link: Accept Invitation to [place] [facility].Fill in the required truong to create your account. Sign into www.[employer] with your username and password that you created in the above steps to stay up to date. You can then view a summary of results, a summary of your visits, and the ability to download your summaries to your computer or send the information securely to a physician. Remember that your healthcare information is confidential, so carefully consider who you will allow to register on the [email or web address] Patient Portal for access to your information. You can also access the [email or web address] Patient Portal on the [employer] jossy. Simply click on Health Records under [employer] and then click on the MeetMe logo. HOW TO SAFELY DISPOSE OF PRESCRIPTION MEDICATIONS Please use one of the following methods to safely dispose of your unused medications. 1.Use a drug disposal kit: the drug disposal pouch allows you to safely discard your old and unuseddrugs. Ask your nurse to give you one when you are discharged.2.Visit a local take-back location: Many local pharmacies and police departments have programs that collect old and unwanted prescriptiondrugs. Call your local pharmacy or go to http://bit.ColonaryConcepts/6R3Ex9m to find one close to you.3.Make use of household items: Use cat litter or old coffee grounds to dispose medications if other options arenot available. Mix your drugs with these household products, seal them in an airtight container andthrow it into the garbage. Call [facility]: [phone] to be sure your drugs can be disposed of in this way. Some medicines may require a different approach.4.Never flush your medications down the toilet. IF YOU HAVE BEEN PRESCRIBED AN OPIOIDS FOR PAIN If you have been prescribed an opioid (such as hydrocodone, oxycodone or morphine), it is critical to understand the possible side effects and risks of opioid pain medications. Even when taken as directed, opioids can have several side effects including: Tolerance, meaning you might need to take more of a medication for the same pain relief. Nausea, vomiting and/or constipation. Sleepiness, dizziness, dry mouth, confusion, depression or itching. Physical dependence, meaning you have withdrawal symptoms when a medication is stopped ? this can develop within a few days. KNOW YOUR RESPONSIBILITIES It is important to know exactly how much and how often to take the opioid pain medications you are prescribed. Never take opioids in higher amounts or more often than prescribed. Do not combine opioids with alcohol or other drugs that cause drowsiness, such as benzodiazepines, also known as benzos,including diazepam and alprazolam, muscle relaxants or sleep aids. Never sell or share prescriptionopioids. This is illegal. Store opioids in a secure place and out of reach of others (including children, family, friends and visitors). The last page(s) of this document has been signed and retained as a CHART COPY Signatures Patient Education Materials Dental Abscess Medication Leaflets clindamycin (oral/injection) My discharge plan and instructions have been reviewed and explained to me and I,LEONEL LAKEtand my current condition and have read and understand these discharge instructions. I have received a written copy of the plan/instructions. If I have questions, I am aware that I should contact my doctor. 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 Signature: Date/Time: Relationship to Patient: Witness Name/Signature: [facility]23 Note ORIGINAL NM MYOCARDIAL SPECT STRESS/REST CLINICAL STATEMENT: coronary artery calcification TECHNIQUE: Lexiscan dose:0.4 mg Radiopharmaceutical (stress): Tc-99m Sestamibi Dose:30.2 mCi Radiopharmaceutical (rest): Tc-99m Sestamibi Dose:10.4 mCi SPECT acquisition and processing Reconstruction and reorientation of SPECT images into short axis, vertical and horizontal long axisplanes Quantitative LVEF assessment COMPARISON:None REPORT:The left ventricle is upper normal in size. On gated imaging the ejection fraction is normalby this method at 51% with normal wall motion. On the stress images there is a decrease in the uptake of activity in the inferior and inferolateral wall extending to the apex. No significant improvement in the uptake of activity in these areas on rest images. There otherwise is relatively homogenous uptake of activity in other areas of the myocardium. IMPRESSION: 1. No evidence of significant inducible ischemia or prior myocardial infarction. 2. Normal ejection fraction by this method at 51% with normal wall motion. 3. Diaphragmatic attenuation artifact. Interpreted By: Dario Mai MD Preliminary Report By: Dario Mai MD Electronically Signed By: Dario Mai MD Dictated Date: 10/07/2023 12:34:27 PM Prelim Date: 10/07/2023 12:34:27 PM Sign Date: 10/07/2023 12:40:39 PM Ordering Provider:[facility]10-12-2023 Note ORIGINAL EXAMINATION: CTA OF THE CHEST09/02/2023 9:54 am CTA CHEST WITH CONTRAST TECHNIQUE: CTA of the chest was performed after the administration of intravenous contrast. Multiplanar reformatted images are provided for review. MIP images are provided for review. Automated exposure control, iterative reconstruction, and/or weight based adjustment of the mA/kV was utilized to reduce the radiation dose to as low as reasonably achievable. CTA of the thorax was acquired in the axial plane. Coronal and sagittal reformatted images were reviewed. Three dimensional reconstructions were created on a separate workstation. COMPARISON: Two-view chest 01/12/2015. HISTORY: ORDERING SYSTEM PROVIDED HISTORY: Reason for Exam: calcified aorta FINDINGS: Thoracic aortic caliber is normal. There is no evidence of calcific atherosclerotic changes within the thoracic aorta. There are aortic valvular calcifications. There are coronary artery calcifications. There is good contrast opacification of the pulmonary arteries with no evidence of pulmonary embolic disease. There are no pleural or pericardial effusions. There are no enlarged mediastinal or hilar lymph nodes. There is hepatomegaly with diffuse hepatic steatosis. The adrenal glands are normal. Lung window images: The tracheobronchial tree is clear. The lungs are clear with no nodules or infiltrates or interstitial lung disease or bronchiectasis. There is no pleural abnormality or pneumothorax. IMPRESSION: 1. No acute intrathoracic process. 2. Hepatomegaly with diffuse hepatic steatosis. Interpreted by: Bharat Pardo Preliminary Report By: Bharat Pardo Electronically signed By Bharat Pardo Dictated Date: 09/02/2023 9:55:27 AM Prelim Date: 09/02/2023 9:59:01 AM Sign Date: 09/02/2023 9:59:01 AM Ordering Provider[facility] Emergency department Note* Devon Peterson DO - 08/27/2023 8:03 PM EDT EMERGENCY DEPARTMENT ENCOUNTER Pt Name: Leonel Lake Birthdate 1985 Date of evaluation: 08/27/2023 ED Provider: Devon Peterson DO CHIEF COMPLAINT Chief Complaint Patient presents with Hand Pain HISTORY OF PRESENT ILLNESS (Location/Symptom, Timing/Onset, Context/Setting, Quality, Duration, Modifying Factors, Severity) Note limiting factors. I wore appropriate PPE for the entirety of this encounter. HPI Leonel Lake is a 37 y.o. male who presents to the emergency department with history of psoriasis and psoriatic arthritis presents emergency department left hand pain. Symptoms started yesterday. The patient reports he normally has pain in his wrists, elbows, shoulders, knees, and back but hehas never experienced pain in his hand. He denies any redness or drainage. Denies any trauma. Nursing Notes were reviewed. 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 Dunbar Psoriasis 2000 Dr. Rabago Schizophrenia ([facility]) 2007 Type 2 diabetes mellitus ([facility]) 12/2019 SURGICAL HISTORY Past Surgical History: Procedure Laterality Date CHOLECYSTECTOMY 09/11/2021 Dr. Doran COLONOSCOPY 2013 [place] TONSILLECTOMY (HISTORICAL) UPPER GASTROINTESTINAL ENDOSCOPY 2013 Dr Dunbar CURRENT MEDICATIONS There are no discharge medications for this patient. ALLERGIES Penicillins and Prednisone FAMILY HISTORY Family History Problem Relation Name Age of Onset Asthma Mother Stewart No Known Problems Father not close Arthritis Mother Stewart No Known Problems Brother Corey No Known Problems Paternal Grandmother Hypotension Maternal Grandfather Stroke Maternal Grandfather Cancer Maternal Grandmother No Known Problems Paternal Grandfather SOCIAL HISTORY Social History Socioeconomic History Marital status: Single Tobacco Use Smoking status: Never Smokeless tobacco: Never Substance and Sexual Activity Alcohol use: Not Currently Drug use: Never Social History Narrative Single, lives with MotherStewart. No children. NS or ETOH use. Disabled since 2007 due to mental health ds SCREENINGS PHYSICAL EXAM ED Triage Vitals Temp Pulse Resp BP -- -- -- -- SpO2 Temp src Heart Rate Source Patient Position -- -- -- -- BP Location FiO2 (%) -- -- Physical Exam Constitutional: General: He is not in acute distress. Appearance: Normal appearance. He is not ill-appearing, toxic-appearing or diaphoretic. Musculoskeletal: Comments: Tenderness to the dorsum of the left hand. No obvious swelling or deformity. Brisk capillary refill. Fingers with normal range of motion. No tenderness along the flexor tendons. No finger swelling. Skin: Capillary Refill: Capillary refill takes less than 2 seconds. Comments: No skin color change or bruising to the hand Neurological: Mental Status: He is alert. DIAGNOSTIC RESULTS RADIOLOGY (Per Emergency Physician): Interpretation per the Radiologist below, if available at the time of this note: XR hand 3+ views left Final Result 1. Mild left middle finger edema. 2. No acute osseous findings. Report Dictated on Electronically Signed By: Marc Mcdaniel MD Electronically Signed Date/Time: 08/27/2023 8:37 PM EDT LABS: Labs Reviewed - No data to display All other labs were within normal range or not returned as of this dictation. EMERGENCY DEPARTMENT COURSE and DIFFERENTIAL DIAGNOSIS/MDM: Vitals: Vitals: 08/27/232008 BP: 118/76 Pulse: 74 Resp: 18 Temp: 36.7 C (98 F) SpO2: 99% Medications - No data to display MDM The patient presented with chief complaint of hand pain. See history and physical exam above. Differential diagnosis includes but is not limited to arthritis, crystal arthropathy. Plain films were obtained. To aid in management, I performed an independent interpretation of all laboratory tests, EKG, imaging, and other diagnostics ordered. Plain films are negative for acute fracture as interpreted by me, see radiologist report for details. The patient was updated on the results, questions were answered. Symptoms likely secondary to arthritis. Plan for discharge with follow-up to PCP. I Devon Peterson DO am the fare register repairer of record. PROCEDURES: Unless otherwise noted below, none Procedures FINAL IMPRESSION 1. Pain of left hand DISPOSITION Discharge 08/27/2023 08:40:01 PM PATIENT REFERRED TO: Wanda Mata APRN - [employer] [address] [facility] [address] [facility] [address] [facility] [address] DISCHARGE MEDICATIONS: There are no discharge medications for this patient. (Comment: Please note this report has been produced using speech recognition software and may contain errors related to that system including errors in grammar, punctuation, and spelling, as well as words and phrases that may be inappropriate. If there are any questions or concerns please feel freeto contact the dictating provider for clarification.) Devon Peterson DO (electronically signed) Emergency Medicine Provider Devon Peterson DO 08/27/232152 * Perez Contreras RN - 08/27/2023 8:03 PM EDT Pt comes into ED with complaints of left middle finger pain. Pt states two days ago he woke up to his whole hand swelling. Pain is rated 10/10 and pt is unsure of the etiology of injury documented in this [facility]10-06-2023 Emergency department Triage note* Perez Contreras RN - 08/27/2023 8:03 PM EDT Pt comes into ED with complaints of left middle finger pain. Pt states two days ago he woke up to his whole hand swelling. Pain is rated 10/10 and pt is unsure of the etiology of injury [id number] Phys[facility] Emergency department Note* Devon Peterson DO - 08/27/2023 8:03 PM EDT EMERGENCY DEPARTMENT ENCOUNTER Pt Name: Leonel Lake Birthdate 1985 Date of evaluation: 08/27/2023 ED Provider: Devon Peterson DO CHIEF COMPLAINT Chief Complaint Patient presents with Hand Pain HISTORY OF PRESENT ILLNESS (Location/Symptom, Timing/Onset, Context/Setting, Quality, Duration, Modifying Factors, Severity) Note limiting factors. I wore appropriate PPE for the entirety of this encounter. HPI Leonel Lake is a 37 y.o. male who presents to the emergency department with history of psoriasis and psoriatic arthritis presents emergency department left hand pain. Symptoms started yesterday. The patient reports he normally has pain in his wrists, elbows, shoulders, knees, and back but hehas never experienced pain in his hand. He denies any redness or drainage. Denies any trauma. Nursing Notes were reviewed. 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 Dunbar Psoriasis [address] Dr. Rabago Schizophrenia ([facility]) 2007 Type 2 diabetes mellitus ([facility]) 12/2019 SURGICAL HISTORY Past Surgical History: Procedure Laterality Date CHOLECYSTECTOMY 09/11/2021 Dr. Doran COLONOSCOPY 2013 [place] TONSILLECTOMY (HISTORICAL) UPPER GASTROINTESTINAL ENDOSCOPY 2014 Dr Dunbar CURRENT MEDICATIONS There are no discharge medications for this patient. ALLERGIES Penicillins and Prednisone FAMILY HISTORY Family History Problem Relation Name Age of Onset Asthma Mother Stewart No Known Problems Father not close Arthritis Mother Stewart No Known Problems Brother Corey No Known Problems Paternal Grandmother Hypotension Maternal Grandfather Stroke Maternal Grandfather Cancer Maternal Grandmother No Known Problems Paternal Grandfather SOCIAL HISTORY Social History Socioeconomic History Marital status: Single Tobacco Use Smoking status: Never Smokeless tobacco: Never Substance and Sexual Activity Alcohol use: Not Currently Drug use: Never Social History Narrative Single, lives with MotherStewart. No children. NS or ETOH use. Disabled since 2007 due to mental health ds SCREENINGS PHYSICAL EXAM ED Triage Vitals Temp Pulse Resp BP -- -- -- -- SpO2 Temp src Heart Rate Source Patient Position -- -- -- -- BP Location FiO2 (%) -- -- Physical Exam Constitutional: General: He is not in acute distress. Appearance: Normal appearance. He is not ill-appearing, toxic-appearing or diaphoretic. Musculoskeletal: Comments: Tenderness to the dorsum of the left hand. No obvious swelling or deformity. Brisk capillary refill. Fingers with normal range of motion. No tenderness along the flexor tendons. No finger swelling. Skin: Capillary Refill: Capillary refill takes less than 2 seconds. Comments: No skin color change or bruising to the hand Neurological: Mental Status: He is alert. DIAGNOSTIC RESULTS RADIOLOGY (Per Emergency Physician): Interpretation per the Radiologist below, if available at the time of this note: XR hand 3+ views left Final Result 1. Mild left middle finger edema. 2. No acute osseous findings. Report Dictated on Electronically Signed By: Marc Mcdaniel MD Electronically Signed Date/Time: 08/27/2023 8:37 PM EDT LABS: Labs Reviewed - No data to display All other labs were within normal range or not returned as of this dictation. EMERGENCY DEPARTMENT COURSE and DIFFERENTIAL DIAGNOSIS/MDM: Vitals: Vitals: 08/27/232008 BP: 118/76 Pulse: 74 Resp: 18 Temp: 36.7 C (98 F) SpO2: 99% Medications - No data to display MDM The patient presented with chief complaint of hand pain. See history and physical exam above. Differential diagnosis includes but is not limited to arthritis, crystal arthropathy. Plain films were obtained. To aid in management, I performed an independent interpretation of all laboratory tests, EKG, imaging, and other diagnostics ordered. Plain films are negative for acute fracture as interpreted by me, see radiologist report for details. The patient was updated on the results, questions were answered. Symptoms likely secondary to arthritis. Plan for discharge with follow-up to PCP. I Devon Peterson DO am the fare register repairer of record. PROCEDURES: Unless otherwise noted below, none Procedures FINAL IMPRESSION 1. Pain of left hand DISPOSITION Discharge 08/27/2023 08:40:01 PM PATIENT REFERRED TO: Wanda Mata APRN - [employer] [address] [facility] [address] [facility] ED [address] [facility] [address] DISCHARGE MEDICATIONS: There are no discharge medications for this patient. (Comment: Please note this report has been produced using speech recognition software and may contain errors related to that system including errors in grammar, punctuation, and spelling, as well as words and phrases that may be inappropriate. If there are any questions or concerns please feel freeto contact the dictating provider for clarification.) Devon Peterson DO (electronically signed) Emergency Medicine Provider Devon Peterson DO 08/27/232152 [id number] Note* Exam Date Time Procedure Performing Provider Status 08/13/23 11:06 AM Echocardiogram, Adult ([facility]) Auth (Verified) [facility] 02-20-2023 Procedure [facility] 05-07-2022 Hospital Discharge instructions* Instructions* Garth Shah MD - 05/07/2022 May have more symptoms when you leave here. Call your doctor for follow up * Attachments The following attachments cannot be sent through Care Everywhere. * Diarrhea ([place]) [facility] Phone: [phone]) 170-928611-22-2021 Hospital Discharge instructions Patient Education 10/13/2021 14:14:16 Abdominal Pain, Unknown Cause, (Male) Unknown Causes of Abdominal Pain (Male) Based on your visit today, the exact cause of your abdominal pain is not clear. Your exam and testsdon't suggest a dangerous cause at this time. However, the signs of a serious problem may take moretime to appear. Although your evaluation was reassuring today, sometimes early in the course of many conditions, exam and lab tests can appear normal. Therefore, it is important for you to watch for any new symptoms or worsening of your condition. It may not be obvious what caused your symptoms. Pay attention to things that do seem to make your symptoms worse or better and discuss this with your doctor when you follow up. The evaluation of abdominal pain in the emergency department may only require an exam by the doctoror it may include blood, urine or imaging studies, depending on many factors. Sometimes exams and tests can identify a cause but in many cases, a clear cause is not found. Further testing at follow up visits may help to suggest a clear diagnosis. Home care Rest as much as you can until your next exam. Try to avoid any medicines (unless otherwise directed by your doctor), foods, activities, or other factors that may have contributed to your symptoms. Try to eat foods that you know that you have tolerated well in the past. Certain diets may be recommended for some conditions that cause abdominal pain. However, since the cause of your symptoms may not be clear, discuss your diet more with your healthcare provider or specialist for further recommendations. If you have diarrhea, it may help to avoid dairy (lactose) for the time being. A low fat, low fiberdiet can also help. Eating several small meals per day as opposed to 2 or 3 larger meals may help. Avoid dehydration. Make sure to drink plenty of water. Other options include broth, soup, gelatin, sports drinks, or other clear liquids. Watch closely for anything that may make your symptoms worse or better. Pay close attention to symptoms below that may mean your condition is getting worse. Follow-up care Follow up with your healthcare provider if your symptoms are not improving, or as advised. In some cases, you may need more testing. When to seek medical advice Call your healthcare provider right away if any of these occur: Pain is becoming worse You are unable to take your medicines or can't keep water down due to excessive vomiting Swelling of the abdomen Fever of 100.4 F (38 C) or higher, or as directed by your healthcare provider Blood in vomit or bowel movements (dark red or black color) Jaundice (yellow color of eyes and skin) New onset of weakness, dizziness or fainting New onset of chest, arm, back, neck or jaw pain [id number] [employer]. [address] [place] [address], [place] [address]. All rights reserved. This information is not intended as a substitute for professional medical care. Always follow yourhealthcare professional's instructions. Follow Up Care 10/13/2021 11:13:04 With:Follow up with primary care provider Address:Unknown When:2-4 days [facility] Gilberto 10-21-2021 NoteOPERATIVE NOTE DATE OF PROCEDURE: 09/11/2021 SURGEON: PHILIP DORAN M.D., FACS RULING MACHINE OPERATOR: see chart PREOPERATIVE DIAGNOSIS: chronic cholecystitis cholelithiasis POSTOPERATIVE DIAGNOSIS: Same OPERATION: Robotic cholecystectomy ANESTHESIA: General anesthesia ESTIMATED BLOOD LOSS: less than 50 COMPLICATIONS: None SPECIMENS: Gallbladder HISTORY: The patient is a 35 y.o. year old male with history of above preop diagnosis. I explained the risk, benefits, expected outcome, and alternatives to the procedure. Patient understands and is in agreement to proceed with operation. PROCEDURE: Patient taken to the operating room and placed supine on the operating table. After adequate anesthesia and timeout protocol was completed. The surgical area was prepped and draped in standard sterile fashion. Anesthesia performed a MARIUM block. 8mm infraumbilical incision made and Veress needle placed intraabdominal with proper placement confirmed by normal flush saline. Pneumoperitoneum was established with CO2 gas to pressure of 15 mm Hg and 8mm non-bladed infraumbilical port then placed. Patient then placed in reverse trendelenburg and rotated to the left. Under direct vision 10/12mm port placed epigastric and 8mm ports placed right and left lateral abdominal wall. The robotic arms were then properly docked and camera inserted and instruments advanced under direct vision without complication. I then assumed position at robotic console to proceed with operation. The gallbladder was grasped at the fundus and at the neck. The neck of the gallbladder was retracted laterally. Dissection in the region of the triangle of Calot revealed the cystic duct and cystic artery. The neck tore slightly. Spilled some bile and a few stones. We carefully isolated the cystic duct and cystic artery and dissected the posterior aspect of the gallbladder from the gallbladder fossa. Firefly was used to confirm proper anatomy visualization throughout the case. There were only 2 structures noted, the cystic duct and the cystic artery. We placed 2 clips on the stay side of the cystic duct and 1 clip on the gallbladder side and the cystic duct was divided. We placed 2 clips on the stay side of the cystic artery, 1 clip on the gallbladder side and the cystic artery was divided. Prior to amputating the gallbladder, we again re-evaluated our clip structures, there was no evidence of bleeding or bilious extravasation. Hook electrocautery was used to remove the gallbladder from the gallbladder fossa. Gallbladder was then placed in an endocatch bag. The abdomen was then desulflated and cannulas removed. Robotic arms undocked and bag removed through epigastric port site and this fascia was then closed with transfascial vicryl suture. The wounds were irrigated and the skin incisions closed with interrupted 4-0 Vicryl subcuticular sutures. Benzoin, steri strips, and sterile dressings were applied. The sponge and needle count were correct. The patient tolerated the procedure well and was sent to PACU in stable condition. Philip Doran M.D., [facility]10-14-2021 Hospital Discharge instructions* Instructions* Phuong Saunders RN - 09/04/2021 IF YOU USE A CPAP MACHINE OR RESCUE INHALER AT HOME PLEASE BRING THESE ITEMS WITH YOU THE DAY OF SURGERY. MEDICATION INSTRUCTIONS PRIOR TO SURGERY PLEASE BRING PROVIDED LIST BACK WITH YOU THE DAY OF SURGERY WITH DATE/TIME LAST DOSE OF MEDICATIONSTAKEN. HOLD MELOXICAM FOR 3 DAYS PRIOR TO SURGERY 09/07 HOLD GLIMERPIRIDE AND METFORMIN THE MORNING OF SURGERY HOLD IBUPROFEN FOR 24 HOURS PRIOR TO SURGERY MAY TAKE TYLENOL FOR PAIN UP UNTIL AM OF SURGERY NO MEDICATION NEEDS TO BE TAKEN AM OF SURGERY During pre-admission testing appointment, patient instructed on the following To arrive 2 hours prior to scheduled surgery Upon arrival, stop in registration past the main entrance and provide them with a photo id and a medical card if they have one After registration, come to the same day surgery department, stopping at the main desk They need to have made arrangements for a ride home following surgery and a phone number will need to be provided before going back to the operating room. If public transportation is being used, pt made aware that they need to have a responsible adult accompany them. They need to make arrangements for someone to stay with them after they get home from surgery. Leave all jewelry, contacts and valuables at home Wear loose comfortable clothing to go home in Which medications need to be held and taken prior to surgery Bring in the medication list provided for them and write in the date/time last dose was taken No food (including candy, gum and mints) the day of surgery They may have clear liquids ( water, black coffee/no liquid or powder creamer, clear tea, clear fruit juices/no pulp and carbonated beverages) up until 2 hours prior to surgery Do not drink alcohol, use recreational drugs or smoke/use nicotine products 24 hours prior to surgery. Encouraged to write down any questions they may have for the surgeon, anesthesiologist or any member of the surgical team, and to bring list of questions in with them During the pre-admission testing appointment, this nurse reviewed and provided patient with The taking care of yourself after surgery paper ERAS paper Smoking Cessation Assistance paper (if a positive smoker) Pamphlets for Billing information for anesthesia patients, Prescription Opioids and Pharmacy care Preparing for your surgical procedure pamphlet After visit Summary with medication list and medication instructions Prior to end of PAT appointment, pt acknowledged understanding of information and instructions provided in preparation of upcoming surgery. * Attachments The following attachments cannot be sent through Care Everywhere. * Cholecystectomy: Post-op ([place]) * Cholecystectomy: Pre-op ([place]) documented [facility] Work Phone: [phone] Hospital Discharge instructions* Instructions* Demetrio Luu MD - 03/08/2021 Follow-up with your regular medical doctor, follow-up with the waitstaff captain you have been referred to as well, return to the ER if have worsening symptoms including pain fever redness or swelling of your shoulder or you develop chest pain shortness of breath or any new or unusual symptoms * Attachments The following attachments cannot be sent through Care Everywhere. * Chest Pain ([place]i) * Shoulder Pain ([place]i) * Joint Pain ([place]) documented in this encounterSUMMA Work Phone: Consult note Author Sherice Ortiz [facility] Note Date/Time February 05, 2025 8:4 2am [facility] Medical Records Department [address] [place] [address] Anesthesia Postop Eval I 02/05/25 0804 MR#: [id number] Acct: [id number] Name: LEONEL LAKE Rep #:[id number] : 1985 39 From: Sherice Ortiz CRNA PCP: PAUL BriscoeC Status:RE G SDC Y Race: C Location: [place] [address] Anesthesia: Postop Eval I Current Vital Signs Temperature: 97 F Pulse Rate: 72 Blood Pressure: 122/72 Respiratory Rate: 14 Pulse Ox: 93 Oxygen Delivery Method: Room Air Assessment Airway patent: Yes Spontaneous unlabored respirations: Yes Mental status: Awake nausea: No Vomiting: No Anesthesia Complication: No Fluid Hydration Crystalloid volume administer (ml): 250 Total IV fluid infused: 250 Progress Note Anesthesia document: Postop Eval 1 completed: Yes 02/05/25 08 <Electronically signed by Sherice kaplan CRNA> Date _ Sherice Ortiz CRNA Cosigner Signature: Date CC: ~ Signed [facility] Work Phone: Evaluation + Plan note Future Appointments Appointment Date:10/22/2021 11:00:00 AM Scheduled Provider:ADRIÁN COREY Location:[facility] Appointment Type:MANDY MATH TEACHER [facility] Evaluation + Plan note Future Appointments Appointment Date:01/20/2022 11:00:00 AM Scheduled Provider:ADRIÁN COREY Location:[facility] Appointment Type:PC OV Appointment Date:01/23/2022 10:00:00 AM Scheduled Provider: Location:[facility] Appointment Type:DB Diabetic Individual Visit Future Scheduled Tests Laboratory* Complete Metabolic Panel 10/22/21 [facility] Evaluation + Plan note Future Appointments Appointment Date:01/20/2022 11:00:00 AM Scheduled Provider:ADRIÁN COREY Location:[facility] Appointment Type:PC OV Appointment Date:01/23/2022 10:00:00 AM Scheduled Provider: Location:[facility] Appointment Type:DB Diabetic Individual Visit Diagnostic Tests Pending * TB Quantiferon, Incubated 01/07/22 Future Scheduled Tests Laboratory* Complete Metabolic Panel 10/22/21 [facility] Evaluation + Plan note Future Appointments Appointment Date:08/13/2022 09:30:00 AM Scheduled Provider:SYEDA MCGARRY Location:[facility] Appointment Type: OV Future Scheduled Tests Laboratory* A1C Hemoglobin 03/06/22 * Lipid Profile 03/06/22 * Complete Metabolic Panel 03/06/22 * Complete Metabolic Panel 10/22/21 [facility] Evaluation + Plan note Future Appointments Appointment Date:02/12/2023 09:00:00 AM Scheduled Provider:WANDA MATA Location:[facility] Appointment Type: OV Appointment Date:02/12/2023 10:00:00 AM Scheduled Provider: Location:[facility] Appointment Type:DB Diabetic Individual Visit (AOH) Diagnostic Tests Pending * TB Quantiferon, Incubated 01/14/23 Future Scheduled Tests Laboratory* A1C Hemoglobin 03/06/22 * Complete Blood Count 02/10/23 * Lipid Profile 03/06/22 * Lipid Profile 02/10/23 * Complete Metabolic Panel 03/06/22 * Complete Metabolic Panel 02/10/23 [facility] Evaluation + Plan note Future Appointments Appointment Date:08/13/2023 10:00:00 AM Scheduled Provider: Location:[facility] Appointment Type:DB Diabetic Individual Visit (AOH) Future Scheduled Tests Laboratory* Complete Blood Count 02/12/23 * Albumin/Creatinine Ratio, Random Urine 02/12/23 [facility] Evaluation + Plan note Future Appointments Appointment Date:10/13/2023 10:00:00 AM Scheduled Provider: Location:[facility] Appointment Type:DB Diabetic Individual Visit (AOH) Future Scheduled Tests Laboratory* Complete Blood Count 02/12/23 * Albumin/Creatinine Ratio, Random Urine 02/12/23 [facility] evaluation + Plan note Future Appointments Appointment Date:09/28/2023 10:00:00 AM Scheduled Provider:FABIAN CONDE Location:[facility] Appointment Type:CV OV Appointment Date:10/13/2023 10:00:00 AM Scheduled Provider: Location:[facility] Appointment Type:DB Diabetic Individual Visit (AOH) Diagnostic Tests Pending * Apolipoprotein B 09/02/23 * Lipoprotein (a) 09/02/23 Future Scheduled Tests Laboratory* Albumin/Creatinine Ratio, Random Urine 02/12/23 [facility] evaluation + Plan note Future Appointments Appointment Date:09/28/2023 10:00:00 AM Scheduled Provider:FABIAN CONDE Location:[facility] Appointment Type:CV OV Appointment Date:10/13/2023 10:00:00 AM Scheduled Provider: Location:[facility] Appointment Type:DB Diabetic Individual Visit (AOH) Future Scheduled Tests Laboratory* Albumin/Creatinine Ratio, Random Urine 02/12/23 [facility] evaluation + Plan note Future Appointments Appointment Date:10/13/2023 10:00:00 AM Scheduled Provider: Location:[facility] Appointment Type:DB Diabetic Individual Visit (AOH) Appointment Date:12/29/2023 10:30:00 AM Scheduled Provider:FABIAN CONDE Location:[facility] Appointment Type:CV OV Future Scheduled Tests Laboratory* Albumin/Creatinine Ratio, Random Urine 02/12/23 [facility] evaluation + Plan note Future Appointments Appointment Date:12/29/2023 10:30:00 AM Scheduled Provider:FABIAN CONDE Location:[facility] Appointment Type:CV OV Appointment Date:04/12/2024 10:00:00 AM Scheduled Provider: Location:[facility] Appointment Type:DB Diabetic Individual Visit (AOH) Future Scheduled Tests Laboratory* Albumin/Creatinine Ratio, Random Urine 02/12/23 [facility] Evaluation + Plan note Future Appointments Appointment Date:12/27/2023 11:30:00 AM Scheduled Provider:WANDA MATA Location:[facility] Appointment Type:PC Wellness Annual Appointment Date:12/29/2023 10:30:00 AM Scheduled Provider:FABIAN CONDE Location:[facility] Appointment Type:CV OV Appointment Date:04/12/2024 10:00:00 AM Scheduled Provider: Location:[facility] Appointment Type:DB Diabetic Individual Visit ([facility]) Diagnostic Tests Pending * QFT-TB Plus (Client [facility]) 12/15/23 Future Scheduled Tests Laboratory* Albumin/Creatinine Ratio, Random Urine 02/12/23 [facility] evaluation + Plan note Future Appointments Appointment Date:01/03/2024 11:15:00 AM Scheduled Provider:FABIAN CONDE Location:[facility] Appointment Type:CV OV Appointment Date:04/12/2024 10:00:00 AM Scheduled Provider: Location:[facility] Appointment Type:MEDS - Diabetic Individual Visit Future Scheduled Tests Laboratory* Albumin/Creatinine Ratio, Random Urine 12/27/23 [facility] evaluation + Plan note Future Appointments Appointment Date:04/12/2024 10:00:00 AM Scheduled Provider: Location:[facility] Appointment Type:MEDS - Diabetic Individual Visit Future Scheduled Tests Laboratory* Albumin/Creatinine Ratio, Random Urine 12/27/23 [facility] evaluation + Plan note Future Appointments Appointment Date:07/21/2024 10:00:00 AM Scheduled Provider: Location:[facility] Appointment Type:MEDS - Diabetic Individual Visit Appointment Date:10/05/2024 10:00:00 AM Scheduled Provider:FABIAN CONDE Location:[facility] Appointment Type:CV OV Future Scheduled Tests Laboratory* Albumin/Creatinine Ratio, Random Urine 12/27/23 [facility] Evaluation + Plan note Future Appointments Appointment Date:08/14/2024 02:00:00 PM Scheduled Provider:WANDA MATA Location:[facility] [place] Appointment Type:PC OV Appointment Date:10/05/2024 10:00:00 AM Scheduled Provider:FABIAN CONDE Location:[facility] Appointment Type:CV OV Appointment Date:10/18/2024 09:30:00 AM Scheduled Provider: Location:[facility] Appointment Type:MEDS - Diabetic Individual Visit Future Scheduled Tests Laboratory* Albumin/Creatinine Ratio, Random Urine 12/27/23 [facility] Evaluation + Plan note Future Appointments Appointment Date:08/14/2024 02:00:00 PM Scheduled Provider:WANDA MATA Location:[facility] Appointment Type:PC OV Appointment Date:10/05/2024 10:00:00 AM Scheduled Provider:FABIAN CONDE Location:[facility] Appointment Type:CV OV Appointment Date:10/18/2024 09:30:00 AM Scheduled Provider: Location:[facility] Appointment Type:MEDS - Diabetic Individual Visit Diagnostic Tests Pending * QFT-TB Plus (Client Incubated) 08/04/24 Future Scheduled Tests Laboratory* Albumin/Creatinine Ratio, Random Urine 12/27/23 [facility] Evaluation + Plan note Future Appointments Appointment Date:04/18/2025 10:00:00 AM Scheduled Provider:FABIAN CONDE Location:[facility] Appointment Type:CV OV Appointment Date:04/19/2025 10:00:00 AM Scheduled Provider: Location:[facility] Appointment Type:MEDS - Diabetic Individual Visit [facility] evaluation + Plan note Future Appointments Appointment Date:06/07/2025 10:00:00 AM Scheduled Provider: Location:[facility] Appointment Type:MEDS - Diabetic Individual Visit Appointment Date:10/17/2025 11:00:00 AM Scheduled Provider:FABIAN CONDE Location:[facility] Appointment Type:CV OV Future Scheduled Tests Radiology* CT Coronary Angiography w+w/o Contrast 04/18/25 * CT Coronary Extracardiac 04/18/25 [facility] Evaluation + Plan note Future Appointments Appointment Date:07/11/2025 09:00:00 AM Scheduled Provider: Location:[facility] Appointment Type:MEDS - Diabetic Individual Visit Appointment Date:10/17/2025 11:00:00 AM Scheduled Provider:FABIAN CONDE Location:[facility] Appointment Type:CV OV Future Scheduled Tests Radiology* CT Coronary Angiography w+w/o Contrast 04/18/25 * CT Coronary Extracardiac 04/18/25 [facility] evaluation + Plan note Future Appointments Appointment Date:08/01/2025 05:00:00 PM Scheduled Provider:WANDA MATA Location:[facility] Appointment Type:PC OV Appointment Date:08/08/2025 09:00:00 AM Scheduled Provider: Location:[facility] Appointment Type:MEDS - Diabetic Individual Visit Appointment Date:10/17/2025 11:00:00 AM Scheduled Provider:FABIAN CONDE Location:[facility] Appointment Type:CV OV Diagnostic Tests Pending * QFT-TB Plus (Client Incubated) 07/20/25 Future Scheduled Tests Radiology* CT Coronary Angiography w+w/o Contrast 04/18/25 * CT Coronary Extracardiac 04/18/25 [facility] Evaluation + Plan note Future Appointments Appointment Date:08/08/2025 09:00:00 AM Scheduled Provider: Location:[facility] Appointment Type:MEDS - Diabetic Individual Visit Appointment Date:08/22/2025 11:00:00 AM Scheduled Provider:LEONEL MEYER MD Location:[facility] [place] Appointment Type:PC OV Appointment Date:10/17/2025 11:00:00 AM Scheduled Provider:FABIAN CONDE Location:[facility] Appointment Type:CV OV Future Scheduled Tests Radiology* CT Coronary Angiography w+w/o Contrast 04/18/25 * CT Coronary Extracardiac 04/18/25 [facility] Evaluation note* Diagnosis Left shoulder pain, unspecified chronicity- Primary Chest pain, unspecified type [facility] Work [facility]: [facility] note* Diagnosis Acute pain of left knee Pain and swelling of left shoulder documented in this encounter [facility] Work Phone: Evaluation note* Diagnosis Pain in central left upper extremity Elevated LFTs Other abnormal blood chemistry documented in [facility] Work Phone: Evaluation note* Diagnosis Calculus of gallbladder without cholecystitis without obstruction- Primary Calculus of gallbladder without mention of cholecystitis or obstruction Hyperglycemia Other abnormal glucose documented in this encounter [facility] Work Phone: Evaluation note* Diagnosis Biliary colic- Primary Calculus of gallbladder without mention of cholecystitis or obstruction documented [facility] Work Phone: Evaluation note* Diagnosis Chest pain, unspecified type- Primary documented in this encounter [facility] Work Phone: Evaluation note* Diagnosis Nausea- Primary Nausea alone Diarrhea, unspecified type documented in this encounter [facility] Work Phone: Evaluation noteNo assessment information available [facility] Work Phone: Evaluation note* Diagnosis Pain of left hand- Primary documented [facility]* Diagnosis Chest pain, unspecified type- Primary documented in this encounter [facility]* Diagnosis Finger pain, left- Primary Pain in soft tissues of limb documented in this encounter [facility] course Narrative No data available for this section [facility] Hospital Discharge instructions* Instructions* Rafael Ring MD - 09/02/2021 Please keep your follow-up with the surgeon as scheduled. Return for any worsening or worrisome symptoms without fail. [facility] Work Phone: Hospital Discharge instructions* Instructions* Jose, Philip, MD - 09/11/2021 POST-OPERATIVE INSTRUCTIONS LAPAROSCOPIC/ROBOTIC SURGERY Thank you very much for allowing me to participate in your care, it is truly a privilege. Below please see discharge orders that will help you during your recovery. Please do not hesitate to call theoffice at [phone] for any questions. After hours, the same number will allow you to reach the on-call surgeon. ? Call the office to schedule your post-operative appointment with Dr. Doran or PA/MATH TEACHER for 2 weeks if not already scheduled. o (May need to be seen before 2 weeks if stitches and/or drains present) ? Change bandages daily or more frequently if needed. o Keep incisions clean with soap/ water daily. (Peroxide OK as well) o Cover incision(s) as needed. o Please remove the Steri-Strips as instructed 5 days after your date of surgery, they will not fall off on their own. This includes any clear bandages and gauze placed in the navel, if applicable. o If you have skin glue this will come off on its own ? May place an ice pack over your incisions on and off (15min) at a time for the next 24-48 hours. ? Resume regular diet as tolerated (recommend starting with liquids) ? General guidelines for activity: Avoid strenuous activity or lifting anything heavier than 15 pounds. It is OK to be up and walking around. Going up and down stairs is also OK. Do what is comfortable: stop and rest when you feel tired. It is OK to shower after 24 hours ? You will have pain medicine ordered. Take as directed/needed. ? Some discomfort, mild bruising, and swelling are not unusual; please call my office if you have any severe pain, hemorrhage, or high fever (over 101 F) ? During the laparoscopic procedure that you had, gas is pumped into the abdominal cavity. You may feel abdominal, shoulder, or rib pain for a few days due to this. ? Resume home medications (see medication reconciliation sheet) ? Do NOT drive for one day and while taking your narcotic pain medicine. ? Watch for signs of infection: Excessive warmth or bright redness around your incisions Leakage of bloody or cloudy fluid from you incisions Fever over 100.5 ? If you experience constipation o Increase your water intake. o Increase your activity; walking is best. o An over the counter stool softener or mild laxative may be necessary if you still have not had a bowel movement after several days. Please call the office at [phone] for any questions and too make your post op appointment if needed. Thank you again for allowing me to participate in your care, and get well soon! Philip Doran MD FACS documented in this [facility] Work Phone: Hospital Discharge instructions No data available for this section [facility] Hospital Discharge instructions* Attachments The following attachments cannot be sent through Care Everywhere. * Hand Pain ([place]) documented in this [facility] Discharge instructions* Attachments The following attachments cannot be sent through Care Everywhere. * Chest Pain Discharge Instructions ([place]) * Tips to Help You Worry Less ([place]) documented in this [facility] note No data available for this section [facility] Reason for referral (narrative)No reason for referral information availableWChildren[facility] Work Phone: Summary Purpose Family History No Family History Records FoundNo Family History Records FoundNo Family History Records Found No data available for this section No data available for this section No data available for this section No data available for this section No data available for this section No data available for this section No data available for this section No data available for this section No data available for this section No Family History Records Found No data available for this section No Family History Records Found No data available for this section No data available for this section No data available for this section No data available for this section No data available for this section No data available for this section No data available for this section No Family History Records FoundNo Family History Records Found Advance Directives No Advanced Directives Records FoundDocuments on File Type Date Recorded Patient Box Loader Expl anation Advance Directives and Living Will Power of International Organizer Documents on File Type Date Recorded Patient Box Loader Expl anation ACP-Advance Directive ACP-Power of International Organizer Documents on File Type Date Recorded Patient Box Loader Expl anation ACP-Advance Directive ACP-Power of International Organizer Latest Code Status on File Code Status Date Activated Date Inactivated Comments Full Code 09/11/2021 7:25 AM Latest Code Status on File Code Status Date Activated Date Inactivated Comments Full Code 09/11/2021 7:25 AM 09/11/2021 1:30 PM Latest Code Status on File Code Status Date Activated Date Inactivated Comments Full Code 09/11/2021 7:25 AM 09/11/2021 1:30 PM Advance Directive Response Recorded Date/ Time Advance Directives No April 13 6 7:50am Living Will No April 23, 2018 6 :12pm Power of International Organizer No April 23, 2018 6:12pm Advance Directive Response Recorded Date/ Time Advance Directives No April 13 6 8:50am Living Will No April 23, 2018 7 :12pm Power of International Organizer No April 23, 2018 7:12pm Advance Directive Response Recorded Date/ Time Advance Directives No April 13 8:50am Discharge Instructions * Instructions* Jsaon Jarrett MD - 12/27/2019 Hold abilify till symptoms resolve * Attachments The following attachments cannot be sent through Care Everywhere. 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 TEACHER [address] [facility] [place] [address] [place] [address] Status Reason Specialty Diagnoses / Procedures Referre d By Contact Referred To Contact Open Radiology Diagnoses Elevated LFTs Procedures US ABDOMEN LIMITED Long Gonzalez, DO [address] [place] [address] Status Reason Specialty Diagnoses / Procedures Referre d By Contact Referred To Contact Closed Radiology Diagnoses Pain in central left upper extremity Procedures MRI CERVICAL SPINE WO CONTRAST Long Gonzalez, DO [address] [place] [address] Specialty Diagnoses / Procedures Referred By Galindo t Referred To Contact Cardiology Diagnoses Chest pain, unspecified type Jason Jarrett MD [address] [place] [address] [facility] [address] [place] [address] Referral ID Status Reason Start Date Expiration Date V isits Requested Visits Authorized [id number] Open Specialty Services Required 01/20/2022 01/20/2023 1 1 Scheduling Instructions [facility] [address] [place] [address] Chief Complaint and Reason for Visit Chief Complaint Admit Date CHEST PAIN May 23, 2025 12:13 pm CHEST PAIN May 23, 2025 5:25p m Additional Source Comments (unrecognized sect ion and content) No Status Records FoundNo Status Records FoundNo Status Records FoundNo Status Records FoundNo Status Records FoundNo Status Records FoundNo Status Records Found INFORMATION SOURCE (unrecogn ized section and content) DATE CREATED AUTHOR 02/27/2019 [facility] DATE CREATED AUTHOR AUTHOR'S ORGANIZ ATION 03/01/2019 [facility] DATE CREATED AUTHOR AUTHOR'S ORGANIZ ATION 05/08/2022 [facility] DATE CREATED AUTHOR AUTHOR'S ORGANIZ ATION 07/21/2024 [facility] ([place]) DATE CREATED AUTHOR AUTHOR'S ORGANIZ ATION 09/25/2024 [facility] DATE CREATED AUTHOR AUTHOR'S ORGANIZ ATION 08/04/2025 [facility] DATE CREATED AUTHOR AUTHOR'S ORGANIZ ATION 08/05/2025 [facility] Reason for Visit (unrecogniz ed section and content) Reason Comments Shoulder Pain left shoulder pain x 2 weeks Reason Comments Shoulder Pain Left , states starte d 2 days ago Chest Pain Midsternal area 2 hr s ago Reason Comments Abdominal Pain Reason Comments Chest Pain Reason Comments Emesis Reason Comments Hand Pain Reason Comments Chest Pain L sided CP that radi ates to L shoulder blade. +nausea, denies SOB with this CP. CP started late afternoon yesterday. Denies hx of stroke or heart attack Reason Comments Hand Pain Denies injury Ordered Prescriptions (unrec ognized section and content) Prescription Sig Dispensed Refills Start Date End Da te naproxen (NAPROSYN) 500 MG tablet Take 1 tablet by mouth 2 times daily 20 tablet 0 03/08/2021 Prescription Sig Dispensed Refills Start Date End Da te ondansetron (ZOFRAN) 4 MG tablet Take 1 tablet by mouth every 8 hours as needed for Nausea 20 tablet 0 09/02/2021 HYDROcodone-acetaminophen (NORCO) 5-325 MG per tabletIndications:Calculu s of gallbladder without cholecystitis without obstruction Take 1-2 tablets by mouth every 4 hours as needed for Pain for up to 5 days. 20 tablet 0 09/02/2021 09/07/2021 Prescription Sig Dispensed Refills Start Date End Da te oxyCODONE-acetaminophen (PERCOCET) 5-325 MG per tabletIndications:Biliary colic Take 1 tablet by mouth every 6 hours as needed for Pain for up to 5 days. 10 tablet 0 09/11/2021 09/16/2021 Prescription Sig Dispensed Refills Start Date End Da te aspirin EC 81 MG EC tablet Take 1 tablet by mouth daily 30 tablet 0 01/20/2022 02/19/2022 Prescription Sig Dispensed Refills Start Date End Da te ondansetron (ZOFRAN-ODT) 4 MG disintegrating tablet Take 1 tablet by mouth 3 times daily as needed for Nausea or Vomiting 21 tablet 0 05/07/2022 Scheduled Active and Recently Administ ered Medications (unrecognized section and content) Medication Order 08/31/2021 09/01/2021 09/02/2021 0.9 % sodium chloride bolus (COMPLETED) 1,000 mL (10.8 mL/kg), IntraVENous, at 2,000 mL/hr, Administer over 0.5 Hours, ONCE, On Wed09/02/21 at 1122, For 1 dose 1150 (New Bag - Prov ider: Monica Morales RN)1225 (Stopped - Provider: Monica Morales RN) morphine injection 6 mg (COMPLETED) 6 mg, IntraVENous, ONCE, On Wed09/02/21 at 1122, For 1 dose 1149 (Given - Provid er: Monica Morales RN) ondansetron (ZOFRAN) injection 4 mg (COMPLETED) 4 mg, IntraVENous, ONCE, On Wed09/02/21 at 1122, For 1 dose 1149 (Given - Provid er: Moncia Morales RN) sodium chloride flush 0.9 % injection 3 mL(Linked Group 1) 3 mL, IntraVENous, EVERY 8 HOURS, First dose on Wed09/02/21 at 1122, Flush line with 3-5 mL 1149 (Given - Provid er: Monica Morales RN)1922 (Due) Linked Groups Order Group 1: Saline lock IV (COMPLETED) Routine, CONTINUOUS, Starting on Wed09/02/21 at 1130, Until Specified And sodium chloride flush 0.9 % injection 3 mLJump to med 3 mL, IntraVENous, EVERY 8 HOURS, First dose on Wed09/02/21 at 1122
Flush line with 3-5 mL
Scheduled Medication Order 09/09/2021 09/10/2021 09/11/2021 acetaminophen (TYLENOL) tablet 1,000 mg (COMPLETED) 1,000 mg, Oral, ONCE, On Mica 09/11/21 at 0745, For 1 dose, Maximum dose of acetaminophen is 4000 mg from all sources in 24 hours. Do not administer if patient has taken tylenol <4 hours earlier. Do not give if contraindicated ie. patient has active liver disease or cirrhosis., Pre-op (day of surgery) 0756 (Given - Provid er: Ellie Ryan RN) ceFAZolin (ANCEF) 2000 mg in dextrose 5 % 100 mL IVPB (COMPLETED) 2,000 mg, IntraVENous, HAZARD MITIGATION OFFICER TO O.R., 1 dose, On Mica 09/11/21 at 0745, Administer within 1 hour prior to incision. Recommend to repeat in 3-4 hours after initial dose if still intra-op., Pre-op (day of surgery) 0839 (Given by Other Clinician - Provider: Vijaya Menjivar RN) dimenhyDRINATE (DRAMAMINE) tablet 100 mg (COMPLETED) 100 mg, Oral, ONCE, On Mica 09/11/21 at 0745, For 1 dose, Pre-op (day of surgery) 0756 (Given - Provid er: Ellie Ryan RN) famotidine (PEPCID) tablet 20 mg (COMPLETED) 20 mg, Oral, ONCE, On Mica 09/11/21 at 0745, For 1 dose, Pre-op (day of surgery) 0756 (Given - Provid er: Ellie Ryan RN) gabapentin (NEURONTIN) capsule 100 mg (COMPLETED) 100 mg, Oral, ONCE, On Mica 09/11/21 at 0745, For 1 dose, For Age >69, or Low GFR, Pre-op (day of surgery) 0756 (Given - Provid er: Ellie Ryan RN) indocyanine green (IC-GREEN) syringe 2.5 mg (COMPLETED) 2.5 mg, IntraVENous, ONCE, On Mica 09/11/21 at 0745, For 1 dose, Administer 45-60 min preop then Flush dye from catheter with NS to prevent hemolysis., Pre-op (day of surgery) 0754 (Given - Provid er: Ellie Ryan RN) sodium chloride flush 0.9 % injection 5-40 mL 5-40 mL, IntraVENous, EVERY 12 HOURS SCHEDULED (2 times per day), First dose on Mica 09/11/21 at 0900, For Line Patency: Peripheral IV = 5 mL; Midline or Central Line = 10 mL/lumen. If following IV push medication, administer flush at same rate as the IV push. Flush volume is determined by type of infusion therapy being given. For non-viscous solutions use: Peripheral IV = 5 mL Midline or Central Line = 10 mL/lumen For viscous solutions (i.e. blood components, parenteral nutrition, contrast media, or after obtaining blood sample) use: Peripheral IV = 10 mL Midline or Central Line = 20 mL/lumen, Pre-op (day of surgery) 0900 (Due)2100 (Due) Continuous Medication Order 09/09/2021 09/10/2021 09/11/2021 lactated ringers infusion IntraVENous, at 50 mL/hr, CONTINUOUS, Starting on Mica 09/11/21 at 0745, Upon admission to sameday - please start iv if patient does not have iv access. Use 500ml NS for patients on dialysis., Pre-op (day of surgery) 0756 (New Bag - Prov ider: Ellie Ryan RN) PRN Medication Order 09/09/2021 09/10/2021 09/11/2021 0.9 % sodium chloride bolus 500 mL (4.44 mL/kg), IntraVENous, at 500 mL/hr, Administer over 1 Hours, ONCE PRN, Nausea, Starting on Mica 09/11/21 at 1015, For 1 dose, Use caution in patients with a diagnosis of Heart failure or Kidney failure., PACU only 0.9 % sodium chloride infusion 25 mL, IntraVENous, at 100 mL/hr, PRN, If patient receiving piggyback infusions without ordered maintenance IV fluids or with frequent/long duration piggyback infusions, Starting on Mica 09/11/21 at 0725, Administer at the same rate as the piggyback being infused., Pre-op (day of surgery) ALPRAZolam (NIRAVAM) dissolvable tablet 0.25 mg 0.25 mg, Oral, PRN, Anxiety, Starting on Mica 09/11/21 at 0725, Pre-op (day of surgery) dextrose 5 % solution 100 mL/hr, IntraVENous, at 100 mL/hr, PRN, Low blood sugar, Starting on Mica 09/11/21 at 1022, Start infusion following administration of dextrose 50% or glucagon. dextrose 50 % IV solution 12.5 g, IntraVENous, PRN, Low blood sugar, Blood glucose less than 70 mg/dL and patient NOT ALERT or NPO., Starting on Mica 09/11/21 at 1022, If patient does not respond within 5 minutes, repeat dose x1. Start D5W at 100 mL/hour until ordering provider can be reached. Repeat blood glucose in 15 minutes. If blood glucose is less than 70 mg/dL, repeat treatment and recheck blood glucose in 15 minutes x2. If using Glucostabilizer, dose as instructed per system. diphenhydrAMINE (BENADRYL) injection 12.5 mg 12.5 mg, IntraVENous, ONCE PRN, Itching, Starting on Mica 09/11/21 at 1015, For 1 dose, PACU only glucagon (rDNA) injection 1 mg 1 mg, IntraMUSCular, PRN, Low blood sugar, Blood glucose less than 70 mg/dL and patient NOT ALERT or NPO and does not have IV access., Starting on Mica 09/11/21 at 1022, After administration, attempt intravenous access and start D5W at 100 mL/hr. Repeat blood glucose in 15 minutes x2 and notify provider. glucose (GLUTOSE) 40 % oral gel 15 g 15 g, Oral, PRN, Low blood sugar, Starting on Mica 09/11/21 at 1022, If blood glucose less than 50 mg/dL and patient ALERT and TOLERATING PO, give 2 tubes glucose gel. If blood glucose less than 70 mg/dL and patient ALERT and TOLERATING PO, give 1 tube glucose gel. Repeat blood glucose in 15 minutes. If blood glucose is less than 70 mg/dL, repeat treatment and recheck blood glucose in 15 minutes x2 and notify provider. hydrALAZINE (APRESOLINE) injection 5 mg 5 mg, IntraVENous, EVERY 10 MIN PRN, High Blood Pressure, Starting on Mica 09/11/21 at 1015, PRN for SBP > 160 for 2 consecutive measurements, and if one of the following conditions is met: 1) If IV labetolol is ineffective. 2) If HR is under 60. 3) If patient has heart block, COPD or asthma. If both labetalol and hydralazine ineffective, notify anesthesiologist., PACU only HYDROmorphone (DILAUDID) injection 0.25 mg 0.25 mg, IntraVENous, EVERY 5 MIN PRN, Pain Moderate (4-6), Starting on Mica 09/11/21 at 1015, For 4 doses, Phase I and Phase II- Initial therapy for moderate pain (4-6). Restricted to a 50 minute time frame starting when the patient can verbally state their pain score. If secondary medications are utilized, do not return to initial therapy medications. SDS and, PACU only HYDROmorphone (DILAUDID) injection 0.25 mg 0.25 mg, IntraVENous, EVERY 5 MIN PRN, Pain Moderate (4-6), Starting on Mica 09/11/21 at 1015, For 4 doses, Phase I - Secondary therapy to be used after initial therapy medication doses are ineffective . If secondary medications are utilized, do not return to initial therapy medications., PACU only HYDROmorphone (DILAUDID) injection 0.5 mg 0.5 mg, IntraVENous, EVERY 5 MIN PRN, Pain Severe (7-10), Starting on Mica 09/11/21 at 1015, For 4 doses, Phase I or Phase II- Initial therapy for severe pain (7-10). Restricted to a 50 minute time frame starting when the patient can verbally state their pain score. If secondary medications are utilized, do not return to initial therapy medications. Sameday and, PACU only HYDROmorphone (DILAUDID) injection 1 mg 1 mg, IntraVENous, EVERY 5 MIN PRN, Pain Severe (7-10), Starting on Mica 09/11/21 at 1015, For 4 doses, Phase I - Secondary therapy to be used after initial therapy medication doses are ineffective. If secondary medications are utilized, do not return to initial therapy medications., PACU only insulin lispro (HUMALOG) injection vial 0-12 Units 0-12 Units, SubCUTAneous, PRN, Based on Glucose results, Starting on Mica 09/11/21 at 0725, For 3 doses, Corrective Low Dose Algorithm Glucose: Dose: If <180 No Insulin 181-240 4 Units 241-300 6 Units 301-350 8 Units 350-340 10 Units Over 400 12 Units, Pre-op (day of surgery) insulin lispro (HUMALOG) injection vial 0-12 Units 0-12 Units, SubCUTAneous, PRN, based on glucose results, Starting on Mica 09/11/21 at 1022, For 3 doses, Corrective Low Dose Algorithm Glucose: Dose: If <180 No Insulin 181-240 4 Units 241-300 6 Units 301-350 8 Units 350-340 10 Units Above 400 12 Units, PACU only 1040 (Given - Provid er: Vijaya Menjivar RN) labetalol (NORMODYNE;TRANDATE) injection 5 mg 5 mg, IntraVENous, EVERY 10 MIN PRN, High Blood Pressure, Starting on Mica 09/11/21 at 1015, PRN for SBP >160 for 2 consecutive measurements, if HR is 60 or greater. If beta sisi is contraindicated (HR less than 60, heart block, COPD or asthma) use hydralazine IV order., PACU only lidocaine PF 1 % injection 1 mL 1 mL, IntraDERmal, ONCE PRN, IV start, Starting on Mica 09/11/21 at 0725, For 1 dose, Pre-op (day of surgery) meperidine (DEMEROL) injection 12.5 mg 12.5 mg, IntraVENous, EVERY 5 MIN PRN, Shivering, , Starting on Mica 09/11/21 at 1015, May give every 5 minutes to max of 50mg., PACU only ondansetron (ZOFRAN) injection 4 mg 4 mg, IntraVENous, ONCE PRN, Nausea, Starting on Mica 09/11/21 at 1015, For 1 dose, Initial antiemetic therapy., PACU only oxyCODONE (ROXICODONE) immediate release tablet 5 mg (COMPLETED) 5 mg, Oral, PRN, Pain Moderate (4-6), Starting on Mica 09/11/21 at 1015, For 1 dose, PHASE II, PACU only 1105 (Given - Provid er: Vijaya Menjivar RN) promethazine (PHENERGAN) injection 6.25 mg 6.25 mg, IntraVENous, ONCE PRN, Nausea, Starting on Mica 09/11/21 at 1015, For 1 dose, Caution if used IV:Check IV site for infiltrate prior to and during administration. Secondary antiemetic therapy. For IV administration, dilute to 10ml with normal saline. Must be administered over at least 10 minutes., PACU only sodium chloride flush 0.9 % injection 5-40 mL 5-40 mL, IntraVENous, PRN, Line Care, Starting on Mica 09/11/21 at 0725, For Line Patency: Peripheral IV = 5 mL; Midline or Central Line = 10 mL/lumen. If following IV push medication, administer flush at same rate as the IV push. Flush volume is determined by type of infusion therapy being given. For non-viscous solutions use: Peripheral IV = 5 mL Midline or Central Line = 10 mL/lumen For viscous solutions (i.e. blood components, parenteral nutrition, contrast media, or after obtaining blood sample) use: Peripheral IV = 10 mL Midline or Central Line = 20 mL/lumen, Pre-op (day of surgery) Scheduled Medication Order 01/18/2022 01/19/2022 01/20/2022 aspirin chewable tablet 324 mg (COMPLETED) 324 mg, Oral, ONCE, On Wed01/20/22 at 1817, For 1 dose 1840 (Given - Provid er: Danita Cross RN) Scheduled Medication Order 05/05/2022 05/06/2022 05/07/2022 0.9 % sodium chloride bolus (COMPLETED) 1,000 mL (8.82 mL/kg), IntraVENous, at 983.6 mL/hr, Administer over 61 Minutes, ONCE, On Mica 05/07/22 at 1942, For 1 dose 1947 (New Bag - Prov ider: Monica Moralse, OMID)2048 (Stopped - Provider: Monica Morales, RN) ondansetron (ZOFRAN) injection 4 mg (COMPLETED) 4 mg, IntraVENous, ONCE, 1 dose, On Mica 05/07/22 at 1942 1947 (Given - Provid er: Monica Morales, OMID) Scheduled Medication Order 03/30/2024 03/31/2024 04/01/2024 aspirin chewable tablet 324 mg (COMPLETED) 324 mg, Oral, Once, On 04/01/24 at 0210, For 1 dose 0209 (Given - Provid er: Shereen Interiano RN) LORazepam (Ativan) injection 1 mg (COMPLETED) 1 mg, IntraVENous, Once, On 04/01/24 at 0210, For 1 dose, For IV doses dilute dose with 1ml NS. 0209 (Given - Provid er: Shereen Interiano RN) Care Teams (unrecognized sec tion and content) Dairy Frozen Manager Relationship Specialty Start Date End Date Long Gonzalez [address] [address] PCP - General Family Medicine 12/27/19 Dairy Frozen Manager Relationship Specialty Start Date End Date Long Gonzalez DO [address] [place] [address] PCP - General Family Medicine 12/27/19 Team Status: Active Member Role Status Dates Dr. Andrea Lazaro MD Family Provider Active Wanda Mata MATH TEACHER, MATH TEACHER-C Primary Care Provider Activ e Team Status: Inactive Member Role Status Dates Dr. Marc Aquino MD Attending Provider, Referring Provider Active Wanda Mata MATH TEACHER, MATH TEACHER-C Primary Care Provider Activ e Team Status: Inactive Member Role Status Dates Wanda Mata MATH TEACHER, MATH TEACHER-C Primary Care Provider Activ e Dr. Marc Aquino MD Attending Provider, Referring Provider Active Dairy Frozen Manager Relationship Specialty Start Date End Date Wanda Mata APRN - CNP [address] [place] [address] PCP - General Family Nurse Practitioner 08/27/23 Dairy Frozen Manager Relationship Specialty Start Date End Date Wanda Mata APRN - CNP [address] [place] [address] PCP - General Family Nurse Practitioner 08/27/23 Team Status: Inactive Member Role Status Dates Wanda Mata MATH TEACHER, MATH TEACHER-C Primary Care Provider, Refe rring Provider Active Dr. Marc Aquino MD Attending Provider Active Dairy Frozen Manager Relationship Specialty Start Date End Date Wanda Mata APRN - CNP [address] [place] [address] PCP - General Family Nurse Practitioner 08/27/23 Dairy Frozen Manager Relationship Specialty Start Date End Date Wanda Mata APRN - CNP [address] [place] [address] PCP - General Family Nurse Practitioner 08/27/23 Dairy Frozen Manager Relationship Specialty Start Date End Date Wanda Mata APRN - CNP [address] [place] [address] PCP - General Family Nurse Practitioner 08/27/23 Dairy Frozen Manager Relationship Specialty Start Date End Date Wanda Mata APRN - CNP [address] [place] [address] PCP - General Family Nurse Practitioner 08/27/23 Team Status: Active Member Role Status Dates Wanda Adolfo MATH TEACHER, MATH TEACHER-C Primary Care Provider Activ e Team Status: Inactive Member Role Status Dates Wanda Mata MATH TEACHER, MATH TEACHER-C Primary Care Provider Activ e Start: February 05, 2025 End: February 05, 2025 Dr. Marc Aquino MD Attending Provider Active Start: February 05, 2025 End: February 05, 2025 Dr. Marc Aquino MD Referring Provider Active Start: February 05, 2025 End: February 05, 2025 Team Status: Active Member Role/Relationship Status Dates Wanda Mata MATH TEACHER, MATH TEACHER-C Primary Care Provider Activ e Team Status: Inactive Member Role/Relationship Status Dates Wanda Mata MATH TEACHER, MATH TEACHER-C Primary Care Provider Activ e Start: February 05, 2025 End: February 05, 2025 Dr. Marc Aquino MD Attending Provider Active Start: February 05, 2025 End: February 05, 2025 Dr. Marc Aquino MD Referring Provider Active Start: February 05, 2025 End: February 05, 2025 Team Status: Inactive Member Role/Relationship Status Dates Wanda Mata MATH TEACHER, MATH TEACHER-C Primary Care Provider Activ e Start: May 23, 2025 End: May 23, 2025 Fabian Conde MATH TEACHER, MATH TEACHER-C Attending Provider Active Start: May 23, 2025 End: May 23, 2025 Fabianalexander Conde MATH TEACHER, MATH TEACHER-C Referring Provider Active Start: May 23, 2025 End: May 23, 2025 Team Status: Active Member Role/Relationship Status Dates Wanda Mata MATH TEACHER, MATH TEACHER-C Primary Care Provider Activ e Start: May 23, 2025 Fabian Fish MATH TEACHER, MATH TEACHER-C Referring Provider Active Start: May 23, 2025 Fabian Fish MATH TEACHER, MATH TEACHER-C Other Provider Active Star t: May 23, 2025 Dr. Mahesh Olivares MD Attending Provider Active S tart: May 23, 2025 Care Team (unrecognized sect ion and content) Personnel Name: SYEDA MCGARRY Address: Address: [address] [place] [id number]- Care Team Personnel Name: SYEDA MCGARRY Position: P4 Advanced Media Clerk Member Role: Primary Care Physician Address: Address: [address] [facility] [place] [place] [address]- Care Team Related Persons Name: STEWART ORTIZ Address: Home [address] [place], [place] [id number] FOR RECORDS PERTAINING TO PATIENTS WHO ARE OR HAVE BEEN ENROLLED IN A CHEMICAL DEPENDENCY/SUBSTANCEABUSE PROGRAM, SOME INFORMATION MAY BE OMITTED. This clinical summary was aggregated from multiple sources. Caution should be exercised in using it in the provision of clinical care. This summary normalizes information from multiple sources, and as a consequence, information in this document may materially change the coding, format and clinical context of patient data. In addition, data may be omitted in some cases. CLINICAL DECISIONS SHOULD BE BASED ON THE PRIMARY CLINICAL RECORDS. [facility] [employer] provides no warranty or guarantee of the accuracy or completeness of information in this document.
[2025-08-06 08:17] VITALS: BP 124/81; PULSE 80; RESP 16; TEMP 36.2; O2SAT 98; BMI 34.5
--- NOTE | 2025-08-06 09:17 | RAD_ITS ---
PROCEDURE: CERV SPINE 2 OR 3 VIEWS 08/06/2025 REASON FOR EXAM: CERVICAL EPIDURAL TECHNIQUE: Procedure Code: RADSPCL Modality: DX Procedure: CERV SPINE 2 OR 3 VIEWS COMPARISON: 02/05/2025. FINDINGS: Intraoperative fluoroscopy for a cervical epidural was performed. 6.5 seconds of fluoroscopic time. 2.80 mGy. See procedure report for full details. RAD/Cerv Spine 2 or 3 Views IMPRESSION: As above. Reading Location: [id number]
[2025-08-06 09:18] VITALS: BP 127/93; BP 140/90; O2SAT 96
--- NOTE | 2025-08-06 09:31 | OP.PCM_ITS ---
Operative Report (Standard) Operative Information Date of Procedure: 08/06/25 Pre-Operative Diagnosis: Cervical radiculopathy, cervical degenerative disc disease, cervical spinal stenosis Post-Operative Diagnosis: Cervical radiculopathy, cervical degenerative disc disease, cervical spinal stenosis Surgery/Procedure Performed: Cervical epidural steroid injection, interlaminar at C7-T1 under fluoroscopy guidance. funeral pre arrangement counselor: No Type of Anesthesia: Local RN Documented Start/Stop Times: Operation Date: 08/06/25 09:40 Case Time Into Pre-Op 08/06/25 07:58 Out of Pre-Op 08/06/25 09:05 Anesthesia Start 08/06/25 09:17 Into Room 08/06/25 09:17 Procedure Start 08/06/25 09:23 Procedure End 08/06/25 09:28 Anesthesia End 08/06/25 09:29 Out of Room 08/06/25 09:29 Procedure Start Time: 09:31 Procedure Stop Time: 09:31 Select all DRAINS/GRAFTS/IMPLANTS that apply: None Estimated Blood Loss: 0 Specimen collected: No Description of surgery: PREOPERATIVE DIAGNOSES: Cervical radiculopathy, cervical degenerative disc disease, cervical spinal stenosis POSTOPERATIVE DIAGNOSES:Cervical radiculopathy, cervical degenerative disc disease, cervical spinal stenosis PROCEDURE PERFORMED: Cervical epidural steroid injection, interlaminar at C7-T1 under fluoroscopy guidance. ANESTHESIA: Local. BLOOD LOSS: Minimal. COMPLICATIONS: None. DESCRIPTION OF PROCEDURE: History and physical of today was reviewed. Risks and benefits of the procedure were explained. The patient understood and agreed to proceed. Informed consent was obtained. IV inserted per routine protocol. The patient was taken to the operating room and placed in the prone position with a pillow positioned underneath the chest. The neck area was prepped and draped in a sterile fashion using iodine x3. Under fluoroscopy guidance on an AP view, the C7-T1 interlaminar space was identified. The skin and subcutaneous tissue was anesthetized with approximately 3 mL of 1% lidocaine using a 25-gauge regular needle. Under direct visualization on fluoroscopy, on AP view, using a 20-gauge 2-1/2-inch Tuohy needle, the needle was advanced via the skin. The tip of the needle was maneuvered and directed towards the interlaminar space at C7- T1. Loss of resistance technique was carried to air. Loss of resistance technique was encountered. Once encountered, after negative aspiration for blood and CSF, a total of 1 mL of contrast was injected to confirm correct placement of the needle as well as cephalocaudal spread of the contrast. Confirmation was obtained on AP as well as lateral view. After repeated negative aspiration and confirmation, a total of 3 mL of preservative-free normal saline and 80 mg of Depo-Medrol was injected easily. The needle was then removed intact. The patient experienced no sign or symptoms of intrathecal or intravascular injection. The patient experienced no paresthesia. The procedure was completed without any apparent difficulty or any complications. The patient appeared to tolerate it well. ASSESSMENT AND PLAN: This is a 39-year-old male with cervical radiculopathy, cervical degenerative disc disease, cervical spinal stenosis status post cervical epidural steroid injection interlaminar at C7-T1 under fluoroscopic guidance, patient will continue his current medications, patient will follow in approximately 2 weeks for reevaluation. Surgical Findings: 0 Complications Complications: No Admit VTE Documentation VTE Present on Admission: No VTE Mechan Device Prophylaxis: None VTE Pharm Prophylaxis ordered?: No
[2025-08-06 09:43] VITALS: BP 127/93; BP 128/81; PULSE 72; RESP 16; TEMP 36.4; O2SAT 96
== END 2025-08-06 09:56 | disposition home or self-care (01) ==
LOC: SDC 07:46 → AC 07:47
PROVIDERS: PCP Registered Nurse; Referring Provider Anesthesiology Pain Medicine; Visit Provider Anesthesiology Pain Medicine
PROC: 3E0S3BZ Introduction of Anesthetic Agent into Epidural Space, Percutaneous Approach (ICD-10-PCS; CPT 62320; principal; 2025-08-06 09:35)
DX: M48.02 Spinal stenosis, cervical region (principal); M50.10 Cervical disc disorder with radiculopathy, unspecified cervical region
CPT/HCPCS: 62321; 64490; 72040; 82962

== ENCOUNTER → 2025-08-20 | Outpatient (CLI) | payer MEDICAID, SELFPAY ==
--- OUTSIDE RECORDS SUMMARY | 2025-08-08 08:48 | XMS RPT_ITS ---
Author Name Auto Generated Organization OHIP Support Name Relationship Address Phone AFFRON STEWART Next of Kin [address] [place] [address] + AFFRON, STEWART Next of Kin [address] [place] [address] + AFFRON, STEWART Next of Kin [address] [place] [address] + AFFRON, STEWART Next of Kin [address] [place] [address] + AFFRON, STEWART Next of Kin [address] [place] [address] + AFFRON, STEWART Next of Kin [address] [place] [address] + AFFRON, STEWART Next of Kin [address] [place] [address] + AFFRON, STEWART Next of Kin [address] [place] [address] + AFFRON, STEWART Next of Kin [address] [place] [address] + AFFRON, STEWART Next of Kin [address] [place] [address] + AFFRON, STEWART Next of Kin [address] [place] [address] + AFFRON, STEWART Next of Kin [address] [place] [address] + AFFRON, STEWART Next of Kin [address] [place] [address] + AFFRON, STEWART Next of Kin [address] [place] [address] + AFFRON, STEWART Next of Kin [address] [place] [address] + AFFRON, STEWART Next of Kin [address] [place] [address] + AFFRON, STEWART Next of Kin [address] [place] [address] + AFFRON, STEWART Next of Kin [address] [place] [address] + AFFRON, STEWART Next of Kin [address] [place] [address] + AFFRON, STEWART Next of Kin [address] [place] [address] + AFFRON, STEWART Next of Kin Unknown [phone] AFFRON, STEWART Next of Kin Unknown [phone] Care Team Providers Care Electronics Hardware Design Engineer Name Role Phone KATINA BANERJEE MD Attending Unavail able ADOLFO BLOOD BANK WORKER-WRIST LINER, WANDA A Primary Care Un available ADOLFO BLOOD BANK WORKER-WRIST LINER, WANDA A Primary Care Un available ADOLFO BLOOD BANK WORKER-WRIST LINER, WANDA A Attending Un available ADOLFO BLOOD BANK WORKER-WRIST LINER, WANDA A Attending Un available ADOLFO BLOOD BANK WORKER-WRIST LINER, WANDA A Primary Care Un available SHIREEN IVERSON MD Attending Unavailable ADOLFO BLOOD BANK WORKER-WRIST LINER, WANDA A Primary Care Un available ADOLFO BLOOD BANK WORKER-WRIST LINER, WANDA A Attending Un available ADOLFO BLOOD BANK WORKER-WRIST LINER, WANDA A Primary Care Un available ADOLFO BLOOD BANK WORKER-WRIST LINER, WANDA A Attending Un available ADOLFO BLOOD BANK WORKER-WRIST LINER, WANDA A Primary Care Un available JUSTO HAUSER Attending Unavailable ADOLFO BLOOD BANK WORKER-WRIST LINER, WANDA A Primary Care Un available ADOLFO BLOOD BANK WORKER-WRIST LINER, WANDA A Attending Un available ADOLFO BLOOD BANK WORKER-WRIST LINER, WANDA A Primary Care Un available ADOLFO BLOOD BANK WORKER-WRIST LINER, WANDA A Primary Care Un available ADOLFO BLOOD BANK WORKER-WRIST LINER, WANDA A Attending Un available ADOLFO BLOOD BANK WORKER-WRIST LINER, WANDA A Primary Care Un available HILARY MCLAUGHLIN MD Attending Unavailable [place] HURTADO Referring Unavailable ADOLFO, WANDA Primary Care Unavailable ADOLFO, WANDA Primary Care Unavailable [place] HURTADO Attending Unavailable PROBLEMS DATE TYPE CONDITION / CODE ATTENDING STATUS [facility] 08/08/2025 Final Diagnosis (Discharge) Type 2 diabetes mellitus with unspecified complications / E11.8(ICD-10) [facility]/18[facility]2025 Admitting Diagnosis Type 2 diabetes mellitus without complications / E11.9(ICD-10) [facility] 03/20/2025 Unknown Periapical absce ss without sinus / K04.7(ICD-10) LAVONNE SPARKS, KATINA Fuentes [facility] 03/02/2025 Final Diagnosis (Discharge) Abnormal findings on diagnostic imaging of other parts of musculoskeletal system / R93.7(ICD-10) [facility] 03/02/2025 Final Diagnosis (Discharge) Impacted teeth / K01.1(ICD-10) [facility] 03/02/2025 Final Diagnosis (Discharge) Inflammatory conditions of jaws / M27.2(ICD-10) [facility] 09/23/2024 Admitting Diagnosis Pain in left finger(s) / M79.645(ICD-10) KY HURTADO Active [facility] PROCEDURES No Procedure Records Found RESULTS CBC Collected: 1:26 PM Status: F Source: [facility] TYPE CODE TESTS RESULT OUT OF RANGE REFERENCE UNITS LAB WBC(LOINC) WBC 5.7 4.5-10.8 10 3/mcL LAB RBCCT(LOINC) RBC 5.04 4.50-6.00 10 6/mcL LAB HGB(LOINC) Hgb 15.1 13.0-17.5 G/dL LAB HCT(LOINC) Hct 42.8 40.0-52.0 % LAB MCV(LOINC) MCV 84.8 81.0-100.0 fL LAB MCH(LOINC) MCH 29.9 27.0-33.0 pg LAB MCHC(LOINC) MCHC 35.3 32.0-36.0 G/dL LAB RDW(LOINC) RDW 13.6 11.5-15.5 % LAB PLT(LOINC) Platelet 239 150-450 10 3/mcL LAB MPV(LOINC) MPV 7.7 6.4-10.5 fL Performed By: #### GFR, CMP, LIP, CBC, ADIFF, DEJA, ANEU #### [address] [address] .AUTO DIFF Collected: 08/02/2025 1:26 PM Status: F Source: [facility] TYPE CODE TESTS RESULT OUT OF RANGE REFERENCE UNITS LAB MILAD(LOINC) Neutrophil % 55.3 50.0-75.0 % LAB LYM(LOINC) Lymphocyte % 23.2 20.0-40.0 % LAB MON(LOINC) Monocyte % 7.6 2.0-13.0 % LAB EO(LOINC) Eosinophil % 13.1 High 0.0-6.0 % LAB BAS(LOINC) Basophil % 0.8 0.0-2.5 % LAB ABLYM(LOINC) Lymphocyte, Absolute 1.3 0.9-4.3 10 3/mcL LAB NAN(LOINC) Monocyte, Absolute 0.4 0.1-1.4 10 3/mcL LAB AEOS(LOINC) Eosinophil, Absolute 0.7 0.0-0.7 10 3/mcL LAB ABAS(LOINC) Basophil, Absolute 0.0 0.0-0.3 10 3/mcL Performed By: #### GFR, CMP, LIP, CBC, ADIFF, DEJA, ANEU #### [address] [address] .NEUABS Collected: 1:26 PM Status: F Source: [facility] TYPE CODE TESTS RESULT OUT OF RANGE REFERENCE UNITS LAB ANEU(LOINC) Neutrophil, Absolute 3.2 2.3-8.1 10 3/mcL Performed By: #### GFR, CMP, LIP, CBC, ADIFF, DEJA, ANEU #### [address] [address] DEJA Collected: 08/02/2025 1:26 PM Status: F Source: [facility] TYPE CODE TESTS RESULT OUT OF RANGE REFERENCE UNITS LAB DEJA(LOINC) Amylase Level 39 25-115 U/L Performed By: #### GFR, CMP, LIP, CBC, ADIFF, DEJA, ANEU #### [address] [address] LIP Collected: 08/02/2025 1:26 PM Status: F Source: [facility] TYPE CODE TESTS RESULT OUT OF RANGE REFERENCE UNITS LAB LIP(LOINC) Lipase Level 49 16-77 U/L Performed By: #### GFR, CMP, LIP, CBC, ADIFF, DEJA, ANEU #### [address] [address] CMP Collected: 08/02/2025 1:26 PM Status: F Source: [facility] TYPE CODE TESTS RESULT OUT OF RANGE REFERENCE UNITS LAB GLU(LOINC) Glucose Level 175 High 70-105 mg/dL LAB NA(LOINC) Sodium Level 142 136-145 mmol/L LAB K(LOINC) Potassium Level 4.0 3.5-5.1 mmol/L LAB CL(LOINC) Chloride 105 98-107 mmol/L LAB CO2(LOINC) CO2 29 22-29 mmol/L LAB EBAL(LOINC) Electrolyte Balance 8.0 4.0-15.0 mEq/L LAB BUN(LOINC) BUN 13 7-18 mg/dL LAB CRE(LOINC) Creatinine Lvl (s) 0.93 0.67-1.17 mg/dL LAB BC(LOINC) BUN/Creatinine Ratio 14 7-27 ratio LAB CA(LOINC) Calcium Lvl 9.1 8.4-10.2 mg/dL LAB PROT(LOINC) Total Protein 7.2 6.4-8.2 G/dL LAB ALB(LOINC) Albumin Level 3.8 3.5-5.0 G/dL LAB GLB(LOINC) Globulin 3.4 2.7-4.4 G/dL LAB AG(LOINC) A/G Ratio 1.1 1.1-2.5 ratio LAB BILT(LOINC) Bili Total 0.4 0.2-1.0 mg/dL Result Comment: Use of this assay is not recommended for patients undergoing treatment with eltrombopag due to the potential for falsely elevated results. LAB AP(LOINC) Alk Phos 61 40-135 U/L LAB AST(LOINC) AST/SGOT 21 10-40 U/L LAB ALT(LOINC) ALT/SGPT 39 16-63 U/L Performed By: #### GFR, CMP, LIP, CBC, ADIFF, DEJA, ANEU #### [address] [address] .GFR Collected: 08/02/2025 1:26 PM Status: F Source: [facility] TYPE CODE TESTS RESULT OUT OF RANGE REFERENCE UNITS LAB eGFR(LOINC) Estimated Glomerular Filtration Rate 106 ml/min/1. 73sqm Result Comment: Stages of Chronic Kidney Disease [...] calculate the eGFR results. Performed By: #### GFR, CMP, LIP, CBC, ADIFF, DEJA, ANEU #### [address] [address] QUANTTB Collected: 11:33 AM Status: F Source: [facility] TYPE CODE TESTS RESULT OUT OF RANGE REFERENCE UNITS LAB 008787(LOINC) QFT Criteria Comment Result Comment: QuantiFERON-TB Gold Plus is a qualitative indirect test for M tuberculosis infection (including disease) and is intended for use in conjunction with risk assessment, radiography, and other medical and diagnostic evaluations. The QuantiFERON-TB Gold Plus result is determined by subtracting the Nil value from either TB antigen (Ag) value. The Mitogen tube serves as a control for the test. LAB 599830(LOINC) QFT TB1 Ag Value 0.03 IU/mL LAB 245595(LOINC) QFT TB2 Ag Value 0.04 IU/mL LAB 682411(LOINC) QFT Nil Value 0.03 IU/mL LAB 979908(LOINC) QFT Mitogen Value >10.00 IU/mL LAB 749241(LOINC) QFT-TB Gold Plus Clt Inc Negative Negative Result Comment: No response to M tuberculosis antigens detected. Infection with [...] interferon gamma. Chemiluminescence immunoassay methodology Performed At: [facility] [id number] Kenia Nicholson PhD Ph:[phone] Performed By: #### [id number] ## ## [place] [address] MALBR Collected: 06/18/2025 4:27 PM Status: F Source: [facility] TYPE CODE TESTS RESULT OUT OF RANGE REFERENCE UNITS LAB CRU(LOINC) U Creatinine 39.8 mg/dL LAB MRUR(LOINC) U Microalb 5.1 mg/L LAB RMAL(LOINC) U Ratio Alb/Cre 13 0-30 mg/G Performed By: #### MALBR ### # [place] [address] PSA Collected: 06/18/2025 2:19 PM Status: F Source: [facility] TYPE CODE TESTS RESULT OUT OF RANGE REFERENCE UNITS LAB PSA(LOINC) Prostate Specific Antigen 0.59 0.00-4.00 ng/mL Performed By: #### PSA #### [address] [address] UA Collected: 05/11/2025 11:58 AM Status: F Source: [facility] Order Comment: Please do sta t TYPE CODE TESTS RESULT OUT OF RANGE REFERENCE UNITS LAB SPCUA(LOINC) UA Specimen Type Clean Catch LAB CLRUA(LOINC) UA Color Yellow LAB APPUA(LOINC) UA Appear Clear Clear LAB SGUA(LOINC) UA Spec Grav <=1.005 Abnormal 1.015-1.025 LAB GLUA(LOINC) UA Glucose >=1000 Abnormal Negative mg/dL LAB BILUA(LOINC) UA Bili Negative Negative LAB KETUA(LOINC) UA Ketones Negative Negative mg/dL LAB BLDUA(LOINC) UA Blood Negative Negative LAB PHUA(LOINC) UA pH 6.0 5.0 - 8.0 LAB PROUA(LOINC) UA Protein Negative Negative mg/dL LAB UROUA(LOINC) UA Urobilinogen 0.2 0.2-1.0 E.U ./dL LAB NITUA(LOINC) UA Nitrite Negative Negative LAB LEUUA(LOINC) UA Leuk Est Negative Negative Performed By: #### UA #### [address] [address] CBC Collected: 11:54 AM Status: F Source: [facility] Order Comment: Please do sta t TYPE CODE TESTS RESULT OUT OF RANGE REFERENCE UNITS LAB WBC(LOINC) WBC 6.9 4.5-10.8 10 3/mcL LAB RBCCT(LOINC) RBC 5.10 4.50-6.00 10 6/mcL LAB HGB(LOINC) Hgb 15.0 13.0-17.5 G/dL LAB HCT(LOINC) Hct 43.7 40.0-52.0 % LAB MCV(LOINC) MCV 85.7 81.0-100.0 fL LAB MCH(LOINC) MCH 29.3 27.0-33.0 pg LAB MCHC(LOINC) MCHC 34.2 32.0-36.0 G/dL LAB RDW(LOINC) RDW 13.7 11.5-15.5 % LAB PLT(LOINC) Platelet 244 150-450 10 3/mcL LAB MPV(LOINC) MPV 7.3 6.4-10.5 fL Performed By: #### TRAVIS MEYERS EU, CMP, GFR, CBC, ESR #### [address] [address] .AUTO DIFF Collected: 05/11/2025 11:54 AM Status: F Source: [facility] TYPE CODE TESTS RESULT OUT OF RANGE REFERENCE UNITS LAB MILAD(LOINC) Neutrophil % 62.1 50.0-75.0 % LAB LYM(LOINC) Lymphocyte % 20.1 20.0-40.0 % LAB MON(LOINC) Monocyte % 8.2 2.0-13.0 % LAB EO(LOINC) Eosinophil % 8.7 High 0.0-6.0 % LAB BAS(LOINC) Basophil % 0.9 0.0-2.5 % LAB ABLYM(LOINC) Lymphocyte, Absolute 1.4 0.9-4.3 10 3/mcL LAB NAN(LOINC) Monocyte, Absolute 0.6 0.1-1.4 10 3/mcL LAB AEOS(LOINC) Eosinophil, Absolute 0.6 0.0-0.7 10 3/mcL LAB ABAS(LOINC) Basophil, Absolute 0.1 0.0-0.3 10 3/mcL Performed By: #### TRAVIS MEYERS EU, CMP, GFR, CBC, ESR #### Sejal [address] [address] .NEUABS Collected: 11:54 AM Status: F Source: [facility] TYPE CODE TESTS RESULT OUT OF RANGE REFERENCE UNITS LAB ANEU(LOINC) Neutrophil, Absolute 4.3 2.3-8.1 10 3/mcL Performed By: ###TRAVIS ARAUJO EU, CMP, GFR, CBC, ESR #### [address] [place], [place] [address] ESR Collected: 05/11/2025 11:54 AM Status: F Source: [facility] TYPE CODE TESTS RESULT OUT OF RANGE REFERENCE UNITS LAB ESR(LOINC) Erythrocyte Sed Rate 5 0-15 mm/hr Performed By: #### TRAVIS MEYERS EU, CMP, GFR, CBC, ESR #### [place] [place], [place] [address] CMP Collected: 05/11/2025 11:54 AM Status: F Source: [facility] Order Comment: Please do sta t TYPE CODE TESTS RESULT OUT OF RANGE REFERENCE UNITS LAB GLU(LOINC) Glucose Level 149 High 70-105 mg/dL LAB NA(LOINC) Sodium Level 139 136-145 mmol/L LAB K(LOINC) Potassium Level 3.7 3.5-5.1 mmol/L LAB CL(LOINC) Chloride 104 98-107 mmol/L LAB CO2(LOINC) CO2 26 22-29 mmol/L LAB EBAL(LOINC) Electrolyte Balance 9.0 4.0-15.0 mEq/L LAB BUN(LOINC) BUN 13 7-18 mg/dL LAB CRE(LOINC) Creatinine Lvl (s) 0.98 0.67-1.17 mg/dL LAB BC(LOINC) BUN/Creatinine Ratio 13 7-27 ratio LAB CA(LOINC) Calcium Lvl 9.2 8.4-10.2 mg/dL LAB PROT(LOINC) Total Protein 7.9 6.4-8.2 G/dL LAB ALB(LOINC) Albumin Level 4.0 3.5-5.0 G/dL LAB GLB(LOINC) Globulin 3.9 2.7-4.4 G/dL LAB AG(LOINC) A/G Ratio 1.0 Low 1.1-2.5 ratio LAB BILT(LOINC) Bili Total 0.4 0.2-1.0 mg/dL Result Comment: Use of this assay is not recommended for patients undergoing treatment with eltrombopag due to the potential for falsely elevated results. LAB AP(LOINC) Alk Phos 65 40-135 U/L LAB AST(LOINC) AST/SGOT 19 10-40 U/L LAB ALT(LOINC) ALT/SGPT 41 16-63 U/L Performed By: #### TRAVIS MEYERS EU, CMP, GFR, CBC, ESR #### Sej[address] [address] .GFR Collected: 11:54 AM Status: F Source: [facility] TYPE CODE TESTS RESULT OUT OF RANGE REFERENCE UNITS LAB eGFR(LOINC) Estimated Glomerular Filtration Rate 100 ml/min/1. 73sqm Result Comment: Stages of Chronic Kidney Disease [...] calculate the eGFR results. Performed By: #### ADIFF, AN EU, CMP, GFR, CBC, ESR #### [address] [address] [address] SOFT TISSUE NECK W/ CONTRAST Observed: 03/02/2025 2:00 PM Status: F Source: [facility] ORIGINAL EXAMINATION: CT neck with intravenous contrast [...] Date: 03/02/2025 1:59:18 PM Ordering Provider: WANDA MATA CBC Collected: 9:40 AM Status: F Source: [facility] TYPE CODE TESTS RESULT OUT OF RANGE REFERENCE UNITS LAB WBC(LOINC) WBC 7.0 4.5-10.8 10 3/mcL LAB RBCCT(LOINC) RBC 5.31 4.50-6.00 10 6/mcL LAB HGB(LOINC) Hgb 15.6 13.0-17.5 G/dL LAB HCT(LOINC) Hct 45.1 40.0-52.0 % LAB MCV(LOINC) MCV 84.9 81.0-100.0 fL LAB MCH(LOINC) MCH 29.4 27.0-33.0 pg LAB MCHC(LOINC) MCHC 34.6 32.0-36.0 G/dL LAB RDW(LOINC) RDW 13.7 11.5-15.5 % LAB PLT(LOINC) Platelet 270 150-450 10 3/mcL LAB MPV(LOINC) MPV 7.4 6.4-10.5 fL Performed By: #### LIPID, AD IFF, CBC, GFR, A1C, ANEU, VIDH, TSH, CMP, FT4 #### [address] [address] .AUTO DIFF Collected: 02/23/2025 9:40 AM Status: F Source: [facility] TYPE CODE TESTS RESULT OUT OF RANGE REFERENCE UNITS LAB MILAD(LOINC) Neutrophil % 59.8 50.0-75.0 % LAB LYM(LOINC) Lymphocyte % 25.6 20.0-40.0 % LAB MON(LOINC) Monocyte % 9.6 2.0-13.0 % LAB EO(LOINC) Eosinophil % 4.4 0.0-6.0 % LAB BAS(LOINC) Basophil % 0.6 0.0-2.5 % LAB ABLYM(LOINC) Lymphocyte, Absolute 1.8 0.9-4.3 10 3/mcL LAB NAN(LOINC) Monocyte, Absolute 0.7 0.1-1.4 10 3/mcL LAB AEOS(LOINC) Eosinophil, Absolute 0.3 0.0-0.7 10 3/mcL LAB ABAS(LOINC) Basophil, Absolute 0.0 0.0-0.3 10 3/mcL Performed By: #### LIPID, AD IFF, CBC, GFR, A1C, ANEU, VIDH, TSH, CMP, FT4 #### [address] [address] .NEUABS Collected: 9:40 AM Status: F Source: [facility] TYPE CODE TESTS RESULT OUT OF RANGE REFERENCE UNITS LAB ANEU(LOINC) Neutrophil, Absolute 4.2 2.3-8.1 10 3/mcL Performed By: #### LIPID, AD IFF, CBC, GFR, A1C, ANEU, VIDH, TSH, CMP, FT4 #### [address] [address] TSH Collected: 9:40 AM Status: F Source: [facility] TYPE CODE TESTS RESULT OUT OF RANGE REFERENCE UNITS LAB TSH(LOINC) TSH 3.30 0.36-3.74 mcIU/mL Performed By: #### LIPID, AD IFF, CBC, GFR, A1C, ANEU, VIDH, TSH, CMP, FT4 #### [address] [place], [place] [address] FT4 Collected: 9:40 AM Status: F Source: [facility] TYPE CODE TESTS RESULT OUT OF RANGE REFERENCE UNITS LAB FT4(LOINC) Free T4 0.90 0.76-1.46 ng/dL Performed By: #### LIPID, AD IFF, CBC, GFR, A1C, ANEU, VIDH, TSH, CMP, FT4 #### [address] [place], [place] [address] CMP Collected: 02/23/2025 9:40 AM Status: F Source: [facility] TYPE CODE TESTS RESULT OUT OF RANGE REFERENCE UNITS LAB GLU(LOINC) Glucose Level 129 High 70-105 mg/dL LAB NA(LOINC) Sodium Level 140 136-145 mmol/L LAB K(LOINC) Potassium Level 3.8 3.5-5.1 mmol/L LAB CL(LOINC) Chloride 104 98-107 mmol/L LAB CO2(LOINC) CO2 30 High 22-29 mmol/L LAB EBAL(LOINC) Electrolyte Balance 6.0 4.0-15.0 mEq/L LAB BUN(LOINC) BUN 14 7-18 mg/dL LAB CRE(LOINC) Creatinine Lvl (s) 1.05 0.70-1.30 mg/dL Result Comment: Testing perf ormed on Siemens Dimension EXL analyzer using a modified kinetic Chuy technique. LAB BC(LOINC) BUN/Creatinine Ratio 13 7-27 ratio LAB CA(LOINC) Calcium Lvl 9.4 8.4-10.2 mg/dL LAB PROT(LOINC) Total Protein 7.9 6.4-8.2 G/dL LAB ALB(LOINC) Albumin Level 4.3 3.5-5.0 G/dL LAB GLB(LOINC) Globulin 3.6 1.5-3.8 G/dL LAB AG(LOINC) A/G Ratio 1.2 1.1-2.5 ratio LAB BILT(LOINC) Bili Total 0.4 0.2-1.0 mg/dL Result Comment: Use of this assay is not recommended for patients undergoing treatment with eltrombopag due to the potential for falsely elevated results. LAB AP(LOINC) Alk Phos 75 40-135 U/L LAB AST(LOINC) AST/SGOT 22 10-40 U/L LAB ALT(LOINC) ALT/SGPT 34 16-63 U/L Performed By: #### LIPID, AD IFF, CBC, GFR, A1C, ANEU, VIDH, TSH, CMP, FT4 #### [address] [place], [place] [address] .GFR Collected: 02/23/2025 9:40 AM Status: F Source: [facility] TYPE CODE TESTS RESULT OUT OF RANGE REFERENCE UNITS LAB eGFR(LOINC) Estimated Glomerular Filtration Rate 92 ml/min/1. 73sqm Result Comment: Stages of Chronic Kidney Disease [...] calculate the eGFR results. Performed By: #### LIPID, AD IFF, CBC, GFR, A1C, ANEU, VIDH, TSH, CMP, FT4 #### [address] [place], [place] [address] A1C Collected: 9:40 AM Status: F Source: [facility] TYPE CODE TESTS RESULT OUT OF RANGE REFERENCE UNITS LAB A1C(LOINC) Hgb A1c 6.0 4.3-6.4 % LAB eAG(LOINC) Est Avg Glucose 126 mg/dL Result Comment: Estimated Av erage Glucose calculated by equation ((28.7xA1C)- 46.7) Estimated average glucose (eAG) is a calculated value from Hemoglobin A1C and is collections representative of the average blood glucose level in the last 2-3 month period. Normal range: less than 114 mg/dL Performed By: #### LIPID, AD IFF, CBC, GFR, A1C, ANEU, VIDH, TSH, CMP, FT4 #### [address] [address] VIDH Collected: 9:40 AM Status: F Source: [facility] TYPE CODE TESTS RESULT OUT OF RANGE REFERENCE UNITS LAB VIDH(LOINC) Vit. D 25-Hydroxy 58.9 ng/mL Result Comment: Interpretive Values Based on Total 25(OH) Vitamin D: Deficient <20 ng/mL Insufficient 20 - <30 ng/mL Sufficient 30-100 ng/mL Performed By: #### LIPID, AD IFF, CBC, GFR, A1C, ANEU, VIDH, TSH, CMP, FT4 #### [address] [place], [place] [address] LIPID Collected: 02/23/2025 9:40 AM Status: F Source: [facility] TYPE CODE TESTS RESULT OUT OF RANGE REFERENCE UNITS LAB CHOL(LOINC) Cholesterol 138 0-200 mg/dL Result Comment: Cholesterol Reference Interval: Less than 200 Desirable 200-239 Borderline high risk 240 and above High risk LAB TRIG(LOINC) Triglycerides 124 0-150 mg/dL Result Comment: Triglyceride Reference Interval: Less than 150 Normal 150-199 Borderline high risk 200-499 High risk 500 or higher Very high risk LAB HD(LOINC) HDL Cholesterol 39 Low 40-60 mg/dL LAB LDL(LOINC) LDL Cholesterol 74 0-130 mg/dL Performed By: #### LIPID, AD IFF, CBC, GFR, A1C, ANEU, VIDH, TSH, CMP, FT4 #### [address] [place], [place] [address] ED PROVIDER NOTE Observed: 09/23/2024 10:30 AM Status: COMPLETED Source: [facility] EM[facility]Y [facility] ER Pt Name: Conrado Lake Birthdate 1985 Date of evaluation: 09/23/2024 ED Provider: Ky Hurtado MD CHIEF COMPLAINT Chief Complaint Patient presents with Hand Pain Denies injury HISTORY OF PRESENT ILLNESS I wore appropriate PPE for the entirety of this encounter. HPI Conrado Lake is a 38 y.o. male who [...] the joint. He has a history of ayj-ezaelsn-bhowmivms diabetes. He has schizophrenia. 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 Dunbar Psoriasis 1999 Dr. Rabago Schizophrenia ([facility]) 2007 Type 2 diabetes mellitus ([facility]) 12/2019 SURGICAL HISTORY Past Surgical History: Procedure Laterality Date CHOLECYSTECTOMY 09/11/2021 Dr. Garcia COLONOSCOPY 2013 [place] TONSILLECTOMY (HISTORICAL) UPPER GASTROINTESTINAL [...] CONTINUOUS GLUCOSE SENSOR (FREESTYLE GOGO 2 SENSOR) [facility] apply 1 SENSOR TO BACK OF ARM [...] qDay, # 16 gram(s), 11 Refill(s), Pharmacy: [id number], Acute sinusitis, 177.8, cm, 04/05/24 14:15:00 EDT, Height, kg, 04/05/24 14:16:00 EDT, Dosing Weight GABAPENTIN (NEURONTIN) 400 MG CAPSULE 400 mg. GLIMEPIRIDE (AMARYL) 2 MG TABLET See Instructions, Take 2 tablets (4mg) by mouth with breakfast and 1 tablet (2mg) with dinner, # 90 tab(s), 3 Refill(s), [place] [facility] [place] 179.6, cm, 04/13/24 10:38:00 EDT, Height, kg, [...] Resource Strain: Medium Risk (06/11/2021) [facility] Overall Financial Resource Strain (CARDIA) Difficulty of Paying Living Expenses: Somewhat hard Food Insecurity: No Food Insecurity (06/11/2021) [facility] Hunger Vital Sign Worried About Running Out of Food in the Last Year: Never true Ran Out of Food in the Last Year: Never true Transportation Needs: No Transportation Needs (01/19/2020) [facility] PRAPARE - Transportation Lack of Transportation (Medical): No Lack of Transportation (Non-Medical): No Physical Activity: Insufficiently Active (01/19/2020) [facility] 2,10E+07 [facility] Exercise Vital Sign Days of Exercise per Week: 1 day Minutes of Exercise per Session: 30 min Stress: Stress Concern Present (01/19/2020) [facility] [place] [facility] - Occupational Stress Questionnaire Feeling of Stress : Very much Social Connections: Unknown (01/19/2020) [facility] Social Connection and Isolation Panel [NHANES] Frequency of Social Gatherings with Friends and Family: More than three times a week Attends [employer] Services: Never Active Member of Clubs or Organizations: No Attends Club or Organization Meetings: Never SCREENINGS [place] Coma Scale Best Eye Response: Spontaneous Best Verbal Response: Oriented Best Motor Response: Follows commands [place] Coma Scale Score: 15 PHYSICAL EXAM ED Triage Vitals [09/23/24 1035] Temp Heart Rate Resp BP 36.9 ?C (98.5 ?F) 78 16 -- SpO2 Temp Source Heart [...] 1035 Pulse: 78 Resp: 16 Temp: 36.9 ?C (98.5 ?F) TempSrc: Oral SpO2: (!) 1% Weight: 113 kg (250 lb) Height: 1.778 m (5' 10) Medications Administered in the ED: Medications - No data to display I Ky Hurtado MD am the crate builder of record. PROCEDURES: Unless otherwise noted below, [...] obtained to help differentiate these diagnostic possibilities and determine the most likely cause. Sources of History: [...] the finger splint. The extremity is appropriately immobilized for stabilization. Patient neurovascularly intact before and after the splint application. Consideration of Admission/Observation: I considered admission for this patient, however, at this time the patient appears to be stable. I do not believe that the patient would benefit from admission at this time. I believe the patient can follow-up with the primary care physician. The patient [...] PATIENT REFERRED TO: Wanda Mata APRN - [facility] [address] [facility] [address] In 3 days DISCHARGE MEDICATIONS: New Prescriptions [...] are any questions or concerns please feel free to contact the dictating provider for clarification.) Ky Hurtado MD (electronically signed) Emergency Medicine Provider Ky Hurtado MD 09/23/24 1110 ALLERGIES No Allergies Records Found ENCOUNTERS ADMIT/DISCHARGE ACCOUNT NUMBER ADMITTING ENCOUNTER CLASS LOC ATION SOURCE 08/08/2025 [id number] [place] [facility] 08/02/2025/ 5 [id number] [place] [facility] 07/20/2025/ 5 [id number] [place] [facility] 06/18/2025/ 5 [id number] [place] [facility] 06/18/2025/ 5 [id number] [place] [facility] 05/11/2025/ 5 [id number] [place] [facility] 03/20/2025/ 5 [id number] [place] [facility] 03/02/2025/ 5 [id number] [place] 02/23/2025/ 5 [id number] [facility] 01/30/2025/ 5 [id number] [place] [facility] [facility] 09/23/2024/ 4 [id number] Emergency [place] [address] [facility] 09/23/2024/ 4 [id number] Emergency Build[place] 17685Kopx: [id number]: 07 [facility] PAYERS ENCOUNTER GUARANTOR PAYER SUBSCRIBER SOURCE 08/08/2025 CONRADO DYKES: [id number] [place] [address]Whk: () Primary Insurance:[facility] INSCOPolicy Number: [id number] Date:1501-68-11Btqr Name:MELISSA Dalal [address] [place] [address]ZN: CONRADO DYKES: [id number] [place] [address]Qem: (HP) (WP) [facility] 08/02/2025 CONRADO DYKES: [place] [address]Got: (HP) Primary Insurance:[facility] INSCOPolicy Number: [id number] Date:8759-80-05Krvm Name:MELISSA Dalal [address] [place] [address]IZ: CONRADO DYKES: [id number] [place] [address]Ibt: (HP) (WP) [facility] 07/20/2025 CONRADO DYKES: [place] [address]Kqu: (HP) Primary Insurance:[facility] INSCOPolicy Number: [id number] Date:9995-02-81Wwxh Name:MELISSA Dalal [address] [place] [address]IG: CONRADO DYKES: [id number] [place] [address]Ayy: (HP) (WP) [facility] 06/18/2025 CONRADO DYKES: [place] [address]Trq: (HP) Primary Insurance:[facility] INSCOPolicy Number: [id number] Date:8286-44-29Ebbh Name:SANTOSH Katlin [address] [place] [address]EZ: CONRADO RAOB: [id number] [place] [address]Nat: (HP) (WP) [facility] 06/18/2025 CONRADO RAOB: [place] [address]Ybc: (HP) Primary Insurance:[facility] INSCOPolicy Number: [id number] Date:0277-77-06Vfwh Name:[facility] Katlin [address] [place] [address]CS: CONRADO RAOB: [id number] [place] [address]Upm: (HP) (WP) [facility] 05/11/2025 CONRADO RAOB: [place] [address]Pqi: (HP) Primary Insurance:[facility] INSCOPolicy Number: [id number] Date:8508-07-02Dnqw Name:[facility] Katlin [address] [place] [address]NG: CONRADO RAOB: [id number] [address] [place] [address]Clr: (HP) (WP) [facility] 03/20/2025 CONRADO RAOB: [place] [address]Qnl: (HP) Primary Insurance:[facility] INSCOPolicy Number: [id number] Date:5928-87-01Awly Name:[facility] Katlin [address] [place] [address]TZ: CONRADO RAOB: [id number] [address] [place] [address]Std: (HP) (WP) [facility] 03/02/2025 CONRADO DYKES: [place] [address]Kpw: (HP) Primary Insurance:[facility] INSCOPolicy Number: [id number] Date:1273-41-52Sawe Name:[facility] Katlin [address] [place] [address]VB: CONRADO DYKES: [id number] [place] [address]Upc: (HP) (WP) [facility] 02/23/2025 CONRADO DYKES: [place] [address]Txd: (HP) Primary Insurance:[facility] INSCOPolicy Number: [id number] Date:9303-15-30Ijss Name:[address] [address]OW: CONRADO DYKES: [id number] [place] [address]Rii: (HP) (WP) [facility] 01/30/2025 CONRADO DYKES: [place] [address]Tpl: (HP) Primary Insurance:[facility] INSCOPolicy Number: [id number] Date:6168-68-11Pmdz Name:[address] [address]NN: CONRADO DYKES: [id number] [place] [address]Fra: (HP) (WP) [facility] 09/23/2024 Primary Insurance:[facility] MEDICAIDPolicy Number: [id number] Date:6469-76-17Wwew Name:Medicaid HMO CONRADO DYKES: [id number] [place] [address] [facility] 09/23/2024 Primary Insurance:[facility] MEDICAIDPolicy Number: [id number] Date:1809-27-50Nzaf Name:Medicaid HMO CONRADO DYKES: [id number] [place] [address] [facility]
--- NOTE | 2025-08-20 09:39 | RAD_ITS ---
PROCEDURE: CERV SPINE OBL/FLEX/EXT COMP 08/20/2025 REASON FOR EXAM: OTHER CERVICAL DISC DEGENERATION, UNSPECIFIED CERVICAL REGION TECHNIQUE: Procedure Code: RADSPCFE Modality: DX Procedure: CERV SPINE OBL/FLEX/EXT COMP cervical spine 8 views. COMPARISON: None FINDINGS: There is loss of the lordosis. Vertebral body height and alignment are maintained. There is no instability demonstrated on flexion or extension. There is loss of disc height at C5-6. The facets are aligned. Soft tissues are unremarkable. RAD/Cerv Spine Obl/Flex/Ext Comp IMPRESSION: There is loss of the lordosis. There is loss of disc height at C5-6. There is no instability demonstrated. Reading Location: [facility]
== END | disposition home or self-care (01) ==
LOC: RAD 09:39
PROVIDERS: PCP Registered Nurse; Referring Provider Anesthesiology Pain Medicine; Visit Provider Anesthesiology Pain Medicine
DX: M50.30 Other cervical disc degeneration, unspecified cervical region (principal)
CPT/HCPCS: 72052

== ENCOUNTER 2025-10-08 05:35 | Day surgery (SDC) | payer MEDICAID, SELFPAY ==
--- NOTE | 2025-10-02 15:30 | PAT.ANESEVAL ---
Pre-Assessment Diagnosis/Proposed Procedure Planned Operative Procedure(s): CERVICAL RFA C4,5,6,7 UNDER FLUOROSCOPY Anesthesia History Anesthesia History - baking powder mixer: Anesthesia History - baking powder mixer Hx Hospitalization No 10/02/25 08:18 Any Problems With Anesthesia No 10/02/25 08:18 Cholinesterase deficiency No 10/02/25 08:18 You/Your Family Experience No 10/02/25 08:18 fever (hyperthermia) with Relationship Recent Exposure to Contagious No 08/06/25 08:17 Disease Does patient have nerve No 10/02/25 08:18 stimulator Patient instructed to have device shut off --Does patient have Pacemaker or ICD? When Was Last Pacemaker Check QUESTION #4 FULL TEXT: You/Your Family Experience fever (hyperthermia) with Anesthesia Last Oral Intake Last Oral intake: Last Oral Intake NPO since Meds taken in AM with sips of water? Meds patient instructed to take am of surgery PONV PONV - baking powder mixer: PONV - baking powder mixer Female No 10/02/25 08:18 HX of Motion Sickness No 10/02/25 08:18 HX of N/V After Surgery No 10/02/25 08:18 Non-Smoker Yes 10/02/25 08:18 Duration of Surgery greater No 10/02/25 08:18 than 60 minutes Number of Risk Factors 1 10/02/25 08:18 PONV Score Low Risk 10/02/25 08:18 Height & Weight Height & Weight: Anesthesia: Height & Weight Height 5 ft 11 in 08/06/25 08:17 Respiratory Assessment Respiratory Assessment - baking powder mixer: Respiratory Tract Infection Hx - baking powder mixer Hx Respiratory Tract Infection No 10/02/25 08:18 STOP Sleep Apnea STOP Sleep Apnea - baking powder mixer: STOP Sleep Apnea - baking powder mixer Hx Hypertension No 10/02/25 08:18 Hx Sleep Apnea No 10/02/25 08:18 CPAP BIPAP Do you snore loudly (louder No 10/02/25 08:18 than talking or can be heard Do you often feel tired/ No 10/02/25 08:18 fatigued/ sleepy during daytime? Has anyone observed you stop No 10/02/25 08:18 breathing during sleep? STOP Results Negative 10/02/25 08:18 QUESTION #5 FULL TEXT : Do you snore loudly (louder than talking or can be heard through closed doors)? 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 Specify any problems Hx of Preganancy in last 3 N/A 10/02/25 08:18 Months Nurse Filling Out Transfusion DSCHRIBER 10/02/25 08:18 & Questions: Date: 10/02/25 10/02/25 08:18 Time: 08:19 10/02/25 08:18 Patient unable to answer at this time (ie. confused, unrespo /Reproduction History /Reproductive History - baking powder mixer: /Reproductive Hx- baking powder mixer Hx Now No 10/02/25 08:18 Gestational Age (in weeks): EDC: Hx Hx Para Hx Section SAB No 10/02/25 08:18 Does the father of the baby or his family experience fever w Father of the baby Malignant Hypertension history comment [facility] Medical History (Updated 10/02/25 @ 08:28 by Heather Richmond) Wears glasses Wears partial dentures Arthritis High cholesterol Restless legs Pain Migraine headache Injury of head and neck Seizures Dietary restriction Gastric reflux History of stress test Heart murmur Back pain Cardiology follow-up encounter Schizophrenia Bipolar disorder Depression Anxiety Gastric reflux Non-smoker Leg muscle spasm Family history of fatty liver History of Crohn's disease 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 due to type 2 diabetes mellitus Diabetes mellitus type 2 in obese Chronic back pain greater than 3 months duration Body mass index [BMI] 34.0-34.9, adult Home Medications ?Medication ?Instructions ?Recorded ?Last Taken ?Type hydroxyzine pamoate 25 mg capsule 25 mg PO BID 04/13/16 08/05/25 History benztropine 1 mg tablet 1 mg PO DAILY 02/10/22 08/05/25 History escitalopram oxalate 10 mg tablet 10 mg PO DAILY 02/10/22 08/05/25 History (Lexapro) fenofibrate nanocrystallized 145 145 mg PO DAILY 02/10/22 08/05/25 History mg tablet fluticasone propionate 50 1 spray intranasal DAILY 02/10/22 08/05/25 History mcg/actuation nasal spray,suspension dapagliflozin propanediol 5 mg 5 mg PO DAILY 02/07/24 08/05/25 History tablet (Farxiga) haloperidol 10 mg tablet 10 mg PO QHS 02/07/24 08/05/25 History dulaglutide 0.75 mg/0.5 mL 0.75 mg subcut PEREZ 07/05/25 09/30/25 History subcutaneous pen injector (Truliceast [facility]) omeprazole 20 mg capsule,delayed 20 mg PO DAILY 10/02/25 Unknown History release Allergy/AdvReac Type Severity Reaction Status Date / Time naproxen Allergy Intermediate Other Verified 10/02/25 08:15 Penicillins Allergy Hives Verified 10/02/25 08:15 prednisone Allergy Hives Verified 10/02/25 08:15 quetiapine fumarate (From Allergy Other Verified 10/02/25 08:15 Seroquel) Surgical History History of radiofrequency ablation (RFA) of nerve of cervical spine History of cholecystectomy Social History Smoking Status: Never smoker Audit: Pertinent Findings Pertinent Findings EKG Perinent findings: 01/2025: SR, LAD, abnormal R-wave progression, early transition. Borderline Twave abnormalities Stress test pertinent findings: 09/2023: (-) stress test result Recommendation Anesthesia Recommendation Anesthesia recommendation: OPTIMIZED for anesthesia
[2025-10-08] VITALS (9 sets, daily range): BP systolic 105–126; BP diastolic 66–76; PULSE 60–710; RESP 16; TEMP 36.1–36.7; O2SAT 96–100; BMI 32.5
--- OUTSIDE RECORDS SUMMARY | 2025-10-08 05:38 | XMS RPT_ITS | CCD ---
[facility] Providers Care Dermatology Sales Representative Name Role Phone Andrea Lazaro Chi Primary Care Unavailable Kenia Arambula Admitting Unavailable Kenia Arambula Attending Unavailable Long Gonzalez Primary Care Provider [phone] Long Gonzalez DO Primary Care Provider Long Gonzalez DO Primary Care Provider [phone] MADHAV PRESS OPERATOR [employer]-CASE SPECIALIST, ADRIÁN Primary Care Physician Long Gonzalez DO Primary Care Provider ZEFERINO PRESS OPERATOR [employer]CASE SPECIALIST, SYEDA Primary Care Physician ADOLFO PRESS OPERATOR [employer]CASE SPECIALIST, WANDA A Primary Care Physi sophy Adolfo PRESS OPERATOR [employer] - CASE SPECIALIST, Wanda Primary Care Provi markel ADOLFO PRESS OPERATOR [employer]CASE SPECIALIST, WANDA A Attending Un available ADOLFO PRESS OPERATOR [employer]CASE SPECIALIST, WANDA A Primary Care Un available ADOLFO PRESS OPERATOR [employer]CASE SPECIALIST, WANDA A Attending Un available ADOLFO PRESS OPERATOR [employer]CASE SPECIALIST, WANDA A Primary Care Un available ADOLFO PRESS OPERATOR [employer]CASE SPECIALIST, WANDA A Attending Un available ADOLFO PRESS OPERATOR [employer]CASE SPECIALIST, WANDA A Primary Care Un available ADOLFO PRESS OPERATOR [employer]CASE SPECIALIST, WANDA A Attending Un available ADOLFO PRESS OPERATOR [employer]CASE SPECIALIST, WANDA A Primary Care Un available ADOLFO PRESS OPERATOR [employer]CASE SPECIALIST, WANDA A Attending Un available ADOLFO PRESS OPERATOR [employer]CASE SPECIALIST, WANDA A Primary Care Un available REGIS REAGAN MD Attending Unavailable ADOLFO PRESS OPERATOR [employer]CASE SPECIALIST, WANDA A Primary Care Un available CHELSEY CASE SPECIALIST, MEGAN Attending Unavailable ADOLFO PRESS OPERATOR [employer] SPECIALIST, WANDA A Primary Care Un available FISH PRESS OPERATOR [employer]CASE SPECIALIST, FABIAN Attending Unavailab le ADOLFO PRESS OPERATOR [employer] SPECIALIST, WANDA A Primary Care Un available WARNER DOGILMA Attending Unavailable ADOLFO PRESS OPERATOR [employer] SPECIALIST, WANDA A Primary Care Un available KAREY TOSCANO, DR LUIS Mejia Attending Unavailable ADOLFO PRESS OPERATOR [employer] SPECIALIST, WANDA A Primary Care Un available DEMETRIO MCLAUGHLIN MD Attending Unavailable ADOLFO PRESS OPERATOR [employer] SPECIALIST, WANDA A Primary Care Un available ADOLFO PRESS OPERATOR [employer] SPECIALIST, WANDA A Primary Care Un available CARMEN DO, PRASHANT Attending Unavailable FISH PRESS OPERATOR [employer]CASE SPECIALIST, FABIAN Attending Unavailab le ADOLFO PRESS OPERATOR [employer] SPECIALIST, WANDA A Primary Care Un available Adolfo DRAG CAR RACER-C, Wanda Primary Care Provider Miles SPARKS, Dr. Tran Attending Provider [phone] Dr. Marc Aquino MD Referring Provider Fish DRAG CAR RACER-C, Fabian Attending Provider Fish DRAG CAR RACER-C, Fabian Referring Provider Fish DRAG CAR RACER-C, Fabian Other Provider Dr. Mahesh Olivares MD Attending Provider Adolfo DRAG CAR RACER-C, Wanda Primary Care Provider Dr. Marc Aquino MD Attending Provider [phone] Dr. Marc Aquino MD Referring Provider [phone] LEONEL GUILLERMO MD Primary Care Physician Leonel Guillermo Primary Care Provider ADOLFO PRESS OPERATOR [employer] SPECIALIST, WANDA A Primary Care Un available ADOLFO PRESS OPERATOR [employer] SPECIALIST, WANDA A Attending Un available ADOLFO PRESS OPERATOR [employer] SPECIALIST, WANDA A Primary Care Un available ADOLFO PRESS OPERATOR [employer] SPECIALIST, WANDA A Attending Un available ADOLFO PRESS OPERATOR [employer] SPECIALIST, WANDA A Primary Care Un available ADOLFO PRESS OPERATOR [employer] SPECIALIST, WANDA A Attending Un available JUSTO HAUSER Attending Unavailable ADOLFO PRESS OPERATOR [employer] SPECIALIST, WANDA A Primary Care Un available ADOLFO PRESS OPERATOR [employer] SPECIALIST, WANDA A Primary Care Un available ADOLFO PRESS OPERATOR [employer] SPECIALIST, WANDA A Attending Un available LEONEL GUILLERMO MD Attending Unavailable LEONEL GUILLERMO MD Primary Care Unavailable DEMETRIO MCLAUGHLIN MD Attending Unavailable ADOLFO PRESS OPERATOR [employer] SPECIALIST, WANDA A Primary Care Un available KATINA BANERJEE MD Attending Unavail able ADOLFO PRESS OPERATOR [employer] SPECIALIST, WANDA A Primary Care Un available LEONEL GUILLERMO MD Primary Care Unavailable LEONEL GUILLERMO MD Attending Unavailable ADOLFO PRESS OPERATOR [employer] SPECIALIST, WANDA A Attending Un available LEONEL GUILLERMO MD Primary Care Unavailable ADOLFO PRESS OPERATOR [employer] SPECIALIST, WANDA A Attending Un available ADOLFO PRESS OPERATOR [employer] SPECIALIST, WANDA A Primary Care Un available SHIREEN IVERSON MD Attending Unavailable ADOLFO PRESS OPERATOR [employer] SPECIALIST, WANDA A Primary Care Un available LEONEL GUILLERMO MD Primary Care Unavailable ADOLFO PRESS OPERATOR [employer] SPECIALIST, WANDA A Attending Un available Fish DRAG CAR RACER, Fabian Attending Unavailable Fish DRAG CAR RACER, Fabian Referring Unavailable Adolfo DRAG CAR RACER, [facility] Unavailabl e Marc Aquino Attending Unavailable Adolfo DRAG CAR RACER, [facility] Unavailabl e MilesMarc Referring Unavailable Marc Aquino Referring Unavailable Adolfo DRAG CAR RACER, [facility] Unavailabl e Marc Aquino Attending Unavailable Marc Aquino Attending Unavailable Adolfo DRAG CAR RACER, [facility] Unavailabl e Marc Aquino Referring Unavailable Fish DRAG CAR RACER, Fabian Referring Unavailable Adolfo DRAG CAR RACER, [facility] Care Unavailabl e Mahesh Olivares Attending Unavailable Fish DRAG CAR RACER Fabian Consulting Unavailable Marc Aquino Referring Unavailable Adolfo DRAG CAR RACER, [facility] Unavailabl e Marc Aquino Attending Unavailable Marc Aquino Attending Unavailable Adolfo DRAG CAR RACER, [facility] Unavailabl e Marc Aquino Referring Unavailable Leonel Guillermo Primary Care Provider TERRELL ENRIQUEZ Attending Unavailable LEONEL GUILLERMO Primary Care Unavailable ERNESTINE MARQUEZ Attending Unavailable LEONEL GUILLERMO Primary Care Unavailable ERNESTINE MARQUEZ Attending Unavailable LEONEL GUILLERMO Primary Care Unavailable ERNESTINE MARQUEZ Referring Unavailable Allergies Allergy Classification Reported Allergen(s) Allergy Type Date of Onset Reaction(s) Facility Corticosteroids (1 source) predniSONE Drug Allergy 7 Hives [facility] Penicillins (antibiotic) (1 source) Penicillins Drug Allergy 0 [facility] QUEtiapine (1 source) QUEtiapine Drug Allergy 7 Other (See Comments) [facility] risperiDONE (1 source) risperiDONE Drug Allergy 2 Other (See Comments) [facility] (20 sources) predniSONE; Translations: [predniSONE] Drug Allergy 7 Hives, Unknown [facility] (20 sources) QUEtiapine; Translations: [SEROquel] Drug Allergy [facility] (8 sources) Penicillins Propensity to adverse reactions to drug 0 [facility] Work Phone: (20 sources) QUEtiapine Drug Allergy 7 Other (See Comments), Other [facility] Work Phone: (8 sources) risperiDONE Drug Allergy 2 Other (See Comments) [facility] Work Phone: (4 sources) Adhesive Tape Propensity to adverse reactions to drug 1 [facility] (20 sources) Naproxen; Translations: [naproxen] Drug Allergy 1 Other [facility] (6 sources) Penicillins [facility] substance [facility] (7 sources) QUEtiapine; Translations: [quetiapine fumarate] Drug Allergy 3 Other [facility] (20 sources) Penicillin; Translations: [penicillin] Drug Allergy I got sick [facility] [place] (20 sources) Penicillins Drug Allergy 0 Unknown [facility] (1 source) Naproxen Drug Allergy 5 [facility] (1 source) Penicillins Drug allergy (disorder) 5 [facility] Medications Current Medications Medication Drug [...] every six hours as needed for pain [place] 325- 5 mg oral tablet Dose = [...] tablet (20 sources) HMG-CoA Reductase Inhibitor Start: 08-23-2023 atorvastatin (Lipito r) 20 MG tablet 20 mg. 07/14/2023 Active Start: 02-24-2023 End: 08-23-2023 atorvastatin 10 mg oral tabl et Dose : 10 mg = 1 tab(s), Oral, qDay, # 90 tab(s), 1 Refill(s), Pharmacy: [facility], Mixed hyperlipidemia, 180.3, cm, 02/12/23 8:53:00 EDT, Height Start Date: 02/24/23 Stop Date: 08/23/23 Status: Ordered benzonatate 100 mg oral capsule (12 sources) Non-narcotic Antitussive Start: 09-21-2025 End: 09-28-2025 take 1-2 capsules by mouth every eight hours as needed for cough benzonatate 100 mg oral capsule See Instructions, PRN as needed for cough, Take 1-2 caps by mouth q8h as needed for cough. do not crush or chew, # 30 cap(s), 0 Refill(s), 09/28/25 10:43:00 AM EST, Pharmacy: [facility]/pharmacy #[id number], Acute rhinosinusitis, 180, cm, 09/21/25 10:06:00 EDT, Height, kg, 09/21/25 10:06:00 EDT, Dosing Weight Start Date: 09/21/25 Stop Date: 09/28/25 Status: Ordered Medication Dispense Status: Completed Quantity: 30.0 Unit: cap(s) Total Allowed Fills: 1 Fills Dispensed: 0 Indications: Acute sinusitis, unspecified; Start: 10-27-2023 take 1 capsule by mo ut three times daily as needed for cough benzonatate (Tessalon) 100 MG capsule Take 100 mg by mouth 3 times daily as needed for cough. 10/27/2023 Active benztropine mesylate 2 mg oral tablet (20 sources) Anticholinergic, Antihistamine Start: 03-31-2024 benztropine (Cogentin) 2 MG tablet 03/31/2024 Active Start: 09-17-2021 benztropine (C OGENTIN) 2 MG tablet Start: 01-12-2015 benztropine 1 mg oral tablet Dose : 1 mg = 1 tab(s), Oral, qDay, # 30 tab(s), 0 Refill(s), Pharmacy: [facility], 179.6, cm, 04/13/24 10:38:00 EDT, Height, [...] ringers infusion cholecalciferol 0.125 mg oral capsule (11 sources) Vitamin D Start: 12-27-2023 take 1 capsule by mouth once daily cholecalciferol (Vitamin D-3) 125 MCG (5000 UT) capsule Take 125 mcg by mouth daily. 12/27/2023 Active clindamycin 300 mg oral capsule (13 sources) Lincosamide Antibacterial Start: 02-27-2024 End: 03-27-2025 take 1 capsule by mouth three times daily clindamycin (Cleocin) 300 MG capsule take 1 capsule by mouth three times a day for 10 days (TAKE WITH A PROBIOTIC) 02/27/2024 Active Continuous Blood Gluc Corncob Pipe Supervisor (FREESTYLE GOGO 2 READER) WANG (8 sources) Start: 01-30-2021 Continuous Blood Gluc Corncob Pipe Supervisor (FREESTYLE GOGO 2 READER) WANG Test daily 1 each 1 01/30/2021 Active Continuous Blood Gluc Sensor (FREESTYLE GOGO 2 SENSOR) MISC (8 sources) Start: 01-30-2021 Continuous Blood Gluc Sensor (FREESTYLE GOGO 2 SENSOR) MISC Test daily 1 each 5 01/30/2021 Active Continuous Glucose Sensor (FreeStyle Gogo 2 Sensor) misc (11 sources) Start: 03-22-2024 Continuous Glucose Sensor (FreeStyle Gogo 2 Sensor) [facility] apply 1 SENSOR TO BACK OF ARM [...] qDay, # 90 tab(s), 3 Refill(s), Pharmacy: [facility] [place], 178, cm, 11/01/24 14:02:00 EST, Height, kg, 11/01/24 14:02:00 EST, Dosing Weight Start Date: 11/03/24 Stop Date: 10/29/25 Status: Ordered Medication Dispense Status: Completed Quantity: 90.0 Unit: tab(s) Total Allowed Fills: 4 Fills Dispensed: 0 Start: 08-18-2023 Farxiga 10 mg oral tablet Dose : 10 mg = 1 tab(s), Oral, qDay, # 30 tab(s), 5 Refill(s), Pharmacy: [facility] [place], 180.3, cm, 08/13/23 9:00:00 EDT, Height, kg, 08/13/23 9:00:00 EDT, Dosing Weight Start Date: 08/18/23 Status: Ordered Start: 08-13-2022 End: 08-08-2023 Farxiga 10 mg oral tablet Do se : 10 mg = 1 tab(s), Oral, qDay, # 30 tab(s), 2 Refill(s), Pharmacy: [facility] [place], 180.3, cm, 02/12/23 8:53:00 EDT, Height, kg, 02/12/23 8:53:00 EDT, Dosing Weight Start Date: 06/23/23 Status: Ordered Start: 05-14-2022 End: 12-21-2024 dapagliflozin (Farxiga) 5 MG tablet Take by mouth. 05/14/2022 Active dicyclomine hydrochloride 10 mg oral capsule (5 sources) Anticholinergic Start: 08-23-2025 End: 08-27-2025 take 1 capsule by mouth four times daily as needed for pain dicyclomine (Bentyl) 10 MG capsule Take 1 capsule (10 mg) by mouth 4 times daily as needed (Abdominal pain) for up to 4 days. 12 capsule 08/23/2025 08/27/2025 Active Start: 03-06-2014 dicyclomine (B ENTYL) 10 MG [...] glucose, # 2 EA, 11 Refill(s), Pharmacy: [facility] [place], 178, cm, 03/02/25 11:36:00 EDT, Height, 117.3, kg, 03/02/25 11:36:00 EDT, Dosing Weight Start Date: 03/19/25 Status: Ordered Medication Dispense Status: Completed Quantity: 2.0 Unit: EA Total Allowed Fills: 12 Fills Dispensed: 0 Start: 03-19-2025 DME MISCellane ous See Instructions, Libre3+ Sensors #2 sensors. Apply sensor to arm once every 14 days to monitor glucose, # 2 EA, 11 Refill(s), Pharmacy: [facility] [place], 178, cm, 03/02/25 11:36:00 EDT, Height, 117.3, kg, 03/02/25 11:36:00 EDT, Dosing Weight Start Date: 03/19/25 Status: Ordered Quantity: 2.0 Unit: EA Repeat number: 12 Start: 04-12-2024 DME MISCellane ous See Instructions, Libre3 [place] Use reader to scan sensor to monitor sugars, # 1 EA, 0 Refill(s), [facility]: [facility] #[id number], 177.8, cm, 04/05/24 14:15:00 EDT, Height, 114.1, kg, 04/05/24 14:16:00 EDT, Dosing Weight Start Date: 04/12/24 Status: Ordered Medication Dispense Status: Completed Quantity: 1.0 Unit: EA Total Allowed Fills: 1 Fills Dispensed: 0 Start: 04-12-2024 DME MISCellane ous See Instructions, [employer]3 [place] Use reader to scan sensor to monitor sugars, # 1 EA, 0 Refill(s), Pharmacy: [facility] #[id number], 177.8, cm, 04/05/24 14:15:00 EDT, Height, 114.1, kg, 04/05/24 14:16:00 EDT, Dosing Weight Start Date: 04/12/24 Status: Ordered Quantity: 1.0 Unit: EA Repeat number: 1 Start: 04-12-2024 DME MISCellane ous See Instructions, [employer] [place] Use reader to scan sensor to monitor sugars, # 1 EA, 0 Refill(s), [facility]: [facility] #[id number], 177.8, cm, 04/05/24 14:15:00 EDT, Height, 114.1, kg, 04/05/24 14:16:00 EDT, Dosing Weight Start Date: 04/12/24 Status: Ordered Start: 04-12-2024 DME MISCellane ous See Instructions, Libre3 Sensors #2 sensors. Apply sensor to arm once every 14 days to monitor glucose, # 2 EA, 11 Refill(s), [facility]: [facility] #[id number], 177.8, cm, 04/05/24 14:15:00 EDT, Height, 114.1, kg, 04/05/24 14:16:00 EDT, Dosing Weight Start Date: 04/12/24 Status: Ordered Start: 01-07-2024 DME MISCellane ous See Instructions, Libre2 Sensors. Apply sensor to back of arm once every 14 days to monitor glucose., # 2 EA, 11 Refill(s), Pharmacy: [facility] #[id number], 177.8, cm, 12/27/23 11:06:00 EST, Height, 115.4, kg, 12/27/23 11:06:00 EST, Dosing Weight Start Date: 01/07/24 Status: Ordered Start: 02-12-2023 DME MISCellane ous See Instructions, Libre2 [place]. Use reader to scan sensor once every 8 hours., # 1 EA, 0 Refill(s), Pharmacy: [facility] [place], 180.3, cm, 02/12/23 8:53:00 EDT, Height, 118.7 Start Date: 02/12/23 Status: Ordered Start: 02-12-2023 DME MISCellane ous See Instructions, Libre2 Sensors. Apply sensor to back of arm once every 14 days to monitor glucose., # 2 EA, 11 Refill(s), Pharmacy: [facility], 180.3, cm, 02/12/23 8:53:00 EDT, Height, 118.7 Start Date: 02/12/23 Status: Ordered doxycycline hyclate 100 mg oral capsule (1 source) Tetracycline-class Drug Start: 09-21-2025 End: 10-01-2025 doxycycline hyclate 100 mg oral capsule Dose : 100 mg = 1 cap(s), Oral, BID, X 10 day(s), # 20 cap(s), 0 Refill(s), 10/01/25 10:43:00 AM EST, Pharmacy: [facility]/pharmacy #[id number], Acute rhinosinusitis, 180, cm, 09/21/25 10:06:00 EDT, Height, 109, kg, 09/21/25 10:06:00 EDT, Dosing Weight Start Date: 09/21/25 Stop Date: 10/01/25 Status: Ordered Medication Dispense Status: Completed Quantity: 20.0 Unit: cap(s) Total Allowed Fills: 1 Fills Dispensed: 0 Indications: Acute sinusitis, unspecified; 0.5 ml dulaglutide 3 mg/ml auto-injector (15 sources) GLP-1 Receptor Agonist Start: 07-11-2025 inject 1 dose by subcutaneous injection every week Trulicity Pen 1.5 mg/0.5 mL subcutaneous solution Dose : 1.5 mg =, Subcutaneous, qWeek, rotate injection sites, # 2 mL, 3 Refill(s), Pharmacy: [facility] [place], 180, cm, 06/18/25 13:14:00 EDT, Height, kg, 07/11/25 10:05:00 EDT, Dosing Weight Start Date: 07/11/25 Status: Ordered Medication Dispense Status: Completed Quantity: 2.0 Unit: mL Total Allowed Fills: 4 Fills Dispensed: 0 Start: 07-05-2025 Dulaglutide (T rulicity) 0.75 mg/0.5 mL pen injector Active 0.75 mg SC EVERY WEEK July 05, 2025 12:00am Start: 06-13-2025 inject 1 dose by sub cutaneous injection every week Trulicity Pen 0.75 mg/0.5 mL subcutaneous solution Dose : 0.75 mg =, Subcutaneous, qWeek, rotate injection sites, # 2 mL, 1 Refill(s), Pharmacy: [facility] [place], 180, cm, 05/10/25 11:54:00 EDT, Height, kg, 05/10/25 11:54:00 EDT, Dosing Weight Start Date: 06/13/25 Status: Ordered Quantity: 2.0 Unit: mL Repeat number: 2 Dulaglutide (BERNARDO LICITY SC) Inject under the skin. Active escitalopram 10 mg oral tablet (20 sources) Serotonin Reuptake Inhibitor Start: 09-17-2021 End: 02-16-2026 escitalopram (Lexapro) 10 MG tablet 10 mg. 12/27/2023 Active Start: 06-20-2010 take 40 mg by mouth once daily Lexapro 40 mg, PO, Daily, 0 Refill(s), current med (Hx) Start Date: 06/20/10 Status: Ordered Start: 04-09-2008 End: 05-02-2024 take 1 tablet by mouth once daily Escitalopram Oxalate 20 MG tablet Discontinued 20 mg PO DAILY April 13, 2016 12:00am May 02, 2024 1:55pm 1 ml etanercept 50 mg/ml prefilled syringe (12 sources) Tumor Necrosis Factor Sisi Start: 08-13-2023 [...] qDay, # 90 tab(s), 3 Refill(s), Pharmacy: [facility] [place], 178, cm, 11/01/24 14:02:00 EST, Height, kg, [...] # 16 gram(s), 11 Refill(s), [facility]acy: [id number] [place] [address], Acute sinusitis, 179.5, cm, 01/05/22 9:21:00 EST, Height, kg, 01/05/22 9:21:00 EST, Dosing Weight Start Date: 01/05/22 Stop Date: 12/31/22 Status: Ordered fluticasone propionate 0.05 mg/actuat metered dose nasal spray (20 sources) Corticosteroid Start: 04-05-2024 End: 03-14-2026 take 1 dose nasal route once daily Flonase 50 mcg/inh nasal spray Dose = 1 spray(s), Nostril, each, qDay, # 16 gram(s), 11 Refill(s), Pharmacy: [facility], Acute sinusitis, 178, cm, 03/02/25 11:36:00 [...] qDay, # 16 gram(s), 11 Refill(s), Pharmacy: [facility], Acute sinusitis, 180.3, cm, 02/12/23 8:53:00 [...] 16 gram(s), 11 Refill(s), [facility]: [facility] #[id number], Acute sinusitis, 177.8, cm, 04/05/24 14:15:00 EDT, Height, kg, 04/05/24 14:16:00 EDT, Dosing Weight 01/05/2022 Active Start: 01-05-2022 End: 12-31-2022 take 1 dose nasal route once daily Flonase 50 mcg/inh nasal spray Dose = 1 spray(s), Nostril, each, qDay, # 16 gram(s), 11 Refill(s), [facility]: [facility] [facility], Acute sinusitis, 179.5, cm, 01/05/22 9:21:00 EST, Height, kg, 01/05/22 9:21:00 EST, Dosing Weight Start Date: 01/05/22 Stop Date: 12/31/22 Status: Ordered gabapentin 400 mg oral capsule (20 sources) Anti-epileptic Agent Start: 06-29-2024 End: 09-27-2024 gabapentin (Neurontin) 400 MG capsule 400 mg. 06/29/2024 Active Start: 07-08-2022 gabapentin 400 mg oral capsule Dose : 400 mg = 1 cap(s), Oral, BID, 0 Refill(s), 116 Start Date: 07/08/22 Status: Ordered Start: 06-03-2021 End: 09-11-2024 take 1 capsule by mouth twice daily Gabapentin 100 mg capsule Discontinued 100 mg PO TWICE A DAY February 10, 2022 12:00am September 11, 2024 9:05am glimepiride 2 mg oral tablet (20 sources) Sulfonylurea Start: 07-20-2021 End: 10-24-2023 take 2 tablets by mouth at breakfast, then take 1 tablet by mouth at dinner glimepiride (Amaryl) 2 MG tablet See Instructions, Take 2 tablets (4mg) by mouth with breakfast and 1 tablet (2mg) with dinner, # 90 tab(s), 3 Refill(s), Pharmacy: [facility], 179.6, cm, 04/13/24 10:38:00 EDT, Height, kg, 04/13/24 10:38:00 EDT, Dosing Weight 08/13/2023 Active Start: 01-02-2021 take 1 tablet by geovani [...] 50 MG capsule Start: 01-12-2015 End: 05-02-2024 take 1 capsule by mouth at bedtime Hydroxyzine Pamoate (Vistaril) 25 mg capsule Discontinued 25 mg PO AT BEDTIME February 10, 2022 12:00am May 02, 2024 1:56pm hydrOXYzine Pamo ate (VISTARIL PO) Take by mouth 2 times daily 0 Active hydrOXYzine Pamo ate (VISTARIL PO) Take by mouth 0 Active insulin lispro 100 unt/ml injectable solution (2 sources) Insulin Analog Start: 09-11-2021 insulin lispro (HUMALOG) injection vial 0-12 Units labetalol hydrochloride 5 mg/ml injectable solution (1 source) beta-Adrenergi c Sisi Start: 09-11-2021 labetalol (NORMODYNE;TRANDATE) injection 5 mg lactobacillus acidophilus [id number] unt oral capsule (6 sources) Start: 02-10-2022 take 1 capsule by mouth once daily Lactobacillus Acidophilus (Probiotic Gold Acidophilus) 1 billion cell capsule Active 1000 MMU CELLS PO DAILY February 10, 2022 12:00am Start: 01-05-2022 End: 02-04-2022 take 1 capsule by mouth once daily Acidophilus Probiotic Blend oral capsule Dose = 1 cap(s), Oral, qDay, # 30 cap(s), 0 Refill(s), [facility]: [facility] [address] [facility], 179.5, cm, 01/05/22 9:21:00 EST, Height, kg, 01/05/22 9:21:00 EST, Dosing Weight Start Date: 01/05/22 Stop Date: 02/04/22 Status: Ordered 10 ml lidocaine hydrochloride 10 mg/ml injection (1 source) Antiarrhythmic, Amide Local Anesthetic Start: 09-11-2021 End: 09-11-2021 lidocaine PF 1 % injection 1 mL loratadine 10 mg oral tablet (1 source) Start: 09-21-2025 End: 10-05-2025 loratadine 10 mg oral tablet Dose : 10 mg = 1 tab(s), Oral, qDay, X 14 day(s), # 14 tab(s), 0 Refill(s), 10/05/25 10:43:00 AM EST, Pharmacy: [facility]/pharmacy #[id number], Acute rhinosinusitis, 180, cm, 09/21/25 10:06:00 EDT, Height, kg, 09/21/25 10:06:00 EDT, Dosing Weight Start Date: 09/21/25 Stop Date: 10/05/25 Status: Ordered Medication Dispense Status: Completed Quantity: 14.0 Unit: tab(s) Total Allowed Fills: 1 Fills Dispensed: 0 Indications: Acute sinusitis, unspecified; meloxicam 15 mg oral tablet (20 sources) Nonsteroidal Anti-inflammatory Drug Start: 02-12-2023 Mobic 15 MG table t 15 mg. 02/12/2023 Active Start: 08-13-2022 Mobic 15 mg or al tablet Dose : 15 mg = 1 tab(s), Oral, qDay, # 30 tab(s), 5 Refill(s), Pharmacy: [facility], 179, cm, 08/13/22 9:10:00 EDT, Height Start Date: 08/13/22 Status: Ordered Start: 05-14-2022 End: 09-11-2022 Mobic 7.5 mg oral tablet Dos e : 7.5 mg = 1 tab(s), Oral, qDay, # 30 tab(s), 3 Refill(s), [facility]: [facility], 180, cm, 05/14/22 9:29:00 EDT, Height Start Date: 05/14/22 Stop Date: 09/11/22 Status: Ordered Start: 07-16-2021 take 0.5 tablet by m out once daily meloxicam (MOBIC) 15 MG tablet Take 0.5 tablets by mouth daily 30 tablet 2 07/16/2021 Active Start: 06-11-2021 take 1 tablet by geovani once daily meloxicam (MOBIC) 7.5 MG tablet [...] 10, 2022 12:00am Start: 10-22-2021 End: 10-01-2025 metFORMIN (Glucophage) 500 M G tablet Take by mouth. 10/22/2021 Active Start: 08-04-2021 metFORMIN (GLU COPHAGE) 500 MG [...] succinate 25 mg extended release oral tablet (20 sources) beta-Adrenergic Sisi Start: 06-26-2024 take 1 tablet by mouth every twenty-four hours metoprolol succinate XL (Toprol-XL) [...] Start: 12-27-2019 take 1 tablet by geovani twice daily as needed for pain naproxen (NAPROSYN) 500 MG tablet Take 1 tablet by mouth 2 times daily as needed for Pain 28 tablet 0 12/27/2019 Active omeprazole 40 mg delayed release oral capsule (20 sources) Proton Pump Inhibitor Start: 05-14-2022 End: 10-29-2025 omeprazole 40 mg oral delayed release capsule Dose : 40 mg = 1 cap(s), Oral, qDay, # 90 cap(s), 3 Refill(s), Pharmacy: [facility] [place], 178, cm, 11/01/24 14:02:00 EST, Height, kg, 11/01/24 14:02:00 EST, Dosing Weight Start Date: 11/03/24 Stop Date: 10/29/25 Status: Ordered Medication Dispense Status: Completed Quantity: 90.0 Unit: cap(s) Total Allowed Fills: 4 Fills Dispensed: 0 Start: 08-04-2021 take 1 capsule by mo ut once daily before breakfast omeprazole (PRILOSEC) 20 MG delayed release capsule Indications: Gastroesophageal reflux disease without esophagitis Take 1 capsule by mouth every morning (before breakfast) 90 capsule 1 08/04/2021 Active Start: 12-27-2020 take 1 capsule by mo ut once daily before breakfast omeprazole (PRILOSEC) 20 MG delayed release capsule Indications: Gastroesophageal reflux disease without esophagitis Take 1 capsule by mouth every morning (before breakfast) 30 capsule 5 12/27/2020 Active Start: 01-28-2015 omeprazole (AL ILOSEC) 20 MG delayed release capsule Take 20 mg by mouth 0 01/28/2015 Active 1 ml promethazine hydrochloride 25 mg/ml injection (1 source) Phenothiazine Start: 09-11-2021 End: 09-11-2021 promethazine (PHENERGAN) injection 6.25 mg Skyrizi (19 sources) Start: 08-25-2023 Skyrizi q4wk, 0 Refill(s) Start Date: 08/25/23 Status: Ordered Medication Dispense Status: Completed Total Allowed Fills: 1 Fills Dispensed: 0 Start: 08-25-2023 Skyrizi q4wk, 0 Refill(s) Start Date: 08/25/23 Status: Ordered Repeat number: 1 Start: 08-25-2023 Skyrizi q4wk, 0 Refill(s) Start Date: 08/25/23 Status: Ordered Skyrizi Pen 150 MG/ML solution auto-injector (11 sources) Start: 02-11-2024 Skyrizi Pen 150 MG/ML [...] Active tamsulosin hydrochloride 0.4 mg oral capsule (11 sources) alpha-Adrenergic Sisi Start: 06-18-2025 End: 09-16-2025 tamsulosin 0.4 mg oral capsule Dose : 0.4 mg = 1 cap(s), Oral, qDay, # 90 cap(s), 0 Refill(s), Pharmacy: [facility] [place], 180, cm, 08/22/25 10:41:00 EDT, Height, kg, 08/22/25 10:41:00 EDT, Dosing Weight Start Date: 09/11/25 Status: Ordered Medication Dispense Status: Completed Quantity: 90.0 Unit: cap(s) Total Allowed Fills: 1 Fills Dispensed: 0 Start: 02-21-2025 End: 03-07-2025 Flomax 0.4 mg oral capsule D ose : 0.4 mg = 1 cap(s), Oral, qDay, # 14 cap(s), 0 Refill(s), Pharmacy: [facility] [place], Kidney stone, 178, cm, 02/21/25 15:12:00 EDT, Height, kg, 02/21/25 15:12:00 EDT, Dosing Weight Start Date: 02/21/25 Stop Date: 03/07/25 Status: Ordered Medication Dispense Status: Completed Quantity: 14.0 Unit: cap(s) Total Allowed Fills: 1 Fills Dispensed: 0 Indications: Calculus of kidney; tiZANidine 4 mg oral tablet (20 sources) Central alpha-2 Adrenergic Agonist Start: 06-23-2023 tiZANidine (Zanaflex ) 4 MG tablet 4 mg. 06/23/2023 Active Start: 04-27-2023 tiZANidine 4 m g oral tablet Dose : 4 mg = 1 tab(s), Oral, q8h, # 90 tab(s), 1 Refill(s), Pharmacy: [facility] [place], 180.3, cm, 02/12/23 8:53:00 EDT, Height, kg, 02/12/23 8:53:00 EDT, Dosing Weight Start Date: 04/27/23 Status: Ordered Start: 01-13-2023 tiZANidine 4 m g oral tablet Dose : 4 mg = 1 tab(s), Oral, q8h, one time refill in lieu of pcp transistion, # 90 tab(s), 0 Refill(s), Pharmacy: [facility], 179, cm, 10/22/22 9:42:00 EST, Height, kg, 10/22/22 9:42:00 EST, Dosing Weight Start Date: 01/13/23 Status: Ordered traMADol hydrochloride 50 mg oral tablet (1 source) Opioid Agonist Start: 03-19-2025 End: 04-02-2025 traMADol 50 mg oral tablet Dose : 50 mg = 1 tab(s), Oral, q6h, PRN for pain, X 14 day(s), # 28 tab(s), 0 Refill(s), 04/02/25 7:18:00 PM EDT, Pharmacy: [facility] [place], Dental abscess, 178, cm, 03/02/25 11:36:00 EDT, Height, 117.3, kg, 03/02/25 11:36:00 EDT, Dosing Weight Start Date: 03/19/25 Stop Date: 04/02/25 Status: Ordered Quantity: 28.0 Unit: tab(s) Repeat number: 1 Indications: Periapical abscess without sinus; Vitamin D3 125 mcg (5000 intl units) oral capsule (20 sources) Start: 07-09-2025 End: 07-04-2026 take 1 capsule by mouth once, then take 1 capsule by mouth once daily Vitamin D3 125 mcg (5000 intl units) oral capsule Dose : 125 mcg = 1 cap(s), Oral, qDay, # 90 cap(s), 3 Refill(s), Pharmacy: [facility] [place], Vitamin D deficiency, 180, cm, 06/18/25 13:14:00 [...] qDay, # 90 cap(s), 3 Refill(s), Pharmacy: [facility] [place], Vitamin D deficiency, 179.6, cm, 04/13/24 10:38:00 [...] qDay, # 90 cap(s), 3 Refill(s), Pharmacy: [facility] [place], Vitamin D deficiency, 179.6, cm, 04/13/24 10:38:00 EDT, Height, kg, 04/13/24 10:38:00 EDT, Dosing Weight Start Date: 06/29/24 Stop Date: 06/24/25 Status: Ordered Start: 12-27-2023 End: 12-21-2024 Vitamin D3 125 mcg (5000 int l units) oral capsule Dose : 125 mcg = 1 cap(s), Oral, qDay, # 90 cap(s), 3 Refill(s), Pharmacy: [facility] #[id number], Vitamin D deficiency, 177.8, cm, 12/27/23 11:06:00 EST, Height, kg, 12/27/23 11:06:00 EST, Dosing Weight Start Date: 12/27/23 Stop Date: 12/21/24 Status: Ordered Start: 02-24-2023 End: 02-19-2024 Vitamin D3 125 mcg (5000 int l units) oral capsule Dose : 125 mcg = 1 cap(s), Oral, qDay, # 90 cap(s), 3 Refill(s), Pharmacy: [facility] [place], Vitamin D deficiency, 180.3, cm, 02/12/23 8:53:00 [...] # 30 cap(s), 0 Refill(s), Pharmacy: [facility] 179.5, cm, 01/05/22 9:21:00 [...] # 100 gram(s), 1 Refill(s), Pharmacy: [facility] #[id number], Gel, 180.3, cm, 09/07/23 14:04:00 EDT, Height, 117.8, kg, 09/07/23 13:39:00 EDT, Dosing Weight Start Date: 09/07/23 Stop Date: 11/06/23 Status: Ordered dimenhyDRINATE 50 mg oral tablet (1 source) Start: 09-11-2021 End: 09-11-2021 dimenhyDRINATE (DRAMAMINE) tablet 100 mg famotidine 20 mg oral tablet (1 source) Histamine-2 Receptor Antagonist Start: 09-11-2021 End: 09-11-2021 famotidine (PEPCID) tablet 20 mg 12 hr guaiFENesin 600 mg extended release [...] tab(s), 0 Refill(s), 01/12/22 10:40:00 EST, Pharmacy: [facility] [address], 179.5, cm, 01/05/22 9:21:00 EST, Height, kg, 01/05/22 9:21:00 EST, Dosing Weight Start Date: 01/05/22 Stop Date: 01/12/22 Status: Ordered indocyanine green (IC-GREEN) syringe 2.5 mg (1 source) Start: 09-11-2021 End: 09-11-2021 indocyanine green (IC-GREEN) syringe 2.5 mg 1 ml ketorolac tromethamine 15 mg/ml cartridge (2 sources) Nonsteroidal Anti-inflammatory Drug, Cyclooxygenase Inhibitor Start: 08-23-2025 End: 08-23-2025 15 mg, IntraVENous, Once, On [facility] 08/23/25 at 2049, For 1 dose 1 ml LORazepam 2 mg/ml injection (2 sources) Benzodiazepine Start: 04-01-2024 End: 04-01-2024 LORazepam (Ativan) injection 1 mg Start: 04-01-2024 End: 04-01-2024 LORazepam (Ativan) injection 1 mg 1 ml morphine sulfate 4 mg/ml cartridge (1 source) Opioid Agonist Start: 09-02-2021 End: 09-02-2021 morphine injection 6 mg 2 ml ondansetron 2 mg/ml injection (15 sources) Serotonin-3 Receptor Antagonist Start: 08-23-2025 End: 08-23-2025 4 mg, IntraVENous, Once, On [facility] 08/23/25 at 2049, For 1 dose Start: 08-23-2025 End: 08-30-2025 take 1 tablet by mouth every eight hours as needed for nausea and vomiting ondansetron ODT (Zofran-ODT) 4 MG disintegrating tablet Take 1 tablet (4 mg) by mouth every 8 hours as needed for nausea or vomiting for up to 7 days. 12 tablet 08/23/2025 08/30/2025 Active Start: 08-01-2025 End: 08-08-2025 Zofran 4 mg oral tablet Dose : 4 mg = 1 tab(s), Oral, q8h, # 21 tab(s), 0 Refill(s), Pharmacy: [facility] #[id number], Epigastric pain, 180, cm, 08/01/25 17:08:00 [...] for Nausea 12 tablet 0 08/29/2021 Active Probiotic 10 Ultra Strength oral capsule (9 sources) Start: 03-02-2025 End: 03-16-2025 Probiotic 10 Ultra Strength oral capsule Dose = 1 cap(s), Oral, qDay, may substitute for generic insurance preferred probiotic. I would like him to be on this d/t being on clindamycin., # 14 cap(s), 0 Refill(s), Pharmacy: [facility], Abscess of right jaw, 178, cm, [...] clindamycin., # 14 cap(s), 0 Refill(s), Pharmacy: [facility], Abscess of right jaw, 178, cm, 03/02/25 11:36:00 EDT, Height, kg, 03/02/25 11:36:00 EDT, Dosing Weight Start Date: 03/02/25 Stop Date: 03/16/25 Status: Ordered Quantity: 14.0 Unit: cap(s) Repeat number: 1 Indications: Inflammatory conditions of jaws; 50 ml sodium chloride 9 mg/m l injection (8 sources) Start: 08-23-2025 End: 08-23-2025 1,000 mL, IntraVENous, at 1, 000 mL/hr, Administer over 1 Hours, Once, On [facility] 08/23/25 at 2049, For 1 dose Start: 05-07-2022 End: 05-07-2022 0.9 % sodium [...] achs, # 28 tab(s), 0 Refill(s), [id number], Epigastric pain, 180, cm, 08/01/25 17:08:00 EDT, Height, kg, 08/01/25 17:08:00 EDT, Dosing Weight Start Date: 08/01/25 Stop Date: 08/08/25 Status: Ordered Medication Dispense Status: Completed Quantity: 28.0 Unit: tab(s) Total Allowed Fills: 1 Fills Dispensed: 0 Indications: Epigastric pain; Problems Active Problems Problem Classification Problem Date Documented Da te Episodic/Chronic Abdominal pain (10 sources) Abdominal pain; Translations: [Unspecified abdominal pain] [...] vomiting (1 source) Nausea; Translations: [Nausea] Episodic Other aftercare (1 source) Long-term current use of drug therapy; Translations: [Other library consultant (current) drug therapy] Episodic Other aftercare (1 [...] [Pain in left finger(s)] 09-23-2024 Episodic Other ear and sense organ disorders [...] [Pain in joint, lower leg] Episodic Other non-traumatic joint disorders (3 sources) Chronic ankle pain 08-22-2025 Episodic Other non-traumatic joint disorders (10 sources) Swelling of finger joint; Translations: [Effusion, left hand] 10-01-2025 Episodic Other non-traumatic joint disorders (2 sources) Effusion, right hand; Translations: [Effusion, right hand] Onset: 5 Episodic Other non-traumatic joint disorders (2 sources) Effusion, left hand; Translations: [Effusion, left hand] Onset: 5 Episodic Other nutritional; endocrine; and metabolic disorders (20 sources) Body mass index 30+ - obesity 11-03-2021 Chronic Other skin disorders (1 source) Axillary hidradenitis suppurativa Episodic Regional enteritis and ulcerative colitis (6 sources) Crohn's disease; Translations: [Crohn's disease, unspecified, without complications] 02-26-2022 Chronic Residual codes; unclassified (18 sources) FH: Thyroid disorder 02-12-2023 Episodic Residual codes; unclassified (9 sources) Swelling of finger of left hand 08-14-2024 Episodic Schizophrenia and other psychotic disorders (20 sources) Schizophrenia; Translations: [Schizophrenia, unspecified] Onset: 8 02-15-2020 Chronic Spondylosis; intervertebral disc disorders; other back problems (2 sources) Other cervical disc degeneration, unspecified cervical region; Translations: [Spondylosis without myelopathy or radiculopathy, cervical region] Onset: 5 Chronic Spondylosis; intervertebral disc disorders; other back problems (20 sources) Cervical nerve root pain; Translations: [Radiculopathy, cervical region] Onset: 0 Resolved: 1 12-27-2020 Episodic Unclassified (1 source) Abdominal pain of multiple sites; Translations: [Abdominal pain of multiple sites] Onset: 5 Past or Other Problems Problem Classification Problem Date Documented Date Episodic/Chronic Biliary tract disease (20 sources) Cholelithiasis without obstruction; Translations: [Calculus of gallbladder without cholecystitis without obstruction] Onset: 09-01-2021 Episodic Disorders of teeth and jaw (4 sources) Periapical abscess; Translations: [Periapical abscess without sinus] Onset: 03-02-2025 Episodic Gastritis and duodenitis (20 sources) Gastritis; Translations: [Gastritis, unspecified, without bleeding] Onset: 11-22-2013 01-19-2020 Episodic Nonspecific chest pain (6 sources) Chest pain; Translations: [Chest pain, unspecified] Onset: 06-18-2025 Episodic Other screening for suspected conditions (not mental disorders or infectious disease) (2 sources) Other specified abnormal findings of blood chemistry; Translations: [Other abnormal blood chemistry] Onset: 03-02-2025 Episodic Residual codes; unclassified (2 sources) Postoperative state; Translations: [Other specified postprocedural states] Onset: 09-29-2021 Resolved: 10-29-2021 10-29-2021 Episodic Unclassified (1 source) Abdominal pain of multiple sites; Translations: [Abdominal pain of multiple sites] Onset: 08-23-2025 Results Test Name Value Interpretation Reference Range Facility MR/PATVadim 10-02-2025 MR/PATPARAM [facility] Medical Records Department [address] [place] [address] PAT - Anesthesia 10/02/25 1530 MR#: [id number] Acct: [id number] Name: LEOENL LAKE Rep #: [id number] : 1985 39 From: Shiv Sunshine MD PCP: Wanda Mata DRAG CAR RACER-C Status:PRE [facility] [place] Y Race: C Location: [facility] [place] Pre-Assessment Diagnosis/Proposed Procedure Planned Operative Procedure(s): CERVICAL RFA C4,5,6,7 UNDER FLUOROSCOPY Anesthesia History 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 When Was Last Pacemaker Check QUESTION #4 FULL TEXT: You/Your Family Experience fever (hyperthermia) with Anesthesia Last Oral Intake Last Oral intake: Last Oral Intake NPO since Meds taken in AM with sips of water? Meds patient instructed to take am of surgery PONV PONV - nylon mender: PONV - nylon mender Female No 10/02/25 08:18 HX of Motion Sickness No 10/02/25 08:18 HX of N/V After Surgery No 10/02/25 08:18 Non-Smoker Yes 10/02/25 08:18 Duration of Surgery greater No 10/02/25 08:18 than 60 minutes Number of Risk Factors 1 10/02/25 08:18 PONV Score Low Risk 10/02/25 08:18 Height Weight Height Weight: Anesthesia: Height Weight Height 5 ft 11 in 08/06/25 08:17 Respiratory Assessment Respiratory Assessment - nylon mender: Respiratory Tract Infection Hx - nylon mender Hx Respiratory Tract Infection No 10/02/25 08:18 STOP Sleep Apnea STOP Sleep Apnea - nylon mender: STOP Sleep Apnea - nylon mender Hx Hypertension No 10/02/25 08:18 Hx Sleep Apnea No 10/02/25 08:18 CPAP BIPAP Do you snore loudly (louder No 10/02/25 08:18 than talking or can be heard Do you often feel tired/ No 10/02/25 08:18 fatigued/ sleepy during daytime? Has anyone observed you stop No 10/02/25 08:18 breathing during sleep? STOP Results Negative 10/02/25 08:18 QUESTION #5 FULL TEXT : Do you snore loudly (louder than talking or can be heard through closed doors)? 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 Specify any problems Hx of Preganancy in last 3 N/A 10/02/25 08:18 Months Nurse Filling Out Transfusion DSCHRIBER 10/02/25 08:18 Questions: Date: 10/02/25 10/02/25 08:18 Time: 08:19 10/02/25 08:18 Patient unable to answer at this time (ie. confused, unrespo /Reproduction History /Reproductive History - nylon mender: /Reproductive Hx- nylon mender Hx Now No 10/02/25 08:18 Gestational Age (in weeks): EDC: Hx Hx Para Hx Section SAB No 10/02/25 08:18 Does the father of the baby or his family experience fever w Father of the baby Malignant Hypertension history comment [facility] Medical History (Updated 10/02/25 @ 08:28 by Heather Richmond) Wears glasses Wears partial dentures Arthritis High cholesterol Restless legs Pain Migraine headache Injury of head and neck Seizures Dietary restriction Gastric reflux History of stress test Heart murmur Back pain Cardiology follow-up encounter Schizophrenia Bipolar [...] Medications ???Medication ???Instructions ???Recorded ???Last Taken ???Type (more content not included)... Normal [facility] 29on 10-01-2025 29 Addended by: ERNESTINE MIKE on: 10/01/2025 12:59 PM Modules accepted: Level of Service Normal [facility] Office Visiton 10-01-2025 Follow-up visit [id number] Leonel Lake 1985 M Date Provider Department Center 10/01/2025 [id number]-ZOMISNZKERNESTINE MARQUEZ [facility] WAD None Family History Problem Relation Age of Onset Asthma Mother No Known Problems Father Comments: not close Arthritis Mother No Known Problems Brother No Known Problems Paternal Grandmother Hypotension Maternal Grandfather Stroke Maternal Grandfather Cancer Maternal Grandmother No Known Problems Paternal Grandfather Family Status - Relation Status Age at Mother Alive Father Other Brother Alive Paternal Grandmother Maternal Grandfather Maternal Grandmother Paternal Grandfather Level of Service:30232 AL OFFICE/OUTPATIENT NEW LOW MDM 30 MINUTES Reason for Visit and Comments: New Patient [[id number]] - Left Hand, Long Finger Pain Normal [facility] Progress Noteon 10-01-2025 Progress Note [facility] [address] [place] [address] [place] [address] Dept: [phone] Dept Chief Complaint Patient presents with New Patient Left Hand, Long Finger Pain Subjective History of Present Illness: Leonel Lake is a 39 y.o. right hand dominant male who presents today for evaluation of left long finger pain. States this issue has been going on for over a year. Notes the PIP joint of the long finger has been swelling, is not going down and flares up with pain for over a year. Says when he bend the finger, there is sharp pain around the joint. Mentions it feels tight and can't fully make a fist. Notes he didn't do anything to injury the finger. Location: PIP joint Onset: 1 year, chronic Injury: no Quality: aching, pressure, tight/stiff, and sharp Mechanical symptoms: no Radiation of symptoms: no Severity: 9/10 at rest and 9/10 at worst Exacerbating factor(s): repetitive use, gripping, and pinching Relieving factor(s): rest and activity modification Timing: all day Imaging to date: X-Ray Completed 09/23/24 Treatment to date: PT/OT/HEP: no Ice: yes, helpful Heat: yes, helpful Medications: Tylenol: yes, helpful NSAIDs: no Oral steroids: allergic to Prednisone Muscle relaxants: no Nerve medications: no Targeted injections: none Assistive devices: none Prior surgery: no Occupation: Disabled Objective There were no vitals taken for this visit. Physical Exam: General: Alert, well appearing, no acute distress. Respiratory: Breathing comfortably on room air. No respiratory distress. Skin: Warm, dry, intact. No visible rashes or erythema overlying area of focused exam. Physical Exam Musculoskeletal: Left hand: Swelling, deformity (Slight flexion contracture) and tenderness (Diffuse mild) present. Decreased range of motion (PIP long finger). Normal strength. Normal capillary refill. Normal pulse. Hands: Comments: Collateral ligaments intact, volar plates intact, extension and flexion tendons intact External Notes No pertinent notes available Labs Lab Results Component Value Date HGBA1C 9.5 (A) 07/16/2021 Lab Results Component Value Date CREATININE 0.88 08/23/2025 Imaging Images reviewed with patient today I have personally reviewed the images pertinent to the appointment today X-Ray Completed 09/23/24 LEFT HAND: CLINICAL INDICATION: Pain. TECHNIQUE: PA, Lat, and oblique COMPARISON: 08/27/2023. FINDINGS: There is no fracture or dislocation. No arthritic change is identified. No bone lesion is identified. There is no soft tissue abnormality. IMPRESSION: No acute osseous abnormality left hand. EMG/NCT N/A Procedure No procedures completed today Assessment Diagnosis Plan 1. Finger joint swelling, left XR fingers 2+ views left Ambulatory referral to Occupational Therapy Plan Unclear etiology for the initial injury as the patient does not recall any dislocation or sprain today we discussed the treatment spectrum of this illness/condition. From no change in treatment, to conservative treatments, to aggressive treatments including injections and surgery, and answered questions. We have today selected to proceed with formal physical therapy. Physical therapy will work on muscle range of motion, efficiency, endurance, strength, coordination ,balance and sequencing of neuro-muscular contractions. Physical therapy will set up the schedule of your visits, how many times a week, and will indicate when follow-up is appropriate. If the current course does not prove to be effective over the short term future, schedule a follow-up appointment to discuss and select an alternate course of therapy including possibly of injection, further imaging or surgical referral. No follow-ups on file. Ernestine Marquez MD 10/01/2025 10:44 AM Please note that portions of this note may have been completed with voice recognition software. Documentation reviewed prior to signing but minor errors in senior java programmer analyst may have occurred. Normal [facility] .Auto Diffon 09-13-2025 Basophil, Absolute 0.0 10 3/mcL Normal 0.0-0.3 [facility] [place] Comment on above: Performed By: #### U BELKYS, CMP, GFR, CRP, VIDH, LIPID, A1C, CBC, ADIFF, ANEU #### [address] [address] Basophils/100 WBC (Bld) 0.8 % Normal 0.0-2.5 [facility] Comment on above: Performed By: #### U BELKYS, CMP, GFR, CRP, VIDH, LIPID, A1C, CBC, ADIFF, ANEU #### [address] [address] Eosinophil, Absolute 0.4 10 3/mcL Normal 0.0-0.7 [facility] Comment on above: Performed By: #### U BELKYS, CMP, GFR, CRP, VIDH, LIPID, A1C, CBC, ADIFF, ANEU #### [address] [address] Eosinophils/100 WBC (Bld) 5.7 % Normal 0.0-6.0 [facility] Comment on above: Performed By: #### U BELKYS, CMP, GFR, CRP, VIDH, LIPID, A1C, CBC, ADIFF, ANEU #### [address] [place] [address] Lymphocyte, Absolute 1.3 10 3/mcL Normal 0.9-4.3 [facility] Comment on above: Performed By: #### U BELKYS, CMP, GFR, CRP, VIDH, LIPID, A1C, CBC, ADIFF, ANEU #### [address] [address] Lymphocytes/100 WBC (Bld) 21.4 % Normal 20.0-40.0 [facility] Comment on above: Performed By: #### U BELKYS, CMP, GFR, CRP, VIDH, LIPID, A1C, CBC, ADIFF, ANEU #### [address] [address] Monocyte, Absolute 0.6 10 3/mcL Normal 0.1-1.4 [facility] [place] Comment on above: Performed By: #### U BELKYS, CMP, GFR, CRP, VIDH, LIPID, A1C, CBC, ADIFF, ANEU #### [address] [address] Monocytes/100 WBC (Bld) 9.7 % Normal 2.0-13.0 [facility] Comment on above: Performed By: #### U BELKYS, CMP, GFR, CRP, VIDH, LIPID, A1C, CBC, ADIFF, ANEU #### [address] [address] Neutrophils/100 WBC (Bld) 62.4 % Normal 50.0-75.0 [facility] Comment on above: Performed By: #### U BELKYS, CMP, GFR, CRP, VIDH, LIPID, A1C, CBC, ADIFF, ANEU #### [address] [address] .GFRon 09-13-2025 Estimated Glomerular Filtration Rate 92 ml/min/1.73sqm Normal [facility] Comment on above: Result Comment: Stages of [...] the eGFR results. Performed By: #### U BELKYS, CMP, GFR, CRP, VIDH, LIPID, A1C, CBC, ADIFF, ANEU #### [address] [address] .NEUABSon 09-13-2025 Neutrophil, Absolute 3.9 10 3/mcL Normal 2.3-8.1 [facility] Comment on above: Performed By: #### U BELKYS, CMP, GFR, CRP, VIDH, LIPID, A1C, CBC, ADIFF, ANEU #### [address] [address] A1Con 09-13-2025 Glucose [Mass/Vol] 120 mg/dL Normal [facility] Comment on above: Result Comment: Rama mated Average Glucose calculated by equation ((28.7xA1C)-46.7) Estimated average glucose (eAG) is a calculated value from Hemoglobin A1C and is financial representative of the average blood glucose level in the last 2-3 month period. Normal range: less than 114 mg/dL Performed By: #### U BELKYS, CMP, GFR, CRP, VIDH, LIPID, A1C, CBC, ADIFF, ANEU #### [address] [address] HbA1c (Bld) [Mass fraction] 5.8 % Normal 4.3-6.4 [facility] Comment on above: Performed By: #### U BELKYS, CMP, GFR, CRP, VIDH, LIPID, A1C, CBC, ADIFF, ANEU #### [address] [address] CBCon 09-13-2025 Erythrocyte distribution width (RBC) [Ratio] 13.9 % Normal 11.5-15.5 [facility] Comment on above: Performed By: #### U BELKYS, CMP, GFR, CRP, VIDH, LIPID, A1C, CBC, ADIFF, ANEU #### [address] [address] Hematocrit (Bld) [Volume fraction] 45.4 % Normal 40.0-52.0 [facility] Comment on above: Performed By: #### U BELKYS, CMP, GFR, CRP, VIDH, LIPID, A1C, CBC, ADIFF, ANEU #### [address] [address] Hgb 15.5 G/dL Normal 13.0-17.5 [facility] Comment on above: Performed By: #### U BELKYS, CMP, GFR, CRP, VIDH, LIPID, A1C, CBC, ADIFF, ANEU #### [place] [address] MCH (RBC) [Entitic mass] 29.7 pg Normal 27.0-33.0 [facility] Comment on above: Performed By: #### U BELKYS, CMP, GFR, CRP, VIDH, LIPID, A1C, CBC, ADIFF, ANEU #### [address] [address] MCHC 34.1 G/dL Normal 32.0-36.0 [facility] Comment on above: Performed By: #### U BELKYS, CMP, GFR, CRP, VIDH, LIPID, A1C, CBC, ADIFF, ANEU #### [address] [address] MCV (RBC) [Entitic vol] 87.0 fL Normal 81.0-100.0 [facility] Comment on above: Performed By: #### U BELKYS, CMP, GFR, CRP, VIDH, LIPID, A1C, CBC, ADIFF, ANEU #### [address] [address] Platelet 269 10 3/mcL Normal 150-450 [facility] Comment on above: Performed By: #### U BELKYS, CMP, GFR, CRP, VIDH, LIPID, A1C, CBC, ADIFF, ANEU #### [address] [address] Platelet mean volume (Bld) [Entitic vol] 7.7 fL Normal 6.4-10.5 [facility] Comment on above: Performed By: #### U BLEKYS, CMP, GFR, CRP, VIDH, LIPID, A1C, CBC, ADIFF, ANEU #### [address] [address] RBC 5.22 10 6/mcL Normal 4.50-6.00 [facility] Comment on above: Performed By: #### U BELKYS, CMP, GFR, CRP, VIDH, LIPID, A1C, CBC, ADIFF, ANEU #### [address] [address] WBC 6.2 10 3/mcL Normal 4.5-10.8 [facility] Comment on above: Performed By: #### U BELKYS, CMP, GFR, CRP, VIDH, LIPID, A1C, CBC, ADIFF, ANEU #### [address] [address] CMPon 09-13-2025 Albumin Level 4.1 G/dL Normal 3.5-5.0 [facility] Comment on above: Performed By: #### U BELKYS, CMP, GFR, CRP, VIDH, LIPID, A1C, CBC, ADIFF, ANEU #### [address] [address] Albumin/Globulin [Mass ratio] 1.1 {ratio} Normal 1.1-2.5 [facility] Comment on above: Performed By: #### U BELKYS, CMP, GFR, CRP, VIDH, LIPID, A1C, CBC, ADIFF, ANEU #### [address] [address] ALP [Catalytic activity/Vol] 66 U/L Normal 40-135 [facility] Comment on above: Performed By: #### U BELKYS, CMP, GFR, CRP, VIDH, LIPID, A1C, CBC, ADIFF, ANEU #### [address] [address] ALT [Catalytic activity/Vol] 30 U/L Normal 16-63 [facility] Comment on above: Performed By: #### U BELKYS, CMP, GFR, CRP, VIDH, LIPID, A1C, CBC, ADIFF, ANEU #### [address] [address] AST [Catalytic activity/Vol] 18 U/L Normal 10-40 [facility] Comment on above: Performed By: #### U BELKYS, CMP, GFR, CRP, VIDH, LIPID, A1C, CBC, ADIFF, ANEU #### [address] [address] Bili Total 0.6 mg/dL Normal 0.2-1.0 [facility] Comment on above: Result Comment: Use of this assay is not recommended for patients undergoing treatment with eltrombopag due to the potential for falsely elevated results. Performed By: #### U BELKYS, CMP, GFR, CRP, VIDH, LIPID, A1C, CBC, ADIFF, ANEU #### [address] [address] BUN/Creatinine Ratio 14 ratio Normal 7-27 [facility] Comment on above: Performed By: #### U BELKYS, CMP, GFR, CRP, VIDH, LIPID, A1C, CBC, ADIFF, ANEU #### [address] [address] Calcium [Mass/Vol] 9.3 mg/dL Normal 8.4-10.2 [facility] Comment on above: Performed By: #### U BELKYS, CMP, GFR, CRP, VIDH, LIPID, A1C, CBC, ADIFF, ANEU #### [address] [address] Chloride [Moles/Vol] 106 mmol/L Normal 98-107 [facility] Comment on above: Performed By: #### U BELKYS, CMP, GFR, CRP, VIDH, LIPID, A1C, CBC, ADIFF, ANEU #### [address] [address] CO2 [Moles/Vol] 27 mmol/L Normal 22-29 [facility] Comment on above: Performed By: #### U BELKYS, CMP, GFR, CRP, VIDH, LIPID, A1C, CBC, ADIFF, ANEU #### [address] [address] Creatinine [Mass/Vol] 1.05 mg/dL Normal 0.67-1.17 [facility] Comment on above: Performed By: #### U BELKYS, CMP, GFR, CRP, VIDH, LIPID, A1C, CBC, ADIFF, ANEU #### [address] [address] Electrolyte Balance 8.0 mEq/L Normal 4.0-15.[address] [facility] Comment on above: Performed By: #### U BELKYS, CMP, GFR, CRP, VIDH, LIPID, A1C, CBC, ADIFF, ANEU #### [place] [address] Globulin 3.7 G/dL Normal 2.7-4.4 [facility] Comment on above: Performed By: #### U BELKYS, CMP, GFR, CRP, VIDH, LIPID, A1C, CBC, ADIFF, ANEU #### [address] [address] Glucose [Mass/Vol] 119 mg/dL High 70-105 [facility] Comment on above: Performed By: #### U BELKYS, CMP, GFR, CRP, VIDH, LIPID, A1C, CBC, ADIFF, ANEU #### [address] [address] Potassium [Moles/Vol] 4.0 mmol/L Normal 3.5-5.1 [facility] Comment on above: Performed By: #### U BELKYS, CMP, GFR, CRP, VIDH, LIPID, A1C, CBC, ADIFF, ANEU #### [address] [address] Sodium [Moles/Vol] 141 mmol/L Normal 136-145 [facility] Comment on above: Performed By: #### U BELKYS, CMP, GFR, CRP, VIDH, LIPID, A1C, CBC, ADIFF, ANEU #### [address] [address] Total Protein 7.8 G/dL Normal 6.4-8.2 [facility] Comment on above: Performed By: #### U BELKYS, CMP, GFR, CRP, VIDH, LIPID, A1C, CBC, ADIFF, ANEU #### [place] [id number] [place], [place] [address] Urea nitrogen [Mass/Vol] 15 mg/dL Normal 7-18 [facility] Comment on above: Performed By: #### U BELKYS, CMP, GFR, CRP, VIDH, LIPID, A1C, CBC, ADIFF, ANEU #### [address] [address] CRPon 09-13-2025 C-Reactive Protein 1.2 mg/dL High 0.0-0.3 [facility] Comment on above: Performed By: #### U BELKYS, CMP, GFR, CRP, VIDH, LIPID, A1C, CBC, ADIFF, ANEU #### [address] [address] LABORATORYOrdered By: SYSTEM SYSTEM on 09-13-2025 25-hydroxyvitamin D3 [Mass/Vol] 60.6 ng/mL Invalid Interpretation Code AO ADM SS Comment on above: Interpretive Data: I nterpretive Values Based on Total 25(OH) Vitamin D: Deficient <20 ng/mL Insufficient 20 - <30 ng/mL Sufficient 30-100 ng/mL Albumin BCP dye [Mass/Vol] 4.1 G/dL Normal 3.5 - 5.0 G/dL AO ADM SS Albumin/Globulin [Mass ratio] 1.1 {ratio} Normal 1.1 - 2.5 ratio AO ADM SS ALP [Catalytic activity/Vol] 66 U/L Normal 40 - 135 U/L AO ADM SS ALT With P-5'-P [Catalytic activity/Vol] 30 U/L Normal 16 - 63 U/L AO ADM SS AST With P-5'-P [Catalytic activity/Vol] 18 U/L Normal 10 - 40 U/L AO ADM SS Basophils (Bld) [#/Vol] 0.0 103/mcL Normal 0.0 - 0.3 10^3/mcL AO Workflow SS Basophils/100 WBC (Bld) 0.8 % Normal 0.0 - 2.5 % AO Workflow SS Bilirubin [Mass/Vol] 0.6 mg/dL Normal 0.2 - 1 .0 mg/dL AO ADM SS Comment on above: Interpretive Data: U se of this assay is not recommended for patients undergoing treatment with eltrombopag due to the potential for falsely elevated results. Calcium [Mass/Vol] 9.3 mg/dL Normal 8.4 - 10. 2 mg/dL AO ADM SS Chloride [Moles/Vol] 106 mmol/L Normal 98 - 10 7 mmol/L AO ADM SS CO2 [Moles/Vol] 27 mmol/L Normal 22 - 29 mmol/L AO ADM SS Creatinine [Mass/Vol] 1.05 mg/dL Normal 0.67 - 1.17 mg/dL AO ADM SS CRP [Mass/Vol] 1.2 mg/dL High 0.0 - 0.3 mg/dL AO ADM SS Electrolyte Balance 8.0 mEq/L Normal 4.0 - 15 .0 mEq/L AO ADM SS Eosinophil, Absolute 0.4 103/mcL Normal 0.0 - 0 .7 10^3/mcL AO Workflow SS Eosinophils/100 WBC (Bld) 5.7 % Normal 0.0 - 6.0 % AO Workflow SS Erythrocyte distribution width (RBC) [Ratio] 13.9 % Normal 11.5 - 15.5 % AO Workflow SS Globulin 3.7 G/dL Normal 2.7 - 4.4 G/dL AO ADM SS GLOMERULAR FILTRATION RATE/1.73 SQ M.PREDICTED:ARVRAT:PT :SER/PLAS/BLD:QN:CREA TININE-BASED FORMULA (CKD-EPI 2020) 92 ml/min/1.73sqm Invalid Interpretation Code AO Chemistry S [...] race factor to calculate the eGFR results. Glucose [Mass/Vol] 120 mg/dL Invalid Interpretation Code AO Chemistry S Comment on above: Interpretive Data: E stimated average glucose (eAG) is a calculated value from Hemoglobin A1C and is financial representative of the average blood glucose level in the last 2-3 month period. Normal range: less than 114 mg/dL Glucose [Mass/Vol] 119 mg/dL High 70 - 105 mg/dL AO ADM SS HbA1c (Bld) [Mass fraction] 5.8 % Normal 4.3 - 6.4 % AO ADM SS Hematocrit (Bld) [Volume fraction] 45.4 % Normal 40.0 - 52.0 % AO Workflow SS Hemoglobin (Bld) [Mass/Vol] 15.5 G/dL Normal 13.0 - 17.5 G/dL AO Workflow SS Lymphocytes (Bld) [#/Vol] 1.3 103/mcL Normal 0.9 - 4.3 10^3/mcL AO Workflow SS Lymphocytes/100 WBC (Bld) 21.4 % Normal 20.0 - 40.0 % AO Workflow SS MCH (RBC) [Entitic mass] 29.7 pg Normal 27.0 - 33.0 pg AO Workflow SS MCHC 34.1 G/dL Normal 32.0 - 36.0 G/dL AO Workflow SS MCV (RBC) [Entitic vol] 87.0 fL Normal 81.0 - 100.0 fL AO Workflow SS Monocytes (Bld) [#/Vol] 0.6 103/mcL Normal 0.1 - 1.4 10^3/mcL AO Workflow SS Monocytes/100 WBC (Bld) 9.7 % Normal 2.0 - 13.0 % AO Workflow SS Neutrophils (Bld) [#/Vol] 3.9 103/mcL Normal 2.3 - 8.1 10^3/mcL AO Workflow SS Neutrophils/100 WBC (Bld) 62.4 % Normal 50.0 - 75.0 % AO Workflow SS Platelet mean volume (Bld) [Entitic vol] 7.7 fL Normal 6.4 - 10.5 fL AO Workflow SS Platelets (Bld) [#/Vol] 269 103/mcL Normal 150 - 450 10^3/mcL AO Workflow SS Potassium [Moles/Vol] 4.0 mmol/L Normal 3.5 - 5.1 mmol/L AO ADM SS Protein [Mass/Vol] 7.8 G/dL Normal 6.4 - 8.2 G/dL AO ADM SS RBC (Bld) [#/Vol] 5.22 106/mcL Normal 4.50 - 6.0 0 10^6/mcL AO Workflow SS Sodium [Moles/Vol] 141 mmol/L Normal 136 - 145 mmol/L AO ADM SS Urea nitrogen [Mass/Vol] 15 mg/dL Normal 7 - 18 mg/dL AO ADM SS Urea nitrogen/Creatinine [Mass ratio] 14 ratio Normal 7 - 27 ratio AO ADM SS Uric Acid Lvl 4.8 mg/dL Normal 3.5 - 7.2 mg/dL AO ADM SS WBC (Bld) [#/Vol] 6.2 103/mcL Normal 4.5 - 10.8 10^3/mcL AO Workflow SS LABORATORYOrdered By: Antoni Mckeon on 09-13-2025 Cholesterol [Mass/Vol] 195 mg/dL Normal 0 - 200 mg/dL AO ADM SS Comment on above: Interpretive Data: C holesterol Reference Interval: Less than 200 Desirable 200-239 Borderline high risk 240 and above High risk Cholesterol in HDL [Mass/Vol] 33 mg/dL Low 40 - 60 mg/dL AO ADM SS Cholesterol in LDL [Mass/Vol] 131 mg/dL High 0 - 130 mg/dL AO ADM SS Triglyceride [Mass/Vol] 156 mg/dL High 0 - 150 mg/dL AO ADM SS Comment on above: Interpretive Data: T riglyceride Reference Interval: Less than 150 Normal 150-199 Borderline high risk 200-499 High risk 500 or higher Very high risk LIPIDon 09-13-2025 Cholesterol [Mass/Vol] 195 mg/dL Normal 0-200 [facility] Comment on above: Result Comment: Chol esterol Reference Interval: Less than 200 Desirable 200-239 Borderline high risk 240 and above High risk Performed By: #### U BEKLYS, CMP, GFR, CRP, VIDH, LIPID, A1C, CBC, ADIFF, ANEU #### [address] [place], [place] [address] Cholesterol in HDL [Mass/Vol] 33 mg/dL Low 40-60 [facility] Comment on above: Performed By: #### U BELKYS, CMP, GFR, CRP, VIDH, LIPID, A1C, CBC, ADIFF, ANEU #### [place] [address] [place], [place] [address] Cholesterol in LDL [Mass/Vol] 131 mg/dL High 0-130 [facility] Comment on above: Performed By: #### U BELKYS, CMP, GFR, CRP, VIDH, LIPID, A1C, CBC, ADIFF, ANEU #### [place] [address] [place], [place] [address] Triglyceride [Mass/Vol] 156 mg/dL High 0-150 [facility] Comment on above: Result Comment: Trig lyceride Reference Interval: Less than 150 Normal 150-199 Borderline high risk 200-499 High risk 500 or higher Very high risk Performed By: #### U BELKYS, CMP, GFR, CRP, VIDH, LIPID, A1C, CBC, ADIFF, ANEU #### [place] [id number] [place], [place] [address] URICon 09-13-2025 Uric Acid Lvl 4.8 mg/dL Normal 3.5-7.2 [facility] Comment on above: Performed By: #### U BELKYS, CMP, GFR, CRP, VIDH, LIPID, A1C, CBC, ADIFF, ANEU #### [address] [address] VIDHon 09-13-2025 Vit. D 25-Hydroxy 60.6 ng/mL Normal [facility] Comment on above: Result Comment: Inte rpretive Values Based on Total 25(OH) Vitamin D: Deficient <20 ng/mL Insufficient 20 - <30 ng/mL Sufficient 30-100 ng/mL Performed By: #### U BELKYS, CMP, GFR, CRP, VIDH, LIPID, A1C, CBC, ADIFF, ANEU #### [address] [address] 36on 09-11-2025 36 LVM for the pt to ca ll back to schedule an appt Normal [facility] XR ANKLE MINIMUM 3 VIEWS LEF Ton 08-24-2025 XR ANKLE MINIMUM 3 VIEWS LEFT ORIGINAL EXAMINATION: XR right ankle three views, left ankle three views 08/22/2025 1:00 pm; 08/22/2025 1:01 pm COMPARISON: None HISTORY: ORDERING SYSTEM PROVIDED HISTORY: Reason for Exam: Comparison to left ankle, chronic pain; ORDERING SYSTEM PROVIDED HISTORY: Reason for Exam: Chronic left ankle pain, FINDINGS: No acute fracture, dislocation, bony lytic process or periosteal reaction is seen in the visualized bones and joints. No significant degenerative or erosive type of arthritis or soft tissue calcification. Both ankles show similar symmetric appearance. No osteochondral defect or degenerative changes on either side. No calcaneal spurs. IMPRESSION: No significant skeletal abnormality is seen in either ankle. Interpreted by: Jagdish Morgan MD Preliminary Report By: Jagdish Morgan MD Electronically signed By Jagdish Morgan MD Dictated Date: 08/24/2025 12:30:32 PM Prelim Date: 08/24/2025 12:33:36 PM Sign Date: 08/24/2025 12:33:36 PM Ordering Provider: LEONEL GUILLERMO RP [facility] XR ANKLE MINIMUM 3 VIEWS RIG HTon 08-24-2025 XR ANKLE MINIMUM 3 VIEWS RIGHT ORIGINAL EXAMINATION: XR right ankle three views, left ankle three views 08/22/2025 1:00 pm; 08/22/2025 1:01 pm COMPARISON: None HISTORY: ORDERING SYSTEM PROVIDED HISTORY: Reason for Exam: Comparison to left ankle, chronic pain; ORDERING SYSTEM PROVIDED HISTORY: Reason for Exam: Chronic left ankle pain, FINDINGS: No acute fracture, dislocation, bony lytic process or periosteal reaction is seen in the visualized bones and joints. No significant degenerative or erosive type of arthritis or soft tissue calcification. Both ankles show similar symmetric appearance. No osteochondral defect or degenerative changes on either side. No calcaneal spurs. IMPRESSION: No significant skeletal abnormality is seen in either ankle. Interpreted by: Jagdish Morgan MD Preliminary Report By: Jagdish Morgan MD Electronically signed By Jagdish Morgan MD Dictated Date: 08/24/2025 12:30:32 PM Prelim Date: 08/24/2025 12:33:36 PM Sign Date: 08/24/2025 12:33:36 PM Ordering Provider: LEONEL GUILLERMO RP [facility] CBC W Auto Differential pane l (Bld)Ordered By: Alva Enriquez on 08-23-2025 Basophils (Bld) [#/Vol] 0 10*3/uL 0.0 - 0.2 10*3/uL [facility] Basophils/100 WBC (Bld) 0.6 % 0.0 - 2.0 % [facility] Eosinophils (Bld) [#/Vol] 0.5 10*3/uL 0.0 - 0.5 10*3/uL [facility] Eosinophils/100 WBC (Bld) 8.5 % High 0.0 - 6.0 % [facility] Erythrocyte distribution width (RBC) [Ratio] 13.1 % 11.5 - 15.0 % [facility] Hematocrit (Bld) [Volume fraction] 40.8 % 40.0 - 52.0 % [facility] Hemoglobin (Bld) [Mass/Vol] 14.7 g/dL 13.0 - 18.0 g/dL [facility] Immature granulocytes (Bld) [#/Vol] 0 10*3/uL NINF - 0.1 10*3/uL [facility] Immature granulocytes/100 WBC (Bld) 0.2 % 0.0 - 2.0 % [facility] Interpretation and review of laboratory results Abnormal [facility] Lymphocytes (Bld) [#/Vol] 1.5 10*3/uL 1.0 - 4.3 10*3/uL [facility] Lymphocytes/100 WBC (Bld) 24.1 % 15.0 - 45.0 % [facility] MCH (RBC) [Entitic mass] 29.7 pg 26.0 - 34.0 pg [facility] MCHC (RBC) [Mass/Vol] 36 % 30.5 - 36.0 % [facility] MCV (RBC) [Entitic vol] 82.4 fL 77.0 - 99.0 fL [facility] Monocytes (Bld) [#/Vol] 0.5 10*3/uL 0.0 - 0.9 10*3/uL [facility] Monocytes/100 WBC (Bld) 8.3 % 5.0 - 13.0 % [facility] Neutrophils (Bld) [#/Vol] 3.6 10*3/uL 1.8 - 7.5 10*3/uL [facility] Neutrophils/100 WBC (Bld) 58.3 % 38.0 - 82.0 % [facility] Nucleated RBC/100 WBC (Bld) [Ratio] 0 % [facility] Platelet mean volume (Bld) [Entitic vol] 9.2 fL 9.0 - 12.7 fL [facility] Comment on above: MPV is a calculated measurement using platelet volume ratio Platelets (Bld) [#/Vol] 226 10*3/uL 140 - 440 10*3/uL [facility] RBC (Bld) [#/Vol] 4.95 10*6/uL 4.40 - 5.9 0 10*6/uL [facility] WBC (Bld) [#/Vol] 6.2 10*3/uL 3.6 - 10.7 10*3/uL [facility] CBC WITH AUTO DIFFERENTIALon 08-23-2025 Basophils (Bld) [#/Vol] 0.0 10*3/uL Normal 0.0-0.2 [facility] Comment on above: Performed By: #### L AB17, LAB99 #### Epidemiology Intern: DEJA HAAS ([id number]) [facility] [address] [place] [address] [place] Basophils/100 WBC (Bld) 0.6 % Normal 0.0-2.0 [facility] Comment on above: Performed By: #### L AB17, LAB99 #### Epidemiology Intern: DEJA HAAS ([id number]) [facility]) [address] [place] [address] [place] Eosinophils (Bld) [#/Vol] 0.5 10*3/uL Normal 0.0-0.5 [facility] Comment on above: Performed By: #### L AB17, LAB99 #### Epidemiology Intern: DEJA HAAS ([id number]) [facility] ([facility]) [address] [place] [address] [place] Eosinophils/100 WBC (Bld) 8.5 % High 0.0-6.0 [facility] Comment on above: Performed By: #### L AB17, LAB99 #### Epidemiology Intern: DEJA HAAS ([id number]) [facility] ([facility]) [address] [place] [address] [place] Erythrocyte distribution width (RBC) [Ratio] 13.1 % Normal 11.5-15.0 [facility] Comment on above: Performed By: #### Jak DENT17, LAB99 #### Epidemiology Intern: DEJA HAAS ([id number]) [facility] [employer] ([employer]) [address] [place] [address] Hematocrit (Bld) [Volume fraction] 40.8 % Normal 40.0-52.0 [facility] Comment on above: Performed By: #### Jak DENT17, LAB99 #### Epidemiology Intern: DEJA HAAS ([id number]) [facility] ([facility]) [address] [place] [address] Hemoglobin (Bld) [Mass/Vol] 14.7 g/dL Normal 13.0-18.0 [facility] Comment on above: Performed By: #### Jak BYRD, LAB99 #### Epidemiology Intern: DEJA HAAS ([id number]) [facility] [employer] ([facility]) [address] [place] [address] IMMATURE GRANS % 0.2 % Normal 0.0-2.0 [facility] Comment on above: Performed By: #### Jak DENT17, LAB99 #### Epidemiology Intern: DEJA HAAS ([id number]) [facility] [employer] ([facility]) [address] [place] [address] IMMATURE GRANS ABSOLUTE 0.0 10*3/uL Normal <0.1 [facility] Comment on above: Performed By: #### L AB17, LAB99 #### Epidemiology Intern: DEJA HAAS ([id number]) [facility] [employer] ([employer]) [address] [place] [address] [place] Lymphocytes (Bld) [#/Vol] 1.5 10*3/uL Normal 1.0-4.3 [facility] Comment on above: Performed By: #### Jak DENT17, LAB99 #### Epidemiology Intern: DEJA HAAS ([id number]) [facility] [employer] ([employer]) [address] [place] [address] [place] Lymphocytes/100 WBC (Bld) 24.1 % Normal 15.0-45.0 [facility] Comment on above: Performed By: #### L AB17, LAB99 #### Epidemiology Intern: DEJA HAAS ([id number]) [facility] [employer] ([facility]) [address] [place] [address] MCH (RBC) [Entitic mass] 29.7 pg Normal 26.0-34.0 [facility] Comment on above: Performed By: #### L AB17, LAB99 #### Epidemiology Intern: DEJA HAAS ([id number]) [facility] [employer] ([facility]) [address] [place] [address] MCHC 36.0 % Normal 30.5-36.0 [facility] Comment on above: Performed By: #### L AB17, LAB99 #### Epidemiology Intern: DEJA HAAS ([id number]) [facility] [employer] ([facility]) [address] [place] [address] MCV (RBC) [Entitic vol] 82.4 fL Normal 77.0-99.0 [facility] Comment on above: Performed By: #### L AB17, LAB99 #### Epidemiology Intern: DEJA HAAS ([id number]) [facility] [employer] [employer] ([facility]) [address] [place] [address] [place] Monocytes (Bld) [#/Vol] 0.5 10*3/uL Normal 0.0-0.9 [facility] Comment on above: Performed By: #### L AB17, LAB99 #### Epidemiology Intern: DEJA HAAS ([id number]) [facility] [employer] ([facility]) [address] [place] [address] [place] Monocytes/100 WBC (Bld) 8.3 % Normal 5.0-13.0 [facility] Comment on above: Performed By: #### L AB17, LAB99 #### Epidemiology Intern: DEJA HAAS ([id number]) [facility] [employer] ([facility]) [address] [place] [address] NEUTROPHILS ABSOLUTE 3.6 10*3/uL Normal 1.8-7.5 [facility] Comment on above: Performed By: #### L AB17, LAB99 #### Epidemiology Intern: DEJA HAAS ([id number]) [facility] [employer] ([facility]) [address] [place] [address] Neutrophils/100 WBC (Bld) 58.3 % Normal 38.0-82.0 [facility] Comment on above: Performed By: #### Jak [id number], LAB99 #### Epidemiology Intern: DEJA HAAS ([id number]) [facility] [employer] ([employer]) [address] [place] [address] NRBC 0.0 /100 WBCs Normal 0.0-2.0 [facility] Comment on above: Performed By: #### Jak AB17, LAB99 #### Epidemiology Intern: DEJA HAAS ([id number]) [facility] [employer] ([employer]) [address] [place] [address] Platelet mean volume (Bld) [Entitic vol] 9.2 fL Normal 9.0-12.7 [facility] Comment on above: Result Comment: MPV is a calculated measurement using platelet volume ratio Performed By: #### L AB17, LAB99 #### Epidemiology Intern: DEJA HAAS ([id number]) [facility] [employer] ([facility]) [address] [place] [address] [place] Platelets (Bld) [#/Vol] 226 10*3/uL Normal 140-440 [facility] Comment on above: Performed By: #### L [id number], [id number] #### Epidemiology Intern: DEJA HAAS ([id number]) [facility] [place] ([employer]) [address] [place] [address] [place] RBC (Bld) [#/Vol] 4.95 10*6/uL Normal 4.40-5.90 [facility] Comment on above: Performed By: #### Jak [id number], [id number] #### Epidemiology Intern: DEJA HAAS ([id number]) [facility] [place] ([place]) [address] [place] [address] WBC (Bld) [#/Vol] 6.2 10*3/uL Normal 3.6-10.7 [facility] Comment on above: Performed By: #### L [id number], [id number] #### Epidemiology Intern: DEJA HAAS ([id number]) [facility] [place] ([place]) [address] [place] [address] COMPLETE URINALYSIS WITH REF NGUYEN TO CULTUREon 08-23-2025 BILIRUBIN, TOTAL PRESENCE IN URINE Negative Normal Negative [facility] Comment on above: Performed By: #### Jak [id number] #### Epidemiology Intern: DEJA HAAS ([id number]) [facility] [place] ([place]) [address] [place] [address] Clarity (U) Clear Normal Clear [facility] Comment on above: Performed By: #### L [id number] #### Epidemiology Intern: DEJA HAAS ([id number]) [facility] [place] ([place]) [address] [place] [address] Color (U) Light Yellow Normal Lt. Yellow [facility] Comment on above: Performed By: #### L [id number] #### Epidemiology Intern: DEJA HAAS ([id number]) [facility] [place] ([place]) [address] [place] [address] GLUCOSE (MG/DL) IN URINE >1,000 Abnormal Normal (<70) [facility] Comment on above: Performed By: #### L [id number] #### Epidemiology Intern: EDJA HAAS ([id number]) [facility] [place] ([place]) [address] [place], [place] [id number] [place] HEMOGLOBIN PRESENCE IN URINE Negative Normal Negative [facility] Comment on above: Performed By: #### L [id number] #### Epidemiology Intern: DEJA HAAS ([id number]) [facility] [place] ([place]) [address] [place] [address] Ketones Ql (U) Negative Normal Negative [facility] Comment on above: Performed By: #### L [id number] #### Epidemiology Intern: DEJA HAAS ([id number]) [facility] [place] ([place]) [address] [place] [address] LEUKOCYTE ESTERASE PRESENCE IN URINE BY TEST STRIP Negative Normal Negative [facility] Comment on above: Performed By: #### L [id number] #### Epidemiology Intern: DEJA HAAS ([id number]) [facility] [place] ([place]) [address] [place] [address] NITRITE PRESENCE IN URINE Negative Normal Negative [facility] Comment on above: Performed By: #### L [id number] #### Epidemiology Intern: DEJA HAAS ([id number]) [facility] [place] ([place]) [address] [place] [address] pH (U) 6.0 [pH] Normal 5.0-8.0 [facility] Comment on above: Performed By: #### L [id number] #### Epidemiology Intern: DEJA HAAS ([id number]) [facility] [place] ([place]) [address] [place] [address] Protein (U) [Mass/Vol] Negative Normal Negative [facility] Comment on above: Performed By: #### L [id number] #### Epidemiology Intern: DEJA HAAS ([id number]) [facility] [place] ([place]) [address] [place] [address] Specific gravity (U) [Rel density] 1.042 High 1.005-1.030 [facility] Comment on above: Result Comment: ORDE R COMMENTS: A specimen with <=10 WBC is not consistent with inflammation. This specimen will not reflex to a urine culture. Performed By: #### L [id number] #### Epidemiology Intern: DEJA HAAS ([id number]) [facility] [place] ([place]) [address] [place] [address] UROBILINOGEN (MG/DL) IN URINE Normal Normal Normal (0-1) [facility] Comment on above: Performed By: #### L [id number] #### Epidemiology Intern: DEJA HAAS ([id number]) [facility] [place] ([place]) [address] [place] [address] COMPREHENSIVE METABOLIC PANE Marcelo 08-23-2025 Albumin [Mass/Vol] 3.9 g/dL Normal 3.5-5.0 [facility] Comment on above: Performed By: #### L [id number], [id number] #### Epidemiology Intern: DEJA HAAS ([id number]) [facility] [place] ([place]) [address] [place] [address] ALP [Catalytic activity/Vol] 92 U/L Normal 40-150 [facility] Comment on above: Performed By: #### L [id number], [id number] #### Epidemiology Intern: DEJA HAAS ([id number]) [facility] [place] ([place]) [address] [place] [address] ALT [Catalytic activity/Vol] 34 U/L Normal <40 [facility] Comment on above: Performed By: #### L [id number], [id number] #### Epidemiology Intern: DEJA HAAS ([id number]) [facility] [place] ([place]) [address] [place] [address] Anion gap [Moles/Vol] 10 mmol/L Normal 3-13 [facility] Comment on above: Performed By: #### L [id number], LAB99 #### Epidemiology Intern: DEJA HAAS ([id number]) [facility] [place] ([place]) [address] [place] [address] [place] AST [Catalytic activity/Vol] 24 U/L Normal <34 [facility] Comment on above: Performed By: #### L [id number], [id number] #### Epidemiology Intern: DEJA HAAS ([id number]) [facility] [place] ([place]) [address] [place] [address] [place] Bilirubin [Mass/Vol] 0.5 mg/dL Normal <1.2 [facility] Comment on above: Performed By: #### L [id number], [id number] #### Epidemiology Intern: DEJA HAAS ([id number]) [facility] [place] ([place]) [address] [place] [address] [place] Calcium [Mass/Vol] 9.3 mg/dL Normal 8.4-10.2 [facility] Comment on above: Performed By: #### L [id number], [id number] #### Epidemiology Intern: DEJA HAAS ([id number]) [facility] [place] ([place]) [address] [place] [address] [place] Chloride [Moles/Vol] 107 mmol/L Normal 98-107 [facility] Comment on above: Performed By: #### L [id number], [id number] #### Epidemiology Intern: DEJA HAAS ([id number]) [facility] [place] ([place]) [address] [place] [address] [place] CO2 [Moles/Vol] 23 mmol/L Normal 22-29 [facility] Comment on above: Performed By: #### L [id number], [id number] #### Epidemiology Intern: DEJA HAAS ([id number]) [facility] [place] ([place]) [address] [place] [address] [place] Creatinine [Mass/Vol] 0.88 mg/dL Normal 0.72-1.25 [facility] Comment on above: Performed By: #### L [id number], [id number] #### Epidemiology Intern: DEJA HAAS ([id number]) [facility] [place] ([place]) [address] [place] [address] GLOMERULAR FILTRATION RATE ML/MIN/1.73 SQ M.PREDICTED >90.0 Normal >60.0 [facility] Comment on above: Result Comment: Calc ulation based on the Chronic Kidney Disease Epidemiology Collaboration (CKD-EPI) equation refit without adjustment for race Performed By: #### L [id number], [id number] #### Epidemiology Intern: DEJA HAAS ([id number]) [facility] [place] ([place]) [address] [place] [address] Glucose [Mass/Vol] 141 mg/dL High 74-100 [facility] Comment on above: Performed By: #### L [id number], LAB99 #### Epidemiology Intern: DEJA HAAS ([id number]) [facility] [place] ([place]) [address] [place] [address] Potassium [Moles/Vol] 3.6 mmol/L Normal 3.5-5.1 [facility] Comment on above: Result Comment: [facility] potassium values may be up to 0.5 mmol/L lower than serum values. Performed By: #### Jak AB17, LAB99 #### Epidemiology Intern: DEJA HAAS ([id number]) [facility] [place] ([place]) [address] [place] [address] Protein [Mass/Vol] 7.1 g/dL Normal 6.4-8.3 [facility] Comment on above: Performed By: #### L [id number], [id number] #### Epidemiology Intern: DEJA HAAS ([id number]) [facility] [place] ([place]) [address] [place] [address] [place] Sodium [Moles/Vol] 140 mmol/L Normal 136-145 [facility] Comment on above: Performed By: #### L [id number], [id number] #### Epidemiology Intern: DEJA HAAS ([id number]) [facility] [place] ([place]) [address] [place] [address] [place] Urea nitrogen [Mass/Vol] 10 mg/dL Normal 8-21 [facility] Comment on above: Performed By: #### L [id number], LAB99 #### Epidemiology Intern: DEJA HAAS ([id number]) [facility] [address] [place] [address] CT ABDOMEN PELVIS WO IV CONT RASTon 08-23-2025 CT ABDOMEN PELVIS WO IV CONTRAST Patient Name: LEONEL LAKE : 1985 [id number] Exam Date/Time: 08/23/2025 21:28 Procedure: CT ABDOMEN PELVIS WO IV CONTRAST Ordering Provider: ENRIQUEZ GREGORY Reason For Exam: Flank pain, kidney stone suspected; Right flank pain history of kidney stones CT ABDOMEN AND PELVIS WITHOUT CONTRAST CLINICAL INDICATION: Flank pain, kidney stone suspected; Right flank pain history of kidney stones TECHNIQUE: CT scan of the abdomen and pelvis without IV/oral contrast. Multiplanar reformations. Dose reduction was employed with automated exposure control. COMPARISON: None FINDINGS: Solid organ evaluation limited from lack of IV contrast. Lung bases are clear. No free intraperitoneal gas seen. Liver shows no significant abnormality. Normal-appearing biliary tree status-post cholecystectomy. Spleen shows no significant abnormality. Adrenal glands show no significant abnormality. Kidneys show no significant abnormality. Pancreas shows no significant abnormality. Abdominal aorta is nonaneurysmal. The appendix appears normal. Fluid and stool throughout the colon, fluid throughout numerous small bowel loops may relate to enteritis. No ureteral calculus seen on either side. IMPRESSION: 1. Possible enteritis.. Report Dictated on Electronically Signed By: Perez Mclaughlin MD Electronically Signed Date/Time: 08/23/2025 9:45 PM EDT complaint of upper abd pain x 1 day with nausea, lower back pain, hx jonathan Normal [facility] CT Abdomen and Pelvis WO con traston 08-23-2025 1. Possible enteritis.. Report Dictated on Electronically Signed By: Perez Mclaughlin MD Electronically Signed Date/Time: 08/23/2025 9:45 PM EDT [facility] Patient Name: LEONEL LAKE : 1985 Exam Date/Time: 08/23/2025 21:28 Procedure: CT ABDOMEN PELVIS WO IV CONTRAST Ordering Provider: ENRIQUEZ GREGORY Reason For Exam: Flank pain, kidney stone suspected; Right flank pain history of kidney stones CT ABDOMEN AND PELVIS WITHOUT CONTRAST CLINICAL INDICATION: Flank pain, kidney stone suspected; Right flank pain history of kidney stones TECHNIQUE: CT scan of the abdomen and pelvis without IV/oral contrast. Multiplanar reformations. Dose reduction was employed with automated exposure control. COMPARISON: None FINDINGS: Solid organ evaluation limited from lack of IV contrast. Lung bases are clear. No free intraperitoneal gas seen. Liver shows no significant abnormality. Normal-appearing biliary tree status-post cholecystectomy. Spleen shows no significant abnormality. Adrenal glands show no significant abnormality. Kidneys show no significant abnormality. Pancreas shows no significant abnormality. Abdominal aorta is nonaneurysmal. The appendix appears normal. Fluid and stool throughout the colon, fluid throughout numerous small bowel loops may relate to enteritis. No ureteral calculus seen on either side. [facility] Perez Mclaughlin MD - 08/23/2025 Patient Name: LEONEL LAKE : 1985 Exam Date/Time: 08/23/2025 21:28 Procedure: CT ABDOMEN PELVIS WO IV CONTRAST Ordering Provider: ENRIQUEZ GREGORY Reason For Exam: Flank pain, kidney stone suspected; Right flank pain history of kidney stones CT ABDOMEN AND PELVIS WITHOUT CONTRAST CLINICAL INDICATION: Flank pain, kidney stone suspected; Right flank pain history of kidney stones TECHNIQUE: CT scan of the abdomen and pelvis without IV/oral contrast. Multiplanar reformations. Dose reduction was employed with automated exposure control. COMPARISON: None FINDINGS: Solid organ evaluation limited from lack of IV contrast. Lung bases are clear. No free intraperitoneal gas seen. Liver shows no significant abnormality. Normal-appearing biliary tree status-post cholecystectomy. Spleen shows no significant abnormality. Adrenal glands show no significant abnormality. Kidneys show no significant abnormality. Pancreas shows no significant abnormality. Abdominal aorta is nonaneurysmal. The appendix appears normal. Fluid and stool throughout the colon, fluid throughout numerous small bowel loops may relate to enteritis. No ureteral calculus seen on either side. IMPRESSION: 1. Possible enteritis.. Report Dictated on Electronically Signed By: Perez Mclaughlin MD Electronically Signed Date/Time: 08/23/2025 9:45 PM EDT [facility] Radiology Study observation (narrative) [facility] CT Abdomen and Pelvis WO con trastOrdered By: Perez Mclaughlin on 08-23-2025 [facility] [employer] Work Phone: Comprehensive metabolic 1998 panelon 08-23-2025 Albumin [Mass/Vol] 3.9 g/dL 3.5 - 5.0 g/dL [facility] ALP [Catalytic activity/Vol] 92 U/L 40 - 150 U/L [facility] ALT [Catalytic activity/Vol] 34 [facility] Anion gap [Moles/Vol] 10 mmol/L 3 - 13 mmol/L [facility] AST [Catalytic activity/Vol] 24 U/L [facility] U/L [facility] Bilirubin [Mass/Vol] 0.5 mg/dL NINF - 1.2 mg/dL [facility] Calcium [Mass/Vol] 9.3 mg/dL 8.4 - 10. 2 mg/dL [facility] Chloride [Moles/Vol] 107 mmol/L 98 - 10 7 mmol/L [facility] CO2 [Moles/Vol] 23 mmol/L 22 - 29 mmol/L [facility] Creatinine [Mass/Vol] 0.88 mg/dL 0.72 - 1.25 mg/dL [facility] GFR/1.73 sq M.predicted (S/P/Bld) [Vol rate/Area] - PINF [facility] Comment on above: Calculation based on the Chronic Kidney Disease Epidemiology Collaboration (CKD-EPI) equation refit without adjustment for race Glucose [Mass/Vol] 141 mg/dL High 74 - 100 mg/dL [facility] Interpretation and review of laboratory results Abnormal [facility] Potassium [Moles/Vol] 3.6 mmol/L 3.5 - 5.1 mmol/L [facility] Comment on above: Plasma potassium rose ues may be up to 0.5 mmol/L lower than serum values. Protein [Mass/Vol] 7.1 g/dL 6.4 - 8.3 g/dL [facility] Sodium [Moles/Vol] 140 mmol/L 136 - 145 mmol/L [facility] Urea nitrogen [Mass/Vol] 10 mg/dL 8 - 21 mg/dL [facility] ED Nursing Noteon 08-23-2025 ED Nursing Note Pt unable to urinate at this time. Given urinal and aware doctor ordered urine specimen. Normal [facility] ED Nursing Note Pt to ER with compla int of upper abd pain x 1 day with nausea, no vomiting. Today has lower back pain as well. Rates pain sharp and constant 10/10. States he has had his gallbladder removed and this feels similar to that pain. Denies chest pain, shortness of breath, cough, fever, chills. Pt ambulatory on arrival with steady gait. Alerty and oriented x 4. Skin warm and dry. Respirations even and unlabored. Call light in reach Normal [facility] ED Provider Noteon ED Provider Note [facility] ED EMERGENCY DEPARTMENT ENCOUNTER Pt Name: Leonel Lake Birthdate 1985 Date of evaluation: 08/23/2025 Provider: Terrell Enriquez MD CHIEF COMPLAINT Chief Complaint Patient presents with Abdominal Pain Nausea Back Pain HISTORY OF PRESENT ILLNESS (Location/Symptom, Timing/Onset,Context/Se tting, Quality, Duration, Modifying Factors, Severity) Note limiting factors. Leonel Lake is a 39 y.o. male who presents to the emergency department with abdominal pain. Patient reports it feels similar to when he had his gallbladder removed. No chest pain no short of breath no fevers chills no urinary symptoms. No lightheadedness or dizziness. Which is kind of epigastric but crampy throughout the whole abdomen. HPI Historian is the patient Nurse's notes for past medical history, surgical history, social history were reviewed. Medications and allergies reviewed. PAST MEDICAL HISTORY Medical History[1] SURGICALHISTORY Surgical History[2] CURRENT MEDICATIONS Previous Medications ATORVASTATIN (LIPITOR) 20 [...] CONTINUOUS GLUCOSE SENSOR (FREESTYLE GOGO 2 SENSOR) [facility] apply 1 SENSOR TO BACK OF ARM ONCE EVERY 14 DAYS TO MONITOR GLUCOSE DAPAGLIFLOZIN (FARXIGA) 5 MG TABLET Take by mouth. DULAGLUTIDE (TRULICITY SC) Inject under the skin. ESCITALOPRAM (LEXAPRO) 10 MG TABLET 10 mg. ETANERCEPT (ENBREL) 50 MG/ML INJECTION Inject 50 mg under the skin. FARXIGA 10 MG TABLET Take 10 mg by mouth daily. FENOFIBRATE (TRICOR) 145 MG TABLET Take 145 mg by mouth daily. FLUTICASONE (FLONASE ALLERGY RELIEF) 50 MCG/ACT NASAL SPRAY Dose = 1 spray(s), Nostril, each, qDay, # 16 gram(s), 11 Refill(s), Pharmacy: [id number], Acute sinusitis, 177.8, cm, 04/05/24 14:15:00 EDT, Height, kg, 04/05/24 14:16:00 EDT, Dosing Weight GABAPENTIN (NEURONTIN) 400 MG CAPSULE 400 mg. GLIMEPIRIDE (AMARYL) 2 MG TABLET See Instructions, Take 2 tablets (4mg) by mouth with breakfast and 1 tablet (2mg) with dinner, # 90 tab(s), 3 Refill(s), Pharmacy: [facility] [place], 179.6, cm, 04/13/24 10:38:00 EDT, Height, kg, [...] TIZANIDINE (ZANAFLEX) 4 MG TABLET 4 mg. Penicillins, Prednisone, and Seroquel [quetiapine] FAMILY HISTORY Family History[3] SOCIAL HISTORY Social History[4] SCREENINGS PHYSICAL EXAM (up to 7 for level 4, 8 or more for level 5) @EDTRIAGEVSS@ Appropriate PPE including n 95, gown, gloves, goggles where worn when appropriate with this patient. Physical Exam General awake alert appropriate nontoxic. Heart is regular. Lungs are clear. Abdomen vague discomfort but no rebound or guarding. No peritoneal findings. Extremities no edema. DIAGNOSTIC RESULTS RADIOLOGY: Interpretation per the Radiologist below, if availableat the time of this note: CT abdomen pelvis wo IV contrast Final Result 1. Possible enteritis.. Report Dictated on Electronically Signed By: Perez Mclaughlin MD Electronically Signed Date/Time: 08/23/2025 9:45 PM EDT ED BEDSIDE ULTRASOUND: Performed by ED Physician - none LABS: Labs Reviewed COMPREHENSIVE METABOLIC PANEL - Abnormal Result Value SODIUM 140 POTASSIUM 3.6 CHLORIDE 107 CARBON DIOXIDE 23 ANION GAP 10 UREA NITROGEN 10 CREATININE 0.88 GLUCOSE 141 (*) CALCIUM 9.3 AST (SGOT) 24 ALT 34 ALKALINE PHOSPHATASE 92 ALBUMIN 3.9 BILIRUBIN, TOTAL 0.5 TOTAL PROTEIN 7.1 eGFR >90.0 CBC WITH AUTO DIFFERENTIAL - Abnormal Auto WBC 6.2 RBC 4.95 Hemoglobin 14.7 Hematocrit 40.8 MCV 82.4 MCH 29.7 MCHC 36.0 RDW 13.1 Platelets 226 MPV 9.2 nRBC 0.0 Neutrophils Relative 58.3 Lymphocytes Relative 24.1 Monocytes Relative 8.3 Eosinophils Relative 8.5 (*) Basophils Relative 0.6 Immature Grans % 0.2 Neutrophils Absolute 3.6 Lymphocytes Absolute 1.5 Monocytes Absolute 0.5 Eosinophils Absolute 0.5 Basophils Absolute 0.0 Immature Grans Absolute 0.0 COMPLETE URINALYSIS WITH REFLEX TO CULTURE - Abnormal Color, Urine Light Yellow Clarity, Urine Clear pH, Urine 6.0 Leukocytes, Urine Negative (more content not included)... Normal [facility] LIPASEon 08-23-2025 Lipase [Catalytic activity/Vol] 42 U/L Normal <55 [facility] Comment on above: Performed By: #### L AB17, LAB99 #### Epidemiology Intern: DEJA HAAS ([id number]) [facility] [place] ([facility]) [address] Laboratory - Chemistry and C hemistry - challengeon 08-23-2025 Lipase [Catalytic activity/Vol] 42 U/L NINF - 55 U/L [facility] Lipase [Catalytic activity/V ol]on 08-23-2025 Interpretation and review of laboratory results Normal [facility] No Panel Informationon 08-23 [facility] Urinalysis complete panel (U )on 08-23-2025 Bilirubin Ql (U) Negative Negative mg/dL [facility] Clarity (U) Clear Clear [facility] Color (U) Light Yellow Lt. Yellow [facility] Glucose Ql (U) >1,000 Abnormal Normal (<70) mg/dL [facility] Hemoglobin Ql (U) Negative Negative mg/dL [facility] Interpretation and review of laboratory results Abnormal [facility] Ketones (U) [Mass/Vol] Negative Negative mg/dL [facility] Leukocyte esterase Test strip Ql (U) Negative Negative Amish/uL [facility] Nitrite Ql (U) Negative Negative [facility] th pH (U) 6.0 [pH] 5.0 - 8.0 pH [facility] Protein (U) [Mass/Vol] Negative Negative mg/dL [facility] Specific gravity (U) [Rel density] 1.042 High 1.005 - 1.030 [facility] Urobilinogen (U) [Mass/Vol] Normal Normal (0-1) mg/dL [facility] A specimen with <=10 WBC is not consistent with inflammation. This specimen will not reflex to a urine culture. [facility] Cerv Spine Obl/Flex/Ext Comp on 08-20-2025 Cerv Spine Obl/Flex/Ext Comp [facility] Services [address] [place], [place] [id number] Cerv Spine Obl/Flex/Ext Comp MR#: [id number] Acct: [id number] Name: LEONEL LAKE Curry Rep #: [id number] : 1985 M 39 From: Rakesh Tabares MD PCP: Wanda Mata NP-Emil Status: REG CLI Study: Cerv Spine Obl/Flex/Ext Comp Date of Exam: Exam# [id number] Ordering Dr: Marc Aquino MD PROCEDURE: CERV SPINE OBL/FLEX/EXT COMP 08/20/2025 REASON FOR EXAM: OTHER CERVICAL DISC DEGENERATION, UNSPECIFIED CERVICAL REGION TECHNIQUE: Procedure Code: RADSPCFE Modality: DX Procedure: CERV SPINE OBL/FLEX/EXT COMP cervical spine 8 views. COMPARISON: None FINDINGS: There is loss of the lordosis. Vertebral body height and alignment are maintained. There is no instability demonstrated on flexion or extension. There is loss of disc height at C5-6. The facets are aligned. Soft tissues are unremarkable. RAD/Cerv Spine Obl/Flex/Ext Comp IMPRESSION: There is loss of the lordosis. There is loss of disc height at C5-6. There is no instability demonstrated. Reading Location: [facility] CC: DRAG CAR RACER-C Wanda Mata; Dr. Marc Aquino MD International Organizer: Signed Normal [facility] LABORATORYOrdered By: Charley yun on 08-08-2025 Glucose [Mass/Vol] 92 mg/dL Normal 70 - 110 mg/dL [facility] Work Phone: Bedside Glucoseon 08-06-2025 FINGERSTICK GLU 119 mg/dL High 74-106 [facility] Comment on above: Result Comment: TANA FOLEYENT OF PATIENT CARE PER NURSING PROTOCOL Performed By: #### L 501.080 #### [facility] [address] [facility] [place], [address] Cerv Spine 2 or 3 Viewson Cerv Spine 2 or 3 Views [facility] Imaging Services [address] [place], [place] [address] Cerv Spine 2 or 3 Views MR#: [id number] Acct: [id number] Name: LEONEL LAKE Rep #: [id number] : 1985 M 39 From: Jitendra Chaudhry MD PCP: Wanda Mata, DRAG CAR RACER-C Status: [facility] Study: Cerv Spine 2 or 3 Views Date of Exam: 08/06/25 Exam# [id number] Ordering Dr: Marc Aquino MD PROCEDURE: CERV SPINE 2 OR 3 VIEWS 08/06/2025 REASON FOR EXAM: CERVICAL EPIDURAL TECHNIQUE: Procedure Code: RADSPCL Modality: DX Procedure: CERV SPINE 2 OR 3 VIEWS COMPARISON: 02/05/2025. FINDINGS: Intraoperative fluoroscopy for a cervical epidural was performed. 6.5 seconds of fluoroscopic time. 2.80 mGy. See procedure report for full details. RAD/Cerv Spine 2 or 3 Views IMPRESSION: As above. Reading Location: [id number] CC: DRAG CAR RACER-C Wanda Mata; Dr. Marc Aquino MD International Organizer: Signed Normal [facility] Glucose [facility] at [facility] deOrdered By: Marc Aquino on 08-06-2025 Glucose [Mass/Vol] 119 mg/dL High 74-106 [facility] Comment on above: MANAGEMENT OF PATIEN T CARE PER NURSING PROTOCOL Operative Reporton Operative Report [facility] Medical Records Department [address] [place] [address] Operative Report 08/06/25 0931 MR#: [id number] Acct: [id number] Name: LEONEL LAKE Rep #: [id number] : 1985 39 From: Marc Aquino MD PCP: PATRICIA Briscoe Status:REG [facility] Location: [place] [address] Operative Report (Standard) Operative Information Date of Procedure: 08/06/25 Pre-Operative Diagnosis: Cervical radiculopathy, cervical degenerative disc disease, cervical spinal stenosis Post-Operative Diagnosis: Cervical radiculopathy, cervical degenerative disc disease, cervical spinal stenosis Surgery/Procedure Performed: Cervical epidural steroid injection, interlaminar at C7-T1 under fluoroscopy guidance. able bodied tankerman: No Type of Anesthesia: Local RN Documented Start/Stop Times: Operation Date: 08/06/25 09:40 Case Time Into Pre-Op 08/06/25 07:58 Out of Pre-Op 08/06/25 09:05 Anesthesia Start 08/06/25 09:17 Into Room 08/06/25 09:17 Procedure Start 08/06/25 09:23 Procedure End 08/06/25 09:28 Anesthesia End 08/06/25 09:29 Out of Room 08/06/25 09:29 Procedure Start Time: Procedure Stop Time: Select all DRAINS/GRAFTS/IMPLANTS that apply: None Estimated Blood Loss: 0 Specimen collected: No Description of surgery: PREOPERATIVE DIAGNOSES: Cervical radiculopathy, cervical degenerative disc [...] and agreed to proceed. Informed consent was obtai jocelynn. IV inserted per routine protocol. The patient [...] well. ASSESSMENT AND PLAN: This is a 39-year-old male with cervical radiculopathy, cervical degenerative disc disease, cervical spinal stenosis status post cervical epidural steroid injection interlaminar at C7-T1 under fluoroscopic guidance, patient will continue his current medications, patient will follow in approximately 2 weeks for reevaluation. Surgical Findings: 0 Complications Complications: No Admit VTE Documentation VTE Present on Admission: No VTE Mechan Device Prophylaxis: None VTE Pharm Prophylaxis ordered?: No 08/06/25 0933 Cosigner Signature (if applicable): CC: PATRICIA Mata; Dr. Marc Aquino MD Signed Normal [facility] .Auto Diffon 08-02-2025 Basophil, Absolute 0.0 10 3/mcL Normal 0.0-0.3 [facility] Comment on above: Performed By: #### U BELKYS, CMP, GFR, CRP, VIDH, LIPID, A1C, CBC, ADIFF, ANEU #### [address] [address] Basophils/100 WBC (Bld) 0.8 % Normal 0.0-2.5 [facility] Comment on above: Performed By: #### U BELKYS, CMP, GFR, CRP, VIDH, LIPID, A1C, CBC, ADIFF, ANEU #### [address] [address] Eosinophil, Absolute 0.7 10 3/mcL Normal 0.0-0.7 [facility] Comment on above: Performed By: #### U BELKYS, CMP, GFR, CRP, VIDH, LIPID, A1C, CBC, ADIFF, ANEU #### [address] [address] Eosinophils/100 WBC (Bld) 13.1 % High 0.0-6.0 [facility] Comment on above: Performed By: #### U BELKYS, CMP, GFR, CRP, VIDH, LIPID, A1C, CBC, ADIFF, ANEU #### [address] [address] Lymphocyte, Absolute 1.3 10 3/mcL Normal 0.9-4.3 [facility] Comment on above: Performed By: #### U BELKYS, CMP, GFR, CRP, VIDH, LIPID, A1C, CBC, ADIFF, ANEU #### [address] [address] Lymphocytes/100 WBC (Bld) 23.2 % Normal 20.0-40.0 [facility] Comment on above: Performed By: #### U BELKYS, CMP, GFR, CRP, VIDH, LIPID, A1C, CBC, ADIFF, ANEU #### [address] [address] Monocyte, Absolute 0.4 10 3/mcL Normal 0.1-1.4 [facility] Comment on above: Performed By: #### U BELKYS, CMP, GFR, CRP, VIDH, LIPID, A1C, CBC, ADIFF, ANEU #### [address] [address] Monocytes/100 WBC (Bld) 7.6 % Normal 2.0-13.0 [facility] Comment on above: Performed By: #### U BELKYS, CMP, GFR, CRP, VIDH, LIPID, A1C, CBC, ADIFF, ANEU #### [address] [address] Neutrophils/100 WBC (Bld) 55.3 % Normal 50.0-75.0 [facility] Comment on above: Performed By: #### U BELKYS, CMP, GFR, CRP, VIDH, LIPID, A1C, CBC, ADIFF, ANEU #### [address] [address] .GFRon 08-02-2025 Estimated Glomerular Filtration Rate 106 ml/min/1.73sqm Normal [facility] Comment on above: Result Comment: Stages of [...] the eGFR results. Performed By: #### U BELKYS, CMP, GFR, CRP, VIDH, LIPID, A1C, CBC, ADIFF, ANEU #### [address] [address] .NEUABSon 08-02-2025 Neutrophil, Absolute 3.2 10 3/mcL Normal 2.3-8.1 [facility] Comment on above: Performed By: #### U BELKYS, CMP, GFR, CRP, VIDH, LIPID, A1C, CBC, ADIFF, ANEU #### [address] [address] AMYon 08-02-2025 Amylase [Catalytic activity/Vol] 39 U/L Normal 25-115 [facility] Comment on above: Performed By: #### U BELKYS, CMP, GFR, CRP, VIDH, LIPID, A1C, CBC, ADIFF, ANEU #### [place] [address] CBCon 08-02-2025 Erythrocyte distribution width (RBC) [Ratio] 13.6 % Normal 11.5-15.5 [facility] Comment on above: Performed By: #### U BELKYS, CMP, GFR, CRP, VIDH, LIPID, A1C, CBC, ADIFF, ANEU #### [address] [address] Hematocrit (Bld) [Volume fraction] 42.8 % Normal 40.0-52.0 [facility] Comment on above: Performed By: #### U BELKYS, CMP, GFR, CRP, VIDH, LIPID, A1C, CBC, ADIFF, ANEU #### [address] [address] Hgb 15.1 G/dL Normal 13.0-17.5 [facility] Comment on above: Performed By: #### U BELKYS, CMP, GFR, CRP, VIDH, LIPID, A1C, CBC, ADIFF, ANEU #### [address] [address] MCH (RBC) [Entitic mass] 29.9 pg Normal 27.0-33.0 [facility] Comment on above: Performed By: #### U BELKYS, CMP, GFR, CRP, VIDH, LIPID, A1C, CBC, ADIFF, ANEU #### [address] [address] MCHC 35.3 G/dL Normal 32.0-36.0 [facility] Comment on above: Performed By: #### U BELKYS, CMP, GFR, CRP, VIDH, LIPID, A1C, CBC, ADIFF, ANEU #### [address] [address] MCV (RBC) [Entitic vol] 84.8 fL Normal 81.0-100.0 [facility] Comment on above: Performed By: #### U BELKYS, CMP, GFR, CRP, VIDH, LIPID, A1C, CBC, ADIFF, ANEU #### [address] [address] Platelet 239 10 3/mcL Normal 150-450 [facility] Comment on above: Performed By: #### U BELKYS, CMP, GFR, CRP, VIDH, LIPID, A1C, CBC, ADIFF, ANEU #### [address] [address] Platelet mean volume (Bld) [Entitic vol] 7.7 fL Normal 6.4-10.5 [facility] Comment on above: Performed By: #### U BELKYS, CMP, GFR, CRP, VIDH, LIPID, A1C, CBC, ADIFF, ANEU #### [address] [address] RBC 5.04 10 6/mcL Normal 4.50-6.00 [facility] Comment on above: Performed By: #### U BELKYS, CMP, GFR, CRP, VIDH, LIPID, A1C, CBC, ADIFF, ANEU #### [address] [address] WBC 5.7 10 3/mcL Normal 4.5-10.8 [facility] Comment on above: Performed By: #### U BELKYS, CMP, GFR, CRP, VIDH, LIPID, A1C, CBC, ADIFF, ANEU #### [address] [address] CMPon 08-02-2025 Albumin Level 3.8 G/dL Normal 3.5-5.0 [facility] Comment on above: Performed By: #### U BELKYS, CMP, GFR, CRP, VIDH, LIPID, A1C, CBC, ADIFF, ANEU #### [address] [address] Albumin/Globulin [Mass ratio] 1.1 {ratio} Normal 1.1-2.5 [facility] Comment on above: Performed By: #### U BELKYS, CMP, GFR, CRP, VIDH, LIPID, A1C, CBC, ADIFF, ANEU #### [address] [address] ALP [Catalytic activity/Vol] 61 U/L Normal 40-135 [facility] Comment on above: Performed By: #### U BELKYS, CMP, GFR, CRP, VIDH, LIPID, A1C, CBC, ADIFF, ANEU #### [address] [address] ALT [Catalytic activity/Vol] 39 U/L Normal 16-63 [facility] Comment on above: Performed By: #### U BELKYS, CMP, GFR, CRP, VIDH, LIPID, A1C, CBC, ADIFF, ANEU #### [address] [address] AST [Catalytic activity/Vol] 21 U/L Normal 10-40 [facility] Comment on above: Performed By: #### U BELKYS, CMP, GFR, CRP, VIDH, LIPID, A1C, CBC, ADIFF, ANEU #### [address] [address] Bili Total 0.4 mg/dL Normal 0.2-1.0 [facility] Comment on above: Result Comment: Use of this assay is not recommended for patients undergoing treatment with eltrombopag due to the potential for falsely elevated results. Performed By: #### U BELKYS, CMP, GFR, CRP, VIDH, LIPID, A1C, CBC, ADIFF, ANEU #### [place] [address] BUN/Creatinine Ratio 14 ratio Normal 7-27 [facility] Comment on above: Performed By: #### U BELKYS, CMP, GFR, CRP, VIDH, LIPID, A1C, CBC, ADIFF, ANEU #### [address] [address] Calcium [Mass/Vol] 9.1 mg/dL Normal 8.4-10.2 [facility] Comment on above: Performed By: #### U BELKYS, CMP, GFR, CRP, VIDH, LIPID, A1C, CBC, ADIFF, ANEU #### [address] [address] Chloride [Moles/Vol] 105 mmol/L Normal 98-107 [facility] Comment on above: Performed By: #### U BELKYS, CMP, GFR, CRP, VIDH, LIPID, A1C, CBC, ADIFF, ANEU #### [place] [address] CO2 [Moles/Vol] 29 mmol/L Normal 22-29 [facility] Comment on above: Performed By: #### U BELKYS, CMP, GFR, CRP, VIDH, LIPID, A1C, CBC, ADIFF, ANEU #### [place] [address] Creatinine [Mass/Vol] 0.93 mg/dL Normal 0.67-1.17 [facility] Comment on above: Performed By: #### U BELKYS, CMP, GFR, CRP, VIDH, LIPID, A1C, CBC, ADIFF, ANEU #### [address] [address] Electrolyte Balance 8.0 mEq/L Normal 4.0-15.[address] [facility] Comment on above: Performed By: #### U BELKYS, CMP, GFR, CRP, VIDH, LIPID, A1C, CBC, ADIFF, ANEU #### [place] [address] Globulin 3.4 G/dL Normal 2.7-4.4 [facility] Comment on above: Performed By: #### U BELKYS, CMP, GFR, CRP, VIDH, LIPID, A1C, CBC, ADIFF, ANEU #### [address] [address] Glucose [Mass/Vol] 175 mg/dL High 70-105 [facility] Comment on above: Performed By: #### U BELKYS, CMP, GFR, CRP, VIDH, LIPID, A1C, CBC, ADIFF, ANEU #### [address] [address] Potassium [Moles/Vol] 4.0 mmol/L Normal 3.5-5.1 [facility] Comment on above: Performed By: #### U BELKYS, CMP, GFR, CRP, VIDH, LIPID, A1C, CBC, ADIFF, ANEU #### [address] [address] Sodium [Moles/Vol] 142 mmol/L Normal 136-145 [facility] Comment on above: Performed By: #### U BELKYS, CMP, GFR, CRP, VIDH, LIPID, A1C, CBC, ADIFF, ANEU #### [address] [address] Total Protein 7.2 G/dL Normal 6.4-8.2 [facility] Comment on above: Performed By: #### U BELKYS, CMP, GFR, CRP, VIDH, LIPID, A1C, CBC, ADIFF, ANEU #### [address] [address] Urea nitrogen [Mass/Vol] 13 mg/dL Normal 7-18 [facility] Comment on above: Performed By: #### U BELKYS, CMP, GFR, CRP, VIDH, LIPID, A1C, CBC, ADIFF, ANEU #### [address] [address] LABORATORYOrdered By: SYSTEM SYSTEM on 08-02-2025 Albumin [...] 08-02-2025 Lipase Level 49 U/L Normal 16-77 [facility] Comment on above: Performed By: #### U BELKYS, CMP, GFR, CRP, VIDH, LIPID, A1C, CBC, ADIFF, ANEU #### [place] [address] QUANTTBon 07-24-2025 QFT Criteria Comment Normal [facility] Comment on above: Result Comment: QuantiFERON-TB Gold [...] for the test. Performed By: #### U BELKYS, CMP, GFR, CRP, VIDH, LIPID, A1C, CBC, ADIFF, ANEU #### [address] [address] QFT Mitogen Value >10.00 Normal [facility] Comment on above: Performed By: #### U BELKYS, CMP, GFR, CRP, VIDH, LIPID, A1C, CBC, ADIFF, ANEU #### [address] [address] QFT Nil Value 0.03 IU/mL Normal [facility] Comment on above: Performed By: #### U BELKYS, CMP, GFR, CRP, VIDH, LIPID, A1C, CBC, ADIFF, ANEU #### [place] [address] [place], [place] [address] QFT TB1 Ag Value 0.03 IU/mL Normal [facility] Comment on above: Performed By: #### U BELKYS, CMP, GFR, CRP, VIDH, LIPID, A1C, CBC, ADIFF, ANEU #### [place] [address] [place] [address] QFT TB2 Ag Value 0.04 IU/mL Normal [facility] Comment on above: Performed By: #### U BELKYS, CMP, GFR, CRP, VIDH, LIPID, A1C, CBC, ADIFF, ANEU #### [place] [address] QFT-TB Gold Plus Clt Inc Negative Normal Negative [facility] Comment on above: Result Comment: No r [...] interferon gamma. Chemiluminescence immunoassay methodology Performed At: Lab[address] [id number] Kenia Nicholson PhD Ph:[phone] Performed By: #### U BELKYS, CMP, GFR, CRP, VIDH, LIPID, A1C, CBC, ADIFF, ANEU #### [place] [address] LABORATORYOrdered By: Charley yun on 07-11-2025 Glucose [Mass/Vol] 153 mg/dL High 70 - 110 mg/dL [facility] Work Phone: MR/Can 07-06-2025 MR/PATPARAM [facility] Medical Records Department [address] [place], [place] [id number] PAT - Anesthesia 07/06/25 1042 MR#: [id number] Acct: [id number] Name: LEONEL LAKE Rep #: [id number] : 1985 39 From: Martinez Cisneros MD PCP: Wanda Mata, DRAG CAR RACERDemetrio Status:PRE SDC Y Race: C Location: [facility] [place] Pre-Assessment Diagnosis/Proposed Procedure Planned Operative Procedure(s): CERVICAL EPIDURAL STEROIDS INJECTION UNDER FLOUROSCOPY Anesthesia History 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 Hx Hospitalization No 07/05/25 16:01 Any Problems [...] take am of surgery PONV PONV - nylon mender: PONV - nylon mender Female No 07/05/25 16:01 HX of Motion [...] 05/23/25 12:39 Respiratory Assessment Respiratory Assessment - nylon mender: Respiratory Tract Infection Hx - nylon mender Hx Respiratory Tract Infection No 07/05/25 16:01 STOP Sleep Apnea STOP Sleep Apnea - nylon mender: STOP Sleep Apnea - nylon mender Hx Hypertension No 07/05/25 16:01 Hx Sleep [...] Tobacco Use History Tobacco Use History - nylon mender: Tobacco Use History - nylon mender Tobacco Use Smoking Status Never smoker 07/05/25 16:01 Hx Tobacco Use No 07/05/25 16:01 Years Smoking Packs Smoked per Day Smoking Cessation Date was within the last 15 years Hx Smoking Cessation Date Hx Smoking Cessation Counseling Hematologic Medial History Hematologic Hx - 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 Normal [facility] LABORATORYOrdered By: Antoni Mckeon on 06-18-2025 Albumin DL <= 20 mg/L (U) [Mass/Vol] 5.1 mg/L Invalid Interpretation Code AO ADM SS Albumin/Creatinine DL <= 20 mg/L (U) [Mass ratio] 13 mg/G Normal 0 - 30 mg/G AO Chemistry S Creatinine (U) [Mass/Vol] 39.8 mg/dL Invalid Interpretation Code AO ADM SS LABORATORYOrdered By: SYSTEM SYSTEM on 06-18-2025 Prostate specific Ag [Mass/Vol] 0.59 ng/mL Normal 0.00 - 4.00 ng/mL AO ADM SS MALBRon 06-18-2025 U Creatinine 39.8 mg/dL Normal [facility] Comment on above: Performed By: #### U BELKYS, CMP, GFR, CRP, VIDH, LIPID, A1C, CBC, ADIFF, ANEU #### [address] [address] U Microalb 5.1 mg/L Normal [facility] Comment on above: Performed By: #### U BELKYS, CMP, GFR, CRP, VIDH, LIPID, A1C, CBC, ADIFF, ANEU #### [address] [address] U Ratio Alb/Cre 13 mg/G Normal 0-30 [facility] Comment on above: Performed By: #### U BELKYS, CMP, GFR, CRP, VIDH, LIPID, A1C, CBC, ADIFF, ANEU #### [address] [address] PSAon 06-18-2025 Prostate Specific Antigen 0.59 ng/mL Normal 0.00-4.00 [facility] Comment on above: Performed By: #### U BELKYS, CMP, GFR, CRP, VIDH, LIPID, A1C, CBC, ADIFF, ANEU #### [facility] [address] [place], [place] [address] LABORATORYOrdered By: Charley yun on 06-13-2025 Glucose [Mass/Vol] 99 mg/dL Normal 70 - 110 mg/dL [facility] Work Phone: HbA1c (Bld) [Mass fraction] 6.1 % [facility] Work Phone: Lab Performed By Charley Sterling PharmD [facility] Work Phone: Lab Performing Location [facility] Work Phone: CREATININE FINGERSTICKon CREATININE WB < 1.0 Normal 0.70-1.30 [facility] Comment on above: Performed By: #### L 9100.0200 #### [facility] [address] [place], [place], [address] EGFR WB > 60.0000 Normal >60 [facility] Comment on above: Performed By: #### L 9100.0200 #### [facility] [address] [place], [address] Coronary Angiography CTon Coronary Angiography CT [facility] Imaging Services [address] [place] [address] 05/23/25 1725 MR#: [id number] Acct: [id number] Name: LEONEL LAKE Rep #: [id number] : 1985 39 From: Mahesh Olivares MD PCP: PATRICIA Briscoe Status:REG CLI Y Location: CT CCTA w/Cont Coronary Arteries Date of Study:: 05/23/25 Chest pain Coronary Calcium Scoring: High-resolution Computed Tomographic imaging of the chest was performed on [-], with particular attention paid to the coronary [...] Scattered plaques noted 05/23/25 1728 Date Mahesh Olivares MD Cosigner Signature (if applicable): Date CC: PATRICIA Mata; PATRICIA Conde; Dr. Mahesh Olivares MD Signed Normal [facility] EGFROrdered By: Fabian Conde on 05-23-2025 GFR/1.73 sq M.predicted among non-blacks MDRD (S/P/Bld) [Vol rate/Area] mL/min/{1.73_m2} >60 [facility] Limited Chest CT Cardiac Onl yon 05-23-[address] Cardiac Only [facility] Imaging Services [address] [place] [address] Cardiac Only MR#: [id number] Acct: [id number] Name: LEONEL LAKE Rep #: [id number] : 1985 M 39 From: Darien Florian PCP: PATRICIA Briscoe Status: REG CLI Study: Limited Chest CT Cardiac Only Date of Exam: Exam# [id number] Ordering Dr: Fabian Conde NP PROCEDURE: LIMITED [...] demonstrates no other significant abnormality. Reading Location: [place] [address] CC: PATRICIA Mata; PATRICIA Conde International Organizer: Signed Normal [facility] .Auto Diffon 05-11-2025 Basophil, Absolute 0.1 10 3/mcL Normal 0.0-0.3 [facility] Comment on above: Performed By: #### U BELKYS, CMP, GFR, CRP, VIDH, LIPID, A1C, CBC, ADIFF, ANEU #### [facility] [address] [place], [place] [address] Basophils/100 WBC (Bld) 0.9 % Normal 0.0-2.5 [facility] Comment on above: Performed By: #### U BELKYS, CMP, GFR, CRP, VIDH, LIPID, A1C, CBC, ADIFF, ANEU #### [address] [address] Eosinophil, Absolute 0.6 10 3/mcL Normal 0.0-0.7 [facility] Comment on above: Performed By: #### U BELKYS, CMP, GFR, CRP, VIDH, LIPID, A1C, CBC, ADIFF, ANEU #### [address] [address] Eosinophils/100 WBC (Bld) 8.7 % High 0.0-6.0 [facility] Comment on above: Performed By: #### U BELKYS, CMP, GFR, CRP, VIDH, LIPID, A1C, CBC, ADIFF, ANEU #### [address] [address] Lymphocyte, Absolute 1.4 10 3/mcL Normal 0.9-4.3 [facility] Comment on above: Performed By: #### U BELKYS, CMP, GFR, CRP, VIDH, LIPID, A1C, CBC, ADIFF, ANEU #### [address] [address] Lymphocytes/100 WBC (Bld) 20.1 % Normal 20.0-40.0 [facility] Comment on above: Performed By: #### U BELKYS, CMP, GFR, CRP, VIDH, LIPID, A1C, CBC, ADIFF, ANEU #### [address] [address] Monocyte, Absolute 0.6 10 3/mcL Normal 0.1-1.4 [facility] Comment on above: Performed By: #### U BELKYS, CMP, GFR, CRP, VIDH, LIPID, A1C, CBC, ADIFF, ANEU #### [address] [address] Monocytes/100 WBC (Bld) 8.2 % Normal 2.0-13.0 [facility] Comment on above: Performed By: #### U BELKYS, CMP, GFR, CRP, VIDH, LIPID, A1C, CBC, ADIFF, ANEU #### [address] [address] Neutrophils/100 WBC (Bld) 62.1 % Normal 50.0-75.0 [facility] Comment on above: Performed By: #### U BELKYS, CMP, GFR, CRP, VIDH, LIPID, A1C, CBC, ADIFF, ANEU #### [address] [address] .GFRon 05-11-2025 Estimated Glomerular Filtration Rate 100 ml/min/1.73sqm Normal [facility] Comment on above: Result Comment: Stages of [...] the eGFR results. Performed By: #### U BELKYS, CMP, GFR, CRP, VIDH, LIPID, A1C, CBC, ADIFF, ANEU #### [address] [address] .NEUABSon 05-11-2025 Neutrophil, Absolute 4.3 10 3/mcL Normal 2.3-8.1 [facility] Comment on above: Performed By: #### U BELKYS, CMP, GFR, CRP, VIDH, LIPID, A1C, CBC, ADIFF, ANEU #### [address] [address] CBCon 05-11-2025 Erythrocyte distribution width (RBC) [Ratio] 13.7 % Normal 11.5-15.5 [facility] Comment on above: Order Comment: Pleas e do stat Performed By: #### U BELKYS, CMP, GFR, CRP, VIDH, LIPID, A1C, CBC, ADIFF, ANEU #### [address] [address] Hematocrit (Bld) [Volume fraction] 43.7 % Normal 40.0-52.0 [facility] Comment on above: Order Comment: Pleas e do stat Performed By: #### U BELKYS, CMP, GFR, CRP, VIDH, LIPID, A1C, CBC, ADIFF, ANEU #### [address] [address] Hgb 15.0 G/dL Normal 13.0-17.5 [facility] Comment on above: Order Comment: Pleas e do stat Performed By: #### U BELKYS, CMP, GFR, CRP, VIDH, LIPID, A1C, CBC, ADIFF, ANEU #### [place] [address] MCH (RBC) [Entitic mass] 29.3 pg Normal 27.0-33.0 [facility] Comment on above: Order Comment: Pleas e do stat Performed By: #### U BELKYS, CMP, GFR, CRP, VIDH, LIPID, A1C, CBC, ADIFF, ANEU #### [place] [address] MCHC 34.2 G/dL Normal 32.0-36.0 [facility] Comment on above: Order Comment: Pleas e do stat Performed By: #### U BELKYS, CMP, GFR, CRP, VIDH, LIPID, A1C, CBC, ADIFF, ANEU #### [place] [address] MCV (RBC) [Entitic vol] 85.7 fL Normal 81.0-100.0 [facility] Comment on above: Order Comment: Pleas e do stat Performed By: #### U BELKYS, CMP, GFR, CRP, VIDH, LIPID, A1C, CBC, ADIFF, ANEU #### [place] [address] Platelet 244 10 3/mcL Normal 150-450 [facility] Comment on above: Order Comment: Pleas e do stat Performed By: #### U BELKYS, CMP, GFR, CRP, VIDH, LIPID, A1C, CBC, ADIFF, ANEU #### [address] [address] Platelet mean volume (Bld) [Entitic vol] 7.3 fL Normal 6.4-10.5 [facility] Comment on above: Order Comment: Pleas e do stat Performed By: #### U BELKYS, CMP, GFR, CRP, VIDH, LIPID, A1C, CBC, ADIFF, ANEU #### [address] [address] RBC 5.10 10 6/mcL Normal 4.50-6.00 [facility] Comment on above: Order Comment: Pleas e do stat Performed By: #### U BELKYS, CMP, GFR, CRP, VIDH, LIPID, A1C, CBC, ADIFF, ANEU #### [address] [address] WBC 6.9 10 3/mcL Normal 4.5-10.8 [facility] Comment on above: Order Comment: Pleas e do stat Performed By: #### U BELKYS, CMP, GFR, CRP, VIDH, LIPID, A1C, CBC, ADIFF, ANEU #### [address] [address] CMPon 05-11-2025 Albumin/Globulin [Mass ratio] 1.0 {ratio} Low 1.1-2.5 [facility] Comment on above: Order Comment: Pleas e do stat Performed By: #### U BELKYS, CMP, GFR, CRP, VIDH, LIPID, A1C, CBC, ADIFF, ANEU #### [address] [address] ALP [Catalytic activity/Vol] 65 U/L Normal 40-135 [facility] Comment on above: Order Comment: Pleas e do stat Performed By: #### U BELKYS, CMP, GFR, CRP, VIDH, LIPID, A1C, CBC, ADIFF, ANEU #### [address] [address] Bili Total 0.4 mg/dL Normal 0.2-1.0 [facility] Comment on above: Order Comment: Pleas e do stat Result Comment: Use of this assay is not recommended for patients undergoing treatment with eltrombopag due to the potential for falsely elevated results. Performed By: #### U BELKYS, CMP, GFR, CRP, VIDH, LIPID, A1C, CBC, ADIFF, ANEU #### [place] [address] BUN/Creatinine Ratio 13 ratio Normal 7-27 [facility] [place] Comment on above: Order Comment: Pleas e do stat Performed By: #### U BELKYS, CMP, GFR, CRP, VIDH, LIPID, A1C, CBC, ADIFF, ANEU #### [place] [address] Creatinine [Mass/Vol] 0.98 mg/dL Normal 0.67-1.17 [facility] Comment on above: Order Comment: Pleas e do stat Performed By: #### U BELKYS, CMP, GFR, CRP, VIDH, LIPID, A1C, CBC, ADIFF, ANEU #### [place] [address] Globulin 3.9 G/dL Normal 2.7-4.4 [facility] Comment on above: Order Comment: Pleas e do stat Performed By: #### U BELKYS, CMP, GFR, CRP, VIDH, LIPID, A1C, CBC, ADIFF, ANEU #### [place] [address] Total Protein 7.9 G/dL Normal 6.4-8.2 [facility] Comment on above: Order Comment: Pleas e do stat Performed By: #### U BELKYS, CMP, GFR, CRP, VIDH, LIPID, A1C, CBC, ADIFF, ANEU #### [place] [address] Albumin Level 4.0 G/dL Normal 3.5-5.0 [facility] Comment on above: Order Comment: Pleas e do stat Performed By: #### U BELKYS, CMP, GFR, CRP, VIDH, LIPID, A1C, CBC, ADIFF, ANEU #### [address] [address] ALT [Catalytic activity/Vol] 41 U/L Normal 16-63 [facility] Comment on above: Order Comment: Pleas e do stat Performed By: #### U BELKYS, CMP, GFR, CRP, VIDH, LIPID, A1C, CBC, ADIFF, ANEU #### [address] [address] AST [Catalytic activity/Vol] 19 U/L Normal 10-40 [facility] Comment on above: Order Comment: Pleas e do stat Performed By: #### U BELKYS, CMP, GFR, CRP, VIDH, LIPID, A1C, CBC, ADIFF, ANEU #### [address] [address] Calcium [Mass/Vol] 9.2 mg/dL Normal 8.4-10.2 [facility] Comment on above: Order Comment: Pleas e do stat Performed By: #### U BELKYS, CMP, GFR, CRP, VIDH, LIPID, A1C, CBC, ADIFF, ANEU #### [address] [address] Chloride [Moles/Vol] 104 mmol/L Normal 98-107 [facility] [place] Comment on above: Order Comment: Pleas e do stat Performed By: #### U BELKYS, CMP, GFR, CRP, VIDH, LIPID, A1C, CBC, ADIFF, ANEU #### [address] [address] CO2 [Moles/Vol] 26 mmol/L Normal 22-29 [facility] Comment on above: Order Comment: Pleas e do stat Performed By: #### U BELKYS, CMP, GFR, CRP, VIDH, LIPID, A1C, CBC, ADIFF, ANEU #### [address] [address] Electrolyte Balance 9.0 mEq/L Normal 4.0-15.[address] [facility] Comment on above: Order Comment: Pleas e do stat Performed By: #### U BELKYS, CMP, GFR, CRP, VIDH, LIPID, A1C, CBC, ADIFF, ANEU #### [address] [address] Glucose [Mass/Vol] 149 mg/dL High 70-105 [facility] Comment on above: Order Comment: Pleas e do stat Performed By: #### U BELKYS, CMP, GFR, CRP, VIDH, LIPID, A1C, CBC, ADIFF, ANEU #### [address] [address] Potassium [Moles/Vol] 3.7 mmol/L Normal 3.5-5.1 [facility] Comment on above: Order Comment: Pleas e do stat Performed By: #### U BELKYS, CMP, GFR, CRP, VIDH, LIPID, A1C, CBC, ADIFF, ANEU #### [address] [address] Sodium [Moles/Vol] 139 mmol/L Normal 136-145 [facility] Comment on above: Order Comment: Pleas e do stat Performed By: #### U BELKYS, CMP, GFR, CRP, VIDH, LIPID, A1C, CBC, ADIFF, ANEU #### [address] [address] Urea nitrogen [Mass/Vol] 13 mg/dL Normal 7-18 [facility] Comment on above: Order Comment: Pleas e do stat Performed By: #### U BELKYS, CMP, GFR, CRP, VIDH, LIPID, A1C, CBC, ADIFF, ANEU #### [address] [address] ESRon 05-11-2025 Erythrocyte Sed Rate 5 mm/hr Normal 0-15 [facility] [place] Comment on above: Performed By: #### U BELKYS, CMP, GFR, CRP, VIDH, LIPID, A1C, CBC, ADIFF, ANEU #### [address] [address] LABORATORYOrdered By: Mahesh Lainez on 05-11-2025 Appearance [...] SS UAon 05-11-2025 Color (U) Yellow Normal [facility] Comment on above: Order Comment: Pleas e do stat Performed By: #### U BELKYS, CMP, GFR, CRP, VIDH, LIPID, A1C, CBC, ADIFF, ANEU #### [address] [address] Glucose (U) [Mass/Vol] mg/dL Abnormal Negative [facility] Comment on above: Order Comment: Pleas e do stat Performed By: #### U BELKYS, CMP, GFR, CRP, VIDH, LIPID, A1C, CBC, ADIFF, ANEU #### [place] [address] Ketones Ql (U) Negative Normal Negative [facility] Comment on above: Order Comment: Pleas e do stat Performed By: #### U BELKYS, CMP, GFR, CRP, VIDH, LIPID, A1C, CBC, ADIFF, ANEU #### [place] [address] UA Appear Clear Normal Clear [facility] Comment on above: Order Comment: Pleas e do stat Performed By: #### U BELKYS, CMP, GFR, CRP, VIDH, LIPID, A1C, CBC, ADIFF, ANEU #### [address] [address] UA Blood Negative Normal Negative [facility] Comment on above: Order Comment: Pleas e do stat Performed By: #### U BELKYS, CMP, GFR, CRP, VIDH, LIPID, A1C, CBC, ADIFF, ANEU #### [address] [address] UA Leuk Est Negative Normal Negative [facility] Comment on above: Order Comment: Pleas e do stat Performed By: #### U BELKYS, CMP, GFR, CRP, VIDH, LIPID, A1C, CBC, ADIFF, ANEU #### [place] [address] UA Nitrite Negative Normal Negative [facility] Comment on above: Order Comment: Pleas e do stat Performed By: #### U BELKYS, CMP, GFR, CRP, VIDH, LIPID, A1C, CBC, ADIFF, ANEU #### [place] [address] UA pH 6.0 Normal 5.0 - 8.0 [facility] Comment on above: Order Comment: Pleas e do stat Performed By: #### U BELKYS, CMP, GFR, CRP, VIDH, LIPID, A1C, CBC, ADIFF, ANEU #### [place] [address] UA Protein Negative Normal Negative [facility] Comment on above: Order Comment: Pleas e do stat Performed By: #### U BELKYS, CMP, GFR, CRP, VIDH, LIPID, A1C, CBC, ADIFF, ANEU #### [place] [address] UA Spec Grav <=1.005 Abnormal 1.015-1.025 [facility] Comment on above: Order Comment: Pleas e do stat Performed By: #### U BELKYS, CMP, GFR, CRP, VIDH, LIPID, A1C, CBC, ADIFF, ANEU #### [place] [address] UA Specimen Type Clean Catch Normal [facility] Comment on above: Order Comment: Pleas e do stat Performed By: #### U BELKYS, CMP, GFR, CRP, VIDH, LIPID, A1C, CBC, ADIFF, ANEU #### [place] [address] UA Urobilinogen 0.2 E.U./dL Normal 0.2-1.0 [facility] Comment on above: Order Comment: Pleas e do stat Performed By: #### U BELKYS, CMP, GFR, CRP, VIDH, LIPID, A1C, CBC, ADIFF, ANEU #### [address] [address] Urobilinogen (U) [Mass/Vol] Negative Normal Negative [facility] Comment on above: Order Comment: Pleas e do stat Performed By: #### U BELKYS, CMP, GFR, CRP, VIDH, LIPID, A1C, CBC, ADIFF, ANEU #### [address] [address] [address] SOFT TISSUE NECK W/ CONTR Sanjuana [...] impacted. Dental consultation is advised. Interpreted by: Ernestine De Jesus MD Preliminary Report By: Ernestine De Jesus MD Electronically signed By Ernestine De Jesus MD Dictated Date: 03/02/2025 1:50:47 PM Prelim Date: 03/02/2025 1:59:18 PM Sign Date: 03/02/2025 1:59:18 PM Ordering Provider: WANDA MATA [facility] .Auto Diffon 02-23-2025 Basophil, Absolute 0.0 10 3/mcL Normal 0.0-0.3 [facility] [place] Comment on above: Performed By: #### U BELKYS, CMP, GFR, CRP, VIDH, LIPID, A1C, CBC, ADIFF, ANEU #### [address] [address] Basophils/100 WBC (Bld) 0.6 % Normal 0.0-2.5 [facility] Comment on above: Performed By: #### U BELKYS, CMP, GFR, CRP, VIDH, LIPID, A1C, CBC, ADIFF, ANEU #### [address] [address] Eosinophil, Absolute 0.3 10 3/mcL Normal 0.0-0.7 [facility] Comment on above: Performed By: #### U BELKYS, CMP, GFR, CRP, VIDH, LIPID, A1C, CBC, ADIFF, ANEU #### [address] [address] Eosinophils/100 WBC (Bld) 4.4 % Normal 0.0-6.0 [facility] Comment on above: Performed By: #### U BELKYS, CMP, GFR, CRP, VIDH, LIPID, A1C, CBC, ADIFF, ANEU #### [address] [address] Lymphocyte, Absolute 1.8 10 3/mcL Normal 0.9-4.3 [facility] Comment on above: Performed By: #### U BELKYS, CMP, GFR, CRP, VIDH, LIPID, A1C, CBC, ADIFF, ANEU #### [address] [address] Lymphocytes/100 WBC (Bld) 25.6 % Normal 20.0-40.0 [facility] Comment on above: Performed By: #### U BELKYS, CMP, GFR, CRP, VIDH, LIPID, A1C, CBC, ADIFF, ANEU #### [address] [address] Monocyte, Absolute 0.7 10 3/mcL Normal 0.1-1.4 [facility] Comment on above: Performed By: #### U BELKYS, CMP, GFR, CRP, VIDH, LIPID, A1C, CBC, ADIFF, ANEU #### [address] [address] Monocytes/100 WBC (Bld) 9.6 % Normal 2.0-13.0 [facility] Comment on above: Performed By: #### U BELKYS, CMP, GFR, CRP, VIDH, LIPID, A1C, CBC, ADIFF, ANEU #### [address] [address] Neutrophils/100 WBC (Bld) 59.8 % Normal 50.0-75.0 [facility] Comment on above: Performed By: #### U BELKYS, CMP, GFR, CRP, VIDH, LIPID, A1C, CBC, ADIFF, ANEU #### [address] [address] .GFRon 02-23-2025 Estimated Glomerular Filtration Rate 92 ml/min/1.73sqm Normal [facility] Comment on above: Result Comment: Stages of [...] the eGFR results. Performed By: #### U BELKYS, CMP, GFR, CRP, VIDH, LIPID, A1C, CBC, ADIFF, ANEU #### [address] [address] .NEUABSon 02-23-2025 Neutrophil, Absolute 4.2 10 3/mcL Normal 2.3-8.1 [facility] Comment on above: Performed By: #### U BELKYS, CMP, GFR, CRP, VIDH, LIPID, A1C, CBC, ADIFF, ANEU #### [address] [address] A1Con 02-23-2025 Glucose [Mass/Vol] 126 mg/dL Normal [facility] Comment on above: Result Comment: Rama mated Average Glucose calculated by equation ((28.7xA1C)-46.7) Estimated average glucose (eAG) is a calculated value from Hemoglobin A1C and is financial representative of the average blood glucose level in the last 2-3 month period. Normal range: less than 114 mg/dL Performed By: #### U BELKYS, CMP, GFR, CRP, VIDH, LIPID, A1C, CBC, ADIFF, ANEU #### [place] [id number] HbA1c (Bld) [Mass fraction] 6.0 % Normal 4.3-6.4 [facility] Comment on above: Performed By: #### U BELKYS, CMP, GFR, CRP, VIDH, LIPID, A1C, CBC, ADIFF, ANEU #### [place] [id number] CBCon 02-23-2025 Erythrocyte distribution width (RBC) [Ratio] 13.7 % Normal 11.5-15.5 [facility] Comment on above: Performed By: #### U BELKYS, CMP, GFR, CRP, VIDH, LIPID, A1C, CBC, ADIFF, ANEU #### [place] [address] Hematocrit (Bld) [Volume fraction] 45.1 % Normal 40.0-52.0 [facility] Comment on above: Performed By: #### U BELKYS, CMP, GFR, CRP, VIDH, LIPID, A1C, CBC, ADIFF, ANEU #### [place] [address] Hgb 15.6 G/dL Normal 13.0-17.5 [facility] Comment on above: Performed By: #### U BELKYS, CMP, GFR, CRP, VIDH, LIPID, A1C, CBC, ADIFF, ANEU #### [place] [address] MCH (RBC) [Entitic mass] 29.4 pg Normal 27.0-33.0 [facility] Comment on above: Performed By: #### U BELKYS, CMP, GFR, CRP, VIDH, LIPID, A1C, CBC, ADIFF, ANEU #### [address] [address] MCHC 34.6 G/dL Normal 32.0-36.0 [facility] Comment on above: Performed By: #### U BELKYS, CMP, GFR, CRP, VIDH, LIPID, A1C, CBC, ADIFF, ANEU #### [place] [address] MCV (RBC) [Entitic vol] 84.9 fL Normal 81.0-100.0 [facility] Comment on above: Performed By: #### U BELKYS, CMP, GFR, CRP, VIDH, LIPID, A1C, CBC, ADIFF, ANEU #### [address] [address] Platelet 270 10 3/mcL Normal 150-450 [facility] Comment on above: Performed By: #### U BELKYS, CMP, GFR, CRP, VIDH, LIPID, A1C, CBC, ADIFF, ANEU #### [address] [address] Platelet mean volume (Bld) [Entitic vol] 7.4 fL Normal 6.4-10.5 [facility] Comment on above: Performed By: #### U BELKYS, CMP, GFR, CRP, VIDH, LIPID, A1C, CBC, ADIFF, ANEU #### [address] [address] RBC 5.31 10 6/mcL Normal 4.50-6.00 [facility] Comment on above: Performed By: #### U BELKYS, CMP, GFR, CRP, VIDH, LIPID, A1C, CBC, ADIFF, ANEU #### [address] [address] WBC 7.0 10 3/mcL Normal 4.5-10.8 [facility] Comment on above: Performed By: #### U BELKYS, CMP, GFR, CRP, VIDH, LIPID, A1C, CBC, ADIFF, ANEU #### [address] [address] CMPon 02-23-2025 Albumin Level 4.3 G/dL Normal 3.5-5.0 [facility] Comment on above: Performed By: #### U BELKYS, CMP, GFR, CRP, VIDH, LIPID, A1C, CBC, ADIFF, ANEU #### [address] [address] Albumin/Globulin [Mass ratio] 1.2 {ratio} Normal 1.1-2.5 [facility] Comment on above: Performed By: #### U BELKYS, CMP, GFR, CRP, VIDH, LIPID, A1C, CBC, ADIFF, ANEU #### [address] [address] ALP [Catalytic activity/Vol] 75 U/L Normal 40-135 [facility] Comment on above: Performed By: #### U BELKYS, CMP, GFR, CRP, VIDH, LIPID, A1C, CBC, ADIFF, ANEU #### [address] [address] ALT [Catalytic activity/Vol] 34 U/L Normal 16-63 [facility] Comment on above: Performed By: #### U BELKYS, CMP, GFR, CRP, VIDH, LIPID, A1C, CBC, ADIFF, ANEU #### [address] [address] AST [Catalytic activity/Vol] 22 U/L Normal 10-40 [facility] Comment on above: Performed By: #### U BELKYS, CMP, GFR, CRP, VIDH, LIPID, A1C, CBC, ADIFF, ANEU #### [address] [address] Bili Total 0.4 mg/dL Normal 0.2-1.0 [facility] Comment on above: Result Comment: Use of this assay is not recommended for patients undergoing treatment with eltrombopag due to the potential for falsely elevated results. Performed By: #### U BELKYS, CMP, GFR, CRP, VIDH, LIPID, A1C, CBC, ADIFF, ANEU #### [address] [address] BUN/Creatinine Ratio 13 ratio Normal 7-27 [facility] Comment on above: Performed By: #### U BELKYS, CMP, GFR, CRP, VIDH, LIPID, A1C, CBC, ADIFF, ANEU #### [address] [address] Calcium [Mass/Vol] 9.4 mg/dL Normal 8.4-10.2 [facility] Comment on above: Performed By: #### U BELKYS, CMP, GFR, CRP, VIDH, LIPID, A1C, CBC, ADIFF, ANEU #### [address] [address] Chloride [Moles/Vol] 104 mmol/L Normal 98-107 [facility] Comment on above: Performed By: #### U BELKYS, CMP, GFR, CRP, VIDH, LIPID, A1C, CBC, ADIFF, ANEU #### [address] [address] CO2 [Moles/Vol] 30 mmol/L High 22-29 [facility] Comment on above: Performed By: #### U BELKYS, CMP, GFR, CRP, VIDH, LIPID, A1C, CBC, ADIFF, ANEU #### [address] [address] Creatinine [Mass/Vol] 1.05 mg/dL Normal 0.70-1.30 [facility] Comment on above: Result Comment: Test ing performed on Siemens Dimension EXL analyzer using a modified kinetic Chuy technique. Performed By: #### U BELKYS, CMP, GFR, CRP, VIDH, LIPID, A1C, CBC, ADIFF, ANEU #### [address] [address] Electrolyte Balance 6.0 mEq/L Normal 4.0-15.[address] [facility] Comment on above: Performed By: #### U BELKYS, CMP, GFR, CRP, VIDH, LIPID, A1C, CBC, ADIFF, ANEU #### [address] [address] Globulin 3.6 G/dL Normal 1.5-3.8 [facility] Comment on above: Performed By: #### U BELKYS, CMP, GFR, CRP, VIDH, LIPID, A1C, CBC, ADIFF, ANEU #### [address] [address] Glucose [Mass/Vol] 129 mg/dL High 70-105 [facility] Comment on above: Performed By: #### U BELKYS, CMP, GFR, CRP, VIDH, LIPID, A1C, CBC, ADIFF, ANEU #### [address] [address] Potassium [Moles/Vol] 3.8 mmol/L Normal 3.5-5.1 [facility] Comment on above: Performed By: #### U BELKYS, CMP, GFR, CRP, VIDH, LIPID, A1C, CBC, ADIFF, ANEU #### [address] [address] Sodium [Moles/Vol] 140 mmol/L Normal 136-145 [facility] Comment on above: Performed By: #### U BELKYS, CMP, GFR, CRP, VIDH, LIPID, A1C, CBC, ADIFF, ANEU #### [address] [address] Total Protein 7.9 G/dL Normal 6.4-8.2 [facility] Comment on above: Performed By: #### U BELKYS, CMP, GFR, CRP, VIDH, LIPID, A1C, CBC, ADIFF, ANEU #### [address] [address] Urea nitrogen [Mass/Vol] 14 mg/dL Normal 7-18 [facility] Comment on above: Performed By: #### U BELKYS, CMP, GFR, CRP, VIDH, LIPID, A1C, CBC, ADIFF, ANEU #### [address] [address] FT4on 02-23-2025 Free T4 [Mass/Vol] 0.90 ng/dL Normal 0.76-1.46 [facility] Comment on above: Performed By: #### U BELKYS, CMP, GFR, CRP, VIDH, LIPID, A1C, CBC, ADIFF, ANEU #### [address] [address] LIPIDon 02-23-2025 Cholesterol [Mass/Vol] 138 mg/dL Normal 0-200 [facility] Comment on above: Result Comment: Chol esterol Reference Interval: Less than 200 Desirable 200-239 Borderline high risk 240 and above High risk Performed By: #### U BELKYS, CMP, GFR, CRP, VIDH, LIPID, A1C, CBC, ADIFF, ANEU #### [address] [address] Cholesterol in HDL [Mass/Vol] 39 mg/dL Low 40-60 [facility] Comment on above: Performed By: #### U BELKYS, CMP, GFR, CRP, VIDH, LIPID, A1C, CBC, ADIFF, ANEU #### [address] [address] Cholesterol in LDL [Mass/Vol] 74 mg/dL Normal 0-130 [facility] Comment on above: Performed By: #### U BELKYS, CMP, GFR, CRP, VIDH, LIPID, A1C, CBC, ADIFF, ANEU #### [address] [address] Triglyceride [Mass/Vol] 124 mg/dL Normal 0-150 [facility] Comment on above: Result Comment: Trig lyceride Reference Interval: Less than 150 Normal 150-199 Borderline high risk 200-499 High risk 500 or higher Very high risk Performed By: #### U BELKYS, CMP, GFR, CRP, VIDH, LIPID, A1C, CBC, ADIFF, ANEU #### [address] [address] TSHon 02-23-2025 TSH Qn 3.30 m[IU]/L Normal 0.36-3.74 [facility] Comment on above: Performed By: #### U BELKYS, CMP, GFR, CRP, VIDH, LIPID, A1C, CBC, ADIFF, ANEU #### [place] [address] [place], [place] [address] VIDHon 02-23-2025 Vit. D 25-Hydroxy 58.9 ng/mL Normal [facility] Comment on above: Result Comment: Inte rpretive Values Based on Total 25(OH) Vitamin D: Deficient <20 ng/mL Insufficient 20 - <30 ng/mL Sufficient 30-100 ng/mL Performed By: #### U BELKYS, CMP, GFR, CRP, VIDH, LIPID, A1C, CBC, ADIFF, ANEU #### [place] [address] [place], [place] [address] Bedside Glucoseon 02-05-2025 FINGERSTICK GLU 129 mg/dL High 74-106 [facility] Comment on above: Result Comment: TANA DUENAS OF PATIENT CARE PER NURSING PROTOCOL Performed By: #### L 501.080 #### [facility] [address] [facility]. [place], [place], [address] Cerv Spine 4 or 5 Viewson Cerv Spine 4 or 5 Views [facility] Imaging Services [address] [place] [address] Cerv Spine 4 or 5 Views MR#: [id number] Acct: [id number] Name: LEONEL LAKE Rep #: [id number] : 1985 M 39 From: Perez Florian PCP: PATRICIA Briscoe Status: [facility] Study: Cerv Spine 4 or 5 Views Date of Exam: 02/05/25 Exam# [id number] Ordering Dr: Marc Aquino MD EXAM: CERV [...] 5 Views IMPRESSION: As above Reading Location: [id number] CC: DRAG CAR RACER-C Wanda Mata; Dr. Marc Aquino MD International Organizer: Signed Normal [facility] Glucose measurement at [facility] deOrdered By: Marc Aquino on 02-05-2025 Glucose [Mass/Vol] 129 mg/dL High 74-106 [facility] Comment on above: MANAGEMENT OF PATIEN T CARE PER NURSING PROTOCOL MR/POSTOP.ANEon 02-05-2025 MR/POSTOP.[facility] Medical Records Department [address] [place] [address] Anesthesia Postop Eval I 02/05/25 0804 MR#: [id number] Acct: [id number] Name: LEONEL LAKE Rep #: [id number] : 1985 39 From: Sherice Ortiz CRNA PCP: Wanda Mata, DRAG CAR RACER-C Status:REG SDC Y Race: C Location: [place] [address] Anesthesia: Postop Eval I Current Vital Signs [...] Anesthesia document: Postop Eval 1 completed: Yes 02/05/25803 Date Sherice Ortiz GANG HEAD SAW OPERATOR Cosigner Signature: Date CC: Signed Normal [facility] MR/[id number] 02-05-2025 MR/POSTOPAN2 [facility] Medical Records Department [address] [place] [address] Anesthesia Postop Eval II 02/05/25 1002 MR#: [id number] Acct: [id number] Name: LEONEL LAKE Rep #: [id number] : 1985 39 From: Hina Macedo PCP: Wanda Mata, DRAG CAR RACER-C Status:DEP [facility] [place] Y Race: C Location: [facility] [place] Anesthesia Postop Eval I Sum Postop Eval Completion status Anesthesia document: Postop Eval 1 completed: Yes Anesthesia Postop Eval I Summary Anesthesia Postop Eval I Summary: Anesthesia Postop Eval I: Assessment Summary Airway patent Yes 02/05/25 08:04 GANG HEAD SAW OPERATOR.LMIL Spontaneous unlabored Yes 02/05/25 08:04 GANG HEAD SAW OPERATOR.LMIL respirations Mental status Awake 02/05/25 08:04 GANG HEAD SAW OPERATOR.LMIL nausea No 02/05/25 08:04 GANG HEAD SAW OPERATOR.LMIL Vomiting No 02/05/25 08:04 GANG HEAD SAW OPERATOR.LMIL Anesthesia Postop Eval I: Fluid Summary Crystalloid volume administer 250 02/05/25 08:04 GANG HEAD SAW OPERATOR.LMIL (ml) Colloids volume administered ( ml) Blood Product volume administered (ml) Total IV fluid infused 250 02/05/25 08:04 GANG HEAD SAW OPERATOR.LMIL Anesthesia Postop Eval I: Summary Notes Anesthesia Complication No 02/05/25 08:04 GANG HEAD SAW OPERATOR.LMIL Anesthesia Complication Comment: Post-operative progress note Anesthesia: Postop Eval II Evaluation Mental status: Awake Pain Level: 3 nausea: No Vomiting: No 02/05/25 1002 Date Hina Sol Signature: Date CC: Signed Normal [facility] O.R. Fluoro for C-Markell 03- O.R. Fluoro for C-Arm [facility] Imaging Services [address] [place] [address] [place], [place] [id number] O.R. Fluoro for C-Arm MR#: [id number] Acct: [id number] Name: LEONEL LAKE Rep #: [id number] : 1985 M 39 From: Perez Florian PCP: PATRICIA Briscoe Status: [facility] Study: O.R. Fluoro for C-Arm Date of Exam: 02/05/25 Exam# [id number] Ordering Dr: Marc Aquino MD EXAM: CERV [...] for C-Arm IMPRESSION: As above Reading Location: [id number] CC: DRAG CAR RACER-C Wanda Mata; Dr. Marc Aquino MD International Organizer: Signed Normal [facility] Operative Reporton Operative Report [facility] Medical Records Department [address] [place] [address] Operative Report 02/05/25 0757 MR#: [id number] Acct: [id number] Name: LEONEL LAKE Rep #: [id number] : 1985 39 From: Marc Aquino MD PCP: PATRICIA Briscoe Status:[facility] Location: [place] [address] Operative Report (Standard) Operative Information Date of Procedure: 02/05/25 Pre-Operative Diagnosis: 1 Post-Operative Diagnosis: 1 Surgery/Procedure Performed: 1 able bodied tankerman: No Type of Anesthesia: Local MAC RN [...] PATRICIA Mata; Dr. Marc Aquino MD Signed [facility] LABORATORYOrdered By: Jeffrey Shaikh on 01-18-2025 HbA1c (Bld) [Mass fraction] 6.1 % [facility] Work Phone: Lab Performing Location [facility] Work Phone: LABORATORYOrdered By: Charley yun on 10-18-2024 HbA1c (Bld) [Mass fraction] 6.3 % [facility] Work Phone: Lab Performed By Charley Sterling PharmD [facility] Work Phone: Lab Performing Location [facility] Work Phone: XR Hand - left 3 Viewson No acute osseous abnormality left hand. Report Dictated on Electronically Signed By: Davin Cunningham MD Electronically Signed Date/Time: 09/23/2024 10:58 AM [facility] [place] [facility] RADIOLOGY SYSTEM Patient Name: LEONEL LAKE : [...] identified. There is no soft tissue abnormality. [facility] Davin Cunningham MD - 09/23/2024 Patient [...] Electronically Signed Date/Time: 09/23/2024 10:58 AM EDT [facility] Radiology Study observation (narrative) [facility] XR Hand - left 3 ViewsOrdere d By: Davin Cunningham on 09-23-2024 [facility] Work Phone: LABORATORYOrdered By: Charley yun on 07-19-2024 Lab Performed By Charley Sterling PharmD [facility] Work Phone: .Auto Diffon 06-29-2024 Basophil, Absolute 0.1 10 3/mcL Normal 0.0-0.2 [facility] ([place]) Comment on above: Performed By: #### C MP, LIP, ANEU, GFR, ADIFF, CBC, TROPHS, MDW ####[facility] [place], [place] [address] Basophils/100 WBC (Bld) 1.2 % Normal 0.0-2.5 [facility] ([place]) Comment on above: Performed By: #### C MP, LIP, ANEU, GFR, ADIFF, CBC, YAO RICHARD ####[address] [place], [place] [address] Eosinophil, Absolute 0.8 10 3/mcL High 0.0-0.4 [facility] ([place]) Comment on above: Performed By: #### C MP, LIP, ANEU, GFR, ADIFF, CBC, YAO RICHARD ####[address] [place], [place] [address] Eosinophils/100 WBC (Bld) 11.1 % High 0.0-7.0 [facility] ([place] Comment on above: Performed By: #### C MP, LIP, ANEU, GFR, ADIFF, CBC, YAO RICHARD ####[address] [place], [place] [address] Lymphocyte, Absolute 1.7 10 3/mcL Normal 0.8-3.9 [facility] ([place]) Comment on above: Performed By: #### C MP, LIP, ANEU, GFR, ADIFF, EUN, YAO RICHARD ####[address] [place], [place] [address] Lymphocytes/100 WBC (Bld) 22.5 % Normal 10.0-50.0 [facility] ([place] Comment on above: Performed By: #### C MP, LIP, ANEU, GFR, ADIFF, CBC, YAO RICHARD ####[address] [place], [place] [address] Monocyte, Absolute 0.7 10 3/mcL Normal 0.2-1.0 [facility] ([place] Comment on above: Performed By: #### C MP, LIP, ANEU, GFR, ADIFF, CBCHILARY MDW ####[address] [place], [place] [address] Monocytes/100 WBC (Bld) 8.9 % Normal 1.7-13.0 [facility] ([place] Comment on above: Performed By: #### C MP, LIP, ANEU, GFR, ADIFF, CBCHILARY MDW ####[address] [place], [place] [address] Neutrophils/100 WBC (Bld) 56.3 % Normal 37.0-80.0 [facility] ([place] Comment on above: Performed By: #### C MP, LIP, ANEU, GFR, ADIFF, CBC, YAO RICAHRD ####[address] [place], [place] [address] .GFRon 06-29-2024 GFR 99 ml/min/1.73sqm Normal [facility] ([place] Comment on above: Result Comment: GFR Population [...] #### C MP, LIP, ANEU, GFR, ADIFF, EUN, YAO RICHARD ####[address] [place], [place] [address] GFR Non- 81 ml/min/1.73sqm Normal [facility] ([place] Comment on above: Result Comment: GFR Population [...] LIP, ANEU, GFR, ADIFF, CBC, YAO RICHARD ####[address] [address] .MDWon 06-29-2024 Monocyte Distribution Width 20.31 High 0.00-20.00 [facility] ([place] Comment on above: Result Comment: For adults in ED, MDW>20.0 may be associated with a higher risk of sepsis during the first 12hrs of hospital admission Performed By: #### C MP, LIP, ANEU, GFR, ADIFF, CBC, YAO RICHARD ####[address] [address] .NEUABSon 06-29-2024 Neutrophil, Absolute 4.2 10 3/mcL Normal 2.9-6.2 [facility] ([place]) Comment on above: Performed By: #### C MP, LIP, ANEU, GFR, ADIFF, CBC, YAO RICHARD ####[address] [address] CBCon 06-29-2024 Erythrocyte distribution width (RBC) [Ratio] 13.9 % Normal 11.5-14.5 [facility] ([place] Comment on above: Performed By: #### C MP, LIP, ANEU, GFR, ADIFF, CBCHILARY MDW #### [place] [address] Hematocrit (Bld) [Volume fraction] 43.3 % Normal 42.0-52.0 [facility] ([place] Comment on above: Performed By: #### C MP, LIP, ANEU, GFR, ADIFF, CBCHILARY MDW #### [place] [address] Hgb 15.2 G/dL Normal 14.0-18.0 [facility] ([place] Comment on above: Performed By: #### C MP, LIP, ANEU, GFR, ADIFF, CBC, YAO RICHARD #### [place] [address]77 MCH (RBC) [Entitic mass] 29.3 pg Normal 27.0-31.2 [facility] ([place] Comment on above: Performed By: #### C MP, LIP, ANEU, GFR, ADIFF, CBC, YAO RICHARD #### [address] [address] MCHC 35.2 G/dL Normal 31.8-35.4 [facility] ([place] Comment on above: Performed By: #### C MP, LIP, ANEU, GFR, ADIFF, CBC, YAO RICHARD #### [address] [address] MCV (RBC) [Entitic vol] 83.3 fL Normal 80.0-94.0 [facility] ([place] Comment on above: Performed By: #### C MP, LIP, ANEU, GFR, ADIFF, CBC, YAO RICHARD #### [address] [address] Platelet 224 10 3/mcL Normal 130-400 [facility] ([place] Comment on above: Performed By: #### C MP, LIP, ANEU, GFR, ADIFF, EUN, YAO RICHARD #### [address] [address] Platelet mean volume (Bld) [Entitic vol] 7.2 fL Low 7.4-10.4 [facility] ([place] Comment on above: Performed By: #### C MP, LIP, ANEU, GFR, ADIFF, CBC, YAO RICHARD #### [address] [address] RBC 5.19 10 6/mcL Normal 4.04-6.13 [facility] ([place] Comment on above: Performed By: #### C MP, LIP, ANEU, GFR, ADIFF, CBC, YAO RICHARD #### [address] [address] WBC 7.4 10 3/mcL Normal 4.6-10.8 [facility] ([place] Comment on above: Performed By: #### C MP, LIP, ANEU, GFR, ADIFF, CBC, YAO RICHARD #### [address] [place], [place] [address] CMPon 06-29-2024 Albumin Level 3.8 G/dL Normal 3.5-5.0 [facility] ([place] Comment on above: Performed By: #### C MP, LIP, ANEU, GFR, ADIFF, CBC, YAO RICHARD ####[address] [place], [place] [address] Albumin/Globulin [Mass ratio] 1.2 {ratio} Normal 1.1-2.5 [facility] ([place] Comment on above: Performed By: #### C MP, LIP, ANEU, GFR, ADIFF, CBC, YAO RICHARD ####[address] [place], [place] [address] ALP [Catalytic activity/Vol] 96 U/L Normal 40-135 [facility] ([place] Comment on above: Performed By: #### C MP, LIP, ANEU, GFR, ADIFF, CBC, YAO RICHARD ####[address] [place], [place] [address] ALT [Catalytic activity/Vol] 32 U/L Normal 16-63 [facility] ([place] Comment on above: Performed By: #### C MP, LIP, ANEU, GFR, ADIFF, CBC, YAO RICHARD ####[address] [place], [place] [address] AST [Catalytic activity/Vol] 15 U/L Normal 10-40 [facility] ([place] Comment on above: Performed By: #### C MP, LIP, ANEU, GFR, ADIFF, EUN, YAO RICHARD ####[address] [place], [place] [address] Bili Total 0.4 mg/dL Normal 0.2-1.0 [facility] ([place]) Comment on above: Result Comment: Use of this assay is not recommended for patients undergoing treatment with eltrombopag due to the potential for falsely elevated results. Performed By: #### C MP, LIP, ANEU, GFR, ADIFF, CBC, YAO RICHARD ####[address] [place], [place] [address] BUN/Creatinine Ratio 15 ratio Normal 7-27 [facility] ([place] Comment on above: Performed By: #### C MP, LIP, ANEU, GFR, ADIFF, CBC, HILARY, YAO ####[address] [place], [place] [address] Calcium [Mass/Vol] 8.6 mg/dL Normal 8.4-10.2 [facility] ([place] Comment on above: Performed By: #### C MP, LIP, ANEU, GFR, ADIFF, CBC, YAO RICHARD ####[address] [place], [place] [address] Chloride [Moles/Vol] 103 mmol/L Normal 98-107 [facility] ([place] Comment on above: Performed By: #### C MP, LIP, ANEU, GFR, ADIFF, CBC, YAO RICHARD ####[address] [place], [place] [address] CO2 [Moles/Vol] 26 mmol/L Normal 22-29 [facility] ([place] Comment on above: Performed By: #### C MP, LIP, ANEU, GFR, ADIFF, CBC, YAO RICHARD ####[address] [place], [place] [address] Creatinine [Mass/Vol] 1.02 mg/dL Normal 0.70-1.30 [facility] ([place]) Comment on above: Performed By: #### C MP, LIP, ANEU, GFR, ADIFF, CBC, YAO RICHARD ####[address] [place], [place] [address] Electrolyte Balance 10.0 mEq/L Normal 4.0-15.0 [facility] ([place]) Comment on above: Performed By: #### C MP, LIP, ANEU, GFR, ADIFF, CBC, YAO RICHARD ####[address] [place], [place] [address] Globulin 3.2 G/dL Normal [facility] ([place] Comment on above: Performed By: #### C MP, LIP, ANEU, GFR, ADIFF, CBC, YAO RICHARD ####[address] [place], [place] [address] Glucose [Mass/Vol] 143 mg/dL High 70-105 [facility] ([place] Comment on above: Performed By: #### C MP, LIP, ANEU, GFR, ADIFF, CBC, YAO RICHARD ####[address] [place], [place] [address] Potassium [Moles/Vol] 3.6 mmol/L Normal 3.5-5.1 [facility] ([place]) Comment on above: Performed By: #### C MP, LIP, ANEU, GFR, ADIFF, CBC, YAO RICHARD ####[address] [place], [place] [address] Sodium [Moles/Vol] 139 mmol/L Normal 136-145 [facility] ([place]) Comment on above: Performed By: #### C MP, LIP, ANEU, GFR, ADIFF, HILARY HAQ MDW ####[address] [place], [place] [address] Total Protein 7.0 G/dL Normal 6.4-8.2 [facility]) Comment on above: Performed By: #### C MP, LIP, ANEU, GFR, ADIFF, HILARY HAQ MDW ####[address] [place], [place] [address] Urea nitrogen [Mass/Vol] 15 mg/dL Normal 7-18 [facility]) Comment on above: Performed By: #### C MP, LIP, ANEU, GFR, ADIFF, HILARY HAQ MDW ####[address] [place], [place] [address] CT ABD/PELVIS W/ IV CONTRAST ONLYon 06-29-2024 [...] Date: 06/29/2024 6:13:22 PM Ordering Provider: GILMA HYLTON [facility] ([place]) LABORATORYOrdered By: SYSTEM SYSTEM on 06-29-2024 Albumin [...] ng/L Male: 0-76 ng/L Testing performed on [employer] using a homogeneous sandwich chemiluminescent immunoassay based on [employer] technology. Urea nitrogen [Mass/Vol] 15 mg/dL Normal [...] 06-29-2024 Lipase Level 45 U/L Normal 16-77 [facility] ([place]) Comment on above: Performed By: #### C MP, LIP, ANEU, GFR, ADIFF, CBC, YAO RICHARD ####[address] [place], [place] [address] TROPHSon 06-29-2024 High Sensitivity Troponin I <4 Normal 0-76 [facility] ([place]) Comment on above: Result Comment: High Sensitive Troponin I Reference Ranges: Female: 0-51 ng/L Male: 0-76 ng/L Testing performed on [employer] using a homogeneous sandwich chemiluminescent immunoassay based on [employer] technology. Performed By: #### C MP, LIP, ANEU, GFR, ADIFF, CBC, YAO RICHARD ####[address] [address] UAon 06-29-2024 Color (U) Yellow Normal [facility] ([place]) Comment on above: Performed By: #### A DIFF, GFR, YAO MCGILL, BMP, CBC #### [address] [address] Glucose (U) [Mass/Vol] mg/dL Abnormal Negative [facility] ([place] Comment on above: Performed By: #### A DIFF, GFR, YAO MCGILL, BMP, CBC #### [address] [place] [address] [place], [place] [address] Ketones Ql (U) Negative Normal Negative [facility] ([place] Comment on above: Performed By: #### A DIFF, GFR, YAO MCGILL, BMP, CBC #### [address] [address] UA Appear Clear Normal Clear [facility] ([place] Comment on above: Performed By: #### A DIFF, GFR, ANEU, MDW, BMP, CBC #### [address] [address] UA Blood Negative Normal Negative [facility] ([place] Comment on above: Performed By: #### A DIFF, GFR, ANEU, MDW, BMP, CBC #### [address] [address] UA Leuk Est Negative Normal Negative [facility] ([place] Comment on above: Performed By: #### A DIFF, GFR, ANEU, MDW, BMP, CBC #### [address] [address] UA Nitrite Negative Normal Negative [facility] ([place] Comment on above: Performed By: #### A DIFF, GFR, ANEU, MDW, BMP, CBC #### [address] [address] UA pH 6.0 Normal 5.0 - 8.0 [facility] ([place] Comment on above: Performed By: #### A DIFF, GFR, ANEU, MDW, BMP, CBC #### [address] [address] UA Protein Negative Normal Negative [facility] ([place] Comment on above: Performed By: #### A DIFF, GFR, ANEU, MDW, BMP, CBC #### [address] [address] UA Spec Grav 1.015 Normal 1.015-1.025 [facility] ([place]) Comment on above: Performed By: #### A DIFF, GFR, ANEU, MDW, BMP, CBC #### [address] [address] UA Specimen Type Not Given Normal [facility] ([place] Comment on above: Performed By: #### A DIFF, GFR, ANEU, MDW, BMP, CBC #### [address] [address] UA Urobilinogen 0.2 E.U./dL Normal 0.2-1.0 [facility] ([place]) Comment on above: Performed By: #### A DIFF, GFR, YAO MCGILL, BMP, CBC #### [facility] [address] [place], [place] [address] Urobilinogen (U) [Mass/Vol] Negative Normal Negative [facility] ([place] Comment on above: Performed By: #### A DIFF, GFR, NANO, W, BMP, CBC #### [facility] [address] [place], [place] [address] XR CHEST 1 VIEWon 06-29-2024 XR CHEST [...] 06/29/2024 9:32:08 PM Ordering Provider: GILMA Mo [facility] ([place]) Basic metabolic 1998 panelon 04-01-2024 Anion gap [Moles/Vol] 11 mmol/L 3 - 13 mmol/L [facility] [employer] Calcium [Mass/Vol] 9.8 mg/dL 8.4 - 10. 4 mg/dL [facility] [employer] Chloride [Moles/Vol] 105 mmol/L 98 - 10 7 mmol/L [facility] [employer] CO2 [Moles/Vol] 22 mmol/L 22 - 30 mmol/L [facility] Creatinine [Mass/Vol] 0.72 mg/dL 0.66 - 1.25 mg/dL [facility] [employer] GFR/1.73 sq M.predicted MDRD (S/P/Bld) [Vol rate/Area] - PINF [facility] Comment on above: Calculation based on the Chronic Kidney Disease Epidemiology Collaboration (CKD-EPI) equation refit without adjustment for race Glucose [Mass/Vol] 178 mg/dL High 70 - 100 mg/dL [facility] Interpretation and review of laboratory results Abnormal [facility] Potassium [Moles/Vol] 3.9 mmol/L 3.5 - 5.1 mmol/L [facility] Sodium [Moles/Vol] 138 mmol/L 135 - 145 mmol/L [facility] Urea nitrogen [Mass/Vol] 12 mg/dL 9 - 20 mg/dL [facility] CBC W Auto Differential pane l (Bld)Ordered By: Ashley Pappas on 04-01-2024 Basophils (Bld) [#/Vol] 0.1 10*3/uL 0.0 - 0.2 10*3/uL [facility] Basophils/100 WBC (Bld) 0.8 % 0.0 - 2.0 % [facility] Eosinophils (Bld) [#/Vol] 0.6 10*3/uL High 0.0 - 0.5 10*3/uL [facility] Eosinophils/100 WBC (Bld) 9.6 % High 0.0 - 6.0 % [facility] Erythrocyte distribution width (RBC) [Ratio] 12.9 % 11.5 - 15.0 % [facility] Hematocrit (Bld) [Volume fraction] 42.6 % 40.0 - 52.0 % [facility] Hemoglobin (Bld) [Mass/Vol] 15.1 g/dL 13.0 - 18.0 g/dL [facility] Immature granulocytes (Bld) [#/Vol] 0.0 10*3/uL NINF - 0.1 10*3/uL [facility] Immature granulocytes/100 WBC (Bld) 0.2 % 0.0 - 2.0 % [facility] Interpretation and review of laboratory results Abnormal [facility] Lymphocytes (Bld) [#/Vol] 1.6 10*3/uL 1.0 - 4.3 10*3/uL [facility] Lymphocytes/100 WBC (Bld) 23.9 % 15.0 - 45.0 % [facility] MCH (RBC) [Entitic mass] 29.2 pg 26.0 - 34.0 pg [facility] MCHC (RBC) [Mass/Vol] 35.4 % 30.5 - 36.0 % [facility] MCV (RBC) [Entitic vol] 82.4 fL 77.0 - 99.0 fL [facility] Monocytes (Bld) [#/Vol] 0.5 10*3/uL 0.0 - 0.9 10*3/uL [facility] Monocytes/100 WBC (Bld) 7.9 % 5.0 - 13.0 % [facility] Neutrophils (Bld) [#/Vol] 3.8 10*3/uL 1.8 - 7.5 10*3/uL [facility] Neutrophils/100 WBC (Bld) 57.6 % 38.0 - 82.0 % [facility] Nucleated RBC/100 WBC (Bld) [Ratio] 0.0 % [facility] Platelet mean volume (Bld) [Entitic vol] 9.2 fL 9.0 - 12.7 fL [facility] Comment on above: MPV is a calculated measurement using platelet volume ratio Platelets (Bld) [#/Vol] 251 10*3/uL 140 - 440 10*3/uL [facility] RBC (Bld) [#/Vol] 5.17 10*6/uL 4.40 - 5.9 0 10*6/uL [facility] WBC (Bld) [#/Vol] 6.6 10*3/uL 3.6 - 10.7 10*3/uL [facility] Laboratory - Chemistry and C hemistry - challengeon 04-01-2024 Troponin I.cardiac [Mass/Vol] ng/mL NINF - 0.034 ng/mL [facility] No Panel Informationon 04-01 P Navarro 20 degrees [facility] AL Interval 161 ms [facility] QRS Navarro -44 degrees [facility] QRSD Interval 92 ms [facility] QT Interval 391 ms [facility] QTC Interval 440 ms [facility] T Wave Navarro 24 degrees [facility] Sinus rhythm Left anterior fascicular block Compared to 05/07/2022- no significant changes Electronically Signed On 04-01-2024 02:04:21 EDT by Triston Mccormick MD - 04/01/2024 IMPRESSION: Sinus rhythm Left anterior fascicular block Compared to 05/07/2022- no significant changes Electronically Signed On 04-01-2024 02:04:21 EDT by Triston Herrera [facility] Troponin I.cardiac [Mass/Vol ]on 04-01-2024 Interpretation and review of laboratory results Normal [facility] Patients with high levels of Biotin oral intake (ie >5 mg/day) may have falsely decreased Troponin levels. [facility] Vital signson 04-01-2024 Heart rate 76 /min bpm [facility] [employer] XR Chest Single viewon 04-01 No acute cardiopulmonary abnormality identified. Report Dictated on Electronically Signed By: Faisal Zafar MD Electronically Signed Date/Time: 04/01/2024 2:22 AM EDT [facility] Patient Name: LEONEL LAKE : 1985 Exam Date/Time: 04/01/2024 01:33 Procedure: XR CHEST [...] osseous abnormality is demonstrated. Other findings: None. [facility] Faisal Zafar MD - 04/01/2024 Patient Name: LEONEL LAKE : 1985 Exam Date/Time: 04/01/2024 01:33 Procedure: XR CHEST [...] Electronically Signed Date/Time: 04/01/2024 2:22 AM EDT [facility] Study observation (narrative) [facility] XR Chest Single viewOrdered By: Faisal Zafar on 04-01-2024 [facility] Work Phone: Thin prep Papanicolaou smear with manual screeningOrdered By: Marc Aquino on 02-07-2024 Thin prep Papanicolaou smear with manual screening 112 mg/dL 74-106 [facility] Comment on above: MANAGEMENT OF PATIEN [...] 12-27-2023 U Creatinine 18.4 mg/dL Low 39.0-259.0 [facility] ([place]) Comment on above: Performed By: #### M ALBR #### [address] [address] U Microalb 426 mcg/dL Normal [facility] ([place] Comment on above: Performed By: #### M ALBR #### [address] [address] U Ratio Alb/Cre 23 mcg/mg Normal 0-30 [facility] ([place] Comment on above: Performed By: #### M ALBR #### [address] [address] QUANTTBon 12-18-2023 QFT Criteria Comment Normal [facility] ([place]) Comment on above: Result Comment: QuantiFERON-TB Gold [...] test. Performed By: #### A DIFF, GFR, NANO, W, BMP, CBC #### [address] [address] QFT Mitogen Value >10.00 Normal [facility] ([place]) Comment on above: Performed By: #### A DIFF, GFR, NANO, W, BMP, CBC #### [address] [address] QFT Nil Value 0.00 IU/mL Normal [facility]) Comment on above: Performed By: #### A DIFF, GFR, NANO, W, BMP, CBC #### [address] [address] QFT TB1 Ag Value 0.00 IU/mL Normal [facility] ([place] Comment on above: Performed By: #### A DIFF, GFR, NANO, W, BMP, CBC #### [address] [address] QFT TB2 Ag Value 0.01 IU/mL Normal [facility] ([place] Comment on above: Performed By: #### A DIFF, GFR, NANO, MDW, BMP, CBC #### [address] [address] QFT-TB [employer] Negative Normal Negative [facility] ([place]) Comment on above: Result Comment: No r [...] interferon gamma. Chemiluminescence immunoassay methodology Performed At: [employer] [id number] Kenia Nicholson PhD Ph:[phone] Performed By: #### A DIFF, GFR, ANEU, MDW, BMP, CBC #### [address] [address] .Auto Diffon 12-17-2023 Basophil, Absolute 0.1 10 3/mcL Normal 0.0-0.2 [facility] ([place]) Comment on above: Performed By: #### A DIFF, GFR, ANEU, MDW, BMP, CBC #### [address] [address] Basophils/100 WBC (Bld) 0.9 % Normal 0.0-2.5 [facility] ([place]) Comment on above: Performed By: #### A DIFF, GFR, ANEU, MDW, BMP, CBC #### [address] [address] Eosinophil, Absolute 0.7 10 3/mcL High 0.0-0.4 [facility] ([place]) Comment on above: Performed By: #### A DIFF, GFR, ANEU, MDW, BMP, CBC #### [address] [address] Eosinophils/100 WBC (Bld) 7.9 % High 0.0-7.0 [facility] ([place]) Comment on above: Performed By: #### A DIFF, GFR, ANEU, MDW, BMP, CBC #### [address] [address] Lymphocyte, Absolute 2.0 10 3/mcL Normal 0.8-3.9 [facility] ([place]) Comment on above: Performed By: #### A DIFF, GFR, ANEU, MDW, BMP, CBC #### [address] [address] Lymphocytes/100 WBC (Bld) 24.3 % Normal 10.0-50.0 [facility] ([place]) Comment on above: Performed By: #### A DIFF, GFR, ANEU, MDW, BMP, CBC #### [address] [address] Monocyte, Absolute 0.6 10 3/mcL Normal 0.2-1.0 [facility] ([place] Comment on above: Performed By: #### A DIFF, GFR, ANEU, MDW, BMP, CBC #### [address] [address] Monocytes/100 WBC (Bld) 7.5 % Normal 1.7-13.0 [facility] ([place] Comment on above: Performed By: #### A DIFF, GFR, ANEU, MDW, BMP, CBC #### [address] [address] Neutrophils/100 WBC (Bld) 59.4 % Normal 37.0-80.0 [facility] ([place] Comment on above: Performed By: #### A DIFF, GFR, ANEU, MDW, BMP, CBC #### [address] [address] .GFRon 12-17-2023 GFR Non- 102 ml/min/1.73sqm Normal [facility] ([place] Comment on above: Result Comment: GFR Population [...] DIFF, GFR, ANEU, MDW, BMP, CBC #### [address] [address] GFR 123 ml/min/1.73sqm Normal [facility] ([place] Comment on above: Result Comment: GFR Population [...] DIFF, GFR, ANEU, MDW, BMP, CBC #### [address] [address] .MDWon 12-17-2023 Monocyte Distribution Width 18.10 Normal 0.00-20.00 [facility] ([place] Comment on above: Result Comment: For ED adult patients suspected of sepsis, MDW<=20.0 does not rule out sepsis or risk of sepsis Performed By: #### A DIFF, GFR, ANEU, MDW, BMP, CBC #### [address] [address] .NEUABSon 12-17-2023 Neutrophil, Absolute 5.0 10 3/mcL Normal 2.9-6.2 [facility] ([place]) Comment on above: Performed By: #### A DIFF, GFR, ANEU, MDW, BMP, CBC #### [address] [address] BMPon 12-17-2023 BUN/Creatinine Ratio 18 ratio Normal 7-27 [facility] ([place]) Comment on above: Performed By: #### A DIFF, GFR, ANEU, MDW, BMP, CBC #### [address] [address] Calcium [Mass/Vol] 9.7 mg/dL Normal 8.4-10.2 [facility] ([place]) Comment on above: Performed By: #### A DIFF, GFR, ANEU, MDW, BMP, CBC #### [address] [address] Chloride [Moles/Vol] 100 mmol/L Normal 98-107 [facility] ([place]) Comment on above: Performed By: #### A DIFF, GFR, ANEU, MDW, BMP, CBC #### [address] [address] CO2 [Moles/Vol] 28 mmol/L Normal 22-29 [facility] ([place]) Comment on above: Performed By: #### A DIFF, GFR, ANEU, MDW, BMP, CBC #### [address] [address] Creatinine [Mass/Vol] 0.84 mg/dL Normal 0.70-1.30 [facility] ([place]) Comment on above: Performed By: #### A DIFF, GFR, ANEU, MDW, BMP, CBC #### [address] [address] Electrolyte Balance 12.0 mEq/L Normal 4.0-15.0 [facility] ([place]) Comment on above: Performed By: #### A DIFF, GFR, ANEU, MDW, BMP, CBC #### [address] [address] Glucose [Mass/Vol] 167 mg/dL High 70-105 [facility] ([place]) Comment on above: Performed By: #### A DIFF, GFR, ANEU, MDW, BMP, CBC #### [address] [address] Potassium [Moles/Vol] 4.5 mmol/L Normal 3.5-5.1 [facility] ([place]) Comment on above: Performed By: #### A DIFF, GFR, ANEU, MDW, BMP, CBC #### [address] [address] Sodium [Moles/Vol] 140 mmol/L Normal 136-145 [facility] ([place]) Comment on above: Performed By: #### A DIFF, GFR, ANEU, MDW, BMP, CBC #### [place] [address] Urea nitrogen [Mass/Vol] 15 mg/dL Normal 7-18 [facility] ([place]) Comment on above: Performed By: #### A DIFF, GFR, ANEU, MDW, BMP, CBC #### [place] [address] CBCon 12-17-2023 Erythrocyte distribution width (RBC) [Ratio] 14.2 % Normal 11.5-14.5 [facility] ([place]) Comment on above: Performed By: #### A DIFF, GFR, ANEU, MDW, BMP, CBC #### [place] [address] Hematocrit (Bld) [Volume fraction] 45.4 % Normal 42.0-52.0 [facility] ([place]) Comment on above: Performed By: #### A DIFF, GFR, ANEU, MDW, BMP, CBC #### [address] [address] Hgb 16.0 G/dL Normal 14.0-18.0 [facility] ([place]) Comment on above: Performed By: #### A DIFF, GFR, ANEU, MDW, BMP, CBC #### [address] [address] MCH (RBC) [Entitic mass] 29.4 pg Normal 27.0-31.2 [facility] ([place]) Comment on above: Performed By: #### A DIFF, GFR, ANEU, MDW, BMP, CBC #### [place] [address] MCHC 35.2 G/dL Normal 31.8-35.4 [facility] ([place]) Comment on above: Performed By: #### A DIFF, GFR, ANEU, MDW, BMP, CBC #### [address] [address] MCV (RBC) [Entitic vol] 83.4 fL Normal 80.0-94.0 [facility] ([place]) Comment on above: Performed By: #### A DIFF, GFR, ANEU, MDW, BMP, CBC #### [address] [address] Platelet 328 10 3/mcL Normal 130-400 [facility] ([place]) Comment on above: Performed By: #### A DIFF, GFR, ANEU, MDW, BMP, CBC #### [address] [address] Platelet mean volume (Bld) [Entitic vol] 7.5 fL Normal 7.4-10.4 [facility] ([place]) Comment on above: Performed By: #### A DIFF, GFR, ANEU, MDW, BMP, CBC #### [address] [address] RBC 5.44 10 6/mcL Normal 4.04-6.13 [facility] ([place]) Comment on above: Performed By: #### A DIFF, GFR, ANEU, MDW, BMP, CBC #### [address] [address] WBC 8.4 10 3/mcL Normal 4.6-10.8 [facility] ([place]) Comment on above: Performed By: #### A DIFF, GFR, ANEU, MDW, BMP, CBC #### [address] [address] [address] ABDOMEN/PELVIS W/O CONTRA STon 12-17-2023 CT [...] 12/17/2023 6:03:21 AM Ordering Provider: DEMETRIO MCLAUGHLIN Normal [facility] ([place]) UAon 12-17-2023 Color (U) Yellow Normal [facility] ([place]) Comment on above: Performed By: #### A DIFF, GFR, ANEU, MDW, BMP, CBC #### [address] [address] Glucose (U) [Mass/Vol] mg/dL Abnormal Negative [facility] ([place]) Comment on above: Performed By: #### A DIFF, GFR, ANEU, MDW, BMP, CBC #### [address] [address] Ketones Ql (U) Negative Normal Negative [facility] ([place]) Comment on above: Performed By: #### A DIFF, GFR, ANEU, MDW, BMP, CBC #### [address] [address] UA Appear Clear Normal Clear [facility] ([place] Comment on above: Performed By: #### A DIFF, GFR, ANEU, MDW, BMP, CBC #### [address] [address] UA Blood Negative Normal Negative [facility] ([place] Comment on above: Performed By: #### A DIFF, GFR, ANEU, MDW, BMP, CBC #### [address] [address] UA Leuk Est Negative Normal Negative [facility] ([place] Comment on above: Performed By: #### A DIFF, GFR, ANEU, MDW, BMP, CBC #### [address] [address] UA Nitrite Negative Normal Negative [facility] ([place] Comment on above: Performed By: #### A DIFF, GFR, ANEU, MDW, BMP, CBC #### [address] [address] UA pH 7.0 Normal 5.0 - 8.0 [facility] ([place]) Comment on above: Performed By: #### A DIFF, GFR, ANEU, MDW, BMP, CBC #### [address] [address] UA Protein Negative Normal Negative [facility] ([place] Comment on above: Performed By: #### A DIFF, GFR, ANEU, MDW, BMP, CBC #### [address] [address] UA Spec Grav 1.015 Normal 1.015-1.025 [facility] ([place]) Comment on above: Performed By: #### A DIFF, GFR, ANEU, MDW, BMP, CBC #### [address] [address] UA Specimen Type Clean Catch Normal [facility] ([place]) Comment on above: Performed By: #### A DIFF, GFR, ANEU, MDW, BMP, CBC #### [address] [address] UA Urobilinogen 0.2 E.U./dL Normal 0.2-1.0 [facility]) Comment on above: Performed By: #### A DIFF, GFR, ANEU, W, BMP, CBC #### [address] [address] Urobilinogen (U) [Mass/Vol] Negative Normal Negative [facility]) Comment on above: Performed By: #### A DIFF, GFR, ANEU, MDW, BMP, CBC #### [place] [address] [place], [place] [address] XR SPINE LUMBAR AP/LATon XR SPINE LUMBAR [...] Sign Date: 12/01/2023 9:23:10 AM Ordering Provider: MEGAN Mo [facility] ([place]) XR HIP 3-4 VIEWS BILATERALon 11-27-2023 XR [...] Sign Date: 11/27/2023 12:28:42 PM Ordering Provider: MEGAN BARBOSA [facility] ([place]) .GFRon 11-26-2023 GFR 122 ml/min/1.73sqm [facility] ([place]) Comment on above: Result Comment: GFR Population [...] DIFF, GFR, YAO MCGILL, BMP, CBC #### Dwayne Macias [address] [place] [address] GFR Non- 100 ml/min/1.73sqm [facility] ([place]) Comment on above: Result Comment: GFR Population [...] DIFF, GFR, NANO, YAO, BMP, CBC #### [address] [address] BMPon 11-26-2023 BUN/Creatinine Ratio 11 ratio Normal 7-27 [facility] ([place]) Comment on above: Performed By: #### A DIFF, GFR, ANEU, MDW, BMP, CBC #### [address] [address] Calcium [Mass/Vol] 9.9 mg/dL Normal 8.4-10.2 [facility] ([place]) Comment on above: Performed By: #### A DIFF, GFR, ANEU, MDW, BMP, CBC #### [address] [address] Chloride [Moles/Vol] 101 mmol/L Normal 98-107 [facility] ([place]) Comment on above: Performed By: #### A DIFF, GFR, ANEU, MDW, BMP, CBC #### [address] [address] CO2 [Moles/Vol] 28 mmol/L Normal 22-29 [facility] ([place]) Comment on above: Performed By: #### A DIFF, GFR, ANEU, MDW, BMP, CBC #### [address] [address] Creatinine [Mass/Vol] 0.85 mg/dL Normal 0.70-1.30 [facility] ([place]) Comment on above: Performed By: #### A DIFF, GFR, ANEU, MDW, BMP, CBC #### [address] [address] Electrolyte Balance 12.0 mEq/L Normal 4.0-15.0 [facility] ([place]) Comment on above: Performed By: #### A DIFF, GFR, ANEU, MDW, BMP, CBC #### [address] [address] Glucose [Mass/Vol] 224 mg/dL High 70-105 [facility] ([place]) Comment on above: Performed By: #### A DIFF, GFR, ANEU, MDW, BMP, CBC #### [address] [address] Potassium [Moles/Vol] 3.9 mmol/L Normal 3.5-5.1 [facility] ([place]) Comment on above: Performed By: #### A DIFF, GFR, ANEU, MDW, BMP, CBC #### [address] [address] Sodium [Moles/Vol] 141 mmol/L Normal 136-145 [facility] ([place]) Comment on above: Performed By: #### A DIFF, GFR, ANEU, MDW, BMP, CBC #### [address] [address] Urea nitrogen [Mass/Vol] 9 mg/dL Normal 7-18 [facility] ([place]) Comment on above: Performed By: #### A DIFF, GFR, ANEU, MDW, BMP, CBC #### [address] [address] LABORATORYOrdered By: SYSTEM SYSTEM on 11-26-2023 Calcium [...] Date: 10/07/2023 12:40:39 PM Ordering Provider:Fabian Conde [facility] ([place]) .GFRon 09-14-2023 GFR Non- 77 ml/min/1.73sqm Normal [facility] ([place]) Comment on above: Result Comment: GFR Population [...] DIFF, GFR, ANEU, MDW, BMP, CBC #### [place] [address] GFR 94 ml/min/1.73sqm Normal [facility] ([place]) Comment on above: Result Comment: GFR Population [...] DIFF, GFR, ANEU, MDW, BMP, CBC #### [place] [address] .MDWon 09-14-2023 Monocyte Distribution Width 19.61 Normal 0.00-20.00 [facility] ([place]) Comment on above: Result Comment: For ED adult patients suspected of sepsis, MDW<=20.0 does not rule out sepsis or risk of sepsis Performed By: #### A DIFF, GFR, ANEU, MDW, BMP, CBC #### [place] [address] .Manual Diffon 09-14-2023 Basophil %, Manual 0.0 % Normal 0.0-2.5 [facility] ([place]) Comment on above: Performed By: #### A DIFF, GFR, ANEU, MDW, BMP, CBC #### [place] [address] Basophil, Abs Manual 0.0 10 3/mcL Normal 0.0-0.2 [facility] ([place]) Comment on above: Performed By: #### A DIFF, GFR, ANEU, MDW, BMP, CBC #### [place] [address] Eosinophil %, Manual 20.0 % High 0.0-7.0 [facility] ([place]) Comment on above: Performed By: #### A DIFF, GFR, ANEU, MDW, BMP, CBC #### [place] [address] Eosinophil, Abs Manual 1.8 10 3/mcL High 0.0-0.4 [facility] ([place]) Comment on above: Performed By: #### A DIFF, GFR, ANEU, MDW, BMP, CBC #### [address] [address] Lymphocyte %, Manual 18.0 % Normal 10.0-50.0 [facility] ([place]) Comment on above: Performed By: #### A DIFF, GFR, ANEU, MDW, BMP, CBC #### [address] [address] Lymphocyte, Abs Manual 1.7 10 3/mcL Normal 0.8-3.9 [facility] ([place]) Comment on above: Performed By: #### A DIFF, GFR, ANEU, MDW, BMP, CBC #### [address] [address] Monocyte %, Manual 5.0 % Normal 1.7-13.0 [facility] ([place]) Comment on above: Performed By: #### A DIFF, GFR, ANEU, MDW, BMP, CBC #### [address] [address] Monocyte, Abs Manual 0.5 10 3/mcL Normal 0.2-1.0 [facility] ([place]) Comment on above: Performed By: #### A DIFF, GFR, ANEU, MDW, BMP, CBC #### [address] [address] Neutrophil %, Manual 57.0 % Normal 37.0-80.0 [facility] ([place]) Comment on above: Performed By: #### A DIFF, GFR, ANEU, MDW, BMP, CBC #### [address] [address] Neutrophil, Abs Manual 5.3 10 3/mcL Normal 2.9-6.2 [facility] ([place]) Comment on above: Performed By: #### A DIFF, GFR, ANEU, MDW, BMP, CBC #### [address] [address] Nucleated RBC 0.0 /100 WBC Normal [facility] ([place]) Comment on above: Performed By: #### A DIFF, GFR, ANEU, MDW, BMP, CBC #### [address] [address] .Morphon 09-14-2023 Large Platelets Few Normal [facility] ([place]) Comment on above: Performed By: #### A DIFF, GFR, ANEU, MDW, BMP, CBC #### [address] [address] Platelet Estimate Normal Normal [facility] ([place]) Comment on above: Performed By: #### A DIFF, GFR, ANEU, MDW, BMP, CBC #### [address] [address] BMPon 09-14-2023 BUN/Creatinine Ratio 14 ratio Normal 7-27 [facility] ([place]) Comment on above: Performed By: #### A DIFF, GFR, ANEU, MDW, BMP, CBC #### [address] [address] Calcium [Mass/Vol] 9.2 mg/dL Normal 8.4-10.2 [facility] ([place]) Comment on above: Performed By: #### A DIFF, GFR, ANEU, MDW, BMP, CBC #### [address] [address] Chloride [Moles/Vol] 103 mmol/L Normal 98-107 [facility] ([place]) Comment on above: Performed By: #### A DIFF, GFR, ANEU, MDW, BMP, CBC #### [address] [address] CO2 [Moles/Vol] 27 mmol/L Normal 22-29 [facility] ([place]) Comment on above: Performed By: #### A DIFF, GFR, ANEU, MDW, BMP, CBC #### [address] [address] Creatinine [Mass/Vol] 1.07 mg/dL Normal 0.70-1.30 [facility] ([place]) Comment on above: Performed By: #### A DIFF, GFR, ANEU, MDW, BMP, CBC #### [address] [address] Electrolyte Balance 10.0 mEq/L Normal 4.0-15.0 [facility] Comment on above: Performed By: #### A DIFF, GFR, ANEU, MDW, BMP, CBC #### [address] [address] Glucose [Mass/Vol] 86 mg/dL Normal 70-105 [facility] ([place]) Comment on above: Performed By: #### A DIFF, GFR, ANEU, MDW, BMP, CBC #### [address] [address] Potassium [Moles/Vol] 3.9 mmol/L Normal 3.5-5.1 [facility] ([place]) Comment on above: Performed By: #### A DIFF, GFR, ANEU, MDW, BMP, CBC #### [address] [address] Sodium [Moles/Vol] 140 mmol/L Normal 136-145 [facility] ([place]) Comment on above: Performed By: #### A DIFF, GFR, ANEU, MDW, BMP, CBC #### [address] [address] Urea nitrogen [Mass/Vol] 15 mg/dL Normal 7-18 [facility] ([place]) Comment on above: Performed By: #### A DIFF, GFR, ANEU, MDW, BMP, CBC #### [address] [address] CBCon 09-14-2023 Erythrocyte distribution width (RBC) [Ratio] 13.7 % Normal 11.5-14.5 [facility] ([place]) Comment on above: Performed By: #### A DIFF, GFR, ANEU, MDW, BMP, CBC #### [address] [address] Hematocrit (Bld) [Volume fraction] 42.5 % Normal 42.0-52.0 [facility] ([place]) Comment on above: Performed By: #### A DIFF, GFR, ANEU, MDW, BMP, CBC #### [address] [address] Hgb 14.6 G/dL Normal 14.0-18.0 [facility] ([place]) Comment on above: Performed By: #### A DIFF, GFR, ANEU, MDW, BMP, CBC #### [address] [address] MCH (RBC) [Entitic mass] 28.4 pg Normal 27.0-31.2 [facility] ([place]) Comment on above: Performed By: #### A DIFF, GFR, ANEU, MDW, BMP, CBC #### [address] [address] MCHC 34.4 G/dL Normal 31.8-35.4 [facility] ([place]) Comment on above: Performed By: #### A DIFF, GFR, ANEU, MDW, BMP, CBC #### [address] [address] MCV (RBC) [Entitic vol] 82.6 fL Normal 80.0-94.0 [facility] ([place]) Comment on above: Performed By: #### A DIFF, GFR, ANEU, MDW, BMP, CBC #### [address] [address] Platelet 277 10 3/mcL Normal 130-400 [facility] ([place]) Comment on above: Performed By: #### A DIFF, GFR, ANEU, MDW, BMP, CBC #### [address] [address] Platelet mean volume (Bld) [Entitic vol] 6.5 fL Low 7.4-10.4 [facility] ([place]) Comment on above: Performed By: #### A DIFF, GFR, ANEU, MDW, BMP, CBC #### [address] [address] RBC 5.15 10 6/mcL Normal 4.04-6.13 [facility] ([place] Comment on above: Performed By: #### A DIFF, GFR, ANEU, MDW, BMP, CBC #### [address] [address] WBC 9.3 10 3/mcL Normal 4.6-10.8 [facility] ([place]) Comment on above: Performed By: #### A DIFF, GFR, ANEU, MDW, BMP, CBC #### [place] [address] [place], [place] [address] CT ANGIOGRAPHY CHEST W/CONTR Sanjuana 09-14-2023 CT [...] 09/14/2023 5:20:28 PM Ordering Provider: PRASHANT Mo [facility] ([place]) DIMERon 09-14-2023 D-Dimer 403 ng/mL D-DU High 0-230 [facility]) Comment on above: Result Comment: Resu lts [...] (PE). Performed By: #### A DIFF, GFR, NANO, YAO, BMP, CBC #### [address] [address] PBNPon 09-14-2023 Natriuretic peptide B (Bld) [Mass/Vol] 13 pg/mL Normal 0-125 [facility] ([place]) Comment on above: Result Comment: NT-p roBNP results of less than 300 pg/mL effectively rules out acute congestive heart failure with 99% negative predictive value. 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 CLIA#: [id number] Performed By: #### A DIFF, GFR, ANEU, MDW, BMP, CBC #### [address] [address] LIPOAon 09-03-2023 Lipoprotein a [Mass/Vol] mg/dL Normal <30 [facility]) Comment on above: Result Comment: Perf ormed By: [facility] [employer] [address] [place] [address] Warehouse Supervisor 3Rd Shift: Anupam Bains III, M.D. CLIA#: [id number] Performed By: #### A DIFF, GFR, ANEU, MDW, BMP, CBC #### [address] [address] .Auto Diffon 09-02-2023 Basophil, Absolute 0.1 10 3/mcL Normal 0.0-0.2 [facility]) Comment on above: Performed By: #### A DIFF, GFR, ANEU, MDW, BMP, CBC #### [address] [address] Basophils/100 WBC (Bld) 1.2 % Normal 0.0-2.5 [facility] ([place]) Comment on above: Performed By: #### A DIFF, GFR, ANEU, MDW, BMP, CBC #### [address] [address] Eosinophil, Absolute 1.6 10 3/mcL High 0.0-0.4 [facility] ([place]) Comment on above: Performed By: #### A DIFF, GFR, ANEU, MDW, BMP, CBC #### [address] [address] Eosinophils/100 WBC (Bld) 18.0 % High 0.0-7.0 [facility] ([place]) Comment on above: Performed By: #### A DIFF, GFR, ANEU, MDW, BMP, CBC #### [address] [address] Lymphocyte, Absolute 1.5 10 3/mcL Normal 0.8-3.9 [facility] ([place]) Comment on above: Performed By: #### A DIFF, GFR, ANEU, MDW, BMP, CBC #### [address] [address] Lymphocytes/100 WBC (Bld) 17.6 % Normal 10.0-50.0 [facility] ([place]) Comment on above: Performed By: #### A DIFF, GFR, ANEU, MDW, BMP, CBC #### [address] [address] Monocyte, Absolute 0.7 10 3/mcL Normal 0.2-1.0 [facility] ([place]) Comment on above: Performed By: #### A DIFF, GFR, ANEU, MDW, BMP, CBC #### [address] [address] Monocytes/100 WBC (Bld) 8.3 % Normal 1.7-13.0 [facility] ([place]) Comment on above: Performed By: #### A DIFF, GFR, ANEU, MDW, BMP, CBC #### [address] [address] Neutrophils/100 WBC (Bld) 54.9 % Normal 37.0-80.0 [facility] ([place]) Comment on above: Performed By: #### A DIFF, GFR, ANEU, MDW, BMP, CBC #### [address] [address] .NEUABSon 09-02-2023 Neutrophil, Absolute 4.8 10 3/mcL Normal 2.9-6.2 [facility] ([place]) Comment on above: Performed By: #### A DIFF, GFR, ANEU, MDW, BMP, CBC #### [address] [address] CBCon 09-02-2023 Erythrocyte distribution width (RBC) [Ratio] 13.4 % Normal 11.5-14.5 [facility] ([place]) Comment on above: Performed By: #### A DIFF, GFR, ANEU, MDW, BMP, CBC #### [place] [address] Hematocrit (Bld) [Volume fraction] 42.5 % Normal 42.0-52.0 [facility] ([place]) Comment on above: Performed By: #### A DIFF, GFR, ANEU, MDW, BMP, CBC #### [address] [address] Hgb 14.4 G/dL Normal 14.0-18.0 [facility] ([place]) Comment on above: Performed By: #### A DIFF, GFR, ANEU, MDW, BMP, CBC #### [address] [address] MCH (RBC) [Entitic mass] 28.4 pg Normal 27.0-31.2 [facility] ([place]) Comment on above: Performed By: #### A DIFF, GFR, ANEU, MDW, BMP, CBC #### [address] [address] MCHC 34.0 G/dL Normal 31.8-35.4 [facility] ([place]) Comment on above: Performed By: #### A DIFF, GFR, ANEU, MDW, BMP, CBC #### [address] [address] MCV (RBC) [Entitic vol] 83.3 fL Normal 80.0-94.0 [facility] ([place]) Comment on above: Performed By: #### A DIFF, GFR, ANEU, MDW, BMP, CBC #### [address] [address] Platelet 241 10 3/mcL Normal 130-400 [facility] ([place] Comment on above: Performed By: #### A DIFF, GFR, ANEU, MDW, BMP, CBC #### [address] [address] Platelet mean volume (Bld) [Entitic vol] 6.9 fL Low 7.4-10.4 [facility] ([place]) Comment on above: Performed By: #### A DIFF, GFR, ANEU, MDW, BMP, CBC #### [address] [address] RBC 5.09 10 6/mcL Normal 4.04-6.13 [facility] ([place] Comment on above: Performed By: #### A DIFF, GFR, ANEU, MDW, BMP, CBC #### [address] [address] WBC 8.7 10 3/mcL Normal 4.6-10.8 [facility] ([place]) Comment on above: Performed By: #### A DIFF, GFR, ANEU, MDW, BMP, CBC #### [address] [address] [address] ANGIOGRAPHY CHEST W/CONTR Sanjuana 09-02-2023 CT [...] 09/02/2023 9:59:01 AM Ordering Provider: FABIAN Mo [facility] ([place]) LABORATORYOrdered By: SYSTEM SYSTEM on 09-02-2023 Basophil, [...] SS XR Hand - left 3 Viewson 1. Mild left middle finger edema. 2. No acute osseous findings. Report Dictated on Electronically Signed By: Marc Mcdaniel MD Electronically Signed Date/Time: 08/27/2023 8:37 PM T [facility] 1985 [id number] Exam Date/Time: 08/27/2023 20:23 Procedure: XR HAND [...] normal. There is no radiopaque foreign body. [facility] Marc Mcdaniel MD - 08/27/2023 [facility] Name[facility] [place] 1985 [id number] Exam Date/Time: 08/27/2023 20:23 Procedure: XR HAND [...] findings. Report Dictated on Electronically Signed By: Macr Mcdaniel MD Electronically Signed Date/Time: 08/27/2023 8:37 PM EDT [facility] Radiology Study observation (narrative) [facility] [employer] XR Hand - left 3 ViewsOrdere d By: Marc Mcdaniel on 08-27-2023 [facility] [employer] Work Phone: .Auto Diffon 08-13-2023 Basophil, Absolute 0.1 10 3/mcL Normal 0.0-0.2 [facility] ([place] Comment on above: Performed By: #### A DIFF, GFR, ANEU, MDW, BMP, CBC #### [address] [address] Basophils/100 WBC (Bld) 0.7 % Normal 0.0-2.5 [facility] ([place]) Comment on above: Performed By: #### A DIFF, GFR, ANEU, MDW, BMP, CBC #### [address] [address] Eosinophil, Absolute 0.4 10 3/mcL Normal 0.0-0.4 [facility] ([place]) Comment on above: Performed By: #### A DIFF, GFR, ANEU, MDW, BMP, CBC #### [address] [address] Eosinophils/100 WBC (Bld) 4.7 % Normal 0.0-7.0 [facility] ([place] Comment on above: Performed By: #### A DIFF, GFR, ANEU, MDW, BMP, CBC #### [address] [address] Lymphocyte, Absolute 1.4 10 3/mcL Normal 0.8-3.9 [facility] ([place] Comment on above: Performed By: #### A DIFF, GFR, ANEU, MDW, BMP, CBC #### [address] [address] Lymphocytes/100 WBC (Bld) 17.3 % Normal 10.0-50.0 [facility] ([place] Comment on above: Performed By: #### A DIFF, GFR, ANEU, MDW, BMP, CBC #### [address] [address] Monocyte, Absolute 0.7 10 3/mcL Normal 0.2-1.0 [facility] ([place] Comment on above: Performed By: #### A DIFF, GFR, ANEU, MDW, BMP, CBC #### [address] [address] Monocytes/100 WBC (Bld) 9.1 % Normal 1.7-13.0 [facility] ([place] Comment on above: Performed By: #### A DIFF, GFR, ANEU, MDW, BMP, CBC #### [address] [address] Neutrophils/100 WBC (Bld) 68.2 % Normal 37.0-80.0 [facility] ([place]) Comment on above: Performed By: #### A DIFF, GFR, ANEU, MDW, BMP, CBC #### [address] [address] .GFRon 08-13-2023 GFR 87 ml/min/1.73sqm Normal [facility] ([place]) Comment on above: Result Comment: GFR Population [...] Performed By: #### A DIFF, GFR, ANEU, YAO, BMP, CBC #### [address] [address] GFR Non- 72 ml/min/1.73sqm Normal [facility] ([place]) Comment on above: Result Comment: GFR Population [...] Performed By: #### A DIFF, GFR, ANEU, AYO, BMP, CBC #### [address] [address] .NEUABSon 08-13-2023 Neutrophil, Absolute 5.4 10 3/mcL Normal 2.9-6.2 [facility] ([place]) Comment on above: Performed By: #### A DIFF, GFR, ANEU, MDW, BMP, CBC #### [address] [address] CBCon 08-13-2023 Erythrocyte distribution width (RBC) [Ratio] 13.5 % Normal 11.5-14.5 [facility] ([place]) Comment on above: Performed By: #### A DIFF, GFR, ANEU, MDW, BMP, CBC #### [place] [id number] Hematocrit (Bld) [Volume fraction] 43.5 % Normal 42.0-52.0 [facility] ([place]) Comment on above: Performed By: #### A DIFF, GFR, ANEU, MDW, BMP, CBC #### [place] [id number] Hgb 14.9 G/dL Normal 14.0-18.0 [facility] ([place]) Comment on above: Performed By: #### A DIFF, GFR, ANEU, MDW, BMP, CBC #### [address] [address] MCH (RBC) [Entitic mass] 28.6 pg Normal 27.0-31.2 [facility] ([place] Comment on above: Performed By: #### A DIFF, GFR, ANEU, MDW, BMP, CBC #### [address] [address] MCHC 34.3 G/dL Normal 31.8-35.4 [facility] ([place] Comment on above: Performed By: #### A DIFF, GFR, ANEU, MDW, BMP, CBC #### [address] [address] MCV (RBC) [Entitic vol] 83.3 fL Normal 80.0-94.0 [facility] ([place] Comment on above: Performed By: #### A DIFF, GFR, ANEU, MDW, BMP, CBC #### [address] [address] Platelet 260 10 3/mcL Normal 130-400 [facility] ([place] Comment on above: Performed By: #### A DIFF, GFR, ANEU, MDW, BMP, CBC #### [address] [address] Platelet mean volume (Bld) [Entitic vol] 7.0 fL Low 7.4-10.4 [facility] ([place] Comment on above: Performed By: #### A DIFF, GFR, ANEU, MDW, BMP, CBC #### [address] [address] RBC 5.22 10 6/mcL Normal 4.04-6.13 [facility] ([place] Comment on above: Performed By: #### A DIFF, GFR, ANEU, MDW, BMP, CBC #### [address] [address] WBC 8.0 10 3/mcL Normal 4.6-10.8 [facility] ([place] Comment on above: Performed By: #### A DIFF, GFR, ANEU, MDW, BMP, CBC #### [address] [address] CMPon 08-13-2023 Albumin Level 4.4 G/dL Normal 3.5-5.0 [facility] ([place] Comment on above: Performed By: #### A DIFF, GFR, ANEU, MDW, BMP, CBC #### [address] [address] Albumin/Globulin [Mass ratio] 1.3 {ratio} Normal 1.1-2.5 [facility] ([place] Comment on above: Performed By: #### A DIFF, GFR, ANEU, MDW, BMP, CBC #### [address] [address] ALP [Catalytic activity/Vol] 69 U/L Normal 40-135 [facility] ([place] Comment on above: Performed By: #### A DIFF, GFR, ANEU, MDW, BMP, CBC #### [address] [address] ALT [Catalytic activity/Vol] 54 U/L Normal 16-63 [facility] ([place] Comment on above: Performed By: #### A DIFF, GFR, ANEU, MDW, BMP, CBC #### [address] [address] AST [Catalytic activity/Vol] 33 U/L Normal 10-40 [facility] ([place] Comment on above: Performed By: #### A DIFF, GFR, ANEU, MDW, BMP, CBC #### [address] [address] Bili Total 0.6 mg/dL Normal 0.2-1.0 [facility] ([place] Comment on above: Result Comment: Use of this assay is not recommended for patients undergoing treatment with eltrombopag due to the potential for falsely elevated results. Performed By: #### A DIFF, GFR, ANEU, MDW, BMP, CBC #### [address] [address] BUN/Creatinine Ratio 11 ratio Normal 7-27 [facility] ([place]) Comment on above: Performed By: #### A DIFF, GFR, ANEU, MDW, BMP, CBC #### [address] [address] Calcium [Mass/Vol] 9.3 mg/dL Normal 8.4-10.2 [facility] ([place] Comment on above: Performed By: #### A DIFF, GFR, ANEU, MDW, BMP, CBC #### [address] [address] Chloride [Moles/Vol] 102 mmol/L Normal 98-107 [facility] ([place] Comment on above: Performed By: #### A DIFF, GFR, ANEU, MDW, BMP, CBC #### [address] [address] CO2 [Moles/Vol] 28 mmol/L Normal 22-29 [facility] ([place] Comment on above: Performed By: #### A DIFF, GFR, ANEU, MDW, BMP, CBC #### [address] [address] Creatinine [Mass/Vol] 1.14 mg/dL Normal 0.70-1.30 [facility] ([place]) Comment on above: Performed By: #### A DIFF, GFR, ANEU, MDW, BMP, CBC #### [address] [address] Electrolyte Balance 12.0 mEq/L Normal 4.0-15.0 [facility] ([place]) Comment on above: Performed By: #### A DIFF, GFR, ANEU, MDW, BMP, CBC #### [address] [address] Globulin 3.3 G/dL Normal [facility] ([place] Comment on above: Performed By: #### A DIFF, GFR, ANEU, MDW, BMP, CBC #### [address] [address] Glucose [Mass/Vol] 136 mg/dL High 70-105 [facility] ([place] Comment on above: Performed By: #### A DIFF, GFR, ANEU, MDW, BMP, CBC #### [address] [address] Potassium [Moles/Vol] 4.6 mmol/L Normal 3.5-5.1 [facility] ([place]) Comment on above: Performed By: #### A DIFF, GFR, ANEU, MDW, BMP, CBC #### [address] [address] Sodium [Moles/Vol] 142 mmol/L Normal 136-145 [facility] ([place] Comment on above: Performed By: #### A DIFF, GFR, ANEU, MDW, BMP, CBC #### [address] [address] Total Protein 7.7 G/dL Normal 6.4-8.2 [facility] ([place] Comment on above: Performed By: #### A DIFF, GFR, ANEU, MDW, BMP, CBC #### [address] [address] Urea nitrogen [Mass/Vol] 13 mg/dL Normal 7-18 [facility] ([place] Comment on above: Performed By: #### A DIFF, GFR, ANEU, MDW, BMP, CBC #### [place] [id number] [place], [place] [address] LABORATORYOrdered By: SYSTEM SYSTEM on 08-13-2023 Albumin [...] 08-13-2023 Cholesterol [Mass/Vol] 143 mg/dL Normal 0-200 [facility] ([place] Comment on above: Result Comment: Chol esterol Reference Interval: Less than 200 Desirable 200-239 Borderline high risk 240 and above High risk Performed By: #### A DIFF, GFR, YAO MCGILL, BMP, CBC #### [address] [address] Cholesterol in HDL [Mass/Vol] 33 mg/dL Low 40-60 [facility] ([place] Comment on above: Performed By: #### A DIFF, GFR, YAO MCGILL, BMP, CBC #### [address] [address] Cholesterol in LDL [Mass/Vol] 83 mg/dL Normal 0-130 [facility] ([place] Comment on above: Performed By: #### A DIFF, GFR, YAO MCGILL, BMP, CBC #### [address] [address] Triglyceride [Mass/Vol] 134 mg/dL Normal 0-150 [facility] ([place] Comment on above: Result Comment: Trig lyceride Reference Interval: Less than 150 Normal 150-199 Borderline high risk 200-499 High risk 500 or higher Very high risk Performed By: #### A DIFF, GFR, MD NANOW, BMP, CBC #### [address] [address] MALBRon 08-13-2023 U Creatinine 113.5 mg/dL Normal 39.0-259.0 [facility] ([place] Comment on above: Performed By: #### A DIFF, GFR, NANO, YAO, BMP, CBC #### [place] [address] [place], [place] [address] U Microalb 1426 mcg/dL Normal [facility] ([place] Comment on above: Performed By: #### A DIFF, GFR, NANO, W, BMP, CBC #### [place] [address] [place], [place] [address] U Ratio Alb/Cre 13 mcg/mg Normal 0-30 [facility] ([place] Comment on above: Performed By: #### A DIFF, GFR, YAO MCGILL, BMP, CBC #### [place] [id number] [place], [place] [address] LABORATORYOrdered By: SYSTEM SYSTEM on 05-27-2023 Calcium [...] on 05-10-2023 Glucose [Mass/Vol] 165 mg/dL 74-106 [facility] Comment on above: MANAGEMENT OF PATIEN T CARE PER NURSING PROTOCOL Glucose Glucometer (BldC) [M ass/Vol]Ordered By: Dr. Aquino on 01-11-2023 Glucose [Mass/Vol] 151 mg/dL 74-106 [facility] Comment on above: MANAGEMENT OF PATIEN [...] 0.0 - 0.2 10*3/uL [facility] Work Phone: Absolute Neut # 3.1 10*3/uL 1.8 - 7.0 10*3/uL [facility] Work Phone: [phone] Basophils/100 WBC (Bld) 0.4 % 0.0 - 2.0 % [facility] Work Phone: Eosinophils (Bld) [#/Vol] 0.2 10*3/uL 0.0 - 0.5 10*3/uL [facility] Work Phone: 22 Eosinophils/100 WBC (Bld) 3.3 % 1.0 - 6.0 % [facility] Work Phone: Granulocytes/100 WBC (Bld) 67.9 % 40.0 - 80.0 % [facility] Work Phone: Hematocrit (Bld) [Volume fraction] 46.4 % 40.0 - 52.0 % [facility] Work Phone: Hemoglobin (Bld) [Mass/Vol] 17.1 g/dL 13.0 - 18.0 g/dL [facility] Work Phone: Interpretation and review of laboratory results Abnormal [employer] Work Phone: Lymphocytes (Bld) [#/Vol] 1.0 10*3/uL 1.0 - 4.3 10*3/uL [facility] Work Phone: Lymphocytes/100 WBC (Bld) 22.4 % 20.0 - 40.0 % [facility] Work Phone: MCH (RBC) [Entitic mass] 30.0 pg 26.0 - 34.0 pg [facility] Work Phone: MCHC (RBC) [Mass/Vol] 36.9 % High 32.0 - 36.0 % [facility] Work Phone: MCV (RBC) [Entitic vol] 81.4 fL 80.0 - 98.0 fL [facility] Work Phone: Monocytes (Bld) [#/Vol] 0.3 10*3/uL 0.0 - 0.8 10*3/uL [facility] Work Phone: 22 Monocytes/100 WBC (Bld) 5.8 % 2.0 - 10.0 % [employer] Work Phone: [phone] Platelet distribution width (Bld) [Ratio] 12.7 % 11.5 - 14.5 % [facility] Work Phone: [phone] Platelet mean volume (Bld) [Entitic vol] 8.8 fL 7.4 - 12.4 fL [employer] Work Phone: [phone] Comment on above: MPV is a calculated measurement using platelet volume ratio. Platelets (Bld) [#/Vol] 231 10*3/uL 140 - 440 10*3/uL [facility] Work Phone: 1 RBC (Bld) [#/Vol] 5.70 10*6/uL 4.40 - 5.9 0 10*6/uL [employer] Work Phone: 1 WBC (Bld) [#/Vol] 4.5 10*3/uL 3.6 - 10.7 10*3/uL [employer] Work Phone: [phone] Test Performed by [facility], [address] [place] [address] LAB [facility] Work Phone: [phone] Chest Portableon 05-07-20 22 CR Chest Portable Patient Name: LEONEL LAKE Diagnostic Radiology ACCESSION EXAM DATE/TIME PROCEDURE ORDERING PROVIDER [id number] 05/07/2022 20:35 EDT CR Chest Portable MD SHAH VIJAY CPT code 64036 Reason For Exam (CR Chest Portable) vomiting [...] Transcribed Date and Time: 05/07/2022 8:43 Normal [facility] Comp Metabolic Panelon 05-07 Calcium [Mass/Vol] 10.0 mg/dL Normal 8.4-10.4 [facility] Comment on above: Performed By: #### H EMDF, CMP3, LIPA4, TROPN #### [facility] [address] [place] [address] ALP [Catalytic activity/Vol] 72 U/L Normal 38-126 [facility] Comment on above: Performed By: #### H EMDF, CMP3, LIPA4, TROPN #### [facility] [address] [place] [address] ALT [Catalytic activity/Vol] 65 U/L High 0-49 [facility] Comment on above: Result Comment: The ALT test is performed by an updated assay method. Please note that the reference intervals have been changed and are now sex specific. Performed By: #### H EMDF, CMP3, LIPA4, TROPN #### [facility] [address] [place] [address] Anion gap [Moles/Vol] 12 mmol/L Normal 3-13 [facility] Comment on above: Performed By: #### H EMDF, CMP3, LIPA4, TROPN #### [facility] [address] [place] [address] AST [Catalytic activity/Vol] 50 U/L High 15-46 [facility] Comment on above: Performed By: #### H EMDF, CMP3, LIPA4, TROPN #### [facility] [address] [place] [address] Bilirubin [Mass/Vol] 0.8 mg/dL Normal 0.2-1.3 [facility] Comment on above: Performed By: #### H EMDF, CMP3, LIPA4, TROPN #### [facility] [address] [place] [address] CO2 [Moles/Vol] 20 mmol/L Low 22-30 [facility] Comment on above: Performed By: #### H EMDF, CMP3, LIPA4, TROPN #### [facility] [address] [place] [address] Creatinine [Mass/Vol] 0.77 mg/dL Normal 0.52-1.25 [facility] Comment on above: Performed By: #### H EMDF, CMP3, LIPA4, TROPN #### [facility] [address] [place] [address] eGFR OTHER > 90.0 Normal >60 [facility] Comment on above: Result Comment: KDIG [...] #### H EMDF, CMP3, LIPA4, TROPN #### [facility] [address] [place] [address] GFR/1.73 sq M.predicted among blacks MDRD (S/P/Bld) [Vol rate/Area] mL/min/{1.73_m2} Normal >60 [facility] Comment on above: Performed By: #### H EMDF, CMP3, LIPA4, TROPN #### [facility] [address] [place] [address] Glucose [Mass/Vol] 221 mg/dL High 70-100 [facility] Comment on above: Performed By: #### H EMDF, CMP3, LIPA4, TROPN #### [facility] [address] [place] [address] Protein [Mass/Vol] 7.9 g/dL Normal 6.3-8.2 [facility] Comment on above: Performed By: #### H EMDF, CMP3, LIPA4, TROPN #### [facility] [address] [place] [address] Urea nitrogen [Mass/Vol] 15 mg/dL Normal 7-17 [facility] Comment on above: Performed By: #### H EMDF, CMP3, LIPA4, TROPN #### [facility] [address] [place] [address] Albumin [Mass/Vol] 4.7 g/dL Normal 3.5-5.0 [facility] Comment on above: Performed By: #### H EMDF, CMP3, LIPA4, TROPN #### [facility] [address] [place] [address] Chloride [Moles/Vol] 106 mmol/L Normal 98-107 [facility] Comment on above: Performed By: #### H EMDF, CMP3, LIPA4, TROPN #### [facility] [address] [place] [address] Sodium [Moles/Vol] 139 mmol/L Normal 135-145 [facility] Comment on above: Performed By: #### H EMDF, CMP3, LIPA4, TROPN #### [facility] [address] [place] [address] Potassium [Moles/Vol] 3.7 mmol/L Normal 3.5-5.1 [facility] Work Phone: Comment on above: Performed By: #### H EMDF, CMP3, LIPA4, TROPN #### [facility] [address] [place] [address] Complete Urinalysison 2021 Appearance (U) Clear Normal Clear [facility] Comment on above: Result Comment: . Performed By: #### C UA2 #### [facility] [address] [place] [address] Bilirubin,Urine Negative Normal Negative [facility] Comment on above: Result Comment: . Performed By: #### C UA2 #### [facility] [address] [place] [address] Color (U) LIGHT YELLOW Normal Lt. Yellow [facility] Comment on above: Result Comment: . Performed By: #### C UA2 #### [facility] [address] [place] [address] Glucose Ql (U) > 1,000 Abnormal Normal (<70) [facility] Comment on above: Result Comment: . Performed By: #### C UA2 #### [facility] [address] [place] [address] Ketone,Urine Negative Normal Negative [facility] Comment on above: Result Comment: . Performed By: #### C UA2 #### [facility] [address] [place] [address] Leukocytes,Urine Negative Normal Negative [facility] Comment on above: Result Comment: . Performed By: #### C UA2 #### [facility] [address] [place] [address] Nitrites,Urine Negative Normal Negative [facility] Comment on above: Result Comment: . Performed By: #### C UA2 #### [facility] [address] [place] [address] Occult Blood,Urine Negative Normal Negative [facility] Comment on above: Result Comment: . Performed By: #### C UA2 #### [facility] [address] [place] [address] pH,Urine 7.5 Normal 5.0-8.0 [facility] Comment on above: Result Comment: . Performed By: #### C UA2 #### [facility] [address] [place] [address] [facility],Urine > 1.030 Abnormal 1.005 - 1.030 [facility] Comment on above: Result Comment: . Performed By: #### C UA2 #### [facility] [address] [place] [address] Total Protein,Urine Negative Normal Negative [facility] Comment on above: Result Comment: . Performed By: #### C UA2 #### [facility] [address] [place] [address] Urobilinogen,Urine Normal Normal Normal (0-1) [facility] [employer] Comment on above: Result Comment: . Performed By: #### C UA2 #### [facility] [employer] [address] [place] [address] Comprehensive Metabolic Pane [facility] 05-07-2022 Albumin [Mass/Vol] 4.7 g/dL 3.5 - 5.0 g/dL [facility] Work Phone: [phone] ALP (Bld) [Catalytic activity/Vol] 72 U/L 38 - 126 U/L [facility] Work Phone: [phone] ALT [Catalytic activity/Vol] 65 U/L High 0 - 49 U/L [facility] Work Phone: [phone] Comment on above: The ALT test is perf ormed by an updated assay method. Please note that the reference intervals have been changed and are now sex specific. Anion gap [Moles/Vol] 12 mmol/L 3 - 13 mmol/L [facility] Work Phone: [phone] [Catalytic activity/Vol] 50 U/L High 15 - 46 U/L [facility] Work Phone: [phone] Bilirubin [Mass/Vol] 0.8 mg/dL 0.2 - 1 .3 mg/dL [facility] Work Phone: [phone] Calcium [Mass/Vol] 10.0 mg/dL 8.4 - 10. 4 mg/dL [facility] Work Phone: [phone] Chloride [Moles/Vol] 106 mmol/L 98 - 10 7 mmol/L [facility] Work [phone] [Moles/Vol] 20 mmol/L Low 22 - 30 mmol/L [facility] Work Phone: [phone] Creatinine [Mass/Vol] 0.77 mg/dL 0.52 - 1.25 mg/dL [facility] Work Phone: [phone] EGFR IF NonAfrican Haitian >90.0 >60 mL/min [facility] Work Phone: [phone] Comment on above: KDIGO guidelines pro vide [...] fraction] 7.9 g/dL 6.3 - 8.2 g/dL [facility] Work Phone: GFR/1.73 sq M.predicted among blacks MDRD (S/P/Bld) [Vol rate/Area] mL/min/{1.73_m2} >60 mL/min [facility] Work Phone: Glucose [Mass/Vol] 221 mg/dL High 70 - 100 mg/dL [facility] Work Phone: Interpretation and review of laboratory results Abnormal [facility] Work Phone: Sodium [Moles/Vol] 139 mmol/L 135 - 145 mmol/L [facility] Work Phone: Urea nitrogen (BldV) [Mass/Vol] 15 mg/dL 7 - 17 mg/dL [facility] Work Phone: Hemogram w/ [employer]od[employer] 05-07 Abs Baso Cnt 0.0 10*3/uL Normal 0.0-0.2 [facility] Comment on above: Performed By: #### H EMDF, CMP3, LIPA4, TROPN #### [facility] [employer] [facility] [address] [place] [address] Abs Neutrophile Cnt 3.1 10*3/uL Normal 1.8-7.0 [facility] Comment on above: Performed By: #### H EMDF, CMP3, LIPA4, TROPN #### [facility] [employer] [facility] [address] [place] [address] Basophils/100 WBC (Bld) 0.4 % Normal 0.0-2.0 [facility] Comment on above: Performed By: #### H EMDF, CMP3, LIPA4, TROPN #### [facility] [address] [place] [address] Eosinophils (Bld) [#/Vol] 0.2 10*3/uL Normal 0.0-0.5 [facility] Comment on above: Performed By: #### H EMDF, CMP3, LIPA4, TROPN #### [facility] [address] [place] [address] Eosinophils/100 WBC (Bld) 3.3 % Normal 1.0-6.0 [facility] Comment on above: Performed By: #### H EMDF, CMP3, LIPA4, TROPN #### [facility] [address] [place] [address] Erythrocyte distribution width (RBC) [Ratio] 12.7 % Normal 11.5-14.5 [facility] Comment on above: Performed By: #### H EMDF, CMP3, LIPA4, TROPN #### [facility] [address] [place] [address] Granulocytes/100 WBC (Bld) 67.9 % Normal 40.0-80.0 [facility] Comment on above: Performed By: #### H EMDF, CMP3, LIPA4, TROPN #### [facility] [address] [place] [address] Hematocrit (Bld) [Volume fraction] 46.4 % Normal 40.0-52.0 [facility] Comment on above: Performed By: #### H EMDF, CMP3, LIPA4, TROPN #### [facility] [address] [place] [address] Hemoglobin (Bld) [Mass/Vol] 17.1 g/dL Normal 13.0-18.0 [facility] Comment on above: Performed By: #### H EMDF, CMP3, LIPA4, TROPN #### [facility] [address] [place] [address] Lymphocytes (Bld) [#/Vol] 1.0 10*3/uL Normal 1.0-4.3 [facility] Comment on above: Performed By: #### H EMDF, CMP3, LIPA4, TROPN #### [facility] [address] [place] [address] Lymphocytes/100 WBC (Bld) 22.4 % Normal 20.0-40.0 [facility] Comment on above: Performed By: #### H EMDF, CMP3, LIPA4, TROPN #### [facility] [address] [place] [address] MCH (RBC) [Entitic mass] 30.0 pg Normal 26.0-34.0 [facility] Comment on above: Performed By: #### H EMDF, CMP3, LIPA4, TROPN #### [facility] [address] [place] [address] MCHC 36.9 % High 32.0-36.0 [facility] Comment on above: Performed By: #### H EMDF, CMP3, LIPA4, TROPN #### [facility] [address] [place] [address] MCV (RBC) [Entitic vol] 81.4 fL Normal 80.0-98.0 [facility] Comment on above: Performed By: #### H EMDF, CMP3, LIPA4, TROPN #### [facility] [address] [place] [address] Monocytes (Bld) [#/Vol] 0.3 10*3/uL Normal 0.0-0.8 [facility] Comment on above: Performed By: #### H EMDF, CMP3, LIPA4, TROPN #### [facility] [address] [place] [address] Monocytes/100 WBC (Bld) 5.8 % Normal 2.0-10.0 [facility] Comment on above: Performed By: #### H EMDF, CMP3, LIPA4, TROPN #### [facility] [address] [place] [address] Platelet mean volume (Bld) [Entitic vol] 8.8 fL Normal 7.4-12.4 [facility] Comment on above: Result Comment: MPV is a calculated measurement using platelet volume ratio. Performed By: #### H EMDF, CMP3, LIPA4, TROPN #### [facility] [address] [place] [address] Platelets (Bld) [#/Vol] 231 10*3/uL Normal 140-440 [facility] Comment on above: Performed By: #### H EMDF, CMP3, LIPA4, TROPN #### [facility] [address] [place] [address] RBC (Bld) [#/Vol] 5.70 10*6/uL Normal 4.40-5.90 [facility] Comment on above: Performed By: #### H EMDF, CMP3, LIPA4, TROPN #### [facility] [address] [place] [address] WBC (Bld) [#/Vol] 4.5 10*3/uL Normal 3.6-10.7 [facility] Comment on above: Performed By: #### H EMDF, CMP3, LIPA4, TROPN #### [facility] [address] [place] [address] Lipaseon 05-07-2022 Lipase [Catalytic activity/Vol] 137 U/L Normal 23-300 [facility] Comment on above: Performed By: #### H EMDF, CMP3, LIPA4, TROPN #### [facility] [address] [place] [address] Lipase [Catalytic activity/Vol] 137 U/L 23 - 300 U/L [facility] Work Phone: No Panel Informationon 05-07 Test Performed by [facility], [address] , [place], [place] [id number] [place] [address] LAB [facility] Work Phone: Troponin Ion 05-07-2022 Troponin I.cardiac [Mass/Vol] ng/mL Normal 0.000-0.034 [facility] Comment on above: Result Comment: . Performed By: #### H EMDF, CMP3, LIPA4, TROPN #### [facility] [address] [place] [address] Troponin x1on 05-07-2022 Troponin I.cardiac [Mass/Vol] ng/mL 0.000 - 0.034 ng/mL [facility] Work Phone: [phone] Comment on above: . Test Performed by [facility] [employer] [facility], [address] , [address] LAB [facility] Work Phone: [phone] Urinalysison 05-07-2022 Appearance (U) Clear Clear NA [facility] Work Phone: 1 Comment on above: . Bilirubin Urine Negative Negative mg/dL [facility] Work Phone: 1 Comment on above: . Color (U) LIGHT YELLOW Lt. Yellow NA [facility] Work Phone: 1 Comment on above: . Glucose, Ur >1,000 Abnormal Normal (<70) mg/dL [facility] Work Phone: 1 Comment on above: . Interpretation and review of laboratory results Abnormal [facility] Work Phone: 1 Ketones Ql (U) Negative Negative mg/dL [facility] Work Phone: 1 Comment on above: . LEUKOCYTES, UA Negative Negative Amish/uL [facility] Work Phone: 1 Comment on above: . Nitrite, Urine Negative Negative NA [facility] Work Phone: 1 Comment on above: . Occult Blood,Urine Negative Negative mg/dL [facility] Work Phone: 1 Comment on above: . pH (U) 7.5 [pH] [facility] Work Phone: 1 Comment on above: . [facility], Urine >1.030 Abnormal [facility] Work Phone: [phone] Comment on above: . Total Protein, Urine Negative Negativ e mg/dL [facility] [facility] Work Phone: 1 Comment on above: . Urobilinogen, Urine Normal Normal ( 0-1) mg/dL [facility] Work Phone: [phone] Comment on above: . Test Performed by [employer], [address] , [address] [facility] Work Phone: XR CHEST PORTABLEon 05-07-20 Patient Name: LEONEL LAKE Diagnostic Radiology ACCESSION EXAM DATE/TIME PROCEDURE ORDERING PROVIDER [id number] 05/07/2022 20:35 EDT CR Chest Portable MD SHAH VIJAY CPT code 10768 Reason For Exam (CR Chest Portable) vomiting [...] AHMAD Transcribed Date and Time: 05/07/2022 8:43 [facility] Anika Pinto MD - 05/07/2022 Patient Name: LEONEL LAKE Diagnostic Radiology ACCESSION EXAM DATE/TIME PROCEDURE ORDERING PROVIDER [id number] 05/07/2022 20:35 EDT CR Chest Portable MD SHAH VIJAY CPT code 67198 Reason For Exam (CR Chest Portable) vomiting [...] AHMAD Transcribed Date and Time: 05/07/2022 8:43 [facility] Work Phone: Radiology Study observation (narrative) [facility] Work Phone: XR CHEST PORTABLEOrdered By: Anika Pinto on 05-07-2022 [facility] Work Phone: CR Chest PA/LATon 01-20-2022 CR Chest PA/LAT [facility]: [id number]iology ACCESSION EXAM DATE/TIME PROCEDURE ORDERING PROVIDER [id number] 01/20/2022 18:33 EST CR Chest PA and LAT MD JARRETT NISHIT CPT code 04218 Reason For Exam (CR Chest PA and [...] Transcribed Date and Time: 01/20/2022 6:44 Normal [facility] EKG 12 Leadon 01-20-2022 [facility] Test Date: 2022-01-20 Pat Name: LEONEL LAKE Department: 2BED Room: 06 Gender: M 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 : 1985 Requested By: JASON JARRETT Order Number: [id number] Reading MD: Jason Jarrett Measurements Intervals Navarro Rate: 82 P: 22 AL: 152 QRS: -31 QRSD: 88 T: 23 QT: 368 QTc: 430 Interpretive Statements SINUS RHYTHM LEFT AXIS DEVIATION EARLY PRECORDIAL R/S TRANSITION Compared to ECG 03/08/2021 15:55:07 EARLY PRECORDIAL R/S TRANSITION Electronically Signed On 01-20-2022 18:19:32 EST by Jason Jarrett [facility] Jason Jarrett MD - 01/20/2022 [facility] Test Date: 2022-01-20 Pat Name: LEONEL LAKE Department: 2BED Room: 06 Gender: M 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 : 1985 Requested By: JASON JARRETT Order Number: [id number] Reading MD: Jason Jarrett Measurements Intervals Navarro Rate: 82 P: 22 AL: 152 QRS: -31 QRSD: 88 T: 23 QT: 368 QTc: 430 Interpretive Statements SINUS RHYTHM LEFT AXIS DEVIATION EARLY PRECORDIAL R/S TRANSITION Compared to ECG 03/08/2021 15:55:07 EARLY PRECORDIAL R/S TRANSITION Electronically Signed On 01-20-2022 18:19:32 EST by Jason Jarrett [facility] Work Phone: [facility] Work Phone: XR CHEST (2 VW)on 01-20-2022 Patient Name: LEONEL LAKE Diagnostic Radiology ACCESSION EXAM DATE/TIME PROCEDURE ORDERING PROVIDER [id number] 01/20/2022 18:33 EST CR Chest PA & LAT MD JARRETT NISHIT CPT code 66264 Reason For Exam (CR Chest PA & [...] THOMAS Transcribed Date and Time: 01/20/2022 6:44 [facility] Warner French M D - 01/20/2022 Patient Name: LEONEL LAKE Diagnostic Radiology ACCESSION EXAM DATE/TIME PROCEDURE ORDERING PROVIDER [id number] 01/20/2022 18:33 EST CR Chest PA & LAT MD SHASHI, JASON CPT code 02644 Reason For Exam (CR Chest PA & [...] THOMAS Transcribed Date and Time: 01/20/2022 6:44 [facility] Work Phone: Radiology Study observation (narrative) [facility] [...] 09-11-2021 Glucose [Mass/Vol] 304 mg/dL High 70-100 [facility] Comment on above: Result Comment: Test performed by glucose meter. Results may be 10%-15% lower than serum/plasma values. (CLIA ID [id number]) Performed By: #### H EMDF, CMP3, LIPA4, TROPN #### [facility] [address] [place] [address] Glucose [Mass/Vol] 325 mg/dL High 70-100 [facility] Comment on above: Result Comment: Test performed by glucose meter. Results may be 10%-15% lower than serum/plasma values. (CLIA ID [id number]) Performed By: #### B GLU #### [facility] [address] [place] [address] Glucose [Mass/Vol] 167 mg/dL High 70-100 [facility] Comment on above: Result Comment: Test performed by glucose meter. Results may be 10%-15% lower than serum/plasma values. (CLIA ID [id number]) Performed By: #### B GLU #### [facility] [address] [place] [address] POCT GlucoseOrdered By: Edwardo in Jose on 09-11-2021 Glucose [Mass/Vol] 304 mg/dL High 70 - 100 mg/dL [facility] Work Phone: [phone] Comment on above: Test performed by gl ucose meter. Results may be 10%-15% lower than serum/plasma values. (CLIA ID [id number]) Interpretation and review of laboratory results Abnormal [facility] Work Phone: [phone] Test Performed by [facility], [address] [place], [place], [place] [address] [facility] Work Phone: [phone] [facility] Work Phone: [phone] Glucose [Mass/Vol] 325 mg/dL High 70 - 100 mg/dL [facility] Work Phone: [phone] Comment on above: Test performed by gl ucose meter. Results may be 10%-15% lower than serum/plasma values. (CLIA ID [id number]) Interpretation and review of laboratory results Abnormal [facility] Work Phone: [phone] Test Performed by [facility], [address] [place], [place] [address] [facility] Work Phone: 1 [facility] Work Phone: 1 Glucose [Mass/Vol] 167 mg/dL High 70 - 100 mg/dL [facility] Work Phone: 1 Comment on above: Test performed by gl ucose meter. Results may be 10%-15% lower than serum/plasma values. (CLIA ID [id number]) Interpretation and review of laboratory results Abnormal [facility] Work Phone: [phone] Test Performed by [facility], [address] [place] [address] [facility] Work Phone: [phone] [facility] Work Phone: [phone] Surgical Pathologyon 021 Surgical Pathology [id number] [facility] PATHOLOGY AND [facility]ORATORY MEDICINE [address] [place] [address] Fax - FINAL SURGICAL PATHOLOGY REPORT ___ NAME: LEONEL LAKE : 1985 35 Y Sohail LEON NO.: [id number] LOCATION: [facility] 05 PROCEDURE 09/11/2021 DATE: SURGEON: PHILIP [...] in thickness from 0.2 to 0.6 cm. [employer] sections from the neck, body and fundus are submitted in one cassette. BSC/KMS1 Disclaimer: The following statement applies to all immunohistochemistry, in situ hybridization, molecular studies, and immunofluorescence testing. The use of one or more reagents in the above tests is regulated as an analyte specific reagent (ASR). These tests were developed and their performance characteristics determined by the clinical laboratories of [facility] [employer] [facility]. They have not been cleared by [...] negativity on decalcified specimens. Case reviewed at [address] [place] [address]. DEPARTMENT OF PATHOLOGY AND LABORATORY MEDICINE [place], [place] [address] [email or web address] Normal [facility] Basic Metabolic Panelon 10- Calcium [Mass/Vol] 9.3 mg/dL Normal 8.4-10.4 [facility] Comment on above: Performed By: #### H EMDF, CMP3, LIPA4, TROPN #### [facility] [address] [place] [address] Glucose [Mass/Vol] 267 mg/dL High 70-100 [facility] Comment on above: Performed By: #### H EMDF, CMP3, LIPA4, TROPN #### [facility] [address] [place] [address] Urea nitrogen [Mass/Vol] 10 mg/dL Normal 7-17 [facility] Comment on above: Performed By: #### H EMDF, CMP3, LIPA4, TROPN #### [facility] [address] [place] [address] Anion gap [Moles/Vol] 7 mmol/L Normal 3-13 [facility] Comment on above: Performed By: #### H EMDF, CMP3, LIPA4, TROPN #### [facility] [address] [place] [address] CO2 [Moles/Vol] 24 mmol/L Normal 22-30 [facility] Comment on above: Performed By: #### H EMDF, CMP3, LIPA4, TROPN #### [facility] [address] [place] [address] Creatinine [Mass/Vol] 0.59 mg/dL Normal 0.52-1.25 [facility] Comment on above: Performed By: #### H EMDF, CMP3, LIPA4, TROPN #### [facility] [address] [place] [address] eGFR OTHER > 90.0 Normal >60 [facility] Comment on above: Result Comment: KDIG [...] #### H EMDF, CMP3, LIPA4, TROPN #### [facility] [address] [facility] [place] [address] GFR/1.73 sq M.predicted among blacks MDRD (S/P/Bld) [Vol rate/Area] mL/min/{1.73_m2} Normal >60 [facility] Comment on above: Performed By: #### H EMDF, CMP3, LIPA4, TROPN #### [facility] [address] [facility] [place] [address] Potassium [Moles/Vol] 3.8 mmol/L Normal 3.5-5.1 [facility] Comment on above: Performed By: #### H EMDF, CMP3, LIPA4, TROPN #### [facility] [address] [facility] [place] [address] Sodium [Moles/Vol] 134 mmol/L Low 135-145 [facility] Comment on above: Performed By: #### H EMDF, CMP3, LIPA4, TROPN #### [facility] [address] [address] [place] [address] Chloride [Moles/Vol] 103 mmol/L Normal 98-107 [facility] [employer] Comment on above: Performed By: #### H EMDF, CMP3, LIPA4, TROPN #### [facility] [employer] [address] [place] [address] Basic Metabolic PanelOrdered By: Rafael Ring on 09-02-2021 Anion gap [Moles/Vol] 7 mmol/L 3 - 13 mmol/L [facility] Work Phone: Calcium [Mass/Vol] 9.3 mg/dL 8.4 - 10. 4 mg/dL [facility] Work Phone: Chloride [Moles/Vol] 103 mmol/L 98 - 10 7 mmol/L [facility] Work Phone: CO2 [Moles/Vol] 24 mmol/L 22 - 30 mmol/L [facility] Work Phone: Creatinine [Mass/Vol] 0.59 mg/dL 0.52 - 1.25 mg/dL [facility] Work Phone: EGFR IF NonAfrican Haitian >90.0 >60 mL/min [facility] Work Phone: Comment on above: KDIGO guidelines [...] MDRD (S/P/Bld) [Vol rate/Area] mL/min/{1.73_m2} >60 mL/min [facility] Work Phone: Glucose [Mass/Vol] 267 mg/dL High 70 - 100 mg/dL [employer] Work Phone: 1) Potassium [Moles/Vol] 3.8 mmol/L 3.5 - 5.1 mmol/L [facility] Work Phone: 1) Sodium [Moles/Vol] 134 mmol/L Low 135 - 145 mmol/L [employer] Work Phone: 1) Urea nitrogen (BldV) [Mass/Vol] 10 mg/dL 7 - 17 mg/dL [employer] Work Phone: 1) Glucose,Bedsideon 09-02-2021 Glucose [Mass/Vol] 276 mg/dL High 70-100 [employer] Comment on above: Result Comment: Test performed by glucose meter. Results may be 10%-15% lower than serum/plasma values. (CLIA ID [id number]) Performed By: #### H EMDF, CMP3, LIPA4, TROPN #### [employer] [address] [place] [address] Hemogram (CBC) w/Auto DiffOr dered By: Rafael Ring on 09-02-2021 Absolute Baso # 0.0 10*3/uL 0.0 - 0.2 10*3/uL [employer] Work Phone: 1 Absolute Neut # 3.4 10*3/uL 1.8 - 7.0 10*3/uL [employer] Work Phone: [phone] Basophils/100 WBC (Bld) 0.9 % 0.0 - 2.0 % [employer] Work Phone: 1) Eosinophils (Bld) [#/Vol] 0.3 10*3/uL 0.0 - 0.5 10*3/uL [employer] Work Phone: [phone] Eosinophils/100 WBC (Bld) 5.3 % 1.0 - 6.0 % [employer] Work Phone: 1) Granulocytes/100 WBC (Bld) 62.0 % 40.0 - 80.0 % [employer] Work Phone: 1 Hematocrit (Bld) [Volume fraction] 41.6 % 40.0 - 52.0 % [facility] Work Phone: [phone] Hemoglobin.gastrointe stinal spec 1 Ql (Stl) 14.6 g/dL 13.0 - 18.0 g/dL [facility] Work Phone: 1 Interpretation and review of laboratory results Abnormal [employer] Work Phone: 1 Lymphocytes (Bld) [#/Vol] 1.4 10*3/uL 1.0 - 4.3 10*3/uL [employer] Work Phone: [phone] 22 Lymphocytes/100 WBC (Bld) 24.7 % 20.0 - 40.0 % [employer] Work Phone: 1 MCH (RBC) [Entitic mass] 30.0 pg 26.0 - 34.0 pg [employer] Work Phone: MCHC (RBC) [Mass/Vol] 35.2 % 32.0 - 36.0 % [employer] Work Phone: MCV (RBC) [Entitic vol] 85.2 fL 80.0 - 98.0 fL [employer] Work Phone: 1 Monocytes (Bld) [#/Vol] 0.4 10*3/uL 0.0 - 0.8 10*3/uL [employer] Work Phone: 1 Monocytes/100 WBC (Bld) 7.1 % 2.0 - 10.0 % [employer] Phone: 1 Platelet distribution width (Bld) [Ratio] 13.1 % 11.5 - 14.5 % [employer] Phone: Platelet mean volume (Bld) [Entitic vol] 7.1 fL Low 7.4 - 10.4 fL [facility] Work Phone: Platelets (Bld) [#/Vol] 238 10*3/uL 140 - 440 10*3/uL [employer] Work Phone: RBC (Bld) [#/Vol] 4.88 10*6/uL 4.40 - 5.9 0 10*6/uL [employer] Work Phone: WBC (Bld) [#/Vol] 5.5 10*3/uL 3.6 - 10.7 10*3/uL [facility] Work Phone: Test Performed by [facility], [address] [facility]. , [place], [place] [address] [place] [address] Work Phone: [facility] Work Phone: Hemogram w/ Autodiffon 09-02 Abs Baso Cnt 0.0 10*3/uL Normal 0.0-0.2 [facility] Comment on above: Performed By: #### H EMDF, CMP3, LIPA4, TROPN #### [facility] [address] [place] [address] Abs Neutrophile Cnt 3.4 10*3/uL Normal 1.8-7.0 [facility] Comment on above: Performed By: #### H EMDF, CMP3, LIPA4, TROPN #### [facility] [address] [place] [address] Basophils/100 WBC (Bld) 0.9 % Normal 0.0-2.0 [facility] Comment on above: Performed By: #### H EMDF, CMP3, LIPA4, TROPN #### [address] [place] [address] Eosinophils (Bld) [#/Vol] 0.3 10*3/uL Normal 0.0-0.5 [facility] Comment on above: Performed By: #### H EMDF, CMP3, LIPA4, TROPN #### [facility] [address] [place] [address] Eosinophils/100 WBC (Bld) 5.3 % Normal 1.0-6.0 [facility] Comment on above: Performed By: #### H EMDF, CMP3, LIPA4, TROPN #### [facility] [address] [facility] [place] [address] Erythrocyte distribution width (RBC) [Ratio] 13.1 % Normal 11.5-14.5 [facility] Comment on above: Performed By: #### H EMDF, CMP3, LIPA4, TROPN #### [facility] [address] [facility] [place] [address] Granulocytes/100 WBC (Bld) 62.0 % Normal 40.0-80.0 [facility] Comment on above: Performed By: #### H EMDF, CMP3, LIPA4, TROPN #### [facility] [address] [place] [address] Hematocrit (Bld) [Volume fraction] 41.6 % Normal 40.0-52.0 [facility] Comment on above: Performed By: #### H EMDF, CMP3, LIPA4, TROPN #### [facility] [address] [place] [address] Hemoglobin (Bld) [Mass/Vol] 14.6 g/dL Normal 13.0-18.0 [facility] Comment on above: Performed By: #### H EMDF, CMP3, LIPA4, TROPN #### [address] [place] [address] Lymphocytes (Bld) [#/Vol] 1.4 10*3/uL Normal 1.0-4.3 [facility] Comment on above: Performed By: #### H EMDF, CMP3, LIPA4, TROPN #### [address] [place] [address] Lymphocytes/100 WBC (Bld) 24.7 % Normal 20.0-40.0 [facility] Comment on above: Performed By: #### H EMDF, CMP3, LIPA4, TROPN #### [address] [place] [address] MCH (RBC) [Entitic mass] 30.0 pg Normal 26.0-34.0 [facility] Comment on above: Performed By: #### H EMDF, CMP3, LIPA4, TROPN #### [address] [place] [address] MCHC 35.2 % Normal 32.0-36.0 [facility] Comment on above: Performed By: #### H EMDF, CMP3, LIPA4, TROPN #### [address] [place] [address] MCV (RBC) [Entitic vol] 85.2 fL Normal 80.0-98.0 [facility] Comment on above: Performed By: #### H EMDF, CMP3, LIPA4, TROPN #### [facility] [address] [place] [address] Monocytes (Bld) [#/Vol] 0.4 10*3/uL Normal 0.0-0.8 [facility] Comment on above: Performed By: #### H EMDF, CMP3, LIPA4, TROPN #### [facility] [address] [place] [address] Monocytes/100 WBC (Bld) 7.1 % Normal 2.0-10.0 [facility] Comment on above: Performed By: #### H EMDF, CMP3, LIPA4, TROPN #### [facility] [address] [place] [address] Platelet mean volume (Bld) [Entitic vol] 7.1 fL Low 7.4-10.4 [facility] Comment on above: Performed By: #### H EMDF, CMP3, LIPA4, TROPN #### [facility] [address] [place] [address] Platelets (Bld) [#/Vol] 238 10*3/uL Normal 140-440 [facility] Comment on above: Performed By: #### H EMDF, CMP3, LIPA4, TROPN #### [facility] [address] [place] [address] RBC (Bld) [#/Vol] 4.88 10*6/uL Normal 4.40-5.90 [facility] Comment on above: Performed By: #### H EMDF, CMP3, LIPA4, TROPN #### [facility] [address] [place] [address] WBC (Bld) [#/Vol] 5.5 10*3/uL Normal 3.6-10.7 [facility] Comment on above: Performed By: #### H EMDF, CMP3, LIPA4, TROPN #### [facility] [address] [place] [address] Hepatic Functionon 1 ALP [Catalytic activity/Vol] 75 U/L Normal 38-126 [facility] Comment on above: Performed By: #### H EMDF, CMP3, LIPA4, TROPN #### [facility] [address] [place] [address] ALT [Catalytic activity/Vol] 66 U/L High 0-49 [facility] Comment on above: Result Comment: The ALT test is performed by an updated assay method. Please note that the reference intervals have been changed and are now sex specific. Performed By: #### H EMDF, CMP3, LIPA4, TROPN #### [facility] [address] [place] [address] AST [Catalytic activity/Vol] 48 U/L High 15-46 [facility] Comment on above: Performed By: #### H EMDF, CMP3, LIPA4, TROPN #### [facility] [address] [place] [address] Bilirubin [Mass/Vol] 0.5 mg/dL Normal 0.2-1.3 [facility] Comment on above: Performed By: #### H EMDF, CMP3, LIPA4, TROPN #### [facility] [address] [place] [address] Protein [Mass/Vol] 7.1 g/dL Normal 6.3-8.2 [facility] Comment on above: Performed By: #### H EMDF, CMP3, LIPA4, TROPN #### [facility] [address] [place] [address] Bilirubin.indirect [Mass/Vol] 0.0 mg/dL Normal 0.0-0.3 [facility] Comment on above: Performed By: #### H EMDF, CMP3, LIPA4, TROPN #### [facility] [address] [place] [address] Albumin [Mass/Vol] 4.2 g/dL Normal 3.5-5.0 [facility] Comment on above: Performed By: #### H EMDF, CMP3, LIPA4, TROPN #### [facility] [address] [place] [address] Hepatic Function PanelOrdere d By: Rafael Ring on 09-02-2021 Albumin [Mass/Vol] 4.2 g/dL 3.5 - 5.0 g/dL [facility] Work Phone: 1 ALP (Bld) [Catalytic activity/Vol] 75 U/L 38 - 126 U/L [facility] Work Phone: 1 ALT [Catalytic activity/Vol] 66 U/L High 0 - 49 U/L [facility] Work Phone: 1 Comment on above: The ALT test is perf ormed by an updated assay method. Please note that the reference intervals have been changed and are now sex specific. AST [Catalytic activity/Vol] 48 U/L High 15 - 46 U/L [facility] Work Phone: 1 Bilirubin [Mass/Vol] 0.5 mg/dL 0.2 - 1 .3 mg/dL [facility] Work Phone: Bilirubin.indirect [Mass/Vol] 0.0 mg/dL 0.0 - 0.3 mg/dL [facility] Work Phone: [phone] Free PSA/Total PSA [Mass fraction] 7.1 g/dL 6.3 - 8.2 g/dL [facility] Work Phone: [phone] Lipaseon 09-02-2021 Lipase [Catalytic activity/Vol] 88 U/L Normal 23-300 [facility] Comment on above: Performed By: #### H EMDF, CMP3, LIPA4, TROPN #### [facility] [address] [place] [address] LipaseOrdered By: Rafael roberts on 09-02-2021 Lipase [Catalytic activity/Vol] 88 U/L 23 - 300 U/L [facility] Work Phone: [phone] Panel InformationOrdered By: Rafael Ring on 09-02-2021 Interpretation and review of laboratory results Abnormal [facility] Work Phone: [phone] Test Performed by [facility], [address] , [place] [address] [facility] Work Phone: 1 [facility] Work Phone: [phone] POCT GLUCOSEOrdered By: Michelle Ring on 09-02-2021 [...] 10%-15% lower than serum/plasma values. (CLIA ID [id number]) Interpretation and review of laboratory results Abnormal [facility] Work Phone: [phone] Test Performed by [facility], [address] [place] [address] [address] [place] [address] [facility] Work Phone: 1 [facility] Work Phone: 1 POCT VenousOrdered By: Steven Ring on 09-02-2021 Base Excess, Earl -0.4 mmol/L -3.0 - 3.0 mmol/L [facility] Work Phone: 1 FIO2 Venous No data [facility] Work Phone: 1 HCO3 (Bld) [Moles/Vol] 25.4 mmol/L 23.0 - 27.0 mmol/L [facility] Work Phone: 1 Interpretation and review of laboratory results Abnormal [facility] Work Phone: 1 Oxygen saturation in Blood 87.2 % High 60.0 - 80.0 % [facility] Work Phone: 1 pCO2, Earl 44.8 mm[Hg] 40.0 - 55.0 mm[Hg] [facility] Work Phone: [phone] pH, Earl 7.362 [facility] Work Phone: 1 pO2, Earl 55.7 mm[Hg] High 30.0 - 50.0 mm[Hg] [facility] Work Phone: TC02 (Calc), Earl 26.8 mmol/L 24.0 - 28.0 mmol/L [facility] Work Phone: Comment on above: Performed by CLIA ID : [id number] [place], [place] Test Performed by [facility], [address] , [place], [place] [address] [place] [address] Work Phone: [facility] Work Phone: Venous Blood Gas Respiratory on 09-02-2021 FIO2 No data Normal [facility] Comment on above: Performed By: #### H EMDF, CMP3, LIPA4, TROPN #### [facility] [address] [place] [address] Base Excess -0.4 mmol/L Normal -3.0-3.0 [facility] Comment on above: Performed By: #### H EMDF, CMP3, LIPA4, TROPN #### [facility] [address] [place] [address] CO2 [Moles/Vol] 26.8 mmol/L Normal 24.0-28.0 [facility] Comment on above: Result Comment: Perf ormed by CLIA ID: [id number] [place], [place] Performed By: #### H EMDF, CMP3, LIPA4, TROPN #### [facility] [address] [place] [address] HCO3 (Bld) [Moles/Vol] 25.4 mmol/L Normal 23.0-27.0 [facility] Comment on above: Performed By: #### H EMDF, CMP3, LIPA4, TROPN #### [facility] [address] [place] [address] Oxygen (Bld) [Partial pressure] 55.7 mm[Hg] High 30.0-50.0 [facility] Comment on above: Performed By: #### H EMDF, CMP3, LIPA4, TROPN #### [facility] [address] [place] [address] Oxygen saturation in Blood 87.2 % High 60.0-80.0 [facility] Comment on above: Performed By: #### H EMDF, CMP3, LIPA4, TROPN #### [facility] [address] [place] [address] pCO2 44.8 mm[Hg] Normal 40.0-55.0 [facility] Comment on above: Performed By: #### H EMDF, CMP3, LIPA4, TROPN #### [facility] [address] [place] [address] pH 7.362 Normal 7.330-7.430 [facility] Comment on above: Performed By: #### H EMDF, CMP3, LIPA4, TROPN #### [facility] [address] [place] [address] Comp Metabolic Panelon 08-29 ALP [Catalytic activity/Vol] 82 U/L Normal 38-126 [facility] Comment on above: Performed By: #### H EMDF, LIPA4, CMP3 #### [facility] [address] [place] [address] ALT [Catalytic activity/Vol] 69 U/L High 0-49 [facility] Comment on above: Result Comment: The ALT test is performed by an updated assay method. Please note that the reference intervals have been changed and are now sex specific. Performed By: #### H EMDF, LIPA4, CMP3 #### [facility] [address] [place] [address] Anion gap [Moles/Vol] 10 mmol/L Normal 3-13 [facility] Comment on above: Performed By: #### H EMDF, LIPA4, CMP3 #### [facility] [address] [place] [address] AST [Catalytic activity/Vol] 63 U/L High 15-46 [facility] Comment on above: Performed By: #### H EMDF, LIPA4, CMP3 #### [facility] [address] [place] [address] Bilirubin [Mass/Vol] 0.5 mg/dL Normal 0.2-1.3 [facility] Comment on above: Performed By: #### H EMDF, LIPA4, CMP3 #### [facility] [address] [place] [address] Calcium [Mass/Vol] 9.5 mg/dL Normal 8.4-10.4 [facility] Comment on above: Performed By: #### H EMDF, LIPA4, CMP3 #### [facility] [address] [place] [address] CO2 [Moles/Vol] 21 mmol/L Low 22-30 [facility] Comment on above: Performed By: #### H EMDF, LIPA4, CMP3 #### [facility] [address] [place] [address] Glucose [Mass/Vol] 340 mg/dL High 70-100 [facility] Comment on above: Performed By: #### H EMDF, LIPA4, CMP3 #### [facility] [address] [place] [address] Protein [Mass/Vol] 7.5 g/dL Normal 6.3-8.2 [facility] Comment on above: Performed By: #### H EMDF, LIPA4, CMP3 #### [facility] [address] [place] [address] Urea nitrogen [Mass/Vol] 12 mg/dL Normal 7-17 [facility] Comment on above: Performed By: #### H EMDF, LIPA4, CMP3 #### [facility] [address] [place] [address] Creatinine [Mass/Vol] 0.70 mg/dL Normal 0.52-1.25 [facility] Comment on above: Performed By: #### H EMDF, LIPA4, CMP3 #### [facility] [address] [place] [address] eGFR OTHER > 90.0 Normal >60 [facility] Comment on above: Result Comment: KDIG [...] tubular creatinine secretion. Performed By: #### H EMDFlora LIPA4, CMP3 #### [facility] [address] [place] [address] GFR/1.73 sq M.predicted among blacks MDRD (S/P/Bld) [Vol rate/Area] mL/min/{1.73_m2} Normal >60 [facility] Comment on above: Performed By: #### H MYNOR LIPA4, CMP3 #### [facility] [address] [place] [address] Albumin [Mass/Vol] 4.4 g/dL Normal 3.5-5.0 [facility] Comment on above: Performed By: #### H MYNOR LIPA4, CMP3 #### [facility] [address] [place] [address] Potassium [Moles/Vol] 3.9 mmol/L Normal 3.5-5.1 [facility] Comment on above: Performed By: #### H EMDFlora LIPA4, CMP3 #### [facility] [address] [place] [address] Sodium [Moles/Vol] 133 mmol/L Low 135-145 [facility] Comment on above: Performed By: #### H EMDFlora LIPA4, CMP3 #### [facility] [address] [place] [address] Chloride [Moles/Vol] 101 mmol/L Normal 98-107 [facility] Comment on above: Performed By: #### H EMDF, LIPA4, CMP3 #### [facility] [address] [place] [address] Hemogram w/ Autodiffon 08-29 Abs Baso Cnt 0.1 10*3/uL Normal 0.0-0.2 [facility] Comment on above: Performed By: #### H EMDF, LIPA4, CMP3 #### [facility] [address] [place] [address] Abs Neutrophile Cnt 3.3 10*3/uL Normal 1.8-7.0 [facility] Comment on above: Performed By: #### H EMDF, LIPA4, CMP3 #### [facility] [address] [place] [address] Basophils/100 WBC (Bld) 0.9 % Normal 0.0-2.0 [facility] Comment on above: Performed By: #### H EMDF, LIPA4, CMP3 #### [facility] [address] [place] [address] Eosinophils (Bld) [#/Vol] 0.2 10*3/uL Normal 0.0-0.5 [facility] Comment on above: Performed By: #### H EMDF, LIPA4, CMP3 #### [facility] [address] [place] [address] Eosinophils/100 WBC (Bld) 4.0 % Normal 1.0-6.0 [facility] Comment on above: Performed By: #### H EMDF, LIPA4, CMP3 #### [facility] [address] [place] [address] Erythrocyte distribution width (RBC) [Ratio] 12.9 % Normal 11.5-14.5 [facility] Comment on above: Performed By: #### H EMDF, LIPA4, CMP3 #### [facility] [address] [place] [address] Granulocytes/100 WBC (Bld) 59.9 % Normal 40.0-80.0 [facility] Comment on above: Performed By: #### H EMDF, LIPA4, CMP3 #### [facility] [address] [place] [address] Hematocrit (Bld) [Volume fraction] 41.6 % Normal 40.0-52.0 [facility] Comment on above: Performed By: #### H EMDF, LIPA4, CMP3 #### [facility] [address] [place] [address] Hemoglobin (Bld) [Mass/Vol] 15.2 g/dL Normal 13.0-18.0 [facility] Comment on above: Performed By: #### H EMDF, LIPA4, CMP3 #### [facility] [address] [place] [address] Lymphocytes (Bld) [#/Vol] 1.5 10*3/uL Normal 1.0-4.3 [facility] Comment on above: Performed By: #### H EMDF, LIPA4, CMP3 #### [facility] [address] [place] [address] Lymphocytes/100 WBC (Bld) 27.3 % Normal 20.0-40.0 [facility] Comment on above: Performed By: #### H EMDF, LIPA4, CMP3 #### [facility] [address] [place] [address] MCH (RBC) [Entitic mass] 30.6 pg Normal 26.0-34.0 [facility] Comment on above: Performed By: #### H EMDF, LIPA4, CMP3 #### [facility] [address] [place] [address] MCHC 36.5 % High 32.0-36.0 [facility] Comment on above: Performed By: #### H EMDF, LIPA4, CMP3 #### [facility] [address] [place] [address] MCV (RBC) [Entitic vol] 83.7 fL Normal 80.0-98.0 [facility] Comment on above: Performed By: #### H EMDF, LIPA4, CMP3 #### [facility] [address] [place] [address] Monocytes (Bld) [#/Vol] 0.4 10*3/uL Normal 0.0-0.8 [facility] Comment on above: Performed By: #### H EMDF, LIPA4, CMP3 #### [facility] [address] [place] [address] Monocytes/100 WBC (Bld) 7.9 % Normal 2.0-10.0 [facility] Comment on above: Performed By: #### H EMDF, LIPA4, CMP3 #### [facility] [address] [place] [address] Platelet mean volume (Bld) [Entitic vol] 7.5 fL Normal 7.4-10.4 [facility] Comment on above: Performed By: #### H EMDF, LIPA4, CMP3 #### [facility] [address] [place] [address] Platelets (Bld) [#/Vol] 259 10*3/uL Normal 140-440 [facility] Comment on above: Performed By: #### H EMDF, LIPA4, CMP3 #### [facility] [address] [place] [address] RBC (Bld) [#/Vol] 4.97 10*6/uL Normal 4.40-5.90 [facility] Comment on above: Performed By: #### H EMDF, LIPA4, CMP3 #### [facility] [address] [place] [address] WBC (Bld) [#/Vol] 5.6 10*3/uL Normal 3.6-10.7 [facility] Comment on above: Performed By: #### H EMDF, LIPA4, CMP3 #### [facility] [address] [place] [address] Lipaseon 08-29-2021 Lipase [Catalytic activity/Vol] 111 U/L Normal 23-300 [facility] Comment on above: Performed By: #### H EMDF, CMP3, LIPA4, TROPN #### [facility] [address] [place] [address] MRI CERVICAL SPINE WO CONTRA STOrdered By: Long Gonzalez on 08-26-2021 Patient Name: LEONEL LAKE [facility] ACCESSION EXAM DATE/TIME PROCEDURE ORDERING PROVIDER [id number] 08/26/2021 09:12 EDT MRI Spine Cervical w/o DO GONZALEZ EUGENE F. Contrast CPT code 93185 Reason For Exam (MRI Spine Cervical w/o [...] Phone: [facility] Incoming Radiology Results From [facility] - 08/26/2021 1:01 PM EDT Patient Name: LEONEL LAKE [facility] ACCESSION EXAM DATE/TIME PROCEDURE ORDERING PROVIDER [id number] 08/26/2021 09:12 EDT MRI Spine Cervical w/o DO GONZALEZ EUGENE F. Contrast CPT code 76676 Reason For Exam (MRI Spine Cervical w/o [...] and Time: 08/26/2021 1:01 [facility] Work Phone: [facility] Work Phone: MRI Spine Cervical w/o Contr sanjuana 08-26-2021 MRI Spine Cervical w/o Contrast Patient Name: LEONEL LA[facility] ACCESSION EXAM DATE/TIME PROCEDURE ORDERING PROVIDER [id number] 08/26/2021 09:12 EDT MRI Spine Cervical w/o DO CARLOS LONG [place] Contrast CPT code 08095 Reason For Exam (MRI Spine Cervical w/o [...] Transcribed Date and Time: 08/26/2021 1:01 Normal [facility] [employer] [facility] US ABDOMEN LIMITED Specify o rgan? LIVEROrdered By: Long Gonzalez on 08-26-2021 Patient Name: LEONEL LAKE Ultrasound ACCESSION EXAM DATE/TIME PROCEDURE ORDERING PROVIDER [id number] 08/26/2021 09:05 EDT US Abdomen Limited DO GONZALEZ EUGENE F. CPT code 96588 Reason For Exam (US Abdomen Limited) elev [...] Phone: [facility], [facility] Incoming Radiology Results From [facility] - 08/26/2021 10:34 AM EDT Patient Name: LEONEL LAKE Ultrasound ACCESSION EXAM DATE/TIME PROCEDURE ORDERING PROVIDER [id number] 08/26/2021 09:05 EDT US Abdomen Limited DO GONZALEZ EUGENE F. CPT code 75166 Reason For Exam (US Abdomen Limited) elev [...] JEFFREY Transcribed Date and Time: 08/26/2021 10:34 [facility] Work Phone: [facility] Work Phone: US Abdomen Limitedon US Abdomen Limited [facility]: [id number] ACCESSION EXAM DATE/TIME PROCEDURE ORDERING PROVIDER [id number] 08/26/2021 09:05 EDT US Abdomen Limited CARLOS DO LONG Hines. CPT code 29736 Reason For Exam (US Abdomen Limited) elev [...] Transcribed Date and Time: 08/26/2021 10:34 Normal [facility] CR Knee Complete 4+ Views Le fton 07-11-2021 CR Knee Complete 4+ Views Left Patient Name: ROBERT LAKE Diagnostic Radiology ACCESSION EXAM DATE/TIME PROCEDURE ORDERING PROVIDER [id number] 07/11/2021 11:21 EDT CR Knee Complete 4+ [id number] -STEWART NUR Left CPT code 73339 Reason For Exam (CR Knee Complete 4+ [...] Transcribed Date and Time: 07/11/2021 12:11 Normal [facility] MRI UPPER EXTREMITY LEFT W J T WO CONTRASTOrdered By: Stewart Nur on 07-11-2021 Patient Name: ROBERT [facility] ACCESSION EXAM DATE/TIME PROCEDURE ORDERING PROVIDER [id number] 07/11/2021 11:53 EDT MRI Up Ext Joint w/o [id number] -STEWART NUR Contrast Left CPT code 81535 Reason For Exam (MRI Up Ext Joint [...] Phone: [facility], [facility] Incoming Radiology Results From [facility] - 07/11/2021 2:58 PM EDT Patient Name: ROBERT [facility] ACCESSION EXAM DATE/TIME PROCEDURE ORDERING PROVIDER [id number] 07/11/2021 11:53 EDT MRI Up Ext Joint w/o [id number] STEWART ROSAS Contrast Left CPT code 95325 Reason For Exam (MRI Up Ext Joint [...] and Time: 07/11/2021 2:58 [facility] Work Phone: [phone] [facility] Work Phone: [phone] MRI Up Ext Joint w/o Contras t [place] 07-11-2021 MRI Up Ext Joint w/o Contrast Left Patient Name: ROBERT [facility] ACCESSION EXAM DATE/TIME PROCEDURE ORDERING PROVIDER [id number] 07/11/2021 11:53 EDT MRI Up Ext Joint w/o [id number] -STEWART NUR Left CPT code 04197 Reason For Exam (MRI Up Ext Joint [...] Transcribed Date and Time: 07/11/2021 2:58 Normal [facility] [employer] [facility] XR KNEE LEFT (MIN 4 VIEWS)Or dered By: Steawrt Nur on 07-11-2021 [id number] ACCESSION EXAM DATE/TIME PROCEDURE ORDERING PROVIDER [id number] 07/11/2021 11:21 EDT CR Knee Complete 4+ [id number] -TOKIE, STEWART Views Left CPT code 71600 Reason For Exam (CR Knee Complete 4+ [...] LAURA Transcribed Date and Time: 07/11/2021 12:11 [facility] Work Phone: [facility] Incoming Radiology Results From [facility] - 07/11/2021 12:11 PM EDT Patient Name: ROBERT LAKE Diagnostic Radiology ACCESSION EXAM DATE/TIME PROCEDURE ORDERING PROVIDER [id number] 07/11/2021 11:21 EDT CR Knee Complete 4+ [id number] -TOKIE, STEWART Views Left CPT code 28404 Reason For Exam (CR Knee Complete 4+ [...] Radiology ACCESSION EXAM DATE/TIME PROCEDURE ORDERING PROVIDER [id number] 03/08/2021 16:34 EDT CR Chest PA & LAT MD LUU JESSE CPT code 55848 Reason For Exam (CR Chest PA & [...] Phone: [facility] Incoming Radiology Results From [facility] - 03/08/2021 4:51 PM EDT Patient Name: ROBERT LAKE Diagnostic Radiology ACCESSION EXAM DATE/TIME PROCEDURE ORDERING PROVIDER [id number] 03/08/2021 16:34 EDT CR Chest PA & LAT MD LUU JESSE CPT code 40018 Reason For Exam (CR Chest PA & [...] Radiology ACCESSION EXAM DATE/TIME PROCEDURE ORDERING PROVIDER [id number] 03/08/2021 16:34 EDT CR Shoulder 2+ Views MD DEMARCUSDEMETRIO CPT code 98493 Reason For Exam (CR Shoulder 2+ Views [...] Phone: [facility] Incoming Radiology Results From [facility] - 03/08/2021 4:51 PM EDT Patient Name: ROBERT LAKE Diagnostic Radiology ACCESSION EXAM DATE/TIME PROCEDURE ORDERING PROVIDER [id number] 03/08/2021 16:34 EDT CR Shoulder 2+ Views MD DEMARCUSDEMETRIO CPT code 28551 Reason For Exam (CR Shoulder 2+ Views [...] Basophils #/vol (Bld) 0.1 E3/mcL Normal 0.0-0.2 [facility] Comment on above: Order Comment: Order Added by Discern Expert. Performed By: #### 2 [id number] #### MARY JO Rem[facility] [address] [place] [address] Basophils/100 WBC (Bld) 1.7 % Normal 0.0-2.0 [facility] Comment on above: Order Comment: Order Added by Discern Expert. Performed By: #### 2 165192 #### MARY JO Rem[facility] [address] [place] [address] Eos Absolute 0.3 E3/mcL Normal 0.0-0.7 [facility] Comment on above: Order Comment: Order Added by Discern Expert. Performed By: #### 2 [id number] #### MARY JO [facility] [address] [place] [address] Eosinophils/100 WBC (Bld) 5.4 % Normal 0.0-11.0 [facility] Comment on above: Order Comment: Order Added by Discern Expert. Performed By: #### 2 027875 #### MARY JO Rem[facility] [address] [place] [address] Lymphocytes #/vol (Bld) 1.2 E3/mcL Normal 1.2-3.4 [facility] Comment on above: Order Comment: Order Added by Discern Expert. Performed By: #### 2 989807 #### MARY JO [facility] [address] [place] [address] Lymphocytes/100 WBC (Bld) 23.9 % Normal 20.0-55.0 [facility] Comment on above: Order Comment: Order Added by Discern Expert. Performed By: #### 2 165481 #### MARY JO Rem[facility] [address] [place] [address] Sutter Absolute 0.3 E3/mcL Normal 0.0-0.7 [facility] Comment on above: Order Comment: Order Added by Discern Expert. Performed By: #### 2 153057 #### MARY JO Rem[facility] [address] [place] [address] Monocytes/100 WBC (Bld) 6.5 % Normal 0.0-10.0 [facility] Comment on above: Order Comment: Order Added by Discern Expert. Performed By: #### 2 [id number] #### MARY JO [facility] [address] [place] [address] Neutro Absolute 3.2 E3/mcL Normal 1.4-6.5 [facility] Comment on above: Order Comment: Order Added by Discern Expert. Performed By: #### 2 284152 #### MARY JO [facility] [address] [place] [address] Neutro Auto 62.5 % Normal 37.0-75.0 [facility] Comment on above: Order Comment: Order Added by Discern Expert. Performed By: #### 2 [id number] #### MARY JO LozanoHemo [address] [place] [address] BMPon 02-26-2019 Anion gap molar conc 14 mmol/L Normal 10-20 [facility] Comment on above: Performed By: #### 2 [id number] #### MARY JO [employer] [address] [place] [address] Calcium mass conc 9.1 mg/dL Normal 8.6-10.3 [facility] Comment on above: Performed By: #### 2 676251 #### MARY JO [employer] [address] [place] [address] Chloride molar conc 99 mmol/L Normal 98-107 [facility] Comment on above: Performed By: #### 2 628500 #### MARY JO [employer] [address] [place] [address] CO2 molar conc 23.0 mmol/L Normal 21.0-32.0 [facility] Comment on above: Performed By: #### 2 664995 #### MARY JO [employer] [address] [place] [address] Creatinine mass conc 0.8 mg/dL Normal 0.5-1.3 [facility] Comment on above: Performed By: #### 2 192091 #### MARY JO [employer] [address] [place] [address] Glucose mass conc 331 mg/dL High 70-99 [facility] Comment on above: Performed By: #### 2 783187 #### MARY JO [employer] [address] [place] [address] Potassium molar conc 3.6 mmol/L Normal 3.5-5.3 [facility] Comment on above: Performed By: #### 2 123552 #### MARY JO [employer] [address] [place] [address] Sodium molar conc 132 mmol/L Low 136-145 [facility] Comment on above: Performed By: #### 2 756127 #### MARY JO [employer] [address] [place] [address] Urea nitrogen mass conc 7 mg/dL Normal 6-23 [facility] Comment on above: Performed By: #### 2 433275 #### MARY JO [employer] [address] [place] [address] Urea nitrogen/Creatinine mass ratio 8.8 ratio Normal 5.4-30.0 [facility] Comment on above: Performed By: #### 2 277249 #### MARY JO [employer] [address] [place] [address] CBC w/ Auto Diffon 9 Erythrocyte distribution width Ratio (RBC) 13.2 % Normal 11.5-14.5 [facility] Comment on above: Performed By: #### 2 [id number] #### MARY JO LozanoHemo [address] [place] [address] Hematocrit Volume Fraction (Bld) 45.3 % Normal 42.0-52.0 [facility] Comment on above: Performed By: #### 2 455759 #### MARY JO LozanoHemo [address] [place] [address] Hemoglobin mass conc (Bld) 15.7 g/dL Normal 13.5-18.0 [facility] Comment on above: Performed By: #### 2 559251 #### MARY JO LozanoHemo [address] [place] [address] MCH Entitic mass (RBC) 29.5 pg Normal 27.0-31.0 [facility] Comment on above: Performed By: #### 2 807548 #### MARY JO LozanoHemo [address] [place] [address] MCHC mass conc (RBC) 34.7 g/dL Normal 33.0-37.0 [facility] Comment on above: Performed By: #### 2 655796 #### MARY JO LozanoHemo [facility] [place] [address] MCV Entitic volume (RBC) 84.9 fL Normal 78.0-100.0 [facility] Comment on above: Performed By: #### 2 034457 #### MARY JO LozanoHemo [facility] [place] [address] Platelet mean volume Entitic volume (Bld) 7.8 fL Normal 7.4-11.0 [facility] Comment on above: Performed By: #### 2 [id number] #### MARY JOCurry LozanoHemo [facility] [place] [address] Platelets #/vol (Bld) 234 E3/mcL Normal 130-400 [facility] Comment on above: Performed By: #### 2 968512 #### MARY JO LozanoHemo [facility] [place] [address] RBC #/vol (Bld) 5.33 E6/mcL Normal 3.90-6.10 [facility] Comment on above: Performed By: #### 2 245688 #### MARY JOCurry LozanoHemo [facility] [place] [address] WBC #/vol (Bld) 5.2 E3/mcL Normal 3.6-11.0 [facility] Comment on above: Performed By: #### 2 297186 #### MARY JOCurry LozanoHemo [address] [place] [address] Abdomen/Pelvis w/o Contra ston 02-26-2019 CT Abdomen/Pelvis w/o Contrast Exam Date/Time: 02/26/2019 18:11 EDT Reason for Exam: left flank and LLQ pain;Pain Report STUDY: CT Abdomen/Pelvis w/o Contrast; 02/26/2019 6:11 pm INDICATION: Pain. Pain COMPARISON: No comparison available ACCESSION NUMBER(S): [id number] ORDERING CLINICIAN: Fransisco Mireles TECHNIQUE: CT of [...] pm Signed by: Deonte Patrick MD Technologist: [facility] Normal [facility] Hep Func Panelon 02-26-2019 Albumin mass conc 4.2 g/dL Normal 3.4-5.0 [facility] Comment on above: Performed By: #### 2 113632 #### MARY JO L[employer]anoSmart[employer] [address] [place] [address] Albumin/Globulin mass ratio 1.8 {ratio} Normal 1.1-1.9 [facility] Comment on above: Performed By: #### 2 295862 #### MARY JO [employer] [address] [place] [address] Alk Phos 88 Int._Unit/L Normal 33-120 [facility] Comment on above: Performed By: #### 2 659954 #### MARY JO [employer] [address] [place] [address] ALT enzyme act/vol 68 Int._Unit/L High 10-52 [facility] Comment on above: Performed By: #### 2 140953 #### MARY JO Renner [address] [place] [address] AST enzyme act/vol 56 Int._Unit/L High 9-39 [facility] Comment on above: Performed By: #### 2 724851 #### [place] [address] [place] [address] Bili Direct 0.07 mg/dL Normal 0.00-0.30 [facility] Comment on above: Performed By: #### 2 633766 #### MARY JO Loz[address] [address] Bili Indirect 0.51 mg/dL Normal [facility] Comment on above: Result Comment: No e stablished ranges available for the indirect bilirubin Performed By: #### 2 [id number] #### MARY JO Lozano[address] [address] Bili Total 0.58 mg/dL Normal 0.00-1.20 [facility] Comment on above: Performed By: #### 2 403611 #### MARY JO Lozano[address] [address] Globulin mass conc (S) 2.0 g/dL Normal 2.0-4.0 [facility] Comment on above: Performed By: #### 2 599390 #### [place] [address] [place] [address] Protein mass conc 6.6 g/dL Normal 6.4-8.2 [facility] Comment on above: Performed By: #### 2 [id number] #### MARY JO [employer] [address] [place] [address] Lipase Levelon 02-26-2019 Lipase Lvl 32 Int._Unit/L Normal 9-82 [facility] Comment on above: Performed By: #### 2 [id number] #### MARY JO [employer] [address] [place] [address] UA Completeon 02-26-2019 Color Nom (U) Straw Normal Yellow [facility] Comment on above: Performed By: #### 8 [id number] #### MARY JO Urinalysis Automated Subsection [address] [place] [address] Glucose mass conc (U) 3+ Abnormal Negative [facility] Comment on above: Performed By: #### 8 [id number] #### MARY JO Urinalysis Automated Subsection [facility] [place] [address] Ketones Ql (U) Negative Normal Negative [facility] Comment on above: Performed By: #### 8 [id number] #### MARY JO Urinalysis Automated Subsection [address] [place] [address] UA Blood Negative Normal Negative [facility] Comment on above: Performed By: #### 8 [id number] #### MARY JO Urinalysis Automated Subsection [facility] [place] [address] UA Clarity Clear Normal Clear [facility] Comment on above: Performed By: #### 8 [id number] #### MARY JO Urinalysis Automated Subsection [address] [place] [address] UA Leuk Est Negative Normal Negative [facility] Comment on above: Performed By: #### 8 [id number] #### MARY JO Urinalysis Automated Subsection [address] [place] [address] UA Nitrite Negative Normal Negative [facility] Comment on above: Performed By: #### 8 [id number] #### MARYJ O Urinalysis Automated Subsection [address] [place] [address] UA pH 6.0 Normal 4.6-8.0 [facility] Comment on above: Performed By: #### 8 [id number] #### MARY JO Urinalysis Automated Subsection [address] [place] [address] UA Protein Negative Normal Negative [facility] Comment on above: Performed By: #### 8 [id number] #### MARY JO Urinalysis Automated Subsection [address] [place] [address] UA Spec Grav 1.028 Normal 1.003-1.030 [facility] Comment on above: Performed By: #### 8 [id number] #### MARY JO Urinalysis Automated Subsection [facility] [place] [address] UA Urobilinogen Negative Normal [facility] Comment on above: Result Comment: Due to a manufacturing issue, low positive urobilinogen results may be fasely positive. Correlate with urine bilirubin and additional clinical/laboratory findings to assess the risk of hemolytic anemia or liver disease. If clinically indicated, repeat testing with an alternate method is available by contacting the laboratory within 24 hours. Performed By: #### [id number] #### MARY JO Urinalysis Automated Subsection [facility] [place] [address] UA WBC 0-5 Normal 0-5 [facility] Comment on above: Performed By: #### [id number] #### MARY JO Urinalysis Automated Subsection [facility] [place] [id number] Urobilinogen Qn (U) Negative Normal Negative [facility] Comment on above: Performed By: #### [id number] #### MARY JO Urinalysis Automated Subsection [facility] [place] [id number] eGFRon 02-26-2019 GFR/1.73 sq M predicted among non-blacks MDRD vol rate/area (S/P/Bld) mL/min/{1.73_m2} Normal [facility] Comment on above: Order Comment: Order added by Discern Expert. Performed By: #### [id number] #### MARY JO [employer] [address] [place], [place] [id number] Vital Signs Date Time Vital Sign Value Performing Clinician Facility 08-23-2025 22:42-0400 Diastolic blood pressure 74 mm[Hg] Terrell Enriquez MD Work Phone: [facility] 08-23-2025 22:42-0400 Heart rate 84 /min Terrell Enriquez MD Work Phone: [facility] 08-23-2025 22:42-0400 Respiratory rate 16 /min Terrell Enriquez MD Work Phone: [facility] 08-23-2025 22:42-0400 SaO2% (BldA) [Mass fraction] 98 % Terrell Enriquez MD Work Phone: [facility] 08-23-2025 22:42-0400 Systolic blood pressure 131 mm[Hg] Terrell Enriquez MD Work Phone: [facility] 08-23-2025 20:19-0400 Body height 180.3 cm Terrell Enriquez MD Work Phone: [facility] 08-23-2025 20:19-0400 Body mass index (BMI) [Ratio] 33.47 kg/m2 Terrell Enriquez MD Work Phone: [facility] 08-23-2025 20:19-0400 Body temperature 97.5 [degF] Terrell Enriquez MD Work Phone: [facility] 08-23-2025 20:19-0400 Body weight 108.86 kg Terrell Enriquez MD Work Phone: [facility] 08-08-2025 11:23-0400 Body weight 113 kg 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[employer] [facility] 08-06-2025 09:43-0400 Body temperature 97.6 [degF] Wanda Mata [employer]AG [employer] R[employer]ER-C Work Phone: [facility] 08-06-2025 09:43-0400 Diastolic blood pressure 81 mm[Hg] Wanda Mata [employer]AG [employer]-C Work Phone: [facility] 08-06-2025 09:43-0400 Heart rate 72 /min Wanda Mata [employer]AG [employer]-C Work Phone: [facility] 08-06-2025 09:43-0400 Respiratory rate 16 /min Wanda Mata [employer]AG [employer]-C Work Phone: [facility] 08-06-2025 09:43-0400 SaO2% (BldA) [Mass fraction] 96 % Wanda Mata [employer]AG [employer]-C Work Phone: [facility] 08-06-2025 09:43-0400 Systolic blood pressure 128 mm[Hg] Wanda Mata [employer]AG [employer]ER-C Work Phone: [facility] 08-06-2025 08:17-0400 Body height 180.34 cm Wanda Mata [employer]AG [employer]-C Work Phone: [facility] 08-06-2025 08:17-0400 Body mass index (BMI) [Ratio] 34.5 kg/m2 Wanda Mata [employer]AG [employer]-C Work Phone: [facility] 08-06-2025 08:17-0400 Body weight 112.3 kg Wnada Mata DRAG [employer] RACER-C Work Phone: [facility] 07-11-2025 10:05-0400 Body weight 114.9 kg 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[employer] [facility] 06-13-2025 09:36-0400 Body weight 115.7 kg 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[employer] [facility] 05-23-2025 13:02-0400 Diastolic blood pressure 74 mm[Hg] Wanda Mata DRAG [employer] R[employer]ER-C Work Phone: [facility] 05-23-2025 13:02-0400 Heart rate 74 /min Wanda Mata [employer]AG [employer]-C Work Phone: [facility] 05-23-2025 13:02-0400 Respiratory rate 16 /min Wanda Mata [employer]AG [employer]-C Work Phone: [facility] 05-23-2025 13:02-0400 SaO2% (BldA) [Mass fraction] 94 % Wanda Mata [employer]AG [employer]-C Work Phone: [facility] 05-23-2025 13:02-0400 Systolic blood pressure 123 mm[Hg] Wanda Mata DRAG [employer] RACER-C Work Phone: [facility] 05-23-2025 12:39-0400 Body height 180.34 cm Wanda Mata [employer]AG [employer]ER-C Work Phone: [facility] 05-23-2025 12:39-0400 Body mass index (BMI) [Ratio] 35.1 kg/m2 Wanda Mata [employer]AG [employer]-C Work Phone: [facility] 05-23-2025 12:39-0400 Body temperature 96.7 [degF] Wanda Mata DRAG [employer]ER-C Work Phone: [facility] 05-23-2025 12:39-0400 Body weight 114.3 kg Wanda Mata [employer]AG [employer]ER-C Work Phone: [facility] 03-20-2025 15:55-0400 Body temperature 98.06 [degF] KATINA BANERJEE MD [facility] 03-20-2025 15:55-0400 Body weight 113.8 kg KATINA BANERJEE MD [facility] 03-20-2025 15:55-0400 Diastolic Blood Pressure Non-Invasive 72 mm[Hg] KATINA BANERJEE MD [facility] 03-20-2025 15:55-0400 Heart rate 82 /min KATINA BANERJEE MD [facility] 03-20-2025 15:55-0400 Respiratory rate 18 /min KATINA BANERJEE MD [facility] 03-20-2025 15:55-0400 Systolic Blood Pressure Non-Invasive 117 mm[Hg] KATINA BANERJEE MD [facility] 02-05-2025 08:14-0400 Body temperature 97.9 [degF] Wanda Mata [employer]AG [employer]ER-C Work Phone: [facility] 02-05-2025 08:14-0400 Diastolic blood pressure 87 mm[Hg] Wanda Mata [employer]AG [employer]-C Work Phone: [facility] 02-05-2025 08:14-0400 Heart rate 65 /min Wanda Mata [employer]AG [employer]-C Work Phone: [facility] 02-05-2025 08:14-0400 Respiratory rate 18 /min Wanda Mata [employer]AG [employer]-C Work Phone: [facility] 02-05-2025 08:14-0400 SaO2% (BldA) [Mass fraction] 97 % Wanda Mata [employer]AG [employer]-C Work Phone: [facility] 02-05-2025 08:14-0400 Systolic blood pressure 135 mm[Hg] 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 Mata 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 [employer] 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-C Work Phone: [facility] 02-05-2025 05:59-0400 Body height 154.94 cm Wanda Mata DRAG [employer] RACER-C Work Phone: [facility] 02-05-2025 05:59-0400 Body mass index (BMI) [Ratio] 48.7 kg/m2 Wanda Mata [employer]AG [employer]-C Work Phone: [facility] 02-05-2025 05:59-0400 Body weight 117 kg Wanda Mata DRAG [employer] R[employer]ER-C Work Phone: [facility] 10-18-2024 10:02-0500 Diastolic Blood Pressure Non-Invasive 65 mm[Hg] 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[employer] [facility] 10-18-2024 10:02-0500 Systolic Blood Pressure Non-Invasive 100 mm[Hg] 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[employer] [facility] 09-23-2024 11:20-0400 Diastolic blood pressure 78 mm[Hg] Osman Hurtado MD Work Phone: [facility] 09-23-2024 11:20-0400 Heart rate 81 /min Osman Hurtado MD Work Phone: [facility] 09-23-2024 11:20-0400 Respiratory rate 16 /min Osman Hurtado MD Work Phone: [facility] 09-23-2024 11:20-0400 SaO2% (BldA) [Mass fraction] 99 % Osman Hurtado MD Work Phone: [facility] [employer] 09-23-2024 11:20-0400 Systolic blood pressure 118 mm[Hg] Osman Hurtado MD Work Phone: [facility] [employer] 09-23-2024 10:35-0400 Body height 177.8 cm Osman Hurtado MD Work Phone: [facility] [employer] 09-23-2024 10:35-0400 Body mass index (BMI) [Ratio] 35.87 kg/m2 Osman Hurtado MD Work Phone: [facility] [employer] 09-23-2024 10:35-0400 Body temperature 98.49 [degF] Osman Hurtado MD Work Phone: [facility] [employer] 09-23-2024 10:35-0400 Body weight 113.4 kg Osman Hurtado MD Work Phone: [facility] [employer] 08-10-2024 17:21-0400 Blood Pressure Cuff Size SHIREEN LAGUERRE DO [facility] 08-10-2024 17:21-0400 Blood Pressure Location SHIREEN LAGUERRE DO [facility] 08-10-2024 17:21-0400 Blood Pressure Method SHIREEN HILL DO [facility] 08-10-2024 17:21-0400 Body height 177.8 cm SHIREEN LAGUERRE DO [facility] 08-10-2024 17:21-0400 Body temperature 98.06 [degF] SHIREEN LAGUERRE DO [facility] 08-10-2024 17:21-0400 Body weight 114.9 kg SHIREEN LAGUERRE DO [facility] 08-10-2024 17:21-0400 Diastolic Blood Pressure Non-Invasive 75 mm[Hg] SHIREEN HILL DO [facility] 08-10-2024 17:21-0400 Heart rate 76 /min SHIREEN LAGUERRE DO [facility] 08-10-2024 17:21-0400 Reason For Taking VItal Signs SHIREEN LAGUERRE DO [facility] 08-10-2024 17:21-0400 Respiratory rate 16 /min SHIREEN LAGUERRE DO [facility] 08-10-2024 17:21-0400 Systolic Blood Pressure Non-Invasive 118 mm[Hg] SHIREEN LAGUERRE DO [facility] 06-29-2024 16:29-0400 Body temperature 97.52 [degF] GILMA HYLTON DO [facility] 06-29-2024 16:29-0400 Body weight 115.6 kg GILMA HYLTON DO [facility] 06-29-2024 16:29-0400 Diastolic Blood Pressure Non-Invasive 79 mm[Hg] GILMA HYLTON DO [facility] 06-29-2024 16:29-0400 Heart rate 88 /min GILMA HYLTON DO [facility] 06-29-2024 16:29-0400 Respiratory rate 18 /min GILMA HYLTON DO [facility] 06-29-2024 16:29-0400 Systolic Blood Pressure Non-Invasive 119 mm[Hg] GILMA HYLTON DO [facility] 04-01-2024 02:43-0400 Diastolic blood pressure 80 mm[Hg] Triston Herrera MD Work Phone: [facility] [employer] 04-01-2024 02:43-0400 Heart rate 80 /min Triston Herrera MD Work Phone: [facility] [employer] 04-01-2024 02:43-0400 Respiratory rate 16 /min Triston Herrera MD Work Phone: [facility] [employer] 04-01-2024 02:43-0400 SaO2% (BldA) [Mass fraction] 100 % Triston Herrera MD Work Phone: [facility] [employer] 04-01-2024 02:43-0400 Systolic blood pressure 124 mm[Hg] Triston Herrera MD Work Phone: [facility] [employer] 04-01-2024 01:12-0400 Body height 180.3 cm Triston Herrera MD Work Phone: [facility] [employer] 04-01-2024 01:12-0400 Body mass index (BMI) [Ratio] 34.87 kg/m2 Triston Herrera MD Work Phone: [facility] [employer] 04-01-2024 01:12-0400 Body temperature 97.7 [degF] Triston Herrera MD Work Phone: [facility] [employer] 04-01-2024 01:12-0400 Body weight 113.4 kg Triston Herrera MD Work Phone: [facility] [employer] 02-27-2024 09:18-0400 Body temperature 99.14 [degF] DR LUIS EDEN DO [facility] 02-27-2024 09:18-0400 Diastolic Blood Pressure Non-Invasive 81 mm[Hg] DR LUIS EDEN DO [facility] 02-27-2024 09:18-0400 Heart rate 91 /min DR LUIS EDEN DO [facility] 02-27-2024 09:18-0400 Respiratory rate 16 /min DR LUIS EDEN DO [facility] 02-27-2024 09:18-0400 Systolic Blood Pressure Non-Invasive 130 mm[Hg] DR LUIS EDEN DO [facility] 02-07-2024 08:36-0400 Body temperature 98.2 [degF] [facility] 02-07-2024 08:36-0400 Diastolic blood pressure 81 mm[Hg] [facility] 02-07-2024 08:36-0400 Heart rate 75 /min [facility] 02-07-2024 08:36-0400 Respiratory rate 16 /min [facility] 02-07-2024 08:36-0400 SaO2% (BldA) [Mass fraction] 95 % [facility] 02-07-2024 08:36-0400 Systolic blood pressure 123 mm[Hg] [facility] 02-07-2024 06:38-0400 Body height 180.[address] [facility] 02-07-2024 06:38-0400 Body mass index (BMI) [Ratio] 34.2 kg/m2 [facility] 02-07-2024 06:38-0400 Body weight 111.[address] [facility] 08-27-2023 20:09-0400 Body temperature 98.01 [degF] Devon MarcusKormeli DO Work Phone: [facility] 08-27-2023 20:09-0400 Diastolic blood pressure 76 mm[Hg] Devon [employer] Work Phone: [facility] [employer] 08-27-2023 20:09-0400 Heart rate 74 /min Devon [employer] Work Phone: [facility] 08-27-2023 20:09-0400 Respiratory rate 18 /min Devon [employer] Work Phone: [facility] 08-27-2023 20:09-0400 SaO2% (BldA) [Mass fraction] 99 % Devon [employer] Work Phone: [facility] 08-27-2023 20:09-0400 Systolic blood pressure 118 mm[Hg] Devon [employer] Work Phone: [facility] 05-10-2023 09:55-0400 Body temperature 97.5 [degF] [facility] 05-10-2023 09:55-0400 Diastolic blood pressure 69 mm[Hg] [facility] 05-10-2023 09:55-0400 Heart rate 70 /min [facility] 05-10-2023 09:55-0400 Respiratory rate 16 /min [facility] 05-10-2023 09:55-0400 SaO2% (BldA) [Mass fraction] 96 % [facility] 05-10-2023 09:55-0400 Systolic blood pressure 109 mm[Hg] [facility] 05-10-2023 07:33-0400 Body height 180.[address] [facility] 05-10-2023 07:33-0400 Body mass index (BMI) [Ratio] 35.9 kg/m2 [facility] 05-10-2023 07:33-0400 Body weight 117.[address] [facility] 01-11-2023 09:01-0500 Body height 180.[address] [facility] 01-11-2023 09:01-0500 Body mass index (BMI) [Ratio] 36.2 kg/m2 [facility] 01-11-2023 09:01-0500 Body temperature 97.2 [degF] [facility] 01-11-2023 09:01-0500 Body weight 117.[address] [facility] 01-11-2023 09:01-0500 Diastolic blood pressure 86 mm[Hg] [facility] 01-11-2023 09:01-0500 Heart rate 80 /min [facility] 01-11-2023 09:01-0500 Respiratory rate 16 /min [facility] 01-11-2023 09:01-0500 SaO2% (BldA) [Mass fraction] 98 % [facility] 01-11-2023 09:01-0500 Systolic blood pressure 137 mm[Hg] [facility] 05-07-2022 21:30-0400 Diastolic blood pressure 82 mm[Hg] Saúl Shah MD Work Phone: [facility] 05-07-2022 21:30-0400 Heart rate 80 /min Saúl Shah MD Work Phone: [facility] 05-07-2022 21:30-0400 Respiratory rate 18 /min Súal Shah MD Work Phone: [facility] 05-07-2022 21:30-0400 SaO2% (BldA) [Mass fraction] 100 % Saúl Shah MD Work Phone: [facility] 05-07-2022 21:30-0400 Systolic blood pressure 115 mm[Hg] Saúl Shah MD Work Phone: [facility] 05-07-2022 19:27-0400 Body mass index (BMI) [Ratio] 35.87 kg/m2 Saúl Shah MD Work Phone: [facility] 05-07-2022 19:27-0400 Body temperature 98.29 [degF] Saúl Shah MD Work Phone: [facility] 05-07-2022 19:27-0400 Body weight 113.4 kg Saúl Shah MD Work Phone: [facility] 01-20-2022 18:56-0500 Diastolic blood pressure 81 mm[Hg] Jason Jarrett MD Work Phone: [facility] 01-20-2022 18:56-0500 Heart rate 84 /min Jason Jarrett MD Work Phone: [facility] 01-20-2022 18:56-0500 Respiratory rate 14 /min Jason Jarrett MD Work Phone: [facility] 01-20-2022 18:56-0500 SaO2% (BldA) [Mass fraction] 99 % Jason Jarrett MD Work Phone: [facility] 01-20-2022 18:56-0500 Systolic blood pressure 119 mm[Hg] Jason Jarrett MD Work Phone: [facility] 01-20-2022 18:18-0500 Body height 177.8 cm Jason Jarrett MD Work Phone: [facility] 01-20-2022 18:18-0500 Body mass index (BMI) [Ratio] 36.73 kg/m2 Jason Jarrett MD Work Phone: [facility] 01-20-2022 18:18-0500 Body temperature 98.91 [degF] Jason Jarrett MD Work Phone: [facility] 01-20-2022 18:18-0500 Body weight 116.12 kg Jason Jarrett MD Work Phone: [facility] 10-13-2021 11:27-0500 Body temperature 97.88 [degF] FRANK SMITH DO [facility] 10-13-2021 11:27-0500 Diastolic blood pressure 85 mm[Hg] FRANK SMITH DO [facility] 10-13-2021 11:27-0500 Heart rate 93 /min FRANK SMITH DO [facility] 10-13-2021 11:27-0500 Respiratory rate 16 /min FRANK SMITH DO [facility] 10-13-2021 11:27-0500 Systolic blood pressure 129 mm[Hg] FRANK SMITH DO [facility] 09-11-2021 11:08-0400 Diastolic blood pressure 70 mm[Hg] Philip Doran MD Work Phone: [facility] Work Phone: 09-11-2021 11:08-0400 Heart rate 80 /min Philip Doran MD Work Phone: [facility] Work Phone: 09-11-2021 11:08-0400 Respiratory rate 16 /min Philip Doran MD Work Phone: [facility] Work Phone: 09-11-2021 11:08-0400 SaO2% (BldA) [Mass fraction] 95 % Philip Doran MD Work Phone: [facility] Work Phone: 09-11-2021 11:08-0400 Systolic blood pressure 108 mm[Hg] Philip Doran MD Work Phone: [facility] Work Phone: 09-11-2021 10:11-0400 Body temperature 97.5 [degF] Philip Doran MD Work Phone: [facility] Work Phone: 09-11-2021 07:49-0400 Body height 180.3 cm Philip Doran MD Work Phone: [facility] Work Phone: 09-11-2021 07:49-0400 Body mass index (BMI) [Ratio] 34.59 kg/m2 Philip Doran MD Work Phone: [facility] Work Phone: 09-11-2021 07:49-0400 Body weight 112.49 kg Philip Doran MD Work Phone: [facility] Work Phone: 09-04-2021 12:05-0400 Body height 180.3 cm Philip Doran MD Work Phone: [facility] Work Phone: 09-04-2021 12:05-0400 Body mass index (BMI) [Ratio] 34.62 kg/m2 Philip Doran MD Work Phone: [facility] Work Phone: 09-04-2021 12:05-0400 Body weight 112.61 kg Philip Doran MD Work Phone: [facility] Work Phone: 09-04-2021 12:03-0400 Body temperature 97.39 [degF] Philip Doran MD Work Phone: [facility] Work Phone: 09-04-2021 12:03-0400 Diastolic blood pressure 85 mm[Hg] Philip Doran MD Work Phone: [facility] Work Phone: 09-04-2021 12:03-0400 Heart rate 88 /min Philip Doran MD Work Phone: [facility] Work Phone: 09-04-2021 12:03-0400 Respiratory rate 16 /min Philip Doran MD Work Phone: [facility] Work Phone: 09-04-2021 12:03-0400 SaO2% (BldA) [Mass fraction] 98 % Philip Doran MD Work Phone: [facility] Work Phone: 09-04-2021 12:03-0400 Systolic blood pressure 124 mm[Hg] Philip Doran MD Work Phone: [facility] Work Phone: 09-02-2021 11:11-0400 Body mass index (BMI) [Ratio] 28.59 kg/m2 Rafael Ring MD Work Phone: [facility] Work Phone: 09-02-2021 11:11-0400 Body temperature 97.81 [degF] Rafael Ring MD Work Phone: [facility] Work Phone: 09-02-2021 11:11-0400 Body weight 92.99 kg Rafael Ring MD Work Phone: [facility] Work Phone: 09-02-2021 11:11-0400 Diastolic blood pressure 75 mm[Hg] Rafael Ring MD Work Phone: [facility] Work Phone: 09-02-2021 11:11-0400 Heart rate 77 [...] 97 % Demetrio Luu MD Work Phone: [facility] Work Phone: 03-08-2021 17:25-0400 Systolic blood pressure 112 mm[Hg] Demetrio Luu MD Work Phone: [facility] Work Phone: 03-08-2021 16:00-0400 Body temperature 97.9 [degF] Demetrio Luu MD Work Phone: [facility] Work Phone: 12-27-2019 19:04-0500 BMI (Body Mass Index) 36.96 kg/m2 Jason Jarrett [facility] Work Phone: 12-27-2019 19:04-0500 Body Temperature 98.1 [degF] Jason PHILLIPS Work Phone: 12-27-2019 19:04-0500 Body weight 120.2 kg Jason PHILLIPS Work Phone: 12-27-2019 19:04-0500 BP Diastolic 94 mm[Hg] Jason PHILLIPS Work Phone: 12-27-2019 19:04-0500 BP Systolic 141 mm[Hg] Jason PHILLIPS Work Phone: 12-27-2019 19:04-0500 Height 180.3 cm Jason PHILLIPS Work Phone: 12-27-2019 19:04-0500 Pulse (Heart Rate) 100 /min Jason PHILLIPS Work Phone: 12-27-2019 19:04-0500 Pulse Oximetry 96 % Jason PHILLIPS Work Phone: 12-27-2019 19:04-0500 Respiratory Rate 16 /min Jason PHILLIPS Work Phone: Encounters Encounter Date Encounter Type Care Provider Facility Start: 10-08-[facility] Start: 10-01-2025 End: 10-01-2025 Subsequent hospital visit by physician Ernestine Marquez MD Work Phone: [facility] Comment on above: Finger joint swellin g, right; Finger joint swelling, left Start: 10-01-2025 End: 10-01-2025 ambulatory [facility] Start: 10-01-2025 End: 10-01-2025 Office outpatient new 30 minutes Ernestine Marquez MD Work Phone: [facility] [place] Comment on above: Finger joint swellin g, left (Primary Dx) Start: 10-01-2025 End: 10-01-2025 ambulatory [facility] Start: 09-26-2025 ambulatory LEONEL GUILLERMO MD Faci lity:[facility] Start: 09-13-2025 End: 09-13-2025 ambulatory LEONEL GUILLERMO MD Facility[place] Start: 09-13-2025 End: 09-13-2025 Patient encounter procedure LEONEL GUILLERMO MD [facility] Start: 08-23-2025 End: 08-23-2025 Emergency department patient visit Terrell Enriquez MD Work Phone: [facility] Comment on above: Abdominal pain of mu ltiple sites (Primary Dx) Start: 08-22-2025 End: 08-22-2025 ambulatory LEONEL GUILLERMO MD Facility:[facility] Start: 08-22-2025 End: 08-22-2025 Patient encounter procedure LEONEL GUILLERMO MD [facility] Start: 08-20-2025 End: 08-20-2025 ambulatory Marc Aquino Facility:[facility] Start: 08-08-2025 End: 09-25-2025 ambulatory 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 Facility:[facility] Start: 08-08-2025 End: 09-25-2025 OTHER THERAPY 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[employer]CASE SPECIALIST [facility] Start: 08-06-2025 End: 08-06-2025 Admission to same day surgery center Dr. Marc Aquino MD [facility] Start: 08-06-2025 End: 08-06-2025 ambulatory Wanda Mata [employer]-C Work Phone: [facility] Start: 08-02-2025 End: 08-02-2025 ambulatory 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[employer] Facility:[facility] Start: 08-02-2025 End: 08-02-2025 Patient encounter procedure 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[employer] SPECIAL[employer] [facility] Start: 07-20-2025 End: 07-20-2025 ambulatory MICHAELA-C GENE HAUSER Facility:[facility] Start: 07-20-2025 End: 07-20-2025 Patient encounter procedure GENE HAUSER [facility] Start: 07-02-2025 ambulatory Marc Allan y:[facility] Start: 06-18-2025 End: 06-22-2025 ambulatory 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[employer] Facility:[facility] Start: 06-18-2025 End: 06-22-2025 Outreach Lab 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[employer] SPECIALIST [facility] Start: 06-18-2025 End: 06-18-2025 ambulatory 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[employer] Facility:[facility] Start: 06-18-2025 End: 06-18-2025 Patient encounter procedure 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[employer] SPECIAL[employer] [facility] Start: 05-23-2025 ambulatory Fabian Conde DRAG [employer]ACER Facilit y:[facility] Start: 05-23-2025 Non-patient / Non-visit Dr. Aragon Of yoanna SP[facility]KS [facility] Start: 05-23-2025 End: 05-23-2025 ambulatory Wanda Mata [employer]-C Work Phone: -[facility] Start: 05-23-2025 End: 05-23-2025 Patient encounter procedure Fabian Conde [employer]AG [employer]ACER-C -[facility] Work Phone: Start: 05-23-2025 End: 05-23-2025 ambulatory Fabian Conde [employer]AG [employer]ACER Facility:[facility] Start: 05-11-2025 End: 05-11-2025 ambulatory SHIREEN IVERSON MD Facility:[facility] Start: 05-11-2025 End: 05-11-2025 Patient encounter procedure SHIREEN IVERSON MD [facility] Start: 03-20-2025 End: 03-20-2025 Emergency department patient visit KATINA BANERJEE MD [facility] Start: 03-02-2025 End: 03-02-2025 ambulatory 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[employer] Facility:[facility] Start: 02-23-2025 End: 02-23-2025 ambulatory 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[employer] Facility:[facility] Start: 02-05-2025 End: 02-05-2025 Admission to same day surgery center Dr. Marc Aquino MD -Surgical Day Care Start: 02-05-2025 End: 02-05-2025 ambulatory Wanda Mata DRAG CAR RACER-C Work Phone: [facility] Work Phone: Start: 01-30-2025 End: 01-30-2025 Emergency department patient visit DEMETRIO MCLAUGHLIN MD Facility:[facility] Start: 09-23-2024 End: 09-23-2024 Subsequent hospital visit by physician [facility] Radiology Comment on above: Arrived Start: 09-23-2024 End: 09-23-2024 Emergency department patient visit Osman Hurtado MD Work Phone: [facility] ED Comment on above: Finger pain, left (P rimary Dx) Start: 08-10-2024 End: 08-10-2024 Emergency department patient visit SHIREEN LAGUERRE DO [facility] Start: 08-04-2024 End: 08-04-2024 Patient encounter procedure SURENDRA ROY PA-C [facility] Start: 07-19-2024 ambulatory WANDA ROGERS PRESS O[employer]-CASE SPECIALIST Facility:B Start: 06-29-2024 End: 06-29-2024 Emergency department patient visit GILMA HYLTON DO [facility] Start: 04-01-2024 End: 04-01-2024 Emergency department patient visit Triston Herrera MD Work Phone: [facility] ED Comment on above: Chest pain, unspecif ied type (Primary Dx) Start: 04-01-2024 End: 04-01-2024 Subsequent hospital visit by physician [facility] Radiology Comment on above: Arrived Start: 02-27-2024 End: 02-27-2024 Emergency department patient visit [facility] LUIS EDEN [facility] Start: 02-07-2024 End: 02-07-2024 Admission to same day surgery center [facility] Start: 02-07-2024 End: 02-07-2024 ambulatory [facility] Work Phone: Start: 12-27-2023 End: 12-31-2023 ambulatory WANDA MATA APRN-CASE SPECIALIST Facility:B Start: 12-27-2023 End: 12-31-2023 Outreach Lab 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[employer]-CASE SPECIALIST [facility] Start: 12-17-2023 End: 12-17-2023 Emergency department patient visit DEMETRIO MCLAUGHLIN MD Facility:B Start: 12-15-2023 End: 12-15-2023 ambulatory REGIS REAGAN MD Facility:B Start: 12-15-2023 End: 12-15-2023 Patient encounter procedure REGIS REAGAN MD [facility] Start: 11-26-2023 End: 11-26-2023 ambulatory MEGAN BARBOSA CASE SPECIALIST Facility:B Start: 11-26-2023 End: 11-26-2023 Patient encounter procedure MEGAN BARBOSA CASE SPECIALIST [facility] Start: 10-07-2023 End: 10-07-2023 ambulatory FABIAN CONDE PRESS OPER[employer]CASE SPECIALIST Facility:B Start: 10-07-2023 End: 10-07-2023 Patient encounter procedure FABIAN CONDE PRESS OPER[employer]CASE SPECIALIST [facility] Start: 09-14-2023 End: 09-14-2023 Emergency department patient visit 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CASE SPECIALIST Facility:B Start: 09-02-2023 End: 09-02-2023 ambulatory 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[employer]CASE SPECIALIST Facility:B Start: 09-02-2023 End: 09-02-2023 Patient encounter procedure FABIAN CONDE PRESS OPERATOR [employer]CASE SPECIALIST [facility] Start: 08-27-2023 End: 08-27-2023 Subsequent hospital visit by physician [facility] Radiology Comment on above: Arrived Start: 08-27-2023 End: 08-27-2023 Emergency department patient visit Devon Peterson DO Work Phone: [facility] ED Comment on above: Pain of left hand (P rimary Dx) Start: 08-13-2023 End: 08-17-2023 ambulatory 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[employer]CASE SPECIALIST Facility:B Start: 08-13-2023 End: 08-13-2023 ambulatory 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[employer]CASE SPECIAL[employer] Facility:B Start: 08-13-2023 End: 08-13-2023 Patient encounter procedure 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[employer]CASE SPECIALIST [facility] Start: 05-27-2023 End: 05-27-2023 Patient encounter procedure JORDAN AQUINO [facility] Start: 05-10-2023 End: 05-10-2023 Admission to same day surgery center [facility] Start: 05-10-2023 End: 05-10-2023 ambulatory [facility] Work Phone: Start: 01-14-2023 End: 01-14-2023 Patient encounter procedure JITENDRA VICKESR [facility] Start: 01-11-2023 End: 01-11-2023 Admission to same day surgery center [facility] Start: 01-11-2023 End: 01-11-2023 ambulatory [facility] Work Phone: Start: 05-14-2022 End: 05-14-2022 Patient encounter procedure SYEDA MCGARRY PRESS OPERATOR [employer]CASE SPECIALIST [facility] Start: 05-07-2022 End: 05-07-2022 Emergency department patient visit Saúl Shah MD Work Phone: [facility] Comment on above: Nausea (Primary Dx); Diarrhea, unspecified type Start: 01-20-2022 End: 01-20-2022 Emergency department patient visit Jason Jarrett MD Work Phone: [facility] Comment on above: Chest pain, unspecif ied type (Primary Dx) Start: 01-07-2022 End: 01-07-2022 Patient encounter procedure ADRIÁN MADHAV PRESS OPERATOR [employer]CASE SPECIALIST [facility] Start: 10-13-2021 End: 10-13-2021 Emergency department patient visit FRANK SMITH DO [facility] Start: 09-11-2021 End: 09-11-2021 Subsequent hospital visit by physician Philip Doran MD Work Phone: [facility] General Surgery Comment on above: Biliary colic (Prima ry Dx) Start: 09-04-2021 End: 09-04-2021 Subsequent hospital visit by physician Philip Doran MD Work Phone: [facility] Pre-Admit Testing Comment on above: Arrived Start: 09-02-2021 End: 09-02-2021 Emergency department patient visit Rafael Ring MD Work Phone: [facility] Comment on above: Calculus of gallblad markel without cholecystitis without obstruction (Primary Dx); Hyperglycemia Start: 08-26-2021 End: 08-26-2021 Subsequent hospital visit by physician Long Gonzalez DO Work Phone: [facility] MRI Comment on above: Pain in central left upper extremity; Elevated LFTs Start: 07-11-2021 End: 07-11-2021 Subsequent hospital visit by physician Stewart Cesar NP Work Phone: [facility] Comment on above: Acute pain of left k nee; Pain and swelling of left shoulder Start: 03-08-2021 End: 03-08-2021 Emergency department patient visit Demetrio Luu MD Work Phone: [facility] Comment on above: Left shoulder pain, unspecified chronicity (Primary Dx); Chest pain, unspecified type Start: 12-27-2019 End: 12-27-2019 Emergency department patient visit Jason Jarrett Work Phone: [facility] Comment on above: Acute pain of left s houlder (Primary Dx); Hidradenitis axillaris; Diastolic blood pressure 90 mm Hg or higher Start: 02-26-2019 End: 02-26-2019 Emergency department patient visit [facility] Facility:[facility] Start: 02-26-2019 Patient encounter procedure Facility:[id number] Procedures Date Procedure Procedure Detail Performing Clinician Start: 08-23-2025 Urnls dip stick/tabl et rgnt auto w/o microscopy Terrell Enriquez MD Work Phone: Start: 08-23-2025 Ct abdomen & pelvis w/o contrast material Terrell Enriquez MD Work Phone: Start: 08-23-2025 Comprehensive metabo lic panel Terrell Enriquez MD Work Phone: Start: 08-06-2025 Local anesthetic cer vical epidural block Wanda Adolfo DRAG CAR RACER-C Work Phone: Start: 08-06-2025 Fluoroscopy guided i njection of cervical spinal nerve root Wanda Adolfo DRAG CAR RACER-C Work Phone: Start: 05-23-2025 Creatinine blood Mahesh vasquez Adolfo DRAG CAR RACER-C Work Phone: Start: 05-23-2025 CT angiography of co ronary arteries Wanda Adolfo DRAG CAR RACER-C Work Phone: Start: 02-05-2025 Fluoroscopic guidance E pallavi Adolfo DRAG CAR RACER-C Work Phone: Start: 02-05-2025 X-ray of cervical spine Wandamegan Mata DRAG CAR RACER-C Work Phone: Start: 02-05-2025 Destructive procedur e of nerve Wandamariam Mata DRAG CAR RACER-C Work Phone: Start: 09-23-2024 Radex hand minimum 3 views Osman Hurtado MD Work Phone: Start: 04-01-2024 Radiologic exam ches t single view Triston Herrera MD Work Phone: Start: 04-01-2024 Basic metabolic pane l calcium total Triston Herrera MD Work Phone: Start: 04-01-2024 Ecg routine ecg w/le ast 12 lds trcg only w/o i&r Triston Herrera MD Work Phone: Start: 02-07-2024 Epidural anesthesia Start: 08-27-2023 Radex hand minimum 3 views Devon Peterson DO Work Phone: Start: 05-10-2023 Radio Frequency Abla tion (Left) Start: 01-11-2023 Local anesthetic cer vical epidural block Start: 01-11-2023 Fluoroscopy guided i njection of cervical spinal nerve root Start: 01-11-2023 Radiography of spine Start: 05-07-2022 Urnls dip stick/tabl et rgnt auto w/o microscopy Saúl Shah MD Work Phone: Start: 05-07-2022 Radiologic exam ches t single view Saúl Shah MD Work Phone: Start: 05-07-2022 Comprehensive metabo lic panel Saúl Shah MD Work Phone: Start: 01-20-2022 Radiologic [...] canal cer vical w/o contrast matrl Long Gonzalez DO Work Phone: Start: 08-26-2021 Us abdominal real ti me w/image limited Long Hines Carlos DO Work Phone: Start: 07-11-2021 Mri any jt upper ext remity w/o contrast matrl Stewart Nur APRN - DRAG CAR RACER Work Phone: Start: 07-11-2021 Radiologic exam knee complete 4/more views Stewart Nur APRN - DRAG CAR RACER Work Phone: Start: 03-08-2021 Radex shoulder compl ete minimum 2 views Demetrio Luu MD Work Phone: Start: 03-08-2021 Radiologic exam ches t 2 views Demetrio Luu MD Work Phone: Start: 02-01-2020 Lipid 1996 panel - S tristan or Plasma Devon Peterson Work Phone: Start: 11-22-1995 Tonsillectomy ADRIÁN S EFFENS PRESS OPERATOR [employer]IST Cholecystectomy ADRIÁN SEFF ENS PRESS OPERATOR [employer] SPECIALIST Plan of Treatment Date Care Activity Detail Author Start: 2059 RSV Immunization for Adults (1 - 1-dose 75+ series) RSV Immunization for Adults (1 - 1-dose 75+ series) [facility] [employer] Start: 2044 RSV Immunization age d 60 or older (1 - 1-dose 60+ series) RSV Immunization aged 60 or older (1 - 1-dose 60+ series) [facility] [employer] Start: 2034 Shingles Vaccine (1 of 2) Shingles V accine (1 of 2) [facility] Work Phone: Start: 2034 Zoster Vaccines (1 of 2) Zoster Vacc kristy (1 of 2) [facility] [employer] Start: 08-23-2026 Diabetes: Estimated Glomerular Filtration Rate for Kidney Health Diabetes: Estimated Glomerular Filtration Rate for Kidney Health [facility] [employer] Start: 10-01-2025 End: 01-01-2026 XR Finger - left 2 Views [facility] [employer] Work Phone: Comment on above: Expected: 10/01/2025 , Expires: 01/01/2026 Once for 1 Occurrenc es starting 10/01/2025 until 10/01/2025 Start: 08-06-2025 X-ray of cervical spine Cerv Spine 2 or 3 Views [facility] Start: 08-06-2025 XR Cervical spine 2 or 3 Views [facility] Start: 08-06-2025 Patient discharge [facility] Start: 07-23-2025 COVID-19 Vaccine ( season) COVID-19 Vaccine () [facility] Start: 07-23-2025 Influenza vaccination Influenza Vacc ine (#1) [facility] Start: 05-23-2025 Following clinical pathway protocol [facility] Start: 04-01-2025 Diabetes: Estimated Glomerular Filtration Rate for Kidney Health Diabetes: Estimated Glomerular Filtration Rate for Kidney Health [facility] Start: 02-05-2025 Dstr nrolytc agnt parverteb fct addl crvcl/thora DESTROY C/TH FACET JNT ADDL [facility] Start: 02-05-2025 Dstr nrolytc agnt parverteb fct sngl crvcl/thora DESTROY CERV/THOR FACET JNT [facility] Start: 02-05-2025 Fluoroscopic guidance O.R. Fluoro fo r C-Arm [facility] Start: 02-05-2025 X-ray of cervical spine Cerv Spine 4 or 5 Views [facility] Start: 02-05-2025 Patient discharge [facility] Start: 07-23-2024 COVID-19 Vaccine ( season) COVID-19 Vaccine ( season) [facility] Start: 07-23-2024 Influenza vaccination Influenza Vacc ine (#1) [facility] Start: 02-07-2024 Fluoroscopic guidance O.R. Fluoro fo r C-Arm [facility] Start: 02-07-2024 X-ray of lumbar spin e, two or three views Lumbar Spine 2 or 3 Views [facility] Start: 02-07-2024 Patient discharge [facility] Start: 07-23-2023 COVID-19 Vaccine ( season) COVID-19 Vaccine ( season) [facility] Start: 07-23-2023 Influenza vaccination Influenza Vacc ine (#1) [facility] Start: 05-10-2023 Fluoroscopic guidance O.R. Fluoro fo r C-Arm [facility] Start: 05-10-2023 X-ray of cervical spine Cerv Spine 4 or 5 Views [facility] Start: 05-10-2023 Patient discharge [facility] Start: 01-11-2023 Njx dx/ther sbst int rlmnr crv/thrc w/img gdn NJX INTERLAMINAR CRV/THRC [facility] Start: 01-11-2023 Radiography of spine [facility] Start: 01-11-2023 Patient discharge [facility] Start: 07-16-2022 Hemoglobin A1c measurement Diabetes: Hemoglobin A1C [facility] Start: 10-16-2021 Hemoglobin A1c measurement A1C test (Diabetic or Prediabetic) [facility] Start: 09-22-2021 COVID-19 Vaccine (3 - Booster for Moderna series) COVID-19 Vaccine (3 - Booster for Moderna series) [facility] Start: 09-11-2021 End: 09-11-2021 Patient encounter procedure 09/11/2021 Appointment General Surgery Philip Doran MD [address], [place], [address] [place], [place] [id number] [facility] General Surgery Start: 09-10-2021 End: 09-10-2021 Patient encounter procedure 09/10/2021 Office Visit Family Long Thompson, DO [address] [place] [address] [phone] [facility] Start: 09-01-2021 End: 09-01-2021 Patient encounter procedure 09/01/2021 Office Visit Family Long Thompson, DO [address] [place] [address] [phone] [facility] Start: 08-06-2021 End: 08-06-2021 Patient encounter procedure 08/06/2021 Office Visit Family Long Thompson, DO [address] [place] [address] [phone] [facility] Start: 07-23-2021 Influenza vaccination [facility] Work Phone: Start: 06-17-2021 COVID-19 Vaccine (3 - Moderna series) COVID-19 Vaccine (3 - Moderna series) [facility] Start: 03-26-2021 Hemoglobin A1c measurement A1C test (Diabetic or Prediabetic) [facility] Work Phone: Start: 01-31-2021 Lipid panel [facility] Start: 01-19-2020 End: 01-19-2020 Office Visit 01/19/2020 Office Visit Family Medicine Long Gonzalez Flora, [address] [address] [phone] [facility] Start: 07-23-2019 Influenza vaccination Flu vaccine (# 1) [facility] Work Phone: Start: 08-20-2007 DTaP/Tdap/Td Vaccine s (1 - Tdap) DTaP/Tdap/Td Vaccines (1 - Tdap) [facility] Start: 2003 DTaP/Tdap/Td vaccine (1 - Tdap) DTaP/Tdap/Td vaccine (1 - Tdap) [facility] Start: 2003 Hepatitis B vaccine (1 of 3 - Risk 3-dose series) Hepatitis B vaccine (1 of 3 - Risk 3-dose series) [facility] Start: 2003 Hepatitis B Vaccines (1 of 3 - 19+ 3-dose series) Hepatitis B Vaccines (1 of 3 - 19+ 3-dose series) [facility] Start: 2003 Pneumococcal Vaccine : Pediatrics (0 to 5 Years) and At-Risk Patients (6 to 49 Years) (1 of 2 - PCV) Pneumococcal Vaccine: Pediatrics (0 to 5 Years) and At-Risk Patients (6 to 49 Years) (1 of 2 - PCV) [facility] Start: 2002 Diabetes: Urine Albumin-Creatinine Ratio for Kidney Health Diabetes: Urine Albumin-Creatinine Ratio for Kidney Health [facility] Start: 2002 Diabetic microalbumi venkatesh test Diabetic microalbuminuria test [facility] Work Phone: Start: 2002 Diabetic retinal exam Diabetic retin al exam [facility] Start: 2002 Hepatitis C screening S [facility] Start: 2002 Urine screening for protein Diabetic microalbuminuria test [facility] Start: 2000 COVID-19 Vaccine (1) COVID-19 Vaccin e (1) [facility] Work Phone: Start: 1999 HIV screen HIV screen [facility] Work Phone: Start: 1999 HIV screening HIV screen [facility] Start: 1997 Varicella vaccination Varicell a Vaccines (1 of 2 - 13+ 2-dose series) [facility] Start: 1996 Depression Monitoring Depression Mon itoring [facility] Start: 1996 Depresssion Monitoring Depresssion M onitoring [facility] Start: 1995 DTaP/Tdap/Td vaccine (1 - Tdap) DTaP/Tdap/Td vaccine (1 - Tdap) [facility] Work Phone: Start: 1994 Diabetic foot examination [facility] Start: 1994 Diabetic retinal exam Diabetic retin al exam [facility] Work Phone: Start: 1994 Glaucoma screening Diabetes: R etinopathy Screening [facility] Start: 1994 Preventive dental service Diabetes: Dental Exam [facility] Start: 1990 Pneumococcal 0-64 ye ars Vaccine (1 - PCV) Pneumococcal 0-64 years Vaccine (1 - PCV) [facility] Start: 1990 Pneumococcal 0-64 ye ars Vaccine (1 of 1 - PPSV23) Pneumococcal 0-64 years Vaccine (1 of 1 - PPSV23) [facility] Work Phone: Start: 1990 Pneumococcal 0-64 ye ars Vaccine (1 of 2 - PPSV23) Pneumococcal 0-64 years Vaccine (1 of 2 - PPSV23) [facility] Start: 1990 Pneumococcal Vaccine : Pediatrics (0 to 5 Years) and At-Risk Patients (6 to 64 Years) (1 - PCV) Pneumococcal Vaccine: Pediatrics (0 to 5 Years) and At-Risk Patients (6 to 64 Years) (1 - PCV) [facility] Start: 1990 Pneumococcal Vaccine : Pediatrics (0 to 5 Years) and At-Risk Patients (6 to 64 Years) (1 of 2 - PCV) Pneumococcal Vaccine: Pediatrics (0 to 5 Years) and At-Risk Patients (6 to 64 Years) (1 of 2 - PCV) [facility] Start: 1985 MMR Vaccines (1 of 1 - Standard series) MMR Vaccines (1 of 1 - Standard series) [facility] Start: 1985 Varicella vaccination Varicell a Vaccines (1 of 2 - 2-dose childhood series) [facility] Start: 1985 Varicella vaccine (1 of 2 - 2-dose childhood series) Varicella vaccine (1 of 2 - 2-dose childhood series) [facility] Start: 1984 Hepatitis B Vaccines (1 of 3 - 3-dose series) Hepatitis B Vaccines (1 of 3 - 3-dose series) [facility] Start: 1984 Hepatitis C screening Hepatitis C sc reen [facility] Start: 1984 HIV screening HIV Screening [facility] He alth Blood glucose - POCT [facility] Work Phone: Comment on above: As Needed until disc ontinued starting 09/11/2021 4X Daily (AC & HS) u ntil discontinued starting 09/11/2021 End: 09-11-2021 Intermittent pulse oximetry Pulse Oximetry Spot Check Respiratory Care Routine One Time for 1 Occurrences starting 09/11/2021 until 09/11/2021 [facility] Work Phone: Comment on above: One Time for 1 Occur rences starting 09/11/2021 until 09/11/2021 Nasal Cannula Oxygen Nasal Cannu la Oxygen Respiratory Care Routine As Needed until discontinued starting 09/11/2021 [facility] Work Phone: Comment on above: As Needed until disc ontinued starting 09/11/2021 Nonrebreather mask oxygen Nonreb reather mask oxygen Respiratory Care Routine As Needed until discontinued starting 09/11/2021 [facility] Work Phone: Comment on above: As Needed until disc ontinued starting 09/11/2021 Oxygen therapy [[facility] Data Set] [facility] Work Phone: Comment on above: As Needed until disc ontinued starting 09/11/2021 Daily until disconti nued starting 09/11/2021 Patient referral [facility] Work Phone: Spirometry panel Incentive amalia metry Respiratory Care Routine Q1H PRN until discontinued starting 09/11/2021 [facility] Work Phone: Comment on above: Q1H PRN [...] Immunizations Immunization Date Immunization Notes Care Provider Fa [facility] 09-18-2023 influenza virus vaccine, unspecified formulation DR LUIS EDEN DO [facility] 09-14-2022 influenza virus vaccine, unspecified formulation Devon Peterson DO Work Phone: [facility] 08-01-2021 influenza virus vaccine, unspecified formulation FRANK SMITH DO [facility] 04-22-2021 COVID-19, Moderna, P F, 100mcg/0.5mL Stewart Tokie [employer]AG [employer]ACER Work Phone: [facility] Work Phone: 03-25-2021 COVID-19, Moderna, P F, 100mcg/0.5mL Stewart Tokie [employer] - [employer]AG CAR RACER Work Phone: [facility] Work Phone: 09-20-2020 influenza virus vaccine, unspecified formulation FRANK SMITH DO [facility] 08-10-2017 influenza virus vaccine, unspecified formulation FRANK SMITH DO [facility] Payers Date Payer Category Payer Self-pay [id number] 2022 Medicaid HMO [facility] MEDICA[facility] ODM [id number] 2022 Unknown [id number] 2019 Private Health Insurance [facility] xxxxxxxxx 2019-Present [phone] [address] [place] [address] xxxxxxxxx [id number] 2019 Private Health Insurance [id number]. [id number] 2019 Unknown 2016 Unknown [id number] 2011 Medicaid [id number] 2011 Private Health Insurance [id number] 1984 Unknown [id number] 2.16.840.1.201566.3.579.2. 717 1984 Unknown [id number] 2.16.840.1.052620.3.579.2. 356 1984 Unknown [id number] 2.16.840.1.092238.3.579.2. 627 1984 Unknown [id number] 2.16.840.1.054184.3.579.2. 627 1984 Unknown [id number] 2.16.840.1.327332.3.579.2. 1984 Unknown [id number] 2.16.840.1.698281.3.579.2 1984 Unknown [id number] 2.16.840.1.250260.3.579.2 1984 Unknown [id number] 2.16.840.1.809350.3.579.2 1984 Unknown [id number] 2.16.840.1.496380.3.579.2. 1984 Unknown [id number] 2.16.840.1.160328.3.579.2 1984 Unknown [id number] 2.16.840.1.102735.3.579.2 1984 Unknown [id number] 2.840.1.274877.3.579.2 1984 Unknown [id number] 2.16840.1.618603.3.579.2 1984 Unknown [id number] 2.840.1.852719.3.579.2 1984 Unknown [id number] 2.16.840.1.438437.3.579.2 1984 Unknown [id number] 2.16840.1.166726.3.579.2 1984 Unknown [id number] 2.16840.1.743647.3.579.2 1984 Unknown [id number] 2.16840.1.784460.3.579.2 1984 Unknown [id number] 2.16840.1.088325.3.579.2 1984 Unknown [id number] 2.16840.1.482370.3.579.2 1984 Unknown [id number] 2.16.840.1.195464.3.579.2. 627 1984 Unknown [id number] 2.16.840.1.671668.3.579.2. 627 1984 Unknown [id number] 2.16.840.1.702907.3.579.2. 627 1984 Unknown [id number] 2.16.840.1.784624.3.579.2. 62 1984 Unknown [id number] 2.16.840.1.292397.3.579.2. 627 1984 Unknown [id number] 2.16.840.1.067688.3.579.2. 1984 Unknown [id number] 2.16.840.1.974094.3.579.2. 1984 Unknown [id number] 2.16.840.1.439207.3.579.2. 627 Unknown [id number] 2.16.840.1.544422.3.579.2. 462 Unknown [id number] 2.16.840.1.540991.3.579.2. 462 Unknown [id number] 2.16.840.1.918839.3.579.2. 462 Unknown [id number] 2.16840.1.808178.3.579.2. 462 Unknown [id number] 2.16.840.1.519315.3.579.2. 462 Unknown [id number] 2.16.840.1.875117.3.579.2. 462 Unknown [id number] 2.16.840.1.522272.3.579.2. 462 Social History Date Type Detail Facility Start: 12-27-2019 End: 06-26-2024 Tobacco smoking status [facility] Never smoker [facility] Work Phone: Start: 12-27-2019 End: 08-23-2025 Alcohol intake Ex-drinker (finding) [facility] Work Phone: Start: 1985 Sex Assigned At Not on file [facility] Work Phone: Start: 12-27-2019 End: 03-08-2021 Tobacco use and exposure Never used [facility] Start: 01-19-2020 End: 06-11-2021 History SDOH Alcohol Frequency 1 [employer] Work Phone: Start: 01-19-2020 History SDOH Social Connections Get Together 5 [employer] Work Phone: Start: 01-19-2020 History SDOH Social Connections Membership 2 [employer] Work Phone: Start: 01-19-2020 End: 06-11-2021 History SDOH Physical Activity MPS 3 [employer] Work Phone: Start: 04-27-2022 End: 05-07-2022 Exposure to SARS-CoV-2 (event) Not sure [facility] Sex Assigned At [facility] Start: 02-26-2022 End: 02-26-2022 Tobacco smoking status NHIS Unknown if ever smoked [facility] Start: 1985 Sex Assigned At Male [facility] Start: 11-10-2022 End: 08-23-2025 History of Social function [facility] [employer] Start: 11-10-2022 End: 08-23-2025 Tobacco use panel [facility] How often to you hav e a drink containing alcohol? Never [facility] How many standard dr inks containing alcohol do you have on a typical day? Patient does not drink [facility] Start: 06-20-2010 End: 06-22-2022 Sex Male (finding) [facility] Medical Equipment Procedure Code Equipment Code Equipment Original Text Equipment Identifier Dates 1 each by In Vit ro route daily As needed. E11.9 [id number] Start: 08-13-2021 1 each by Does n ot apply route 3 times daily [id number] Start: 07-18-2021 See Instructions , Dx: E11.9 Test AC and HS, # 1 EA, 11 Refill(s), Pharmacy: [id number] Diabetes mellitus type 2 in obese 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 due to type 2 diabetes... Start: 05-14-2022 See Instructions , Dx: E11.9 Test AC and HS, # 1 EA, 11 Refill(s), Pharmacy: [address], Diabetes mellitus type 2 in obese 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 due to type 2 diabetes... Start: 05-14-2022 See Instructions , Dx: E11.9 Test AC and HS, # 1 EA, 11 Refill(s), Pharmacy: [address], Diabetes mellitus type 2 in obese 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 due to type 2 diabetes... Start: 05-14-2022 See Instructions , Dx: E11.9 Test AC and HS, # 1 EA, 11 Refill(s), Pharmacy: [address], Diabetes mellitus type 2 in obese 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 due to type 2 diabetes mellitus, 180, cm, 05/14/22 9:29:00 EDT, Height, 116 Start: 05-14-2022 See Instructions , Dx: E11.9 Test AC and HS, # 1 EA, 11 Refill(s), Pharmacy: [address], Diabetes mellitus type 2 in obese 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 due to type 2 diabetes mellitus, 180, cm, 05/14/22 9:29:00 EDT, Height, 116 Start: 05-14-2022 See Instructions , Dx: E11.9 Test AC and HS, # 1 EA, 11 Refill(s), Pharmacy: [address], Diabetes mellitus type 2 in obese 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 due to type 2 diabetes mellitus, 180, cm, 05/14/22 9:29:00 EDT, Height, 116 Start: 05-14-2022 See Instructions , Dx: E11.9 Test AC and HS, # 1 EA, 11 Refill(s), Pharmacy: [address], Diabetes mellitus type 2 in obese 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 due to type 2 diabetes mellitus, 180, cm, 05/14/22 9:29:00 EDT, Height, 116 Start: 05-14-2022 See Instructions , Dx: E11.9 Test AC and HS, # 1 EA, 11 Refill(s), Pharmacy: [address], Diabetes mellitus type 2 in obese 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 due to type 2 diabetes mellitus, 180, cm, 05/14/22 9:29:00 EDT, Height, 116 Start: 05-14-2022 See Instructions , Dx: E11.9 Test AC and HS, # 1 EA, 11 Refill(s), Pharmacy: [address], Diabetes mellitus type 2 in obese 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 due to type 2 diabetes mellitus, 180, cm, 05/14/22 9:29:00 EDT, Height, 116 Start: 05-14-2022 See Instructions , Dx: E11.9 Test AC and HS, # 1 EA, 11 Refill(s), Pharmacy: [address], Diabetes mellitus type 2 in obese 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 due to type 2 diabetes mellitus, 180, cm, 05/14/22 9:29:00 EDT, Height, 116 Start: 05-14-2022 See Instructions , Dx: E11.9 Test AC and HS, # 1 EA, 11 Refill(s), Pharmacy: [address], Diabetes mellitus type 2 in obese 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 due to type 2 diabetes mellitus, 180, cm, 05/14/22 9:29:00 EDT, Height, 116 Start: 05-14-2022 See Instructions , Dx: E11.9 Test AC and HS, # 1 EA, 11 Refill(s), Pharmacy: [address], Diabetes mellitus type 2 in obese 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 due to type 2 diabetes mellitus, 180, cm, 05/14/22 9:29:00 EDT, Height, 116 Start: 05-14-2022 See Instructions , Dx: E11.9 Test AC and HS, # 1 EA, 11 Refill(s), Pharmacy: [address], Diabetes mellitus type 2 in obese 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 due to type 2 diabetes mellitus, 180, cm, 05/14/22 9:29:00 EDT, Height, 116 Start: 05-14-2022 See Instructions , Dx: E11.9 Test AC and HS, # 1 EA, 11 Refill(s), Pharmacy: [address], Diabetes mellitus type 2 in obese 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 due to type 2 diabetes mellitus, 180, cm, 05/14/22 9:29:00 EDT, Height, 116 Start: 05-14-2022 See Instructions , Dx: E11.9 Test AC and HS, # 1 EA, 11 Refill(s), Pharmacy: [address], Diabetes mellitus type 2 in obese 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 due to type 2 diabetes mellitus, 180, cm, 05/14/22 9:29:00 EDT, Height, 116 Start: 05-14-2022 See Instructions , Dx: E11.9 Test AC and HS, # 1 EA, 11 Refill(s), Pharmacy: [address], Diabetes mellitus type 2 in obese 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 due to type 2 diabetes mellitus, 180, cm, 05/14/22 9:29:00 EDT, Height, 116 Start: 05-14-2022 See Instructions , Dx: E11.9 Test AC and HS, # 1 EA, 11 Refill(s), Pharmacy: [address], Diabetes mellitus type 2 in obese 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 due to type 2 diabetes mellitus, 180, cm, 05/14/22 9:29:00 EDT, Height, 116 Start: 05-14-2022 See Instructions , Dx: E11.9 Test AC and HS, # 1 EA, 11 Refill(s), Pharmacy: [address], Diabetes mellitus type 2 in obese 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 due to type 2 diabetes mellitus, 180, cm, 05/14/22 9:29:00 EDT, Height, 116 Start: 05-14-2022 See Instructions , Dx: E11.9 Test AC and HS, # 1 EA, 11 Refill(s), Pharmacy: [address], Diabetes mellitus type 2 in obese 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 due to type 2 diabetes mellitus, 180, cm, 05/14/22 9:29:00 EDT, Height, 116 Start: 05-14-2022 See Instructions , Dx: E11.9 Test AC and HS, # 1 EA, 11 Refill(s), Pharmacy: [address], Diabetes mellitus type 2 in obese 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 due to type 2 diabetes mellitus, 180, cm, 05/14/22 9:29:00 EDT, Height, 116 Start: 05-14-2022 See Instructions , Dx: E11.9 Test AC and HS, # 1 EA, 11 Refill(s), Pharmacy: [address], Diabetes mellitus type 2 in obese 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 due to type 2 diabetes mellitus, 180, cm, 05/14/22 9:29:00 EDT, Height, 116 Start: 05-14-2022 See Instructions , Dx: E11.9 Test AC and HS, # 1 EA, 11 Refill(s), Pharmacy: [address], Diabetes mellitus type 2 in obese 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 due to type 2 diabetes mellitus, 180, cm, 05/14/22 9:29:00 EDT, Height, 116 Start: 05-14-2022 See Instructions , Dx: E11.9 Test AC and HS, # 1 EA, 11 Refill(s), Pharmacy: [address], Diabetes mellitus type 2 in obese 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 due to type 2 diabetes mellitus, 180, cm, 05/14/22 9:29:00 EDT, Height, 116 Start: 05-14-2022 Goals Date Patient Goal Desired Activity /State Functional Status Date Assessment Result Facility 08-23-2025 Total score [AUDIT-C] 0 08/23/20 25 8:21 PM EDT Tiffanie Bonilla RN [facility] 05-23-2025 Functional status Patient Activity Ambula sylvie [facility] Work Phone: 03-20-2025 Functional Status Standard Safet y ID band on, Allergy Band on, Call device within reach, Bed in low position, Wheels locked, Upper/Half-Length side-rails up, Bedside Cart Locked, Visitor at bedside, Safety level maintained [facility] 08-10-2024 Functional Status Awake, Resting [facility] 06-29-2024 Functional Status Assistive Device None A [facility] 02-27-2024 Functional Status ID band on [facility] 05-10-2023 Functional status Ambulates [facility] Work Phone: [facility] Mental Status Date Assessment Result Facility 08-06-2025 Cognitive function Voice/Name [facility] Work Phone: 05-23-2025 Cognitive function Voice/Name [facility] Work Phone: 03-20-2025 Mental Status Oriented x 4 [facility] 02-05-2025 Cognitive function Voice/Name [facility] Work Phone: 08-10-2024 Mental Status Oriented x 4 [facility] 06-29-2024 Mental Status Orientation Oriented x 4 [facility] 02-27-2024 Mental Status Orientation Oriented x 4 [facility] 02-07-2024 Cognitive function Voice/Name [facility] Work Phone: 05-10-2023 Cognitive function Voice/Name [facility] Work Phone: 01-11-2023 Cognitive function Voice/Name [facility] Work Phone: Clinical Notes 03-08-2021 to 10-01-2025 Ernestine Marquez MD - 10/01/2025 11:30 AM ESTAddendum Note - Ernestine Marquez MD - 10/01/2025 11:30 AM ESTAddendum Note - Ernestine Marquez MD - 10/01/2025 11:30 AM EST Note Date & Type Note Facility 10-01-2025 History of Present illness Narrative Images from the original note were not included. [facility] [address] [place] [address] [place] [address] Dept: [phone] Dept Chief Complaint Patient presents with New Patient Left Hand, Long Finger Pain Subjective History of Present Illness: Leonel Lake is a 39 y.o. right hand dominant male who presents today for evaluation of left long finger pain. States this issue has been going on for over a year. Notes the PIP joint of the long finger has been swelling, is not going down and flares up with pain for over a year. Says when he bend the finger, there is sharp pain around the joint. Mentions it feels tight and can't fully make a fist. Notes he didn't do anything to injury the finger. Location: PIP joint Onset: 1 year, chronic Injury: no Quality: aching, pressure, tight/stiff, and sharp Mechanical symptoms: no Radiation of symptoms: no Severity: 9/10 at rest and 9/10 at worst Exacerbating factor(s): repetitive use, gripping, and pinching Relieving factor(s): rest and activity modification Timing: all day Imaging to date: X-Ray Completed 09/23/24 Treatment to date: PT/OT/HEP: no Ice: yes, helpful Heat: yes, helpful Medications: Tylenol: yes, helpful NSAIDs: no Oral steroids: allergic to Prednisone Muscle relaxants: no Nerve medications: no Targeted injections: none Assistive devices: none Prior surgery: no Occupation: Disabled Objective There were no vitals taken for this visit. Physical Exam: General: Alert, well appearing, no acute distress. Respiratory: Breathing comfortably on room air. No respiratory distress. Skin: Warm, dry, intact. No visible rashes or erythema overlying area of focused exam. Physical Exam Musculoskeletal: Left hand: Swelling, deformity (Slight flexion contracture) and tenderness (Diffuse mild) present. Decreased range of motion (PIP long finger). Normal strength. Normal capillary refill. Normal pulse. Hands: Comments: Collateral ligaments intact, volar plates intact, extension and flexion tendons intact External Notes No pertinent notes available Labs Lab Results Component Value Date HGBA1C 9.5 (A) 07/16/2021 Lab Results Component Value Date CREATININE 0.88 08/23/2025 Imaging Images reviewed with patient today I have personally reviewed the images pertinent to the appointment today X-Ray Completed 09/23/24 LEFT HAND: CLINICAL INDICATION: Pain. TECHNIQUE: PA, Lat, and oblique COMPARISON: 08/27/2023. FINDINGS: There is no fracture or dislocation. No arthritic change is identified. No bone lesion is identified. There is no soft tissue abnormality. IMPRESSION: No acute osseous abnormality left hand. EMG/NCT N/A Procedure No procedures completed today Assessment Diagnosis Plan 1. Finger joint swelling, left XR fingers 2+ views left Ambulatory referral to Occupational Therapy Plan Unclear etiology for the initial injury as the patient does not recall any dislocation or sprain today we discussed the treatment spectrum of this illness/condition. From no change in treatment, to conservative treatments, to aggressive treatments including injections and surgery, and answered questions. We have today selected to proceed with formal physical therapy. Physical therapy will work on muscle range of motion, efficiency, endurance, strength, coordination ,balance and sequencing of neuro-muscular contractions. Physical therapy will set up the schedule of your visits, how many times a week, and will indicate when follow-up is appropriate. If the current course does not prove to be effective over the short term future, schedule a follow-up appointment to discuss and select an alternate course of therapy including possibly of injection, further imaging or surgical referral. No follow-ups on file. Ernestine Marquez MD 10/01/2025 10:44 AM Please note that portions of this note may have been completed with voice recognition software. Documentation reviewed prior to signing but minor errors in senior java programmer analyst may have occurred. documented in this encounter [facility] 10-01-2025 Miscellaneous Notes Addended by: ERNESTINE MARQUEZ on: 10/01/2025 12:59 PM Modules accepted: Level of Service documented in this encounter [facility] 10-01-2025 Note Addended by: ERNESTINE MIKE on: 10/01/2025 12:59 PM Modules accepted: Level of Service [facility] 10-01-2025 Note Addended by: ERNESTINE MIKE on: 10/01/2025 12:59 PM Modules accepted: Level of Service [facility] 10-01-2025 Note Addended by: ERNESTINE MIKE on: 10/01/2025 12:59 PM Modules accepted: Level of Service [facility] 09-06-2025 Note Received outside ref erral from Dwayne to see the pt for DIP joint pain and swelling third digit LEFT hand, Dwayne referral scanned to [facility] for the pt to call back. Left my direct phone number. Please schedule with PA on jarrell team. [facility] 08-23-2025 Emergency department Note Pt unable to urinate at this time. Given urinal and aware doctor ordered urine specimen. [facility] 08-23-2025 Emergency department Note Pt unable to urinate at this time. Given urinal and aware doctor ordered urine specimen. [facility] ED EMERGENCY DEPARTMENT ENCOUNTER Pt Name: Leonel Lake Birthdate 1985 Date of evaluation: 08/23/2025 Provider: Terrell Enriquez MD CHIEF COMPLAINT Chief Complaint Patient presents with Abdominal Pain Nausea Back Pain HISTORY OF PRESENT ILLNESS (Location/Symptom, Timing/Onset,Context/Setting, Quality, Duration, Modifying Factors, Severity) Note limiting factors. Leonel Lake is a 39 y.o. male who presents to the emergency department with abdominal pain. Patient reports it feels similar to when he had his gallbladder removed. No chest pain no short of breath no fevers chills no urinary symptoms. No lightheadedness or dizziness. Which is kind of epigastric but crampy throughout the whole abdomen. HPI Historian is the patient Nurse's notes for past medical history, surgical history, social history were reviewed. Medications and allergies reviewed. PAST MEDICAL HISTORY Medical History[1] SURGICALHISTORY Surgical History[2] CURRENT MEDICATIONS Previous Medications ATORVASTATIN (LIPITOR) 20 [...] (TAKE WITH A PROBIOTIC) CONTINUOUS GLUCOSE SENSOR (Eruptive GamesSTYLE GOGO 2 SENSOR) [facility] apply 1 SENSOR TO BACK OF ARM ONCE EVERY 14 DAYS TO MONITOR GLUCOSE DAPAGLIFLOZIN (FARXIGA) 5 MG TABLET Take by mouth. DULAGLUTIDE (TRULICITY SC) Inject under the skin. ESCITALOPRAM (LEXAPRO) 10 MG TABLET 10 mg. ETANERCEPT (ENBREL) 50 MG/ML INJECTION Inject 50 mg under the skin. FARXIGA 10 MG TABLET Take 10 mg by mouth daily. FENOFIBRATE (TRICOR) 145 MG TABLET Take 145 mg by mouth daily. FLUTICASONE (FLONASE ALLERGY RELIEF) 50 MCG/ACT NASAL SPRAY Dose = 1 spray(s), Nostril, each, qDay, # 16 gram(s), 11 Refill(s), Pharmacy: [id number], Acute sinusitis, 177.8, cm, 04/05/24 14:15:00 EDT, Height, kg, 04/05/24 14:16:00 EDT, Dosing Weight GABAPENTIN (NEURONTIN) 400 MG CAPSULE 400 mg. GLIMEPIRIDE (AMARYL) 2 MG TABLET See Instructions, Take 2 tablets (4mg) by mouth with breakfast and 1 tablet (2mg) with dinner, # 90 tab(s), 3 Refill(s), Pharmacy: [facility], 179.6, cm, 04/13/24 10:38:00 EDT, Height, [...] TIZANIDINE (ZANAFLEX) 4 MG TABLET 4 mg. Penicillins, Prednisone, and Seroquel [quetiapine] FAMILY HISTORY Family History[3] SOCIAL HISTORY Social History[4] SCREENINGS PHYSICAL EXAM (up to 7 for level 4, 8 or more for level 5) @EDTRIAGEVSS@ Appropriate PPE including n 95, gown, gloves, goggles where worn when appropriate with this patient. Physical Exam General awake alert appropriate nontoxic. Heart is regular. Lungs are clear. Abdomen vague discomfort but no rebound or guarding. No peritoneal findings. Extremities no edema. DIAGNOSTIC RESULTS RADIOLOGY: Interpretation per the Radiologist below, if availableat the time of this note: CT abdomen pelvis wo IV contrast Final Result 1. Possible enteritis.. Report Dictated on Electronically Signed By: Perez Mclaughlin MD Electronically Signed Date/Time: 08/23/2025 9:45 PM EDT ED BEDSIDE ULTRASOUND: Performed by ED Physician - none LABS: Labs Reviewed COMPREHENSIVE METABOLIC PANEL - Abnormal Result Value SODIUM 140 POTASSIUM 3.6 CHLORIDE 107 CARBON DIOXIDE 23 ANION GAP 10 UREA NITROGEN 10 CREATININE 0.88 GLUCOSE 141 (*) CALCIUM 9.3 AST (SGOT) 24 ALT 34 ALKALINE PHOSPHATASE 92 ALBUMIN 3.9 BILIRUBIN, TOTAL 0.5 TOTAL PROTEIN 7.1 eGFR >90.0 CBC WITH AUTO DIFFERENTIAL - Abnormal Auto WBC 6.2 RBC 4.95 Hemoglobin 14.7 Hematocrit 40.8 MCV 82.4 MCH 29.7 MCHC 36.0 RDW 13.1 Platelets 226 MPV 9.2 nRBC 0.0 Neutrophils Relative 58.3 Lymphocytes Relative 24.1 Monocytes Relative 8.3 Eosinophils Relative 8.5 (*) Basophils Relative 0.6 Immature Grans % 0.2 Neutrophils Absolute 3.6 Lymphocytes Absolute 1.5 Monocytes Absolute 0.5 Eosinophils Absolute 0.5 Basophils Absolute 0.0 Immature Grans Absolute 0.0 COMPLETE URINALYSIS WITH REFLEX TO CULTURE - Abnormal Color, Urine Light Yellow Clarity, Urine Clear pH, Urine 6.0 Leukocytes, Urine Negative Nitrite, Urine Negative Protein, Urine Negative Glucose, Urine >1,000 (*) Bilirubin, Urine Negative Ketones, Urine Negative Urobilinogen, Urine Normal Blood, Urine Negative SPECIFIC GRAVITY OF URINE (NUMERIC) 1.042 (*) Narrative: A specimen with <=10 WBC is not consistent with inflammation. This specimen will not reflex to a urine culture. LIPASE - Normal LIPASE 42 All other labs were within normal range or not returned as of thisdictation. EMERGENCYDEPARTMENT COURSE and DIFFERENTIAL DIAGNOSIS/MDM: Vitals: Vitals: 08/23/252018 BP: (!) 137/79 BP Location: Right arm Patient Position: Sitting Pulse: 86 Resp: 16 Temp: 36.4 C (97.5 F) SpO2: 97% Weight: 109 kg (240 lb) Height: 1.803 m (5' 11) Medical Decision Making Problems Addressed: Abdominal pain of multiple sites: complicated acute illness or injury Amount and/or Complexity of Data Reviewed Labs: ordered. Radiology: ordered. Risk Prescription drug management. EMERGENCY DEPARTMENT COURSE and DIFFERENTIAL DIAGNOSIS/MDM: Vitals: Vitals: 08/23/252018 BP: (!) 137/79 BP Location: Right arm Patient Position: Sitting Pulse: 86 Resp: 16 Temp: 36.4 C (97.5 F) SpO2: 97% Weight: 109 kg (240 lb) Height: 1.803 m (5' 11) The patient presented with a chief complaint of abdominal pain. The differential diagnosis associated with this patient's presentation includes kidney stone colitis bowel obstruction electrolyte disturbance pancreatitis. Our workup consisted of ordering/reviewing blood work CT. Patient given 1 L fluid 15 of Toradol for Zofran. Patient does likely have enteritis. Please likely viral illness. Patient be sent home on Zofran and Bentyl. No signs of bowel obstruction. Follow-up with primary care physician 1 week return here if any problems or concerns. I do not believe antibiotics are needed. Repeat evaluation no rebound or guarding. ED Course as of 08/23/252232 Mica Aug 23, [id number] Normal lipase normal sodium potassium. Normal creatinine. Normal white blood cell count. Normal hemoglobin. [GS] 2148 CT shows no stone but does show enteritis. [GS] 2232 Urine showed elevated glucose otherwise no signs of infection. [GS] ED Course User Index [GS] Terrell Enriquez MD Diagnoses as of 08/23/252232 Abdominal pain of multiple sites Diagnostics considered but not indicated based on history, physical, testing: None External records reviewed: Patient records reviewed seen primary care 06/18/2025 for type 2 diabetes. Radiologic diagnostics interpreted by me: film images such as CT, Ultrasound and MRI are read by the radiologist. Plain radiographic images are visualized and preliminarily interpreted by the emergency physician with the below findings: CT abdomen pelvis per radiology no stone shows signs of enteritis Discussions with other clinicians: None Chronic conditions impacting care: Bipolar schizophrenia biliary colic gastritis diabetes Social determinants of health affecting care: None Shared decision making: Patient agrees to treatment plan ED Medications managed: Medications ondansetron (Zofran) injection 4 mg (4 mg IntraVENous Given 08/23/252053) ketorolac (Toradol) injection 15 mg (15 mg IntraVENous Given 08/23/252053) sodium chloride 0.9 % bolus 1,000 mL (0 mL IntraVENous Stopped 08/23/252212) Prescription drugs prescribed: Bentyl and Zofran CRITICAL CARE TIME Total Critical Care time was 0 minutes, excluding separately reportable procedures. There was a high probability of clinically significant/life threatening deterioration in the patient's condition which required my urgentintervention. PROCEDURES: Unless otherwise noted below, none Procedures IMPRESSION 1. Abdominal pain of multiple sites DISPOSITION/PLAN DISPOSITION Discharge 08/23/2025 10:18:24 PM PATIENT REFERRED TO: [address] [facility] [id number] In 1 week DISCHARGE MEDICATIONS: New Prescriptions DICYCLOMINE (BENTYL) 10 MG CAPSULE Take 1 capsule (10 mg) by mouth 4 times daily as needed (Abdominal pain) for up to 4 days. ONDANSETRON ODT (ZOFRAN-ODT) 4 MG DISINTEGRATING TABLET Take 1 tablet (4 mg) by mouth every 8 hours as needed for nausea or vomiting for up to 7 days. @[facility]([id number]:LAST:1)@ (Comment: Please notethis report has been produced using speech recognition software and may contain errors related to that system including errors in grammar, punctuation, and spelling, as well as words and phrases that may be inappropriate.If there is any questions or concerns please feel free to contact the dictating provider for clarification). 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 Dunbar Psoriasis 1999 Dr. Rabago Schizophrenia ([facility]) 2007 Type 2 diabetes mellitus ([facility]) 12/2019 [2] Past Surgical History: Procedure Laterality Date CHOLECYSTECTOMY 09/11/2021 Dr. Doran COLONOSCOPY 2013 [place] TONSILLECTOMY (HISTORICAL) UPPER GASTROINTESTINAL ENDOSCOPY 2014 Dr Dunbar [3] Family History Problem Relation Name Age of Onset Asthma Mother Stewart No Known Problems Father not close Arthritis Mother Stewart No Known Problems Brother Corey No Known Problems Paternal Grandmother Hypotension Maternal Grandfather Stroke Maternal Grandfather Cancer Maternal Grandmother No Known Problems Paternal Grandfather [4] Social History Socioeconomic History Marital status: Single Tobacco Use Smoking status: Never Smokeless tobacco: Never Vaping Use Vaping status: Never Used Substance and Sexual Activity Alcohol use: Not Currently Drug use: Never Social History Narrative Single, lives with Mother, Stewart. No children. NS or ETOH use. Disabled since 2007 due to mental health ds Social Drivers of Health Financial Resource Strain: Medium Risk (06/11/2021) Received from [facility] Overall Financial Resource Strain (CARDIA) Difficulty of Paying Living Expenses: Somewhat hard Food Insecurity: No Food Insecurity (06/11/2021) Received from [facility] Hunger Vital Sign Worried About Running Out of Food in the Last Year: Never true Ran Out of Food in the Last Year: Never true Transportation Needs: No Transportation Needs (01/19/2020) Received from [facility] PRAPARE - Transportation Lack of Transportation (Medical): No Lack of Transportation (Non-Medical): No Physical Activity: Insufficiently Active (01/19/2020) Received from [facility] Exercise Vital Sign Days of Exercise per Week: 1 day Minutes of Exercise per Session: 30 min Stress: Stress Concern Present (01/19/2020) Received from [facility] [employer] - Occupational Stress Questionnaire Feeling of Stress : Very much Social Connections: Unknown (01/19/2020) Received from [facility] Social Connection and Isolation Panel [NHANES] Frequency of Social Gatherings with Friends and Family: More than three times a week Attends Ep[employer] Services: Never Active Member of Clubs or Organizations: No Attends Club or Organization Meetings: Never Terrell Enriquez MD 08/23/252232 Pt to ER with complaint of upper abd pain x 1 day with nausea, no vomiting. Today has lower back pain as well. Rates pain sharp and constant 10/10. States he has had his gallbladder removed and this feels similar to that pain. Denies chest pain, shortness of breath, cough, fever, chills. Pt ambulatory on arrival with steady gait. Alerty and oriented x 4. Skin warm and dry. Respirations even and unlabored. Call light in reach documented in this encounter [facility] 08-23-2025 Emergency department Triage note Pt to ER with complaint of upper abd pain x 1 day with nausea, no vomiting. Today has lower back pain as well. Rates pain sharp and constant 10/10. States he has had his gallbladder removed and this feels similar to that pain. Denies chest pain, shortness of breath, cough, fever, chills. Pt ambulatory on arrival with steady gait. Alerty and oriented x 4. Skin warm and dry. Respirations even and unlabored. Call light in reach [facility] 08-23-2025 Physician Emergency department Note [facility] ED EMERGENCY DEPARTMENT ENCOUNTER Pt Name: Leonel Lake Birthdate 1985 Date of evaluation: 08/23/2025 Provider: Terrell Enriquez MD CHIEF COMPLAINT Chief Complaint Patient presents with Abdominal Pain Nausea Back Pain HISTORY OF PRESENT ILLNESS (Location/Symptom, Timing/Onset,Context/Setting, Quality, Duration, Modifying Factors, Severity) Note limiting factors. Leonel Lake is a 39 y.o. male who presents to the emergency department with abdominal pain. Patient reports it feels similar to when he had his gallbladder removed. No chest pain no short of breath no fevers chills no urinary symptoms. No lightheadedness or dizziness. Which is kind of epigastric but crampy throughout the whole abdomen. HPI Historian is the patient Nurse's notes for past medical history, surgical history, social history were reviewed. Medications and allergies reviewed. PAST MEDICAL HISTORY Medical History[1] SURGICALHISTORY Surgical History[2] CURRENT MEDICATIONS Previous Medications ATORVASTATIN (LIPITOR) 20 [...] CONTINUOUS GLUCOSE SENSOR (FREESTYLE GOGO 2 SENSOR) [facility] [place] apply 1 SENSOR TO BACK OF ARM ONCE EVERY 14 DAYS TO MONITOR GLUCOSE DAPAGLIFLOZIN (FARXIGA) 5 MG TABLET Take by mouth. DULAGLUTIDE (TRULICITY SC) Inject under the skin. ESCITALOPRAM (LEXAPRO) 10 MG TABLET 10 mg. ETANERCEPT (ENBREL) 50 MG/ML INJECTION Inject 50 mg under the skin. FARXIGA 10 MG TABLET Take 10 mg by mouth daily. FENOFIBRATE (TRICOR) 145 MG TABLET Take 145 mg by mouth daily. FLUTICASONE (FLONASE ALLERGY RELIEF) 50 MCG/ACT NASAL SPRAY Dose = 1 spray(s), Nostril, each, qDay, # 16 gram(s), 11 Refill(s), Pharmacy: [facility] #[id number], Acute sinusitis, 177.8, cm, 04/05/24 14:15:00 EDT, Height, kg, 04/05/24 14:16:00 EDT, Dosing Weight GABAPENTIN (NEURONTIN) 400 MG CAPSULE 400 mg. GLIMEPIRIDE (AMARYL) 2 MG TABLET See Instructions, Take 2 tablets (4mg) by mouth with breakfast and 1 tablet (2mg) with dinner, # 90 tab(s), 3 Refill(s), Pharmacy: [facility] [place], 179.6, cm, 04/13/24 10:38:00 EDT, Height, kg, [...] TIZANIDINE (ZANAFLEX) 4 MG TABLET 4 mg. Penicillins, Prednisone, and Seroquel [quetiapine] FAMILY HISTORY Family History[3] SOCIAL HISTORY Social History[4] SCREENINGS PHYSICAL EXAM (up to 7 for level 4, 8 or more for level 5) @[facility]@ Appropriate PPE including n 95, gown, gloves, goggles where worn when appropriate with this patient. Physical Exam General awake alert appropriate nontoxic. Heart is regular. Lungs are clear. Abdomen vague discomfort but no rebound or guarding. No peritoneal findings. Extremities no edema. DIAGNOSTIC RESULTS RADIOLOGY: Interpretation per the Radiologist below, if availableat the time of this note: CT abdomen pelvis wo IV contrast Final Result 1. Possible enteritis.. Report Dictated on Electronically Signed By: Perez Mclaughlin MD Electronically Signed Date/Time: 08/23/2025 9:45 PM EDT ED BEDSIDE ULTRASOUND: Performed by ED Physician - none LABS: Labs Reviewed COMPREHENSIVE METABOLIC PANEL - Abnormal Result Value SODIUM 140 POTASSIUM 3.6 CHLORIDE 107 CARBON DIOXIDE 23 ANION GAP 10 UREA NITROGEN 10 CREATININE 0.88 GLUCOSE 141 (*) CALCIUM 9.3 AST (SGOT) 24 ALT 34 ALKALINE PHOSPHATASE 92 ALBUMIN 3.9 BILIRUBIN, TOTAL 0.5 TOTAL PROTEIN 7.1 eGFR >90.0 CBC WITH AUTO DIFFERENTIAL - Abnormal Auto WBC 6.2 RBC 4.95 Hemoglobin 14.7 Hematocrit 40.8 MCV 82.4 MCH 29.7 MCHC 36.0 RDW 13.1 Platelets 226 MPV 9.2 nRBC 0.0 Neutrophils Relative 58.3 Lymphocytes Relative 24.1 Monocytes Relative 8.3 Eosinophils Relative 8.5 (*) Basophils Relative 0.6 Immature Grans % 0.2 Neutrophils Absolute 3.6 Lymphocytes Absolute 1.5 Monocytes Absolute 0.5 Eosinophils Absolute 0.5 Basophils Absolute 0.0 Immature Grans Absolute 0.0 COMPLETE URINALYSIS WITH REFLEX TO CULTURE - Abnormal Color, Urine Light Yellow Clarity, Urine Clear pH, Urine 6.0 Leukocytes, Urine Negative Nitrite, Urine Negative Protein, Urine Negative Glucose, Urine >1,000 (*) Bilirubin, Urine Negative Ketones, Urine Negative Urobilinogen, Urine Normal Blood, Urine Negative SPECIFIC GRAVITY OF URINE (NUMERIC) 1.042 (*) Narrative: A specimen with <=10 WBC is not consistent with inflammation. This specimen will not reflex to a urine culture. LIPASE - Normal LIPASE 42 All other labs were within normal range or not returned as of thisdictation. EMERGENCYDEPARTMENT COURSE and DIFFERENTIAL DIAGNOSIS/MDM: Vitals: Vitals: 08/23/252018 BP: (!) 137/79 BP Location: Right arm Patient Position: Sitting Pulse: 86 Resp: 16 Temp: 36.4 C (97.5 F) SpO2: 97% Weight: 109 kg (240 lb) Height: 1.803 m (5' 11) Medical Decision Making Problems Addressed: Abdominal pain of multiple sites: complicated acute illness or injury Amount and/or Complexity of Data Reviewed Labs: ordered. Radiology: ordered. Risk Prescription drug management. EMERGENCY DEPARTMENT COURSE and DIFFERENTIAL DIAGNOSIS/MDM: Vitals: Vitals: 08/23/252018 BP: (!) 137/79 BP Location: Right arm Patient Position: Sitting Pulse: 86 Resp: 16 Temp: 36.4 C (97.5 F) SpO2: 97% Weight: 109 kg (240 lb) Height: 1.803 m (5' 11) The patient presented with a chief complaint of abdominal pain. The differential diagnosis associated with this patient's presentation includes kidney stone colitis bowel obstruction electrolyte disturbance pancreatitis. Our workup consisted of ordering/reviewing blood work CT. Patient given 1 L fluid 15 of Toradol for Zofran. Patient does likely have enteritis. Please likely viral illness. Patient be sent home on Zofran and Bentyl. No signs of bowel obstruction. Follow-up with primary care physician 1 week return here if any problems or concerns. I do not believe antibiotics are needed. Repeat evaluation no rebound or guarding. ED Course as of 08/23/252232 Mica Aug 23, [id number] Normal lipase normal sodium potassium. Normal creatinine. Normal white blood cell count. Normal hemoglobin. [GS] 2148 CT shows no stone but does show enteritis. [GS] 2232 Urine showed elevated glucose otherwise no signs of infection. [GS] ED Course User Index [GS] Terrell Enriquez MD Diagnoses as of 08/23/252232 Abdominal pain of multiple sites Diagnostics considered but not indicated based on history, physical, testing: None External records reviewed: Patient records reviewed seen primary care 06/18/2025 for type 2 diabetes. Radiologic diagnostics interpreted by me: film images such as CT, Ultrasound and MRI are read by the radiologist. Plain radiographic images are visualized and preliminarily interpreted by the emergency physician with the below findings: CT abdomen pelvis per radiology no stone shows signs of enteritis Discussions with other clinicians: None Chronic conditions impacting care: Bipolar schizophrenia biliary colic gastritis diabetes Social determinants of health affecting care: None Shared decision making: Patient agrees to treatment plan ED Medications managed: Medications ondansetron (Zofran) injection 4 mg (4 mg IntraVENous Given 08/23/252053) ketorolac (Toradol) injection 15 mg (15 mg IntraVENous Given 08/23/252053) sodium chloride 0.9 % bolus 1,000 mL (0 mL IntraVENous Stopped 08/23/252212) Prescription drugs prescribed: Bentyl and Zofran CRITICAL CARE TIME Total Critical Care time was 0 minutes, excluding separately reportable procedures. There was a high probability of clinically significant/life threatening deterioration in the patient's condition which required my urgentintervention. PROCEDURES: Unless otherwise noted below, none Procedures IMPRESSION 1. Abdominal pain of multiple sites DISPOSITION/PLAN DISPOSITION Discharge 08/23/2025 10:18:24 PM PATIENT REFERRED TO: [address] [facility] [phone] In 1 week DISCHARGE MEDICATIONS: New Prescriptions DICYCLOMINE (BENTYL) 10 MG CAPSULE Take 1 capsule (10 mg) by mouth 4 times daily as needed (Abdominal pain) for up to 4 days. ONDANSETRON ODT (ZOFRAN-ODT) 4 MG DISINTEGRATING TABLET Take 1 tablet (4 mg) by mouth every 8 hours as needed for nausea or vomiting for up to 7 days. @[id number]:LAST:1)@ (Comment: Please notethis report has been produced using speech recognition software and may contain errors related to that system including errors in grammar, punctuation, and spelling, as well as words and phrases that may be inappropriate.If there is any questions or concerns please feel free to contact the dictating provider for clarification). Terrell Enriquez MD (electronically signed) Attending Emergency Physician Terrell Enriquez MD 08/23/252218 [1] Past Medical History: Diagnosis Date Bipolar 1 disorder ([facility]) 2007 MsMarlon, CASE SPECIALIST, Argelia- disabled Depression Gastritis [address] Dunbar Psoriasis 1999 Dr. Rabago Schizophrenia ([facility]) 2007 Type 2 diabetes mellitus ([facility]) 12/2019 [2] Past Surgical History: Procedure Laterality Date CHOLECYSTECTOMY 09/11/2021 Dr. Doran COLONOSCOPY 2014 [place] TONSILLECTOMY (HISTORICAL) UPPER GASTROINTESTINAL ENDOSCOPY 2014 Dr Dunbar [3] Family History Problem Relation Name Age of Onset Asthma Mother Stewart No Known Problems Father not close Arthritis Mother Stewart No Known Problems Brother Corey No Known Problems Paternal Grandmother Hypotension Maternal Grandfather Stroke Maternal Grandfather Cancer Maternal Grandmother No Known Problems Paternal Grandfather [4] Social History Socioeconomic History Marital status: Single Tobacco Use Smoking status: Never Smokeless tobacco: Never Vaping Use Vaping status: Never Used Substance and Sexual Activity Alcohol use: Not Currently Drug use: Never Social History Narrative Single, lives with Mother, Stewart. No children. NS or ETOH use. Disabled since 2007 due to mental health ds Social Drivers of Health Financial Resource Strain: Medium Risk (06/11/2021) Received from [facility] Overall Financial Resource Strain (CARDIA) Difficulty of Paying Living Expenses: Somewhat hard Food Insecurity: No Food Insecurity (06/11/2021) Received from [facility] Hunger Vital Sign Worried About Running Out of Food in the Last Year: Never true Ran Out of Food in the Last Year: Never true Transportation Needs: No Transportation Needs (01/19/2020) Received from [facility] PRAPARE - Transportation Lack of Transportation (Medical): No Lack of Transportation (Non-Medical): No Physical Activity: Insufficiently Active (01/19/2020) Received from [facility] Exercise Vital Sign Days of Exercise per Week: 1 day Minutes of Exercise per Session: 30 min Stress: Stress Concern Present (01/19/2020) Received from [facility] [employer] - Occupational Stress Questionnaire Feeling of Stress : Very much Social Connections: Unknown (01/19/2020) Received from [facility] Social Connection and Isolation Panel [NHANES] Frequency of Social Gatherings with Friends and Family: More than three times a week Attends Ep[employer]opalian Services: Never Active Member of Clubs or Organizations: No Attends Club or Organization Meetings: Never Terrell Enriquez MD 08/23/252232 [facility] 08-08-2025 Note Vitals: -Weight: 248.6 lbs History & Physical: Leonel returns to [facility] for follow up on diabetes management. Last A1c was well controlled at 6.1%. Have been following more closely due to Trulicity initiation and titration. Does have a history of Crohn's disease so have been monitoring GI tolerability. Did state that Crohn's has been well controlled which was reason Trulicity was comfortably initiated. He is currently managed on Trulicity 1.5mg weekly and Farxiga 10mg daily. Did meet with PCP last week due to stomach pain. Appears that labs came back normal and PCP did not seem to think GI upset was related to Trulicity use. Leonel does wear a Libre3 system to monitor his sugars at home. Past Medical History: Problems Active Epigastric pain Abdominal pain in male Swelling of finger, left Facial pain HLD (hyperlipidemia) Psoriasis Extrapyramidal disorder Family history of thyroid disease Schizophrenia Low back pain with right-sided sciatica 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 due to type 2 diabetes mellitus Hx of Crohn s disease Chronic back pain greater than 3 months duration BMI 34.0-34.9,adult Diabetes mellitus type 2 in obese Medications: atorvastatin: 20 mg = 1 tab(s), Oral, qDay benztropine: 1 mg = 1 tab(s), Oral, qDay bifidobacterium-lactobacillus: 1 cap(s), Oral, qDay, may substitute for generic insurance preferred probiotic. I would like him to be on this d/t being on clindamycin. cholecalciferol: 125 mcg = 1 cap(s), Oral, qDay dapagliflozin: 10 mg = 1 tab(s), Oral, qDay DME: See Instructions, Dx: E11.9Test AC and HS DME: See Instructions, Libre3 [place] Use reader to scan sensor to monitor sugars DME: See Instructions, Libre3+ Sensors #2 sensors. Apply sensor to arm once every 14 days to monitor glucose dulaglutide: 1.5 mg, Subcutaneous, qWeek, rotate injection sites escitalopram: 10 mg = 1 tab(s), Oral, qDay fenofibrate: 145 mg = 1 tab(s), Oral, qDay fluticasone nasal: 1 spray(s), Nostril, each, qDay gabapentin: 400 mg = 1 cap(s), Oral, BID haloperidol: 10 mg = 1 tab(s), Oral, qHS hydrOXYzine: 25 mg = 1 cap(s), Oral, Once meloxicam: 15 mg = 1 tab(s), Oral, qDay metoprolol: 25 mg = 1 tab(s), Oral, qDay, Do not crush or chew (controlled release) omeprazole: 40 mg = 1 cap(s), Oral, qDay omeprazole: 40 mg = 1 cap(s), Oral, qDay, Take omeprazole BID x7 days, already takes this medication daily, plan to add an extra dose in the evenings. ondansetron: 4 mg = 1 tab(s), Oral, q8h risankizumab: q4wk sucralfate: 1 gram(s) = 1 tab(s), Oral, achs tamsulosin: 0.4 mg = 1 cap(s), Oral, qDay tiZANidine: 4 mg = 1 tab(s), Oral, q8h Labs: -POC B mg/dLPOC HbA1c: 6.1% (06/13/25) Diabetes Labs No qualifying data available. Diabetes Type I Labs Cholesterol: 138 mg/dL (02/23/25) HDL Cholesterol: 39 mg/dL Low (02/23/25) LDL Cholesterol: 74 mg/dL (02/23/25) Triglycerides: 124 mg/dL (02/23/25) Creatinine Lvl (s): 0.93 mg/dL (08/02/25) TSH: 3.3 mcIU/mL (02/23/25) Hgb A1c: 6 % (02/23/25) Yearly Diabetic Exams: - Foot Exam: Completed November 2024 - Eye Exam: Completed November 2024 Blood Glucose Monitoring: Has been wearing the Gogo monitor. Results are listed below for the last 14 days: Very High (>250): 1% High (181-250): 16% Target Range (70-180): 83% Low (54-69): 0% Very Low (<54): 0% Average Glucose: 142 mg/dL Glucose Management Indicator: 6.7% % Time CGM is Active: 92% Gogo report attached to document for additional information. Acute Complications: -Hypoglycemia: Does have sporadic low blood sugars, but seem to occur after a large spike in blood sugar. Based on Gogo he is able to correct blood sugar readings. Has a few low sugars in a 2 week time span. Nutrition & Physical Activity: Spent majority of visit discussing nutrition management. Leonel seems to have a very carb heavy diet. He is also noticing significant appetite suppression and concerned he is not eating much throughout the day. Attempted to have patient do food recall for typical day of eating and states that he cant remember what he eats. Did mention cereals for breakfast and lunch and dinner varied. Would like to get him in with the dietitian, but he declined at this time. Stressed the importance of smaller more frequent meals focusing on high protein, fiber, and whole foods. Assessment and Plan: Reviewed Leonel's Gogo report and overall blood sugars remain fairly stable. Does have the occasional spike >250 on his sugars but this is likely attributed to poor diet choices. Would like to get him in with the dietitian, but he declined at this time. Concern for not eating consistently with the Trulicity and told Leonel if he is not making improvements with diet choices discussed today he will need to highly consider meeting with the dietitian. States the GI upset from last week has subsided. Unclear if this was due to a GI bug vs Trulicity. Per PCP note she was not thinking that it was related to the Trulicity. Will continue to monitor. No changes to medications were made today and explained to Leonel that his main focus needs to be on diet changes. He is agreeable to the plan and will return in 6 weeks when his next A1c is due. Instructed him to call with any return of GI side effects. Total time spent caring for the patient today was 25 minutes. This includes time spent before the visit reviewing the chart (lab results, past visit documentation, reviewing CGM data etc.), time spent during the visit, and time spend after the visit on documentation, etc. Digitally Signed by Charley Sterling PharmD on 08/08/2025 11:23 AM [facility] 08-06-2025 Procedure note [facility] 07-11-2025 Note Vitals: - Weight: 252.8 lbs History & Physical: [facility] for follow up on diabetes management. Last A1c was well controlled at 6.1% (06/13/25). He is currently managed on Trulicity 0.75 mg weekly, Farxiga 10 mg daily, and metformin 1000 mg BID. Leonel uses a Libre3 reader to monitor his sugars at home. Goal for Leonel is to use Trulicity to get him off of some of his oral diabetes medications. At last visit glimepiride was discontinued. Past Medical History: Problems Active Abdominal pain in male Swelling of finger, left Facial pain HLD (hyperlipidemia) Psoriasis Extrapyramidal disorder Family history of thyroid disease Schizophrenia Low back pain with right-sided sciatica 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 due to type 2 diabetes mellitus Hx of Crohn s disease Chronic back pain greater than 3 months duration BMI 34.0-34.9,adult Diabetes mellitus type 2 in obese Medications: atorvastatin: 20 mg = 1 tab(s), Oral, qDay benztropine: 1 mg = 1 tab(s), Oral, qDay bifidobacterium-lactobacillus: 1 cap(s), Oral, qDay, may substitute for generic insurance preferred probiotic. I would like him to be on this d/t being on clindamycin. cholecalciferol: 125 mcg = 1 cap(s), Oral, qDay dapagliflozin: 10 mg = 1 tab(s), Oral, qDay DME: See Instructions, Dx: E11.9Test AC and HS DME: See Instructions, Libre3 [place] Use reader to scan sensor to monitor sugars DME: See Instructions, Libre3+ Sensors #2 sensors. Apply sensor to arm once every 14 days to monitor glucose escitalopram: 10 mg = 1 tab(s), Oral, qDay fenofibrate: 145 mg = 1 tab(s), Oral, qDay fluticasone nasal: 1 spray(s), Nostril, each, qDay gabapentin: 400 mg = 1 cap(s), Oral, BID glimepiride: See Instructions, Take 2 tablets (4mg) by mouth with breakfast and 1 tablet (2mg) with dinner haloperidol: 10 mg = 1 tab(s), Oral, qHS hydrOXYzine: 25 mg = 1 cap(s), Oral, Once meloxicam: 15 mg = 1 tab(s), Oral, qDay metFORMIN: 1,000 mg = 2 tab(s), Oral, BID metoprolol: 25 mg = 1 tab(s), Oral, qDay, Do not crush or chew (controlled release) omeprazole: 40 mg = 1 cap(s), Oral, qDay risankizumab: q4wk tamsulosin: 0.4 mg = 1 cap(s), Oral, qDay tiZANidine: 4 mg = 1 tab(s), Oral, q8h Labs: - POC B mg/dLPOC HbA1c: 6.1% (06/13/25) Diabetes Type I Labs Cholesterol: 138 mg/dL (02/23/25) HDL Cholesterol: 39 mg/dL Low (02/23/25) LDL Cholesterol: 74 mg/dL (02/23/25) Triglycerides: 124 mg/dL (02/23/25) Creatinine Lvl (s): 0.98 mg/dL (05/11/25) TSH: 3.3 mcIU/mL (02/23/25) Hgb A1c: 6 % (02/23/25) Yearly Diabetic Exams: - Foot Exam: Completed November 2024 - Eye Exam: Completed November 2024 Blood Glucose Monitoring: Has been wearing the Gogo monitor. Results are listed below for the last 14 days. Very High (>250): 0% High (181-250): 3% Target Range (70-180): 96% Low (54-69): 1% Very Low (<54): 0% Average Glucose: 116 mg/dL Glucose Management Indicator: 6.1% % Time CGM is Active: 93% Gogo report is attached to document for additional information. Acute Complications: - Hypoglycemia: States he gets headaches when he feels like his sugar is low. Does do fingerstick to confirm low readings. Usually corrects with orange juice. Educated patient on adding snack with protein after correcting with orange juice, so that he does not drop low again. - Hyperglycemia: Denies signs or symptoms Nutrition & Physical Activity: Denies changes to diet. Started walking 3-4 days per week. Assessment and Plan: Reviewed Gogo report in office with Leonel today. Main concern is the multiple low blood sugars that he has. He states that he does get symptomatic with these. States that he is tolerating the Trulicity very well and had no complaints of GI symptoms today. Based on his last Gogo report, the Trulicity is working well for him. Will increase to Trulicity 1.5 mg weekly. Will stop the metformin. Educated patient that if sugars consistently run >180 mg/dL to call us and we may have to restart the metformin at a low dose. Patient agreeable to this plan. Will follow up in 4 weeks to review Gogo report with medication changes and assess if he is still having multiple low blood sugars. Encouraged patient to call with any questions or concerns prior to next visit. Total time spent caring for the patient today was 24 minutes. This includes time spent before the visit reviewing the chart (lab results, past visit documentation, etc.), time spent during the visit, and time spent after the visit on documentation, sending in prescriptions, consulting with peers, etc. Digitally Signed by Dixie Enriquez Pharmacist Student on 07/11/2025 09:23 AM [facility] 07-11-2025 Note Vitals: - Weight: 252.8 lbs History & Physical: [facility]onel [facility] for follow up on diabetes management. Last A1c was well controlled at 6.1% (06/13/25). He is currently managed on Trulicity 0.75 mg weekly, Farxiga 10 mg daily, and metformin 1000 mg BID. Leonel uses a Libre3 reader to monitor his sugars at home. Goal for Leonel is to use Trulicity to get him off of some of his oral diabetes medications. At last visit glimepiride was discontinued. Past Medical History: Problems Active Abdominal pain in male Swelling of finger, left Facial pain HLD (hyperlipidemia) Psoriasis Extrapyramidal disorder Family history of thyroid disease Schizophrenia Low back pain with right-sided sciatica 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 due to type 2 diabetes mellitus Hx of Crohn s disease Chronic back pain greater than 3 months duration BMI 34.0-34.9,adult Diabetes mellitus type 2 in obese Medications: atorvastatin: 20 mg = 1 tab(s), Oral, qDay benztropine: 1 mg = 1 tab(s), Oral, qDay bifidobacterium-lactobacillus: 1 cap(s), Oral, qDay, may substitute for generic insurance preferred probiotic. I would like him to be on this d/t being on clindamycin. cholecalciferol: 125 mcg = 1 cap(s), Oral, qDay dapagliflozin: 10 mg = 1 tab(s), Oral, qDay DME: See Instructions, Dx: E11.9Test AC and HS DME: See Instructions, Libre3 [place] Use reader to scan sensor to monitor sugars DME: See Instructions, Libre3+ Sensors #2 sensors. Apply sensor to arm once every 14 days to monitor glucose escitalopram: 10 mg = 1 tab(s), Oral, qDay fenofibrate: 145 mg = 1 tab(s), Oral, qDay fluticasone nasal: 1 spray(s), Nostril, each, qDay gabapentin: 400 mg = 1 cap(s), Oral, BID glimepiride: See Instructions, Take 2 tablets (4mg) by mouth with breakfast and 1 tablet (2mg) with dinner haloperidol: 10 mg = 1 tab(s), Oral, qHS hydrOXYzine: 25 mg = 1 cap(s), Oral, Once meloxicam: 15 mg = 1 tab(s), Oral, qDay metFORMIN: 1,000 mg = 2 tab(s), Oral, BID metoprolol: 25 mg = 1 tab(s), Oral, qDay, Do not crush or chew (controlled release) omeprazole: 40 mg = 1 cap(s), Oral, qDay risankizumab: q4wk tamsulosin: 0.4 mg = 1 cap(s), Oral, qDay tiZANidine: 4 mg = 1 tab(s), Oral, q8h Labs: - POC B mg/dLPOC HbA1c: 6.1% (06/13/25) Diabetes Type I Labs Cholesterol: 138 mg/dL (02/23/25) HDL Cholesterol: 39 mg/dL Low (02/23/25) LDL Cholesterol: 74 mg/dL (02/23/25) Triglycerides: 124 mg/dL (02/23/25) Creatinine Lvl (s): 0.98 mg/dL (05/11/25) TSH: 3.3 mcIU/mL (02/23/25) Hgb A1c: 6 % (02/23/25) Yearly Diabetic Exams: - Foot Exam: Completed November 2024 - Eye Exam: Completed November 2024 Blood Glucose Monitoring: Has been wearing the Gogo monitor. Results are listed below for the last 14 days. Very High (>250): 0% High (181-250): 3% Target Range (70-180): 96% Low (54-69): 1% Very Low (<54): 0% Average Glucose: 116 mg/dL Glucose Management Indicator: 6.1% % Time CGM is Active: 93% Gogo report is attached to document for additional information. Acute Complications: - Hypoglycemia: States he gets headaches when he feels like his sugar is low. Does do fingerstick to confirm low readings. Usually corrects with orange juice. Educated patient on adding snack with protein after correcting with orange juice, so that he does not drop low again. - Hyperglycemia: Denies signs or symptoms Nutrition & Physical Activity: Denies changes to diet. Started walking 3-4 days per week. Assessment and Plan: Reviewed Gogo report in office with Leonel today. Main concern is the multiple low blood sugars that he has. He states that he does get symptomatic with these. States that he is tolerating the Trulicity very well and had no complaints of GI symptoms today. Based on his last Gogo report, the Trulicity is working well for him. Will increase to Trulicity 1.5 mg weekly. Will stop the metformin. Educated patient that if sugars consistently run >180 mg/dL to call us and we may have to restart the metformin at a low dose. Patient agreeable to this plan. Will follow up in 4 weeks to review Gogo report with medication changes and assess if he is still having multiple low blood sugars. Encouraged patient to call with any questions or concerns prior to next visit. Total time spent caring for the patient today was 24 minutes. This includes time spent before the visit reviewing the chart (lab results, past visit documentation, etc.), time spent during the visit, and time spent after the visit on documentation, sending in prescriptions, consulting with peers, etc. Digitally Signed by Dixie Enriquez Pharmacist Student on 07/11/2025 09:23 AM [facility] 06-13-2025 Note Vitals: -Weight: 254.6 lbs History & Physical: [facility] on diabetes management and an A1c check. Last A1c was well controlled at 6%. Have offered to go out to 6 months for A1c checks with Leonel, but he requests to return every 3 months. He is currently managed on Farxiga 10mg daily, metformin 1000mg BID, and glimepiride 4mg in the morning and 2mg in the evening. He does wear a Libre3 system to monitor his sugars at home. Past Medical History: Problems Active Abdominal pain in male Swelling of finger, left Facial pain HLD (hyperlipidemia) Psoriasis Extrapyramidal disorder Family history of thyroid disease Schizophrenia Low back pain with right-sided sciatica 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 due to type 2 diabetes mellitus Hx of Crohn s disease Chronic back pain greater than 3 months duration BMI 34.0-34.9,adult Diabetes mellitus type 2 in obese Medications: atorvastatin: 20 mg = 1 tab(s), Oral, qDay benztropine: 1 mg = 1 tab(s), Oral, qDay bifidobacterium-lactobacillus: 1 cap(s), Oral, qDay, may substitute for generic insurance preferred probiotic. I would like him to be on this d/t being on clindamycin. cholecalciferol: 125 mcg = 1 cap(s), Oral, qDay dapagliflozin: 10 mg = 1 tab(s), Oral, qDay DME: See Instructions, Dx: E11.9Test AC and HS DME: See Instructions, Libre3 [place] Use reader to scan sensor to monitor sugars DME: See Instructions, Libre3+ Sensors #2 sensors. Apply sensor to arm once every 14 days to monitor glucose escitalopram: 10 mg = 1 tab(s), Oral, qDay fenofibrate: 145 mg = 1 tab(s), Oral, qDay fluticasone nasal: 1 spray(s), Nostril, each, qDay gabapentin: 400 mg = 1 cap(s), Oral, BID glimepiride: See Instructions, Take 2 tablets (4mg) by mouth with breakfast and 1 tablet (2mg) with dinner haloperidol: 10 mg = 1 tab(s), Oral, qHS hydrOXYzine: 25 mg = 1 cap(s), Oral, Once meloxicam: 15 mg = 1 tab(s), Oral, qDay metFORMIN: 1,000 mg = 2 tab(s), Oral, BID metoprolol: 25 mg = 1 tab(s), Oral, qDay, Do not crush or chew (controlled release) omeprazole: 40 mg = 1 cap(s), Oral, qDay risankizumab: q4wk tamsulosin: 0.4 mg = 1 cap(s), Oral, qDay tiZANidine: 4 mg = 1 tab(s), Oral, q8h Labs: -POC B mg/dLPOC HbA1c: 6.1% (06/13/25) Diabetes Labs No qualifying data available. Diabetes Type I Labs Cholesterol: 138 mg/dL (02/23/25) HDL Cholesterol: 39 mg/dL Low (02/23/25) LDL Cholesterol: 74 mg/dL (02/23/25) Triglycerides: 124 mg/dL (02/23/25) Creatinine Lvl (s): 0.98 mg/dL (05/11/25) TSH: 3.3 mcIU/mL (02/23/25) Hgb A1c: 6 % (02/23/25) Yearly Diabetic Exams: -Foot Exam: Completed November 2024 -Eye Exam: Completed November 2024 Blood Glucose Monitoring: Has been wearing the Gogo monitor. Results are listed below for the last 14 days: Very High (>250): 1% High (181-250): 14% Target Range (70-180): 85% Low (54-69): 0% Very Low (<54): 0% Average Glucose: 144 mg/dL Glucose Management Indicator: 6.8% % Time CGM is Active: 55% Gogo report attached to document for additional information. Acute Complications: -Hypoglycemia: Does have some sporadic low blood sugar readings. Appear to be happening early in the morning. He is able to correct these readings with orange juice. -Hyperglycemia: Denies signs or symptoms Assessment and Plan: Leonel's A1c remained under control at 6.1%. Reviewed Gogo report in office. Main concern is sporadic high and low blood sugars that he has. He states he does get symptomatic with these. Have adjusted the glimepiride in the past, but sugars will not stabilize. Does have a history of Crohn's disease, btu states this is under control. He is interested in trialing a GLP-1. Trulicity is covered with this insurance. Denies any personal or family history of MTC or MEN2. Denies any personal history of pancreatitis or gastroparesis. Will start Trulicity 0.75mg weekly and stop glimepiride. Counseled him on medication storage, administration, and side effects. All questions were answered. Instructed him to call with any significant GI upset, diarrhea, vomiting, etc. Leonel is agreeable to the plan. Will see him back in 4 weeks for follow up and to assess medication tolerability. Overall goal would be to titrate up Trulicity to get off metformin and be managed on Trulicity and Farxiga alone. Total time spent caring for the patient today was 30 minutes. This includes time spent before the visit reviewing the chart (lab results, past visit documentation, reviewing CGM data etc.), time spent during the visit, and time spend after the visit on documentation, sending in prescriptions, etc. Digitally Signed by Charley SterlingD on 06/13/2025 09:36 AM [facility] 05-23-2025 Radiology Diagnostic study note [facility] Imaging Services [address] [place] [address] 05/23/25 1725 MR#: [id number] Acct: [id number] Name: LEONEL LAKE Rep #:[id number] : 1985 39 From: Mahesh Olivares MD PCP: PATRICIA Briscoe Status:RE G [...] plaques noted 05/23/25 1728 Date _ Mahesh Sol Signature (if applicable): Date CC: PATRICIA Mata; PATRICIA Conde; Dr. Mahesh Olivares MD ~ Signed [facility] Work Phone: 05-23-2025 Radiology Diagnostic study note [facility] Imaging Services [address] [place] [id number] Cardiac Only MR#: [id number] Acct: [id number] Name: LEONEL LAKE Rep #: [id number] : 1985 M 39 From: Yazan Dailey MD PCP: PATRICIA Briscoe Status: RE G CLI Study:Limited Chest CT Cardiac Only Date of E xam: 05/23/25 Exam# [id number] Ordering Dr: Shamika Conde NP PROCEDURE: LIMITED CHEST CT CARDIAC [...] demonstrates no other significant abnormality. Reading Location: [place] [address] CC: PATRICIA Mata; PATRICIA Conde ~ International Organizer: Signed [facility] 03-20-2025 Hospital Discharge instructions Patient Education [...] you to stop. You may use an hzsv-roc-bejltxo pain medicine to control pain, unless another [...] the abscess Boil returns after getting better [id number] [employer]. [address] [place] [address]. All rights reserved. This information is not intended as a substitute for professional medical care. Always follow your healthcare professional's instructions. Follow Up Care 03/20/2025 15:51:59 With:Dentistry Address: When:2-4 days [facility] 03-20-2025 Emergency department Discharge summary Discharge Instructions Thank you for allowing [facility] to assist you with your healthcare needs. [...] Unchanged DME (DME MISCellaneous) See instructions Libre3 [place] Use reader to scan sensor to monitor [...] you to stop. You may use an njev-ntu-fiqsoyy pain medicine to control pain, unless another [...] the abscess Boil returns after getting better [phone] [employer]. [address] [place] [address], [place] [address]. All rights reserved. This information is not intended as a substitute for professional medical care. Always follow your healthcare professional's instructions. Additional Information VACCINATE! IT SAVES LIVES! Members of the community who have not yet received the COVID-19 vaccine and would like to receive it can visit one of [facility] vaccine clinics. There are many vaccine clinic locations within the [facility]. For locations and available times, please visit www.[email or web address].[email or web address]/. It is important to note that some COVID mobile vaccine clinics are held outdoors and may be canceled in rainy or stormy conditions. To learn more about pediatric vaccinations (ages 5-11), we invite you to visit the [employer] webpage. https://[email or web address].org/[email or web address]-N zzzj-Ievxgvqtfar-Wksygfqfsg-Asked-Questions .html To learn more about the COVID-19 vaccine, we invite you to visit the CDC website for a list of frequently asked questions. https://www.cdc.gov/coronavirus/2019-ncov/v accines/faq.html [facility] Patient Portal Access Instructions: Stay connected with your healthcare team and access your personal medical information anytime with the [facility] Patient Portal. If you would like a full copy of your medical records please contact the [facility] Medical Records Department Wednesday through Wednesday between 8a.m. and 4:30p.m. Please follow the directions below to access the portal: 1.Access the email account you provided upon registration to the hospital.2.Look for an invitation email from [facility].3.Open the email and access the invitation link: Accept Invitation to [facility]4.Fill in the required truong to create your account. Sign into www.[email or web address] with your username and password that you [...] you will allow to register on the [facility] Patient Portal for access to your information. You can also access the [facility] Patient Portal on the [employer]. Simply click on Health Records under Health Data and then click on the [employer] logo. HOW TO SAFELY DISPOSE OF PRESCRIPTION [...] Call your local pharmacy or go to [email or web address] to find one close to you.3.Make use of household items: Use cat litter or old coffee grounds to dispose medications if other options are not available. Mix your drugs with these household products, seal them in an airtight container and throw it into the garbage. Call [facility]: [phone] to be sure your drugs can be [...] aware that I should contact my doctor. 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 Signature: Date/Time: Relationship to Patient: Witness Name/Signature: _ Date/Time: [facility] 02-05-2025 Consult note [facility] 02-05-2025 Consult note Note Date/Time February 05, 2025 6:34am [facility] Medical Records Department [address] [place] [address] Pre-Anesthesia Evaluation 02/05/25 0625 MR#: [id number] Acct: [id number] Name: LEONEL LAKE Curyr Rep #:[id number] : 1985 39 From: Jimmie Wen MD PCP: Wanda Mata NP-C Status:RE G [facility] Y Race: C Location: [place] [address] ASA Classification* ASA Classification ASA Classification: 3 [...] and C7 Anesthesia History 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 Hx Hospitalization No 05/02/24 13:57 Any Problems [...] take am of surgery PONV PONV - nylon mender: PONV - nylon mender Female HX of Motion Sickness HX of N/V After Surgery Non-Smoker Duration of Surgery greater than 60 minutes Number of Risk Factors PONV Score Height & Weight Height & Weight: Anesthesia: Height & Weight Height 5 ft 1 in 02/05/25 05:59 Weight: 117 kg 02/05/25 05:59 Body Mass Index (BMI) 48.7 02/05/25 05:59 Respiratory Assessment Respiratory Assessment - nylon mender: Respiratory Tract Infection Hx - nylon mender Hx Respiratory Tract Infection No 05/02/24 13:57 STOP Sleep Apnea STOP Sleep Apnea - nylon mender: STOP Sleep Apnea - nylon mender Hx Hypertension No 05/02/24 13:57 Hx Sleep [...] Tobacco Use History Tobacco Use History - nylon mender: Tobacco Use History - nylon mender Tobacco Use Smoking Status Never smoker 05/02/24 13:57 Hx Tobacco Use No 05/02/24 13:57 Years Smoking Packs Smoked per Day Smoking Cessation Date was within the last 15 years Hx Smoking Cessation Date Hx Smoking Cessation Counseling Hematologic Medial History Hematologic Hx - nylon mender: 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 Specify any problems Hx of Preganancy in last 3 Months Nurse Filling Out Transfusion & Questions: Date: Time: Patient unable to answer at this time (ie. confused, unrespo /Reproduction History /Reproductive History - nylon mender: /Reproductive Hx- nylon mender Hx Now Gestational Age (in weeks): EDC: Hx Hx Para Hx Section SAB [facility] Medical History Schizophrenia Bipolar disorder Depression Anxiety [...] and no additional complaints, except as documented. 02/05/25 0634 <Electronically signed by Jimmie salguero MD> Date _ Jimmie Wen MD Cosigner Signature: Date CC: ~ Signed [facility] Work Phone: [phone] Procedure note [facility] Medical Records Department [address] [place] [address] Operative Report 02/05/25 0757 MR#: [id number] Acct: [id number] Name: LEONEL LAKE Rep #:[id number] : 1985 39 From: Marc Aquino MD PCP: PATRICIA Briscoe Status:[facility] Location: [place] [address] Operative Report (Standard) Operative Information Date of Procedure: 02/05/25 Pre-Operative Diagnosis: 1 Post-Operative Diagnosis: 1 Surgery/Procedure Performed: 1 able bodied tankerman: No Type of Anesthesia: Local MAC RN [...] 02/05/25 0759 Cosigner Signature (if applicable): CC: DRAG CAR RACERArsenioC Wanda Mata; Dr. Marc Aquino MD~ Signed [facility]03-17-2025 Consult note [facility] Medical Records Department [address] [place] [address] Pre-Anesthesia Evaluation 02/05/25 0625 MR#: [id number] Acct: [id number] Name: LEONEL LAKE Rep #:[id number] : 1985 39 From: Jimmie Wen MD PCP: PATRICIA Briscoe Status:RE G SDC Y Race: C Location: [place] [address] ASA Classification* ASA Classification ASA Classification: 3 [...] and C7 Anesthesia History 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 Hx Hospitalization No 05/02/24 13:57 Any Problems [...] take am of surgery PONV PONV - nylon mender: PONV - nylon mender Female HX of Motion Sickness HX of N/V After Surgery Non-Smoker Duration of Surgery greater than 60 minutes Number of Risk Factors PONV Score Height & Weight Height & Weight: Anesthesia: Height & Weight Height 5 ft 1 in 02/05/25 05:59 Weight: 117 kg 02/05/25 05:59 Body Mass Index (BMI) 48.7 02/05/25 05:59 Respiratory Assessment Respiratory Assessment - nylon mender: Respiratory Tract Infection Hx - nylon mender Hx Respiratory Tract Infection No 05/02/24 13:57 STOP Sleep Apnea STOP Sleep Apnea - nylon mender: STOP Sleep Apnea - nylon mender Hx Hypertension No 05/02/24 13:57 Hx Sleep [...] Tobacco Use History Tobacco Use History - nylon mender: Tobacco Use History - nylon mender Tobacco Use Smoking Status Never smoker 05/02/24 13:57 Hx Tobacco Use No 05/02/24 13:57 Years Smoking Packs Smoked per Day Smoking Cessation Date was within the last 15 years Hx Smoking Cessation Date Hx Smoking Cessation Counseling Hematologic Medial History Hematologic Hx - nylon mender: 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 Specify any problems Hx of Preganancy in last 3 Months Nurse Filling Out Transfusion & Questions: Date: Time: Patient unable to answer at this time (ie. confused, unrespo /Reproduction History /Reproductive History - nylon mender: /Reproductive Hx- nylon mender Hx Now Gestational Age (in weeks): EDC: Hx Hx Para Hx Section SAB [facility] Medical History Schizophrenia Bipolar disorder Depression Anxiety [...] and no additional complaints, except as documented. 02/05/25 0634 noemy SPARKS> Date _ Jimmie Wen MD Cosigner Signature: Date CC: ~ Signed [facility]11-02-2024 Hospital Discharge instructions* Discharge Instructions* Osman Hurtado MD - 09/23/2024 11:09 AM EDT Use the splint for the next 5 days. Schedule an appointment with your physician to reassess. Returnto the emergency department if symptoms worsen. * Attachments The following attachments cannot be sent through Care Everywhere. * Muscle and Bone Pain Discharge Instructions (Bhutanese) documented in this [facility]11-02-2024 Emergency department Note* Osman Hurtado MD - 09/23/2024 10:30 AM EDT EMERGENCY DEPARTMENT ENCOUNTER Pt Name: Leonel Lake Birthdate 1985 Date of evaluation: 09/23/2024 ED Provider: Osman Hurtado MD CHIEF COMPLAINT Chief Complaint Patient [...] the joint. He has a history of xph-kkqmmbd-mqmgsypnt diabetes. He has schizophrenia. There is no [...] Medical History: Diagnosis Date Bipolar 1 disorder ([facility]) 2007 MsMarlon, CASE SPECIALIST, Argelia- disabled Depression Gastritis [address] Dunbar Psoriasis [address] Dr. Rabago Schizophrenia ([facility]) 2007 Type 2 diabetes mellitus ([facility]) 12/2019 SURGICAL HISTORY Past Surgical History: Procedure [...] CONTINUOUS GLUCOSE SENSOR (FREESTYLE GOGO 2 SENSOR) [facility] apply 1 SENSOR TO BACK OF ARM [...] each, qDay,# 16 gram(s), 11 Refill(s), Pharmacy: [id number], Acute sinusitis, 177.8, cm, 04/05/24 14:15:00 EDT, Height, kg, 04/05/24 14:16:00 EDT, Dosing Weight GABAPENTIN (NEURONTIN) 400 MG CAPSULE 400 mg. GLIMEPIRIDE (AMARYL) 2 MG TABLET See Instructions, Take 2 tablets (4mg) by mouth with breakfast and1 tablet (2mg) with dinner, # 90 tab(s), 3 Refill(s), Pharmacy: [facility] [place], 179.6, cm, 04/13/24 10:38:00 EDT, Height, kg, [...] Resource Strain: Medium Risk (06/11/2021) Received from [facility] Overall Financial Resource Strain (CARDIA) Difficulty of Paying Living Expenses: Somewhat hard Food Insecurity: No Food Insecurity (06/11/2021) Received from [facility] Hunger Vital Sign Worried About Running Out of Food in the Last Year: Never true Ran Out of Food in the Last Year: Never true Transportation Needs: No Transportation Needs (01/19/2020) [facility] from [facility] PRAPARE - Transportation Lack of Transportation (Medical): No Lack of Transportation (Non-Medical): No Physical Activity: Insufficiently Active (01/19/2020) Received from [facility] Exercise Vital Sign Days of Exercise per Week: 1 day Minutes of Exercise per Session: 30 min Stress: Stress Concern Present (01/19/2020) Received from [facility] [employer] Friona of Occupational Health - Occupational Stress Questionnaire Feeling of Stress : Very much Social Connections: Unknown (01/19/2020) Received from [facility] Social Connection and Isolation Panel [NHANES] Frequency of Social Gatherings with Friends and Family: More than three times a week Attends Episcopalian Services: Never Active Member of Clubs or Organizations: No Attends Club or Organization Meetings: Never SCREENINGS Korey Coma Scale Best Eye Response: Spontaneous Best Verbal Response: Oriented Best Motor Response: Follows commands Korey Coma Scale Score: 15 PHYSICAL EXAM ED [...] Medications - No data to display I Osman Hurtado MD am the condenser tube tender of record. PROCEDURES: Unless otherwise noted below, [...] 11:08:08 AM PATIENT REFERRED TO: Wanda Mata, TERRY - [facility] [address] [facility] [address] In 3 days DISCHARGE MEDICATIONS: New Prescriptions [...] freeto contact the dictating provider for clarification.) Osman Hurtado MD (electronically signed) Emergency Medicine Provider Osman Hurtado MD 09/23/24 1110 documented in this [facility]11-02-2024 Physician Emergency department Note* Osman Hurtado MD - 09/23/2024 10:30 AM EDT EMERGENCY DEPARTMENT ENCOUNTER Pt Name: Leonel Lake Birthdate 1985 Date of evaluation: 09/23/2024 ED Provider: Osman Hurtado MD CHIEF COMPLAINT Chief Complaint Patient [...] the joint. He has a history of rgs-julmbcz-snhelypus diabetes. He has schizophrenia. There is no [...] Medical History: Diagnosis Date Bipolar 1 disorder (FORM[facility]) 2007 , CASE SPECIALIST, [place]- disabled Depression Gastritis [address] Dunbar Psoriasis 1999 Dr. Rabago Schizophrenia ([facility]) 2007 Type 2 diabetes mellitus ([facility]) 12/2019 SURGICAL HISTORY Past Surgical History: Procedure Laterality Date CHOLECYSTECTOMY 09/11/2021 Dr. Doran COLONOSCOPY 2014 [place] TONSILLECTOMY (HISTORICAL) UPPER GASTROINTESTINAL ENDOSCOPY 2014 Dr Dunbar CURRENT MEDICATIONS Previous Medications ATORVASTATIN [...] (TAKE WITH A PROBIOTIC) CONTINUOUS GLUCOSE SENSOR (ChartsNow (now MusicQubed)YLE GOGO 2 SENSOR) MISC apply 1 SENSOR TO BACK OF ARM [...] each, qDay,# 16 gram(s), 11 Refill(s), Pharmacy: [id number], Acute sinusitis, 177.8, cm, 04/05/24 14:15:00 EDT, Height, kg, 04/05/24 14:16:00 EDT, Dosing Weight GABAPENTIN (NEURONTIN) 400 MG CAPSULE 400 mg. GLIMEPIRIDE (AMARYL) 2 MG TABLET See Instructions, Take 2 tablets (4mg) by mouth with breakfast and1 tablet (2mg) with dinner, # 90 tab(s), 3 Refill(s), Pharmacy: [facility] [place], 179.6, cm, 04/13/24 10:38:00 EDT, Height, kg, [...] Resource Strain: Medium Risk (06/11/2021) Received from [facility] Overall Financial Resource Strain (CARDIA) Difficulty of Paying Living Expenses: Somewhat hard Food Insecurity: No Food Insecurity (06/11/2021) Received from [facility] Hunger Vital Sign Worried About Running Out of Food in the Last Year: Never true Ran Out of Food in the Last Year: Never true Transportation Needs: No Transportation Needs (01/19/2020) Received from [facility] PRAPARE - Transportation Lack of Transportation (Medical): No Lack of Transportation (Non-Medical): No Physical Activity: Insufficiently Active (01/19/2020) Received from [facility] Exercise Vital Sign Days of Exercise per Week: 1 day Minutes of Exercise per Session: 30 min Stress: Stress Concern Present (01/19/2020) Received from [facility] [employer] Friona of Occupational Health - Occupational Stress Questionnaire Feeling of Stress : Very much Social Connections: Unknown (01/19/2020) Received from [facility] Social Connection and Isolation Panel [NHANES] Frequency of Social Gatherings with Friends and Family: More than three times a week Attends Episcopalian Services: Never Active Member of Clubs or Organizations: No Attends Club or Organization Meetings: Never SCREENINGS Korey Coma Scale Best Eye Response: Spontaneous Best Verbal Response: Oriented Best Motor Response: Follows commands Korey Coma Scale Score: 15 PHYSICAL EXAM ED [...] Medications - No data to display Colt Hurtaod MD am the condenser tube tender of record. PROCEDURES: Unless otherwise noted below, [...] PATIENT REFERRED TO: Wanda Mata APRN - CASE SPECIALIST [address] [facility] [address] In 3 days DISCHARGE MEDICATIONS: New Prescriptions [...] freeto contact the dictating provider for clarification.) Osman Hurtado MD (electronically signed) Emergency Medicine Provider Osman Hurtado MD 09/23/24 1110 [facility] Discharge instructions Patient Education 08/10/2024 17:39:53 [...] for yourself at home: You may use dubq-yud-rmsnecp medicine as directed to control pain, unless another medicine was prescribed. If you have chronic liver or kidney disease or ever had a stomach ulcer or GI bleeding, talkwith your doctor before using these medicines. Aspirin should never be used in anyone under 18 years of age who is ill with a fever. It may cause severe liver damage. You may use arwn-clr-lctvdko decongestants such as phenylephrine or pseudoephedrine. But [...] pain Stiff neck Unusual drowsiness or confusion [phone] [employer]. [address] [place] [address]. All rights reserved. This information is not intended as a substitute for professional medical care. Always follow yourhealthcare professional's instructions. Follow Up Care 08/10/2024 17:19:48 With:WANDA MATA APRN-[facility] Address: [address] [place] [address] Phys[place], [place] [phone] When:2-4 days [facility] 09-19-2024 Note Discharge Instructions Thank you for allowing [facility] to assist you with your healthcare needs. [...] with WANDA MATA When:Within 2-4 days Where:[address] [facility] [place] [phone] Allergies Seroquel naproxen penicillin I got sick [...] Unchanged DME (DME MISCellaneous) See instructions [employer] [place]. Use reader to scan sensor once every 8 hours. Unchanged DME (DME MISCellaneous) See instructions Libre[employer] Sensors. Apply sensor to back of arm once every 14 days to monitor glucose. Unchanged DME (DME MISCellaneous) See instructions [employer] [place] Use reader to scan sensor to monitor [...] for yourself at home: You may use lunr-bgj-rejyoep medicine as directed to control pain, unless another medicine was prescribed. If you have chronic liver or kidney disease or ever had a stomach ulcer or GI bleeding, talkwith your doctor before using these medicines. Aspirin should never be used in anyone under 18 years of age who is ill with a fever. It may cause severe liver damage. You may use mqsn-exd-tyulvtb decongestants such as phenylephrine or pseudoephedrine. But [...] pain Stiff neck Unusual drowsiness or confusion 9031-0938 [employer]. [address] [place] [address], [place] [address]. All rights reserved. This information is not intended as a substitute for professional medical care. Always follow yourhealthcare professional's instructions. Additional Information VACCINATE! IT SAVES LIVES! Members of the community who have not yet received the COVID-19 vaccine and would like to receive it can visit one of [facility] vaccine clinics. There are many vaccine clinic locations within the [facility]. For locations and available times, please visit [email or web address]/. It is important to note that some COVID mobile vaccine clinics are held outdoors and may be canceled in rainy or stormy conditions. To learn more about pediatric vaccinations (ages 5-11), we invite you to visit the [facility] webpage. https://www.[facility].org/pages/0850-Fmqaf-Ojrepfupjvm-Kwainxvvkv-Kkkmk-Lie stions.htmlTo learn more about the COVID-19 vaccine, we invite you to visit the CDC website for a list of frequently asked questions. https://www.cdc.gov/coronavirus/2019-ncov/vaccines/faq.html [facility] Patient Portal Access Instructions: Stay connected with your healthcare team and access your personal medical information anytime with the [facility] Patient Portal. If you would like a full copy of your medical records please contact the [facility] Medical Records Department Wednesday through Wednesday between 8a.m. and 4:30p.m. Please follow the directions below to access the portal: 1.Access the email account you provided upon registration to the [facility].2.Look for an invitation email from [facility].3.Open the email and access the invitation link: Accept Invitation to [facility]4.Fill in the required truong to create your account. Sign into [email or web address] with your username and password that you [...] you will allow to register on the [facility] Patient Portal for access to your information. You can also access the [facility] Patient Portal on the [employer]. Simply click on Health Records under Databraid and then click on the [facility] logo. HOW TO SAFELY DISPOSE OF PRESCRIPTION [...] Call your local pharmacy or go to http://ICU Metrix.TYMR/4H1Mi9b to find one close to you.3.Make use of household items: Use cat litter or old coffee grounds to dispose medications if other options arenot available. Mix your drugs with these household products, seal them in an airtight container andthrow it into the garbage. Call [facility]: [phone] to be sure your drugs can be [...] aware that I should contact my doctor. 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 Signature: Date/Time: Relationship to Patient: Witness Name/Signature: Date/Time: [facility]08-08-2024 Hospital Discharge instructions Patient Education 06/29/2024 [...] or as directed by your healthcare provider [phone] [employer]. [address] [place] [address]. All rights reserved. This information is not intended as a substitute for professional medical care. Always follow yourhealthcare professional's instructions. Follow Up Care 06/29/2024 16:24:02 With:Go to emergency room if symptoms worsen Address:Unknown When:2-4 days With:WANDA AMTA Address: [address] [place] [phone] When:2-4 days [facility] 08-08-2024 Note Discharge Instructions Thank you for allowing [facility] to assist you with your healthcare needs. [...] worsen When:Within 2-4 days Follow Up with ADOLFO, WANDA A PRESS OPERATOR [employer]-CASE SPECIALIST When:Within 2-4 days Where:[address] [facility] [place] [phone] Allergies Seroquel naproxen penicillin I got sick [...] Unchanged DME (DME MISCellaneous) See instructions [employer] [place]. Use reader to scan sensor once every 8 hours. Unchanged DME (DME MISCellaneous) See instructions Lib[employer] Sensors. Apply sensor to back of arm once every 14 days to monitor glucose. Unchanged DME (DME MISCellaneous) See instructions [employer] [place] Use reader to scan sensor to monitor [...] or as directed by your healthcare provider 9570-1880 [employer]. [address] [place] [address]. All rights reserved. This information is not intended as a substitute for professional medical care. Always follow yourhealthcare professional's instructions. Additional Information VACCINATE! IT SAVES LIVES! Members of the community who have not yet received the COVID-19 vaccine and would like to receive it can visit one of [facility] vaccine clinics. There are many vaccine clinic locations within the [facility]. For locations and available times, please visit [email or web address]/. It is important to note that some COVID mobile vaccine clinics are held outdoors and may be canceled in rainy or stormy conditions. To learn more about pediatric vaccinations (ages 5-11), we invite you to visit the [facility] webpage. https://www.[facility].org/pages/4923-Xjfgm-Leazqmjisbf-Muswpykrxj-Tvfzw-Tzd stions.htmlTo learn more about the COVID-19 vaccine, we invite you to visit the CDC website for a list of frequently asked questions. https://www.cdc.gov/coronavirus/2019-ncov/vaccines/faq.html [facility] Patient Portal Access Instructions: Stay connected with your healthcare team and access your personal medical information anytime with the [facility] Patient Portal. If you would like a full copy of your medical records please contact the [facility] Medical Records Department Wednesday through Wednesday between 8a.m. and 4:30p.m. Please follow the directions below to access the portal: 1.Access the email account you provided upon registration to the [facility].2.Look for an invitation email from [facility].3.Open the email and access the invitation link: Accept [facility]itation to [facility].Fill in the required truong to create your account. Sign into www.SiNode Systems with your username and password that you [...] you will allow to register on the [facility] Patient Portal for access to your information. You can also access the [facility] Patient Portal on the [employer]. Simply click on Health Records under HealthData and then click on the [employer] logo. HOW TO SAFELY DISPOSE OF PRESCRIPTION [...] Call your local pharmacy or go to http://bit.TYMR/4F2Ol3u to find one close to you.3.Make use of household items: Use cat litter or old coffee grounds to dispose medications if other options arenot available. Mix your drugs with these household products, seal them in an airtight container andthrow it into the garbage. Call [facility]: [phone] to be sure your drugs can be [...] aware that I should contact my doctor. 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 Signature: Date/Time: Relationship to Patient: Witness Name/Signature: Date/Time: [facility]08-08-2024 Note ORIGINAL EXAMINATION: CT OF THE [...] Date: 06/29/2024 6:13:22 PM Ordering Provider: GILMA [facility]08-08-2024 Note ORIGINAL EXAMINATION: ONE XRAY VIEW [...] Date: 06/29/2024 9:32:08 PM [facility] Sinus rhythm Left anterior fascicular block Compared to previous EKG of (09/14/2023), no significant changes Electronic Signature: GILMA HYLTON DO 06/29/2024 17:40:16[facility] 05-11-2024 Emergency department Note* Shereen Interiano RN - 04/01/2024 1:[address] Herrera at , EKG complete. Pt states hx of CP with anxiety Shereen Interiano RN 04/01/247 [facility] Emergency department Note* Shereen Interiano RN - 04/01/2024 1:[address] Herrera at , EKG complete. Pt states hx of CP with anxiety Shereen Interiano RN 04/01/24116 * Triston Herrera MD - 04/01/2024 1:10 [...] Medical History: Diagnosis Date Bipolar 1 disorder ([facility]) 2007 , CASE SPECIALIST, [place]- disabled Depression Gastritis [address] Dunbar Psoriasis 1999 Dr. Rabago Schizophrenia ([facility]) 2007 Type 2 diabetes mellitus ([facility]) 12/2019 SURGICAL HISTORY Past Surgical History: Procedure [...] Never Social History Narrative Single, lives with Stewart Mullins. No children. NS or ETOH use. Disabled [...] PATIENT REFERRED TO: Wanda Mata, TERRY - CASE SPECIALIST [address] [facility] [address] Schedule an appointment as soon as possible for a visit [facility] ED [address] [place] [phone] Go to As needed, If symptoms [...] Herrera MD 04/01/24 0211 documented in this [facility]05-11-2024 Physician Emergency department Note* Triston Herrera MD [...] Medical History: Diagnosis Date Bipolar 1 disorder ([facility]) 2007 MsMarlon, CASE SPECIALIST, [place]- disabled Depression Gastritis [address] Dunbar Psoriasis 2000 Dr. Rabago Schizophrenia ([facility]) 2007 Type 2 diabetes mellitus ([facility]) 12/2019 SURGICAL HISTORY Past Surgical History: Procedure [...] primary care provider. ED Course as of 04/01/24 0257 Sat April 01, 2024 0203 Auto WBC: 6.6 [SP] 0203 HEMOGLOBIN: 15.1 [SP] 0203 eGFR: >90.0 [SP] 0203 TROPONIN I: <0.012 [SP] 0204 ECG 12 lead IMPRESSION: Sinus rhythm Left anterior fascicular block Compared to 05/07/2022- no significant changes Electronically Signed On 04-01-2024 02:04:21 EDT by Triston Herrera [SP] 020 XR chest 1 view No acute cardiopulmonary [...] PATIENT REFERRED TO: Wanda Mata APRN - CASE SPECIALIST [address] [facility] [address] Schedule an appointment as soon as possible for a visit [facility] ED [address] [facility] [phone] Go to As needed, If [...] signed) Emergency Medicine Provider Triston Herrera MD 04/01/24210 [facility] Gnzmqo31-46-2960 Hospital Discharge instructions Patient Education 02/27/2024 09:24:01 [...] cloves at drugstores. Some pharmacies carry an kqqv-yoi-ziqopzu toothache kit. This contains a paste that you can put on the exposed tooth to make it less sensitive. Put a cold pack on your jaw over the sore area to help reduce pain. You may use krul-wvr-ijluzcb medicine to ease pain, unless another medicine [...] healthcare provider Pus drains from the tooth [phone] [employer]. [address] [place] [address]. All rights reserved. This information is not intended as a substitute for professional medical care. Always follow yourhealthcare professional's instructions. Follow Up Care 02/27/2024 09:13:12 With:WANDA MATA Address: [address] [place] [phone] When:2-4 days [facility] 04-07-2024 Nurse Progress note Patient came in with swelling along right jawline. right milton has aprox 3+ edema. no respiratory issue or tongue swelling noted. Digitally Signed by Jennifer De Oliveira RN on 02/27/2024 09:27 AM [facility]04-07-2024 Emergency department Discharge summary Discharge Instructions Thank you for allowing [facility] to assist you with your healthcare needs. The following is importantdischarge information regarding your hospital visit. Diagnosis from Today's Visit Facial swelling Pain in tooth What to Do Next Instructions from Your Care Team No qualifying data available. Post Acute Orders No qualifying data available. You Need to Schedule the Following Appointments Follow Up with WANDA MATA When Within 2-4 days Where: [address] [place] [phone] Allergies Seroquel naproxen penicillin (I got sick) [...] Unchanged DME (DME MISCellaneous) See instructions [employer] [place]. Use reader to scan sensor once every [...] retail pharmacies. Medication Leaflets clindamycin (oral/injection) (adrian warner BYRON lashell) Cleocin HCl, Cleocin Pediatric, Cleocin Phosphate What [...] may report side effects to FDA at 1-243-LQH-5373. What other drugs will affect clindamycin? Sometimes it is not safe to use certain medications at the same time. Some drugs can affect your blood levels of other drugs you take, which may increase side effects or make the medications less effective. Other drugs may affect clindamycin, including prescription and yehr-jxm-lxwglnl medicines, vitamins, and herbal products. Tell your [...] to ensure that the information provided by [employer]. ('MacuCLEARtum') is accurate, up-to-date, and complete, but no guarantee is made to that effect. Drug information contained herein may be time sensitive. [employer] information has been compiled for use by healthcare practitioners and consumers in the [place] and therefore [employer] does not warrant that uses outside of the [place] are appropriate, unless specifically indicated otherwise. [employer] drug information does not endorse drugs, diagnose patients or recommend therapy. [employer] drug information isan informational resource designed to [...] effective or appropriate for any given patient. [facility] does not assume any responsibility for any aspect of healthcare administered with the aid of information [facility] provides. The information contained herein is not intended to cover all possible uses, directions, precautions, warnings, drug interactions, allergic reactions, or adverse effects. If you have questions about the drugs you are taking, check with your doctor, nurse or pharmacist. Copyright 0303-7815 [facility] LearningSupplyBetter. Version: 14.. Revision Date: 08/18/2022. Education Materials Dental Abscess [...] cloves at drugstores. Some pharmacies carry an vpxv-orw-thtirro toothache kit. This contains a paste that you can put on the exposed tooth to make it less sensitive. Put a cold pack on your jaw over the sore area to help reduce pain. You may use akzl-sjr-xxynqds medicine to ease pain, unless another medicine [...] healthcare provider Pus drains from the tooth 5528-2640 [employer]. [address] [place] [address]. All rights reserved. This information is not intended as a substitute for professional medical care. Always follow yourhealthcare professional's instructions. Additional Information VACCINATE! IT SAVES LIVES! Members of the community who have not yet received the COVID-19 vaccine and would like to receive it can visit one of [facility] vaccine clinics. There are many vaccine clinic locations within the [facility]. For locations and available times, please visit www.[email or web address]/. It is important to note that some COVID mobile vaccine clinics are held outdoors and may be canceled in rainy or stormy conditions. To learn more about pediatric vaccinations (ages 5-11), we invite you to visit the [facility] webpage. https://www.[facility].org/pages/6745-Bddyz-Ahubhhrpwza-Rssatngchj-Ppkjy-Kjf stions.htmlTo learn more about the COVID-19 vaccine, we invite you to visit the CDC website for a list of frequently asked questions. https://www.cdc.gov/coronavirus/2019-ncov/vaccines/faq.html [facility] Patient Portal Access Instructions: Stay connected with your healthcare team and access your personal medical information anytime with the [facility] Patient Portal. If you would like a full copy of your medical records please contact the [facility] Medical Records Department Wednesday through Wednesday between 8a.m. and 4:30p.m. Please follow the directions below to access the portal: 1.Access the email account you provided upon registration to the hospital.2.Look for an invitation email from [facility].3.Open the email and access the invitation link: Accept Invitation to [facility]4.Fill in the required truong to create your account. Sign into [email or web address] with your username and password that you [...] you will allow to register on the [facility] Patient Portal for access to your information. You can also access the [facility] Patient Portal on the [employer] jossy. Simply click on Health Records under [employer] and then click on the [employer] logo. HOW TO SAFELY DISPOSE OF PRESCRIPTION [...] Call your local pharmacy or go to http://bit.TYMR/2A1Cw3z to find one close to you.3.Make use of household items: Use cat litter or old coffee grounds to dispose medications if other options arenot available. Mix your drugs with these household products, seal them in an airtight container andthrow it into the garbage. Call [facility]: [phone] to be sure your drugs can be [...] aware that I should contact my doctor. 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 Signature: Date/Time: Relationship to Patient: Witness Name/Signature: Date/Time: [facility]03-18-2024 Procedure [facility]11-16-2023 Note ORIGINAL NM MYOCARDIAL SPECT STRESS/REST [...] PM Sign Date: 10/07/2023 12:40:39 PM Ordering Provider:[facility]10-12-2023 Note ORIGINAL EXAMINATION: CTA OF THE [...] Sign Date: 09/02/2023 9:59:01 AM Ordering Provider: [facility]10-06-2023 Emergency department Note* Devon Peterson DO - [...] Medical History: Diagnosis Date Bipolar 1 disorder ([facility]) 2007 MsClNettie, CASE SPECIALIST, [place]- disabled Depression Gastritis [address] Dunbar Psoriasis [address] Dr. Rabago Schizophrenia ([facility]) 2007 Type 2 diabetes mellitus ([facility]) 12/2019 SURGICAL HISTORY Past Surgical History: Procedure [...] PCP. I Devon Peterson DO am the condenser tube tender of record. PROCEDURES: Unless otherwise noted below, none Procedures FINAL IMPRESSION 1. Pain of left hand DISPOSITION Discharge 08/27/2023 08:40:01 PM PATIENT REFERRED TO: Wanda Mata, PRESS OPERATOR [employer] - CASE SPECIALIST [address] [facility] [address] [facility] ED [address] [facility] [address] DISCHARGE MEDICATIONS: There are no discharge [...] the etiology of injury documented in this [facility]10-06-2023 Emergency department Triage note* Perez Contreras RN - 08/27/2023 8:03 PM EDT Pt comes into ED with complaints of left middle finger pain. Pt states two days ago he woke up to his whole hand swelling. Pain is rated 10/10 and pt is unsure of the etiology of injury [facility] [id number] Physician Emergency department Note* Devon Peterson DO [...] Medical History: Diagnosis Date Bipolar 1 disorder ([facility]) 2007 MsClNettie, CASE SPECIALIST, [place]- disabled Depression Gastritis [address] Dunbar Psoriasis [address] Dr. Rabago Schizophrenia ([facility]) 2007 Type 2 diabetes mellitus ([facility]) 12/2019 SURGICAL HISTORY Past Surgical History: Procedure Laterality Date CHOLECYSTECTOMY 09/11/2021 Dr. Doran COLONOSCOPY Dc Dunbar TONSILLECTOMY (HISTORICAL) UPPER GASTROINTESTINAL ENDOSCOPY 2014 Dr [...] PCP. I Devon Peterson DO am the condenser tube tender of record. PROCEDURES: Unless otherwise noted below, none Procedures FINAL IMPRESSION 1. Pain of left hand DISPOSITION Discharge 08/27/2023 08:40:01 PM PATIENT REFERRED TO: Wanda Mata, TERRY - CASE SPECIALIST [address] [facility] [address] [facility] [address] [place] [address] DISCHARGE MEDICATIONS: There are no discharge [...] Emergency Medicine Provider Devon Peterson DO 08/27/232152 [facility] [id number] Note* Exam Date Time Procedure Performing Provider Status 08/13/23 11:06 AM Echocardiogram, Adult (AOH) Auth (Verified) [facility] 02-20-2023 Procedure [facility] 05-07-2022 Hospital Discharge instructions* Instructions* Saúl Shah MD - 05/07/2022 May have more symptoms when you leave here. Call your doctor for follow up * Attachments The following attachments cannot be sent through Care Everywhere. * Diarrhea (Bhutanese) documented in this [facility] Work Phone: 1(471) 572-293311-22-2021 Hospital Discharge instructions Patient Education 10/13/2021 14:14:16 [...] chest, arm, back, neck or jaw pain 0519-3088 [employer]. [address] [place] [address], [place] [address]. All rights reserved. This information is not intended as a substitute for professional medical care. Always follow yourhealthcare professional's instructions. Follow Up Care 10/13/2021 11:13:04 With:Follow up with primary care provider Address:Unknown When:2-4 days [facility] 10-21-2021 NoteOPERATIVE NOTE DATE OF PROCEDURE: 09/11/2021 SURGEON: PHILIP DORAN M.D., FACS REVENUE CYCLE MANAGER: see chart PREOPERATIVE DIAGNOSIS: chronic cholecystitis cholelithiasis [...] PACU in stable condition. Philip Doran M.D., [facility]10-14-2021 Hospital Discharge instructions* Instructions* Phuong Saunders RN [...] sent through Care Everywhere. * Cholecystectomy: Post-op (Bhutanese) * Cholecystectomy: Pre-op (Bhutanese) [facility] Work Phone: 1(732) 441-823504-17-2021 Hospital Discharge instructions* Instructions* Demetrio Luu MD - 03/08/2021 Follow-up with your regular medical doctor, follow-up with the route delivery driver you have been referred to as well, return to the ER if have worsening symptoms including pain fever redness or swelling of your shoulder or you develop chest pain shortness of breath or any new or unusual symptoms * Attachments The following attachments cannot be sent through Care Everywhere. * Chest Pain (Bhutanese) * Shoulder Pain (Bhutanese) * Joint Pain (Bhutanese) documented in this encounter[facility] Work Phone: Consult note Author Sherice Ortiz [facility] Note Date/Time February 05, 2025 8:4 2am [facility] Medical Records Department [address] [place] [address] Anesthesia Postop Eval I 02/05/25 0804 MR#: [id number] Acct: [id number] Name: LEONEL LAKE Rep #:[id number] : 1985 39 From: Sherice Ortiz CRNA PCP: Wanda Mata NP-C Status:RE G SDC Y Race: C Location: [place] [address] Anesthesia: Postop Eval I Current Vital Signs [...] document: Postop Eval 1 completed: Yes 02/05/25 0804 <Electronically signed by Sherice kaplan GANG HEAD SAW OPERATOR> Date _ Sherice Ortiz GANG HEAD SAW OPERATOR Cosigner Signature: Date CC: ~ Signed [facility] Work Phone: Evaluation + Plan note Future Appointments Appointment Date:10/22/2021 11:00:00 AM Scheduled Provider:ADRIÁN COREY Location:[place] (by [facility]) Appointment Type:[facility] Evaluation + Plan note Future Appointments Appointment Date:01/20/2022 11:00:00 AM Scheduled Provider:ADRIÁN COREY Location:[place] Appointment Type: OV Appointment Date:01/23/2022 10:00:00 AM Scheduled Provider: Location:[facility] Appointment Type:DB Diabetic Individual Visit Future Scheduled Tests Laboratory* Complete Metabolic Panel 10/22/21 [facility] Evaluation + Plan note Future Appointments Appointment Date:01/20/2022 11:00:00 AM Scheduled Provider:ADRIÁN COREY Location:[facility] Appointment Type: OV Appointment Date:01/23/2022 10:00:00 AM Scheduled Provider: Location:[facility] Appointment Type:DB Diabetic Individual Visit Diagnostic Tests Pending * TB Quantiferon, Incubated 01/07/22 Future Scheduled Tests Laboratory* Complete Metabolic Panel 10/22/21 [facility] evaluation + Plan note Future Appointments Appointment Date:08/13/2022 09:30:00 AM Scheduled Provider:SYEDA MCGARRY Location:[facility] Appointment Type:PC OV Future Scheduled Tests Laboratory* A1C Hemoglobin 03/06/22 * Lipid Profile 03/06/22 * Complete Metabolic Panel 03/06/22 * Complete Metabolic Panel 10/22/21 [facility] Evaluation + Plan note Future Appointments Appointment Date:02/12/2023 09:00:00 AM Scheduled Provider:WANDA MATA Location:[facility] Appointment Type:PC OV Appointment Date:02/12/2023 10:00:00 AM Scheduled Provider: Location:[facility] Appointment Type:DB Diabetic Individual Visit (AOH) Diagnostic Tests Pending * TB Quantiferon, Incubated 01/14/23 Future Scheduled Tests Laboratory* A1C Hemoglobin 03/06/22 * Complete Blood Count 02/10/23 * Lipid Profile 03/06/22 * Lipid Profile 02/10/23 * Complete Metabolic Panel 03/06/22 * Complete Metabolic Panel 02/10/23 [facility] evaluation + Plan note Future Appointments Appointment Date:08/13/2023 10:00:00 AM Scheduled Provider: Location:[facility] Appointment Type:DB Diabetic Individual Visit (AOH) Future Scheduled Tests Laboratory* Complete Blood Count 02/12/23 * Albumin/Creatinine Ratio, Random Urine 02/12/23 [facility] Evaluation + Plan note Future Appointments Appointment Date:10/13/2023 10:00:00 AM Scheduled Provider: Location:[facility] Appointment Type:DB Diabetic Individual Visit (AOH) Future Scheduled Tests Laboratory* Complete Blood Count 02/12/23 * Albumin/Creatinine Ratio, Random Urine 02/12/23 [facility] evaluation + Plan note Future Appointments Appointment Date:09/28/2023 10:00:00 AM Scheduled Provider:FABIAN CONDE Location:[facility] Appointment Type:CV OV Appointment Date:10/13/2023 10:00:00 AM Scheduled Provider: Location:[facility] Appointment Type:DB Diabetic Individual Visit (AOH) Diagnostic Tests Pending * Apolipoprotein B 09/02/23 * Lipoprotein (a) 09/02/23 Future Scheduled Tests Laboratory* Albumin/Creatinine Ratio, Random Urine 02/12/23 [facility] evaluation + Plan note Future Appointments Appointment Date:09/28/2023 10:00:00 AM Scheduled Provider:FABIAN CONDE Location:[facility] Appointment Type:CV OV Appointment Date:10/13/2023 10:00:00 AM Scheduled Provider: Location:[facility] Appointment Type:DB Diabetic Individual Visit (AOH) Future Scheduled Tests Laboratory* Albumin/Creatinine Ratio, Random Urine 02/12/23 [facility] Evaluation + Plan note Future Appointments Appointment Date:10/13/2023 10:00:00 AM Scheduled Provider: Location:[facility] Appointment Type:DB Diabetic Individual Visit (AOH) Appointment Date:12/29/2023 10:30:00 AM Scheduled Provider:FABIAN CONDE Location:[facility] Appointment Type:CV OV Future Scheduled Tests Laboratory* Albumin/Creatinine Ratio, Random Urine 02/12/23 [facility] Evaluation + Plan note Future Appointments Appointment Date:12/29/2023 10:30:00 AM Scheduled Provider:FABIAN CONDE Location:[facility] Appointment Type:CV OV Appointment Date:04/12/2024 10:00:00 AM Scheduled Provider: Location:[facility] Appointment Type:DB Diabetic Individual Visit (AOH) Future Scheduled Tests Laboratory* Albumin/Creatinine Ratio, Random Urine 02/12/23 [facility] Evaluation + Plan note Future Appointments Appointment Date:12/27/2023 11:30:00 AM Scheduled Provider:WANDA MATA Location:[facility] Appointment Type:PC Wellness Annual Appointment Date:12/29/2023 10:30:00 AM Scheduled Provider:FABIAN CONDE Location:[facility] Appointment Type:CV OV Appointment Date:04/12/2024 10:00:00 AM Scheduled Provider: Location:[facility] Appointment Type:DB Diabetic Individual Visit (AO) Diagnostic Tests Pending * QFT-TB Plus (Client Incubated) 12/15/23 Future Scheduled Tests Laboratory* Albumin/Creatinine Ratio, Random Urine 02/12/23 [facility] Evaluation + Plan note Future Appointments Appointment Date:01/03/2024 11:15:00 AM Scheduled Provider:FABIAN CONDE Location:[facility] Appointment Type:CV OV Appointment Date:04/12/2024 10:00:00 AM Scheduled Provider: Location:[facility] Appointment Type:MEDS - Diabetic Individual Visit Future Scheduled Tests Laboratory* Albumin/Creatinine Ratio, Random Urine 12/27/23 [facility] Evaluation + Plan note Future Appointments Appointment Date:04/12/2024 10:00:00 AM Scheduled Provider: Location:[facility] Appointment Type:MEDS - Diabetic Individual Visit Future Scheduled Tests Laboratory* Albumin/Creatinine Ratio, Random Urine 12/27/23 [facility] evaluation + Plan note Future Appointments Appointment Date:07/21/2024 10:00:00 AM Scheduled Provider: Location:[facility] Appointment Type:MEDS - Diabetic Individual Visit Appointment Date:10/05/2024 10:00:00 AM Scheduled Provider:FABIAN CONDE Location:[facility] Appointment Type:CV OV Future Scheduled Tests Laboratory* Albumin/Creatinine Ratio, Random Urine 12/27/23 [facility] evaluation + Plan note Future Appointments Appointment Date:08/14/2024 02:00:00 PM Scheduled Provider:WANDA MATA Location:[facility] Appointment Type:PC OV Appointment Date:10/05/2024 10:00:00 AM Scheduled Provider:FABIAN CONDE Location:[facility] Appointment Type:CV OV Appointment Date:10/18/2024 09:30:00 AM Scheduled Provider: Location:[facility] Appointment Type:MEDS - Diabetic Individual Visit Future Scheduled Tests Laboratory* Albumin/Creatinine Ratio, Random Urine 12/27/23 [facility] Evaluation + Plan note Future Appointments Appointment Date:08/14/2024 02:00:00 PM Scheduled Provider:WANDA MATA Location:[facility] Appointment Type:PC OV Appointment Date:10/05/2024 10:00:00 AM Scheduled Provider:FABIAN CONDE Location:[facility] Appointment Type:CV OV Appointment Date:10/18/2024 09:30:00 AM Scheduled Provider: Location:[facility] Appointment Type:MEDS - Diabetic Individual Visit Diagnostic Tests Pending * QFT-TB Plus (Client Incubated) 08/04/24 Future Scheduled Tests Laboratory* Albumin/Creatinine Ratio, Random Urine 12/27/23 [facility] Evaluation + Plan note Future Appointments Appointment Date:04/18/2025 10:00:00 AM Scheduled Provider:FABIAN CONDE Location:[facility] Appointment Type:CV OV Appointment Date:04/19/2025 10:00:00 AM Scheduled Provider: Location:[facility] Appointment Type:MEDS - Diabetic Individual Visit [facility] Evaluation + Plan note Future Appointments Appointment Date:06/07/2025 10:00:00 AM Scheduled Provider: Location:[facility] Appointment Type:MEDS - Diabetic Individual Visit Appointment Date:10/17/2025 11:00:00 AM Scheduled Provider:FABIAN CONDE Location:[facility] Appointment Type:CV OV Future Scheduled Tests Radiology* CT Coronary Angiography w+w/o Contrast 04/18/25 * CT Coronary Extracardiac 04/18/25 [facility] Evaluation + Plan note Future Appointments Appointment Date:07/11/2025 09:00:00 AM Scheduled Provider: Location:[facility] Appointment Type:MEDS - Diabetic Individual Visit Appointment Date:10/17/2025 11:00:00 AM Scheduled Provider:FABIAN CONDE Location:[facility] Appointment Type:CV OV Future Scheduled Tests Radiology* CT Coronary Angiography w+w/o Contrast 04/18/25 * CT Coronary Extracardiac 04/18/25 [facility] Evaluation + Plan note Future Appointments Appointment Date:08/01/2025 05:00:00 PM Scheduled Provider:WANDA MATA Location:[facility] Appointment Type:PC OV Appointment Date:08/08/2025 09:00:00 AM Scheduled Provider: Location:[facility] Appointment Type:MEDS - Diabetic Individual Visit Appointment Date:10/17/2025 11:00:00 AM Scheduled Provider:FABIAN CONDE Location:[facility] Appointment Type:CV OV Diagnostic Tests Pending * QFT-TB Plus (Client Incubated) 07/20/25 Future Scheduled Tests Radiology* CT Coronary Angiography w+w/o Contrast 04/18/25 * CT Coronary Extracardiac 04/18/25 [facility] Evaluation + Plan note Future Appointments Appointment Date:08/08/2025 09:00:00 AM Scheduled Provider: Location:[facility] Appointment Type:MEDS - Diabetic Individual Visit Appointment Date:08/22/2025 11:00:00 AM Scheduled Provider:LEONEL GUILLERMO MD Location:[facility] Appointment Type:PC OV Appointment Date:10/17/2025 11:00:00 AM Scheduled Provider:FABIAN CONDE Location:[facility] Appointment Type:CV OV Future Scheduled Tests Radiology* CT Coronary Angiography w+w/o Contrast 04/18/25 * CT Coronary Extracardiac 04/18/25 [facility] Evaluation + Plan note Future Appointments Appointment Date:09/26/2025 09:30:00 AM Scheduled Provider: Location:[facility] Appointment Type:MEDS - Diabetic Individual Visit Appointment Date:10/05/2025 10:15:00 AM Scheduled Provider:LEONEL GUILLERMO MD Location:[facility] Appointment Type:PC OV Follow Up Appointment Date:10/17/2025 11:00:00 AM Scheduled Provider:FABIAN CONDE Location:[facility] Appointment Type:CV OV Future Scheduled Tests Laboratory* C-Reactive Protein 08/22/25 * Uric Acid 08/22/25 * A1C Hemoglobin 08/22/25 * Complete Blood Count 08/22/25 * Lipid Profile 08/22/25 * Vitamin D Level 08/22/25 * Complete Metabolic Panel 08/22/25 Radiology* CT Coronary Angiography w+w/o Contrast 04/18/25 * CT Coronary Extracardiac 04/18/25 [facility] Evaluation + Plan note Future Appointments Appointment Date:09/20/2025 10:45:00 AM Scheduled Provider:LEONEL GUILLERMO MD Location:[facility] Appointment Type:PC Acute Appointment Date:09/26/2025 09:30:00 AM Scheduled Provider: Location:[facility] Appointment Type:MEDS - Diabetic Individual Visit Appointment Date:10/05/2025 10:15:00 AM Scheduled Provider:LEONEL GUILLERMO MD Location:[facility] Appointment Type:PC OV Follow Up Appointment Date:10/17/2025 11:00:00 AM Scheduled Provider:FABIAN CONDE Location:[facility] Appointment Type:CV OV Future Scheduled Tests Radiology* CT Coronary Angiography w+w/o Contrast 04/18/25 * CT Coronary Extracardiac 04/18/25 [facility] Evaluation + Plan note Future Appointments Appointment Date:09/26/2025 09:30:00 AM Scheduled Provider: Location:[facility] Appointment Type:MEDS - Diabetic Individual Visit Appointment Date:10/05/2025 10:15:00 AM Scheduled Provider:LEONEL GUILLERMO MD Location:[facility] Appointment Type:PC OV Follow Up Appointment Date:10/17/2025 11:00:00 AM Scheduled Provider:FABIAN CONDE Location:[facility] Appointment Type:CV OV Future Scheduled Tests Radiology* CT Coronary Angiography w+w/o Contrast 04/18/25 * CT Coronary Extracardiac 04/18/25 [facility] Evaluation note* Diagnosis Left shoulder pain, unspecified chronicity- Primary Chest pain, unspecified type documented in this encounter [facility] Work Phone: Evaluation note* Diagnosis Acute pain of left knee Pain and swelling of left shoulder documented in this encounter [facility] Work Phone: Evaluation note* Diagnosis Pain in central left upper extremity Elevated LFTs Other abnormal blood chemistry documented in this encounter [facility] Work Phone: Evaluation note* Diagnosis Calculus of gallbladder without cholecystitis without obstruction- Primary Calculus of gallbladder without mention of cholecystitis or obstruction Hyperglycemia Other abnormal glucose documented in this encounter [facility] Work Phone: Evaluation note* Diagnosis Biliary colic- Primary Calculus of gallbladder without mention of cholecystitis or obstruction documented in this encounter [facility] Work Phone: Evaluation note* Diagnosis Chest pain, unspecified type- Primary documented in this encounter [facility] Work Phone: Evaluation note* Diagnosis Nausea- Primary Nausea alone Diarrhea, unspecified type documented in this encounter [facility] Work Phone: Evaluation noteNo assessment information available [facility] Work Phone: Evaluation note* Diagnosis Pain of left hand- Primary [facility] Diagnosis Chest pain, unspecified type- Primary documented [facility] this encounter [facility]* Diagnosis Finger pain, left- Primary Pain in soft tissues of limb documented in this encounter [facility]* Diagnosis Abdominal pain of multiple sites- Primary documented in this encounter [facility]* Diagnosis Finger joint swelling, left- Primary documented in this encounter [facility]* Diagnosis Finger joint swelling, right Finger joint swelling, left [facility] Narrative No data available for this section [facility] Hospital Discharge instructions* Instructions* Rafael Ring MD - 09/02/2021 Please keep your follow-up with the surgeon as scheduled. Return for any worsening or worrisome symptoms without fail. documented in this encounter[facility] Work Phone: Hospital Discharge instructions* Instructions* Philip Doran MD - 09/11/2021 POST-OPERATIVE INSTRUCTIONS LAPAROSCOPIC/ROBOTIC SURGERY Thank you very much for allowing me to participate in your care, it is truly a privilege. Below please see discharge orders that will help you during your recovery. Please do not hesitate to call theoffice at [phone] for any questions. After hours, the same number will allow you to reach the on-call surgeon. ? Call the office to schedule your post-operative appointment with Dr. Doran or PA/DRAG CAR RACER for 2 weeks if not already scheduled. [...] several days. Please call the office at [phone] for any questions and too make your post op appointment if needed. Thank you again for allowing me to participate in your care, and get well soon! Philip Doran MD FACS documented in this [facility] Work Phone: Hospital Discharge instructions No data available for this section [facility] Hospital Discharge instructions* Attachments The following attachments cannot be sent through Care Everywhere. * Hand Pain (Bhutanese) documented in this [facility] Discharge instructions* Attachments The following attachments cannot be sent through Care Everywhere. * Chest Pain Discharge Instructions (Bhutanese) * Tips to Help You Worry Less (Bhutanese) documented in this [facility] Discharge instructions* Attachments The following attachments cannot be sent through Care Everywhere. * Abdominal Pain, Adult ED (Bhutanese) documented in this [facility]Progress note No data available for this section [facility] Reason for referral (narrative)No reason for referral information [facility] Work Phone: Summary Purpose Family History No [...] FoundDocuments on File Type Date Recorded Patient Web Software Engineer Expl anation Advance Directives and Living Will Power of Bolt Threader Documents on File Type Date Recorded Patient Web Software Engineer Expl anation ACP-Advance Directive ACP-Power of Bolt Threader Documents on File Type Date Recorded Patient Web Software Engineer Expl anation ACP-Advance Directive ACP-Power of Bolt Threader Latest Code Status on File Code Status [...] April 23, 2018 6 :12pm Power of Bolt Threader No April 23, 2018 6:12pm Advance Directive Response Recorded Date/ Time Advance Directives No April 13 6 8:50am Living Will No April 23, 2018 7 :12pm Power of Bolt Threader No April 23, 2018 7:12pm Advance Directive Response Recorded Date/ Time Advance Directives No April 13 6 8:50am Discharge Instructions * Instructions* Jason Jarrett MD - 12/27/2019 Hold abilify till symptoms resolve * Attachments The following attachments cannot be sent through Care Everywhere. * Hidradenitis Suppurativa (Bhutanese) * Shoulder Stretches: Exercises (Bhutanese) documented in this encounter Assessments Diagnosis Acute pain of left shoulder- Primary Hidradenitis axillaris Hidradenitis Diastolic blood pressure 90 mm Hg or higher Reason for Referral Status Reason Specialty Diagnoses / Procedures Referre d By Contact Referred To Contact [facility] Diagnoses Pain and swelling of left shoulder Procedures MRI UPPER EXTREMITY LEFT W JT WO CONTRAST Stewart Nur, PRESS OPERATOR [employer] - DRAG CAR RACER [address] [address] [place] [address] Status Reason Specialty Diagnoses / Procedures Referre d By Contact Referred To Contact Open Radiology Diagnoses Elevated LFTs Procedures US ABDOMEN LIMITED Long Gonzalez, DO [address] [place] [address] Status Reason Specialty Diagnoses / Procedures Referre d By Contact Referred To Contact Closed Radiology Diagnoses Pain in central left upper extremity Procedures MRI CERVICAL SPINE WO CONTRAST Long Gonzalez, DO [address] [place] [address] Specialty Diagnoses / Procedures Referred By Contac t Referred To Contact Cardiology Diagnoses Chest pain, unspecified type Jason Jarrett MD [address] [place] [address] [facility] [address] [place] [address] Referral ID Status Reason Start Date Expiration Date V isits Requested Visits Authorized [id number] Open Specialty Services Required 01/20/2022 01/20/2023 1 1 Scheduling Instructions [facility] [address] [place] [address] Chief Complaint and Reason for Visit Chief Complaint Admit Date CHEST PAIN May 23, 2025 12:13 pm CHEST PAIN May 23, 2025 5:25p m Chief Complaint Admit Date CHEST PAIN May 23, 2025 12:13 pm CHEST PAIN May 23, 2025 5:25p m Block, Cervical Epidural August 06, 2025 7:45am Additional Source Comments (unrecognized sect ion and content) No Status Records FoundNo Status Records FoundNo Status Records FoundNo Status Records FoundNo Status Records FoundNo Status Records FoundNo Status Records Found INFORMATION SOURCE (unrecogn ized section and content) DATE CREATED AUTHOR 02/27/2019 [facility] DATE CREATED AUTHOR AUTHOR'S ORGANIZ ATION 03/01/2019 [facility] DATE CREATED AUTHOR AUTHOR'S ORGANIZ ATION 05/08/2022 [facility] DATE CREATED AUTHOR AUTHOR'S ORGANIZ ATION 07/21/2024 [facility] ([place]) DATE CREATED AUTHOR AUTHOR'S ORGANIZ ATION 09/27/2025 [facility] DATE CREATED AUTHOR AUTHOR'S ORGANIZ ATION 10/03/[address] [facility] DATE CREATED AUTHOR AUTHOR'S ORGANIZ ATION 10/04/2025 [facility] Reason for Visit (unrecogniz ed section and [...] attack Reason Comments Hand Pain Denies injury Reason Comments Abdominal Pain Nausea Back Pain Reason Comments New Patient Left Hand, Long Fing er Pain Ordered Prescriptions (unrec ognized section and content) [...] (Given - Provid er: Monica Morales RN) sodium chloride flush 0.9 % [...] 100 mL IVPB (COMPLETED) 2,000 mg, IntraVENous, INSTRUCTOR FLYING TO O.R., 1 dose, On Mica 09/11/21 [...] surgery) 0756 (Given - Provid er: Ellie Ryna RN) indocyanine green (IC-GREEN) syringe 2.5 mg [...] Mica 05/07/22 at 1942, For 1 dose 194 (New Bag - Prov ider: Monica Morales RN)2048 (Stopped - Provider: Monica Morales RN) ondansetron (ZOFRAN) injection 4 mg (COMPLETED) 4 mg, IntraVENous, ONCE, 1 dose, On Mica 05/07/22 at 1942 1948 (Given - Provid er: Monica Morales RN) Scheduled Medication Order 03/30/2024 03/31/2024 04/01/2024 aspirin [...] (Given - Provid er: Shereen Interiano RN) Scheduled Medication Order 08/21/2025 08/22/2025 08/23/2025 ketorolac (Toradol) injection 15 mg (COMPLETED) 15 mg, IntraVENous, Once, On Mica 08/23/25 at 2049, For 1 dose 2053 (Given - Provid er: Wanda Guzman, OMID) ondansetron (Zofran) injection 4 mg (COMPLETED) 4 mg, IntraVENous, Once, On Mica 08/23/25 at 2049, For 1 dose 2053 (Given - Provid er: Wanda Guzman RN) sodium chloride 0.9 % bolus 1,000 mL (COMPLETED) 1,000 mL, IntraVENous, at 1,000 mL/hr, Administer over 1 Hours, Once, On Mica 08/23/25 at 2049, For 1 dose 2051 (New Bag - Prov ider: Wanda Guzman RN)2212 (Stopped - Provider: Tiffanie Bonilla RN) Care Teams (unrecognized sec tion and content) Dermatology Sales Representative Relationship Specialty Start Date End Date Long Gonzalez, [address] [place] [address] PCP - General Family Medicine 12/27/19 Dermatology Sales Representative Relationship Specialty Start Date End Date Long Gonzalez, DO [address] [place] [address] PCP - General Family Medicine 12/27/19 Team Status: Active Member Role Status Dates Dr. Andrea Lazaro MD Family Provider Active Wanda Mata DRAG CAR RACER, DRAG CAR RACER-C Primary Care Provider Activ e Team Status: Inactive Member Role Status Dates Dr. Marc Aquino MD Attending Provider, Referring Provider Active Wanda Mata DRAG CAR RACER, DRAG CAR RACER-C Primary Care Provider Activ e Team Status: Inactive Member Role Status Dates Wanda Mata DRAG CAR RACER, DRAG CAR RACER-C Primary Care Provider Activ e Dr. Marc Aquino MD Attending Provider, Referring Provider Active Dermatology Sales Representative Relationship Specialty Start Date End Date Wanda Mata APRN - CNP [address] [place] [phone] PCP - General Family Nurse Practitioner 08/27/23 Dermatology Sales Representative Relationship Specialty Start Date End Date Wanda Mata APRN - CASE SPECIALIST [address] [place] [id number] PCP - General Family Nurse Practitioner 08/27/23 Team Status: Inactive Member Role Status Dates Wanda Mata DRAG CAR RACER, DRAG CAR RACER-C Primary Care Provider, Refe rring Provider Active Dr. Marc Aquino MD Attending Provider Active Dermatology Sales Representative Relationship Specialty Start Date End Date Wanda Mata APRN - CASE SPECIALIST [address] [place] [address] PCP - General Family Nurse Practitioner 08/27/23 Dermatology Sales Representative Relationship Specialty Start Date End Date Wanda Mata APRN - CNP [address] [place] [id number] PCP - General Family Nurse Practitioner 08/27/23 Dermatology Sales Representative Relationship Specialty Start Date End Date Wanda Mata APRN - CNP [address] [place] [id number] PCP - General Family Nurse Practitioner 08/27/23 Dermatology Sales Representative Relationship Specialty Start Date End Date Wanda Mata APRN - CASE SPECIALIST [address] [place] [phone] PCP - General Family Nurse Practitioner 08/27/23 Team Status: Active Member Role Status Dates Wanda Mata DRAG CAR RACER, DRAG CAR RACER-C Primary Care Provider Activ e Team Status: Inactive Member Role Status Dates Wanda Mata DRAG CAR RACER, DRAG CAR RACER-C Primary Care Provider Activ e Start: February 05, 2025 End: February 05, 2025 Dr. Marc Aquino MD Attending Provider Active Start: February 05, 2025 End: February 05, 2025 Dr. Marc Aquino MD Referring Provider Active Start: February 05, 2025 End: February 05, 2025 Team Status: Active Member Role/Relationship Status Dates Wanda Mata DRAG CAR RACER, DRAG CAR RACER-C Primary Care Provider Activ e Team Status: Inactive Member Role/Relationship Status Dates Wanda Mata DRAG CAR RACER, DRAG CAR RACER-C Primary Care Provider Activ e Start: February 05, 2025 End: February 05, 2025 Dr. Marc Aquino MD Attending Provider Active Start: February 05, 2025 End: February 05, 2025 Dr. Marc Aquino MD Referring Provider Active Start: February 05, 2025 End: February 05, 2025 Team Status: Inactive Member Role/Relationship Status Dates Wanda Mata DRAG CAR RACER, DRAG CAR RACER-C Primary Care Provider Activ e Start: May 23, 2025 End: May 23, 2025 Fabian Fish DRAG CAR RACER, DRAG CAR RACER-C Attending Provider Active Start: May 23, 2025 End: May 23, 2025 Fabian Fish DRAG CAR RACER, DRAG CAR RACER-C Referring Provider Active Start: May 23, 2025 End: May 23, 2025 Team Status: Active Member Role/Relationship Status Dates Wanda Mata DRAG CAR RACER, DRAG CAR RACER-C Primary Care Provider Activ e Start: May 23, 2025 Fabian Fish DRAG CAR RACER, DRAG CAR RACER-C Referring Provider Active Start: May 23, 2025 Fabian Fish DRAG CAR RACER, DRAG CAR RACER-C Other Provider Active Star t: May 23, 2025 Dr. Mahesh Olivares MD Attending Provider Active S tart: May 23, 2025 Team Status: Inactive Member Role/Relationship Status Dates Wanda Mata DRAG CAR RACER, DRAG CAR RACER-C Primary Care Provider Activ e Start: May 23, 2025 End: May 23, 2025 Fabian Fish DRAG CAR RACER, DRAG CAR RACER-C Attending Provider Active Start: May 23, 2025 End: May 23, 2025 Fabian Fish DRAG CAR RACER, DRAG CAR RACER-C Referring Provider Active Start: May 23, 2025 End: May 23, 2025 Team Status: Active Member Role/Relationship Status Dates Wanda Mata DRAG CAR RACER, DRAG CAR RACER-C Primary Care Provider Activ e Start: May 23, 2025 Fabian Fish DRAG CAR RACER, DRAG CAR RACER-C Referring Provider Active Start: May 23, 2025 Fabian Fish DRAG CAR RACER, DRAG CAR RACER-C Other Provider Active Star t: May 23, 2025 Dr. Mahesh Olivares MD Attending Provider Active S tart: May 23, 2025 Team Status: Inactive Member Role/Relationship Status Dates Wanda Mata DRAG CAR RACER, DRAG CAR RACER-C Primary Care Provider Activ e Start: August 06, 2025 End: August 06, 2025 Dr. Marc Aquino MD Attending Provider Active Start: August 06, 2025 End: August 06, 2025 Dr. Marc Aquino MD Referring Provider Active Start: August 06, 2025 End: August 06, 2025 Dermatology Sales Representative Relationship Specialty Start Date End Date GuillermoLeonel Chiqui [address] [place] [address] PCP - General Family Medicine 08/23/25 Dermatology Sales Representative Relationship Specialty Start Date End Date Leonel Guillermo Chiqui [address] [place] [address] PCP - General Family Medicine 08/23/25 Dermatology Sales Representative Relationship Specialty Start Date End Date Leonel Guillermo Chiqui [address] [place] [address] PCP - General Family Medicine 08/23/25 Care Team (unrecognized sect ion and content) Personnel Name: SYEDA MCGARRY Address: Address: [address] [place] [address] Care Team Personnel Name: SYEDA MCGARRY Position: P4 Advanced Weekday Babysitter Member Role: Primary Care Physician Address: Address: [address] [place] [address] Care Team Related Persons Name: MARYBJORN STEWART Address: Home [address] [place] [phone] FOR RECORDS PERTAINING TO PATIENTS WHO ARE [...] BE BASED ON THE PRIMARY CLINICAL RECORDS. [facility]. provides no warranty or guarantee of the accuracy or completeness of information in this document.
[2025-10-08] MEDS: Lactated Ringers 1,000 ML 15 ML IV (06:27)
--- NOTE | 2025-10-08 06:30 | RAD_ITS ---
PROCEDURE: CERV SPINE 4 OR 5 VIEWS 10/08/2025 REASON FOR EXAM: CERVICAL RADIOFREQUENCY ABLATION TECHNIQUE: Procedure Code: [facility] Modality: DX Procedure: CERV SPINE 4 OR 5 VIEWS COMPARISON: Radiographs dated 08/20/2025. FINDINGS: 9 fluoroscopic spot images of the cervical spine demonstrate instrumentation at multiple levels, which appear to be see 4 through C7, however patient positioning may affect vertebral body numbering. Total reported fluoroscopy time: 13.9 seconds Total exposure: 7.87 mGy RAD/Cerv Spine 4 or 5 Views IMPRESSION: As above. Reading Location: [id number]
--- NOTE | 2025-10-08 06:35 | PCM.PRE.AN2 ---
ASA Classification* ASA Classification ASA Classification: 3 Assessment & Plan Anesthesia* Anesthesia Assessment Anesthesia Assessment: Discussed sedation and/or anesthesia options, risks, benefits, and alternatives with patient/parents/legal guardian/POA. Questions invited. The patient/parents/legal guardian/POA seems to understand and agrees to proceed with anesthesia plan. Reviewed the physical assessment, medical history, allergy history and patient home medications list prior to surgery/procedure/anesthetic and documented any changes. Performed airway and anesthesia risk assessments. Anesthesia Type Anesthesia Type: MAC History Source History Obtained from:: Patient and Chart Anesthesia Focused Assessment* Temperature: 96.9 F Pulse Rate: 60 Blood Pressure: 119/76 Respiratory Rate: 16 Pulse Ox: 100 Oxygen Delivery Method: Room Air Airway Assessment Mouth opens: >3 cm Mallampati Score: IV Teeth Condition: Partial (Patient has upper and lower partials. They are out.) Neck Range of motion (ROM): Limited ROM (Severe Restriction) Labs Anesthesia Preop lab: CBC WBC, (4.4-11.0) 5.1 K/mm3 02/26/22, 14:52 RBC, (4.6-6.2) 5.34 M/mm3 02/26/22, 14:52 Hgb, (13.0-16.5) 15.8 g/dL 02/26/22, 14:52 Hct, (40-54) 44.2 % 02/26/22, 14:52 Plt Count, (150-450) 222 K/mm3 02/26/22, 14:52 CHEMISTRY Potassium, (3.5-5.1) 3.8 mmol/L 02/26/22, 14:52 Sodium, (136-145) 134 mmol/L L 02/26/22, 14:52 BUN, (7-18) 5 mg/dL L 02/26/22, 14:52 Creatinine, (0.70-1.30) 0.88 mg/dL 02/26/22, 14:52 Glucose, (74-106) 274 mg/dL H 02/26/22, 14:52 POC Glucose, (74-106) 119 mg/dL H 08/06/25, 08:13 TSH, (0.358-3.74) 2.07 uIU/mL 04/25/19, 12:14 COAG Pre-Assessment Diagnosis/Proposed Procedure Planned Operative Procedure(s): CERVICAL RFA C4,5,6,7 UNDER FLUOROSCOPY Anesthesia History Anesthesia History - contestant coordinator: Anesthesia History - contestant coordinator Hx Hospitalization No 10/02/25 08:18 Any Problems With Anesthesia No 10/02/25 08:18 Cholinesterase deficiency No 10/02/25 08:18 You/Your Family Experience No 10/02/25 08:18 fever (hyperthermia) with Relationship Recent Exposure to Contagious No 08/06/25 08:17 Disease Does patient have nerve No 10/02/25 08:18 stimulator Patient instructed to have device shut off --Does patient have Pacemaker No 10/08/25 06:21 or ICD? When Was Last Pacemaker Check QUESTION #4 FULL TEXT: You/Your Family Experience fever (hyperthermia) with Anesthesia Last Oral Intake Last Oral intake: Last Oral Intake NPO since 23:30 10/08/25 06:21 Meds taken in AM with sips of water? Meds patient instructed to take am of surgery Any additional information?: Yes Meds taken in AM with sips of water?: No PONV PONV - contestant coordinator: PONV - contestant coordinator Female No 10/02/25 08:18 HX of Motion Sickness No 10/02/25 08:18 HX of N/V After Surgery No 10/02/25 08:18 Non-Smoker Yes 10/02/25 08:18 Duration of Surgery greater No 10/02/25 08:18 than 60 minutes Number of Risk Factors 1 10/02/25 08:18 PONV Score Low Risk 10/02/25 08:18 Height & Weight Height & Weight: Anesthesia: Height & Weight Height 5 ft 11 in 10/08/25 06:21 Weight: 105.687 kg 10/08/25 06:21 Body Mass Index (BMI) 32.5 10/08/25 06:21 Respiratory Assessment Respiratory Assessment - contestant coordinator: Respiratory Tract Infection Hx - contestant coordinator Hx Respiratory Tract Infection No 10/02/25 08:18 STOP Sleep Apnea STOP Sleep Apnea - contestant coordinator: STOP Sleep Apnea - contestant coordinator Hx Hypertension No 10/02/25 08:18 Hx Sleep Apnea No 10/02/25 08:18 CPAP BIPAP Do you snore loudly (louder No 10/02/25 08:18 than talking or can be heard Do you often feel tired/ No 10/02/25 08:18 fatigued/ sleepy during daytime? Has anyone observed you stop No 10/02/25 08:18 breathing during sleep? STOP Results Negative 10/02/25 08:18 QUESTION #5 FULL TEXT : Do you snore loudly (louder than talking or can be heard through closed doors)? 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 Specify any problems Hx of Preganancy in last 3 N/A 10/02/25 08:18 Months Nurse Filling Out Transfusion DSCHRIBER 10/02/25 08:18 & Questions: Date: 10/02/25 10/02/25 08:18 Time: 08:19 10/02/25 08:18 Patient unable to answer at this time (ie. confused, unrespo /Reproduction History /Reproductive History - contestant coordinator: /Reproductive Hx- contestant coordinator Hx Now No 10/02/25 08:18 Gestational Age (in weeks): EDC: Hx Hx Para Hx Section SAB No 10/02/25 08:18 Does the father of the baby or his family experience fever w Father of the baby Malignant Hypertension history comment Active Medications Active Medications: Current Medications Generic Name Dose Route Start Last Admin Trade Name Freq PRN Reason Stop Dose Admin Lactated Ringer's 1,000 mls @ 15 mls/hr 10/08/25 06:00 10/08/25 06:27 IV 15 mls/hr .Q48H CLAY Administration PFSH Medical History Wears glasses Wears partial dentures Arthritis High cholesterol Restless legs Pain Migraine headache Injury of head and neck Seizures Dietary restriction Gastric reflux History of stress test Heart murmur Back pain Cardiology follow-up encounter Schizophrenia Bipolar disorder Depression Anxiety Gastric reflux Non-smoker Leg muscle spasm Family history of fatty liver History of Crohn's disease 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 due to type 2 diabetes mellitus Diabetes mellitus type 2 in obese Chronic back pain greater than 3 months duration Body mass index [BMI] 34.0-34.9, adult Home Medications ?Medication ?Instructions ?Recorded ?Last Taken ?Type hydroxyzine pamoate 25 mg capsule 25 mg PO BID 04/13/16 10/06/25 History benztropine 1 mg tablet 1 mg PO DAILY 02/10/22 10/06/25 History escitalopram oxalate 10 mg tablet 10 mg PO DAILY 02/10/22 10/06/25 History (Lexapro) fenofibrate nanocrystallized 145 145 mg PO DAILY 02/10/22 10/06/25 History mg tablet fluticasone propionate 50 1 spray intranasal DAILY 02/10/22 10/06/25 History mcg/actuation nasal spray,suspension dapagliflozin propanediol 5 mg 5 mg PO DAILY 02/07/24 10/04/25 History tablet (Farxiga) haloperidol 10 mg tablet 10 mg PO QHS 02/07/24 10/06/25 History dulaglutide 0.75 mg/0.5 mL 0.75 mg subcut PEREZ 07/05/25 09/30/25 History subcutaneous pen injector (Trulicity) omeprazole 20 mg capsule,delayed 20 mg PO DAILY 10/02/25 10/06/25 History release Allergy/AdvReac Type Severity Reaction Status Date / Time naproxen Allergy Intermediate Other Verified 10/08/25 06:14 Penicillins Allergy Hives Verified 10/08/25 06:14 prednisone Allergy Hives Verified 10/08/25 06:14 quetiapine fumarate (From Allergy Other Verified 10/08/25 06:14 Seroquel) Surgical History History of radiofrequency ablation (RFA) of nerve of cervical spine History of cholecystectomy Social History Smoking Status: Never smoker Review of Systems (Anesthesia) ROS Narrative System reviewed and no additional complaints, except as documented.
[2025-10-08] MEDS: Lactated Ringers 500 ML IV (07:29)
[2025-10-08] MEDS: Lidocaine 1% (5 ml sdv) 5 ML Vial 4 ML IV (07:41)
[2025-10-08] MEDS: Lidocaine 1% (30 ml sdv) 30 ML Vial ×2 (07:42→07:44)
--- NOTE | 2025-10-08 07:59 | OP.PCM_ITS ---
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 BLOOD LOSS: Minimal. COMPLICATIONS: None. DESCRIPTION OF PROCEDURE: History and physical of today was reviewed. Risks and benefits of the procedure were explained. The patient understood and agreed to proceed. Informed consent was obtained. IV inserted per routine protocol. The patient was taken to the operating room and placed in the prone position with a pillow positioned underneath the chest. The neck area was prepped and draped in a sterile fashion using iodine x3. Under fluoroscopy guidance on an AP view, the C4 through C7 vertebral bodies were visualized. The skin and subcutaneous tissue was anesthetized with approximately 10 mL of 1% lidocaine using a 25-gauge regular needle. Under direct visualization on fluoroscopy on a lateral view, using a 21-gauge 10-cm with a 10-mm curved active-tip radiofrequency ablation needle, the needle was passed through the skin. The tip of the needle was maneuvered and directed towards the epiphyseal junction of each corresponding vertebra, starting on the left C4, ending on the left C7, passing through the C5 and C6. Once the tip of the needle was at the vicinity of the medial branch and at the middle of the trapezoid on the lateral view, the stylette of each needle was then removed. After negative aspiration of blood or CSF and confirmation on AP, oblique as well as lateral view, radiofrequency ablation probe was then inserted at each level. Impedance was then recorded at C4 to be 282 ohm, at C5 to be 244 ohm, at C6 to be 249 ohm, and at C7 to be 267 ohm. Motor-evoked potential was then initiated to 2 Hz and 1.5 volt without any motor response to each corresponding level or the left arm. The probe was then removed intact and a total of 4 mL of preservative-free 1% lidocaine was injected in divided doses between those four levels after negative aspiration of blood or CSF. After repeated confirmation, the radiofrequency ablation probe was then inserted and after repeated confirmation on AP, oblique as well as lateral view, radiofrequency ablation was then initiated to approximately 80 degree Celsius for 60 second at each level. Once concluded, the probe was then removed intact. A total of 4 mL of preservative-free 0.25% Marcaine with 40 mg of Depo-Medrol was injected in divided doses between those four levels. The needles were then removed intact. The patient experienced no sign or symptoms of intrathecal or intravascular injection. The patient experienced no paresthesia. The procedure was completed without any apparent difficulty or any complications. The patient appeared to tolerate it well. Sensory as well as motor exam was unchanged from prior to the procedure. ASSESSMENT AND PLAN: This is a 39-year-old male with Cervical spondylosis, cervical degenerative disc disease, cervical facet arthropathy, status post left-sided cervical radiofrequency ablation of the medial branch at C4-5, C5-6, C6-7 under fluoroscopic guidance, patient will continue his current medications, patient will follow-up in approximately 2 weeks for reevaluation. Surgical Findings: 0 Complications Complications: No Admit VTE Documentation VTE Present on Admission: No VTE Mechan Device Prophylaxis: None VTE Pharm Prophylaxis ordered?: No
--- NOTE | 2025-10-08 08:11 | PCM.POST.ANE ---
Anesthesia: Postop Eval I Current Vital Signs Temperature: 98 F Pulse Rate: 66 Blood Pressure: 117/67 Respiratory Rate: 16 Pulse Ox: 99 Assessment Airway patent: Yes Spontaneous unlabored respirations: Yes nausea: No Vomiting: No Anesthesia Complication: No Fluid Hydration Crystalloid volume administer (ml): 500 Total IV fluid infused: 500 Progress Note Anesthesia document: Postop Eval 1 completed: Yes
--- NOTE | 2025-10-08 10:18 | POSTOPAN2_ITS ---
Anesthesia Postop Eval I Sum Postop Eval Completion status Anesthesia document: Postop Eval 1 completed: Yes Anesthesia Postop Eval I Summary Anesthesia Postop Eval I Summary: Anesthesia Postop Eval I: Assessment Summary Airway patent Yes 10/08/25 08:11 [email or web address] Spontaneous unlabored Yes 10/08/25 08:11 [email or web address] respirations Mental status nausea No 10/08/25 08:11 [email or web address] Vomiting No 10/08/25 08:11 [email or web address] Anesthesia Postop Eval I: Fluid Summary Crystalloid volume administer 500 10/08/25 08:11 [email or web address] (ml) Colloids volume administered ( ml) Blood Product volume administered (ml) Total IV fluid infused 500 10/08/25 08:11 [email or web address] Anesthesia Postop Eval I: Summary Notes Anesthesia Complication No 10/08/25 08:11 [email or web address] Anesthesia Complication Comment: Post-operative progress note Anesthesia: Postop Eval II Evaluation Mental status: Awake and Calm Pain Level: 0 nausea: No Vomiting: No
--- NOTE | 2025-10-08 10:18 | PCM.POSTANE2 ---
Anesthesia Postop Eval I Sum Postop Eval Completion status Anesthesia document: Postop Eval 1 completed: Yes Anesthesia Postop Eval I Summary Anesthesia Postop Eval I Summary: Anesthesia Postop Eval I: Assessment Summary Airway patent Yes 10/08/25 08:11 [email or web address] [email or web address] Spontaneous unlabored Yes 10/08/25 08:11 SILK SCREEN [email or web address] respirations Mental status nausea No 10/08/25 08:11 SILK SCREEN [email or web address] Vomiting No 10/08/25 08:11 SILK SCREEN [email or web address] Anesthesia Postop Eval I: Fluid Summary Crystalloid volume administer 500 10/08/25 08:11 SILK SCREEN [email or web address] (ml) Colloids volume administered ( ml) Blood Product volume administered (ml) Total IV fluid infused 500 10/08/25 08:11 SILK SCREEN [email or web address] Anesthesia Postop Eval I: Summary Notes Anesthesia Complication No 10/08/25 08:11 SILK SCREEN [email or web address] Anesthesia Complication Comment: Post-operative progress note Anesthesia: Postop Eval II Evaluation Mental status: Awake and Calm Pain Level: 0 nausea: No Vomiting: No
== END 2025-10-08 08:39 | disposition home or self-care (01) ==
LOC: SDC 05:35 → AC 05:36
PROVIDERS: PCP Registered Nurse; Referring Provider Anesthesiology Pain Medicine; Visit Provider Anesthesiology Pain Medicine
PROC: (CPT 64633; principal; 2025-10-08 07:15)
DX: M47.812 Spondylosis without myelopathy or radiculopathy, cervical region (principal); M50.30 Other cervical disc degeneration, unspecified cervical region
CPT/HCPCS: 64633; 64634 ×2; 01992; 72050; 76000; 82962